=== PATIENT | male | born 1960 | race Caucasian/White ===

== ENCOUNTER 2017-04-13 15:00 | Outpatient (RCR) | payer MEDICARE, SELFPAY | END 2017-04-25 23:59 | LOC: NS 15:00 | PROVIDERS: Family Provider Family Medicine Geriatric Medicine; PCP Family Medicine Geriatric Medicine; Visit Provider Specialist | DX: E66.8 Other obesity (principal); Z71.3 Dietary counseling and surveillance | CPT/HCPCS: 97802; 97803 ==

== ENCOUNTER 2017-05-04 11:44 | Outpatient (RCR) | payer MEDICARE, SELFPAY | END 2017-05-23 23:59 | LOC: NS 11:44 | PROVIDERS: Family Provider Family Medicine Geriatric Medicine; PCP Family Medicine Geriatric Medicine; Visit Provider Specialist | DX: E66.8 Other obesity (principal); Z71.3 Dietary counseling and surveillance | CPT/HCPCS: 97803 ==

== ENCOUNTER → 2017-05-16 10:28 | Outpatient (CLI) | payer MEDICARE, SELFPAY ==
--- NOTE | 2017-05-16 10:32 | RAD_ITS ---
STUDY: X-RAY - LEFT SHOULDER REASON FOR EXAM: Male, 57 years old. Injury. Pain. TECHNIQUE: 5 view(s) of the shoulder. COMPARISON: None. FINDINGS: Normal glenohumeral articulation. 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 Normal acromion. Normal humeral head and visualized proximal humerus. The soft tissue structures are unremarkable. Normal visualized pulmonary apex. RAD/Shoulder min 2 Views IMPRESSION: Acromioclavicular joint arthrosis. No acute abnormality identified. Electronically Signed: Ritesh Rodriguez MD at 18:29 EST , Service support ,
--- NOTE | 2017-05-16 10:32 | RAD_ITS ---
STUDY: X-RAY - PELVIS AND RIGHT HIP REASON FOR EXAM: Male, 57 years old. Fall. Pain. TECHNIQUE: Radiological exam, hip, unilateral, with pelvis when performed; 1 view. The films are underpenetrated due to the patient's obesity. COMPARISON: None. FINDINGS: There is a non-specific bowel gas pattern. Normal visualized soft tissue structures. Normal bilateral iliac wings, sacroiliac joints and visualized sacrum. Normal bilateral superior and inferior pubic rami. Normal pubic symphysis. Normal bilateral ischial tuberosities. Normal visualized femoral head. Normal acetabulum. Normal hip joint. RAD/Hip 2-3 Views with Pelvis IMPRESSION: No significant abnormality identified. Electronically Signed: Ritesh Rodriguez MD at 18:29 EST , Service support ,
--- NOTE | 2017-05-16 10:38 | RAD_ITS ---
STUDY: X-RAY - LUMBAR SPINE REASON FOR EXAM: Male, 57 years old. Pain. TECHNIQUE: Only a single frontal view(s) of the lumbar spine were obtained due to the patient's pain. COMPARISON: None FINDINGS: This extremely limited study shows diffuse lumbar spondylosis. There is mild SI joint arthrosis. The visualized soft tissue structures are unremarkable. RAD/Lumbar Spine 2 or 3 Views IMPRESSION: Extremely limited lumbar spine study as described. Electronically Signed: Ritesh Rodriguez MD at 18:28 EST , Service support ,
== END ==
PROVIDERS: Family Provider Family Medicine Geriatric Medicine; PCP Family Medicine Geriatric Medicine; Visit Provider Family Medicine Geriatric Medicine
DX: R52 Pain, unspecified (principal)
CPT/HCPCS: 72100; 73030; 73502

== ENCOUNTER 2017-06-15 14:00 | Outpatient (RCR) | payer MEDICARE, SELFPAY | END 2017-06-23 23:59 | LOC: NS 14:00 | PROVIDERS: Family Provider Family Medicine Geriatric Medicine; PCP Family Medicine Geriatric Medicine; Visit Provider Specialist | DX: E66.8 Other obesity (principal); Z71.3 Dietary counseling and surveillance | CPT/HCPCS: 97803 ==

== ENCOUNTER → 2017-06-20 10:54 | Outpatient (CLI) | payer MEDICARE, SELFPAY ==
--- NOTE | 2017-06-20 10:57 | ECHOD_ITS ---
Reason For Study: SOB Procedure This was a 2D Doppler, Color Flow transthoracic echocardiogram. The study was technically difficult. The study was technically limited. The exam was of poor technical quality due to patient body habitus. Exam performed in department. Left Ventricle Normal LV size. The estimated ejection fraction is 30 %. Moderately severe global left ventricular systolic dysfunction. There is moderate to severe global hypokinesis of the left ventricle. Right Ventricle Normal RV size. ICD or pacer leads identified within the right ventricle. Mild global right ventricular systolic dysfunction. Atria Normal left atrium. Normal right atrium. Mitral Valve Normal mitral valve. Tricuspid Valve Normal tricuspid valve. Mild (1+) tricuspid valve insufficiency. Pulmonary artery systolic pressure is 33 mmHg. Aortic Valve The aortic valve is not well visualized. Great Vessels Mildly dilated aortic root. The pulmonary artery is normal size. Pericardium/Pleural No pericardial effusion. MMode/2D Measurements & Calculations LVIDd: 5.7 cm IVSd: 1.3 cm Ao root diam: 3.9 cm LVIDs: 4.6 cm LVPWd: 1.1 cm LA dimension: 5.9 cm RVDd: 5.8 cm FS: 19.2 % Doppler Measurements & Calculations MV E max christos: 128.1 cm/sec Ao V2 max: 108.2 cm/sec LV V1 max: 76.0 cm/sec Ao max P.7 mmHg LV V1 max P.3 mmHg Ao V2 mean: 80.0 cm/sec Ao mean P.7 mmHg Ao V2 VTI: 18.5 cm PA V2 max: 66.8 cm/sec TR max christos: 258.1 cm/sec TR max P.6 mmHg Interpretation Summary Normal LV size. The estimated ejection fraction is 30 %. Moderately severe global left ventricular systolic dysfunction. Mild (1+) tricuspid valve insufficiency. Pulmonary artery systolic pressure is 33 mmHg. Ordering Physician: Esteban Tim Chi Referring Physician: Esteban Tim Chi Performed By: Siobhan Avery, ESPERANZA, RVT
== END ==
PROVIDERS: Family Provider Family Medicine Geriatric Medicine; PCP Family Medicine Geriatric Medicine; Visit Provider Family Medicine Geriatric Medicine
DX: R06.02 Shortness of breath (principal)
CPT/HCPCS: 93306

== ENCOUNTER 2017-07-06 11:02 | Outpatient (RCR) | payer MEDICARE, SELFPAY | END 2017-07-23 23:59 | LOC: NS 11:02 | PROVIDERS: Family Provider Family Medicine Geriatric Medicine; PCP Family Medicine Geriatric Medicine; Visit Provider Specialist | DX: E66.8 Other obesity (principal); Z71.3 Dietary counseling and surveillance | CPT/HCPCS: 97803 ==

== ENCOUNTER → 2017-07-09 15:36 | Outpatient (CLI) | payer MEDICARE, SELFPAY ==
[2017-07-09 17:08] LABS: Anion Gap 6 (5-15); BUN 27 mg/dL (7-18); BUN/Creat Ratio 23.9 RATIO (10-20); Calcium,Total 8.7 mg/dL (8.5-10.1); Chloride 104 mmol/L (98-107); Creatinine, Serum 1.13 mg/dL (0.70-1.30); EST Glomerular Filtration Rate 71 mL/min (>60); Est Glom Filt Rate - Afr Amer 86 mL/min (>60); Glucose 105 mg/dL (74-106); Potassium 4.2 mmol/L (3.5-5.1); Sodium Level 139 mmol/L (136-145)
[2017-07-09 17:38] LABS: BNP,B-Type NATRIURETIC PEPTIDE 520.8 pg/mL (0-100)
[2017-07-09 20:48] LABS: Absolute Lymphocyte Count 1.02 X10^3/ul (0.83-4.51); Absolute Neutrophil Count 6.5 X10^3/uL (2.0-7.7); Basophil# 0.02 X10^3/uL; Basophil% 0.2 % (0-1); Eosinophil# 0.05 X10^3/uL; Eosinophils% 0.6 % (0-5); Hematocrit 44.1 % (40-54); Hemoglobin 14.2 g/dl (13.0-16.5); Lymphocyte # 1.02 X10^3/ul (4.0); Mean Corp Hgb Conc 32.2 g/gl (32-36); Mean Corpuscular Hgb 32.5 pg (27.0-32.0); Mean Corpuscular Volume 100.9 fL (80-94); Monocyte# 0.84 X10^3/uL; Monocyte% 9.9 % (0-10); Neutrophil # 6.52 X10^3/uL (2.7-7.7); Neutrophil % 77.1 % (47-70); Platelet Count 181 K/mm3 (150-450); RBC Distribution Width CV 19.5 % (11.6-14.6); RBC Distribution Width SD 71.1 fl (35.1-43.9); Red Blood Count 4.37 M/mm3 (4.6-6.2); White Blood Count 8.5 K/mm3 (4.4-11.0)
[2017-07-09 20:49] LABS: Differential Indicated SCAN CRITERIA MET; POSITIVE COUNT NO; POSITIVE DIFFERENTIAL NO; POSITIVE MORPHOLOGY YES
[2017-07-09 22:52] LABS: Anisocytosis 1+; Macrocytosis 1+; Polychromasia RARE
== END ==
PROVIDERS: Family Provider Family Medicine Geriatric Medicine; PCP Family Medicine Geriatric Medicine; Visit Provider Family Medicine Geriatric Medicine
DX: R06.02 Shortness of breath (principal)
CPT/HCPCS: 36415; 80048; 83880; 85025

== ENCOUNTER 2017-07-27 11:29 | Outpatient (RCR) | payer MEDICARE, SELFPAY | END 2017-08-23 23:59 | LOC: NS 11:29 | PROVIDERS: Family Provider Family Medicine Geriatric Medicine; PCP Family Medicine Geriatric Medicine; Visit Provider Specialist | DX: E66.8 Other obesity (principal); Z71.3 Dietary counseling and surveillance | CPT/HCPCS: 97803 ==

== ENCOUNTER 2017-08-24 10:48 | Outpatient (RCR) | payer MEDICARE, SELFPAY | END 2017-09-22 23:59 | LOC: NS 10:48 | PROVIDERS: Family Provider Family Medicine Geriatric Medicine; PCP Family Medicine Geriatric Medicine; Visit Provider Specialist | DX: E66.8 Other obesity (principal); Z71.3 Dietary counseling and surveillance | CPT/HCPCS: 97803 ==

== ENCOUNTER 2017-09-21 13:30 | Outpatient (RCR) | payer MEDICARE, SELFPAY ==
--- NOTE | 2017-08-10 13:54 | HP.PTEVAL_ITS ---
Patient's Visit Information ZAIN VILLARREAL is a 57 year old M referred to Physical Therapy by Ray Montgomery MD with a diagnosis of L shld strain/impingement syndrome/OA. Date of Evaluation: 08/10/17 Physical Therapist: Kimberly Valdez - Visit Plan Frequency: 2x /Week Duration: 4 Weeks Plan: +++Latex Allergy++++ please use latex free bands only. Pt wants the lump on the top of his shoulder addressed by the Dr. We can Start with stregthening of the RC, scapular and postural exercises with ice and heat PRN. We may start modalities once pt lump is addressed and cleared by MD to do so. - Subjective Subjective: Pt has CHF and walking back to the treatment rooms was a hike for the pt with some SOB. Pt took about 5 min to recover breathing. Pt did get a cortizone shot and did not help and it is now waking him up at night. When pt fell in Nov he flared it back up and the shots dont help anymore. Pt reports that his arms are getting numb now. Pt has increase shoulder pain above shouder level and sometimes it is even difficult to write. He does jewlry for a hobby and it is painful after awhile. He has shoulder pain but no neck pain. Pt had the shoulder pain once beofre and then he fell Feb 11 and his shoulder was the impact point and now it is killing him. July 1st injection of the shoulder and that it did nothing and they have not tried a second injection. He has had x-rays but not sure what they say. Pt started taking meloxicam 1X/ day and it seems to help a little bit. Pt sleeps on his L side and has tried to lay other positions and cant get comfortable. Pt reports that he has a mass on the top of his L shoulder that the Dr did not address - Pain L shoulder pain Pain Intensity (Out of 10): 5 Pain Intensity Range: 10 - Objective Gait: walks with a wide front wheeled walker with forearms on the walker. Pt is L handed: L shoulder AROM (sitting in a chair) :flexion 112 degrees and abduction 121 degrees. ER 59 degrees and IR to PSIS. R shoulder AROM (sitting in a chair): R [id number] degrees and R abd 165 degrees, and ER 59 degrees and IR to T12. L UE MMT: IR 4+/5, Er 3-/5, flex and abd 3-/5. R UE MMT: Ir 4+/5 , ER 3-/5 flex and abd 3-/5. Palpation: Top of L shoulder a palpable mass is felt on the L posterior medial to the AC joint. Tender under the L acrominon. + HK test on the L. + Empty can test for pain and weakness and audible popping - Goals Goal 1:: I HEP - Rehabilitation Potential Rehabilitation Potential: Good - Anticipated Interventions Patient/Client Instruction: Educate patient on: Condition, Plan of Care For the Purpose of:: To decrease pain, To increase ROM, To improve nutrient delivery to tissue, To improve muscle performance and motor function, To improve ability to perform ADL's, To improve performance and independence with ADL's Therapeutic Exercise to Include: Strength training, Postural training, Flexibilty training, Passive ROM, Active ROM, Scapular Strength/Stabilization For the Purpose of:: To decrease pain, To increase ROM, To improve nutrient delivery to tissue, To improve muscle performance and motor function, To improve ability to perform ADL's, To increase tolerance to activity/condition/ position, To improve performance and independence with ADL's, To improve ability of physical actions for home/community/work/leisure Cryotherapy (ice pack, ice massage): Yes Thermo therapy (hot pack): Yes For the Purpose of:: To decrease pain, To increase ROM, To improve nutrient delivery to tissue Thank you for the opportunity to evaluate your patient. For Medicare and Medicare HMO plans, please review the plan of care and approve it. It will need to be FAXED BACK to us at [phone] for Medicare purposes. Please let me know if there are questions or concerns regarding this plan of care. Physician Signature: Date:
--- NOTE | 2017-09-21 14:03 | HP.PTREVAL_ITS ---
Ray Montgomery MD, It has been my pleasure to treat ZAIN VILLARREAL over the last 10 visits for L shld strain/impingement syndrome/OA. Please see the progress note below for an update on the physical therapy plan of care! Subjective: Sunday the 6th injection of the shoulder and CAT SCAN of the L shoulder due to defilbulator. will see him when the CAT SCAN results are in. He takes a muscle relaxor at night and that is the only way he can sleep. He is on O2 and SOB today due to humidity Objective/Function: Pt SOB walking back to treatment rooms due to humidity. L [place] AROM: ER 45 degrees, flexion 100 degrees, abd 110 degrees, IR L4. L shoulder MMT: flexion 3-/5, abd 3-/5, ER 3-5, IR 4+/5, bicep 4/5. Palpation: tender to palpation along the bicep tendon. + empty can for crunching and pain and weakness. PROM of the L shoulder is greater than AROM of the L shoulder and pt had some increase pain when coming to neutral position from PROM elevation. Plan Plan: Hold chart until after Cat Scan. Pt will call in with results and further instruction from MD. Goals Goal 1:: I HEP Goal 2:: Decrease pain to 1/10 with ADL's Goal Progress: Not Progressing Goal 3:: Increase L shoulder AROM and be able to use the L UE better with ADL's Goal Progress: Not Progressing Anticipated Interventions Patient/Client Instruction: Educate patient on: Condition, Plan of Care For the Purpose of:: To decrease pain, To increase ROM, To improve nutrient delivery to tissue, To improve muscle performance and motor function, To improve ability to perform ADL's, To improve performance and independence with ADL's Therapeutic Exercise to Include: Strength training, Postural training, Flexibilty training, Passive ROM, Active ROM, Scapular Strength/Stabilization For the Purpose of:: To decrease pain, To increase ROM, To improve nutrient delivery to tissue, To improve muscle performance and motor function, To improve ability to perform ADL's, To increase tolerance to activity/condition/ position, To improve performance and independence with ADL's, To improve ability of physical actions for home/community/work/leisure Cryotherapy (ice pack, ice massage): Yes Thermo therapy (hot pack): Yes For the Purpose of:: To decrease pain, To increase ROM, To improve nutrient delivery to tissue Please do not hesitate to contact me at [phone] by phone or Fax: if you have questions or concerns regarding this new plan of care! Sincerely, Kimberly Valdez
--- NOTE | 2017-11-21 17:26 | HP.PTDCNRP_ITS ---
HP - Discharge Summary (1) - Patient Information ZAIN VILLARREAL was seen in my office for initial evaluation on 08/10/17. The following Plan of Care was established for this patient: Initial Frequency: 2x /Week Initial Duration: 4 Weeks - Anticipated Interventions Patient/Client Instruction: Educate patient on: Condition, Plan of Care For the Purpose of:: To decrease pain, To increase ROM, To improve nutrient delivery to tissue, To improve muscle performance and motor function, To improve ability to perform ADL's, To improve performance and independence with ADL's Therapeutic Exercise to Include: Strength training, Postural training, Flexibilty training, Passive ROM, Active ROM, Scapular Strength/Stabilization For the Purpose of:: To decrease pain, To increase ROM, To improve nutrient delivery to tissue, To improve muscle performance and motor function, To improve ability to perform ADL's, To increase tolerance to activity/condition/ position, To improve performance and independence with ADL's, To improve ability of physical actions for home/community/work/leisure Cryotherapy (ice pack, ice massage): Yes Thermo therapy (hot pack): Yes For the Purpose of:: To decrease pain, To increase ROM, To improve nutrient delivery to tissue This patient was last seen in our office 09/21/17. Pertinent comments regarding their Physical therapy will appear below: Pt was on hold until after CATSCAN but did not call in to reschedule. He will be discharged from our care at this time. At this point I will be discontinuing this patient from physical therapy. I would be happy to see this patient again in the future if found appropriate by the physician. Thank you! Kimberly Valdez
== END 2017-09-21 19:00 | disposition home or self-care (01) ==
LOC: PT 13:30
PROVIDERS: Family Provider Family Medicine Geriatric Medicine; PCP Family Medicine Geriatric Medicine; Visit Provider Specialist
DX: S43.012D Anterior subluxation of left humerus, subsequent encounter (principal)
CPT/HCPCS: 97110; 97140; 97162; 97530

== ENCOUNTER 2017-10-08 08:58 | Outpatient (RCR) | payer MEDICARE, SELFPAY | END 2017-10-23 23:59 | LOC: NS 08:58 | PROVIDERS: Family Provider Family Medicine Geriatric Medicine; PCP Family Medicine Geriatric Medicine; Visit Provider Specialist | DX: E66.8 Other obesity (principal); Z71.3 Dietary counseling and surveillance | CPT/HCPCS: 97803 ==

== ENCOUNTER 2017-11-09 08:27 | Outpatient (RCR) | payer MEDICARE, SELFPAY | END 2017-11-23 23:59 | LOC: NS 08:27 | PROVIDERS: Family Provider Family Medicine Geriatric Medicine; PCP Family Medicine Geriatric Medicine; Visit Provider Specialist | DX: E66.8 Other obesity (principal); Z71.3 Dietary counseling and surveillance | CPT/HCPCS: 97803 ==

== ENCOUNTER → 2017-11-19 12:04 | Outpatient (CLI) | payer MEDICARE, SELFPAY ==
[2017-11-19 13:33] LABS: Absolute Lymphocyte Count 0.84 X10^3/ul (0.83-4.51); Absolute Neutrophil Count 4.3 X10^3/uL (2.0-7.7); Basophil# 0.04 X10^3/uL; Basophil% 0.6 % (0-1); Eosinophil# 0.24 X10^3/uL; Eosinophils% 3.9 % (0-5); Hematocrit 41.9 % (40-54); Hemoglobin 14.2 g/dl (13.0-16.5); Lymphocyte # 0.84 X10^3/ul (4.0); Lymphocyte % 13.5 % (19-41); Mean Corp Hgb Conc 33.9 g/gl (32-36); Mean Corpuscular Hgb 36.6 pg (27.0-32.0); Mean Platelet Vol. 11.2 fl (6.2-12.0); Monocyte# 0.76 X10^3/uL; Monocyte% 12.2 % (0-10); Neutrophil # 4.32 X10^3/uL (2.7-7.7); Neutrophil % 69.6 % (47-70); Platelet Count 147 K/mm3 (150-450); RBC Distribution Width CV 14.9 % (11.6-14.6); RBC Distribution Width SD 59.4 fl (35.1-43.9); Red Blood Count 3.88 M/mm3 (4.6-6.2); White Blood Count 6.2 K/mm3 (4.4-11.0)
[2017-11-19 13:34] LABS: POSITIVE COUNT NO; POSITIVE DIFFERENTIAL NO; POSITIVE MORPHOLOGY NO
[2017-11-19 13:50] LABS: Prothrombin Time (Protime)PT. 13.5 SECONDS (11.7-14.9)
[2017-11-19 13:51] LABS: Partial Thromboplast Time 28.5 Seconds (24.1-36.2)
[2017-11-19 19:37] LABS: M R Staph aureus DNA By PCR Negative (Negative); Probe Check PASS; Specimen Processing Control PASS; Staph aureus DNA By PCR NEGATIVE (Negative)
== END ==
PROVIDERS: Family Provider Family Medicine Geriatric Medicine; PCP Family Medicine Geriatric Medicine; Visit Provider Family Medicine Geriatric Medicine
DX: D68.8 Other specified coagulation defects (principal); B95.62 Methicillin resistant Staphylococcus aureus infection as the cause of diseases classified elsewhere; L03.90 Cellulitis, unspecified
CPT/HCPCS: 36415; 85025; 85610; 85730; 87070; 87205; 87640

== ENCOUNTER 2017-12-21 08:19 | Outpatient (RCR) | payer MEDICARE, SELFPAY | END 2017-12-21 23:59 | LOC: NS 08:19 | PROVIDERS: Family Provider Family Medicine Geriatric Medicine; PCP Family Medicine Geriatric Medicine; Visit Provider Specialist | DX: E66.8 Other obesity (principal); Z71.3 Dietary counseling and surveillance | CPT/HCPCS: 97803 ==

== ENCOUNTER → 2018-02-21 15:07 | Outpatient (CLI) | payer MEDICARE, SELFPAY ==
[2018-02-21 17:41] LABS: Absolute Lymphocyte Count 0.54 X10^3/ul (0.83-4.51); Absolute Neutrophil Count 6.3 X10^3/uL (2.0-7.7); Basophil# 0.03 X10^3/uL; Basophil% 0.4 % (0-1); Eosinophil# 0.11 X10^3/uL; Eosinophils% 1.4 % (0-5); Hematocrit 42.3 % (40-54); Hemoglobin 13.2 g/dl (13.0-16.5); Lymphocyte # 0.54 X10^3/ul (4.0); Lymphocyte % 6.7 % (19-41); Mean Corp Hgb Conc 31.2 g/gl (32-36); Mean Corpuscular Volume 105.8 fL (80-94); Mean Platelet Vol. 10.6 fl (6.2-12.0); Monocyte# 1.04 X10^3/uL; Neutrophil % 78.4 % (47-70); Platelet Count 171 K/mm3 (150-450); RBC Distribution Width CV 15.9 % (11.6-14.6); RBC Distribution Width SD 61.7 fl (35.1-43.9)
[2018-02-21 17:44] LABS: Differential Indicated SCAN CRITERIA MET; POSITIVE COUNT NO; POSITIVE DIFFERENTIAL YES; POSITIVE MORPHOLOGY NO
[2018-02-21 18:03] LABS: ALB/GLOB Ratio 0.9 RATIO (0.9-2.4); AST(SGOT) 23 U/L (15-37); Alanine Aminotransfer ALT/SGPT 21 U/L (16-61); Albumin, Serum 3.5 g/dL (3.2-5.0); Alkaline Phosphatase 103 U/L (45-117); Anion Gap 8 (5-15); BUN 35 mg/dL (7-18); BUN/Creat Ratio 25.9 RATIO (10-20); Calcium,Total 8.7 mg/dL (8.5-10.1); Chloride 105 mmol/L (98-107); Creatinine, Serum 1.35 mg/dL (0.70-1.30); EST Glomerular Filtration Rate 58 mL/min (>60); Est Glom Filt Rate - Afr Amer 70 mL/min (>60); Globulin 3.8 g/dL (2.2-4.2); Glucose 98 mg/dL (74-106); Protein, Total 7.3 g/dL (6.4-8.2); Sodium Level 139 mmol/L (136-145)
[2018-02-21 18:18] LABS: Differential Comment SCANNED
--- OUTSIDE RECORDS SUMMARY | 2018-04-18 20:52 | XMS RPT_ITS ---
:1960 Author Organization OHIP Support Name Relationship Address Phone ARTURO VILLARREAL Unavailable [address] + [place] [address] D Unavailable Unavailable Unavailable PHIL, ARTURO Unavailable [address] + [place] [address] D Unavailable Unavailable Unavailable PHIL, ARTURO Unavailable [address] + [place] [address] D Unavailable Unavailable Unavailable PHIL, ARTURO Unavailable [address] + [place] [address] D Unavailable Unavailable Unavailable PHIL, ARTURO Unavailable [address] + [place] [address] D Unavailable Unavailable Unavailable PHIL, ARTURO Unavailable [address] + [place] [address] D Unavailable Unavailable Unavailable PHIL, ARTURO Unavailable [address] + [place] [address] D Unavailable Unavailable Unavailable PHIL, ARTURO Unavailable [address] + [place] [address] D Unavailable Unavailable Unavailable PHIL, ARTURO Unavailable [address] + [place] [address] D Unavailable Unavailable Unavailable PHIL, ARTURO Unavailable [address] + [place] [address] D Unavailable Unavailable Unavailable PHIL, ARTURO Unavailable [address] + [place] [address] D Unavailable Unavailable Unavailable PHIL, ARTURO Unavailable [address] + [place] [address] D Unavailable Unavailable Unavailable PHIL, ARTURO Unavailable [address] + [place] [address] D Unavailable Unavailable Unavailable PHIL, ARTURO Unavailable [address] + [place] [address] D Unavailable Unavailable Unavailable PHIL, ARTURO Unavailable [address] + [place] [address] D Unavailable Unavailable Unavailable PHIL, ARTURO Unavailable [address] + [place] [address] D Unavailable Unavailable Unavailable PHIL, ARTURO Unavailable [address] + [place] [address] D Unavailable Unavailable Unavailable PHIL, ARTURO Unavailable [address] + [place] [address] D Unavailable Unavailable Unavailable Care Team Providers Name Role Phone Eli, Dwaine Chi Attending Unavailable Eli, Dwaine Chi Primary Care Unavailable Ray Patten Attending Unavailable Valentina Ray Referring Unavailable Eli, Dwaine Chi Primary Care Unavailable Ray Patten Attending Unavailable Valentina, Ray Referring Unavailable Eli, Dwaine Chi Primary Care Unavailable Eli, Dwaine Chi Attending Unavailable Eli, Dwaine Chi Primary Care Unavailable Ray Patten Attending Unavailable Valentina, Ray Referring Unavailable Eli, Dwaine Chi Primary Care Unavailable Eli, Dwaine Chi Attending Unavailable Eli, Dwaine Chi Referring Unavailable Eli, Dwaine Chi Primary Care Unavailable Ray Patten Attending Unavailable Valentina Ray Referring Unavailable Eli, Dwaine Chi Primary Care Unavailable Eli, Dwaine Chi Attending Unavailable Eli, Dwaine Chi Primary Care Unavailable Zaid Steel Attending Unavailable Eli, Dwaine Chi Referring Unavailable Ray Patten Attending Unavailable Valentina, Ray Referring Unavailable Eli, Dwaine Chi Primary Care Unavailable Ray Patten Attending Unavailable Valentina, Ray Referring Unavailable Eli, Dwaine Chi Primary Care Unavailable Ray Patten Attending Unavailable Valentina, Ray Referring Unavailable Eli, Dwaine Chi Primary Care Unavailable Ray Patten Attending Unavailable Valentina, Ray Referring Unavailable Eli, Dwaine Chi Primary Care Unavailable Ray Patten Attending Unavailable Valentina, Ray Referring Unavailable Eli, Dwaine Chi Primary Care Unavailable Eli, Dwaine Chi Attending Unavailable Eli, Dwaine Chi Primary Care Unavailable Ray Patten Attending Unavailable Ray Patten Referring Unavailable Eli, Dwaine Chi Primary Care Unavailable Ray Patten Attending Unavailable Ray Patten Referring Unavailable Eli, Dwaine Chi Primary Care Unavailable Eli, Dwaine Chi Attending Unavailable Eli, Dwaine Chi Primary Care Unavailable APRIL ROMANO Referring Unavailable YANI LUNDY Referring Unavailable ANDRZEJ, DEEPA E Referring Unavailable ANDRZEJ, DEEPA E Attending Unavailable ANDRZEJ, DEEPA E Referring Unavailable ANDRZEJ, DEEPA E Referring Unavailable ANDRZEJ, DEEPA E Referring Unavailable ANDRZEJ, DEEPA E Referring Unavailable ELIA HENRY, (BRIM CUTTER) Attending Unavailable RAY PATTEN Referring Unavailable SCHWEIKERTJACKSON Referring Unavailable SCHWEIKERTJACKSON Referring Unavailable RAY PATTEN A Referring Unavailable ANDRZEJ, DEEPA E Attending Unavailable ELI, DWAINE CHI Referring Unavailable ANDRZEJ, DEEPA Attending Unavailable ELI, DWAINE-CHI Referring Unavailable ANDRZEJ, DEEPA Attending Unavailable ELI, DWAINE-CHI Referring Unavailable ELI, DWAINE-CHI Primary Care Unavailable ANDRZEJ, DEEPA Attending Unavailable ANDRZEJ, DEEPA Referring Unavailable ELI, DWAINE-CHI Primary Care Unavailable SCHWJACKSON GREENE A Referring Unavailable ELI, DWAINE-CHI Primary Care Unavailable SCHWJACKSON GREENE Referring Unavailable ELI, DWAINE-CHI Primary Care Unavailable SCHWEIKERT, JACKSON A Referring Unavailable ELI, DWAINE-CHI Primary Care Unavailable PROBLEMS PROBLEMS DATE TYPE CONDITION / CODE ATTENDING STATUS SOURCE 2018 Unknown E66.8 - Other obesity Ray Patten Active [facility] 11/23/2017 Active Essential (primary) NA Active [place] hypertension / Clinic Main I10(ICD-10) [place] Repository 11/19/2017 Unknown D68.8 - Other Eli, Dwaine Chi Active [place] specified coagulation Community defects / Hospital D68.8(ICD-10) Repository 08/15/2011 Active Other NA Active [facility] cardiomyopathies / Clinic Main I42.8(ICD-10) [place] Repository 11/16/2017 Active Chronic atrial NA Active [facility] fibrillation / Clinic Main I48.2(ICD-10) [place] Repository 08/15/2011 Admitting Unknown / NA Active [facility] UNK(Unknown) [facility] Repository 09/28/2017 Active Strain of muscle(s) EHREN, ELIA Active [facility] and tendon(s) of the C, (BRIM CUTTER) Clinic Other rotator cuff of left [place] shoulder, subsequent Repository encounter / S46.012D(ICD-10) 09/28/2017 Active Strain of muscle, EHREN, ELIA Active [facility] fascia and tendon of C, (BRIM CUTTER) Clinic Other long head of biceps, [place] left arm, subsequent Repository encounter / S46.112D(ICD-10) 09/28/2017 Active Primary EHREN, 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, left C, (BRIM CUTTER) Clinic Other shoulder / [place] M19.012(ICD-10) Repository 11/23/2017 Unknown S43.012D - Anterior ValentinaRay Active [place] subluxation of left Community humerus, subsequent Hospital encounter / Repository S43.012D(ICD-10) 07/11/2017 Unknown R06.02 - Shortness of [place], [place] Active [place] breath / Community R06.02(ICD-10) Hospital Repository 05/11/2017 Active Paroxysmal atrial NA Active [facility] fibrillation / Clinic Main I48.0(ICD-10) [place] Repository 05/11/2017 Active 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 / I50.42(ICD-10) 06/12/2016 Active Other symptoms and NA Active [facility] signs concerning food Clinic Main and fluid intake / [place] R63.8(ICD-10) Repository 08/15/2011 Active Acute combined NA Active [facility] systolic (congestive) Clinic Main and diastolic [place] (congestive) heart Repository failure / I50.41(ICD-10) 03/20/2017 Active Unknown / NA Active [facility] UNK(Unknown) Clinic Main [place] Repository 03/13/2017 Unknown R53.83 - Other Eli, Dwaine Chi Active [facility] fatigue / Community R53.83(ICD-10) Hospital Repository 03/13/2017 Unknown E83.49 - Other Eli, Dwaine Chi Active [place] disorders of Community magnesium metabolism [facility] / E83.49(ICD-10) Repository PROCEDURES PROCEDURES No Procedure Records FoundRESULTS RESULTS CBC W/DIFF, AUTOMATED Collected: 02/21/2018 Status: F Source: [place] [facility] TYPE CODE TESTS RESULT OUT OF RANGE REFERENCE UNITS LAB L100.1000 4.4-11.0 K/mm3 Normal WBC 8.0 LAB L100.1200 4.6-6.2 M/mm3 Low RBC 4.00 LAB L100.1300 13.0-16.5 g/dl Normal HGB 13.2 LAB L100.1400 40-54 % Normal HCT 42.3 LAB L100.1500 80-94 fL High MCV 105.8 LAB L100.1600 27.0-32.0 pg High MCH 33.0 LAB L100.1700 32-36 g/gl Low MCHC 31.2 LAB L100.1810 11.6-14.6 % High RDW CV 15.9 LAB L100.1820 35.1-43.9 fl High RDW SD 61.7 LAB L100.1900 150-450 K/mm3 Normal PLT 171 LAB L100.2000 6.2-12.0 fl Normal MPV 10.6 LAB L100.2100 47-70 % High NEUT% 78.4 LAB L100.2200 19-41 % Low LY% 6.7 LAB L100.2300 0-10 % High MONO% 13.0 LAB L100.2400 0-5 % Normal EO% 1.4 LAB L100.2500 0-1 % Normal BASO% 0.4 LAB L100.2550 0.0-0.9 % Normal IM GRAN % 0.100 Result Comment: IG% - Immature Granulocytes (promyelocytes, myelocytes and metamyelocytes) > 1% indicates that a LEFT SHIFT is Present. LAB L100.2620 2.0-7.7 X10 3/uL Normal Absolute Neut 6.3 LAB L100.2720 0.83-4.51 X10 3/ul Low Absolute Lymph 0.54 LAB L100.4500 Normal SMEAR COMMENT SCANNED Result Comment: LYMPHOPENIA NOTED Performed By: #### L100.0100 #### [facility] [address] [place], [place], [id number] COMPREHENSIVE METABOLIC Collected: 02/21/2018 Status: F [facility]10 PM [facility] REPOSITORY TYPE CODE TESTS RESULT OUT OF RANGE REFERENCE UNITS LAB L501.0100 74-106 mg/dL Normal GLU 98 Result Comment: Please note revised GLUCOSE reference range effective 2017. LAB L501.1000 7-18 mg/dL High BUN 35 LAB L501.1100 0.70-1.30 mg/dL High CREAT,SERUM 1.35 Result Comment: The validity of the calculated GFR AND GFRAA in patients over 70 years has not been determined. Clinical correlation is essential. LAB L501.1110 >60 mL/min Low EST GFR 58 Result Comment: Non- GFR Calc LAB L501.1115 >60 mL/min Normal EST GFR - AA 70 Result Comment: GFR Calc LAB L501.1300 10-20 RATIO High BUN/CRE 25.9 LAB L501.1500 6.4-8.2 g/dL T Normal PROT 7.3 LAB L501.1800 3.2-5.0 g/dL Normal ALB 3.5 LAB L501.1950 2.2-4.2 g/dL Normal GLOB 3.8 LAB L501.2000 0.9-2.4 RATIO Normal A/G 0.9 LAB L501.2200 8.5-10.1 mg/dL CA Normal 8.7 LAB L501.4100 15-37 U/L Normal AST 23 LAB L501.4305 45-117 U/L Normal ALK P 103 LAB L501.4405 16-61 U/L Normal ALT 21 LAB L501.4600 0.20-1.00 mg/dL T Normal BILI 0.90 LAB L501.5300 136-145 mmol/L NA Normal 139 LAB L501.5600 3.5-5.1 mmol/L K Normal 5.0 LAB L501.5900 98-107 mmol/L CL Normal 105 LAB L501.6100 21.0-32.0 mmol/L Normal CO2 26.0 LAB L501.6200 5-15 Normal GAP 8 Performed By: #### L500.4050, L501.9520 #### [facility] [address] [place], [place], [address] THYROID STIM HORMONE Collected: 02/21/2018 Status: F Source: [place] ([facility]) 3:10 PM [facility] REPOSITORY TYPE CODE TESTS RESULT OUT OF RANGE REFERENCE UNITS LAB L501.9520 0.358-3.74 uIU/mL Normal TSH 3.70 Performed By: #### L500.4050, L501.9520 #### [facility] [address] [place], [address] TESTOSTERONE, SERUM TOTAL Collected: 02/21/2018 Status: F Source: [place] 3:10 PM [facility] REPOSITORY TYPE CODE TESTS RESULT OUT OF REFERENCE UNITS RANGE LAB L509.3000 ng/dL Testosterone Normal 319.17 Result Comment: NORMAL REFERENCE RANGES MALE AGE <50 123.06 - 813.86 ng/dL MALE AGE >50 89.98 - 780.10 ng/dL FEMALE PREMENOPAUSE AGE 21 - 60 9.01 - 47.94 ng/dL FEMALE POSTMENOPAUSE AGE 45 - 89 <7.00 - 45.62 ng/dL REFERENCE RANGE AND METHODOLOGY CHANGED 03/14/2017 Performed By: #### L509.3000 #### [facility] [address] [place], [address] BASIC METABOLIC PANL Collected: 01/25/2018 Status: F Source: [place] 1:42 PM [facility] REPOSITORY TYPE CODE TESTS RESULT OUT OF REFERENCE UNITS RANGE LAB GLU 74-99 mg/dL Glucose 97 LAB BUN 7-21 mg/dL BUN High 34 LAB CRET 0.73-1.22 mg/dL Creatinine 1.16 LAB NA 136-144 mmol/L Sodium 141 LAB K 3.7-5.1 mmol/L Potassium 5.0 LAB CL 97-105 mmol/L Chloride High 106 LAB CO2 22-30 mmol/L CO2 28 LAB AGAP 9-18 mmol/L Low Anion Gap 7 LAB CA 8.5-10.2 mg/dL Calcium, Total 9.7 LAB GFRAA eGFR- >60 Amer. LAB GFRNAA . eGFR-All Other Races >60 Result Comment: eGFR (Estimated GFR) Units of measure: mL/min/1.73 meters squared eGFR is derived from the reexpressed MDRD Study equation using the following parameters: serum creatinine, age, gender and race. The creatinine assay has been calibrated to be traceable to IDAZ. An eGFR <60 mL/min/1.73m2 for >3 months is consistent with chronic kidney disease. Refer to KDOQI guidelines for clinical interpretation. In patients with unstable renal function, e.g. those with acute kidney injury, the eGFR may not accurately reflect actual GFR. OBSOLETE Observed: 01/18/2018 Status: COMPLETED Source: [facility] 8:00 AM CLINIC OTHER CAMPUS REPOSITORY Procedure (AKEPD) PHILLILIANA Herrera ([id number]) 1960 M Date Time Provider Department 01/18/18 8:00 AM REM DEVICE CK AKEPD During your visit today, we recorded the following information about you: Referring Provider: JACKSON FARLEY [[id number]] Allergies As of Date: 01/18/2018 Noted Allergy Reaction COUMADIN (WARFARIN SODIUM) 12/13/2011 14 - Other: See Comments Comments: oversensitive. GI Bleed LATEX 01/31/2005 14 - Other: See Comments Comments: skin breakdown- no resp difficulty Date Reviewed: 11/16/2017 Reviewed by: Mary Orantes - Fully Assessed Reason for Visit: Remote ICD Follow Up [1924] Visit Diagnosis:Cardiomyopathy, nonischemic (HCC) [I42.8] Prescriptions as of 01/18/2018 Sig: SPIRONOLACTONE 25 MG TABLET Take 1 tablet by mouth twice * MELOXICAM 15 MG TABLET Take 15 mg by mouth once xenia* LOSARTAN 50 MG TABLET Take 0.5 tablets by mouth onc* AMIODARONE 200 MG TABLET TAKE 2 TABLETS (400MG) BY CLAIRE* BUPROPION HCL 100 MG TABLET Take 100 mg by mouth once john* DOCUSATE SODIUM 100 MG TABLET Take by mouth. FLUTICASONE FUROATE 100 MCG/A* Inhale as instructed. FUROSEMIDE 40 MG TABLET Take 2 tablets by mouth twice* CICLOPIROX 8 % TOPICAL SOLUTI* Apply 1 application to affect* CYANOCOBALAMIN (VIT B-12) 1,0* Take 1 tablet by mouth once d* CARVEDILOL 12.5 MG TABLET Take 1.5 tablets by mouth twi* ACETAMINOPHEN 325 MG TABLET Take 1 tablet by mouth every * OXYCODONE 5 MG TABLET Take 1-2 tablets by mouth rolo* Patient taking differently: Take 10 mg by mouth every 4 h* ASPIRIN 81 MG TABLET,DELAYED * Take 81 mg by mouth once xenia* CICLOPIROX 8 % TOPICAL SOLUTI* Apply 1 application to affect* MULTI VITAMIN ORAL Take by mouth. PROAIR HFA INHALATION Inhale as instructed. SULFASALAZINE 500 MG TABLET Take 500 mg by mouth three ti* MAGNESIUM OXIDE 400 MG CAPSULE Take 1 capsule by mouth once * OMEPRAZOLE 20 MG CAPSULE,RAMY* Take 1 capsule by mouth once * SENNOSIDES 8.6 MG TABLET Take 1 tablet by mouth twice * SERTRALINE 100 MG TABLET Take 100 mg by mouth once john* * NITROQUICK 0.4 MG SUBLINGUAL * Take one tablet sublingually * * AMBIEN 10 MG TABLET Take one(1) tablet daily at b* * ATIVAN 0.5 MG TABLET Take one(1) tablet two(2) lisa* Problem List As Of Date 01/18/2018 Noted Resolved GYNECOMASTIA [N62] INVALID FOR* EDEMA [R60.9] INVALID FOR* Lymphedema [I89.0] Sleep apnea [G47.30] More... Cardiomyopathy, nonischemic [I42.8] INVALID FOR* Priority: E More... Impaired fasting glucose [R73.01] INVALID FOR* Obesity, morbid [E66.01] INVALID FOR* More... Protein C deficiency [D68.59] INVALID FOR* More... 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 Chronic pain [G89.29] INVALID FOR* More... Paroxysmal VT [I47.2] INVALID FOR* Priority: B More... Acute combined systolic and diastolic heart khari*INVALID FOR* Priority: C More... A-fib [I48.91] INVALID FOR* Priority: D More... Hyponatremia [E87.1] INVALID FOR* More... Dual implantable cardioverter-defibrillator in *INVALID FOR*08/20/2014 More... Physical deconditioning [R53.81] INVALID FOR* More... Panniculitis [M79.3] INVALID FOR* Umbilical hernia without mention of obstruction*INVALID FOR* S/P ICD (internal cardiac defibrillator) proced*INVALID FOR* SVT (supraventricular tachycardia) ([facility]) [I47.1]INVALID FOR* UTI (lower urinary tract infection) [N39.0] INVALID FOR* BPH (benign prostatic hyperplasia) [N40.0] INVALID FOR* Morbid obesity (HCC) [E66.01] INVALID FOR* Adult BMI >=70 kg/sq m (HCC) [Z68.45] INVALID FOR* Ventral hernia [K43.9] INVALID FOR* PVD (peripheral vascular disease) ([facility]) [I73.9] INVALID FOR* Weight disorder [R63.8] INVALID FOR* Encounter Status:Closed by ARIEL BRICE on 01/18/18 ALT Collected: 11/23/2017 Status: F Source: [place] 2:53 PM [facility] REPOSITORY TYPE CODE TESTS RESULT OUT OF RANGE REFERENCE UNITS LAB ALT 10-54 U/L ALT 16 Performed By: #### ALT, BMP #### [facility] [address] [address] BASIC METABOLIC PANL Collected: 11/23/2017 Status: F Source: [place] 2:53 PM [facility] REPOSITORY TYPE CODE TESTS RESULT OUT OF REFERENCE UNITS RANGE LAB GLU 74-99 mg/dL Glucose 91 Result Comment: The [place] Diabetes Association (ADA) provides guidance for cutoff values for fasting glucose and random glucose. The ADA defines fasting as no caloric intake for at least 8 hours. Fas ting plasma glucose results between 100 to 125 mg/dL indicate increased risk for diabetes (prediabetes). Fasting plasma glucose results greater than or equal to 126 mg/dL meet the criteria for diagnosis of diabetes. In the absence of unequivocal hyperglycemia, results should be confirmed by repeat testing. In a patient with classic symptoms of hyperglycemia or hyperglycemic crisis, random plasma glucose results greater than or equal to 200 mg/dL meet the criteria for diagnosis of diabetes. Reference: Standards of Medical Care in Diabetes 2016, [place] Diabetes Association. Diabetes Care. 2016.39(Suppl 1). LAB BUN 9-24 mg/dL BUN High 31 LAB CRET 0.73-1.22 mg/dL Creatinine 1.22 LAB NA 136-144 mmol/L Sodium 138 LAB K 3.7-5.1 mmol/L Potassium 4.9 LAB CL 97-105 mmol/L Chloride 99 LAB CO2 22-30 mmol/L CO2 24 LAB AGAP 9-18 mmol/L Anion Gap 15 LAB CA 8.5-10.2 mg/dL Calcium, Total 9.5 LAB GFRAA eGFR- Amer. >60 LAB GFRNAA . eGFR-All Other Races >60 Result Comment: eGFR (Estimated GFR) Units of measure: mL/min/1.73 meters squared eGFR is derived from the reexpressed MDRD Study equation using the following parameters: serum creatinine, age, gender and race. The creatinine assay has been calibrated to be traceable to IDMS. An eGFR <60 mL/min/1.73m2 for >3 months is consistent with chronic kidney disease. Refer to KDOQI guidelines for clinical interpretation. In patients with unstable renal function, e.g. those with acute kidney injury, the eGFR may not accurately reflect actual GFR. Performed By: #### ALT, BMP #### [facility] [address] [id number] MRSA WOUND DNA BY Collected: 11/19/2017 Status: F Source: [place] PCR 2:28 PM [facility] REPOSITORY Order Comment: Specimen Source? WOUND VAC TYPE CODE TESTS RESULT OUT OF RANGE REFERENCE UNITS LAB L8200.1100 Negative Normal MRSA Negative RESULT LAB L8200.1150 Negative Normal SA RESULT NEGATIVE Performed By: #### L8200.1075 #### [facility] [place], [address] Observed: 11/19/2017 Status: F Source: [place] CULTURE, WOUND 2:28 PM [facility] REPOSITORY Gram Stain Gram Stain 1+ Epithelial cells 1+ White Blood Cells No organisms seen Wound Culture Possible skin contamination, further Identification and sensitivity will be performed only by physician's request. ORGANISM 1: Bacillus sp., not anthracis Amount Growth Rare ORGANISM 2: Coag Negative Staph Amount Growth Rare Performed By: #### M100.1400 #### [facility] [address] [facility] [place], [place], [address] CBC W/DIFF, AUTOMATED Collected: 11/19/2017 Status: F Source: [place] 12:05 PM [facility] REPOSITORY TYPE CODE TESTS RESULT OUT OF RANGE REFERENCE UNITS LAB L100.1000 4.4-11.0 K/mm3 Normal WBC 6.2 LAB L100.1200 4.6-6.2 M/mm3 Low RBC 3.88 LAB L100.1300 13.0-16.5 g/dl Normal HGB 14.2 LAB L100.1400 40-54 % Normal HCT 41.9 LAB L100.1500 80-94 fL High MCV 108.0 LAB L100.1600 27.0-32.0 pg High MCH 36.6 LAB L100.1700 32-36 g/gl Normal MCHC 33.9 LAB L100.1810 11.6-14.6 % High RDW CV 14.9 LAB L100.1820 35.1-43.9 fl High RDW SD 59.4 LAB L100.1900 150-450 K/mm3 Low PLT 147 LAB L100.2000 6.2-12.0 fl Normal MPV 11.2 LAB L100.2100 47-70 % Normal NEUT% 69.6 LAB L100.2200 19-41 % Low LY% 13.5 LAB L100.2300 0-10 % High MONO% 12.2 LAB L100.2400 0-5 % Normal EO% 3.9 LAB L100.2500 0-1 % Normal BASO% 0.6 LAB L100.2550 0.0-0.9 % Normal IM GRAN % 0.200 Result Comment: IG% - Immature Granulocytes (promyelocytes, myelocytes and metamyelocytes) > 1% indicates that a LEFT SHIFT is Present. LAB L100.2620 2.0-7.7 X10 3/uL Normal Absolute Neut 4.3 LAB L100.2720 0.83-4.51 X10 3/ul Normal Absolute Lymph 0.84 Performed By: #### L100.0100 #### [facility] [address] [place], [place], [address] PROTHROMBIN TIME W/INR Collected: 11/19/2017 Status: F Source: [place] 12:05 PM [facility] REPOSITORY TYPE CODE TESTS RESULT OUT OF RANGE REFERENCE UNITS LAB L300.4150 11.7-14.9 SECONDS Normal PROTIME 13.5 LAB L300.4200 Normal INR 1.0 Performed By: #### L300.3900, L300.4310 #### [facility] [address] [place], [place], [address] PARTIAL THROMBOPLAST Collected: 11/19/2017 Status: F Source: [place] TIME 12:05 PM [facility] REPOSITORY TYPE CODE TESTS RESULT OUT OF RANGE REFERENCE UNITS LAB L300.4310 24.1-36.2 Seconds Normal PTT 28.5 Performed By: #### L300.3900, L300.4310 #### [facility] [address] [place], [address] BASIC METABOLIC PANL Collected: 11/16/2017 Status: F Source: [place] 3:32 PM [facility] REPOSITORY TYPE CODE TESTS RESULT OUT OF REFERENCE UNITS RANGE LAB GLU 74-99 mg/dL Glucose 92 Result Comment: The [place] Diabetes Association (ADA) provides guidance for cutoff values for fasting glucose and random glucose. The ADA defines fasting as no caloric intake for at least 8 hours. Fas ting plasma glucose results between 100 to 125 mg/dL indicate increased risk for diabetes (prediabetes). Fasting plasma glucose results greater than or equal to 126 mg/dL meet the criteria for diagnosis of diabetes. In the absence of unequivocal hyperglycemia, results should be confirmed by repeat testing. In a patient with classic symptoms of hyperglycemia or hyperglycemic crisis, random plasma glucose results greater than or equal to 200 mg/dL meet the criteria for diagnosis of diabetes. Reference: Standards of Medical Care in Diabetes 2016, [place] Diabetes Association. Diabetes Care. 2016.39(Suppl 1). LAB BUN 9-24 mg/dL BUN High 43 LAB CRET 0.73-1.22 mg/dL Creatinine High 1.59 LAB NA 136-144 mmol/L Sodium 141 LAB K 3.7-5.1 mmol/L Potassium 5.1 LAB CL 97-105 mmol/L Chloride 100 LAB CO2 22-30 mmol/L CO2 27 LAB AGAP 9-18 mmol/L Anion Gap 14 LAB CA 8.5-10.2 mg/dL Calcium, Total 9.5 LAB GFRAA eGFR- Amer. 55 LAB GFRNAA . eGFR-All Other Races 45 Result Comment: eGFR (Estimated GFR) Units of measure: mL/min/1.73 meters squared eGFR is derived from the reexpressed MDRD Study equation using the following parameters: serum creatinine, age, gender and race. The creatinine assay has been calibrated to be traceable to IDMS. An eGFR <60 mL/min/1.73m2 for >3 months is consistent with chronic kidney disease. Refer to KDOQI guidelines for clinical interpretation. In patients with unstable renal function, e.g. those with acute kidney injury, the eGFR may not accurately reflect actual GFR. Performed By: #### BMP #### [facility] [address] [address] ALT Collected: 11/16/2017 Status: F Source: [place] 3:32 PM [facility] REPOSITORY TYPE CODE TESTS RESULT OUT OF RANGE REFERENCE UNITS LAB ALT 10-54 U/L ALT 16 Performed By: #### ALT, TSH #### [facility] [address] [place] [address] TSH Collected: 11/16/2017 Status: F Source: [place] 3:32 PM [facility] REPOSITORY TYPE CODE TESTS RESULT OUT OF RANGE REFERENCE UNITS LAB TSH 0.400-5.500 uU/mL TSH 3.990 Performed By: #### ALT, TSH #### [place] [id number] PROGRESS Observed: 11/16/2017 Status: COMPLETED Source: [place] 3:15 PM [facility] REPOSITORY HNO ID: [id number] Author: Deepa Donnelly Service: (none) Author Type: Physician Type: Progress Notes Filed: 11/16/2017 5:14 PM Note Text: PERTINENT CARDIAC HISTORY CHF Atrial fib - no a/c due to recurrent bleeds SVT - ablation 2003 TEX - BiPAP HTN Recurrent bleeding on warfarin Multiple venous thrombosis - protein c deficiency Cardiomyopathy - nonischemic, EF 40% 2014 Sustained VT - ICD 2011 ADHERENCE TO GUIDELINES RHYS-I or ARB for HF with prior LVEF<40 (NQF 0081) - met ASA or Plavix for ASHD (NQF 0067) - met Beta mayelin for ASHD with prior AL or prior LVEF<40 (NQF 0070) - met Beta mayelin for HF with prior LVEF<40 (NQF 0083) - met RHYS-I or ARB for ASHD with DM or prior LVEF<40 (NQF 0066) - met Statin therapy for ASHD or FHL or DM - N/A BMI documented and plan if >25 (NQF 0421) - lifestyle recommendation form Tobacco use screening and referral (NQ 0028) - lifestyle recommendation form Recommendation for whole food, plant based diet - lifestyle recommendation form CLINICAL IMPRESSION/PLAN: Liliana Villarreal is doing well. His cardiac issues are stable. He's been advised to continue his current medication. He will have basic profile, TSH, ALT and magnesium level for follow-up of his drug therapy. He has had a follicular type rash over his upper body for the last few weeks. He will be seeing primary care in the next few days and has been advised to address this with Dr. Benitez. He reports that he does not have any pests in the house. I will see him in 6 months or as needed Written and verbal health teaching given to patient, patient verbalizes understanding and agrees with treatment plan. DIAGNOSIS FOR VISIT: CHF Atrial fibrillation HISTORY OF PRESENT ILLNESS Liliana Villarreal returns for follow-up of multiple cardiac issues, as noted above. He reports that his exercise tolerance has been limited, but stable. He is unaware of his heart rhythm. He's had no recent chest discomfort. His edema has been stable. He's had no TIAs, amaurosis. ALLERGIES: ALLERGIES Allergen Reactions - Coumadin [Warfarin * Other: See Comments oversensitive. GI Bleed - Latex Other: See Comments skin breakdown- no resp difficulty CURRENT OUTPATIENT MEDICATIONS: meloxicam (MOBIC) 15 mg tablet Take 15 mg by mouth once daily. amiodarone (PACERONE) 200 mg tablet TAKE 2 TABLETS (400MG) BY MOUTH EVERY MORNING spironolactone (ALDACTONE) 25 mg tablet Take 2 tablets by mouth twice daily. buPROPion (WELLBUTRIN) 100 mg tablet Take 100 mg by mouth once daily. Docusate Sodium 100 mg tab Take by mouth. losartan (COZAAR) 50 mg tablet Take 50 mg by mouth once daily. fluticasone furoate (ARNUITY ELLIPTA) 100 mcg/actuation dsdv Inhale as instructed. furosemide (LASIX) 40 mg tablet Take 2 tablets by mouth twice daily. 40 mg in the am and 40 mg in the pm Ciclopirox (PENLAC) 8 % solution Apply 1 application to affected area twice daily. TO AFFECTED AREA. cyanocobalamin (VITAMIN B-12) 1,000 mcg tab Take 1 tablet by mouth once daily. carvedilol (COREG) 12.5 mg tablet Take 1.5 tablets by mouth twice daily with meals. acetaminophen (TYLENOL) 325 mg tablet Take 1 tablet by mouth every 4 hours as needed. oxyCODONE immediate release (PERCOLONE) 5 mg immediate release tablet Take 1-2 tablets by mouth every 4 hours as needed. aspirin, enteric coated (ASPIRIN, ENTERIC COATED) 81 mg EC tablet Take 81 mg by mouth once daily. Ciclopirox (LOPROX) 8 % solution Apply 1 application to affected area daily at bedtime. MULTIVIT ANDMINERALS/FERROUS FUM (MULTI VITAMIN ORAL) Take by mouth. ALBUTEROL SULFATE (PROAIR HFA INHALATION) Inhale as instructed. sulfaSALAzine (SULFAZINE) 500 mg tablet Take 500 mg by mouth three times daily. magnesium oxide 400 mg cap Take 1 capsule by mouth once daily. omeprazole (PRILOSEC) 20 mg capsule Take 1 capsule by mouth once daily. senna (SENEXON) 8.6 mg Tab Take 1 tablet by mouth twice daily. sertraline (ZOLOFT) 100 mg tablet Take 100 mg by mouth once daily. 1 in the am and 1/2 in the pm nitroglycerin(NITROQUICK 0.4 MG SUBLINGUAL TAB) Take one tablet sublingually for chest pain. If no relief, call 911. zolpidem (AMBIEN) 10 mg ORAL Tab Take one(1) tablet daily at bedtime. lorazepam (ATIVAN) 0.5 mg ORAL Tab Take one(1) tablet two(2) times daily. prn PHYSICAL EXAMINATION: VITAL SIGNS: BP 98/66 Pulse 80 Wt 440 lb 6.4 oz (199.8kg) Chest: Clear to percussion and auscultation. Trachea is midline. Air entry is equal. Cardiac: Regular rhythm. S1 and S2 are normal. PMI is nondisplaced. There is a soft systolic ejection murmur. Carotids are brisk without bruits. JVP is less than 10 cm. Abdomen: Obesity and large pannus preclude examination. There are no pulsatile masses or bruits. No liver enlargement. Bowel sounds are active. Extremities: 1 plus edema. Pulses are intact and symmetrical. Recent labs were reviewed. Renal function is normal. TSH was normal. Electronically Signed: Deepa Donnelly MD November 16, 2017 3:15 PM CC: Dwaine Benitez MD CNOV Observed: 11/16/2017 Status: COMPLETED Source: [place] 3:00 PM [facility] REPOSITORY Office Visit (CAWSTR) LILIANA VILLARREAL ([id number]) 1960 M Date Time Provider Department 11/16/17 3:00 PM DEEPA DONNELLY CAWSTR During your visit today, we recorded the following information about you: Pulse Blood pressure Weight 80/minute 98/66 199.8 kg Deepa Donnelly MD 11/16/2017 5:14 PM Signed PERTINENT CARDIAC HISTORY CHF Atrial fib - no a/c due to recurrent bleeds SVT - ablation 2003 TEX - BiPAP HTN Recurrent bleeding on warfarin Multiple venous thrombosis - protein c deficiency Cardiomyopathy - nonischemic, EF 40% 2014 Sustained VT - ICD 2011 ADHERENCE TO GUIDELINES RHYS-I or ARB for HF with prior LVEF<40 (NQF 0081) - met ASA or Plavix for ASHD (NQF 0067) - met Beta mayelin for ASHD with prior AL or prior LVEF<40 (NQF 0070) - met Beta mayelin for HF with prior LVEF<40 (NQF 0083) - met RHYS-I or ARB for ASHD with DM or prior LVEF<40 (NQF 0066) - met Statin therapy for ASHD or FHL or DM - N/A BMI documented and plan if >25 (NQF 0421) - lifestyle recommendation form Tobacco use screening and referral (NQF 0028) - lifestyle recommendation form Recommendation for whole food, plant based diet - lifestyle recommendation form CLINICAL IMPRESSION/PLAN: Liliana Villarreal is doing well. His cardiac issues are stable. He's been advised to continue his current medication. He will have basic profile, TSH, ALT and magnesium level for follow-up of his drug therapy. He has had a follicular type rash over his upper body for the last few weeks. He will be seeing primary care in the next few days and has been advised to address this with Dr. Benitez. He reports that he does not have any pests in the house. I will see him in 6 months or as needed Written and verbal health teaching given to patient, patient verbalizes understanding and agrees with treatment plan. DIAGNOSIS FOR VISIT: CHF Atrial fibrillation HISTORY OF PRESENT ILLNESS Liliana Villarreal returns for follow-up of multiple cardiac issues, as noted above. He reports that his exercise tolerance has been limited, but stable. He is unaware of his heart rhythm. He's had no recent chest discomfort. His edema has been stable. He's had no TIAs, amaurosis. ALLERGIES: ALLERGIES Allergen Reactions - Coumadin [Warfarin * Other: See Comments oversensitive. GI Bleed - Latex Other: See Comments skin breakdown- no resp difficulty CURRENT OUTPATIENT MEDICATIONS: meloxicam (MOBIC) 15 mg tablet Take 15 mg by mouth once daily. amiodarone (PACERONE) 200 mg tablet TAKE 2 TABLETS (400MG) BY MOUTH EVERY MORNING spironolactone (ALDACTONE) 25 mg tablet Take 2 tablets by mouth twice daily. buPROPion (WELLBUTRIN) 100 mg tablet Take 100 mg by mouth once daily. Docusate Sodium 100 mg tab Take by mouth. losartan (COZAAR) 50 mg tablet Take 50 mg by mouth once daily. fluticasone furoate (ARNUITY ELLIPTA) 100 mcg/actuation dsdv Inhale as instructed. furosemide (LASIX) 40 mg tablet Take 2 tablets by mouth twice daily. 40 mg in the am and 40 mg in the pm Ciclopirox (PENLAC) 8 % solution Apply 1 application to affected area twice daily. TO AFFECTED AREA. cyanocobalamin (VITAMIN B-12) 1,000 mcg tab Take 1 tablet by mouth once daily. carvedilol (COREG) 12.5 mg tablet Take 1.5 tablets by mouth twice daily with meals. acetaminophen (TYLENOL) 325 mg tablet Take 1 tablet by mouth every 4 hours as needed. oxyCODONE immediate release (PERCOLONE) 5 mg immediate release tablet Take 1-2 tablets by mouth every 4 hours as needed. aspirin, enteric coated (ASPIRIN, ENTERIC COATED) 81 mg EC tablet Take 81 mg by mouth once daily. Ciclopirox (LOPROX) 8 % solution Apply 1 application to affected area daily at bedtime. MULTIVIT ANDMINERALS/FERROUS FUM (MULTI VITAMIN ORAL) Take by mouth. ALBUTEROL SULFATE (PROAIR HFA INHALATION) Inhale as instructed. sulfaSALAzine (SULFAZINE) 500 mg tablet Take 500 mg by mouth three times daily. magnesium oxide 400 mg cap Take 1 capsule by mouth once daily. omeprazole (PRILOSEC) 20 mg capsule Take 1 capsule by mouth once daily. senna (SENEXON) 8.6 mg Tab Take 1 tablet by mouth twice daily. sertraline (ZOLOFT) 100 mg tablet Take 100 mg by mouth once daily. 1 in the am and 1/2 in the pm nitroglycerin(NITROQUICK 0.4 MG SUBLINGUAL TAB) Take one tablet sublingually for chest pain. If no relief, call 911. zolpidem (AMBIEN) 10 mg ORAL Tab Take one(1) tablet daily at bedtime. lorazepam (ATIVAN) 0.5 mg ORAL Tab Take one(1) tablet two(2) times daily. prn PHYSICAL EXAMINATION: VITAL SIGNS: BP 98/66 Pulse 80 Wt 440 lb 6.4 oz (199.8kg) Chest: Clear to percussion and auscultation. Trachea is midline. Air entry is equal. Cardiac: Regular rhythm. S1 and S2 are normal. PMI is nondisplaced. There is a soft systolic ejection murmur. Carotids are brisk without bruits. JVP is less than 10 cm. Abdomen: Obesity and large pannus preclude examination. There are no pulsatile masses or bruits. No liver enlargement. Bowel sounds are active. Extremities: 1 plus edema. Pulses are intact and symmetrical. Recent labs were reviewed. Renal function is normal. TSH was normal. Electronically Signed: Deepa Donnelly MD November 16, 2017 3:15 PM CC: MD Deepa Colon Chi, MD 11/16/2017 3:15 PM Signed LIFESTYLE CHANGE A healthy lifestyle is the most important component of your overall treatment plan. Please give serious thought to the following areas and commit to making care home changes. EAT A WHOLE FOOD, PLANT BASED DIET The nutrition your body gets is more important than the medicine you take. What matters most is the overall way you eat. We encourage you to minimize the use of animal products (which include dairy and all meats except fatty fish) and use whole, unprocessed plant foods to provide your protein, vitamins and other nutrients. We have a lot of information to share with you on this topic. This is not a diet. It is a way of life that you will keep with you. EXERCISE REGULARLY It is not important to spend hours in the gym, lifting weights and perspiring heavily. A total of 2-3 hours per week of aerobic (causing you to be moderately short of breath) exercise is sufficient to improve your health. Talk to us before you begin a new exercise program, if you have heart disease or experience shortness of breath or chest pain. REDUCE STRESS Chronic emotional and physical stress leads to disease. Ways of reducing stress include meditation, visualization, prayer, yoga and other forms of relaxation therapy. Consistency is the levy. Find a technique that works for you and do it every day. CULTIVATE RELATIONSHIPS Loneliness and isolation have a major negative impact on health. Seek out others who can love, care for and nurture you. Avoid hurtful relationships. MAINTAIN IDEAL BODY WEIGHT The best way to do this is to do all the things above. Our bodies naturally find the right weight if we keep moving and feed ourselves the right food. If your BMI is greater than 25, we strongly recommend a referral to a weight management program. Please speak to us or your family physician about available programs. AVOID NICOTINE IN ALL FORMS This includes all tobacco products, whether chewed, smoked, vaped, or rubbed on the skin. Smoking cessation programs, which can make use of tobacco substitutes, medications to suppress cravings and behavior management, are available. Please contact your family physician about programs in your area. Referring Provider: DEEPA DONNELLY [[id number]] Allergies As of Date: 11/16/2017 Noted Allergy Reaction COUMADIN (WARFARIN SODIUM) 12/13/2011 14 - Other: See Comments Comments: oversensitive. GI Bleed LATEX 01/31/2005 14 - Other: See Comments Comments: skin breakdown- no resp difficulty Date Reviewed: 11/16/2017 Reviewed by: Mary (Carbider) Lamberto - Fully Assessed Reason for Visit: Recheck [92] Primary Visit Diagnosis:Cardiomyopathy, nonischemic (HCC) [I42.8] Other Visit Diagnosis:Atrial fibrillation, chronic (HCC) [I48.2] Order(s):losartan (COZAAR) 50 mg tabletTake 0.5 tablets by mouth once daily.Disp: Rfl: TSH B/O [[id number]] Order #: [id number] ALT/SGPT [SQALT] Order #: [id number] FUTURE Prescriptions as of 11/16/2017 Sig: MELOXICAM 15 MG TABLET Take 15 mg by mouth once xenia* LOSARTAN 50 MG TABLET Take 0.5 tablets by mouth onc* AMIODARONE 200 MG TABLET TAKE 2 TABLETS (400MG) BY CLAIRE* SPIRONOLACTONE 25 MG TABLET Take 2 tablets by mouth twice* BUPROPION HCL 100 MG TABLET Take 100 mg by mouth once john* DOCUSATE SODIUM 100 MG TABLET Take by mouth. FLUTICASONE FUROATE 100 MCG/A* Inhale as instructed. FUROSEMIDE 40 MG TABLET Take 2 tablets by mouth twice* CICLOPIROX 8 % TOPICAL SOLUTI* Apply 1 application to affect* CYANOCOBALAMIN (VIT B-12) 1,0* Take 1 tablet by mouth once d* CARVEDILOL 12.5 MG TABLET Take 1.5 tablets by mouth twi* ACETAMINOPHEN 325 MG TABLET Take 1 tablet by mouth every * OXYCODONE 5 MG TABLET Take 1-2 tablets by mouth rolo* Patient taking differently: Take 10 mg by mouth every 4 h* ASPIRIN 81 MG TABLET,DELAYED * Take 81 mg by mouth once xenia* CICLOPIROX 8 % TOPICAL SOLUTI* Apply 1 application to affect* MULTI VITAMIN ORAL Take by mouth. PROAIR HFA INHALATION Inhale as instructed. SULFASALAZINE 500 MG TABLET Take 500 mg by mouth three ti* MAGNESIUM OXIDE 400 MG CAPSULE Take 1 capsule by mouth once * OMEPRAZOLE 20 MG CAPSULE,RAMY* Take 1 capsule by mouth once * SENNOSIDES 8.6 MG TABLET Take 1 tablet by mouth twice * SERTRALINE 100 MG TABLET Take 100 mg by mouth once john* * NITROQUICK 0.4 MG SUBLINGUAL * Take one tablet sublingually * * AMBIEN 10 MG TABLET Take one(1) tablet daily at b* * ATIVAN 0.5 MG TABLET Take one(1) tablet two(2) lisa* Problem List As Of Date 11/16/2017 Noted Resolved GYNECOMASTIA [N62] INVALID FOR* EDEMA [R60.9] INVALID FOR* Lymphedema [I89.0] Sleep apnea [G47.30] More... Cardiomyopathy, nonischemic [I42.8] INVALID FOR* Priority: E More... Impaired fasting glucose [R73.01] INVALID FOR* Obesity, morbid [E66.01] INVALID FOR* More... Protein C deficiency [D68.59] INVALID FOR* More... 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 Chronic pain [G89.29] INVALID FOR* More... Paroxysmal VT [I47.2] INVALID FOR* Priority: B More... Acute combined systolic and diastolic heart khari*INVALID FOR* Priority: C More... A-fib [I48.91] INVALID FOR* Priority: D More... Hyponatremia [E87.1] INVALID FOR* More... Dual implantable cardioverter-defibrillator in *INVALID FOR*08/20/2014 More... Physical deconditioning [R53.81] INVALID FOR* More... Panniculitis [M79.3] INVALID FOR* Umbilical hernia without mention of obstruction*INVALID FOR* S/P ICD (internal cardiac defibrillator) proced*INVALID FOR* SVT (supraventricular tachycardia) (HCC) [I47.1]INVALID FOR* UTI (lower urinary tract infection) [N39.0] INVALID FOR* BPH (benign prostatic hyperplasia) [N40.0] INVALID FOR* Morbid obesity (HCC) [E66.01] INVALID FOR* Adult BMI >=70 kg/sq m (HCC) [Z68.45] INVALID FOR* Ventral hernia [K43.9] INVALID FOR* PVD (peripheral vascular disease) (HCC) [I73.9] INVALID FOR* Weight disorder [R63.8] INVALID FOR* Other instructions from your clinician: LIFESTYLE CHANGE A healthy lifestyle is the most important component of your overall treatment plan. Please give serious thought to the following areas and commit to making care home changes. EAT A WHOLE FOOD, PLANT BASED DIET The nutrition your body gets is more important than the medicine you take. What matters most is the overall way you eat. We encourage you to minimize the use of animal products (which include dairy and all meats except fatty fish) and use whole, unprocessed plant foods to provide your protein, vitamins and other nutrients. We have a lot of information to share with you on this topic. This is not a diet. It is a way of life that you will keep with you. EXERCISE REGULARLY It is not important to spend hours in the gym, lifting weights and perspiring heavily. A total of 2-3 hours per week of aerobic (causing you to be moderately short of breath) exercise is sufficient to improve your health. Talk to us before you begin a new exercise program, if you have heart disease or experience shortness of breath or chest pain. REDUCE STRESS Chronic emotional and physical stress leads to disease. Ways of reducing stress include meditation, visualization, prayer, yoga and other forms of relaxation therapy. Consistency is the levy. Find a technique that works for you and do it every day. CULTIVATE RELATIONSHIPS Loneliness and isolation have a major negative impact on health. Seek out others who can love, care for and nurture you. Avoid hurtful relationships. MAINTAIN IDEAL BODY WEIGHT The best way to do this is to do all the things above. Our bodies naturally find the right weight if we keep moving and feed ourselves the right food. If your BMI is greater than 25, we strongly recommend a referral to a weight management program. Please speak to us or your family physician about available programs. AVOID NICOTINE IN ALL FORMS This includes all tobacco products, whether chewed, smoked, vaped, or rubbed on the skin. Smoking cessation programs, which can make use of tobacco substitutes, medications to suppress cravings and behavior management, are available. Please contact your family physician about programs in your area. Prescriptions ordered this encounter Disp Refills Start End LOSARTAN 50 MG TABLET 11/16/2017 Class: Med Update Route: ORAL Sig: Take 0.5 tablets by mouth once daily. Medications Discontinued During This Encounter losartan (COZAAR) 50 mg tablet 11/16/2017 Class: Historical Med Route: ORAL Sig: Take 50 mg by mouth once daily. Disc: Reason for discontinue is not on file. Follow-up and Disposition History Recorded Encounter Status:Closed by DEEPA DONNELLY MD on 11/16/17 OBSOLETE Observed: 10/01/2017 Status: COMPLETED Source: [place] 2:00 PM CLINIC OTHER CAMPUS REPOSITORY Procedure (AKEPD) LILIANA VILLARREAL ([id number]) 1960 M Date Time Provider Department 10/01/17 2:00 PM [facility]KE[facility] During your visit today, we recorded the following information about you: Referring Provider: JACSKON FARLEY [[id number]] Allergies As of Date: 10/01/2017 Noted Allergy Reaction COUMADIN (WARFARIN SODIUM) 12/13/2011 14 - Other: See Comments Comments: oversensitive. GI Bleed LATEX 01/31/2005 14 - Other: See Comments Comments: skin breakdown- no resp difficulty Date Reviewed: 05/11/2017 Reviewed by: Edvin King - Fully Assessed Reason for Visit: ICD [3662] Visit Diagnosis:Cardiomyopathy, nonischemic (HCC) [I42.8] Prescriptions as of 10/01/2017 Sig: SPIRONOLACTONE 25 MG TABLET Take 2 tablets by mouth twice* BUPROPION HCL 100 MG TABLET Take 100 mg by mouth once john* DOCUSATE SODIUM 100 MG TABLET Take by mouth. LOSARTAN 50 MG TABLET Take 50 mg by mouth once xenia* FLUTICASONE FUROATE 100 MCG/A* Inhale as instructed. FUROSEMIDE 40 MG TABLET Take 2 tablets by mouth twice* AMIODARONE 200 MG TABLET TAKE 2 TABLETS (400MG) BY CLAIRE* CICLOPIROX 8 % TOPICAL SOLUTI* Apply 1 application to affect* CYANOCOBALAMIN (VIT B-12) 1,0* Take 1 tablet by mouth once d* CARVEDILOL 12.5 MG TABLET Take 1.5 tablets by mouth twi* ACETAMINOPHEN 325 MG TABLET Take 1 tablet by mouth every * OXYCODONE 5 MG TABLET Take 1-2 tablets by mouth rolo* Patient taking differently: Take 10 mg by mouth every 4 h* ASPIRIN 81 MG TABLET,DELAYED * Take 81 mg by mouth once xenia* CICLOPIROX 8 % TOPICAL SOLUTI* Apply 1 application to affect* MULTI VITAMIN ORAL Take by mouth. PROAIR HFA INHALATION Inhale as instructed. SULFASALAZINE 500 MG TABLET Take 500 mg by mouth three ti* MAGNESIUM OXIDE 400 MG CAPSULE Take 1 capsule by mouth once * OMEPRAZOLE 20 MG CAPSULE,RAMY* Take 1 capsule by mouth once * SENNOSIDES 8.6 MG TABLET Take 1 tablet by mouth twice * SERTRALINE 100 MG TABLET Take 100 mg by mouth once john* * NITROQUICK 0.4 MG SUBLINGUAL * Take one tablet sublingually * * AMBIEN 10 MG TABLET Take one(1) tablet daily at b* * ATIVAN 0.5 MG TABLET Take one(1) tablet two(2) lisa* Problem List As Of Date 10/01/2017 Noted Resolved GYNECOMASTIA [N62] INVALID FOR* EDEMA [R60.9] INVALID FOR* Lymphedema [I89.0] Sleep apnea [G47.30] More... Cardiomyopathy, nonischemic [I42.8] INVALID FOR* Priority: E More... Impaired fasting glucose [R73.01] INVALID FOR* Obesity, morbid [E66.01] INVALID FOR* More... Protein C deficiency [D68.59] INVALID FOR* More... 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 Chronic pain [G89.29] INVALID FOR* More... Paroxysmal VT [I47.2] INVALID FOR* Priority: B More... Acute combined systolic and diastolic heart khari*INVALID FOR* Priority: C More... A-fib [I48.91] INVALID FOR* Priority: D More... Hyponatremia [E87.1] INVALID FOR* More... Dual implantable cardioverter-defibrillator in *INVALID FOR*08/20/2014 More... Physical deconditioning [R53.81] INVALID FOR* More... Panniculitis [M79.3] INVALID FOR* Umbilical hernia without mention of obstruction*INVALID FOR* S/P ICD (internal cardiac defibrillator) proced*INVALID FOR* SVT (supraventricular tachycardia) ([facility]) [I47.1]INVALID FOR* UTI (lower urinary tract infection) [N39.0] INVALID FOR* BPH (benign prostatic hyperplasia) [N40.0] INVALID FOR* Morbid obesity ([facility]) [E66.01] INVALID FOR* Adult BMI >=70 kg/sq m ([facility]) [Z68.45] INVALID FOR* Ventral hernia [K43.9] INVALID FOR* PVD (peripheral vascular disease) ([facility]) [I73.9] INVALID FOR* Weight disorder [R63.8] INVALID FOR* Encounter Status:Closed by RAH SANTOYO on 10/01/17 CT SHOULDER W IVCON Observed: 09/28/2017 Status: F Source: [facility] 3:11 PM CLINIC OTHER CAMPUS REPOSITORY * * *Final Report* * * DATE OF EXAM: Sep 28 2017 3:11PM [facility] [place] 0028 - CT SHOULDER W IVCON LT / PROCEDURE REASON: strain, muscle tendon,, rotator cuff, head of biceop osteoarthritis * * * * Physician Interpretation * * * * CT ARTHROGRAM OF THE LEFT SHOULDER HISTORY: Strain, muscle tendon, rotator cuff pathology. COMPARISON: None TECHNIQUE: CT Radiation dose: Integrated Dose-length product (DLP) for this visit = 554 mGy*cm. CT Dose Reduction Employed: Automated exposure control (AEC) RESULT: Supraspinatus: Complete tear with retraction to the glenoid. Infraspinatus: Intact. Teres minor: Intact. Subscapularis: High-grade tear. Rotator cuff muscles: Marked atrophy of the supraspinatus muscle. Mild atrophy of the infraspinatus and subscapularis muscles. Biceps Tendon: The biceps tendon is not seen in the bicipital groove. The proximal extra-articular tendon is noted at the level of the proximal humerus. Articular cartilage of glenohumeral joint: High-grade cartilage defects in the humeral head with sclerosis. AC joint: Advanced degenerative changes. Bone: No fracture. IMPRESSION: COMPLETE TEAR OF THE SUPRASPINATUS TENDON WITH RETRACTION. HIGH-GRADE TEAR OF THE SUBSCAPULARIS TENDON. MARKED ATROPHY OF THE SUPRASPINATUS MUSCLE. LONG HEAD BICEPS TENDON TEAR WITH RETRACTION TO THE PROXIMAL HUMERUS. ADDITIONAL FINDINGS DETAILED IN THE REPORT. Director News: AJ Transcribe Date/Time: Oct 01 2017 8:27A Dictated by : NEGRITO PAULSON MD This examination was interpreted and the report reviewed and electronically signed by: NEGRITO PAULSON MD on Oct 01 2017 8:59AM EST [id number] XR INJ ARTHROGRAM Observed: 09/28/2017 Status: F Source: [facility] 3:02 PM CLINIC OTHER CAMPUS REPOSITORY * * *Final Report* * * DATE OF EXAM: Sep 28 2017 3:02PM MDX 0070 - XR INJ ARTHROGRAM SHOULDER LT / PROCEDURE REASON: strain, muscle tendon,, rotator cuff, head of biceop osteoarthritis * * * * Physician Interpretation * * * * HISTORY: Rotator cuff and tendinous abnormality of the left shoulder TECHNIQUE: Pre-procedure Sign-in: Safety Checklist Performed: Yes. The team confirmed the correct patient, correct site, site marking, correct procedure, and correct position. Timeout Time: 1400 Sign-out: Communication performed: Yes. 5 mL 1% lidocaine was injected for local anesthesia. Fluoroscopic Radiation Summary: Plane A, Air Kerma: 22.0 mGy Dose Area Product (DAP): 3795.0 mGy*cmS2 Fluoro time: 1:14 min:sec COMPARISON: None RESULT: 20-gauge spinal needle tip was placed into the synovial space of the left shoulder under guidance of fluoroscopy. Synovial needle tip position was verified by injection of a small amount of Omnipaque 240 contrast material. Further injection of a total of 10 mL of Omnipaque [address] arthrogram procedure was performed and recorded on permanent radiographs. IMPRESSION: Fluoroscopically guided left shoulder injection as detailed Director News: AJ Transcribe Date/Time: Sep 28 2017 3:41P Dictated by : MARTHA PIERRE MD This examination was interpreted and the report reviewed and electronically signed by: MARTHA PIERRE MD on Sep 28 2017 3:45PM EST [id number] RE-EVALUATION - PT (1) Observed: 09/21/2017 Status: F Source: [place] 2:18 PM [facility] REPOSITORY [facility] [address] [place] [address] Fax REEVALUATION / MEDICARE RECERTIFICATION PHYSICAL THERAPY MR#: [id number] Acct: [id number] Name: LILIANA VILLARREAL Rep #: [id number] : 1960 57 From: Kimberly Valdez MPT Referring Dr.: Ray Patten MD Status: REG RCR Insurance: [facility] [place] [facility] *IN NETWORK SELF PAY INSURANCE Ray Patten MD, It has been my pleasure to treat LILIANA VILLARREAL over the last 10 visits for L shld strain/impingement syndrome/OA. Please see the progress note below for an update on the physical therapy plan of care! Subjective: Sunday the 6th injection of the shoulder and CAT SCAN of the L shoulder due to defilbulator. Dr will see him when the CAT SCAN results are in. He takes a muscle relaxor at night and that is the only way he can sleep. He is on O2 and SOB today due to humidity Objective/Function: Pt SOB walking back to treatment rooms due to humidity. L [place] AROM: ER 45 degrees, flexion 100 degrees, abd 110 degrees, IR L4. L shoulder MMT: flexion 3-/5, abd 3-/5, ER 3-5, IR 4+/5, bicep 4/5. Palpation: tender to palpation along the bicep tendon. + empty can for crunching and pain and weakness. PROM of the L shoulder is greater than AROM of the L shoulder and pt had some increase pain when coming to neutral position from PROM elevation. Plan Plan: Hold chart until after Cat Scan. Pt will call in with results and further instruction from MD. Goals Goal 1:: I HEP Goal 2:: Decrease pain to 1/10 with ADL's Goal Progress: Not Progressing Goal 3:: Increase L shoulder AROM and be able to use the L UE better with ADL's Goal Progress: Not Progressing Anticipated Interventions Patient/Client Instruction: Educate patient on: Condition, Plan of Care For the Purpose of:: To decrease pain, To increase ROM, To improve nutrient delivery to tissue, To improve muscle performance and motor function, To improve ability to perform ADL's, To improve performance and independence with ADL's Therapeutic Exercise to Include: Strength training, Postural training, Flexibilty training, Passive ROM, Active ROM, Scapular Strength/Stabilization For the Purpose of:: To decrease pain, To increase ROM, To improve nutrient delivery to tissue, To improve muscle performance and motor function, To improve ability to perform ADL's, To increase tolerance to activity/condition/position, To improve performance and independence with ADL's, To improve ability of physical actions for home/community/work/leisure Cryotherapy (ice pack, ice massage): Yes Thermo therapy (hot pack): Yes For the Purpose of:: To decrease pain, To increase ROM, To improve nutrient delivery to tissue Please do not hesitate to contact me at [phone] by phone or if you have questions or concerns regarding this new plan of care! Sincerely, Kimberly Valdez <Electronically signed by Kimberly Valdez MPT> 09/21/17 2500 CC: Ray Patten MD; Dwaine Benitez MD Signed For Medicare only, by signing this I certify the plan of care. Physicians Signature Date INITAL EVALUATION (1) Observed: 08/15/2017 Status: F Source: [place] - PT 7:13 PM [facility] REPOSITORY [facility] Physical Therapy [address] [place] [address] Fax REHABILITATION SERVICES INITIAL EVALUATION MR#: [id number] Acct: [id number] Name: LILIANA VILLARREAL Rep #: [id number] : 1960 57 From: Kimberly WINSLOW Referring Dr.: Ray Patten MD Status: REG RCR Insurance: [facility] *IN NETWORK SELF PAY INSURANCE Patient's Visit Information LILIANA VILLARREAL is a 57 year old M referred to Physical Therapy by Ray Patten MD with a diagnosis of L shld strain/impingement syndrome/OA. Date of Evaluation: 08/10/17 Physical Therapist: Kimberly Valdez - Visit Plan Frequency: 2x /Week Duration: 4 Weeks Plan: +++Latex Allergy++++ please use latex free bands only. Pt wants the lump on the top of his shoulder addressed by the Dr. We can Start with stregthening of the RC, scapular and postural exercises with ice and heat PRN. We may start modalities once pt lump is addressed and cleared by MD to do so. - Subjective Subjective: Pt has CHF and walking back to the treatment rooms was a hike for the pt with some SOB. Pt took about 5 min to recover breathing. Pt did get a cortizone shot and did not help and it is now waking him up at night. When pt fell in Nov he flared it back up and the shots dont help anymore. Pt reports that his arms are getting numb now. Pt has increase shoulder pain above shouder level and sometimes it is even difficult to write. He does jewlry for a hobby and it is painful after awhile. He has shoulder pain but no neck pain. Pt had the shoulder pain once beofre and then he fell Feb 11 and his shoulder was the impact point and now it is killing him. July 1st injection of the shoulder and that it did nothing and they have not tried a second injection. He has had x-rays but not sure what they say. Pt started taking meloxicam 1X/ day and it seems to help a little bit. Pt sleeps on his L side and has tried to lay other positions and cant get comfortable. Pt reports that he has a mass on the top of his L shoulder that the Dr did not address - Pain L shoulder pain Pain Intensity (Out of 10): 5 Pain Intensity Range: 10 - Objective Gait: walks with a wide front wheeled walker with forearms on the walker. Pt is L handed: L shoulder AROM (sitting in a chair) :flexion 112 degrees and abduction 121 degrees. ER 59 degrees and IR to PSIS. R shoulder AROM (sitting in a chair): R [id number] degrees and R abd 165 degrees, and ER 59 degrees and IR to T12. L UE MMT: IR 4+/5, Er 3-/5, flex and abd 3-/5. R UE MMT: Ir 4+/5, ER 3-/5 flex and abd 3-/5. Palpation: Top of L shoulder a palpable mass is felt on the L posterior medial to the AC joint. Tender under the L acrominon. + HK test on the L. + Empty can test for pain and weakness and audible popping - Goals Goal 1:: I HEP - Rehabilitation Potential Rehabilitation Potential: Good - Anticipated Interventions Patient/Client Instruction: Educate patient on: Condition, Plan of Care For the Purpose of:: To decrease pain, To increase ROM, To improve nutrient delivery to tissue, To improve muscle performance and motor function, To improve ability to perform ADL's, To improve performance and independence with ADL's Therapeutic Exercise to Include: Strength training, Postural training, Flexibilty training, Passive ROM, Active ROM, Scapular Strength/Stabilization For the Purpose of:: To decrease pain, To increase ROM, To improve nutrient delivery to tissue, To improve muscle performance and motor function, To improve ability to perform ADL's, To increase tolerance to activity/condition/position, To improve performance and independence with ADL's, To improve ability of physical actions for home/community/work/leisure Cryotherapy (ice pack, ice massage): Yes Thermo therapy (hot pack): Yes For the Purpose of:: To decrease pain, To increase ROM, To improve nutrient delivery to tissue Thank you for the opportunity to evaluate your patient. For Medicare and Medicare HMO plans, please review the plan of care and approve it. It will need to be FAXED BACK to us at [phone] for Medicare purposes. Please let me know if there are questions or concerns regarding this plan of care. Physician Signature: Date: <Electronically signed by Kimberly Valdez MPT> 08/15/17 1913 CC: Ray Patten MD; Dwaine Benitez MD Signed For Medicare only, by signing this I certify the plan of care. Physicians Signature Date BASIC METABOLIC Collected: 07/09/2017 Status: F Source: [place] PROFILE (BMP) 3:38 PM [facility] REPOSITORY TYPE CODE TESTS RESULT OUT OF RANGE REFERENCE UNITS LAB L501.0100 74-106 mg/dL Normal GLU 105 Result Comment: Fasting Glucose result from 100 to 125 mg/dL suggests IMPAIRED HOMEOSTASIS per A.D.A. criteria. Please note revised GLUCOSE reference range effective 2017. LAB L501.1000 7-18 mg/dL High BUN 27 LAB L501.1100 0.70-1.30 mg/dL Normal CREAT,SERUM 1.13 Result Comment: The validity of the calculated GFR AND GFRAA in patients over 70 years has not been determined. Clinical correlation is essential. LAB L501.1110 >60 mL/min Normal EST GFR 71 Result Comment: Non- GFR Calc LAB L501.1115 >60 mL/min Normal EST GFR - AA 86 Result Comment: GFR Calc LAB L501.1300 10-20 RATIO High BUN/CRE 23.9 LAB L501.2200 8.5-10.1 mg/dL CA Normal 8.7 LAB L501.5300 136-145 mmol/L NA Normal 139 LAB L501.5600 3.5-5.1 mmol/L K Normal 4.2 Result Comment: Slight Hemolysis, Result may be falsely increased. LAB L501.5900 98-107 mmol/L Normal CL 104 LAB L501.6100 21.0-32.0 mmol/L Normal CO2 29.0 LAB L501.6200 5-15 Normal 6 GAP Performed By: #### L500.2500 #### [facility] [address] [place], [place], [address] BNP,B-TYPE NATRIURETIC Collected: 07/09/2017 Status: F Source: [place] 3:38 PM [facility] REPOSITORY TYPE CODE TESTS RESULT OUT OF RANGE REFERENCE UNITS LAB L503.6620 0-100 pg/mL High B-TYPE 520.8 KOFI PEP Performed By: #### L503.6620 #### [facility] [address] [place], [address] CBC W/DIFF, AUTOMATED Collected: 07/09/2017 Status: F Source: [place] 3:38 PM [facility] REPOSITORY TYPE CODE TESTS RESULT OUT OF RANGE REFERENCE UNITS LAB L100.1000 4.4-11.0 K/mm3 Normal WBC 8.5 LAB L100.1200 4.6-6.2 M/mm3 Low RBC 4.37 LAB L100.1300 13.0-16.5 g/dl Normal HGB 14.2 LAB L100.1400 40-54 % Normal HCT 44.1 LAB L100.1500 80-94 fL High MCV 100.9 LAB L100.1600 27.0-32.0 pg High MCH 32.5 LAB L100.1700 32-36 g/gl Normal MCHC 32.2 LAB L100.1810 11.6-14.6 % High RDW CV 19.5 LAB L100.1820 35.1-43.9 fl High RDW SD 71.1 LAB L100.1900 150-450 K/mm3 Normal PLT 181 LAB L100.2000 6.2-12.0 fl Normal MPV 11.0 LAB L100.2100 47-70 % High NEUT% 77.1 LAB L100.2200 19-41 % Low LY% 12.0 LAB L100.2300 0-10 % Normal MONO% 9.9 LAB L100.2400 0-5 % Normal EO% 0.6 LAB L100.2500 0-1 % Normal BASO% 0.2 LAB L100.2550 0.0-0.9 % Normal IM GRAN % 0.200 Result Comment: IG% - Immature Granulocytes (promyelocytes, myelocytes and metamyelocytes) > 1% indicates that a LEFT SHIFT is Present. LAB L100.2620 2.0-7.7 X10 3/uL Absolute Neut Normal 6.5 LAB L100.2720 0.83-4.51 X10 3/ul Absolute Lymph Normal 1.02 LAB L100.7300 ANISO Normal 1+ LAB L100.7500 POLYCHROMASIA Normal RARE LAB L100.7800 MACROCYTE Normal 1+ Performed By: #### L100.0100 #### [facility] [address] [place], [address] ECHOCARDIOGRAM COMPLETE Observed: 06/20/2017 Status: F Source: [place] 2:05 PM [facility] REPOSITORY [facility] Cardiovascular Services [address] [place] [address] Echo Complete 06/20/17 1100 MR#: [id number] Acct: [id number] Name: LILIANA VILLARREAL Rep #: [id number] : 1960 57 From: Zaid Steel MD Attending Dr: Eli KINNEY,Dwaine Mann Status: REG CLI Ordering Dr: Dwaine Benitez MD Date: 06/20/17 Location: [facility] Sex: M C Admitted: Reason For Study: SOB Procedure This was a 2D Doppler, Color Flow transthoracic echocardiogram. The study was technically difficult. The study was technically limited. The exam was of poor technical quality due to patient body habitus. Exam performed in department. Left Ventricle Normal LV size. The estimated ejection fraction is 30 %. Moderately severe global left ventricular systolic dysfunction. There is moderate to severe global hypokinesis of the left ventricle. Right Ventricle Normal RV size. ICD or pacer leads identified within the right ventricle. Mild global right ventricular systolic dysfunction. Atria Normal left atrium. Normal right atrium. Mitral Valve Normal mitral valve. Tricuspid Valve Normal tricuspid valve. Mild (1+) tricuspid valve insufficiency. Pulmonary artery systolic pressure is 33 mmHg. Aortic Valve The aortic valve is not well visualized. Great Vessels Mildly dilated aortic root. The pulmonary artery is normal size. Pericardium/Pleural No pericardial effusion. MMode/2D Measurements AND Calculations LVIDd: 5.7 cm IVSd: 1.3 cm Ao root diam: 3.9 cm LVIDs: 4.6 cm LVPWd: 1.1 cm LA dimension: 5.9 cm RVDd: 5.8 cm FS: 19.2 % Doppler Measurements AND Calculations MV E max christos: 128.1 cm/sec Ao V2 max: 108.2 cm/sec LV V1 max: 76.0 cm/sec Ao max P.7 mmHg LV V1 max P.3 mmHg Ao V2 mean: 80.0 cm/sec Ao mean P.7 mmHg Ao V2 VTI: 18.5 cm PA V2 max: 66.8 cm/sec TR max christos: 258.1 cm/sec TR max P.6 mmHg Interpretation Summary Normal LV size. The estimated ejection fraction is 30 %. Moderately severe global left ventricular systolic dysfunction. Mild (1+) tricuspid valve insufficiency. Pulmonary artery systolic pressure is 33 mmHg. Ordering Physician: Dwaine Benitez Chi Referring Physician: Dwaine Benitez Chi Performed By: Siobhan Avery, ESPERANZA, RVT 06/20/17 1405 Date Zaid Steel MD CC: Dwaine Benitez MD Date Dictated: 06/20/17 1100 Date Transcribed: 06/20/17 140 Director News: Signed LUMBAR SPINE 2 OR 3 Observed: 05/16/2017 Status: F Source: [place] VIEWS 10:32 AM [facility] REPOSITORY [facility] Imaging Services [address] [place] [address] Lumbar Spine 2 or 3 Views MR#: [id number] Acct: [id number] Name: LILIANA VILLARREAL Rep #: [id number] : 1960 M 57 From: Ritesh Rodriguez MD PCP: Dwaine Benitez MD, Chi Status: REG CLI Study: Lumbar Spine 2 or 3 Views Date of Exam: 05/16/17 Exam# [id number] Ordering Dr: Dwaine Benitez MD STUDY: X-RAY - LUMBAR SPINE REASON FOR EXAM: Male, 57 years old. Pain. TECHNIQUE: Only a single frontal view(s) of the lumbar spine were obtained due to the patient's pain. COMPARISON: None FINDINGS: This extremely limited study shows diffuse lumbar spondylosis. There is mild SI joint arthrosis. The visualized soft tissue structures are unremarkable. RAD/Lumbar Spine 2 or 3 Views IMPRESSION: Extremely limited lumbar spine study as described. Electronically Signed: Ritesh Rodriguez MD at 18:28 EST , Service support , CC: Dwaine Benitez MD Director News: Signed SHOULDER MIN 2 VIEWS Observed: 05/16/2017 Status: F Source: [place] 10:32 AM [facility] REPOSITORY [facility] Imaging Services [address] [place] [address] Shoulder min 2 Views MR#: [id number] Acct: [id number] Name: LILIANA VILLARREAL Rep #: [id number] : 1960 M 57 From: Ritesh Rodriguez MD PCP: Dwaine Benitez MD, Chi Status: REG CLI Study: Shoulder min 2 Views Date of Exam: 05/16/17 Exam# [id number] Ordering Dr: Dwiane Benitez MD STUDY: X-RAY - LEFT SHOULDER REASON FOR EXAM: Male, 57 years old. Injury. Pain. TECHNIQUE: 5 view(s) of the shoulder. COMPARISON: None. FINDINGS: Normal glenohumeral articulation. 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 Normal acromion. Normal humeral head and visualized proximal humerus. The soft tissue structures are unremarkable. Normal visualized pulmonary apex. RAD/Shoulder min 2 Views IMPRESSION: Acromioclavicular joint arthrosis. No acute abnormality identified. Electronically Signed: Ritesh Rodriguez MD at 18:29 EST , Service support , CC: Dwaine Benitez MD Director News: Signed HIP 2-3 VIEWS WITH Observed: 05/16/2017 Status: F Source: [place] PELVIS 10:32 AM [facility] REPOSITORY [facility] Imaging Services [facility] [place] [address] Hip 2-3 Views with Pelvis MR#: [id number] Acct: [id number] Name: LILIANA VILLARREAL Rep #: [id number] : 1960 M 57 From: Ritesh Rodriguez MD PCP: Dwaine Benitez MD, Chi Status: REG CLI Study: Hip 2-3 Views with Pelvis Date of Exam: 05/16/17 Exam# [id number] Ordering Dr: Dwaine Benitez MD STUDY: X-RAY - PELVIS AND RIGHT HIP REASON FOR EXAM: Male, 57 years old. Fall. Pain. TECHNIQUE: Radiological exam, hip, unilateral, with pelvis when performed; 1 view. The films are underpenetrated due to the patient's obesity. COMPARISON: None. FINDINGS: There is a non-specific bowel gas pattern. Normal visualized soft tissue structures. Normal bilateral iliac wings, sacroiliac joints and visualized sacrum. Normal bilateral superior and inferior pubic rami. Normal pubic symphysis. Normal bilateral ischial tuberosities. Normal visualized femoral head. Normal acetabulum. Normal hip joint. RAD/Hip 2-3 Views with Pelvis IMPRESSION: No significant abnormality identified. 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 Cardiomyopathy - nonischemic, EF 40% 2014 Sustained VT - ICD 2011 ADHERENCE TO GUIDELINES RHYS-I or ARB for HF with prior LVEF<40 (NQF 0081) - met ASA or Plavix for ASHD (NQF 0067) - met Beta mayelin for ASHD with prior AL or prior LVEF<40 (NQF 0070) - met Beta mayelin for HF with prior LVEF<40 (NQF 0083) - met RHYS-I or ARB for ASHD with DM or prior LVEF<40 (NQF 0066) - met Statin therapy for ASHD or FHL or DM - N/A BMI documented and plan if >25 (NQF 0421) - lifestyle recommendation form Tobacco use screening and referral (NQF 0028) - lifestyle recommendation form Recommendation for whole food, plant based diet - lifestyle recommendation form CLINICAL IMPRESSION/PLAN: Liliana Villarreal is clinically stable. He has had intermittent atrial arrhythmias in the past. We cannot determine frequency or duration as this is a single lead device. His heart failure is better compensated since his Aldactone was increased. Labs will be rechecked today. He will be referred to [facility] for device check and EP follow-up. He's been encouraged to continue his Lasix twice daily if possible. He will be seeing Dr. Benitez for further evaluation of his low back pain subsequent to the fall. His atrial fibrillation has been intermittent. As it is asymptomatic, it would be very difficult to control. We will continue rate control for now. He will remain on amiodarone. He cannot take warfarin due to life-threatening bleeds in the past. I will see him in 6 months or as needed. Written and verbal health teaching given to patient, patient verbalizes understanding and agrees with treatment plan. This note was generated using [employer]-X voice recognition system, and there may be some incorrect words, spellings, and punctuation that were not noted in checking the note before saving. DIAGNOSIS FOR VISIT: Atrial fibrillation CHF HISTORY OF PRESENT ILLNESS Liliana Villarreal returns for follow-up of multiple cardiac issues, as noted above. He has been doing well from the cardiac standpoint. He has been having low back pain subsequent to a fall. He has cut down somewhat on his Lasix as he cannot make it to the bathroom in time. He denies chest discomfort. He's had no orthopnea. His edema has been slightly worse. He's had no syncope, TIAs, amaurosis. He's had rare palpitations. He's had no therapies from his device. ALLERGIES: ALLERGIES Allergen Reactions - Coumadin [Warfarin * Other: See Comments oversensitive. GI Bleed - Latex Other: See Comments skin breakdown- no resp difficulty CURRENT OUTPATIENT MEDICATIONS: spironolactone (ALDACTONE) 25 mg tablet Take 2 tablets by mouth twice daily. buPROPion (WELLBUTRIN) 100 mg tablet Take 100 mg by mouth once daily. Docusate Sodium 100 mg tab Take by mouth. losartan (COZAAR) 50 mg tablet Take 50 mg by mouth once daily. fluticasone furoate (ARNUITY ELLIPTA) 100 mcg/actuation dsdv Inhale as instructed. furosemide (LASIX) 40 mg tablet Take 2 tablets by mouth twice daily. 40 mg in the am and 40 mg in the pm amiodarone (PACERONE) 200 mg tablet TAKE 2 TABLETS (400MG) BY MOUTH EVERY MORNING cyanocobalamin (VITAMIN B-12) 1,000 mcg tab Take 1 tablet by mouth once daily. carvedilol (COREG) 12.5 mg tablet Take 1.5 tablets by mouth twice daily with meals. acetaminophen (TYLENOL) 325 mg tablet Take 1 tablet by mouth every 4 hours as needed. oxyCODONE immediate release (PERCOLONE) 5 mg immediate release tablet Take 1-2 tablets by mouth every 4 hours as needed. aspirin, enteric coated (ASPIRIN, ENTERIC COATED) 81 mg EC tablet Take 81 mg by mouth once daily. MULTIVIT ANDMINERALS/FERROUS FUM (MULTI VITAMIN ORAL) Take by mouth. ALBUTEROL SULFATE (PROAIR HFA INHALATION) Inhale as instructed. sulfaSALAzine (SULFAZINE) 500 mg tablet Take 500 mg by mouth three times daily. omeprazole (PRILOSEC) 20 mg capsule Take 1 capsule by mouth once daily. senna (SENEXON) 8.6 mg Tab Take 1 tablet by mouth twice daily. sertraline (ZOLOFT) 100 mg tablet Take 100 mg by mouth once daily. 1 in the am and 1/2 in the pm nitroglycerin(NITROQUICK 0.4 MG SUBLINGUAL TAB) Take one tablet sublingually for chest pain. If no relief, call 911. zolpidem (AMBIEN) 10 mg ORAL Tab Take one(1) tablet daily at bedtime. lorazepam (ATIVAN) 0.5 mg ORAL Tab Take one(1) tablet two(2) times daily. prn Ciclopirox (PENLAC) 8 % solution Apply 1 application to affected area twice daily. TO AFFECTED AREA. Ciclopirox (LOPROX) 8 % solution Apply 1 application to affected area daily at bedtime. magnesium oxide 400 mg cap Take 1 capsule by mouth once daily. PHYSICAL EXAMINATION: VITAL SIGNS: BP 120/80 Pulse 72 Ht 5' 5.5 (1.66m) Wt 451 lb 4.8 oz (204.7kg) BMI 73.93 kg/(m2). Chest: Clear to percussion and auscultation. Trachea is midline. Air entry is equal. Cardiac: Regular rhythm. S1 and S2 are normal. PMI is nondisplaced. There is a soft systolic ejection murmur. Carotids are brisk without bruits. JVP cannot be detected Abdomen: Obesity and large panus precludes examination. Bowel sounds are active. Extremities: 1 plus edema. Pulses are difficult to feel. There is no weeping or breakdown. EKG demonstrates atrial flutter with controlled response. There is right bundle branch block. Since previous study, the atrial flutter is new. It has been intermittent in the past. Recent device check is no depletion. There are no high rate ventricular detections. This is a single lead device. Recent echocardiogram shows no significant change. Electronically Signed: Deepa Donnelly MD May 11, 2017 3:08 PM CC: Dwaine Benitez MD COMP METABOLIC PANEL Collected: 05/11/2017 Status: F Source: [place] 2:34 PM [facility] REPOSITORY TYPE CODE TESTS RESULT OUT OF REFERENCE UNITS RANGE LAB TP 6.3-8.0 g/dL Protein, Total 6.9 LAB ALB 3.9-4.9 g/dL Albumin 3.9 LAB CA 8.5-10.2 mg/dL Calcium, Total 9.2 LAB TBIL 0.2-1.3 mg/dL Bilirubin, Total 0.6 LAB ALKP 36-108 U/L Alkaline Phosphatase 83 LAB AST 14-40 U/L AST 25 LAB GLU 74-99 mg/dL Glucose High 105 Result Comment: The [place] Diabetes Association (ADA) provides guidance for cutoff values for fasting glucose and random glucose. The ADA defines fasting as no caloric intake for at least 8 hours. Fas ting plasma glucose results between 100 to 125 mg/dL indicate increased risk for diabetes (prediabetes). Fasting plasma glucose results greater than or equal to 126 mg/dL meet the criteria for diagnosis of diabetes. In the absence of unequivocal hyperglycemia, results should be confirmed by repeat testing. In a patient with classic symptoms of hyperglycemia or hyperglycemic crisis, random plasma glucose results greater than or equal to 200 mg/dL meet the criteria for diagnosis of diabetes. Reference: Standards of Medical Care in Diabetes 2016, [place] Diabetes Association. Diabetes Care. 2016.39(Suppl 1). LAB BUN 9-24 mg/dL BUN 19 LAB CRET 0.73-1.22 mg/dL Creatinine 1.03 LAB NA 136-144 mmol/L Sodium 140 LAB K 3.7-5.1 mmol/L Potassium 4.6 LAB CL 97-105 mmol/L Chloride 97 LAB CO2 22-30 mmol/L CO2 30 LAB AGAP 9-18 mmol/L Anion Gap 13 LAB ALT 10-54 U/L ALT 15 LAB GFRAA eGFR- Amer. >60 LAB GFRNAA . eGFR-All Other Races >60 Result Comment: eGFR (Estimated GFR) Units of measure: mL/min/1.73 meters squared eGFR is derived from the reexpressed MDRD Study equation using the following parameters: serum creatinine, age, gender and race. The creatinine assay has been calibrated to be traceable to IDMS. An eGFR <60 mL/min/1.73m2 for >3 months is consistent with chronic kidney disease. Refer to KDOQI guidelines for clinical interpretation. In patients with unstable renal function, e.g. those with acute kidney injury, the eGFR may not accurately reflect actual GFR. Performed By: #### CMP, URIC #### [facility] [address] [id number] URIC ACID Collected: 05/11/2017 Status: F Source: [place] 2:34 PM [facility] REPOSITORY TYPE CODE TESTS RESULT OUT OF RANGE REFERENCE UNITS LAB URIC 4.0-8.1 mg/dL Uric Acid 7.4 Performed By: #### CMP, URIC #### [facility] [address], [place] [address] TSH Collected: 05/11/2017 Status: F Source: [place] 2:34 PM [facility] REPOSITORY TYPE CODE TESTS RESULT OUT OF RANGE REFERENCE UNITS LAB TSH 0.400-5.500 uU/mL TSH 2.950 Performed By: #### TSH #### [facility] [address] [address] CNOV Observed: 05/11/2017 Status: COMPLETED Source: [place] 2:30 PM [facility] REPOSITORY Office Visit (AGCARDWST) LILIANA VILLARREAL ([id number]) 1960 M Date Time Provider Department 05/11/17 2:30 PM DEEPA DONNELLY AGCFERNANDO During your visit today, we recorded the following information about you: Pulse Blood pressure Weight Height 72/minute 120/80 204.7 kg 1.664 m Deepa Donnelly MD 05/11/2017 4:54 PM Signed PERTINENT CARDIAC HISTORY CHF Atrial fib - no a/c due to recurrent bleeds SVT - ablation 2003 TEX - BiPAP HTN Recurrent bleeding on warfarin Multiple venous thrombosis - protein c deficiency Cardiomyopathy - nonischemic, EF 40% 2014 Sustained VT - ICD 2011 ADHERENCE TO GUIDELINES RHYS-I or ARB for HF with prior LVEFANDlt;40 (NQF 0081) - met ASA or Plavix for ASHD (NQF 0067) - met Beta mayelin for ASHD with prior AL or prior LVEFANDlt;40 (NQF 0070) - met Beta mayelin for HF with prior LVEFANDlt;40 (NQF 0083) - met RHYS-I or ARB for ASHD with DM or prior LVEFANDlt;40 (NQF 0066) - met Statin therapy for ASHD or FHL or DM - N/A BMI documented and plan if ANDgt;25 (NQF 0421) - lifestyle recommendation form Tobacco use screening and referral (NQF 0028) - lifestyle recommendation form Recommendation for whole food, plant based diet - lifestyle recommendation form CLINICAL IMPRESSION/PLAN: Liliana Villarreal is clinically stable. He has had intermittent atrial arrhythmias in the past. We cannot determine frequency or duration as this is a single lead device. His heart failure is better compensated since his Aldactone was increased. Labs will be rechecked today. He will be referred to [facility] for device check and EP follow-up. He's been encouraged to continue his Lasix twice daily if possible. He will be seeing Dr. Benitez for further evaluation of his low back pain subsequent to the fall. His atrial fibrillation has been intermittent. As it is asymptomatic, it would be very difficult to control. We will continue rate control for now. He will remain on amiodarone. He cannot take warfarin due to life- threatening bleeds in the past. I will see him in 6 months or as needed. Written and verbal health teaching given to patient, patient verbalizes understanding and agrees with treatment plan. This note was generated using [employer] voice recognition system, and there may be some incorrect words, spellings, and punctuation that were not noted in checking the note before saving. DIAGNOSIS FOR VISIT: Atrial fibrillation CHF HISTORY OF PRESENT ILLNESS Liliana Villarreal returns for follow-up of multiple cardiac issues, as noted above. He has been doing well from the cardiac standpoint. He has been having low back pain subsequent to a fall. He has cut down somewhat on his Lasix as he cannot make it to the bathroom in time. He denies chest discomfort. He's had no orthopnea. His edema has been slightly worse. He's had no syncope, TIAs, amaurosis. He's had rare palpitations. He's had no therapies from his device. ALLERGIES: ALLERGIES Allergen Reactions - Coumadin [Warfarin * Other: See Comments oversensitive. GI Bleed - Latex Other: See Comments skin breakdown- no resp difficulty CURRENT OUTPATIENT MEDICATIONS: spironolactone (ALDACTONE) 25 mg tablet Take 2 tablets by mouth twice daily. buPROPion (WELLBUTRIN) 100 mg tablet Take 100 mg by mouth once daily. Docusate Sodium 100 mg tab Take by mouth. losartan (COZAAR) 50 mg tablet Take 50 mg by mouth once daily. fluticasone furoate (ARNUITY ELLIPTA) 100 mcg/actuation dsdv Inhale as instructed. furosemide (LASIX) 40 mg tablet Take 2 tablets by mouth twice daily. 40 mg in the am and 40 mg in the pm amiodarone (PACERONE) 200 mg tablet TAKE 2 TABLETS (400MG) BY MOUTH EVERY MORNING cyanocobalamin (VITAMIN B-12) 1,000 mcg tab Take 1 tablet by mouth once daily. carvedilol (COREG) 12.5 mg tablet Take 1.5 tablets by mouth twice daily with meals. acetaminophen (TYLENOL) 325 mg tablet Take 1 tablet by mouth every 4 hours as needed. oxyCODONE immediate release (PERCOLONE) 5 mg immediate release tablet Take 1-2 tablets by mouth every 4 hours as needed. aspirin, enteric coated (ASPIRIN, ENTERIC COATED) 81 mg EC tablet Take 81 mg by mouth once daily. MULTIVIT ANDamp;MINERALS/FERROUS FUM (MULTI VITAMIN ORAL) Take by mouth. ALBUTEROL SULFATE (PROAIR HFA INHALATION) Inhale as instructed. sulfaSALAzine (SULFAZINE) 500 mg tablet Take 500 mg by mouth three times daily. omeprazole (PRILOSEC) 20 mg capsule Take 1 capsule by mouth once daily. senna (SENEXON) 8.6 mg Tab Take 1 tablet by mouth twice daily. sertraline (ZOLOFT) 100 mg tablet Take 100 mg by mouth once daily. 1 in the am and 1/2 in the pm nitroglycerin(NITROQUICK 0.4 MG SUBLINGUAL TAB) Take one tablet sublingually for chest pain. If no relief, call 911. zolpidem (AMBIEN) 10 mg ORAL Tab Take one(1) tablet daily at bedtime. lorazepam (ATIVAN) 0.5 mg ORAL Tab Take one(1) tablet two(2) times daily. prn Ciclopirox (PENLAC) 8 % solution Apply 1 application to affected area twice daily. TO AFFECTED AREA. Ciclopirox (LOPROX) 8 % solution Apply 1 application to affected area daily at bedtime. magnesium oxide 400 mg cap Take 1 capsule by mouth once daily. PHYSICAL EXAMINATION: VITAL SIGNS: BP 120/80 Pulse 72 Ht 5' 5.5ANDquot; (1.66m) Wt 451 lb 4.8 oz (204.7kg) BMI 73.93 kg/(m2). Chest: Clear to percussion and auscultation. Trachea is midline. Air entry is equal. Cardiac: Regular rhythm. S1 and S2 are normal. PMI is nondisplaced. There is a soft systolic ejection murmur. Carotids are brisk without bruits. JVP cannot be detected Abdomen: Obesity and large panus precludes examination. Bowel sounds are active. Extremities: 1 plus edema. Pulses are difficult to feel. There is no weeping or breakdown. EKG demonstrates atrial flutter with controlled response. There is right bundle branch block. Since previous study, the atrial flutter is new. It has been intermittent in the past. Recent device check is no depletion. There are no high rate ventricular detections. This is a single lead device. Recent echocardiogram shows no significant change. Electronically Signed: Deepa Donnelly MD May 11, 2017 3:08 PM CC: MD Deepa Colon Chi, MD 05/11/2017 3:08 PM Signed LIFESTYLE CHANGE A healthy lifestyle is the most important component of your overall treatment plan. 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 EAT A WHOLE FOOD, PLANT BASED DIET The nutrition your body gets is more important than the medicine you take. What matters most is the overall way you eat. We encourage you to minimize the use of animal products (which include dairy and all meats except fatty fish) and use whole, unprocessed plant foods to provide your protein, vitamins and other nutrients. We have a lot of information to share with you on this topic. We also hold Shared Medical Appointments, where you can come visit with Dr. Donnelly in the company of other patients and spend over an hour talking about the challenges of changing the way you eat. This is not a ANDquot;dietANDquot;. It is a way of life that you will keep with you. EXERCISE REGULARLY It is not important to spend hours in the gym, lifting weights and perspiring heavily. A total of 2-3 hours per week of aerobic (causing you to be moderately short of breath) exercise is sufficient to improve your health. Talk to us before you begin a new exercise program, if you have heart disease or experience shortness of breath or chest pain. REDUCE STRESS Chronic emotional and physical stress leads to disease. Ways of reducing stress include meditation, visualization, prayer, yoga and other forms of relaxation therapy. Consistency is the levy. Find a technique that works for you and do it every day. CULTIVATE RELATIONSHIPS Loneliness and isolation have a major negative impact on health. Seek out others who can love, care for and nurture you. Avoid hurtful relationships. MAINTAIN IDEAL BODY WEIGHT The best way to do this is to do all the things above. Our bodies naturally find the right weight if we keep moving and feed ourselves the right food. If your BMI is greater than 25, we strongly recommend a referral to a weight management program. Please speak to us or your family physician about available programs. AVOID NICOTINE IN ALL FORMS This includes all tobacco products, whether chewed, smoked, vaped, or rubbed on the skin. Smoking cessation programs, which can make use of tobacco substitutes, medications to suppress cravings and behavior management, are available. Please contact your family physician about programs in your area. Referring Provider: DWAINE BENITEZ CHI [[id number]] Allergies As of Date: 05/11/2017 Noted Allergy Reaction COUMADIN (WARFARIN SODIUM) 12/13/2011 14 - Other: See Comments Comments: oversensitive. GI Bleed LATEX 01/31/2005 14 - Other: See Comments Comments: skin breakdown- no resp difficulty Date Reviewed: 05/11/2017 Reviewed by: Edvin King - Fully Assessed Reason for Visit: Follow Up [171] Primary Visit Diagnosis:PAF (paroxysmal atrial fibrillation) ([facility]) [I48.0] Other Visit Diagnosis:Chronic combined systolic and diastolic congestive heart failure (HCC) [I50.42] Order(s):ECG B/O W INTERP (MED OFFICE) [ECG06] Order #: [id number] TSH BLD [SQTSH] Order #: [id number] FUTURE CONSULT TO DEVICE CLINIC (AG) [5591092] Order #: [id number]: 1 CONSULT TO ELECTROPHYSIOLOGY [0654835] Order #: [id number]: 1 Prescriptions as of 05/11/2017 Sig: SPIRONOLACTONE 25 MG TABLET Take 2 tablets by mouth twice* BUPROPION HCL 100 MG TABLET Take 100 mg by mouth once john* DOCUSATE SODIUM 100 MG TABLET Take by mouth. LOSARTAN 50 MG TABLET Take 50 mg by mouth once xenia* FLUTICASONE FUROATE 100 MCG/A* Inhale as instructed. FUROSEMIDE 40 MG TABLET Take 2 tablets by mouth twice* AMIODARONE 200 MG TABLET TAKE 2 TABLETS (400MG) BY CLAIRE* CYANOCOBALAMIN (VIT B-12) 1,0* Take 1 tablet by mouth once d* CARVEDILOL 12.5 MG TABLET Take 1.5 tablets by mouth twi* ACETAMINOPHEN 325 MG TABLET Take 1 tablet by mouth every * OXYCODONE 5 MG TABLET Take 1-2 tablets by mouth rolo* Patient taking differently: Take 10 mg by mouth every 4 h* ASPIRIN 81 MG TABLET,DELAYED * Take 81 mg by mouth once xenia* MULTI VITAMIN ORAL Take by mouth. PROAIR HFA INHALATION Inhale as instructed. SULFASALAZINE 500 MG TABLET Take 500 mg by mouth three ti* OMEPRAZOLE 20 MG CAPSULE,RAMY* Take 1 capsule by mouth once * SENNOSIDES 8.6 MG TABLET Take 1 tablet by mouth twice * SERTRALINE 100 MG TABLET Take 100 mg by mouth once john* * NITROQUICK 0.4 MG SUBLINGUAL * Take one tablet sublingually * * AMBIEN 10 MG TABLET Take one(1) tablet daily at b* * ATIVAN 0.5 MG TABLET Take one(1) tablet two(2) lisa* CICLOPIROX 8 % TOPICAL SOLUTI* Apply 1 application to affect* CICLOPIROX 8 % TOPICAL SOLUTI* Apply 1 application to affect* MAGNESIUM OXIDE 400 MG CAPSULE Take 1 capsule by mouth once * Medication notes this encounter MAGNESIUM OXIDE 400 MG CAPSULE >> Edvin King MA 05/11/2017 2:49 PM >> EDVIN KING MA May 11, 2017 2:49 PM Not taking Problem List As Of Date 05/11/2017 Noted Resolved GYNECOMASTIA [N62] INVALID FOR* EDEMA [R60.9] INVALID FOR* Lymphedema [I89.0] Sleep apnea [G47.30] More... Cardiomyopathy, nonischemic [I42.8] INVALID FOR* Priority: E More... Impaired fasting glucose [R73.01] INVALID FOR* Obesity, morbid [E66.01] INVALID FOR* More... Protein C deficiency [D68.59] INVALID FOR* More... 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 Chronic pain [G89.29] INVALID FOR* More... Paroxysmal VT [I47.2] INVALID FOR* Priority: B More... Acute combined systolic and diastolic heart khari*INVALID FOR* Priority: C More... A-fib [I48.91] INVALID FOR* Priority: D More... Hyponatremia [E87.1] INVALID FOR* More... Dual implantable cardioverter-defibrillator in *INVALID FOR*08/20/2014 More... Physical deconditioning [R53.81] INVALID FOR* More... Panniculitis [M79.3] INVALID FOR* Umbilical hernia without mention of obstruction*INVALID FOR* S/P ICD (internal cardiac defibrillator) proced*INVALID FOR* SVT (supraventricular tachycardia) (HCC) [I47.1]INVALID FOR* UTI (lower urinary tract infection) [N39.0] INVALID FOR* BPH (benign prostatic hyperplasia) [N40.0] INVALID FOR* Morbid obesity (HCC) [E66.01] INVALID FOR* Adult BMI >=70 kg/sq m (HCC) [Z68.45] INVALID FOR* Ventral hernia [K43.9] INVALID FOR* PVD (peripheral vascular disease) (HCC) [I73.9] INVALID FOR* Weight disorder [R63.8] INVALID FOR* Other instructions from your clinician: LIFESTYLE CHANGE A healthy lifestyle is the most important component of your overall treatment plan. Please give serious thought to the following areas and commit to making care home changes. EAT A WHOLE FOOD, PLANT BASED DIET The nutrition your body gets is more important than the medicine you take. What matters most is the overall way you eat. We encourage you to minimize the use of animal products (which include dairy and all meats except fatty fish) and use whole, unprocessed plant foods to provide your protein, vitamins and other nutrients. We have a lot of information to share with you on this topic. We also hold Shared Medical Appointments, where you can come visit with Dr. Donnelly in the company of other patients and spend over an hour talking about the challenges of changing the way you eat. This is not a diet. It is a way of life that you will keep with you. EXERCISE REGULARLY It is not important to spend hours in the gym, lifting weights and perspiring heavily. A total of 2-3 hours per week of aerobic (causing you to be moderately short of breath) exercise is sufficient to improve your health. Talk to us before you begin a new exercise program, if you have heart disease or experience shortness of breath or chest pain. REDUCE STRESS Chronic emotional and physical stress leads to disease. Ways of reducing stress include meditation, visualization, prayer, yoga and other forms of relaxation therapy. Consistency is the levy. Find a technique that works for you and do it every day. CULTIVATE RELATIONSHIPS Loneliness and isolation have a major negative impact on health. Seek out others who can love, care for and nurture you. Avoid hurtful relationships. MAINTAIN IDEAL BODY WEIGHT The best way to do this is to do all the things above. Our bodies naturally find the right weight if we keep moving and feed ourselves the right food. If your BMI is greater than 25, we strongly recommend a referral to a weight management program. Please speak to us or your family physician about available programs. AVOID NICOTINE IN ALL FORMS This includes all tobacco products, whether chewed, smoked, vaped, or rubbed on the skin. Smoking cessation programs, which can make use of tobacco substitutes, medications to suppress cravings and behavior management, are available. Please contact your family physician about programs in your area. Encounter Status:Closed by DEEPA DONNELLY MD on 05/11/17 ELI Observed: 05/11/2017 Status: COMPLETED Source: [place] 12:00 AM CLINIC OTHER CAMPUS REPOSITORY Telephone (AGCARDWST) PHILLILIANA ([id number]) 1960 M Date Time Provider Department 05/11/17 DEEPA DONNELLY AGCARDWST During your visit today, we recorded the following information about you: Elisha Rivas PSR 05/11/2017 3:25 PM Signed Sent E-mail to Anay Rodriguez and Gavi Brooks asking for a consult to Electrophysiology and also a Device check to be done within the next couple of months per Dr. Andrzej Carroll, RN, RN 06/20/2017 2:06 PM Signed Patient states that he has never been contacted regarding an EP appt, can you f/u, thank you. Elisha Rivas PSR 06/21/2017 9:15 AM Signed Sent second E-Mail to Anay Rodriguez regarding this appointment being made. Elisha Rivas PSR 06/22/2017 4:35 PM Signed Appointment made Allergies As of Date: 05/11/2017 Noted Allergy Reaction COUMADIN (WARFARIN SODIUM) 12/13/2011 14 - Other: See Comments Comments: oversensitive. GI Bleed LATEX 01/31/2005 14 - Other: See Comments Comments: skin breakdown- no resp difficulty Date Reviewed: 05/11/2017 Reviewed by: Edvin King - Fully Assessed Reason for Visit: Appointment [186] Prescriptions as of 05/11/2017 Sig: SPIRONOLACTONE 25 MG TABLET Take 2 tablets by mouth twice* BUPROPION HCL 100 MG TABLET Take 100 mg by mouth once john* DOCUSATE SODIUM 100 MG TABLET Take by mouth. LOSARTAN 50 MG TABLET Take 50 mg by mouth once xenia* FLUTICASONE FUROATE 100 MCG/A* Inhale as instructed. FUROSEMIDE 40 MG TABLET Take 2 tablets by mouth twice* AMIODARONE 200 MG TABLET TAKE 2 TABLETS (400MG) BY CLAIRE* CICLOPIROX 8 % TOPICAL SOLUTI* Apply 1 application to affect* CYANOCOBALAMIN (VIT B-12) 1,0* Take 1 tablet by mouth once d* CARVEDILOL 12.5 MG TABLET Take 1.5 tablets by mouth twi* ACETAMINOPHEN 325 MG TABLET Take 1 tablet by mouth every * OXYCODONE 5 MG TABLET Take 1-2 tablets by mouth rolo* Patient taking differently: Take 10 mg by mouth every 4 h* ASPIRIN 81 MG TABLET,DELAYED * Take 81 mg by mouth once xenia* CICLOPIROX 8 % TOPICAL SOLUTI* Apply 1 application to affect* MULTI VITAMIN ORAL Take by mouth. PROAIR HFA INHALATION Inhale as instructed. SULFASALAZINE 500 MG TABLET Take 500 mg by mouth three ti* MAGNESIUM OXIDE 400 MG CAPSULE Take 1 capsule by mouth once * OMEPRAZOLE 20 MG CAPSULE,RAMY* Take 1 capsule by mouth once * SENNOSIDES 8.6 MG TABLET Take 1 tablet by mouth twice * SERTRALINE 100 MG TABLET Take 100 mg by mouth once john* * NITROQUICK 0.4 MG SUBLINGUAL * Take one tablet sublingually * * AMBIEN 10 MG TABLET Take one(1) tablet daily at b* * ATIVAN 0.5 MG TABLET Take one(1) tablet two(2) lisa* Problem List As Of Date 05/11/2017 Noted Resolved GYNECOMASTIA [N62] INVALID FOR* EDEMA [R60.9] INVALID FOR* Lymphedema [I89.0] Sleep apnea [G47.30] More... Cardiomyopathy, nonischemic [I42.8] INVALID FOR* Priority: E More... Impaired fasting glucose [R73.01] INVALID FOR* Obesity, morbid [E66.01] INVALID FOR* More... Protein C deficiency [D68.59] INVALID FOR* More... 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 Chronic pain [G89.29] INVALID FOR* More... Paroxysmal VT [I47.2] INVALID FOR* Priority: B More... Acute combined systolic and diastolic heart khari*INVALID FOR* Priority: C More... A-fib [I48.91] INVALID FOR* Priority: D More... Hyponatremia [E87.1] INVALID FOR* More... Dual implantable cardioverter-defibrillator in *INVALID FOR*08/20/2014 More... Physical deconditioning [R53.81] INVALID FOR* More... Panniculitis [M79.3] INVALID FOR* Umbilical hernia without mention of obstruction*INVALID FOR* S/P ICD (internal cardiac defibrillator) proced*INVALID FOR* SVT (supraventricular tachycardia) (HCC) [I47.1]INVALID FOR* UTI (lower urinary tract infection) [N39.0] INVALID FOR* BPH (benign prostatic hyperplasia) [N40.0] INVALID FOR* Morbid obesity (HCC) [E66.01] INVALID FOR* Adult BMI >=70 kg/sq m (HCC) [Z68.45] INVALID FOR* Ventral hernia [K43.9] INVALID FOR* PVD (peripheral vascular disease) (HCC) [I73.9] INVALID FOR* Weight disorder [R63.8] INVALID FOR* Encounter Status:Closed by ELISHA NEVILLE on 05/11/17 ABDOMEN SINGLE VIEW Observed: 03/13/2017 Status: F Source: [place] 4:29 PM [facility] REPOSITORY [facility] Imaging Services [address] [place] [id number] Abdomen Single View MR#: [id number] Acct: [id number] Name: LILIANA VILLARREAL Rep #: [id number] : 1960 M 57 From: [place] Shore MD PCP: Eli KINNEY,Dwaine Mann Status: REG CLI Study: Abdomen Single View Date of Exam: 03/13/17 Exam# [id number] Ordering Dr: Dwaine Benitez MD STUDY: X-RAY - ABDOMEN/PELVIS REASON FOR EXAM: Male, 57 years old. Abdominal pain TECHNIQUE: Single AP view of the abdomen / pelvis. COMPARISON: None. FINDINGS: Normal visualized lung bases. There is an unremarkable bowel gas pattern. There is no demonstrated free abdominal air. The visualized liver, spleen and kidneys are grossly normal in size and morphology. Normal soft tissue structures. There are diffuse degenerative changes of the visualized lumbar spine. RAD/Abdomen Single View IMPRESSION: No gross acute abnormality. Electronically Signed: Chino hSore MD at 17:05 EST , Service support , CC: Dwaine Benitez MD Director News: Signed CHEST PA AND LATERAL Observed: 03/13/2017 Status: F Source: [place] 4:29 PM [facility] REPOSITORY [facility] Imaging Services [address] [place] [address] Chest PA and Lateral MR#: [id number] Acct: [id number] Name: LILIANA VILLARREAL Rep #: [id number] : 1960 M 57 From: Chino Shore MD PCP: Dwaine Benitez MD, Chi Status: REG CLI Study: Chest PA and Lateral Date of Exam: 03/13/17 Exam# [id number] Ordering Dr: Dwaine Benitez MD STUDY: X-RAY CHEST REASON FOR EXAM: Male, 57 years old. Cough and shortness of breath. TECHNIQUE: Frontal and lateral views of the chest. COMPARISON: 01/12/2017. FINDINGS: Mild hyperexpansion of the lungs. Mild congestion and interstitial edema slightly better than previous exam. No infiltrates. No effusions. There is moderate cardiac enlargement. Pacer lead terminates in the right ventricle. Normal mediastinum and oumou. Normal visualized pulmonary arteries. Normal visualized aortic arch and descending thoracic aorta. Degenerative changes throughout the bones. There is no demonstrated abnormality of the visualized soft tissue structures of the upper abdomen. RAD/Chest PA and Lateral IMPRESSION: Mild congestion and pulmonary edema, improved since previous study. Electronically Signed: Chino Shore MD at 17:06 EST , Service support , CC: Dwaine Benitez MD Director News: Signed CBC W/DIFF, AUTOMATED Collected: 03/13/2017 Status: F Source: [place] 4:13 PM [facility] REPOSITORY TYPE CODE TESTS RESULT OUT OF RANGE REFERENCE UNITS LAB L100.1000 4.4-11.0 K/mm3 Normal WBC 7.7 LAB L100.1200 4.6-6.2 M/mm3 Low RBC 4.25 LAB L100.1300 13.0-16.5 g/dl Normal HGB 13.1 LAB L100.1400 40-54 % Normal HCT 42.2 LAB L100.1500 80-94 fL High MCV 99.3 LAB L100.1600 27.0-32.0 pg Normal MCH 30.8 LAB L100.1700 32-36 g/gl Low MCHC 31.0 LAB L100.1810 11.6-14.6 % High RDW CV 18.3 LAB L100.1820 35.1-43.9 fl High RDW SD 65.3 LAB L100.1900 150-450 K/mm3 Normal PLT 189 LAB L100.2000 6.2-12.0 fl Normal MPV 10.6 LAB L100.2100 47-70 % High NEUT% 73.4 LAB L100.2200 19-41 % Low LY% 10.2 LAB L100.2300 0-10 % High MONO% 14.3 LAB L100.2400 0-5 % Normal EO% 1.7 LAB L100.2500 0-1 % Normal BASO% 0.3 LAB L100.2550 0.0-0.9 % Normal IM GRAN % 0.100 Result Comment: IG% - Immature Granulocytes (promyelocytes, myelocytes and metamyelocytes) > 1% indicates that a LEFT SHIFT is Present. LAB L100.2620 2.0-7.7 X10 3/uL Normal Absolute Neut 5.6 LAB L100.2720 0.83-4.51 X10 3/ul Low Absolute Lymph 0.78 LAB L100.4500 SMEAR Normal COMMENT SEE COMMENT LAB L100.5500 ADEQ PLT Normal EST ADEQUATE LAB L100.7300 ANISO 1+ Normal LAB L100.7800 1+ Normal MACROCYTE Performed By: #### L100.0100 #### [facility] [place], [address] COMPREHENSIVE METABOLIC Collected: 03/13/2017 Status: F Source: [place] [facility] 4:13 PM [facility] REPOSITORY TYPE CODE TESTS RESULT OUT OF RANGE REFERENCE UNITS LAB L501.0100 70-110 mg/dL Normal GLU 93 LAB L501.1000 7-18 mg/dL High BUN 26 LAB L501.1100 0.70-1.30 mg/dL Normal 1.06 CREAT,SERUM Result Comment: The validity of the calculated GFR AND GFRAA in patients over 70 years has not been determined. Clinical correlation is essential. LAB L501.1110 >60 mL/min Normal EST GFR 77 Result Comment: Non- GFR Calc LAB L501.1115 >60 mL/min Normal EST GFR - AA 93 Result Comment: GFR Calc LAB L501.1300 10-20 RATIO High BUN/CRE 24.5 LAB L501.1500 6.4-8.2 g/dL T Normal PROT 7.6 LAB L501.1800 3.4-5.0 g/dL Normal ALB 3.7 Result Comment: Please note revised Albumin AND Globulin reference range effective 2017. LAB L501.1950 2.2-4.2 g/dL Normal GLOB 3.9 LAB L501.2000 0.9-2.4 RATIO Normal A/G 0.9 LAB L501.2200 8.5-10.1 mg/dL Normal CA 8.8 LAB L501.4100 15-37 U/L Normal AST 21 LAB L501.4305 45-117 U/L Normal ALK P 76 LAB L501.4405 12-78 U/L Normal ALT 23 LAB L501.4600 0.20-1.00 mg/dL Normal T BILI 0.50 LAB L501.5300 136-145 mmol/L Normal NA 137 LAB L501.5600 3.5-5.1 mmol/L Normal K 4.0 LAB L501.5900 98-107 mmol/L Normal CL 100 LAB L501.6100 21.0-32.0 mmol/L Normal CO2 32.0 LAB L501.6200 5-15 Normal GAP 5 Performed By: #### L500.4050, L501.5200, L501.9520 #### [facility] [address] [place], [address] MAGNESIUM Collected: 03/13/2017 Status: F Source: [place] 4:13 PM [facility] REPOSITORY TYPE CODE TESTS RESULT OUT OF RANGE REFERENCE UNITS LAB L501.5200 1.8-2.4 mg/dL Normal MG 2.0 Performed By: #### L500.4050, L501.5200, L501.9520 #### [facility] [address] [place], [address] THYROID STIM HORMONE Collected: 03/13/2017 Status: F Source: [place] (TSH) 4:13 PM [facility] REPOSITORY TYPE CODE TESTS RESULT OUT OF RANGE REFERENCE UNITS LAB L501.9520 0.358-3.74 uIU/mL Normal TSH 2.41 Performed By: #### L500.4050, L501.5200, L501.9520 #### [facility] [address] [place], [address] ALLERGIES ALLERGIES DATE TYPE / CODE NAME / CODE REACTION SEVERITY SOURCE 12/02/2014 Drug warfarin Other Unknown [facility] Allergy/416 sodium/[id number] Hospital 169004(SNOM 85(RXNORM) Repository ED CT) 12/02/2014 Drug latex/[id number] Rash Unknown [facility] Allergy/416 1(RXNORM) Hospital 689647(SNOM Repository ED CT) 12/13/2011 DRUG WARFARIN SODIUM OTHER: [facility] [place] [address] 165783(SNOM Repository ED CT) 01/31/2005 DRUG LATEX OTHER: [facility] [place] [address] 701609(SNOM Repository ED CT) NG/[id number] WARFARIN SODIUM [facility] 6([employer] CT) Repository NG/[id number] LATEX [facility] 6(SNFocus IP [place]) Repository ENCOUNTERS ENCOUNTERS ADMIT/DISCHARGE ACCOUNT NUMBER ADMITTING ENCOUNTER LOCATION SOURCE CLASS 02/21/2018 [id number] Ambulatory [facility] ding:POLAB3 Repository 01/25/2018/01/26/20 [id number] Ambulatory [address] Repository 01/18/2018/01/19/20 [id number] Ambulatory [address] Repository 01/18/2018/01/19/20 [id number] Ambulatory [address] MEDICAL Repository CENTERBuildi ng:AKEPD 01/03/2018 [id number] Ambulatory [facility] ding:NS Repository 01/02/2018 [id number] Ambulatory [facility] MEDICAL Repository CENTERBuildi ng:AKEPD 12/21/2017/12/22/19 [id number] Ambulatory [address] ding:NS Repository 11/23/2017/11/24/19 [id number] Ambulatory [address] Repository 11/19/2017 [id number] Ambulatory [facility] ding:POLAB3 Repository 11/16/2017/11/17/19 [id number] Ambulatory [address] Repository 11/16/2017/11/21/19 [id number] Ambulatory [address] Repository 11/16/2017 [id number] Ambulatory [facility] MEDICAL Repository CENTERBuildi ng:CAGWS 11/09/2017/11/24/19 [id number] Ambulatory [address] ding:NS Repository 10/08/2017/10/24/19 [id number] Ambulatory [address] ding:NS Repository 10/01/2017/10/02/19 [id number] Ambulatory [address] Repository 10/01/2017/10/02/19 [id number] Ambulatory [address] MEDICAL Repository CENTERBuildi ng:AKEPD 09/28/2017 [id number] Ambulatory [facility] Repository 09/28/2017 [id number] Ambulatory [facility] Repository 09/21/2017/09/22/19 [id number] Ambulatory [place] ding:PT Repository 08/24/2017/09/23/19 [id number] Ambulatory [place] ding:NS Repository 07/27/2017/08/24/19 [id number] [place]ulatory [place] ding:NS Repository 07/09/2017 [id number] [facility] Repository 07/06/2017/07/24/19 [id number] Ambulatory [place] ding:NS Repository 06/20/2017 [id number] [facility] Repository 06/20/2017 [id number] Ambulatory BMSBuilding: [facility] Repository 06/15/2017/06/24/19 [id number] [place] [address] [place] [address] ding:NS Repository 05/16/2017 [id number] [facility]RAD Repository 05/11/2017 [id number] Ambulatory [facility] [place] Repository 05/11/2017 [id number] Ambulatory [facility] Repository 05/11/2017/05/11/19 [id number] Ambulatory [address] Other [place] Repository 05/11/2017/05/11/19 [id number] Ambulatory [address] MEDICAL Repository CENTERBuildi ng:CAGWS 05/04/2017/05/23/19 [id number] Ambulatory [place] [address] [place] [address] ding:NS Repository 04/26/2017 [id number] Ambulatory [facility] MEDICAL Repository CENTERBuildi ng:CAGWS 04/13/2017/04/25/19 [id number] Ambulatory [place] ding:NS Repository 03/20/2017/03/20/20 [id number] Ambulatory [address] Main [place] Repository 03/13/2017 [id number] [facility] ding[facility]POLAB3 Repository PAYERS PAYERS ENCOUNTER GUARANTOR PAYER SUBSCRIBER SOURCE 02/21/2018 LILIANA Herrera Primary LILIANA Vazquezoster [id number] [place] Insurance:[facility] BAISDENDOB: [address] [facility] [id number] Hospital [address]Ojj: (330) Number: Repository [phone] () [id number] Date:1518-40-52[address] [address]TG: 02/21/2018 Secondary NOT GIVENUNK [place] Insurance:SELF PAY [facility] Number: Effective Repository Date:2018-02-21 01/18/2018 LILIANA Herrera Primary LILIANA Medeirosron General BAISDENDOB: Insurance:[facility] BAISDENDOB: Health System MEDICAREPolicy [id number] Repository [place] [address] Number: [id number] [place] [id number] [address]Ytf: (330) Date: [phone] () 01/18/2018 Secondary LILIANA Medeirosron General Insurance:[facility] BAISDENDOB: Health System MEDICAIDPolicy [id number] Repository Number: [id number] Date: 01/03/2018 LILIANA Herrera Primary LILIANA Vazquezoster [id number] [place] Insurance:[facility] BAISDENDOB: [address] [facility] [id number] Hospital [address]Gbp: (330) Number: Repository [phone] () [id number] Date:9617-33-85XI[address] [address]IH: 01/03/2018 Secondary NOT GIVENUNK [place] Insurance:SELF PAY [facility] Number: Effective Repository Date:2017-12-24 01/02/2018 LILIANA L Primary LILIANA L [facility] BAISDENDOB: Insurance:[facility] BAISDENDOB: Health System MEDICAREPolicy [id number] Repository [place] [address] Number: [id number] [id number] [address]Zrk: (330) Date: [phone] () 01/02/2018 Secondary LILIANA L [facility] MEDICAIDPolicy [id number] Repository Number: [id number] Date: 12/21/2017 LILIANA L Primary LILIANA Vazquezoster [id number] [place] Insurance:[facility] BAIIDENDOB: [address] [facility] [id number] Hospital [address]Upc: (330) Number: Repository [phone] () [id number] Date:0265-57-25YB[address] [address]XC: 12/21/2017 Secondary NOT GIVENUNK [place] Insurance:SELF PAY [facility] Number: Effective Repository Date:2017-11-24 11/19/2017 LILIANA L Primary LILIANA Vazquezoster [id number] [place] Insurance[facility] [address] [facility] [id number] Hospital 727[address]Klg: (330) Number: Repository [phone] () [id number] Date:1820-18-59ER[address] [address]EZ: 11/19/2017 Secondary NOT GIVENUNK [place] Insurance:SELF PAY [facility] Number: Effective Repository Date:2017-11-19 11/16/2017 LILIANA L Primary LILIANA L [facility] BAISDENDOB: Insurance:[facility] BAIIDENDOB: Health System [id number] MEDICAREPolicy [id number] Repository [place] [address] Number: [place], [place] [id number] [address]Qid: (330) Date: [phone] () 11/16/2017 Secondary LILIANA L [facility] Insurance:[facility] BAIIDENDOB: [facility] System MEDICAIDPolicy [id number] Repository Number: [id number] Date: 11/09/2017 LILIANA L Primary LILIANA L [place] [id number] [place] Insurance:[facility] BAISDENDOB: [address] [facility] [id number] Hospital 92[address]Lhd: (330) Number: Repository [phone] () [id number] Date:0902-04-01PN[address] [address]SF: 11/09/2017 Secondary NOT GIVENUNK [place] Insurance:SELF PAY [facility] Number: Effective Repository Date:2017-10-24 10/08/2017 LILIANA L Primary LILIANA L [place] [id number] [place] [facility] [address] [facility] [id number] Hospital [address]Rbh: (330) Number: Repository [phone] () [id number] Date:9755-17-28ZB[address] [address]WO: 10/08/2017 Secondary NOT GIVENUNK [place] Insurance:SELF PAY [facility] Number: Effective Repository Date:2017-09-23 10/01/2017 LILIANA L Primary LILIANA L [facility] BAISDENDOB: Insurance:[facility] BAISDENDOB: Health System [id number] MEDICAREPolicy [id number] Repository [place] [address] Number: [place], [place] [id number] [address]Spa: (330) Date: [phone] () 10/01/2017 Secondary LILIANA L [facility] Insurance:[facility] BAISDENDOB: Health System MEDICAIDPolicy [id number] Repository Number: [id number] Date: 09/21/2017 LILIANA L Primary LILIANA L [place] [id number] [place] Insurance:[facility] [address] [facility] [id number] Hospital [address]Ilc: (330) Number: Repository [phone] () [id number] Date:6666-01-43QV[address] [address]YW: 09/21/2017 Secondary NOT GIVENUNK [place] Insurance:SELF PAY [facility] Number: Effective Repository Date:2017-08-02 08/24/2017 LILIANA Herrera Primary LILIANA [id number] [address] Insurance:[facility] BAISDENDOB: [address] [facility] [id number] Hospital [address]Ecc: (330) Number: Repository [phone] () [id number] Date:4300-35-91YY [address] [place] [address]JU: 08/24/2017 Secondary NOT GIVENUNK [place] Insurance:SELF PAY [facility] Number: Effective Repository Date:2017-08-24 07/27/2017 LILIANA Herrera Primary Insurance:[facility] LILIANA Vazquezoster [id number] [place] [facility] Number: BAISDENDOB: [address] [id number] Hospital [address]Tct: (330) Date:1811-17-48JV BOX Repository [phone] () 050689[place] [address]PG: 07/27/2017 Secondary NOT GIVENUNK [place] Insurance:SELF PAY [facility] Number: Effective Repository Date:2017-07-24 07/09/2017 LILIANA Herrera Primary Insurance:[facility] LILIANA Vazquezoster [id number] [place] [facility] Number: BAISDENDOB: [address] [id number] Hospital [address]Zal: (330) Date:1888-65-98DH BOX Repository [phone] () [id number] [place] [address]FA: 07/09/2017 Secondary NOT GIVENUNK [place] Insurance:SELF PAY [facility] Number: Effective Repository Date:2017-07-09 07/06/2017 LILIANA Herrera Primary Insurance:[facility] LILIANA Herrera [place] [id number] [place] [facility] BAISDENDOB: [address] [id number] Hospital [address]Ybd: (330) Date:7145-56-81SL BOX Repository [phone] (HP) [id number] [place] [address]LQ: 07/06/2017 Secondary NOT GIVENUNK [place] Insurance:SELF PAY [facility] Number: Effective Repository Date:2017-06-24 06/20/2017 LILIANA L Primary Insurance:[facility] LILIANA VILLARREAL1782 JAVI [facility] Number: BAISDENDOB: [address] [place] [id number] [id number] Hospital [address]Xjz: (330) Date:8344-74-37LI BOX Repository [phone] () [place], [place] [address]KR: 06/20/2017 Secondary NOT GIVENUNK [place] Insurance:SELF PAY [facility] Number: Effective Repository Date:2017-06-01 06/20/2017 LILIANA L Primary Insurance:[facility] LILIANA MATHIS2 JAVI [facility] HMOPolicy Number: BAISDENDOB: [address] [id number] Hospital [address]Pmz: (330) Date:7779-85-50FS BOX Repository [phone] (HP) 670643[place], [place] [address]YO: 06/20/2017 Secondary NOT GIVENUNK [place] Insurance:SELF PAY [facility] Number: Effective Repository Date:2017-06-20 06/15/2017 LILIANA L Primary Insurance:[facility] LILIANA MATHIS2 JAVI [facility] HMOPolicy Number: BAISDENDOB: [address] [id number] Hospital 326[address]Jbr: (330) Date:1519-12-28MH BOX Repository [phone] (HP) 762183MCAPHOEN[place], [place] [address]SQ: 06/15/2017 Secondary NOT GIVENUNK [place] Insurance:SELF PAY [facility] Number: Effective Repository Date:2017-05-24 05/16/2017 Liliana L Primary Insurance:[facility] Liliana Clementesden1782 [facility]: BaisdenDOB: [address], [place] [id number] Hospital [address]Jdj: (330) Date:6891-62-78RV BOX Repository [phone] (HP) 845879UOT[place], [place] [address]QG: 05/16/2017 Secondary NOT GIVENUNK [place] Insurance:SELF PAY [facility] Number: Effective Repository Date:2017-05-16 05/11/2017 LILIANA L Primary LILIANA L [facility] BAISDENDOB: Insurance[facility] BAISDENDOB: Health System [id number] [facility] [id number] Repository [facility] STAP Number: [place] [id number] [address]Gqd: ([phone]) Date: [phone] () 05/11/2017 Secondary LILIANA L [facility] Insurance:[facility] BAIIDENDOB: Health System [facility] [id number] Repository Number: [id number] Date: 05/04/2017 Liliana L Primary Insurance:[facility] Liliana Vazquezoster [id number] [facility] Number: BaisdenDOB: [address], [place] [id number] [id number] Hospital 8101[address]Qcm: (330) Date:9096-15-59LR BOX Repository [phone] () 082317TKFPHOEN[place], [place] [address]PY: 05/04/2017 Secondary NOT GIVENUNK [place] Insurance:SELF PAY [facility] Number: Effective Repository Date:2017-04-26 04/26/2017 LILIANA L Primary LILIANA L [facility] BAISDENDOB: Insurance:[facility] BAISDENDOB: Health System [id number] [facility] [id number] Repository [place] [address] Number: [place], [place] [id number] [address]Ghc: (330) Date: [phone] (HP) 04/26/2017 Secondary LILIANA [facility] Insurance:[facility] BAISDENDOB: Health System [facility] [id number] Repository Number: [id number] Date: 04/13/2017 Liliana Herrera Primary Insurance:[facility] Liliana Herrera [place] [id number] [facility] HMOPolicy Number: BaisdenDOB: [address] [id number] Hospital [address]Win: (330) Date:4874-42-56TK BOX Repository [phone] () 052611AXYPHOEN[place], [place] [address]GG: 04/13/2017 Secondary NOT GIVENUNK [place] Insurance:SELF PAY [facility] Number: Effective Repository Date:2017-03-23 03/13/2017 Liliana Herrera Primary Insurance:[facility] Liliana Herrera Ch[place]ag [id number] [facility] HMOPolicy Number: BaisdenDOB: [facility] CtA [id number] Date:8422-80-14XC BOX Repository 14[address]Lni: [phone]) 296065EEMPH[place]EN[place], [place] [phone] () [address]OJ: 03/13/2017 Secondary NOT GIVENUNK [place] Insurance:SELF PAY [facility] Number: Effective Repository Date:2017-03-13
== END ==
PROVIDERS: Family Provider Family Medicine Geriatric Medicine; PCP Family Medicine Geriatric Medicine; Visit Provider Family Medicine Geriatric Medicine
DX: E23.6 Other disorders of pituitary gland (principal)
CPT/HCPCS: 36415; 80053; 84403; 84443; 85025

== ENCOUNTER → 2018-03-25 10:01 | Outpatient (CLI) | payer MEDICARE, SELFPAY ==
[2018-03-25 10:23] LABS: Absolute Lymphocyte Count 0.64 X10^3/ul (0.83-4.51); Absolute Neutrophil Count 3.8 X10^3/uL (2.0-7.7); Basophil# 0.02 X10^3/uL; Basophil% 0.4 % (0-1); Eosinophil# 0.13 X10^3/uL; Eosinophils% 2.4 % (0-5); Hematocrit 42.1 % (40-54); Hemoglobin 13.1 g/dl (13.0-16.5); Lymphocyte # 0.64 X10^3/ul (4.0); Mean Corp Hgb Conc 31.1 g/gl (32-36); Mean Corpuscular Hgb 32.8 pg (27.0-32.0); Mean Corpuscular Volume 105.5 fL (80-94); Mean Platelet Vol. 10.7 fl (6.2-12.0); Monocyte# 0.74 X10^3/uL; Monocyte% 13.8 % (0-10); Neutrophil # 3.82 X10^3/uL (2.7-7.7); Neutrophil % 71.4 % (47-70); Platelet Count 132 K/mm3 (150-450); RBC Distribution Width CV 16.9 % (11.6-14.6); RBC Distribution Width SD 64.4 fl (35.1-43.9); Red Blood Count 3.99 M/mm3 (4.6-6.2); White Blood Count 5.4 K/mm3 (4.4-11.0)
[2018-03-25 10:26] LABS: POSITIVE COUNT NO; POSITIVE DIFFERENTIAL NO; POSITIVE MORPHOLOGY NO
[2018-03-25 10:35] LABS: International Normalized Ratio 1.3
[2018-03-25 11:03] LABS: Anion Gap 10 (5-15); BUN 38 mg/dL (7-18); BUN/Creat Ratio 29.9 RATIO (10-20); Chloride 104 mmol/L (98-107); Creatinine, Serum 1.27 mg/dL (0.70-1.30); EST Glomerular Filtration Rate 62 mL/min (>60); Est Glom Filt Rate - Afr Amer 75 mL/min (>60); Glucose 90 mg/dL (74-106); Potassium 4.5 mmol/L (3.5-5.1); Sodium Level 141 mmol/L (136-145)
== END ==
PROVIDERS: Family Provider Family Medicine Geriatric Medicine; PCP Family Medicine Geriatric Medicine; Referring Provider Family Medicine Geriatric Medicine; Visit Provider Family Medicine Geriatric Medicine
DX: D68.8 Other specified coagulation defects (principal)
CPT/HCPCS: 36415; 80048; 85025; 85610

== ENCOUNTER 2018-05-13 09:30 | Day surgery (SDC) | payer MEDICARE, SELFPAY ==
[2018-05-13] VITALS (20 sets, daily range): BP systolic 59–136; BP diastolic 35–86; PULSE 45–62; RESP 16–18; TEMP 36.1–36.9; O2SAT 93–98; BMI 63.6
[2018-05-13] MEDS: Bupivacaine 0.25% 30 ML Vial (10:48)
[2018-05-13] MEDS: MethylPREDNISolone Acetate 80 MG/ML Vial (10:48)
--- NOTE | 2018-05-13 11:14 | EKG12_ITS ---
Test Reason : Blood Pressure : / mmHG Vent. Rate : 127 BPM Atrial Rate : 192 BPM P-R Int : 000 ms QRS Dur : 004 ms QT Int : 194 ms P-R-T Axes : 000 000 235 degrees QTc Int : 281 ms Atrial flutter with variable A-V block Low voltage QRS Right bundle branch block Confirmed by KATHERINE KINNEY, ABRIL ([id number]), mapping editor BRYAN POTTS ([id number]) on 05/15/2018 10:45:20 AM Referred By: Gabriel Olmedo Confirmed By:ABRIL MURPHY MD
--- NOTE | 2018-05-13 11:30 | RAD_ITS ---
STUDY: Pelvic intraoperative study. LEFT SHOULDER REASON FOR EXAM: Male, 58 years old. Injection shoulder TECHNIQUE: 2 fluoroscopic view(s) of the shoulder. COMPARISON: None. FINDINGS: 2 fluoroscopic images show a injection needle over the left shoulder. RAD/Shoulder One View IMPRESSION: Intraoperative imaging of the left shoulder during injection. Electronically Signed: Mckenzie King MD at 23:55 EST Tel , Service support ,
--- NOTE | 2018-05-13 12:11 | PCM.OPRPT ---
Problem List (1) Primary osteoarthritis of right shoulder Status: Chronic Report of Operation Date of Procedure: 05/13/18 Pre-Operative Diagnosis: Osteoarthritis of the right shoulder Post-Operative Diagnosis: Osteoarthritis of the right shoulder Surgery/Procedure Performed:: Right shoulder intra-articular steroid injection under fluoroscopic guidance Description of Surgical Findings:: PROCEDURE: Right shoulder intra-articular steroid injection under fluoroscopic guidance PREOPERATIVE DIAGNOSIS: Osteoarthritis of the right shoulder POSTOPERATIVE DIAGNOSIS: Osteoarthritis of the right shoulder ANESTHESIA: MAC COMPLICATIONS: None BLOOD LOSS: Minimal PROCEDURE IN DETAIL: History and physical today was reviewed. Risks and benefits of the procedure were explained. The patient understood, agreed to our procedure, and informed consent was obtained. IV inserted per routine protocol. The patient was taken to the operating room, placed in a supine position the right shoulder area was prepped and draped in a sterile fashion using iodine x3 and fluoroscopy guidance AP view of the right shoulder joint was visualized the skin and subcutaneous tissue and size approximately 3 cc of 1% lidocaine using a 25-gauge regular needle under direct visualization fluoroscopy on AP view using a 22-gauge 3-1/2 inch spinal needle the needle was advanced via the skin the tip of the needle's maneuver and directed towards the anterior articular joint on the right shoulder after negative aspiration for blood positive aspiration of synovial fluid a total of 3 cc of synovial fluid was then aspirated from the joint after repeated confirmation on AP as well as oblique view a total of 2 cc of contrast were injected to confirm correct placement of the needle as well as intra-articular spread of the contrast after repeated negative aspiration and confirmation a total of 4 cc of preservative-free 0.25% Marcaine with 40 mg of Depo-Medrol injected easily the needle was then removed intact patient experienced no signs or symptoms of intravascular injection patient experienced no paresthesia. The procedure was completed without any apparent difficult, any complication. The patient appeared to tolerate well. ASSESSMENT AND PLAN: This is a 58-year-old male with osteoarthritis of the right shoulder status post right shoulder intra-articular steroid injection under fluoroscopic guidance, the patient will continue his current medications. The patient will follow in approximately 2 weeks for reevaluation.
== END 2018-05-13 14:38 | disposition home or self-care (01) ==
LOC: SDC 09:30 → AC 10:02
PROVIDERS: Family Provider Family Medicine Geriatric Medicine; PCP Family Medicine Geriatric Medicine; Referring Provider Anesthesiology Pain Medicine; Visit Provider Anesthesiology Pain Medicine
PROC: 3E0U3GC Introduction of Other Therapeutic Substance into Joints, Percutaneous Approach (ICD-10-PCS; CPT 20610; principal; 2018-05-13 11:25)
DX: M19.011 Primary osteoarthritis, right shoulder (principal); K21.9 Gastro-esophageal reflux disease without esophagitis; I10 Essential (primary) hypertension; J44.9 Chronic obstructive pulmonary disease, unspecified; G47.30 Sleep apnea, unspecified; G47.33 Obstructive sleep apnea (adult) (pediatric); I50.9 Heart failure, unspecified; Z95.810 Presence of automatic (implantable) cardiac defibrillator
CPT/HCPCS: 20611; 73020; 76000; 93005; J7120

== ENCOUNTER 2018-06-24 07:40 | Day surgery (SDC) | payer MEDICARE, SELFPAY ==
[2018-05-13 10:20] VITALS: BMI 63.6
--- NOTE | 2018-06-20 08:55 | PCM.HP.STD ---
History of Present Illness The patient is a 58 year old M [] Past Medical History Past Medical History (Chronic Problems): Chronic Problems Primary osteoarthritis of right shoulder (Chronic) Anxiety and depression (Chronic) History of DVT (deep vein thrombosis) (Chronic) Diastolic heart failure (Chronic) TEX (obstructive sleep apnea) (Chronic) Hyperlipidemia (Chronic) Benign essential hypertension (Chronic) Rheumatoid arthritis (Chronic) dilated right ventricle (Chronic) Cardiomyopathy (Chronic) Super obesity (Chronic) WPW (Vdmqf-Unneoqulo-Mxrkq syndrome) (Chronic) Atrial fibrillation (Chronic) Allergies latex Allergy (Verified 05/08/18 10:58) Rash warfarin sodium [From Coumadin] Adverse Reaction (Verified 05/08/18 10:58) Other Home Medications: Ambulatory Orders Medication Instructions Recorded Aspirin [Aspirin, Baby] 81 mg PO DAILY@0800 05/02/14 Bupropion HCl 100 mg PO DAILY 05/02/14 Magnesium Oxide [Mag-Ox 400] 400 mg PO DAILY 05/02/14 Omeprazole [Prilosec] 20 mg PO DAILY 05/02/14 Oxycodone [Oxyir] 10 mg PO BID 05/02/14 Spironolactone [Aldactone] 25 mg PO BID 05/02/14 Sulfasalazine [Azulfidine] 500 mg PO TID 05/02/14 Zolpidem Tartrate [Ambien] 10 mg PO QHS 05/02/14 Albuterol IH (ProAir) [Proair Hfa] 2 puff INHALATION Q6H PRN PRN 07/17/14 Amiodarone HCl [Pacerone] 400 mg PO DAILY 07/17/14 Carvedilol [Coreg (Beta Maria Victoria)] 12.5 mg PO BID 07/17/14 Nitroglycerin [Nitrostat] 0.4 mg SUBLINGUAL Q5M PRN 07/17/14 Senna [Senokot] 1 tablet PO BID 07/17/14 Sertraline HCl [Zoloft] 150 mg PO DAILY 07/17/14 Cholecalciferol (Vitamin D3) 3,000 unit PO DAILY 05/08/18 [Vitamin D3] Cyanocobalamin (Vitamin B-12) 1,000 mcg PO DAILY 05/08/18 [Vitamin B-12] Fluticasone Furoate [Arnuity 1 puff IH DAILY 05/08/18 Ellipta] Furosemide [Lasix] 80 mg PO DAILY 05/08/18 Lorazepam [Ativan] 0.5 mg PO QHS 05/08/18 Lorazepam [Ativan] 1 mg PO DAILY 05/08/18 Multivitamin with Minerals 1 each PO DAILY 05/08/18 [Multiple Vitamin] Oxybutynin Chloride [Ditropan Xl] 10 mg PO DAILY 05/08/18 Sacubitril/Valsartan 97-103 mg 1 each PO DAILY 05/08/18 [Entresto 97 mg-103 mg Tablet] Tizanidine HCl [Zanaflex] 4 mg PO TID 05/08/18 Surgical History: - - Cardiac ablation x 2, Defib placement, Cholecystectomy, LLE surgery s/p trauma w/ hardware removal later. Psychiatric History: Anxiety, Depression Smoking Status: Never smoker - *Family History Maternal History Items: Heart Disease, Hypertension Paternal History Items: Heart Disease, Hypertension Subjective: NOTE (May 02:37 PM) Chief Complaint: follow up History of Present Illness: This is a 58 Y/O Male who was seen and evaluated at our office today as a follow up Pain: arm, back, shoulder, hip, and knee pain. Quality: constant but varies in intensity. Region: left shoulder, bilateral knees, low back Severity: burning Timin Aggravated by: anything Relieved by: nothing Pain score (out of 10): 8/10 Other info: Patient is here for a follow up for left shoulder pain that radiates into left arm, and his left arm will get tingly and feel like a tooth ache feels. Reports low middle back pain that goes into bilateral hips. States his last injection in left shoulder is wearing off. States he is seeing Dr Pizarro for his heart. Review of Systems: notes some cp. Patient denies any recent fever, chills, headache, change in weight without trying, vision or hearing problems. No sob, correa, pnd, orthopnea, or peripheral edema.They note no lumps or swollen glands, no new rashes, changing moles, or change in bowel or bladder function. No melena or BRBPR. Mood has been more down and he is frustrated and tired of pain. Past Medical History: h/o Arthritis h/o CHF h/o COPD h/o phlebitis h/o ulcers h/o Gout h/o obstructive sleep apnea h/o Parikh [address] h/o lt ankle fx 1975 s/p Cholecystectomy 1996 s/p Left ankle sx 1975 s/p Gastric sleeve/mesh placed s/p Defibrillator Family History: ======== Structured Family History ======== Grandparent: Stroke, Heart disease, Diabetes mellitus Grandparent: Stroke, Heart disease, Diabetes mellitus Social History: [Tobacco: Never smoker Pipe Smoker: No Cigar Smoker: No Chewing Tobacco User: No Electronic Cigarette User: No] Living situation: Occupation: Disability Tobacco: Denies EtOH: Denies Rec. drugs: Denies Allergies: Latex, Coumadin Medications: 1) Ambien 10 mg oral tablet, Take 1 tablet by mouth every evening prn 2) amiodarone 200 mg oral tablet, Take 1 tablet by mouth 2 times a Day 3) aspirin 81 mg oral delayed release tablet, Take 1 tablet by mouth once daily 4) atenolol 50 mg oral tablet, Take 1 tablet by mouth once daily 5) buPROPion 100 mg oral tablet, Take 1 tablet by mouth once daily 6) carvedilol 12.5 mg oral tablet, Take 1 tablet by mouth 2 times a Day 7) docusate sodium 100 mg oral capsule, Take 1 tablet by mouth 2 times a Day 8) doxycycline 100 mg tabs, Take 1 tablet by mouth 2 times a Day 9) Entresto 97 mg-103 mg oral tablet, Take 1 tablet by mouth 2 times a Day 10) Lasix 80 mg oral tablet, Take 1 tablet by mouth 2 times a Day 11) LORazepam 1.5mg 12) magnesium 400mg, Take 1 tablet by mouth once daily 13) nitroglycerin 0.4 mg sublingual tablet, prn 14) omeprazole 20 mg oral delayed release capsule, Take 1 tablet by mouth once daily 15) Oxycodone 10mg, Take 1 tablet by mouth 2 times a Day 16) sertraline 150mg, Take 1 tablet by mouth once daily 17) spironolactone 25 mg oral tablet, 1/2 tab po qday 18) sulfaSALAzine 500 mg oral tablet 19) tiZANidine 4 mg oral tablet, 1 TABLET TID NEEDED FOR SPASM 20) Vitamin B12 1000 mcg oral tablet, Take 1 tablet by mouth once daily 21) Vitamin D3 1000 intl units oral capsule 22) Voltaren 1% topical gel, Apply to affected area 3 times a day 23) zolpidem 10 mg oral tablet, Take 1 tablet by mouth once daily Physical Examination: Wt: 396 lb Ht/Ln: 66 in BMI: 63.9 BP: 94/54 Pulse: 58 RR: 18 Temp: 98.9F Pain: 7 Well nourished and well developed in no acute distress. Affect is normal and appropriate. Mucosa pink and moist. Chest is unlabored breathing, pt is alert and oriented to place, person and time. Neck is supple without significant lymphadenopathy or thyromegaly. Abdomen soft & non-tender. No HSM or masses appreciated. Extremities show no cyanosis, clubbing, 2+ pedal edema, morbidly obese. Gait is Antalgic with a walker. Pt has a round shoulder posture without neck stiffness, symmetrical alignment of the neck/ shoulder area, ROM of bilateral knees is limited due to pain worse on the right. Cervical paraspinal muscle tenderness. Lumbar paraspinal muscle tenderness. Lumbar ROM is limited due to pain. Bilateral lumbar facet loading is positive. ROM of the left shoulder is limited due to pain much improved Gait is Antalgic with a walker. Motor and sensory exam is unchanged. Goals: Health Concerns: Assessment & Plan: # Bilateral primary osteoarthritis of knee (M17.0): # Osteoarthritis of shoulder (M19.019): # Morbid obesity (E66.01): # Osteoarthritis (M19.90): # Taking multiple medications for chronic disease (Z79.899): # Lumbar pain (M54.5): Ordered a xray of the lumbar spine (M54.5) Continue with his current medications. OARRS was reviewed today. UDS was reviewed, pt appears compliant. SOAPP score is 12 Pt to see his PCP regarding his other health complaints. Weight loss was recommended today through diet and exercise Pt has had a gastric sleeve in the past, lost 50 lbs and then stopped. Life style modifications were also discussed today and the pt appears to understand. PEG was reviewed today. Reviewed with the pt today our opioid agreement and they appear to understand. All of avaliable images were reviewed with the pt today and they appear to understand. There are no signs of diversion or addiction with the pt, there is also no signs of abuse or misuse, continues to do well with their medications without any side effects, we will continue monitoring the pt closely. Risks and benefits of the above meds were discussed with the pt and they appear to understand. The common side effects of the medications were discussed and all of their questions and concerns were answered and they appear to understand Discussed natural and expected course of this diagnosis and need to alert me if symptoms do not follow expected course, or if any worse. Pt is to continue with his PT and HEP.understand and would like to proceed with the above plan. Pt has tried multiple modalities in the past with little or no success, will schedule the pt for a therapeutic/diagnostic caudal epidural steroid injection We have discussed the risks, benefits as well as alternatives of the procedure and the patient appears to understand and would like to proceed with the above plan. The above plan was discussed today with the pt in details and they appear to understand and agrees to continue with the plan. - Physical Exam Body Mass Index (BMI) 63.6 Assessment/Plan All Active Problems Low TSH level (Acute) Acute exacerbation of CHF (congestive heart failure) (Acute) Community acquired pneumonia (Acute) COPD with acute exacerbation (Acute)
[2018-06-24 08:34] VITALS: BP 118/86; PULSE 76; RESP 16; TEMP 36.4; O2SAT 97; BMI 62.9
--- NOTE | 2018-06-24 09:40 | RAD_ITS ---
PROCEDURE: Caudal block. DATE OF EXAMINATION: June 24, 2018. INDICATION: Male, 58 years old. Chronic low back pain. FLUOROSCOPY TIME (if supplied): (0:17) minutes/seconds. 2 coned-down views were obtained. Intraoperative imaging provided for caudal block. The spinal needle is seen overlying the midportion of the sacrum. RAD/Fluor Guidance for Spine Inj IMPRESSION: Intraoperative imaging for caudal block. Electronically Signed: Chino Crowder, at 8:50 EDT , Service support ,
[2018-06-24] MEDS: MethylPREDNISolone Acetate 80 MG/ML Vial (09:59)
[2018-06-24] MEDS: Bupivacaine 0.25% 30 ML Vial (10:00)
[2018-06-24 10:05] VITALS: BP 108/60; BP 118/86; PULSE 72; RESP 16; TEMP 36.6; O2SAT 97
[2018-06-24 10:10] VITALS: BP 113/63; BP 118/86; PULSE 77; RESP 16; O2SAT 97
[2018-06-24 10:20] VITALS: BP 107/58; BP 118/86; PULSE 68; RESP 16; O2SAT 97
--- NOTE | 2018-06-24 10:22 | OP.PCM_ITS ---
Problem List (1) DDD (degenerative disc disease), lumbosacral Status: Chronic (2) Radiculopathy of lumbosacral region Status: Chronic Report of Operation Date of Procedure: 06/24/18 Pre-Operative Diagnosis: Lumbosacral radiculopathy, lumbosacral degenerative disc disease, lumbosacral spinal stenosis Post-Operative Diagnosis: Lumbosacral radiculopathy, lumbosacral degenerative disc disease, lumbosacral spinal stenosis Surgery/Procedure Performed:: Diagnostic/therapeutic caudal epidural steroid injection Description of Surgical Findings:: PROCEDURE: Diagnostic/therapeutic caudal epidural steroid injection PREOPERATIVE DIAGNOSIS: Lumbosacral radiculopathy, lumbosacral degenerative disc disease, lumbosacral spinal stenosis POSTOPERATIVE DIAGNOSIS: Lumbosacral radiculopathy, lumbosacral degenerative disc disease, lumbosacral spinal stenosis ANESTHESIA: MAC COMPLICATIONS: None BLOOD LOSS: Minimal PROCEDURE IN DETAIL: History and physical today was reviewed. Risks and benefits of the procedure were explained. The patient understood, agreed to our procedure, and informed consent was obtained. IV inserted per routine protocol. The patient was taken to the operating room, placed in a prone position with a pillow positioned underneath the abdomen. The lower back area was prepped and draped in a sterile fashion using iodine x3 u nder fluoroscopy guidance on the lateral view the caudal space was identified the skin and subcutaneous tissue and size approximately 3 cc of 1% lidocaine using a 25-gauge regular needle under direct visualization fluoroscopy using a 22-gauge 3-1/2 inch spinal needle the needle was advanced via the skin through the sacral hiatus tip of the needle passed through the sacrococcygeal ligament advanced approximately S4 area after negative aspiration for blood or CSF a total of 3 cc of contrast were injected to confirm correct placement of the needle as well as cephalad spread the spread was followed to approximately L5 area after negative aspiration for blood or CSF and confirmation AP as well as lateral view a total of 15 cc of preservative-free 0.125% Marcaine with 80 mg of Depo-Medrol were injected easily. The needles were then removed intact. The patient experienced no signs or symptoms intrathecal, intravascular injection. The patient experienced no paraesthesia. The procedure was completed without any apparent difficult, any complication. The patient appeared to tolerate well. ASSESSMENT AND PLAN: This is a 58-year-old male with lumbosacral radiculopathy, lumbosacral degenerative disc disease, lumbosacral spinal stenosis status post diagnostic/therapeutic caudal epidural steroid injection. The patient will continue his current medications. The patient will follow in approximately 2 weeks for possible repeat of the procedure if indicated.
[2018-06-24 10:55] VITALS: BP 118/86
== END 2018-06-24 10:56 | disposition home or self-care (01) ==
LOC: SDC 07:41 → AC 07:42
PROVIDERS: Family Provider Family Medicine Geriatric Medicine; PCP Family Medicine Geriatric Medicine; Referring Provider Anesthesiology Pain Medicine; Visit Provider Anesthesiology Pain Medicine
PROC: 3E0S3BZ Introduction of Anesthetic Agent into Epidural Space, Percutaneous Approach (ICD-10-PCS; CPT 62282; principal; 2018-06-24 10:15)
DX: M51.17 Intervertebral disc disorders with radiculopathy, lumbosacral region (principal); M48.07 Spinal stenosis, lumbosacral region; M17.0 Bilateral primary osteoarthritis of knee; M19.019 Primary osteoarthritis, unspecified shoulder; E66.01 Morbid (severe) obesity due to excess calories; M19.90 Unspecified osteoarthritis, unspecified site; Z79.899 Other long term (current) drug therapy; Z68.44 Body mass index [BMI] 60.0-69.9, adult; G47.33 Obstructive sleep apnea (adult) (pediatric); J44.9 Chronic obstructive pulmonary disease, unspecified; I50.9 Heart failure, unspecified; I45.6 Pre-excitation syndrome
CPT/HCPCS: 64483; 77003; J7120; J3490

== ENCOUNTER 2018-08-12 08:07 | Day surgery (SDC) | payer MEDICARE, SELFPAY ==
[2018-08-12] VITALS (7 sets, daily range): BP systolic 104–129; BP diastolic 57–65; PULSE 59–116; RESP 16–20; TEMP 35.7–36.2; O2SAT 96–100; BMI 65.7
--- NOTE | 2018-08-12 10:10 | RAD_ITS ---
PROCEDURE: Bilateral L3 S1 facet joint block. DATE OF EXAMINATION: August 20, 2018. INDICATION: Male, 58 years old. Chronic low back pain. FLUOROSCOPY TIME (if supplied): (0:30) minutes/seconds. 8 coned-down views were obtained intraoperatively. Intraoperative imaging provided for bilateral L3 S1 facet joint block. RAD/L/S Spine Min 4 Views IMPRESSION: Intraoperative imaging provided for bilateral L3 S1 facet joint block. Electronically Signed: Chino Crowder, at 15:21 EDT , Service support ,
[2018-08-12] MEDS: MethylPREDNISolone Acetate 80 MG/ML Vial (10:38)
[2018-08-12] MEDS: Bupivacaine 0.25% 30 ML Vial (10:38)
--- NOTE | 2018-08-12 13:58 | OP.PCM_ITS ---
Problem List (1) Spondylosis of lumbosacral region without myelopathy or radiculopathy Status: Chronic (2) DDD (degenerative disc disease), lumbosacral Status: Chronic Report of Operation Date of Procedure: 08/12/18 Pre-Operative Diagnosis: Lumbosacral spondylosis, lumbosacral degenerative disc disease, lumbar facet arthropathy Post-Operative Diagnosis: Lumbosacral spondylosis, lumbosacral degenerative disc disease, lumbar facet arthropathy Surgery/Procedure Performed:: Bilateral lumbar facet steroid injection L3, L4, L5, S1 Description of Surgical Findings:: Bilateral-sided lumbar facet steroid injection L3, L4, L5, S1 PREOPERATIVE DIAGNOSIS: Lumbosacral spondylosis, lumbosacral degenerative disc disease, and lumbar facet arthropathy POSTOPERATIVE DIAGNOSIS: Lumbosacral spondylosis, lumbosacral degenerative disc disease, and lumbar facet arthropathy ANESTHESIA: MAC COMPLICATIONS: None BLOOD LOSS: Minimal PROCEDURE IN DETAIL: History and physical today was reviewed. Risks and benefits of the procedure were explained. The patient understood, agreed to our procedure, and informed consent was obtained. IV inserted per routine protocol. The patient was taken to the operating room, placed in a prone position with a pillow positioned underneath the abdomen. the lower back was prepped and draped in a sterile fashion using iodine x3. Under fluoroscopy guidance, on AP view, L3 through S1 vertebral bodies were visualized. Skin and subcutaneous tissues were anesthetized with approximately 8 mL of 1% lidocaine using a 25-gauge regular needle. Under direct visualization with fluoroscopy at approximately 25-degree angle, starting on the left L3, ending on the right L3, passing through the L4-L5 and S1 bilaterally using a 22-gauge 5 inch spinal needle, the needle was advanced via the skin. The tip of the needle was maneuvered and directed towards the superior and medial gutter of the transverse process at the vicinity of the medial branch. Once the tip of the needle was in contact with the bone, the needle pulled approximately 2 mm off the bone. After negative aspiration of blood with CSF and confirmation of AP as well as oblique view, a total of 16 mL of preservative-free 0.25% Marcaine with 80 mg of Depo- Medrol was injection in divided doses between those 8 levels. The needles were then removed intact. The patient experienced no signs or symptoms intrathecal, intravascular injection. The patient experienced no paraesthesia. The procedure was completed without any apparent difficult, any complication. The patient appeared to tolerate well. ASSESSMENT AND PLAN: This is a 58-year-old male with Lumbosacral spondylosis, lumbosacral degenerative disc disease, and lumbar facet arthropathy, status post bilateral lumbar facet steroid injection L3 through S1. The patient will continue his current medications. The patient will follow in approximately 2 weeks for reevaluation.
== END 2018-08-12 11:31 | disposition home or self-care (01) ==
LOC: SDC 08:09 → ACINP 09:13
PROVIDERS: Family Provider Family Medicine Geriatric Medicine; PCP Family Medicine Geriatric Medicine; Referring Provider Anesthesiology Pain Medicine; Visit Provider Anesthesiology Pain Medicine
PROC: 3E0T3BZ Introduction of Anesthetic Agent into Peripheral Nerves and Plexi, Percutaneous Approach (ICD-10-PCS; CPT 64493; principal; 2018-08-12 10:05)
DX: M47.817 Spondylosis without myelopathy or radiculopathy, lumbosacral region (principal); M51.37 Other intervertebral disc degeneration, lumbosacral region; M51.36 Other intervertebral disc degeneration, lumbar region; M46.96 Unspecified inflammatory spondylopathy, lumbar region; F32.9 Major depressive disorder, single episode, unspecified; I10 Essential (primary) hypertension; J44.9 Chronic obstructive pulmonary disease, unspecified
CPT/HCPCS: 01935; 64493; 64494; 64483; 72110; J7120

== ENCOUNTER → 2018-08-29 | Outpatient (CLI) | payer MEDICARE, SELFPAY ==
[2018-08-12 09:26] VITALS: BMI 65.7
[2018-08-29 15:30] LABS: Absolute Lymphocyte Count 1.03 X10^3/ul (0.83-4.51); Absolute Neutrophil Count 5.3 X10^3/uL (2.0-7.7); Basophil# 0.02 X10^3/uL; Basophil% 0.3 % (0-1); Eosinophil# 0.15 X10^3/uL; Hematocrit 43.2 % (40-54); Hemoglobin 14.3 g/dl (13.0-16.5); Lymphocyte # 1.03 X10^3/ul (4.0); Mean Corp Hgb Conc 33.1 g/gl (32-36); Mean Corpuscular Hgb 34.7 pg (27.0-32.0); Mean Corpuscular Volume 104.9 fL (80-94); Mean Platelet Vol. 10.9 fl (6.2-12.0); Monocyte# 0.81 X10^3/uL; Neutrophil # 5.34 X10^3/uL (2.7-7.7); Neutrophil % 72.6 % (47-70); Platelet Count 153 K/mm3 (150-450); RBC Distribution Width CV 14.8 % (11.6-14.6); RBC Distribution Width SD 56.4 fl (35.1-43.9); Red Blood Count 4.12 M/mm3 (4.6-6.2); White Blood Count 7.4 K/mm3 (4.4-11.0)
[2018-08-29 15:34] LABS: POSITIVE COUNT NO; POSITIVE DIFFERENTIAL NO; POSITIVE MORPHOLOGY NO
[2018-08-29 15:45] LABS: ALB/GLOB Ratio 0.9 RATIO (0.9-2.4); AST(SGOT) 23 U/L (15-37); Alanine Aminotransfer ALT/SGPT 29 U/L (16-61); Albumin, Serum 3.5 g/dL (3.2-5.0); Alkaline Phosphatase 97 U/L (45-117); Anion Gap 11 (5-15); BUN 28 mg/dL (7-18); BUN/Creat Ratio 28.8 RATIO (10-20); Calcium,Total 9.3 mg/dL (8.5-10.1); Chloride 107 mmol/L (98-107); Creatinine, Serum 0.97 mg/dL (0.70-1.30); EST Glomerular Filtration Rate 84 mL/min (>60); Est Glom Filt Rate - Afr Amer 102 mL/min (>60); Glucose 80 mg/dL (74-106); PSA,Total - Annual Screen 0.86 ng/mL (0.00-4.00); Potassium 4.6 mmol/L (3.5-5.1); Protein, Total 7.5 g/dL (6.4-8.2); Sodium Level 141 mmol/L (136-145); Thyroid Stim Hormone (TSH) 3.14 uIU/mL (0.358-3.74)
== END | disposition home or self-care (01) ==
LOC: POLAB3 14:33
PROVIDERS: Family Provider Family Medicine Geriatric Medicine; PCP Family Medicine Geriatric Medicine; Visit Provider Family Medicine Geriatric Medicine
DX: I10 Essential (primary) hypertension (principal); Z12.5 Encounter for screening for malignant neoplasm of prostate
CPT/HCPCS: 36415; 80053; 84153; 84443; 85025; G0103

== ENCOUNTER 2018-11-04 13:55 | Outpatient (RCR) | payer MEDICARE, SELFPAY ==
[2018-08-12 09:26] VITALS: BMI 65.7
--- NOTE | 2018-11-04 14:43 | HP.PTEVAL_ITS ---
Patient's Visit Information ZAIN VILLARREAL is a 58 year old M referred to Physical Therapy by Esteban Tim MD with a diagnosis of Chronc Systolic Heart Failure. Date of Evaluation: 11/04/18 Physical Therapist: Sally Nicole DPT - Visit Plan Plan: Evaluated for lift chair- will fax to appropriate green party. - Subjective Findings: Here for a lift chair evaluation. [facility] going [facility] construction sales representative named Camryn who reports it is required for MD and PT to fax an evaluation to her. He currently uses his FWW in his home and he has difficulty getting up from his current lounge chair. It's in bad shape and does not have a lift. He tries to go out 1x a week to the [facility] on Fridays- has a van service- uses his walker to get in/out. But feels he has gotten much slower and requires more work. His decreased mobility has been gradual over the last 3-4 years. Has been seeing Dr. Montgomery who reports his BMI is to high to perform bilateral total knee replacements. He is seeing Dr. Subramanian and PCP Dr. Tim- for everything including his knees. Most limiting factor to get out of his chair is obesity and bilateral knee pain. Has an aid that comes on Sunday, Sunday, Sun and sat AM for 3 hours each- bathing, dressing, cooking, cleaning and grocery shopping. Is very sedentary- is able to get up and go to the restroom but that is basically it. Has had 2 falls this week- had to have the squad come and pick him up- but did not have to take him to the hospital. The pain is the worst in the knees 9/10 at the worst and is aggravated by being up on them and getting up from sitting down- Eases by resting and sitting- Best pain level is a 4/10. Pain is constant and is located mostly in the knees. Does have N/T in the toes bilateral but that is not new. Lives alone single story apt- no stairs to enter. Does have family support as needed. Sleeps in a hospital bed with a trapez PMHx:OA, CHf, COPD, phlebitis, ulcers, gout, obstructive sleep apnea, jenkins parkinsons, ankle fx, gastric sleeve/mesh, debrillator. Meds: ambien, amiodarone, asprin, atenolol, buproplon, carveditol, docusate sodium doxycycline, entresto, laxix, lorazepam, magnesium, nitroglycerine, omeprazole, oxycodone, sertraline, sulfasalazine, tizanidine, voltaran, zolpidem. Height 5'6 Weight: 427 lbs.Fax eval to: [phone] Camryn Garcia - Objective Posture: FH, RS, increased kyphosis- pt is obese. Gait: antalgic- leans heavily on FWW with a step to gait pattern- crepetis with each step loud enough for PT to hear- slow almaz- 20 feet in 2 minutes. Sit to Stand: 2 reps in 1 min with significant difficulty. ROM and Strength: WFL as he is able to carry around his weight. Sensation: diminished in LE. Balance: sitting- fair standing: poor both static and dynamic. Does not stand without UE A from walker - Rehabilitation Potential Physical Therapy Diagnosis: Patient presents with hypomobility- he has decreased ability to perform ADL's. Rehabilitation Potential: Fair - Anticipated Interventions Thank you for the opportunity to evaluate your patient. For Medicare and Medicare HMO plans, please review the plan of care and approve it. It will need to be FAXED BACK to us at [phone] for Medicare purposes. For Medicare only, by signing this I certify the plan of care. Please let me know if there are questions or concerns regarding this plan of care. Physician Signature: Date:
--- NOTE | 2018-12-03 11:16 | HP.PTDCSUM ---
HP - PT D/C Summary It has been my pleasure to treat ZAIN VILLARREAL under orders from Esteban Tim MD, for the diagnosis of [facility] Systolic Heart Failure for a total of 1 visit(s). Discharge Date: 11/04/18 Please see the following information for a summary of their discharge status. - Plan Plan: Evaluated for lift chair- will fax to appropriate constitution party. - D/C Information Discharge Comments: Discharge- evaluation for lift chair If there are questions or concerns regarding this patient's physical therapy, please feel free to call me at [phone]. Thank you for the referral of this patient. Sincerely, SVITLANA OteroT
== END 2018-11-04 19:00 | disposition home or self-care (01) ==
LOC: PT 13:55
PROVIDERS: Family Provider Family Medicine Geriatric Medicine; PCP Family Medicine Geriatric Medicine; Referring Provider Family Medicine Geriatric Medicine; Visit Provider Family Medicine Geriatric Medicine
DX: I50.22 Chronic systolic (congestive) heart failure (principal); E66.01 Morbid (severe) obesity due to excess calories; M17.9 Osteoarthritis of knee, unspecified; R52 Pain, unspecified
CPT/HCPCS: 97162

== ENCOUNTER 2018-11-05 13:54 | Inpatient (IN) | payer MEDICARE, SELFPAY ==
[2018-08-12 09:26] VITALS: BMI 65.7
[2018-11-05] VITALS (10 sets, daily range): BP systolic 90–108; BP diastolic 48–70; PULSE 54–72; RESP 12–26; TEMP 36.4–36.7; O2SAT 96–99; BMI 79.5; BMI 77.0
--- NOTE | 2018-11-05 14:41 | RAD_ITS ---
STUDY: X-RAY CHEST REASON FOR EXAM: Male, 58 years old. Shortness of breath/dyspnea. TECHNIQUE: Single AP portable view of the chest. COMPARISON: Comparison is made with prior study dated March 13, 2017. FINDINGS: Basilar congestion and a mild degree of CHF. There is no demonstrated pleural abnormality. There is severe cardiac enlargement. A left-sided unipolar pacemaker is seen. Normal mediastinum and oumou. Normal visualized pulmonary arteries. Normal visualized aortic arch and descending thoracic aorta. There are diffuse degenerative changes of the visualized thoracic spine. Normal visualized ribs, clavicles, and shoulders. There is no demonstrated abnormality of the visualized soft tissue structures of the upper abdomen. RAD/Chest 1 View (Portable) IMPRESSION: Cardiomegaly and CHF. Electronically Signed: Chino Crowder, at 15:09 EDT , Service support ,
--- NOTE | 2018-11-05 14:42 | ED.DCSUM_ITS ---
- ER Visit Summary Date of Service: 11/05/18 Chief Complaint: Weakness History of Present Illness: The patient is a 58 M presenting with generalized weakness and frequent falls. Patient states he fell on Sunday and Sunday. He states he did not hit his head or lose consciousness. He is not on anticoagul ants. He has chronic pain secondary to rheumatoid arthritis. He is morbidly obese. He was evaluated by physical therapy yesterday for a home lift chair. He is on oxygen as needed at home. He has home health that comes Sunday and Sunday. He states that he may benefit from home health daily. Denies fever, chest pain, shortness of breath, abdominal pain. He denies other complaints. Physical Examination: Vitals are stable. Patient is afebrile. Alert no acute distress. HEENT exam is unremarkable. Neck is supple. Lungs are clear and equal bilaterally. No distress Heart is regular rate and rhythm. Abdomen is soft nontender obese Extremities symmetric edema, normal distal pulses Skin is warm and dry. No focal neurologic deficit. Remainder of exam is unremarkable. Emergency Department Course and Treatment: Chest x-ray shows cardiomegaly, CHF. CBC shows platelet 147. Chemistries show potassium 5.6, BUN 42, creatinine 1.39. Urinalysis shows 0-5 white blood cells. BNP 983.8, troponin is negative. Patient was given Lasix IV. Discussed with the hospitalist for admission. Disposition: Admission Impression: CHF, failure to thrive This note was generated with [employer] dictation software. It may contain incorrect words, spelling, and punctuation that were not noted in review of the chart prior to signing ED Disposition - Plan for ED Patient: Referrals: Esteban Tim Chi, MD [Primary Care Provider] -
[2018-11-05 15:07] LABS: Absolute Lymphocyte Count 0.63 X10^3/uL (0.83-4.51); Absolute Neutrophil Count 4.7 X10^3/uL (2.0-7.7); Basophil# 0.04 X10^3/uL; Basophil% 0.6 % (0-1); Eosinophil# 0.27 X10^3/uL; Eosinophils% 4.2 % (0-5); Hematocrit 43.1 % (40-54); Lymphocyte # 0.63 X10^3/ul (4.0); Lymphocyte % 9.7 % (19-41); Mean Corp Hgb Conc 32.5 g/dL (32-36); Mean Corpuscular Hgb 35.2 pg (27.0-32.0); Mean Corpuscular Volume 108.3 fL (80-94); Mean Platelet Vol. 10.5 fl (6.2-12.0); Monocyte# 0.83 X10^3/uL; Monocyte% 12.8 % (0-10); NRBC Flagged by Analyzer 0 % (0-5); Neutrophil % 72.2 % (47-70); Platelet Count 147 K/mm3 (150-450); RBC Distribution Width CV 15.7 % (11.6-14.6); RBC Distribution Width SD 61.5 fl (35.1-43.9); Red Blood Count 3.98 M/mm3 (4.6-6.2); White Blood Count 6.5 K/mm3 (4.4-11.0)
[2018-11-05 15:17] LABS: Anion Gap 3 (5-15); BUN 42 mg/dL (7-18); BUN/Creat Ratio 30.2 RATIO (10-20); Chloride 107 mmol/L (98-107); Creatinine, Serum 1.39 mg/dL (0.70-1.30); EST Glomerular Filtration Rate 56 mL/min (>60); Est Glom Filt Rate - Afr Amer 67 mL/min (>60); Estimated Creatinine Clearance 52.27 ml/min; Glucose 88 mg/dL (74-106); Potassium 5.6 mmol/L (3.5-5.1); Sodium Level 136 mmol/L (136-145)
[2018-11-05 15:45] LABS: Bacteria 0 SEEN /hpf (None Seen); Red Blood Cells-Urine 0 SEEN /hpf (0-5)
[2018-11-05 15:46] LABS: Color, Urine Yellow (Yellow); Glucose, Dipstick Normal (Normal); Ketone-Dipstick Negative (Negative); Leukocyte Esterase-Dipstick 25 /ul (Negative); Nitrite-Dipstick Negative (Negative); Occult Blood-Urine Negative /ul (Negative); Protein-Dipstick 100 mg/dl (Negative); Urine Clarity Clear (Clear); Urine Urobilinogen 1 mg/dl (Normal)
[2018-11-05 15:49] LABS: Urine Bilirubin Dipstick 1 mg/dL (Negative)
[2018-11-05 15:53] LABS: Mucous, Urine 1+ /hpf (<or=2+); Squamous Epithelial Cells - UA 0-5 SEEN /hpf (0-5); White Blood Cells 0-5 SEEN /hpf (0-5)
[2018-11-05 15:54] LABS: Hyaline Cast 10-25 SEEN /lpf (0-5)
--- NOTE | 2018-11-05 15:57 | EKG12_ITS ---
Test Reason : DIZZINESS Blood Pressure : / mmHG Vent. Rate : 058 BPM Atrial Rate : 063 BPM P-R Int : 000 ms QRS Dur : 004 ms QT Int : 496 ms P-R-T Axes : 000 000 -03 degrees QTc Int : 486 ms Atrial Flutter Indeterminate axis Pulmonary disease pattern ST & T wave abnormality, consider anterolateral ischemia Abnormal ECG Confirmed by RONNA BROOKS ([id number]), story editor EDVIN VAN ([id number]) on 11/07/2018 2:30:39 PM Referred By: Joanna Monk Confirmed By:RONNA BROOKS
[2018-11-05 16:09] LABS: BNP,B-Type NATRIURETIC PEPTIDE 983.8 pg/mL (0-100)
--- NOTE | 2018-11-05 16:10 | CM.ED ---
Social Work Consult: Placement Informant: Dr. Sidhu Met with patient in room. Patient stating to live alone in a 1-story apartment. Patient ambulates with the aide of a walker. Patient receives aides through [place] [employer] program every Mon/Tues/Sat for 3 hours. Aides assist patient with all housekeeping and shower needs. Patient can manage own meals. Patient had a prior 2 year stay at [facility]. Patient has been out of [facility] for the past 5-6 years. Patient stating to fall some at home. EMS stating to make several calls to patient home to assist with getting up after a fall. Patient reporting to be diagnosed with depression and anxiety. Patient denies any current counseling services or inpatient hospitalization. Patient denies any suicidal thoughts or history of. Patient stating to hope to get admitted to hospital to get this water off. At first patient is reluctant to discuss fdc placement. Patient later stating to be interested in the [facility]. This director of social services collaborating further with Dr. Sidhu, patient to be admitted to acute hospital setting due to water retention. This director of social services giving hand off to acute director of social services staff. Abiola NAIK, KAREEM
--- NOTE | 2018-11-05 16:59 | NURSING ---
PCU CHF, FAILURE TO THRIVE WHITE
[2018-11-05] MEDS: Furosemide 40 MG/4 ML Vial IV (17:21)
--- NOTE | 2018-11-05 17:33 | PCM.HP.STD ---
Problem List (1) Acute exacerbation of CHF (congestive heart failure) Status: Acute (2) Rotator cuff tear Status: Chronic (3) DDD (degenerative disc disease), lumbosacral Status: Chronic (4) Anxiety and depression Status: Chronic (5) History of DVT (deep vein thrombosis) Status: Chronic (6) TEX (obstructive sleep apnea) Status: Chronic (7) Hyperlipidemia Status: Chronic (8) Benign essential hypertension Status: Chronic (9) Cardiomyopathy Status: Chronic (10) Super obesity Status: Chronic (11) WPW (Staak-Yofkvtews-Mzaai syndrome) Status: Chronic (12) Atrial fibrillation Status: Chronic (13) COPD (chronic obstructive pulmonary disease) Status: Chronic History of Present Illness Date of Admission: 11/05/18 Chief Complaint: weakness The patient is a 58 year old M with pmhx of systolic CHF with cardiomyopathy, defibrillator in place, TEX, super morbid obesity, COPD, paroxysmal atrial fibrillation, hx Parikh parkinson white syndrome s/p ablation, hx DVT, CKDIII, HTN, HLD, who presented to the ER with c/o increased weakness and falls. He has been falling many times recently and has little ability to walk now. He also has had 50 lb weight gain in the last two weeks. He stopped taking lasix two days ago because it is difficulty for him to live a life and having frequent urination and incontinence. He has no increased SOB. He is not hypoxic in the ER. He appears to have acute on chronic CHF with CXR demonstrating CHF, increased weight gain, and increased LE edema. He has no CP, tightness, pressure, dizziness, LH. He otherwise denies illness, no cough, abdominal pain, fevers/chills, N/V/D. His EKG shows SR with PVCs, AV dissociation, junctional rhythm. He does not take blood thinners as he had bleeding in his lungs and stomach on warfarin in the past. [] Past Medical History Past Medical History (Chronic Problems): Chronic Problems Primary osteoarthritis of right shoulder (Chronic) DDD (degenerative disc disease), lumbosacral (Chronic) Radiculopathy of lumbosacral region (Chronic) Spondylosis of lumbosacral region without myelopathy or radiculopathy (Chronic) Rotator cuff tear (Chronic) COPD (chronic obstructive pulmonary disease) (Chronic) Anxiety and depression (Chronic) History of DVT (deep vein thrombosis) (Chronic) Diastolic heart failure (Chronic) TEX (obstructive sleep apnea) (Chronic) Hyperlipidemia (Chronic) Benign essential hypertension (Chronic) Rheumatoid arthritis (Chronic) dilated right ventricle (Chronic) Cardiomyopathy (Chronic) Super obesity (Chronic) WPW (Rzicl-Bgaoahcpd-Egorb syndrome) (Chronic) Atrial fibrillation (Chronic) Allergies latex Allergy (Verified 11/05/18 13:58) Rash warfarin sodium [From Coumadin] Adverse Reaction (Verified 11/05/18 13:58) Other Home Medications: Ambulatory Orders Medication Instructions Recorded Aspirin [Aspirin, Baby] 81 mg PO DAILY@0800 05/02/14 Bupropion HCl 100 mg PO DAILY 05/02/14 Magnesium Oxide [Mag-Ox 400] 400 mg PO DAILY 05/02/14 Sulfasalazine [Azulfidine] 500 mg PO TID 05/02/14 Nitroglycerin (INPATIENT USE) 0.4 mg SUBLINGUAL Q5M PRN 07/17/14 [Nitrostat] Senna [Senokot] 1 tablet PO BID 07/17/14 Cholecalciferol (Vitamin D3) 3,000 unit PO DAILY 05/08/18 [Vitamin D3] Cyanocobalamin (Vitamin B-12) 1,000 mcg PO DAILY 05/08/18 [Vitamin B-12] Fluticasone Furoate [Arnuity 1 puff IH DAILY@1200 05/08/18 Ellipta] Furosemide [Lasix] 40 mg PO DAILY 05/08/18 Lorazepam [Ativan] 0.5 mg PO QHS 05/08/18 Lorazepam [Ativan] 1 mg PO DAILY 05/08/18 Multivitamin with Minerals 1 each PO DAILY 05/08/18 [Multiple Vitamin] Oxybutynin Chloride [Ditropan Xl] 10 mg PO DAILY 05/08/18 Sacubitril/Valsartan 97-103 mg 1 tab PO BID 05/08/18 [Entresto 97 mg-103 mg Tablet] Amiodarone HCl 400 mg PO DAILY 11/05/18 Carvedilol 12.5 mg PO BID 11/05/18 Oxycodone HCl 10 mg PO BID 11/05/18 Sertraline HCl [Zoloft] 50 mg PO DAILY 11/05/18 Sertraline HCl [Zoloft] 100 mg PO DAILY 11/05/18 Zolpidem Tartrate 10 mg PO QHS 11/05/18 Surgical History: cholecystectomy, herniorrhaphy, - - Cardiac ablation x 2, Defib placement, Cholecystectomy, LLE surgery s/p trauma w/ hardware removal later, gastric sleeve surgery Psychiatric History: Anxiety, Depression Lives: Roommate Smoking Status: Never smoker Tobacco Use: Non-smoker Alcohol: None Drugs: None - *Family History Maternal History Items: Heart Disease, Hypertension Paternal History Items: Heart Disease, Hypertension Review of Systems Constitutional: Reports: Weakness, Fatigue. Denies: Chills, Fever, Weight Change HEENT: Denies: Head Aches, Sinus Congestion, Sinus Drainage Cardiovascular: Reports: Edema. Denies: Chest Pain, Chest Tightness, Heaviness, Light Headedness, Palpitations, Syncope Respiratory: Denies: Cough, Shortness of Breath, Shortness of breath at rest, Sputum production, Wheezing Gastrointestinal: Denies: Abdominal Pain, Diarrhea, Nausea, Vomiting Genitourinary: Denies: Dysuria Musculoskeletal: Denies: Joint Pain, Joint Tenderness Skin: Denies: Rash, Wounds Neurological: Denies: Numbness, Tingling, Focal weakness Psychiatric: Denies: Anxiety, Depression, Homicidal Ideations, Suicidal Ideations Hematologic/ Lymphatic: Denies: Easy Bruising, Easy Bleeding VTE Information - Inpt Only VTE Present on Admission: No VTE Mechan Device Prophylaxis: None VTE Pharm Prophylaxis ordered?: Yes - Physical Exam General: Alert, Oriented x3, Cooperative HEENT: Atraumatic, PERRLA, EOMI, Normocephalic Neck: Supple, No JVD, Negative Carotid Bruits Lungs: Diminished Cardiovascular: Regular rate, No murmurs Abdomen: Bowel Sounds Present, Soft, Non Tender, Obese Extremities: Capillary Refill Less than 3 Seconds, Edema Skin: No rashes, No breakdown Musculoskeletal: No Tenderness to Palpation of Joints or Extremities Neurological: Cranial nerves II-XII grossly intact Psych/Mental Status: Normal Affect, Appropriate, Alert and oriented to time, place, person, mood and affect Vital Signs Temp Pulse Resp BP Pulse Ox 98.0 F 54 L 26 H 96/70 99 11/05/18 13:55 11/05/18 17:02 11/05/18 17:02 11/05/18 17:02 11/05/18 17:02 Oxygen Flow Rate (L/min) 4 Oxygen Delivery Method Nasal Cannula Weight: 492 lb 11.73 oz Body Mass Index (BMI) 79.5 Laboratory Tests Past 24 Hrs 11/05/18 11/05/18 11/05/18 14:59 14:59 14:59 WBC 6.5 RBC 3.98 L Hgb 14.0 Hct 43.1 MCV 108.3 H MCH 35.2 H MCHC 32.5 RDW Std Deviation 61.5 H RDW Coeff of Florina 15.7 H Plt Count 147 L MPV 10.5 Immature Gran % (Auto) 0.500 Neut % (Auto) 72.2 H Lymph % (Auto) 9.7 L [place] % (Auto) 12.8 H Eos % (Auto) 4.2 Baso % (Auto) 0.6 Absolute Neuts (auto) 4.7 Absolute Lymphs (auto) 0.63 L Nucleated RBC % 0 Sodium 136 Potassium 5.6 H Chloride 107 Carbon Dioxide 26.0 Anion Gap 3 L BUN 42 H Creatinine 1.39 H Estim Creat Clear Calc 52.27 Est GFR (MDRD) Af Amer 67 Est GFR (MDRD) Non-Af 56 L BUN/Creatinine Ratio 30.2 H Glucose 88 Calcium 9.0 Troponin I < 0.015 B-Natriuretic Peptide Urine Color Urine Clarity Urine pH Ur Specific [place] Urine Protein Urine Glucose (UA) Urine Ketones Urine Occult Blood Urine Nitrite Urine Bilirubin Urine Urobilinogen Ur Leukocyte Esterase Urine RBC Urine WBC Ur Squamous Epith Cells Urine Bacteria Hyaline Casts Urine Mucus 11/05/18 11/05/18 14:59 15:40 WBC RBC Hgb Hct MCV MCH MCHC RDW Std Deviation RDW Coeff of Florina Plt Count MPV Immature Gran % (Auto) Neut % (Auto) Lymph % (Auto) [place] % (Auto) Eos % (Auto) Baso % (Auto) Absolute Neuts (auto) Absolute Lymphs (auto) Nucleated RBC % Sodium Potassium Chloride Carbon Dioxide Anion Gap BUN Creatinine Estim Creat Clear Calc Est GFR (MDRD) Af Amer Est GFR (MDRD) Non-Af BUN/Creatinine Ratio Glucose Calcium Troponin I B-Natriuretic Peptide 983.8 H Urine Color Yellow Urine Clarity Clear Urine pH 5.0 Ur Specific [place] 1.020 Urine Protein 100 H Urine Glucose (UA) Normal Urine Ketones Negative Urine Occult Blood Negative Urine Nitrite Negative Urine Bilirubin 1 H Urine Urobilinogen 1 H Ur Leukocyte Esterase 25 H Urine RBC 0 SEEN Urine WBC 0-5 SEEN Ur Squamous Epith Cells 0-5 SEEN Urine Bacteria 0 SEEN Hyaline Casts 10-25 SEEN Urine Mucus 1+ Assessment/Plan All Active Problems Low TSH level (Acute) Acute exacerbation of CHF (congestive heart failure) (Acute) Community acquired pneumonia (Acute) COPD with acute exacerbation (Acute) 1. Acute systolic CHF exacerbation, ischemic cardiomyopathy - last echo EF 30% - repeat. Start IV lasix. Not taking home lasix last two days. Measure I/O, fluid restrict, sodium restrice, RHYS wrap. Monitor Renal function. Potassium mildly elevated should decrease with IV lasix. Hold valsartan. Check mag/tsh Cardiology C/s. Former pt of Dr. Pizarro, plans to follow with Dr. Sal in [place]. Defibrillator in place. -BNP elevated, CXR with CHF, BL LE edema, 50 lb weight gain over two weeks. 2. Paroxysmal Afib - EKG with AV dissociation, junctional rhythm, PVCs, some bradycardia in the ER. C/s cardiology. Hx WPW syndrome with prior ablations. Not on OAC as he had bleeding in his lungs and stomach while on coumadin. -Pt on coreg and amiodarone. hold parameters in place with bradycardia. 3. Hx DVT - again not on OAC due to reasons above 4. TEX - Bipap qhs - 06/12 with 2lpm bleed in. 5. hx COPD - no exacerbation - prn duonebs 6. Depression/Anxiety - ativan, buproion, ambien, zoloft - ambien/ativan with caution given his CHF and Renal disease 7. CKDIII - trend 8. Debility / Falls - PTOT. 9. Morbid obesity - dietary consult. Prior gastric sleeve surgery. 10. BL knee osteoarthritis - contributing to #8, has been told he cannot have surgery 2/2 #9. DVT ppx: Heparin DC Planning: Many falls recently, may need placement. This patient was seen by Barry Farias PA-C under the supervision of Doctor Aleshia.
[2018-11-05 18:27] LABS: Magnesium 2.2 mg/dL (1.6-2.6); Thyroid Stim Hormone (TSH) 4.74 uIU/mL (0.358-3.74)
[2018-11-05] MEDS: Budesonide Respules 0.5 MG/2 ML AMPUL.NEB. INHALATION (19:11)
[2018-11-05] MEDS: Carvedilol 12.5 MG Tablet PO (22:00)
[2018-11-05] MEDS: Enoxaparin 40 MG/0.4 ML Syringe SC (22:00)
[2018-11-05] MEDS: Nystatin Powder 15gm Bottle 1 APPLIC TOPICAL (22:00)
[2018-11-05] MEDS: Senna Tablet 1 TABLET PO (22:01)
[2018-11-06] VITALS (17 sets, daily range): BP systolic 98–136; BP diastolic 43–89; PULSE 39–73; RESP 14–20; TEMP 36.6–37.1; O2SAT 92–100
--- NOTE | 2018-11-06 05:55 | EKG12_ITS ---
Test Reason : AM Blood Pressure : / mmHG Vent. Rate : 083 BPM Atrial Rate : 214 BPM P-R Int : 000 ms QRS Dur : 006 ms QT Int : 218 ms P-R-T Axes : 000 000 240 degrees QTc Int : 256 ms Atrial Flutter with a competing junctional pacemaker Indeterminate axis Right bundle branch block Pulmonary disease pattern , low voltage Nonspecific ST and T wave abnormality Abnormal ECG When compared with ECG of 05-NOV-2018 16:08, MANUAL COMPARISON REQUIRED, DATA IS UNCONFIRMED Confirmed by RONNA BROOKS ([id number]), editorial specialist EDVIN VAN ([id number]) on 11/07/2018 2:56:47 PM Referred By: Joanna Monk Confirmed By:RONNA BROOKS
--- NOTE | 2018-11-06 05:55 | ECHOCS_ITS ---
Reason For Study: CHF Procedure This was a 2D Doppler, Color Flow transthoracic echocardiogram. The study was technically difficult. Patient had to be scanned in his chair. Exam performed portable in patient room. Left Ventricle Severely dilated left ventricle. The estimated ejection fraction is 35 %. There is moderate to severe global hypokinesis of the left ventricle. Right Ventricle Normal size and thickness. ICD or pacer leads identified within the right ventricle. Normal systolic function. Mitral Valve The mitral valve is structurally normal. No prolapse or stenosis seen. Tricuspid Valve Normal tricuspid valve. Mild (1+) tricuspid valve insufficiency. Right ventricular systolic pressure estimated to be 33 mmHg. Aortic Valve Trisinus/trileaflet aortic valve. Pulmonic Valve The pulmonic valve is not well visualized. Great Vessels Normal aortic root. Normal arch. The inferior vena cava is dilated. No collapse of the inferior vena cava. Pericardium/Pleural No pericardial effusion. Medication Diluted definity 3ml given slow IV push to enhance endocardial definition. MMode/2D Measurements & Calculations LVIDd: 5.8 cm IVSd: 1.1 cm Ao root diam: 4.3 cm LVIDs: 4.8 cm LVPWd: 1.4 cm FS: 17.6 % LA dimension(2D): 6.1 cm Doppler Measurements & Calculations MV E max christos: 142.9 cm/sec Ao V2 max: 149.1 cm/sec LV V1 max: 117.9 cm/sec Ao max P.0 mmHg LV V1 max P.7 mmHg PA V2 max: 97.2 cm/sec TR max christos: 211.7 cm/sec TR max P.9 mmHg Interpretation Summary Severely dilated left ventricle. The estimated ejection fraction is 35 %. There is moderate to severe global hypokinesis of the left ventricle. Mild (1+) tricuspid valve insufficiency. Right ventricular systolic pressure estimated to be 33 mmHg, but may be underestimated. Pt appears to be in atrial flutter. Compared to echo report dated 06/20/2017, no appreciable changes noted. Ordering Physician: Joanna Monk Referring Physician: Joanna Monk Performed By: Radha Emery RDCS
[2018-11-06 05:59] LABS: Absolute Lymphocyte Count 0.66 X10^3/uL (0.83-4.51); Absolute Neutrophil Count 3.2 X10^3/uL (2.0-7.7); Basophil# 0.03 X10^3/uL; Basophil% 0.6 % (0-1); Eosinophil# 0.24 X10^3/uL; Hematocrit 38.1 % (40-54); Hemoglobin 12.7 g/dL (13.0-16.5); Lymphocyte # 0.66 X10^3/ul (4.0); Lymphocyte % 13.8 % (19-41); Mean Corp Hgb Conc 33.3 g/dL (32-36); Mean Corpuscular Hgb 35.1 pg (27.0-32.0); Mean Corpuscular Volume 105.2 fL (80-94); Mean Platelet Vol. 10.6 fl (6.2-12.0); Monocyte# 0.66 X10^3/uL; Monocyte% 13.8 % (0-10); NRBC Flagged by Analyzer 0 % (0-5); Neutrophil # 3.19 X10^3/uL (2.7-7.7); Neutrophil % 66.6 % (47-70); Platelet Count 110 K/mm3 (150-450); RBC Distribution Width CV 15.5 % (11.6-14.6); Red Blood Count 3.62 M/mm3 (4.6-6.2); White Blood Count 4.8 K/mm3 (4.4-11.0)
[2018-11-06] MEDS: Nystatin Powder 15gm Bottle 1 APPLIC TOPICAL ×3 (06:04→22:17)
[2018-11-06 06:18] LABS: Anion Gap 10 (5-15); BUN 36 mg/dL (7-18); BUN/Creat Ratio 29.8 RATIO (10-20); Calcium,Total 8.6 mg/dL (8.5-10.1); Chloride 111 mmol/L (98-107); Cholesterol 90 mg/dL (200); Creatinine, Serum 1.21 mg/dL (0.70-1.30); EST Glomerular Filtration Rate 65 mL/min (>60); Est Glom Filt Rate - Afr Amer 79 mL/min (>60); Estimated Creatinine Clearance 60.05 ml/min; Glucose 76 mg/dL (74-106); High Density Lipoprotein 34 mg/dL; Sodium Level 141 mmol/L (136-145); Triglycerides 69 mg/dL; Very Low Density Lipoprotein 14 mg/dL (5-40)
[2018-11-06] MEDS: Budesonide Respules 0.5 MG/2 ML AMPUL.NEB. INHALATION ×2 (06:59→18:54)
[2018-11-06] MEDS: LORazepam 1 MG Tablet PO (08:19)
[2018-11-06] MEDS: Sertraline 50 MG Tablet PO (08:19)
[2018-11-06] MEDS: sulfaSALAzine 500 MG Tablet PO ×3 (08:19→16:34)
[2018-11-06] MEDS: buPROPion 100 MG Tablet PO (08:19)
[2018-11-06] MEDS: Amiodarone 200 MG Tablet PO (08:19)
[2018-11-06] MEDS: Sertraline 100 MG Tablet PO (08:19)
[2018-11-06] MEDS: Magnesium Oxide 400 MG Tablet PO (08:20)
[2018-11-06] MEDS: Aspirin 81 MG TAB.CHEW PO (08:20)
[2018-11-06] MEDS: Senna Tablet 1 TABLET PO ×2 (08:20→22:17)
[2018-11-06] MEDS: Tolterodine Tartrate 2 MG CAP.SA PO (08:20)
[2018-11-06] MEDS: Enoxaparin 40 MG/0.4 ML Syringe SC ×2 (08:20→22:16)
--- NOTE | 2018-11-06 09:22 | CON.PCM_ITS ---
Problem List (1) Hyperlipidemia Status: Chronic (2) Benign essential hypertension Status: Chronic (3) Cardiomyopathy Status: Chronic (4) Super obesity Status: Chronic (5) Acute exacerbation of CHF (congestive heart failure) Status: Acute (6) WPW (Kyhcl-Eyoxlzare-Iuzvb syndrome) Status: Chronic (7) Atrial fibrillation Status: Chronic Reason for Consult Date of Consultation: 11/06/18 Reason for Consultation: Acute on Chronic CHF, PAF, WPW, Cardiomyopathy, HTN, and HLD History of Present Illness: The patient is a 58 year old M who has a previous cardiac history of cardiomyo miller status post ICD placement, paroxysmal atrial fibrillation, Xwbua-Vlqpuvtkt-Bvcfi status post 2 ablation procedures, hypertension, hyperlipidemia. He also has a history of morbid obesity, COPD, obstructive sleep apnea, GI bleed, and pulmonary hemorrhage. Patient states for the last 2 weeks has had new onset of generalized weakness. Prior to presenting to Emergency Department he had 2 falls. He denies any known syncope. He states his first fall was getting out of the bed. His second fall was when going from such position to standing. EMS was called to help. He is brought to the Emergency Departmentt. Upon evaluation the Emergency Department his chest x-ray showed pulmonary congestion and his BNP was elevated at 983.8. His troponin was negative. His EKG showed underlying atrial flutter at a slow rate. He was admitted for further evaluation and diuresis. Cardiology was consulted for further recommendation. Past Medical History Allergies/Adverse Reactions: Allergies latex Allergy (Verified 11/05/18 18:06) Rash warfarin sodium [From Coumadin] Adverse Reaction (Verified 11/05/18 18:06) Other Home Medications: Ambulatory Orders Medication Instructions Recorded Aspirin [Aspirin, Baby] 81 mg PO DAILY@0800 05/02/14 Bupropion HCl 100 mg PO DAILY 05/02/14 Magnesium Oxide [Mag-Ox 400] 400 mg PO DAILY 05/02/14 Sulfasalazine [Azulfidine] 500 mg PO TID 05/02/14 Nitroglycerin (INPATIENT USE) 0.4 mg SUBLINGUAL Q5M PRN 07/17/14 [Nitrostat] Senna [Senokot] 1 tablet PO BID 07/17/14 Cholecalciferol (Vitamin D3) 3,000 unit PO DAILY 05/08/18 [Vitamin D3] Cyanocobalamin (Vitamin B-12) 1,000 mcg PO DAILY 05/08/18 [Vitamin B-12] Fluticasone Furoate [Arnuity 1 puff IH DAILY@1200 05/08/18 Ellipta] Furosemide [Lasix] 40 mg PO DAILY 05/08/18 Lorazepam [Ativan] 0.5 mg PO QHS 05/08/18 Lorazepam [Ativan] 1 mg PO DAILY 05/08/18 Multivitamin with Minerals 1 each PO DAILY 05/08/18 [Multiple Vitamin] Oxybutynin Chloride [Ditropan Xl] 10 mg PO DAILY 05/08/18 Sacubitril/Valsartan 97-103 mg 1 tab PO BID 05/08/18 [Entresto 97 mg-103 mg Tablet] Amiodarone HCl 400 mg PO DAILY 11/05/18 Carvedilol 12.5 mg PO BID 11/05/18 Oxycodone HCl 10 mg PO BID 11/05/18 Sertraline HCl [Zoloft] 50 mg PO DAILY 11/05/18 Sertraline HCl [Zoloft] 100 mg PO DAILY 11/05/18 Zolpidem Tartrate 10 mg PO QHS 11/05/18 Past Medical History (Chronic Problems): Chronic Problems Primary osteoarthritis of right shoulder (Chronic) DDD (degenerative disc disease), lumbosacral (Chronic) Radiculopathy of lumbosacral region (Chronic) Spondylosis of lumbosacral region without myelopathy or radiculopathy (Chronic) Rotator cuff tear (Chronic) COPD (chronic obstructive pulmonary disease) (Chronic) Anxiety and depression (Chronic) History of DVT (deep vein thrombosis) (Chronic) Diastolic heart failure (Chronic) TEX (obstructive sleep apnea) (Chronic) Hyperlipidemia (Chronic) Benign essential hypertension (Chronic) Rheumatoid arthritis (Chronic) dilated right ventricle (Chronic) Cardiomyopathy (Chronic) Super obesity (Chronic) WPW (Kaluf-Eypmilmae-Twakj syndrome) (Chronic) Atrial fibrillation (Chronic) Surgical History: cholecystectomy, herniorrhaphy, - - Cardiac ablation x 2, Defib placement, Cholecystectomy, LLE surgery s/p trauma w/ hardware removal later, gastric sleeve surgery Psychiatric History: Anxiety, Depression - *Family History Maternal History Items: Heart Disease, Hypertension Paternal History Items: Heart Disease, Hypertension Lives: Roommate Smoking Status: Never smoker Tobacco Use: Non-smoker Alcohol: None Drugs: None Review of Systems - Review of Systems General: Reports: Fatigue. Denies: Fever Cardiovascular: Reports: Chest Discomfort at Rest - intermittent, Shortness of Breath with Exertion - intermittent, Peripheral Edema. Denies: Chest Discomfort, Chest Discomfort with Exertion, Chest Pressure, Chest Tightness, Chest Heaviness, Shortness of Breath, Shortness of Breath at Rest, PND, Palpitations, Lightheadedness, Dizziness, Near Syncope, Syncope Neurological: Reports: Falls, Weakness. Denies: Dizziness Subjectve: Patient seen and evaluated. He currently denies any chest pain or shortness of breath. Objective: Vital Signs Temp Pulse Resp BP Pulse Ox 97.8 F 68 16 102/43 L 96 11/06/18 08:12 11/06/18 08:12 11/06/18 08:12 11/06/18 08:12 11/06/18 08:12 Oxygen Flow Rate (L/min) 2 Oxygen Delivery Method Room Air Weight: 475 lb 1.538 oz Body Mass Index (BMI) 77.0 Intake and Output for Last 24 Hours 11/04/18 11/05/18 11/06/18 23:59 23:59 23:59 Intake Total 240 / 240 240 / 240 Output Total 1600 / 1600 75 / 75 Balance -1360 / -1360 165 / 165 General: Healthy Appearing, Awake, Alert, Oriented x 3, Cooperative, No Acute Distress, Obese HEENT: Atraumatic Oral: Moist Mucosa Neck: No JVD Lungs: Diminished Phuc Bases Cardiovascular: Irregular Rhythm, Normal S1, Normal S2, No Murmurs, No Rubs, No Gallops Vascular: No Carotid Bruits, Normal Radial Pulses, Normal Dorsalis Pedal Pulse Abdomen: Bowel Sounds Present, Soft Extremities: No Cyanosis, No Clubbing, Normal Capillary Refill, Bilateral Edema +1 Skin: No Rashes, No Breakdown Neurological: No Focal Motor or Sensory Deficit Psych/Mental Status: Appropriate, Normal Affect 11/05/18 14:59: WBC 6.5, RBC 3.98 L, Hgb 14.0, Hct 43.1, MCV 108.3 H, MCH 35.2 H , MCHC 32.5, Plt Count 147 L, MPV 10.5, Immature Gran % (Auto) 0.500, Neut % (Auto) 72.2 H, Lymph % (Auto) 9.7 L, [place] % (Auto) 12.8 H, Eos % (Auto) 4.2, Baso % (Auto) 0.6, Absolute Neuts (auto) 4.7, Nucleated RBC % 0 11/05/18 14:59: Sodium 136, Potassium 5.6 H, Chloride 107, Carbon Dioxide 26.0, Anion Gap 3 L, BUN 42 H, Creatinine 1.39 H, Est GFR (MDRD) Af Amer 67, Est GFR (MDRD) Non-Af 56 L, BUN/Creatinine Ratio 30.2 H, Glucose 88, Calcium 9.0 11/05/18 14:59: Troponin I < 0.015 11/05/18 14:59: B-Natriuretic Peptide 983.8 H 11/05/18 14:59: Magnesium 2.2 11/05/18 15:40: Urine Color Yellow, Urine Clarity Clear, Urine pH 5.0, Ur Specific [place] 1.020, Urine Protein 100 H, Urine Glucose (UA) Normal, Urine K etones Negative, Urine Occult Blood Negative, Urine Nitrite Negative, Urine Bilirubin 1 H, Urine Urobilinogen 1 H, Ur Leukocyte Esterase 25 H, Urine RBC 0 SEEN, Urine WBC 0-5 SEEN 11/05/18 18:24: Troponin I < 0.015 11/05/18 21:28: Troponin I < 0.015 11/06/18 05:45: WBC 4.8, RBC 3.62 L, Hgb 12.7 L, Hct 38.1 L, MCV 105.2 H, MCH 35.1 H, MCHC 33.3, Plt Count 110 L, MPV 10.6, Immature Gran % (Auto) 0.200, Neut % (Auto) 66.6, Lymph % (Auto) 13.8 L, [place] % (Auto) 13.8 H, Eos % (Auto) 5.0, Baso % (Auto) 0.6, Absolute Neuts (auto) 3.2, Nucleated RBC % 0 11/06/18 05:45: Sodium 141, Potassium 5.0, Chloride 111 H, Carbon Dioxide 20.0 L , Anion Gap 10, BUN 36 H, Creatinine 1.21, Est GFR (MDRD) Af Amer 79, Est GFR (MDRD) Non-Af 65, BUN/Creatinine Ratio 29.8 H, Glucose 76, Calcium 8.6, Triglycerides 69, Cholesterol 90, LDL Cholesterol 42, VLDL Cholesterol 14, HDL Cholesterol 34 L Rhythm: EKG: ECHO: 06/20/2017 Interpretation Summary Normal LV size. The estimated ejection fraction is 30 %. Moderately severe global left ventricular systolic dysfunction. Mild (1+) tricuspid valve insufficiency. Pulmonary artery systolic pressure is 33 mmHg. Stress Test: Cardiac Cath: PCI: CT Surgery: Holter monitor: EPS: PPM: CXR: Chest CT Scan: Assessment/Plan 1. Acute on chronic congestive heart failure Patient does acknowledge intermittent episodes of shortness of breath on exertion. Both his chest x-ray and laboratory evaluation are consistent with congestive heart failure. He will continue with IV Lasix and fluid restriction. He will undergo a repeat echocardiogram to evaluate ejection fraction, valvular status, and wall motion. His previous echocardiogram in May 2017 showed ejection fraction of 30%. His troponin has been negative x3. His outside records from [facility] will be requested to review if he has ever had any heart catheterization in the past to further assess if this is ischemic versus nonischemic cardiomyopathy. If he has not, he may require heart catheterization for further assessment regarding coronary artery disease as precipitating factor for acute on chronic congestive heart failure. He does acknowledge over the last several weeks, he has taken his Lasix sparingly due to having to use the restroom often. This may be the source of his underlying fluid volume overload. His Entresto is currently on hold due to increased kidney function and potassium level. Depending on his overall progress this may be reinitiated at maximum therapy or we may consider lower therapy of 49-51 mg. 2. Paroxysmal atrial fibrillation Patient's EKG shows underlying atrial flutter at a slow rate. This may also be contributing to his acute on chronic congestive heart failure. The loss of his atrial kick and low heart rate may be resulting in a generally lower cardiac output. His amiodarone will be decreased to 200 mg p.o. daily as his home dosage was noted to be 400 mg p.o. daily. His Coreg will also be decreased to 6.25 mg p.o. twice daily. Hopefully the increase in heart rate will help his generalized weakness and falls. Hopefully this also improves maintaining euvolemic state. He is not on oral anticoagulation given history of pulmonary hemorrhage and significant GI bleed. At this time, we will continue to hold anticoagulation. 3. Ufvyt-Lxtlqdenh-Yhmuf Patient states he underwent 2 ablation procedures for this. This appears stable based on most recent ECGs. He does acknowledge intermittent episodes of palpitations but this unclear if this is related to rhythm. His outside records including his ICD reports will be requested. He does acknowledge having a [employer] device. 4. Hypertension Patient's blood pressure is well-controlled. We will continue to monitor. We will not make any medication regimen changes. He will continue current home medication regimen outside of [facility]. 5. Hyperlipidemia His lipid panel this morning showed cholesterol: 90, HDL: 34, LDL: 42, and triglycerides: 69. He is not on any statin medication or other cholesterol- lowering medication. At this time, we will continue to monitor. Depending on his overall course and CAD evaluation, he may require statin medication. 6. Obstructive sleep apnea He will continue with CPAP/BiPAP therapy. Thank you for allowing us to participate in the patients plan of care, if you have any questions please do not hesitate to call. This note was generated using a voice recognition system and there may be incorrect words, spelling or punctuation that were not noted when reviewing the office note prior to saving.
[2018-11-06] MEDS: oxyCODONE 5 MG Tablet 10 MG PO ×2 (11:56→22:17)
--- NOTE | 2018-11-06 12:20 | PCM.PROGNOTE ---
<Barry Farias - Last Filed: 11/06/18 12:20> Patient Problems: Active and Suspected Problems Acute exacerbation of CHF (congestive heart failure) (Acute) Subjective: No SOB, no CP, no palp, no LH/dizziness. Cath in place. Resting comfortably in chair at bedside NAD. Ongoing weakness. Knee pain is worse today patient feels due to the bed. - Physical Exam General: Alert, Oriented x3, Cooperative HEENT: Atraumatic, PERRLA, EOMI, Normocephalic Neck: Supple, No JVD, Negative Carotid Bruits Lungs: Diminished Cardiovascular: No murmurs, Irregular Rate Abdomen: Bowel Sounds Present, Soft, Non Tender, Obese Extremities: No edema, Capillary Refill Less than 3 Seconds Skin: No rashes, No breakdown Musculoskeletal: No Tenderness to Palpation of Joints or Extremities Neurological: Cranial nerves II-XII grossly intact Psych/Mental Status: Normal Affect, Appropriate, Alert and oriented to time, place, person, mood and affect Vital Signs Temp Pulse Resp BP Pulse Ox 97.8 F 62 16 136/89 H 96 11/06/18 08:12 11/06/18 10:53 11/06/18 08:12 11/06/18 11:59 11/06/18 08:12 Oxygen Flow Rate (L/min) 2 Oxygen Delivery Method Room Air Weight: 475 lb 1.538 oz Body Mass Index (BMI) 77.0 Intake and Output for Last 24 Hours 11/04/18 11/05/18 11/06/18 23:59 23:59 23:59 Intake Total 240 / 240 600 / 600 Output Total 1600 / 1600 425 / 425 Balance -1360 / -1360 175 / 175 Laboratory Tests Past 24 Hrs 11/05/18 11/05/18 11/05/18 14:59 14:59 14:59 WBC 6.5 RBC 3.98 L Hgb 14.0 Hct 43.1 MCV 108.3 H MCH 35.2 H MCHC 32.5 RDW Std Deviation 61.5 H RDW Coeff of Florina 15.7 H Plt Count 147 L MPV 10.5 Immature Gran % (Auto) 0.500 Neut % (Auto) 72.2 H Lymph % (Auto) 9.7 L [place] % (Auto) 12.8 H Eos % (Auto) 4.2 Baso % (Auto) 0.6 Absolute Neuts (auto) 4.7 Absolute Lymphs (auto) 0.63 L Nucleated RBC % 0 Sodium 136 Potassium 5.6 H Chloride 107 Carbon Dioxide 26.0 Anion Gap 3 L BUN 42 H Creatinine 1.39 H Estim Creat Clear Calc 52.27 Est GFR (MDRD) Af Amer 67 Est GFR (MDRD) Non-Af 56 L BUN/Creatinine Ratio 30.2 H Glucose 88 Calcium 9.0 Magnesium Troponin I < 0.015 B-Natriuretic Peptide Triglycerides Cholesterol LDL Cholesterol VLDL Cholesterol HDL Cholesterol TSH Urine Color Urine Clarity Urine pH Ur Specific [place] Urine Protein Urine Glucose (UA) Urine Ketones Urine Occult Blood Urine Nitrite Urine Bilirubin Urine Urobilinogen Ur Leukocyte Esterase Urine RBC Urine WBC Ur Squamous Epith Cells Urine Bacteria Hyaline Casts Urine Mucus 11/05/18 11/05/18 11/05/18 14:59 14:59 15:40 WBC RBC Hgb Hct MCV MCH MCHC RDW Std Deviation RDW Coeff of Florina Plt Count MPV Immature Gran % (Auto) Neut % (Auto) Lymph % (Auto) [place] % (Auto) Eos % (Auto) Baso % (Auto) Absolute Neuts (auto) Absolute Lymphs (auto) Nucleated RBC % Sodium Potassium Chloride Carbon Dioxide Anion Gap BUN Creatinine Estim Creat Clear Calc Est GFR (MDRD) Af Amer Est GFR (MDRD) Non-Af BUN/Creatinine Ratio Glucose Calcium Magnesium 2.2 Troponin I B-Natriuretic Peptide 983.8 H Triglycerides Cholesterol LDL Cholesterol VLDL Cholesterol HDL Cholesterol TSH 4.74 H Urine Color Yellow Urine Clarity Clear Urine pH 5.0 Ur Specific [place] 1.020 Urine Protein 100 H Urine Glucose (UA) Normal Urine Ketones Negative Urine Occult Blood Negative Urine Nitrite Negative Urine Bilirubin 1 H Urine Urobilinogen 1 H Ur Leukocyte Esterase 25 H Urine RBC 0 SEEN Urine WBC 0-5 SEEN Ur Squamous Epith Cells 0-5 SEEN Urine Bacteria 0 SEEN Hyaline Casts 10-25 SEEN Urine Mucus 1+ 11/05/18 11/05/18 11/06/18 18:24 21:28 05:45 WBC 4.8 RBC 3.62 L Hgb 12.7 L Hct 38.1 L MCV 105.2 H MCH 35.1 H MCHC 33.3 RDW Std Deviation 60.0 H RDW Coeff of Florina 15.5 H Plt Count 110 L MPV 10.6 Immature Gran % (Auto) 0.200 Neut % (Auto) 66.6 Lymph % (Auto) 13.8 L [place] % (Auto) 13.8 H Eos % (Auto) 5.0 Baso % (Auto) 0.6 Absolute Neuts (auto) 3.2 Absolute Lymphs (auto) 0.66 L Nucleated RBC % 0 Sodium Potassium Chloride Carbon Dioxide Anion Gap BUN Creatinine Estim Creat Clear Calc Est GFR (MDRD) Af Amer Est GFR (MDRD) Non-Af BUN/Creatinine Ratio Glucose Calcium Magnesium Troponin I < 0.015 < 0.015 B-Natriuretic Peptide Triglycerides Cholesterol LDL Cholesterol VLDL Cholesterol HDL Cholesterol TSH Urine Color Urine Clarity Urine pH Ur Specific [place] Urine Protein Urine Glucose (UA) Urine Ketones Urine Occult Blood Urine Nitrite Urine Bilirubin Urine Urobilinogen Ur Leukocyte Esterase Urine RBC Urine WBC Ur Squamous Epith Cells Urine Bacteria Hyaline Casts Urine Mucus 11/06/18 05:45 WBC RBC Hgb Hct MCV MCH MCHC RDW Std Deviation RDW Coeff of Florina Plt Count MPV Immature Gran % (Auto) Neut % (Auto) Lymph % (Auto) [place] % (Auto) Eos % (Auto) Baso % (Auto) Absolute Neuts (auto) Absolute Lymphs (auto) Nucleated RBC % Sodium 141 Potassium 5.0 Chloride 111 H Carbon Dioxide 20.0 L Anion Gap 10 BUN 36 H Creatinine 1.21 Estim Creat Clear Calc 60.05 Est GFR (MDRD) Af Amer 79 Est GFR (MDRD) Non-Af 65 BUN/Creatinine Ratio 29.8 H Glucose 76 Calcium 8.6 Magnesium Troponin I B-Natriuretic Peptide Triglycerides 69 Cholesterol 90 LDL Cholesterol 42 VLDL Cholesterol 14 HDL Cholesterol 34 L TSH Urine Color Urine Clarity Urine pH Ur Specific [place] Urine Protein Urine Glucose (UA) Urine Ketones Urine Occult Blood Urine Nitrite Urine Bilirubin Urine Urobilinogen Ur Leukocyte Esterase Urine RBC Urine WBC Ur Squamous Epith Cells Urine Bacteria Hyaline Casts Urine Mucus Medical Necessity - Tobacco Use Smoking Status: Never smoker Tobacco Use: Non-smoker Assessment/Plan All Active Problems Acute exacerbation of CHF (congestive heart failure) (Acute) 1. Acute systolic CHF exacerbation, ischemic cardiomyopathy - last echo EF 30% - repeat. Continue IV lasix. Cardiology following. Obtain Echo. Monitor I/O, fluids and sodium restrict. 2. Paroxysmal Afib - EKG with AV dissociation, junctional rhythm, PVCs, some bradycardia in the ER. Hx WPW syndrome with prior ablations. Not on OAC as he had bleeding in his lungs and stomach while on coumadin. -Cardiology adjusted amio and coreg. 3. Hx DVT - again not on OAC due to reasons above 4. TEX - Bipap qhs - 06/12 with 2lpm bleed in. 5. hx COPD - no exacerbation - prn duonebs 6. Depression/Anxiety - ativan, buproion, ambien, zoloft - ambien/ativan with caution given his CHF and Renal disease 7. CKDIII - trend 8. Debility / Falls - PTOT. 9. Morbid obesity - dietary consult. Prior gastric sleeve surgery. 10. BL knee osteoarthritis - contributing to #8, has been told he cannot have surgery 2/ #9. DVT ppx: Heparin DC Planning: Many falls recently, may need placement. This patient was seen by Barry Farias PA-C under the supervision of Doctor Dariusz <Cabrera Arzola - Last Filed: 11/06/18 12:54> Subjective: Breathing well. States that he stopped taking his Lasix due to incontinence and not be able to make it to the bathroom in time. - Physical Exam General: Alert, Cooperative, - - No respiratory distress. No conversational dyspnea. On room air. HEENT: Atraumatic, Normocephalic Neck: No Nodes, Thyroid Normal Size and Texture Lungs: Clear to auscultation, Normal air movement, No rhonchi, No wheeze Cardiovascular: Regular rate, Regular Rhythm, Normal S1, Normal S2 Abdomen: Bowel Sounds Present, Soft, Non Tender, Non-Distended Extremities: No edema, No Calf Tenderness Skin: No rashes, No breakdown Musculoskeletal: No Tenderness to Palpation of Joints or Extremities, No Muscle Wasting Psych/Mental Status: Normal Affect, Appropriate Vital Signs Temp Pulse Resp BP Pulse Ox 36.6 C 62 16 136/89 H 96 11/06/18 08:12 11/06/18 10:53 11/06/18 08:12 11/06/18 11:59 11/06/18 08:12 Oxygen Flow Rate (L/min) 2 Oxygen Delivery Method Room Air Weight: 215.5 kg Body Mass Index (BMI) 77.0 Intake and Output for Last 24 Hours 11/04/18 11/05/18 11/06/18 23:59 23:59 23:59 Intake Total 240 / 240 600 / 600 Output Total 1600 / 1600 425 / 425 Balance -1360 / -1360 175 / 175 Laboratory Tests Past 24 Hrs 11/05/18 11/05/18 11/05/18 14:59 14:59 14:59 WBC 6.5 RBC 3.98 L Hgb 14.0 Hct 43.1 MCV 108.3 H MCH 35.2 H MCHC 32.5 RDW Std Deviation 61.5 H RDW Coeff of Florina 15.7 H Plt Count 147 L MPV 10.5 Immature Gran % (Auto) 0.500 Neut % (Auto) 72.2 H Lymph % (Auto) 9.7 L [place] % (Auto) 12.8 H Eos % (Auto) 4.2 Baso % (Auto) 0.6 Absolute Neuts (auto) 4.7 Absolute Lymphs (auto) 0.63 L Nucleated RBC % 0 Sodium 136 Potassium 5.6 H Chloride 107 Carbon Dioxide 26.0 Anion Gap 3 L BUN 42 H Creatinine 1.39 H Estim Creat Clear Calc 52.27 Est GFR (MDRD) Af Amer 67 Est GFR (MDRD) Non-Af 56 L BUN/Creatinine Ratio 30.2 H Glucose 88 Calcium 9.0 Magnesium Troponin I < 0.015 B-Natriuretic Peptide Triglycerides Cholesterol LDL Cholesterol VLDL Cholesterol HDL Cholesterol TSH Urine Color Urine Clarity Urine pH Ur Specific [place] Urine Protein Urine Glucose (UA) Urine Ketones Urine Occult Blood Urine Nitrite Urine Bilirubin Urine Urobilinogen Ur Leukocyte Esterase Urine RBC Urine WBC Ur Squamous Epith Cells Urine Bacteria Hyaline Casts Urine Mucus 11/05/18 11/05/18 11/05/18 14:59 14:59 15:40 WBC RBC Hgb Hct MCV MCH MCHC RDW Std Deviation RDW Coeff of Florina Plt Count MPV Immature Gran % (Auto) Neut % (Auto) Lymph % (Auto) [place] % (Auto) Eos % (Auto) Baso % (Auto) Absolute Neuts (auto) Absolute Lymphs (auto) Nucleated RBC % Sodium Potassium Chloride Carbon Dioxide Anion Gap BUN Creatinine Estim Creat Clear Calc Est GFR (MDRD) Af Amer Est GFR (MDRD) Non-Af BUN/Creatinine Ratio Glucose Calcium Magnesium 2.2 Troponin I B-Natriuretic Peptide 983.8 H Triglycerides Cholesterol LDL Cholesterol VLDL Cholesterol HDL Cholesterol TSH 4.74 H Urine Color Yellow Urine Clarity Clear Urine pH 5.0 Ur Specific [place] 1.020 Urine Protein 100 H Urine Glucose (UA) Normal Urine Ketones Negative Urine Occult Blood Negative Urine Nitrite Negative Urine Bilirubin 1 H Urine Urobilinogen 1 H Ur Leukocyte Esterase 25 H Urine RBC 0 SEEN Urine WBC 0-5 SEEN Ur Squamous Epith Cells 0-5 SEEN Urine Bacteria 0 SEEN Hyaline Casts 10-25 SEEN Urine Mucus 1+ 11/05/18 11/05/18 11/06/18 18:24 21:28 05:45 WBC 4.8 RBC 3.62 L Hgb 12.7 L Hct 38.1 L MCV 105.2 H MCH 35.1 H MCHC 33.3 RDW Std Deviation 60.0 H RDW Coeff of Florina 15.5 H Plt Count 110 L MPV 10.6 Immature Gran % (Auto) 0.200 Neut % (Auto) 66.6 Lymph % (Auto) 13.8 L [place] % (Auto) 13.8 H Eos % (Auto) 5.0 Baso % (Auto) 0.6 Absolute Neuts (auto) 3.2 Absolute Lymphs (auto) 0.66 L Nucleated RBC % 0 Sodium Potassium Chloride Carbon Dioxide Anion Gap BUN Creatinine Estim Creat Clear Calc Est GFR (MDRD) Af Amer Est GFR (MDRD) Non-Af BUN/Creatinine Ratio Glucose Calcium Magnesium Troponin I < 0.015 < 0.015 B-Natriuretic Peptide Triglycerides Cholesterol LDL Cholesterol VLDL Cholesterol HDL Cholesterol TSH Urine Color Urine Clarity Urine pH Ur Specific [place] Urine Protein Urine Glucose (UA) Urine Ketones Urine Occult Blood Urine Nitrite Urine Bilirubin Urine Urobilinogen Ur Leukocyte Esterase Urine RBC Urine WBC Ur Squamous Epith Cells Urine Bacteria Hyaline Casts Urine Mucus 11/06/18 05:45 WBC RBC Hgb Hct MCV MCH MCHC RDW Std Deviation RDW Coeff of Florina Plt Count MPV Immature Gran % (Auto) Neut % (Auto) Lymph % (Auto) [place] % (Auto) Eos % (Auto) Baso % (Auto) Absolute Neuts (auto) Absolute Lymphs (auto) Nucleated RBC % Sodium 141 Potassium 5.0 Chloride 111 H Carbon Dioxide 20.0 L Anion Gap 10 BUN 36 H Creatinine 1.21 Estim Creat Clear Calc 60.05 Est GFR (MDRD) Af Amer 79 Est GFR (MDRD) Non-Af 65 BUN/Creatinine Ratio 29.8 H Glucose 76 Calcium 8.6 Magnesium Troponin I B-Natriuretic Peptide Triglycerides 69 Cholesterol 90 LDL Cholesterol 42 VLDL Cholesterol 14 HDL Cholesterol 34 L TSH Urine Color Urine Clarity Urine pH Ur Specific [place] Urine Protein Urine Glucose (UA) Urine Ketones Urine Occult Blood Urine Nitrite Urine Bilirubin Urine Urobilinogen Ur Leukocyte Esterase Urine RBC Urine WBC Ur Squamous Epith Cells Urine Bacteria Hyaline Casts Urine Mucus Assessment/Plan 1. acute HFrEF EF previously 30% weight now 215kg, dry weight probably around 185 (back in July) on IV lasix Entresto has been held due to increased creatinine from baseline. pt aware that he need to be complaint with his medications 2. pAfib: not on OAC given h/o bleeding. amio decreased to 200 3. Debility: PT OT. HHC v SNF upon discharge. Code Visit Inpatient E&M: 60234 Subs Hosp L2
[2018-11-06] MEDS: Furosemide 40 MG/4 ML Vial IV ×2 (13:13→22:16)
[2018-11-06] MEDS: 0.9% NaCl Peripheral Flush Adult/Peds IV (13:13)
--- NOTE | 2018-11-06 13:33 | CASEMGMT ---
Social Work Pt confirming he has both a living will and a health care POA which names his ex Brittni. Pt made aware that documents are not in medical record and request that documents be brought to [facility] when possible. Pt understanding. GIFTY Jaime
--- NOTE | 2018-11-06 13:35 | CASEMGMT ---
Addendum entered by Ramonita Christopher 11/06/18 13:41: SW did call Waiver CM Camryn and left VM that pt is currently in [facility]. GIFTY Jaime Original Note: Social Work SW met with pt in room and introduced role of SW. Pt lives alone in 1 story apartment with no steps to enter. Pt has all needed DME and has [employer] Waiver program and CM is Camryn Garcia ([phone]). Pt receives home health aid M,W,TH,S 3 hours and goes to [facility] on Fridays. Pt has two falls at home on Sunday which required pt to call squad to help get up. Discussed pt case with physician and PT/OT as well with pt. Pt hesitant for SNF placement and would prefer to return home and is open to home health therapy. Pt stating if he does need SNF he would go. Written list of in network home health agencies and in network SNFs provided to pt. Will reevaluate pt tomorrow to determine discharge plan. Plan: Home with home health care PT/OT vs. SNF GIFTY Jaime
--- NOTE | 2018-11-06 20:12 | CPS ---
Hospital BiPAP unit removed from room. Pts' home unit setup at bedside. 2L Bled into machine per patient's home setup. No water added to water chamber per pt. request.
[2018-11-06] MEDS: LORazepam 0.5 MG Tablet PO (22:16)
[2018-11-06] MEDS: Zolpidem Tartrate 5 MG Tablet PO (22:16)
[2018-11-07] VITALS (14 sets, daily range): BP systolic 83–110; BP diastolic 45–59; PULSE 38–72; RESP 15–20; TEMP 36.4–37; O2SAT 92–96
[2018-11-07 05:37] LABS: Absolute Lymphocyte Count 0.91 X10^3/uL (0.83-4.51); Absolute Neutrophil Count 3.4 X10^3/uL (2.0-7.7); Basophil# 0.03 X10^3/uL; Basophil% 0.6 % (0-1); Eosinophil# 0.25 X10^3/uL; Eosinophils% 4.7 % (0-5); Hematocrit 39.1 % (40-54); Hemoglobin 12.9 g/dL (13.0-16.5); Lymphocyte # 0.91 X10^3/ul (4.0); Lymphocyte % 17.2 % (19-41); Mean Corpuscular Hgb 34.7 pg (27.0-32.0); Mean Corpuscular Volume 105.1 fL (80-94); Mean Platelet Vol. 10.3 fl (6.2-12.0); Monocyte# 0.72 X10^3/uL; Monocyte% 13.6 % (0-10); NRBC Flagged by Analyzer 0 % (0-5); Neutrophil # 3.38 X10^3/uL (2.7-7.7); Neutrophil % 63.7 % (47-70); Platelet Count 127 K/mm3 (150-450); RBC Distribution Width CV 15.6 % (11.6-14.6); RBC Distribution Width SD 59.7 fl (35.1-43.9); Red Blood Count 3.72 M/mm3 (4.6-6.2); White Blood Count 5.3 K/mm3 (4.4-11.0)
[2018-11-07 05:50] LABS: Anion Gap 7 (5-15); BUN 31 mg/dL (7-18); BUN/Creat Ratio 26.1 RATIO (10-20); Calcium,Total 8.7 mg/dL (8.5-10.1); Chloride 109 mmol/L (98-107); Creatinine, Serum 1.19 mg/dL (0.70-1.30); EST Glomerular Filtration Rate 67 mL/min (>60); Est Glom Filt Rate - Afr Amer 81 mL/min (>60); Estimated Creatinine Clearance 61.06 ml/min; Glucose 79 mg/dL (74-106); Potassium 4.6 mmol/L (3.5-5.1); Sodium Level 140 mmol/L (136-145)
[2018-11-07] MEDS: Nystatin Powder 15gm Bottle 1 APPLIC TOPICAL ×3 (06:17→23:37)
[2018-11-07] MEDS: 0.9% NaCl Peripheral Flush Adult/Peds IV (06:17)
[2018-11-07] MEDS: Furosemide 40 MG/4 ML Vial IV (06:17)
[2018-11-07] MEDS: Budesonide Respules 0.5 MG/2 ML AMPUL.NEB. INHALATION ×2 (06:47→21:37)
--- NOTE | 2018-11-07 06:48 | PN_ITS ---
Progress Note Outside records were re-viewed. Office visit from Dr. Pizarro, aircraft pneudraulic systems mechanic on 2015 showed pertinent information such as previous cardiac history of CHF, atrial fibrillation with no anticoagulations due to recurrent bleeds, SVT with ablation 2003 and 2011, obstructive sleep apnea with BiPAP therapy, hypertension, multiple venous thrombosis due to protein C deficiency, nonischemic cardiomyopathy, and sustained VT with ICD placement 2011. There is mention that his atrial fibrillation has been intermittent and difficult to control and that he cannot tolerate warfarin due to life-threatening bleeds in the past. It is also mentioned that he is on amiodarone for recurrent sustained ventricular tachycardia not atrial arrhythmias. He had a nuclear stress test on 11/18/2013 that showed; Conclusions: 1. Perfusion study: No evidence of ischemia or infarction. 2. Functional capacity and/a (pharmacological inferences. 3. Left ventricle is mildly dilated. The left ventricle systolic function is low normal. 4. Right ventricle is normal in size. 5. The stress LVEF is 51%. 6. This is a low risk scan. 7. Very poor quality due to obesity. His most recent ablation procedure occurred on 08/14/[address] Barajas of [facility]. Dr. Romero's office note from 06/26/2018 showed pertinent information such as noting a long history of arrhythmia from a very young age at about the age of 12. He underwent EP study and unsuccessful ablation at [facility] in late 2002. He has a single-chamber [employer] medical ICD. There is a mention of a cardiac cath in June 2008 that showed no significant coronary artery disease with an LVEF of 45%. This report is not available for review. EP notes that his rhythm is atrial fibrillation or atrial flutter and no attempt to maintain sinus rhythm was made due to asymptomatic nature.
[2018-11-07] MEDS: buPROPion 100 MG Tablet PO (09:31)
[2018-11-07] MEDS: Enoxaparin 40 MG/0.4 ML Syringe SC ×2 (09:31→23:37)
[2018-11-07] MEDS: Aspirin 81 MG TAB.CHEW PO (09:32)
[2018-11-07] MEDS: Magnesium Oxide 400 MG Tablet PO (09:32)
[2018-11-07] MEDS: sulfaSALAzine 500 MG Tablet PO ×3 (09:32→18:02)
[2018-11-07] MEDS: Amiodarone 200 MG Tablet 400 MG PO (09:33)
[2018-11-07] MEDS: Tolterodine Tartrate 2 MG CAP.SA PO (09:33)
[2018-11-07] MEDS: Sertraline 50 MG Tablet PO (09:33)
[2018-11-07] MEDS: Senna Tablet 1 TABLET PO ×2 (09:34→23:42)
[2018-11-07] MEDS: Sertraline 100 MG Tablet PO (09:34)
[2018-11-07] MEDS: oxyCODONE 5 MG Tablet 10 MG PO (09:36)
[2018-11-07] MEDS: LORazepam 1 MG Tablet PO (09:36)
[2018-11-07] MEDS: Furosemide 40 MG Tablet PO ×2 (09:36→18:02)
--- NOTE | 2018-11-07 10:12 | CASEMGMT ---
SW called [facility], they cannot take pt due to not being able to accommodate a bariatric pt. SW spoke w/pt in room in regard to discharge plan. Pt would like to go home if possible. SW suggested that perhaps we should speak again once pt has had PT/OT today, to make sure going home is realistic. SW explained that if pt is not able to return home, pt should review list of SNF's given yesterday that take his insurance. SW explained that [facility] is not able to accommodate him. Pt states understanding. SW will follow up later today after therapy. DARION Garrett
--- NOTE | 2018-11-07 10:16 | CASEMGMT ---
According to the [facility] MyCare website, the following are in-network tertiary facilities: [facility], [place], [facility], [facility], [facility], and . Belia KERN CM
--- NOTE | 2018-11-07 10:48 | PN_ITS ---
Patient Problems: Active and Suspected Problems Acute exacerbation of CHF (congestive heart failure) (Acute) Subjective: breathing well. anxious to get home. Vitals/I&O's: Vital Signs Temp Pulse Resp BP Pulse Ox 36.6 C 70 16 90/47 L 92 11/07/18 09:23 11/07/18 09:23 11/07/18 09:23 11/07/18 09:23 11/07/18 09:23 Oxygen Flow Rate (L/min) 2 Oxygen Delivery Method Room Air Weight: 210.5 kg Body Mass Index (BMI) 77.0 Intake and Output for Last 24 Hours 11/05/18 11/06/18 11/07/18 23:59 23:59 23:59 Intake Total 240 / 240 1230 / 1230 Output Total 1600 / 1600 3750 / 3750 1800 / 1800 Balance -1360 / -1360 -2520 / -2520 -1800 / -1800 General: Alert, No apparent distress HEENT: Atraumatic, Normocephalic Oral: Moist Mucosa, No Gingival or Mucosal Lesions/ Ulcerations Neck: No Nodes, Thyroid Normal Size and Texture Lungs: Clear to auscultation, Normal air movement, No rhonchi, No wheeze Cardiovascular: Regular rate, Regular Rhythm, Normal S1, Normal S2 Abdomen: Bowel Sounds Present, Soft, Non Tender, Non-Distended, Obese Extremities: No edema, No Calf Tenderness Skin: No rashes, No breakdown Musculoskeletal: No Tenderness to Palpation of Joints or Extremities, No Muscle Wasting Psych/Mental Status: Normal Affect, Appropriate Laboratory Results 11/07/18 05:15: WBC 5.3, RBC 3.72 L, Hgb 12.9 L, Hct 39.1 L, MCV 105.1 H, MCH 34.7 H, MCHC 33.0, RDW Std Deviation 59.7 H, RDW Coeff of Florina 15.6 H, Plt Count 127 L, MPV 10.3, Immature Gran % (Auto) 0.200, Neut % (Auto) 63.7, Lymph % (Auto) 17.2 L, [place] % (Auto) 13.6 H, Eos % (Auto) 4.7, Baso % (Auto) 0.6, Absolute Neuts (auto) 3.4, Absolute Lymphs (auto) 0.91, Nucleated RBC % 0 11/07/18 05:15: Sodium 140, Potassium 4.6, Chloride 109 H, Carbon Dioxide 24.0, Anion Gap 7, BUN 31 H, Creatinine 1.19, Estim Creat Clear Calc 61.06, Est GFR (MDRD) Af Amer 81, Est GFR (MDRD) Non-Af 67, BUN/Creatinine Ratio 26.1 H, Glucose 79, Calcium 8.7 Current Medications Acetaminophen (Tylenol) 650 mg PO Q6H PRN PRN PRN Reason: Non-cardiac pain (mod-severe) Al Hydroxide/Mg Hydroxide (Mylanta Ii) 15 - 30 ml PO Q4H PRN PRN PRN Reason: INDIGESTION Albuterol Sulfate (Ventolin Aerosols) 2.5 mg INHALATION Q2H PRN PRN PRN Reason: dyspnea, wheezing Amiodarone HCl (Cordarone) 400 mg PO DAILY [facility] Last Admin: 11/07/18 09:33 Dose: 400 mg Documented by: Aspirin (Aspirin, Baby) 81 mg PO DAILY@0800 [facility] Last Admin: 11/07/18 09:32 Dose: 81 mg Documented by: Budesonide (Pulmicort Aerosol) 0.5 mg INHALATION BID.RT [facility] Last Admin: 11/07/18 06:47 Dose: 0.5 mg Documented by: Bupropion HCl (Wellbutrin Tablets) 100 mg PO DAILY [facility] Last Admin: 11/07/18 09:31 Dose: 100 mg Documented by: Carvedilol (Coreg) 6.25 mg PO BID [facility] Dextrose (D50w Syringe) 0 gm IV X1 PRN; Protocol PRN Reason: Hypoglycemia Enoxaparin Sodium (Lovenox) 40 mg SC BID [facility] Last Admin: 11/07/18 09:31 Dose: 40 mg Documented by: Furosemide (Lasix) 40 mg PO BID@1000,1800 [facility] Last Admin: 11/07/18 09:36 Dose: 40 mg Documented by: Glucagon () 1 mg IM .X1 PRN PRN Reason: Hypoglycemia Hydralazine HCl (Apresoline Iv) 10 mg IV Q4H PRN PRN PRN Reason: SBP > 160 Sodium Chloride () 250 mls @ 15 mls/hr IV .[id number] PRN PRN Reason: SALINE FLUSH Sodium Chloride () 1,000 mls @ 15 mls/hr IV .Q48H MATHEUS Lorazepam (Ativan) 0.5 mg PO QHS [facility] Last Admin: 11/06/18 22:16 Dose: 0.5 mg Documented by: Lorazepam (Ativan) 1 mg PO DAILY [facility] Last Admin: 11/07/18 09:36 Dose: 1 mg Documented by: Magnesium Hydroxide (Milk Of Magnesia) 30 ml PO DAILY PRN PRN Reason: Constipation Magn[facility] ([facility]Ox 400) [facility] Last Admin: 11/07/18 09:32 Dose: 400 mg Documented by: Morphine Sulfate () 1 - 2 mg IV Q4H PRN PRN PRN Reason: PAIN Nitroglycerin (Nitrostat) 0.4 mg SUBLINGUAL Q5M PRN PRN Reason: Chest Pain Nystatin (Mycostatin Powder) 1 applic TOPICAL TID [facility]; Protocol Last Admin: 11/07/18 06:17 Dose: 1 applicatio Documented by: Ondansetron HCl (Zofran) 4 mg IV Q8H PRN PRN PRN Reason: NAUSEA/VOMITING Oxycodone HCl (Oxyir) 10 mg PO BID [facility] Last Admin: 11/07/18 09:36 Dose: 10 mg Documented by: Senna (Senokot) 1 tablet PO BID [facility] Last Admin: 11/07/18 09:34 Dose: 1 tablet Documented by: Sertraline HCl (Zoloft) 100 mg PO DAILY [facility] Last Admin: 11/07/18 09:34 Dose: 100 mg Documented by: Sertraline HCl (Zoloft) 50 mg PO DAILY [facility] Last Admin: 11/07/18 09:33 Dose: 50 mg Documented by: Sodium Chloride () 10 - 40 ml IV UD PRN PRN Reason: SALINE FLUSH Last Admin: 11/07/18 06:17 Dose: 10 ml Documented by: Sulfasalazine (Azulfidine) 500 mg PO TIDCM [facility] Last Admin: 11/07/18 09:32 Dose: 500 mg Documented by: Tolterodine Tartrate (Detrol La) 2 mg PO DAILY [facility] Last Admin: 11/07/18 09:33 Dose: 2 mg Documented by: Zolpidem Tartrate (Ambien (Generic)) 5 mg PO QHS [facility] Last Admin: 11/06/18 22:16 Dose: 5 mg Documented by: Medical Necessity - Tobacco Use Smoking Status: Never smoker Tobacco Use: Non-smoker Assessment/Plan All Active Problems Acute exacerbation of CHF (congestive heart failure) (Acute) 1. acute HFrEF * EF previously 30% * weight now 210kg, dry weight probably around 185 (back in July) * switched back to oral furosemide * Entresto resumed * pt aware that he need to be complaint with his medications * plan for [facility] on 11/08 2. pAfib: * not on OAC given h/o bleeding. * amio decreased to 200, now back up to 400 * on carvedilol * follow up with Dr. Rosenberg (EP) as outpt. 3. Debility: HHC upon discharge. 4. VTE prophylaxis: moderate risk. LMWH. Code Visit Inpatient E&M: 04737 Subs Hosp L2
[2018-11-07] MEDS: SACUBITRIL/VALSARTAN 97-103 MG TABLET 1 EACH PO ×2 (11:02→23:37)
[2018-11-07] MEDS: Carvedilol 6.25 MG Tablet PO (11:02)
--- NOTE | 2018-11-07 13:33 | CASEMGMT ---
Pt participated in therapy today, SW met w/pt after therapy. Pt feels he can manage at home, he is agreeable to home health. He would like [facility] for PT/OT/nursing if possible. SW explained will call and let them know. Also, pt explained that [facility] provides transportation for pt, he is going to call to arrange transport home for tomorrow afternoon. Pt also asked about increasing aide services. SW will call pt's shoe caser. SW called [facility], they were aware pt was here in the hospital. [facility] is to call SW back tomorrow and let SW know if they can take pt for PT/OT/fdc. SW called pt's shoe caser, Camryn Morales([phone]), message left letting her know pt is here and would like an increase in aide services at home. DARION Garrett
[2018-11-07] MEDS: Zolpidem Tartrate 5 MG Tablet PO (23:37)
[2018-11-08] VITALS (17 sets, daily range): BP systolic 93–144; BP diastolic 50–85; PULSE 26–69; RESP 16–18; TEMP 36.4–36.7; O2SAT 93–98
[2018-11-08] MEDS: Acetaminophen 325 MG Tablet 650 MG PO (01:26)
[2018-11-08] MEDS: Mag Hydrox/Al Hydrox/Simeth 30 ML UDC PO ×2 (01:26→12:19)
[2018-11-08 05:53] LABS: Anion Gap 4 (5-15); BUN 28 mg/dL (7-18); BUN/Creat Ratio 24.1 RATIO (10-20); Calcium,Total 8.6 mg/dL (8.5-10.1); Chloride 108 mmol/L (98-107); Creatinine, Serum 1.16 mg/dL (0.70-1.30); EST Glomerular Filtration Rate 69 mL/min (>60); Est Glom Filt Rate - Afr Amer 83 mL/min (>60); Estimated Creatinine Clearance 62.64 ml/min; Glucose 84 mg/dL (74-106); Potassium 4.3 mmol/L (3.5-5.1); Sodium Level 141 mmol/L (136-145)
--- NOTE | 2018-11-08 05:55 | EKG12_ITS ---
Test Reason : AM EKG Blood Pressure : / mmHG Vent. Rate : 142 BPM Atrial Rate : 202 BPM P-R Int : 000 ms QRS Dur : 016 ms QT Int : 198 ms P-R-T Axes : 000 000 238 degrees QTc Int : 304 ms Atrial fibrillation Indeterminate axis Pulmonary disease pattern Nonspecific ST and T wave abnormality Abnormal ECG When compared with ECG of 06-NOV-2018 05:15, Previous ECG has undetermined rhythm, needs review Confirmed by JAMAL KINNEY, SHIELA ([id number]), newspaper or periodical editor EDVIN VAN ([id number]) on 11/12/2018 1:51:33 PM Referred By: Joanna Monk Confirmed By:LB BERRY MD
[2018-11-08] MEDS: Budesonide Respules 0.5 MG/2 ML AMPUL.NEB. INHALATION (06:30)
[2018-11-08] MEDS: Aspirin 81 MG TAB.CHEW PO (07:35)
[2018-11-08] MEDS: Amiodarone 200 MG Tablet 400 MG PO (07:53)
[2018-11-08] MEDS: 0.9% Normal Saline 1,000 ML 15 ML IV (07:54)
[2018-11-08] MEDS: DiphenhydrAMINE 25 MG Capsule 50 MG PO (08:38)
--- NOTE | 2018-11-08 10:05 | CL.D_ITS ---
Patient Name: ZAIN VILLARREAL Study Date: 11/08/2018 Performing: Hank Fisher MD Ht: 66.14 inches 168 cm : 1960 Wt: 451.95 lbs 205 kg Age: 58 Gender: male BSA: 2.83 PROCEDURE(S) PERFORMED [id number] CLINICAL PROFILE AND INDICATIONS Heart Failure: NYHA Class: 3, Newly Diagnosed: No, Heart Failure Type: Systolic Stress/Imaging Stress/Image Study Performed: No CAD Presentations: Unstable angina. Comorbidities/Risk Factors: Hypertension Prior CHF CONCLUSIONS Normal coronary arteries Global LV systolic dysfunction- Severe LVEF: by LV gram 15 % Elevated Left Ventricular End Diastolic Pressure RECOMMENDATIONS Management as per referring Insurance Biller Manual sheath removal DESCRIPTION OF PROCEDURE The patient arrived to the procedure lab. The risks and benefits of the procedure as well as a full d escription of our services here and current unavailability of surgical backup were fully explained to the patient and/or their significant other prior to the catheterization. The Timeout was completed, verifying the correct patient and procedure. The patient's procedural site was prepped and draped in the usual fashion. Local anesthetic was given subcutaneously to right groin region with Lidocaine 2%. Using a modified Seldinger technique, arterial access was obtained via the right femoral artery, a 4 Fr 45cm sheath was inserted Left Coronary Artery selective angiography was performed in multiple vie ws using a 4 Fr. JL5 catheter. Left Coronary Artery selective angiography was performed in multiple v iews using a 4 Fr. JL6 catheter. Right Coronary Artery selective angiography was then performed in mu ltiple views using a 4 Fr. 3DRC catheter. Left Ventriculography was performed in YOUNGER projection using a 4 Fr. Pigtail catheter. LV to AO pullback pressures were then recorded.The arteria l sheath was pulled and manual compression applied until hemostasis is achieved. CORONARY ANGIOGRAPHY DOMINANCE: Right Dominant LEFT HEART ASSESSMENT Left Ventricular Ejection Fraction: by LV Gram 15 % Global Hypokinesis - Severe Depressed Left Ventricular systolic function LVEDP: 17 mmHg LEFT MAIN: Angiographically normal LEFT ANTERIOR DESCENDING ARTERY: Angiographically normal CIRCUMFLEX ARTERY: Angiographically normal RIGHT CORONARY ARTERY: Angiographically normal COMPLICATIONS No Complications PROCEDURE MEDICATIONS Oxygen: 2 L/min via nasal cannula SUMMARY OF HEMODYNAMIC DATA Time AIR REST ECG 09:07:31 AO 102/57 (81) SA 09:44:16 LV 114/0, 16 09:55:04 LV 116/6, 17 09:55:10 LVp 123/3, 16 09:55:15 AOp 106/60 (79) 09:55:20 Signed By Hank Fisher MD On 11/08/2018 10:04:38 Hank Fisher MD
[2018-11-08] MEDS: sulfaSALAzine 500 MG Tablet PO (11:29)
[2018-11-08] MEDS: Sertraline 100 MG Tablet PO (11:29)
[2018-11-08] MEDS: SACUBITRIL/VALSARTAN 97-103 MG TABLET 1 EACH PO (11:29)
[2018-11-08] MEDS: Senna Tablet 1 TABLET PO (11:30)
[2018-11-08] MEDS: Magnesium Oxide 400 MG Tablet PO (11:30)
[2018-11-08] MEDS: Furosemide 40 MG Tablet PO (11:30)
[2018-11-08] MEDS: buPROPion 100 MG Tablet PO (11:31)
[2018-11-08] MEDS: Tolterodine Tartrate 2 MG CAP.SA PO (11:31)
[2018-11-08] MEDS: Sertraline 50 MG Tablet PO (11:31)
[2018-11-08] MEDS: LORazepam 1 MG Tablet PO (11:35)
[2018-11-08] MEDS: oxyCODONE 5 MG Tablet 10 MG PO (11:35)
--- NOTE | 2018-11-08 12:19 | CASEMGMT ---
Social Work SW met with pt and he continues to state he can return home at d/c. Phone call to [facility] and they are able to accept pt and will start on Sunday. Order and H&P faxed. Phone call to Lauren Cowan CM and chio BRANHAM requesting aid service be increased from 4 to 5 days a week. Camryn out of office until Sunday. Pt made aware of above and is agreeable. Pt stating he will call his sister for transport home and feels he will have no trouble getting in and out of sisters care. Plan: Home with [facility] PT/OT/SN and home health aids GIFTY Jaime
--- NOTE | 2018-11-08 12:50 | CASEMGMT ---
SW received call back from Camryn Garcia CM from [facility],inquiring about pt's request for additional aide services. She inquired if pt no longer wants to go to [facility], since he is requesting another day of aide services. SW is not certain, explained will ask pt and encouraged her to follow up w/pt on Sunday as he will likely be going home today or tomorrow. SW spoke w/pt in room. He explained has aide services Sunday, Sunday, Sunday and Sunday, goes to [facility] on Sunday. He was hoping to have an aide on , does still want to go to [facility] Sunday. SW explained will leave Camryn a message explaining this and to follow up w/pt on Sunday. Pt states understanding. BEATRICE did call Camryn back one more time from [facility], message let explaining pt would like an aide on , and still would like to go to [facility] on Fridays. DARION Garrett
--- NOTE | 2018-11-08 14:22 | PCM.PN.HOSP ---
Patient Problems: Active and Suspected Problems Acute exacerbation of CHF (congestive heart failure) (Acute) Subjective: Feels good. LHC showed normal coronaries. Vitals/I&O's: Vital Signs Temp Pulse Resp BP Pulse Ox 36.6 C 62 17 97/54 L 93 11/08/18 13:15 11/08/18 13:15 11/08/18 13:15 11/08/18 13:15 11/08/18 13:15 Oxygen Flow Rate (L/min) 2 Oxygen Delivery Method Room Air Weight: 204.8 kg Body Mass Index (BMI) 77.0 Intake and Output for Last 24 Hours 11/06/18 11/07/18 11/08/18 23:59 23:59 23:59 Intake Total 1230 / 1230 1060 / 1060 120 / 120 Output Total 3750 / 3750 7400 / 7400 875 / 875 Balance -2520 / -2520 -6340 / -6340 -755 / -755 General: Alert, Cooperative, No apparent distress HEENT: Atraumatic, Normocephalic Oral: Moist Mucosa, No Gingival or Mucosal Lesions/ Ulcerations Neck: No Nodes, Thyroid Normal Size and Texture Lungs: Clear to auscultation, Normal air movement, No rhonchi, No wheeze, No rales Cardiovascular: Regular rate, Regular Rhythm, Normal S1, Normal S2 Abdomen: Bowel Sounds Present, Soft, Non Tender, Non-Distended Extremities: Edema Psych/Mental Status: Normal Affect, Appropriate Laboratory Results 11/08/18 05:25: Sodium 141, Potassium 4.3, Chloride 108 H, Carbon Dioxide 29.0, Anion Gap 4 L, BUN 28 H, Creatinine 1.16, Estim Creat Clear Calc 62.64, Est GFR (MDRD) Af Amer 83, Est GFR (MDRD) Non-Af 69, BUN/Creatinine Ratio 24.1 H, Glucose 84, Calcium 8.6 Current Medications Acetaminophen (Tylenol) 650 mg PO Q6H PRN PRN PRN Reason: Non-cardiac pain (mod-severe) Last Admin: 11/08/18 01:26 Dose: 650 mg Documented by: Al Hydroxide/Mg Hydroxide (Mylanta Ii) 15 - 30 ml PO Q4H PRN PRN PRN Reason: INDIGESTION Last Admin: 11/08/18 12:19 Dose: 30 ml Documented by: Albuterol Sulfate (Ventolin Aerosols) 2.5 mg INHALATION Q2H PRN PRN PRN Reason: dyspnea, wheezing Amiodarone HCl (Cordarone) 400 mg PO DAILY [facility] Last Admin: 11/08/18 07:53 Dose: 400 mg Documented by: Aspirin (Aspirin, Baby) 81 mg PO DAILY@0800 [facility] Last Admin: 11/08/18 07:35 Dose: 81 mg Documented by: Budesonide (Pulmicort Aerosol) 0.5 mg INHALATION BID.RT [facility] Last Admin: 11/08/18 06:30 Dose: 0.5 mg Documented by: Bupropion HCl (Wellbutrin Tablets) 100 mg PO DAILY [facility] Last Admin: 11/08/18 11:31 Dose: 100 mg Documented by: Carvedilol (Coreg) 6.25 mg PO BID [facility] Last Admin: 11/08/18 11:31 Dose: Not Given Documented by: Dextrose (D50w Syringe) 0 gm IV X1 PRN; Protocol PRN Reason: Hypoglycemia Enoxaparin Sodium (Lovenox) 40 mg SC BID [facility] Last Admin: 11/08/18 11:31 Dose: Not Given Documented by: Furosemide (Lasix) 40 mg PO BID@1000,1800 [facility] Last Admin: 11/08/18 11:30 Dose: 40 mg Documented by: Glucagon () 1 mg IM .X1 PRN PRN Reason: Hypoglycemia Heparin Sodium (Beef Lung) (Heparin 500 Unit/5 Ml (100/Ml)) 500 unit IV UD PRN PRN Reason: HEPARIN FLUSH Hydralazine HCl (Apresoline Iv) 10 mg IV Q4H PRN PRN PRN Reason: SBP > 160 Sodium Chloride () 250 mls @ 15 mls/hr IV .[id number] PRN PRN Reason: SALINE FLUSH Sodium Chloride () 1,000 mls @ 15 mls/hr IV .Q48H [facility] Last Admin: 11/08/18 07:54 Dose: 15 mls/hr Documented by: Labetalol HCl (Trandate) 5 mg IV X1 PRN PRN Reason: SBP > 160 PRIOR TO SHEATH PULL Lorazepam (Ativan) 0.5 mg PO QHS [facility] Last Admin: 11/07/18 23:34 Dose: Not Given Documented by: Lorazepam (Ativan) 1 mg PO DAILY [facility] Last Admin: 11/08/18 11:35 Dose: 1 mg Documented by: Magnesium Hydroxide (Milk Of Magnesia) 30 ml PO DAILY PRN PRN Reason: Constipation Magnesium Oxide (Mag-Ox 400) 400 mg PO DAILYCM [facility] Last Admin: 11/08/18 11:30 Dose: 400 mg Documented by: Morphine Sulfate () 1 - 2 mg IV Q4H PRN PRN PRN Reason: PAIN Nitroglycerin (Nitrostat) 0.4 mg SUBLINGUAL Q5M PRN PRN Reason: Chest Pain Nystatin (Mycostatin Powder) 1 applic TOPICAL TID [facility]; Protocol Last Admin: 11/08/18 07:28 Dose: Not Given Documented by: Ondansetron HCl (Zofran) 4 mg IV Q8H PRN PRN PRN Reason: NAUSEA/VOMITING Oxycodone HCl (Oxyir) 10 mg PO BID [facility] Last Admin: 11/08/18 11:35 Dose: 10 mg Documented by: Senna (Senokot) 1 tablet PO BID [facility] Last Admin: 11/08/18 11:30 Dose: 1 tablet Documented by: Sertraline HCl (Zoloft) 100 mg PO DAILY [facility] Last Admin: 11/08/18 11:29 Dose: 100 mg Documented by: Sertraline HCl (Zoloft) 50 mg PO DAILY [facility] Last Admin: 11/08/18 11:31 Dose: 50 mg Documented by: Sodium Chloride () 10 - 40 ml IV UD PRN PRN Reason: SALINE FLUSH Last Admin: 11/07/18 06:17 Dose: 10 ml Documented by: Sulfasalazine (Azulfidine) 500 mg PO TIDCM [facility] Last Admin: 11/08/18 11:36 Dose: Not Given Documented by: Tolterodine Tartrate (Detrol La) 2 mg PO DAILY [facility] Last Admin: 11/08/18 11:31 Dose: 2 mg Documented by: Zolpidem Tartrate (Ambien (Generic)) 5 mg PO QHS [facility] Last Admin: 11/07/18 23:37 Dose: 5 mg Documented by: Medical Necessity - Tobacco Use Smoking Status: Never smoker Tobacco Use: Non-smoker Assessment/Plan All Active Problems Acute exacerbation of CHF (congestive heart failure) (Acute) 1. acute HFrEF EF 35% weight now 204kg, dry weight probably around 185 (back in July) switched back to oral furosemide (40 BID) Entresto resumed pt aware that he need to be complaint with his medications [facility] 11/08 showed normal coronaries 2. pAfib: not on OAC given h/o bleeding. amio decreased to 200, now back up to 400 on carvedilol 6.25 BID follow up with Dr. Rosenberg (EP) as outpt. 3. Debility: C upon discharge. 4. VTE prophylaxis: moderate risk. LMWH. Code Visit Inpatient E&M: 79685 Subs Hosp L2
--- NOTE | 2018-11-08 14:25 | DCINST_ITS ---
- Discharge Diagnoses Current Active Problems: Current Active and Chronic Problems Rotator cuff tear (Chronic) COPD (chronic obstructive pulmonary disease) (Chronic) Acute exacerbation of CHF (congestive heart failure) (Acute) You will use the following diet at home:: Cardiac, Fluid restricted (specify 2000 mls, 1500 mls) - 1500 cc/day Your food should be the consistency of: Regular Your liquids should be the consistency of: Regular/Thin Discharge Activity: Return to Normal Activity Call your doctor if you observe: Fever of 101 or Higher, Shortness of breath, Swelling in the ankles - increased, Increased palpitations (irregular heartbeat) Instructions: What Is Heart Failure?, Heart Failure: Tracking Your Weight, Heart Failure: Making Changes to Your Diet, Heart Failure: Evaluating Your Heart Allergies/Adverse Reactions: Allergies latex Allergy (Verified 11/05/18 18:06) Rash warfarin sodium [From Coumadin] Adverse Reaction (Verified 11/05/18 18:06) Other Medications to take at Discharge Aspirin [Aspirin, Baby] 81 mg PO DAILY@0800 05/02/14 Bupropion HCl 100 mg PO DAILY 05/02/14 Magnesium Oxide [Mag-Ox 400] 400 mg PO DAILY 05/02/14 Sulfasalazine [Azulfidine] 500 mg PO TID 05/02/14 Nitroglycerin (INPATIENT USE) [Nitrostat] 0.4 mg SUBLINGUAL Q5M PRN 07/17/14 Senna [Senokot] 1 tablet PO BID 07/17/14 Cholecalciferol (Vitamin D3) [Vitamin D3] 3,000 unit PO DAILY 05/08/18 Cyanocobalamin (Vitamin B-12) [Vitamin B-12] 1,000 mcg PO DAILY 05/08/18 Fluticasone Furoate [Arnuity Ellipta] 1 puff IH DAILY@1200 05/08/18 Lorazepam [Ativan] 0.5 mg PO QHS 05/08/18 Lorazepam [Ativan] 1 mg PO DAILY 05/08/18 Multivitamin with Minerals [Multiple Vitamin] 1 each PO DAILY 05/08/18 Oxybutynin Chloride [Ditropan Xl] 10 mg PO DAILY 05/08/18 Sacubitril/Valsartan 97-103 mg [Entresto 97 mg-103 mg Tablet] 1 tab PO BID 05/08/18 Amiodarone HCl 400 mg PO DAILY 11/05/18 Oxycodone HCl 10 mg PO BID 11/05/18 Sertraline HCl [Zoloft] 50 mg PO DAILY 11/05/18 Sertraline HCl [Zoloft] 100 mg PO DAILY 11/05/18 Zolpidem Tartrate 10 mg PO QHS 11/05/18 Carvedilol [Coreg (Beta Maria Victoria)] 6.25 mg PO BID #60 tab 11/08/18 Furosemide [Lasix] 40 mg PO BID@1000,1800 #60 tab 11/08/18 Potassium Chloride [K-Dur] 10 meq PO DAILY #30 tab 11/08/18 The following prescriptions were given: Carvedilol [Coreg (Beta Maria Victoria)] 6.25 mg PO BID #60 tab Transmission Status: Pending to [facility] Potassium Chloride [K-Dur] 10 meq PO DAILY #30 tab Transmission Status: Received by [facility] Furosemide [Lasix] 40 mg PO BID@1000,1800 #60 tab Transmission Status: Pending to [facility] Primary Care Physician: Esteban Tim Chi, MD [Primary Care Provider] - Within 1 Week Test Results: Test results from this visit will be discussed in further detail at your follow- up appointment, if applicable. Please Follow Up With: Pepe Romero MD When: 2-4 weeks Please Follow Up With: Casualty Claims Supervisor When: 2-4 weeks Proposed Discharge Date: 11/08/18
--- NOTE | 2018-11-08 14:28 | DS.PCM_ITS ---
Discharge Date and Diagnosis - Problem List Patient Problems: Active and Suspected Problems Acute exacerbation of CHF (congestive heart failure) (Acute) Date of Admission: 11/05/18 Date of Discharge: 11/08/18 - Primary Discharge Diagnosis Active and Suspected Problems Acute exacerbation of CHF (congestive heart failure) (Acute) 1. acute HFrEF * EF 35% * weight now 204kg, dry weight probably around 185 (back in July) * switched back to oral furosemide (40 BID) * Entresto resumed * pt aware that he need to be complaint with his medications * LHC 11/08 showed normal coronaries 2. pAfib: * not on OAC given h/o bleeding. * amio decreased to 200, now back up to 400 * on carvedilol 6.25 BID * follow up with Dr. Rosenberg () as outpt. 3. Debility: * chronic * [facility] upon discharge. 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) Rotator cuff tear (Chronic) COPD (chronic obstructive pulmonary disease) (Chronic) Anxiety and depression (Chronic) History of DVT (deep vein thrombosis) (Chronic) Diastolic heart failure (Chronic) TEX (obstructive sleep apnea) (Chronic) Hyperlipidemia (Chronic) Benign essential hypertension (Chronic) Rheumatoid arthritis (Chronic) dilated right ventricle (Chronic) Cardiomyopathy (Chronic) 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 Electronically Signed: Chino Crowder, at 15:09 EDT , Service support , Christopher Fisher MD: cardiology Operations: None Procedures: 2-D Echocardiogram, Cardiac catheterization Summary of Care Provided: The patient is a 58 year old M resents with a 30 kg weight gain since July. Patient is morbidly obese plus has degenerative joint disease and it is difficult for him to go the bathroom and when he notes that he has to go to the bathroom is unable to make it due to his size as well as his bad knees. The patient has intentionally stopped were significantly cut back on his furosemide. Presents with acute heart failure with weight gain of 30 kg since July. Patient was resumed on IV Lasix and has been diuresing well. Transitioned over to oral Lasix on the and has still continue to lose weight. Initial weights, he presented to, was 216 kg, now down to 204 kg. Dry weight back in July was 185 kg. Patient is not requiring any oxygen. Patient did undergo a left heart catheterization that showed normal coronaries. Echocardiogram showed ejection fraction of 35%. Patient was maintained on his chronic dose of amiodarone 400 mg but his carvedilol was decreased from 12.5 to 6.25 mg twice daily. Since patient will be on 40 mg of Lasix twice daily, he will have potassium replacement prescribed as well. Patient is to follow-up with his letter physiology physician, Dr. Romero, and patient has new fertilizing machine operator up in [facility] to whom he will follow-up with his well. Patient to maintain a fluid restricted diet and for daily weights. Patient will be discharged after he is completed his bedrest in stable condition. [] Patient Problems: Active and Suspected Problems Acute exacerbation of CHF (congestive heart failure) (Acute) - Physical Exam Vital Signs Temp Pulse Resp BP Pulse Ox 36.6 C 62 17 97/54 L 93 11/08/18 13:15 11/08/18 13:15 11/08/18 13:15 11/08/18 13:15 11/08/18 13:15 Oxygen Flow Rate (L/min) 2 Oxygen Delivery Method Room Air Weight: 204.8 kg Body Mass Index (BMI) 77.0 Intake and Output for Last 24 Hours 11/06/18 11/07/18 11/08/18 23:59 23:59 23:59 Intake Total 1230 / 1230 1060 / 1060 120 / 120 Output Total 3750 / 3750 7400 / 7400 875 / 875 Balance -2520 / -2520 -6340 / -6340 -755 / -755 Laboratory Tests Past 24 Hrs 11/08/18 05:25 Sodium 141 Potassium 4.3 Chloride 108 H Carbon Dioxide 29.0 Anion Gap 4 L BUN 28 H Creatinine 1.16 Estim Creat Clear Calc 62.64 Est GFR (MDRD) Af Amer 83 Est GFR (MDRD) Non-Af 69 BUN/Creatinine Ratio 24.1 H Glucose 84 Calcium 8.6 Discharge Diet: 6 Cup Fluid Restriction, 2000 mg Sodium Diet Discharge Activity: Return to Normal Activity Call your doctor if you observe: Fever of 101 or Higher, Shortness of breath, Swelling in the ankles - increased, Increased palpitations (irregular heartbeat) Home Medications: Medications to take at Discharge Aspirin [Aspirin, Baby] 81 mg PO DAILY@0800 05/02/14 Bupropion HCl 100 mg PO DAILY 05/02/14 Magnesium Oxide [Mag-Ox 400] 400 mg PO DAILY 05/02/14 Sulfasalazine [Azulfidine] 500 mg PO TID 05/02/14 Nitroglycerin (INPATIENT USE) [Nitrostat] 0.4 mg SUBLINGUAL Q5M PRN 07/17/14 Senna [Senokot] 1 tablet PO BID 07/17/14 Cholecalciferol (Vitamin D3) [Vitamin D3] 3,000 unit PO DAILY 05/08/18 Cyanocobalamin (Vitamin B-12) [Vitamin B-12] 1,000 mcg PO DAILY 05/08/18 Fluticasone Furoate [Arnuity Ellipta] 1 puff IH DAILY@1200 05/08/18 Lorazepam [Ativan] 0.5 mg PO QHS 05/08/18 Lorazepam [Ativan] 1 mg PO DAILY 05/08/18 Multivitamin with Minerals [Multiple Vitamin] 1 each PO DAILY 05/08/18 Oxybutynin Chloride [Ditropan Xl] 10 mg PO DAILY 05/08/18 Sacubitril/Valsartan 97-103 mg [Entresto 97 mg-103 mg Tablet] 1 tab PO BID 05/08/18 Amiodarone HCl 400 mg PO DAILY 11/05/18 Oxycodone HCl 10 mg PO BID 11/05/18 Sertraline HCl [Zoloft] 50 mg PO DAILY 11/05/18 Sertraline HCl [Zoloft] 100 mg PO DAILY 11/05/18 Zolpidem Tartrate 10 mg PO QHS 11/05/18 Carvedilol [Coreg (Beta Maria Victoria)] 6.25 mg PO BID #60 tab 11/08/18 Furosemide [Lasix] 40 mg PO BID@1000,1800 #60 tab 11/08/18 Potassium Chloride [K-Dur] 10 meq PO DAILY #30 tab 11/08/18 Following Prescrptions Were Given to Patient: Carvedilol [Coreg (Beta Maria Victoria)] 6.25 mg PO BID #60 tab Transmission Status: Pending to [facility] Potassium Chloride [K-Dur] 10 meq PO DAILY #30 tab Transmission Status: Received by [facility] Furosemide [Lasix] 40 mg PO BID@1000,1800 #60 tab Transmission Status: Pending to [facility] Primary Care Physician: Esteban Tim Chi, MD [Primary Care Provider] - Within 1 Week Please Follow Up With: Pepe Romero MD When: 2-4 weeks Please Follow Up With: Cylinder Sander Operator When: 2-4 weeks Patient Instructions: What Is Heart Failure?, Heart Failure: Tracking Your Weight, Heart Failure: Making Changes to Your Diet, Heart Failure: Evaluating Your Heart Disposition: Home with Home Health Minutes spent on discharge:: 32 Patient Condition:: Fair Medical Necessity - Tobacco Use Smoking Status: Never smoker Tobacco Use: Non-smoker Meaningful Use Info Meaningful Use Diagnoses (Choose all that apply): CHF - CHF RHYS/ARB ordered at discharge?: No Reason RHYS/ARB not ordered?: Hypotension Documented LVEF (%): 35 Code Visit Inpatient E&M: [id number] Disch Hosp
--- NOTE | 2018-11-08 14:46 | CASEMGMT ---
Per Dr. Arzola, pt needs sent home with a bariatric bedside commode. Pt states that his cpap is set up through [facility] and would like to use them at this time. Call to Claudia at [facility] and they do have a bariatric BSC available at this time. Order obtained and faxed with facesheet and copies of insurance cards to [facility] at this time. Pt updated on all and voices understanding. Pt voices no further questions/concerns/needs at this time. SStxu RN CM
--- NOTE | 2018-11-08 16:45 | NURSING ---
PT BEDREST COMPLETE. AMBULATED PT, TOLERATED WELL. VSS. SITE C/D/I. OKAY TO D/C.
--- NOTE | 2018-11-11 14:48 | CASEMGMT ---
CONCHA REARDON DC PHONE CALL DC DATE: 11/08/18 DC Disposition: Home Diagnosis on Discharge: Exacerbation of CHF LACE/STRATA: 01/26 Intro role of CM to patient via phone. Reviewed medications, instructions. Pt does not have questions. States he has made appointments for f/u with his PCP and cardiology. No care improvement suggestions given. Pt states his care was very good and the nurses and EMAIL MARKETING INTERN's were excellent. Villa CALDWELLN RN ACM
== END 2018-11-08 16:57 | disposition home or self-care (01) | DRG 287 ==
LOC: ED 14:48 → PCU 18:54
PROVIDERS: Physician Assistant; Admitting Provider Family Medicine; Emergency Provider Emergency Medicine; Family Provider Family Medicine Geriatric Medicine; PCP Family Medicine Geriatric Medicine; Referring Provider Family Medicine
DX: I11.0 Hypertensive heart disease with heart failure (principal); Z68.45 Body mass index [BMI] 70 or greater, adult; R53.81 Other malaise; I50.43 Acute on chronic combined systolic (congestive) and diastolic (congestive) heart failure; I48.0 Paroxysmal atrial fibrillation; G47.33 Obstructive sleep apnea (adult) (pediatric); M06.9 Rheumatoid arthritis, unspecified; F41.9 Anxiety disorder, unspecified; F32.9 Major depressive disorder, single episode, unspecified; E78.5 Hyperlipidemia, unspecified; Z86.718 Personal history of other venous thrombosis and embolism; Z95.810 Presence of automatic (implantable) cardiac defibrillator; I45.6 Pre-excitation syndrome; E66.01 Morbid (severe) obesity due to excess calories; M17.0 Bilateral primary osteoarthritis of knee
CPT/HCPCS: 36415; 71045; 80048; 80061; 81001; 83735; 83880; 84443; 84484; 85025; 93005; 93306; 93458; 94002; 94640; 97162; 97166; 97530; 97802; 99285; J7030; Q9957; Q9967; A4216; C1769; C1894; C8929; J1940

== ENCOUNTER → 2018-11-18 15:21 | Outpatient (CLI) | payer MEDICARE, SELFPAY ==
[2018-11-18 13:07] VITALS: BMI 71.1
[2018-11-18 16:28] LABS: Anion Gap 7 (5-15); BUN 24 mg/dL (7-18); BUN/Creat Ratio 21.8 RATIO (10-20); Calcium,Total 9.1 mg/dL (8.5-10.1); Chloride 105 mmol/L (98-107); EST Glomerular Filtration Rate 73 mL/min (>60); Est Glom Filt Rate - Afr Amer 88 mL/min (>60); Glucose 87 mg/dL (74-106); Potassium 4.7 mmol/L (3.5-5.1); Sodium Level 140 mmol/L (136-145)
== END ==
PROVIDERS: Family Provider Family Medicine Geriatric Medicine; PCP Family Medicine Geriatric Medicine; Visit Provider Family Medicine Geriatric Medicine
DX: E87.6 Hypokalemia (principal)
CPT/HCPCS: 36415; 80048

== ENCOUNTER → 2018-12-02 16:10 | Outpatient (CLI) | payer MEDICARE, SELFPAY ==
[2018-11-18 13:07] VITALS: BMI 71.1
[2018-12-02 17:36] LABS: Anion Gap 8 (5-15); BUN 33 mg/dL (7-18); BUN/Creat Ratio 27.7 RATIO (10-20); Calcium,Total 9.2 mg/dL (8.5-10.1); Chloride 105 mmol/L (98-107); Creatinine, Serum 1.19 mg/dL (0.70-1.30); EST Glomerular Filtration Rate 67 mL/min (>60); Est Glom Filt Rate - Afr Amer 81 mL/min (>60); Glucose 85 mg/dL (74-106); Potassium 4.4 mmol/L (3.5-5.1); Sodium Level 140 mmol/L (136-145)
== END ==
PROVIDERS: Family Provider Family Medicine Geriatric Medicine; PCP Family Medicine Geriatric Medicine; Visit Provider Family Medicine Geriatric Medicine
DX: E87.6 Hypokalemia (principal)
CPT/HCPCS: 36415; 80048

== ENCOUNTER → 2018-12-19 16:31 | Outpatient (CLI) | payer MEDICARE, SELFPAY ==
[2018-11-18 13:07] VITALS: BMI 71.1
[2018-12-19 17:49] LABS: Anion Gap 6 (5-15); BUN 43 mg/dL (7-18); BUN/Creat Ratio 32.3 RATIO (10-20); Calcium,Total 9.1 mg/dL (8.5-10.1); Chloride 104 mmol/L (98-107); Creatinine, Serum 1.33 mg/dL (0.70-1.30); EST Glomerular Filtration Rate 59 mL/min (>60); Est Glom Filt Rate - Afr Amer 71 mL/min (>60); Glucose 102 mg/dL (74-106); Potassium 4.5 mmol/L (3.5-5.1); Sodium Level 138 mmol/L (136-145)
== END ==
PROVIDERS: Family Provider Family Medicine Geriatric Medicine; PCP Family Medicine Geriatric Medicine; Visit Provider Family Medicine Geriatric Medicine
DX: I10 Essential (primary) hypertension (principal)
CPT/HCPCS: 36415; 80048

== ENCOUNTER 2019-01-27 06:26 | Day surgery (SDC) | payer MEDICARE, SELFPAY ==
[2018-11-18 13:07] VITALS: BMI 71.1
[2019-01-27 07:02] VITALS: BP 90/61; RESP 18; TEMP 36.3; O2SAT 95; BMI 64.3
--- NOTE | 2019-01-27 08:10 | RAD_ITS ---
STUDY: RIGHT L3-S1 BILATERAL FACET JOINT INJECTION. REASON FOR EXAM: Male, 59 years old. Chronic back pain. FLUOROSCOPY TIME (if supplied): ( 44.1 seconds ) minutes/seconds TECHNIQUE: Intraoperative fluoroscopic imaging provided for bilateral L3-S1 facet joint injection. COMPARISON: None. FINDINGS: Fluoroscopic services provided for lateral L3-S1 facet joint injections. RAD/L/S Spine w Bend Min 6 Vw IMPRESSION: Intraoperative fluoroscopic assistance was provided. Electronically Signed: Chino Crowder, at 14:11 EST , Service support ,
[2019-01-27] MEDS: MethylPREDNISolone Acetate 80 MG/ML Vial (08:15)
[2019-01-27] MEDS: Bupivacaine 0.25% 30 ML Vial (08:15)
[2019-01-27 08:32] VITALS: BP 90/55; BP 90/61; PULSE 55; RESP 18; TEMP 36.3; O2SAT 92
[2019-01-27 08:35] VITALS: BP 86/56; BP 90/61; PULSE 60; RESP 18; O2SAT 92
[2019-01-27 08:40] VITALS: BP 90/61; BP 91/55; PULSE 57; RESP 18; O2SAT 94
[2019-01-27 08:45] VITALS: BP 90/61; BP 99/49; PULSE 54; RESP 18; O2SAT 94
[2019-01-27 09:10] VITALS: BP 90/61
--- NOTE | 2019-01-27 10:01 | OP.PCM_ITS ---
Report of Operation Date of Procedure: 01/27/19 Description of Surgical Findings:: PREOPERATIVE DIAGNOSIS: Lumbosacral spondylosis, lumbosacral degenerative disc disease, and lumbar facet arthropathy POSTOPERATIVE DIAGNOSIS: Lumbosacral spondylosis, lumbosacral degenerative disc disease, and lumbar facet arthropathy PROCEDURE PERFORMED: Bilateral lumbar facet steroid injection, L3,L4, L5, and S1. ANESTHESIA: MAC. BLOOD LOSS: Minimal. COMPLICATIONS: None. DESCRIPTION OF PROCEDURE: History and physical of today was reviewed. Risks and benefits of the procedure were explained. The patient understood and agreed to proceed. Informed consent was obtained. IV inserted per routine protocol. The patient was taken to the operating room and placed in the prone position with a pillow positioned underneath the abdomen. The lower back area was prepped and draped in a sterile fashion using iodine x3. Under fluoroscopy guidance on AP view, the L4 through S1 vertebral bodies were visualized. The skin and subcutaneous tissue was anesthetized with approximately 5 mL of 1% lidocaine using a 25-gauge regular needle. Under direct visualization with fluoroscopy, at approximately 25-degree angle, starting on the left L3, ending on the right L3, passing through the L4, L5 and S1 bilaterally, using a 22-gauge 5 inch spinal needle, the needle was advanced via the skin. The tip of the needle was maneuvered and directed towards the superior medial gutter of the transverse process at the vicinity of the medial branch. Once tip of the needle was in contact with the bone, the needle was pulled approximately 2 mm off the bone. After negative aspiration for blood or CSF and confirmation on AP, obl ique as well as lateral view, a total of 16 mL of preservative-free 0.25% Marcaine with 80 mg of Depo-Medrol was injected in divided doses between those six levels. The needles were then removed intact. The patient experienced no sign or symptoms of intrathecal or intravascular injection. The patient experienced no paresthesia. The procedure was completed without any apparent difficulty or any complications. The patient appeared to tolerate it well. ASSESSMENT AND PLAN: This is a 59-year-old male with lumbosacral spondylosis, lumbosacral degenerative disc disease, and lumbar facet arthropathy, status post bilateral lumbar facet steroid injection L3 through S1. The patient will continue his current medications. The patient will follow in approximately 2 weeks for evaluation.
== END 2019-01-27 09:11 | disposition home or self-care (01) ==
LOC: SDC 06:26 → AC 06:28
PROVIDERS: Family Provider Family Medicine Geriatric Medicine; PCP Family Medicine Geriatric Medicine; Referring Provider Anesthesiology Pain Medicine; Visit Provider Anesthesiology Pain Medicine
PROC: 3E0T3BZ Introduction of Anesthetic Agent into Peripheral Nerves and Plexi, Percutaneous Approach (ICD-10-PCS; CPT 64493; principal; 2019-01-27 08:05)
DX: M51.37 Other intervertebral disc degeneration, lumbosacral region (principal); M47.817 Spondylosis without myelopathy or radiculopathy, lumbosacral region; M51.36 Other intervertebral disc degeneration, lumbar region; M46.96 Unspecified inflammatory spondylopathy, lumbar region; J44.9 Chronic obstructive pulmonary disease, unspecified; G47.33 Obstructive sleep apnea (adult) (pediatric); M48.10 Ankylosing hyperostosis [Forestier], site unspecified; M17.0 Bilateral primary osteoarthritis of knee; M19.019 Primary osteoarthritis, unspecified shoulder; E66.01 Morbid (severe) obesity due to excess calories; Z79.899 Other long term (current) drug therapy; M19.012 Primary osteoarthritis, left shoulder; M41.9 Scoliosis, unspecified
CPT/HCPCS: 01922; 64493; 64494; 64495; 64483; 72114; J7120

== ENCOUNTER → 2019-02-27 14:10 | Outpatient (CLI) | payer MEDICARE, SELFPAY ==
[2019-02-27 16:50] LABS: Basophil# 0.05 X10^3/uL; Basophil% 0.7 % (0-1); Eosinophil# 0.27 X10^3/uL; Eosinophils% 3.8 % (0-5); Hematocrit 41.2 % (40-54); Hemoglobin 13.7 g/dL (13.0-16.5); Lymphocyte % 12.7 % (19-41); Mean Corp Hgb Conc 33.3 g/dL (32-36); Mean Corpuscular Hgb 34.8 pg (27.0-32.0); Mean Corpuscular Volume 104.6 fL (80-94); Mean Platelet Vol. 11.2 fl (6.2-12.0); Monocyte# 0.84 X10^3/uL; Monocyte% 11.8 % (0-10); NRBC Flagged by Analyzer 0 % (0-5); Neutrophil # 5.03 X10^3/uL (2.7-7.7); Neutrophil % 70.9 % (47-70); Platelet Count 151 K/mm3 (150-450); RBC Distribution Width CV 15.3 % (11.6-14.6); RBC Distribution Width SD 58.7 fl (35.1-43.9); Red Blood Count 3.94 M/mm3 (4.6-6.2); White Blood Count 7.1 K/mm3 (4.4-11.0)
[2019-02-27 17:41] LABS: ALB/GLOB Ratio 1.1 RATIO (0.9-2.4); AST(SGOT) 20 U/L (15-37); Alanine Aminotransfer ALT/SGPT 25 U/L (16-61); Alkaline Phosphatase 98 U/L (45-117); Anion Gap 6 (5-15); BUN 51 mg/dL (7-18); BUN/Creat Ratio 37.2 RATIO (10-20); Calcium,Total 8.9 mg/dL (8.5-10.1); Chloride 105 mmol/L (98-107); Creatinine, Serum 1.37 mg/dL (0.70-1.30); EST Glomerular Filtration Rate 57 mL/min (>60); Est Glom Filt Rate - Afr Amer 68 mL/min (>60); Globulin 3.7 g/dL (2.2-4.2); Glucose 92 mg/dL (74-106); Potassium 5.2 mmol/L (3.5-5.1); Protein, Total 7.7 g/dL (6.4-8.2); Sodium Level 136 mmol/L (136-145); Thyroid Stim Hormone (TSH) 3.91 uIU/mL (0.358-3.74)
[2019-02-27 18:27] LABS: Vitamin D,25 Hydroxy 46.8 ng/mL (29.95-100.01)
== END ==
PROVIDERS: Family Provider Family Medicine Geriatric Medicine; PCP Family Medicine Geriatric Medicine; Visit Provider Family Medicine Geriatric Medicine
DX: E55.9 Vitamin D deficiency, unspecified (principal); I10 Essential (primary) hypertension; E23.6 Other disorders of pituitary gland
CPT/HCPCS: 36415; 80053; 82306; 84403; 84443; 85025

== ENCOUNTER → 2019-03-20 09:03 | Outpatient (CLI) | payer MEDICARE, SELFPAY ==
[2019-03-20 10:16] LABS: Anion Gap 6 (5-15); BUN 44 mg/dL (7-18); BUN/Creat Ratio 29.7 RATIO (10-20); Calcium,Total 9.1 mg/dL (8.5-10.1); Chloride 106 mmol/L (98-107); Creatinine, Serum 1.48 mg/dL (0.70-1.30); EST Glomerular Filtration Rate 52 mL/min (>60); Est Glom Filt Rate - Afr Amer 63 mL/min (>60); Glucose 91 mg/dL (74-106); Potassium 4.8 mmol/L (3.5-5.1); Sodium Level 141 mmol/L (136-145); Thyroid Stim Hormone (TSH) 3.47 uIU/mL (0.358-3.74)
== END ==
LOC: LAB.FUTURE 09:07 → LAB 09:09
PROVIDERS: Family Provider Family Medicine Geriatric Medicine; PCP Family Medicine Geriatric Medicine; Referring Provider Family Medicine Geriatric Medicine; Visit Provider Family Medicine Geriatric Medicine
DX: E03.9 Hypothyroidism, unspecified (principal); E87.5 Hyperkalemia
CPT/HCPCS: 36415; 80048; 84443

== ENCOUNTER → 2019-04-24 09:07 | Outpatient (CLI) | payer MEDICARE, MEDICAID, SELFPAY ==
[2019-04-24 10:49] LABS: Anion Gap 7 (5-15); Chloride 107 mmol/L (98-107); Potassium 4.7 mmol/L (3.5-5.1); Sodium Level 139 mmol/L (136-145); Thyroid Stim Hormone (TSH) 4.02 uIU/mL (0.358-3.74)
== END ==
PROVIDERS: PCP Family Medicine Geriatric Medicine; Referring Provider Internal Medicine Pulmonary Disease; Visit Provider Internal Medicine Pulmonary Disease
DX: E03.9 Hypothyroidism, unspecified (principal); G47.33 Obstructive sleep apnea (adult) (pediatric); J45.909 Unspecified asthma, uncomplicated
CPT/HCPCS: 36415; 80051; 84443

== ENCOUNTER → 2019-06-09 08:29 | Outpatient (CLI) | payer MEDICARE, MEDICAID, SELFPAY ==
[2019-05-22 14:04] VITALS: BMI 67.6
[2019-06-09 09:58] LABS: AST(SGOT) 21 U/L (15-37); Alanine Aminotransfer ALT/SGPT 21 U/L (16-61); Albumin, Serum 4.1 g/dL (3.2-5.0); Alkaline Phosphatase 122 U/L (45-117); Cholesterol 128 mg/dL (200); Globulin 4.3 g/dL (2.2-4.2); High Density Lipoprotein 44 mg/dL; Protein, Total 8.4 g/dL (6.4-8.2); Triglycerides 74 mg/dL; Very Low Density Lipoprotein 15 mg/dL (5-40)
== END ==
PROVIDERS: PCP Family Medicine Geriatric Medicine; Referring Provider Internal Medicine Cardiovascular Disease; Visit Provider Internal Medicine Cardiovascular Disease
DX: E78.5 Hyperlipidemia, unspecified (principal)
CPT/HCPCS: 36415; 80061; 80076

== ENCOUNTER → 2019-07-30 14:32 | Outpatient (CLI) | payer MEDICARE, MEDICAID, SELFPAY ==
[2019-07-17 15:14] VITALS: BMI 67.6
--- NOTE | 2019-07-30 14:33 | CT_ITS ---
STUDY: CT ABDOMEN AND PELVIS WITHOUT CONTRAST REASON FOR EXAM: Male, 59 years old. Ventral hernia with pain, eval for possible surgery. Prior bariatric surgery. RADIATION DOSAGE (If Supplied By Facility): CTDIvol = ( 24.17 ) mGy, DLP = ( 3899.25 ) mGycm TECHNIQUE: Transaxial images were obtained from the dome of the diaphragm to the symphysis pubis without oral contrast, and without intravenous contrast. Sagittal and coronal images were reconstructed. Individualized dose optimization techniques were used for this CT. COMPARISON: Comparison is made with prior examination dated June 03, 2015. FINDINGS: Mild increased markings at the left lung base suggestive of scarring. Cardiomegaly. There is decreased attenuation of the liver consistent with steatosis. There are surgical clips in the gallbladder fossa consistent with a prior cholecystectomy. Normal spleen. Normal pancreas. Normal bilateral adrenal glands. Normal right kidney. Normal left kidney. The seventh of prior bariatric surgery with a subtotal resection of the stomach. Normal small intestine. Normal colon. The appendix is visualized and appears normal. Normal abdominal aorta. Normal inferior vena cava. Normal retroperitoneum. Normal urinary bladder. There is evidence of diffuse thickening of the skin with increased markings in the subcutaneous fat of the panniculus of the lower abdomen. Left-sided ventral hernia. No small bowel loops are seen at this time with her. There are diffuse degenerative changes of the visualized lumbar spine. CT/Abdomen/Pelvis without Cont IMPRESSION: Diffuse thickening of the skin of the panniculus of the lower abdomen and pelvis with diffuse increased markings in the subcutaneous fat suggestive of a possible cellulitis. Electronically Signed: Chino Crowder, at 15:43 EDT , Service support ,
== END ==
PROVIDERS: PCP Family Medicine Geriatric Medicine; Referring Provider Surgery; Visit Provider Surgery
DX: K43.9 Ventral hernia without obstruction or gangrene (principal); E65 Localized adiposity; M79.3 Panniculitis, unspecified; I89.0 Lymphedema, not elsewhere classified; M54.5 Low back pain
CPT/HCPCS: 74176

== ENCOUNTER 2019-08-25 06:44 | Day surgery (SDC) | payer MEDICARE, MEDICAID, SELFPAY ==
[2019-07-17 15:14] VITALS: BMI 67.6
[2019-08-25 07:11] VITALS: BP 121/63; PULSE 61; RESP 16; TEMP 36.3; O2SAT 99; BMI 64.0
[2019-08-25] MEDS: Lactated Ringers 1,000 ML 100 ML IV (07:23)
[2019-08-25] MEDS: MethylPREDNISolone Acetate 80 MG/ML Vial (08:51)
[2019-08-25] MEDS: Bupivacaine 0.25% 30 ML Vial (08:51)
--- NOTE | 2019-08-25 14:20 | OP.PCM_ITS ---
Report of Operation Date of Procedure: 08/25/19 Description of Surgical Findings:: PREOPERATIVE DIAGNOSIS: Osteoarthritis of the left shoulder POSTOPERATIVE DIAGNOSIS: Osteoarthritis of the left shoulder PROCEDURE PERFORMED: Left suprascapular nerve steroid injection under ultrasound guidance. ANESTHESIA: Local. BLOOD LOSS: Minimal. COMPLICATIONS: None. DESCRIPTION OF PROCEDURE: History and physical of today was reviewed. Risks and benefits of the procedure were explained. The patient understood and agreed to proceed. Informed consent was obtained. IV inserted per routine protocol. The patient was taken to the operating room and placed in the sitting position. The left shoulder and scapular area was prepped and draped in a sterile fashion using iodine x3. Under direct visualization with ultrasound guidance, the left suprascapular nerve was visualized under ultrasound guidance the skin and subcutaneous tissue was anesthetized with approximately 3 mL of 1% lidocaine usi ng a 25-gauge regular needle on an in-plane technique. Under direct visualization with ultrasound guidance, using a 22-gauge 2-inch nerve block needle, the needle was passed through the skin. The tip of the needle was maneuvered and directed towards the left suprascapular nerve under direct visualization with ultrasound. Once the tip of the needle was at the vicinity of the nerve, after negative aspiration for blood and confirmation with ultrasound, a total of 10 mL of preservative-free 0.25% Marcaine with 40 mg of Depo-Medrol was injected in and around the suprascapular nerve, the needle was then removed intact. The patient experienced no sign or symptoms of intravascular injection. The patient experienced no paresthesia. The procedure was completed without any apparent difficulty or any complications. The patient appeared to tolerate it well. Assessment and plan: This is a 59-year-old male with osteoarthritis of the left shoulder nonoperative left shoulder pain status post left suprascapular nerve steroid injection under ultrasound guidance, patient will continue his current medications, patient will follow approximately 2 weeks for reevaluation.
== END 2019-08-25 09:46 | disposition home or self-care (01) ==
LOC: SDC 06:45 → AC 06:46
PROVIDERS: PCP Family Medicine Geriatric Medicine; Referring Provider Anesthesiology Pain Medicine; Visit Provider Anesthesiology Pain Medicine
PROC: 3E0U3GC Introduction of Other Therapeutic Substance into Joints, Percutaneous Approach (ICD-10-PCS; CPT 20610; principal; 2019-08-25 08:55)
DX: M19.012 Primary osteoarthritis, left shoulder (principal); J44.9 Chronic obstructive pulmonary disease, unspecified; G47.33 Obstructive sleep apnea (adult) (pediatric); M10.9 Gout, unspecified; I50.9 Heart failure, unspecified; M48.10 Ankylosing hyperostosis [Forestier], site unspecified; M47.817 Spondylosis without myelopathy or radiculopathy, lumbosacral region; M41.9 Scoliosis, unspecified; M51.37 Other intervertebral disc degeneration, lumbosacral region; M17.0 Bilateral primary osteoarthritis of knee; M19.019 Primary osteoarthritis, unspecified shoulder; E66.01 Morbid (severe) obesity due to excess calories
CPT/HCPCS: 64418; J7120

== ENCOUNTER → 2019-09-01 15:01 | Outpatient (CLI) | payer MEDICARE, MEDICAID, SELFPAY ==
[2019-08-25 07:11] VITALS: BMI 64.0
[2019-09-01 17:10] LABS: Absolute Lymphocyte Count 0.77 X10^3/uL (0.83-4.51); Absolute Neutrophil Count 5.7 X10^3/uL (2.0-7.7); Basophil# 0.04 X10^3/uL; Basophil% 0.5 % (0-1); Eosinophil# 0.22 X10^3/uL; Eosinophils% 2.9 % (0-5); Hematocrit 40.5 % (40-54); Hemoglobin 13.3 g/dL (13.0-16.5); Lymphocyte # 0.77 X10^3/ul (4.0); Lymphocyte % 10.3 % (19-41); Mean Corp Hgb Conc 32.8 g/dL (32-36); Mean Corpuscular Hgb 34.3 pg (27.0-32.0); Mean Corpuscular Volume 104.4 fL (80-94); Mean Platelet Vol. 11.1 fl (6.2-12.0); Monocyte# 0.75 X10^3/uL; Monocyte% 10.1 % (0-10); NRBC Flagged by Analyzer 0 % (0-5); Neutrophil # 5.66 X10^3/uL (2.7-7.7); Neutrophil % 75.9 % (47-70); Platelet Count 147 K/mm3 (150-450); RBC Distribution Width CV 14.5 % (11.6-14.6); RBC Distribution Width SD 55.3 fl (35.1-43.9); Red Blood Count 3.88 M/mm3 (4.6-6.2); White Blood Count 7.5 K/mm3 (4.4-11.0)
[2019-09-01 17:41] LABS: AST(SGOT) 15 U/L (15-37); Alanine Aminotransfer ALT/SGPT 26 U/L (16-61); Albumin, Serum 3.8 g/dL (3.2-5.0); Alkaline Phosphatase 86 U/L (45-117); Anion Gap 9 (5-15); BUN 51 mg/dL (7-18); Calcium,Total 8.9 mg/dL (8.5-10.1); Chloride 106 mmol/L (98-107); EST Glomerular Filtration Rate 51 mL/min (>60); Est Glom Filt Rate - Afr Amer 62 mL/min (>60); Globulin 3.8 g/dL (2.2-4.2); Glucose 93 mg/dL (74-106); PSA,Total - Annual Screen 0.69 ng/mL (0.00-4.00); Potassium 5.1 mmol/L (3.5-5.1); Protein, Total 7.6 g/dL (6.4-8.2); Sodium Level 139 mmol/L (136-145); Thyroid Stim Hormone (TSH) 2.58 uIU/mL (0.358-3.74)
== END ==
PROVIDERS: PCP Family Medicine Geriatric Medicine; Visit Provider Family Medicine Geriatric Medicine
DX: E23.6 Other disorders of pituitary gland (principal); I10 Essential (primary) hypertension; Z12.5 Encounter for screening for malignant neoplasm of prostate
CPT/HCPCS: 36415; 80053; 84153; 84403; 84443; 85025; G0103

== ENCOUNTER 2019-09-29 05:32 | Day surgery (SDC) | payer MEDICARE, MEDICAID, SELFPAY ==
[2019-09-29] VITALS (13 sets, daily range): BP systolic 77–126; BP diastolic 45–92; PULSE 43–60; RESP 16; TEMP 36.1–36.5; O2SAT 94–98; BMI 64.0
[2019-09-29] MEDS: Lactated Ringers 1,000 ML 100 ML IV (06:50)
--- NOTE | 2019-09-29 07:39 | SUR.PREOP ---
vs after 500cc bolus, anesthesia ok to go to OR per Dr Watts
[2019-09-29] MEDS: MethylPREDNISolone Acetate 80 MG/ML Vial (07:50)
[2019-09-29] MEDS: Bupivacaine 0.25% 30 ML Vial (07:50)
--- NOTE | 2019-09-29 08:53 | PCM.OPRPT ---
Report of Operation Date of Procedure: 09/29/19 Description of Surgical Findings:: PREOPERATIVE DIAGNOSIS: Osteoarthritis of the left shoulder, nonoperative shoulder pain POSTOPERATIVE DIAGNOSIS: Osteoarthritis of the left shoulder, nonoperative shoulder pain PROCEDURE PERFORMED: Radiofrequency ablation of left suprascapular nerve under ultrasound guidance. ANESTHESIA: MAC BLOOD LOSS: Minimal. COMPLICATIONS: None. DESCRIPTION OF PROCEDURE: History and physical of today was reviewed. Risks and benefits of the procedure were explained. The patient understood and agreed to proceed. Informed consent was obtained. IV inserted per routine protocol. The patient was taken to the operating room and placed in the sitting position. The left shoulder and scapular area was prepped and draped in a sterile fashion using iodine x3. Under direct visualization with ultrasound guidance, the left suprascapular nerve was visualized under ultrasound guidance the skin and subcutaneous tissue was anesthetized with approximately 5 mL of 1% lidocaine using a 25-gauge regular needle on an in-plane technique. Under direct visualization with ultrasound guidance, using a 22-gauge 2 1/2-inch nerve curved active tip radiofrequency ablation needle, the needle was passed through the skin. The tip of the needle was maneuvered and directed towards the left suprascapular nerve under direct visualization with ultrasound, impedance was recorded to be 249 ohm, motor evoked potential was then initiated to 1.5 V without any apparent motor response up at the shoulder area or down the left arm once the tip of the needle was at the vicinity of the nerve, after negative aspiration for blood and confirmation with ultrasound, a total of 2 mL of preservative-free, lidocaine was injected at the site and then radiofrequency ablation probe was then reinserted at the needle under repeated ultrasound confirmation radiofrequency ablation took place to approximately 80 ?C for 90 seconds at that level the needle was then removed intact then a total of 3 cc of 0.25% Marcaine with 40 mg of Depo-Medrol was injected in and around the suprascapular nerve, the needle was then removed intact. The patient experienced no sign or symptoms of intravascular injection. The patient experienced no paresthesia. The procedure was completed without any apparent difficulty or any complications. The patient appeared to tolerate it well, motor and sensory was preserved without any changes prior to the procedure. Assessment and plan: This is a 59-year-old male with osteoarthritis of the left shoulder, nonoperative left shoulder pain status post frequency ablation of left suprascapular nerve under ultrasound guidance, patient will continue his current medications, patient will follow approximately 2 weeks for reevaluation.
== END 2019-09-29 10:21 | disposition home or self-care (01) ==
LOC: SDC 05:36 → ACINP 05:51 → AC 06:45
PROVIDERS: PCP Family Medicine Geriatric Medicine; Referring Provider Anesthesiology Pain Medicine; Visit Provider Anesthesiology Pain Medicine
PROC: (CPT 64640; principal; 2019-09-29 07:15)
DX: M19.012 Primary osteoarthritis, left shoulder (principal); M25.512 Pain in left shoulder; I10 Essential (primary) hypertension; I45.6 Pre-excitation syndrome; J44.9 Chronic obstructive pulmonary disease, unspecified; M10.9 Gout, unspecified; G47.33 Obstructive sleep apnea (adult) (pediatric); M48.10 Ankylosing hyperostosis [Forestier], site unspecified; M47.817 Spondylosis without myelopathy or radiculopathy, lumbosacral region; M51.37 Other intervertebral disc degeneration, lumbosacral region; M17.0 Bilateral primary osteoarthritis of knee; M19.019 Primary osteoarthritis, unspecified shoulder; E66.01 Morbid (severe) obesity due to excess calories; Z79.899 Other long term (current) drug therapy
CPT/HCPCS: 01991; 64640; J7120

== ENCOUNTER 2019-10-20 11:39 | Inpatient (IN) | payer MEDICARE, MEDICAID, SELFPAY ==
[2019-09-29 06:36] VITALS: BMI 64.0
[2019-10-20 11:00] VITALS: BP 124/99; PULSE 64; RESP 18; TEMP 36.9; O2SAT 98
[2019-10-20 12:04] VITALS: BMI 64.0; BMI 64.1
--- NOTE | 2019-10-20 14:26 | EKGRS_ITS ---
Test Reason : PRE-OP Blood Pressure : / mmHG Vent. Rate : 117 BPM Atrial Rate : 117 BPM P-R Int : 000 ms QRS Dur : 004 ms QT Int : 286 ms P-R-T Axes : 000 000 182 degrees QTc Int : 398 ms Sinus Rhythm with 1st degree AV Block Indeterminate axis Nonspecific ST and T wave abnormality Abnormal ECG When compared with ECG of 08-NOV-2018 06:10, Junctional rhythm has replaced Atrial fibrillation Confirmed by JAMAL KINNEY, SHIELA ([id number]), editorial clerk ABHIJIT CARROLL ([id number]) on 10/27/2019 2:08:05 PM Referred By: Anthony Pisano Confirmed By:LB BERRY MD
--- NOTE | 2019-10-20 14:38 | PCM.HP.BLA ---
History and Physical Date of Admission: 10/20/19 HISTORY OF PRESENT ILLNESS 59 year old male presents for evaluation for an abdominal panniculectomy. He had ventral hernia repair at the [facility] 2 years ago in preparation for a gastric bypass procedure to help him lose weight, (gastric sleeve). He states that he went from 500 lbs down to 406 lbs. He was told to get down to 350 lbs before they would consider the gastric bypass procedure. He has difficulty walking due to the size of his pannus and he has severe back pain. He walks with a walker which is difficult because of a rotator cuff problem in his shoulders. He denies fever. He denies bloating. He denies nausea and vomiting. He goes to Pain Management for his lumbar back pain. PAST MEDICAL HISTORY CHF Arthritis Atrial fibrillation Hypertension Cardiomyopathy COPD Hyperlipidemia Lumbar back pain Lymphedema TEX Pancreatitis Ventral hernia WFW syndrome DVT Ulcer PAST SURGICAL HISTORY Cardiac ablation Cholecystectomy Gastric surgery Left heart catheterization Ventral hernia repair with mesh ICD (Implantable cardioverter-defibrillator) ALLERGIES latex warfarin sodium [From Coumadin] MEDICATIONS Aspirin [Aspirin, Baby] Bupropion HCl Magnesium Oxide [Mag-Ox 400] Nitroglycerin [Nitrostat] Cholecalciferol (Vitamin D3) [Vitamin D3] Cyanocobalamin (Vitamin B-12) [Vitamin B-12] Fluticasone Furoate [Arnuity Ellipta] Lorazepam [Ativan] Multivitamin with Minerals [Multiple Vitamin] Sacubitril/Valsartan [Entresto Tablet] Amiodarone HCl Oxycodone HCl Sertraline HCl [Zoloft] Zolpidem Tartrate Furosemide [Lasix] carvedilol docusate sodium levothyroxine omeprazole oxybutynin chloride primidone spironolactone tizanidine FAMILY HISTORY Sister - Arthritis Brother - Psychiatric care SOCIAL HISTORY Smoking Status: Never smoker REVIEW OF SYSTEMS General - Denies fever. He has fatigue and recent weight loss of 100 lbs. He is morbidly obese. Eyes - Denies cataracts and glaucoma. ENT - Denies nasal congestion and sore throat. Endocrine - Has excessive thirst and urination. Hypothyroidism. atSkin - Denies suspicious lesions and skin cancer. Lymphedema of his pannus. Has abdominal wall skin crease intertrigo. Musculoskeletal - Has joint pain, joint stiffness, weakness of muscles and joints, back pain, and arthritis. He was told he needs knee replacements and rotator cuff surgery after he loses more weight. Neuro - Denies headaches. Cardiovascular - Heart ablations in 1998 and 2000 for WPW and history of Afib. Has chest pain. Has fatigue. Psych - Denies anxiety. Has depression. Respiratory - Denies chronic cough. Has shortness of breath. Has sleep apnea, uses Bipap. Gastrointestinal - Denies nausea, vomiting, diarrhea. Has constipation. Has a history of gallstones and had Cholecystectomy 1989. Hematological - He had a history of easy bruising in the past with blood clots but the Coumadin caused GI bleeding. Genitourinary - History of urinary incontinence/dribbling and frequency. Denies hematuria. PHYSICAL EXAMINATION General - Alert and Oriented. HEENT - PERRL. EOMI. Throat is clear. Neck - Supple and nontender. No cervical adenopathy. Lungs - Clear to auscultation. Heart - Regular rate and rhythm. Abdomen - Soft and nondistended. Morbidly obese with massive panniculus that extends to his knees. There is associated panniculitis. It is very heavy. He has dependent lymphedema. No ulcerations. The dependent portion is tender to palpation. No evidence of redness or fluctuance. Has abdominal wall skin crease intertrigo. Could not discern if there are any additional hernias secondary to the large size of the panniculus. No abdominal wall scarring. Has had laparoscopic incisions. Extremities - FROM. No axillary adenopathy. Radial pulses are palpable. Neuro - CN II-XII grossly intact. Psych - Normal mood and affect. ASSESSMENT 1. Massive abdominal panniculus with panniculitis. 2. Recent weight loss. 3. Abdominal wall skin crease intertrigo. 4. Painful lymphedema lower abdominal wall. 5. Lumbar back pain. 6. History of laparoscopic ventral hernia repair with mesh. 7. History of DVT. PLAN Patient has a massive abdominal panniculus with panniculitis. He has associated cardiac issues and has an implanted defibrillator. He is being managed by Dr. Fisher. Patient would benefit from an abdominal panniculectomy. This should help with his painful symptomatology. He had a CT Abdomen/Pelvis on 07/30/19. It showed mild increased markings at the left lung base suggestive of scarring. Cardiomegaly. There is decreased attenuation of the liver consistent with steatosis. There are surgical clips in the gallbladder fossa consistent with a prior cholecystectomy. Normal spleen. Normal pancreas. Normal bilateral adrenal glands. Normal right kidney. Normal left kidney. The seventh of prior bariatric surgery with a subtotal resection of the stomach. Normal small intestine. Normal colon. The appendix is visualized and appears normal. Normal abdominal aorta. Normal inferior vena cava. Normal retroperitoneum. Normal urinary bladder. There is evidence of diffuse thickening of the skin with increased markings in the subcutaneous fat of the panniculus of the lower abdomen. Left-sided ventral hernia. No small bowel loops are seen at this time with her. There are diffuse degenerative changes of the visualized lumbar spine. May have to admit him the day before surgery for IV antibiotics and to hydrate him prior to surgery. Also would obtain a Hospitalist Consult to determine if additional studies are necessary prior to surgery. His [facility] is Dr. Fisher. Told him we cannot remove the whole abdominal panniculus at one time because of the risk of bleeding and other issues secondary to changes in fluid shifts since there is heavy dependent lymphedema present. Realistically will do the surgery in stages. Will excise as much of the abdominal panniculus as we can until a certain blood loss is obtained, usually between 450-500 ml. We would then stop and pack the wound and begin the VAC the following day. Post discharge, will [facility]. I anticipate every 3-6 months, would proceed with additional surgery. Depending on how he responds at the time of surgery, the number of procedures may range between 6-10 procedures. He voices understanding. Will obtain previous records from the [facility] regarding the previous ventral hernia repair with mesh. Depending on how well the wound can be managed at home after surgery would determine if the patient needs to go to an ECF after surgery. He also has thyroid disease and will need a preop TSH level drawn and it needs to be less than 10 in order to proceed with elective surgery. Patient was informed of the risks and complications of the procedure including alternatives to surgery. These were discussed with the patient personally. Patient voices understanding and wishes to proceed. Some of the risks and complications were included in a form from the [employer]. We discussed the current risks associated with COVID-19. While it is understood that there is a community spread of COVID-19, the risk of clarence COVID-19 while at [facility] ([facility]) is very low; however, the risk cannot be completely mitigated because of the community spread of the disease. We discussed in detail the risk of exposure to and/or potential harm posed by the COVID-19 virus with having a surgery/procedure at this time versus the risk of delaying the surgery/procedure. It is not possible to know either the risk of delaying the surgery or procedure or chance of getting an infection with perfect accuracy, but a joint decision was made to proceed at this time with the scheduled surgery/procedure as indicated on the consent form. Patient was notified that we will need to comply with any screening or testing [facility] wishes to perform or that surgery may be delayed for any positive results. Discussed with the patient that I was tested for COVID-19 on 09/25/19. My test was negative. My testing regimen at this time is to be COVID-19 tested every 2 weeks or so. I was recently tested on 10/09/19, and that test was negative. Procedure Criteria Procedure Type: Elective COVID Risk Discussion: The surgeon/proceduralist and patient have discussed in detail the risk of exposure to and/or potential harm posed by the COVID-19 virus with having a surgery/procedure at this time versus the risk of delaying the surgery/procedure. It is not possible to know either the risk of delaying the surgery or procedure or chance of getting an infection with perfect accuracy, but a joint decision was made between the patient and the surgeon/proceduralist to proceed at this time with the scheduled surgery/procedure as indicated on the consent form.
--- NOTE | 2019-10-20 14:57 | PN_ITS ---
Reason for Visit: Medical management Subjective: This is a 59 yo male with pmhx of morbid obesity who plans to undergo a partial panniculectomy tomorrow with Dr. Pisano. The patient has had 2 prior gastric surgeries including gastric stapling and hernia repair with mesh placement. He has a medical hx with multiple issues including cardiomyopathy, AICD in place, pAfib, Parikh Parkinson White syndrome, 2 prior ablations, HTN, HLD, COPD, pulmonary hemorrhage, GI bleed, and TEX. The patient is currently resting comfortably in bed in [facility]. He denies cough, sob, chest pain, fevers, chills, recent illness, no new LE edema. Of most concern at this timeis that the patient has chronic left shoulder pain and underwent an radiofrequency ablation with Dr. Subramanian about 2-3 weeks ago. During this he had a firing of his AICD. He was seen in April by cardiology. At that time he was felt to be low risk for general surgery per dr. Fisher noting that fluid and arrhythmia management would be the biggest issues. He has not been seen by cardiology since. Vitals/I&O's: Vital Signs Temp Pulse Resp BP Pulse Ox 98.5 F 64 18 124/99 H 98 10/19/19 11:00 10/19/19 11:00 10/19/19 11:00 10/19/19 11:00 10/19/19 11:00 Oxygen Delivery Method Room Air Weight: 398 lb 13.059 oz Body Mass Index (BMI) 64.0 General: Alert, Oriented x3, Cooperative HEENT: Atraumatic, PERRLA, EOMI, Normocephalic Neck: Supple, No JVD, Negative Carotid Bruits Lungs: Clear to auscultation, Normal air movement Cardiovascular: Regular rate, No murmurs Abdomen: Bowel Sounds Present, Soft, Non Tender, Obese, - - large pannus Extremities: Capillary Refill Less than 3 Seconds, Edema - trace to 1+ BL pitting Skin: No rashes, No breakdown Musculoskeletal: No Tenderness to Palpation of Joints or Extremities Neurological: Cranial nerves II-XII grossly intact Psych/Mental Status: Normal Affect, Appropriate, Alert and oriented to time, place, person, mood and affect Medical Necessity - Tobacco Use Smoking Status: Never smoker Assessment/Plan All Active Problems (Last Reviewed 07/19/19 @ 22:[address] Anthony Pisano MD) Acute exacerbation of CHF (congestive heart failure) (Acute) 1. Morbid obesity - preoperatively obtain EKG, CXR, pacer check. Pt to undergo partial panniculectomy with Dr. Pisano tomorrow. covid 19 test pending, however no recent infectious symptoms. Low risk for general surgery per cardiology Apr 2019 with arrhythmia and fluid management as the biggest concerns. 2. Hx cardiomyopathy, systolic CHF, AICD - AICD discharged 2-3 weeks ago when he had an RFA for left shoulder pain. Pacer check pending. Check Mag. Avoid excessive IV fluids. He had a heart catheterization in October of 2017 which showed normal coronary arteries, but LVEF of 15%. He does not appear volume overloaded at this time. -Continue entresto, coreg, asprin, lasix, aldactone. Can hold diuretics morning of surgery. 3. pAfib with WPW - prior ablations. Obtain EKG. Continue Amiodarone, coreg. Not anticoagulated due to #9. 4. Hx GI bleed and pulmonary hemorrhage. Check CBC. 5. COPD - no exacerbation - avoid excessive albuterol with hx Afib. Continue IH steroids daily, give duonebs if SOB. 6. Chronic pain due to shoulder and knee pain, Rheumatoid arthritis - follows pain management Dr. Subramanian. 7. TEX - pt has his Bipap machine here and will utilize it qhs. complicated by concomittant use of sedating medications including ambien, ativan, tizanidine, oxycodone 8. Hx DVT He is not anticoagulated due to #9 9. Hx Pulmonary hemorrhage and GI bleed 10. Hypothyroidism - synthroid. TSH 09/01/19 normal. 11. Anx/Dep - zoloft, ambien, bupropion, zolpidem 12. Hx hernia with mesh - per Dr. Pisano, this surgery will not approach his mesh. Thank you for the opportunity to participate in the care of this patient. This patient was seen by Barry Farias PA-C under the supervision of Doctor Monk.
--- NOTE | 2019-10-20 15:04 | RAD_ITS ---
STUDY: X-RAY CHEST REASON FOR EXAM: Male, 59 years old. PATIENT IS SCHEDULED FOR A ABDOMINAL PANICULECTOMY TOMORROW. TECHNIQUE: Single AP portable view of the chest. COMPARISON: Comparison is made with prior study 11-05-18. FINDINGS: Pleural parenchymal changes at the left lung base. The right lung is clear. There is moderate cardiac enlargement. A left-sided unipolar pacemaker is seen. Normal mediastinum and oumou. Normal visualized pulmonary arteries. Normal visualized aortic arch and descending thoracic aorta. Normal visualized thoracic spine. Normal visualized ribs, clavicles, and shoulders. There is no demonstrated abnormality of the visualized soft tissue structures of the upper abdomen. RAD/Chest 1 View (Portable) IMPRESSION: Pleural parenchymal changes at the left lung base. Cardiomegaly. Electronically Signed: Chino Crowder, at 15:33 EDT , Service support ,
[2019-10-20 16:10] LABS: Hematocrit 38.5 % (40-54); Hemoglobin 12.7 g/dL (13.0-16.5); Mean Corpuscular Hgb 34.4 pg (27.0-32.0); Mean Corpuscular Volume 104.3 fL (80-94); Mean Platelet Vol. 10.7 fl (6.2-12.0); Platelet Count 152 K/mm3 (150-450); RBC Distribution Width CV 14.2 % (11.6-14.6); RBC Distribution Width SD 54.3 fl (35.1-43.9); Red Blood Count 3.69 M/mm3 (4.6-6.2); White Blood Count 7.4 K/mm3 (4.4-11.0)
[2019-10-20 16:38] LABS: ALB/GLOB Ratio 0.9 RATIO (0.9-2.4); AST(SGOT) 19 U/L (15-37); Alanine Aminotransfer ALT/SGPT 25 U/L (16-61); Albumin, Serum 3.3 g/dL (3.2-5.0); Alkaline Phosphatase 110 U/L (45-117); Anion Gap 3 (5-15); BUN 47 mg/dL (7-18); BUN/Creat Ratio 34.1 RATIO (10-20); Calcium,Total 8.7 mg/dL (8.5-10.1); Chloride 106 mmol/L (98-107); Creatinine, Serum 1.38 mg/dL (0.70-1.30); EST Glomerular Filtration Rate 56 mL/min (>60); Est Glom Filt Rate - Afr Amer 68 mL/min (>60); Estimated Creatinine Clearance 52.01 ml/min; Globulin 3.8 g/dL (2.2-4.2); Glucose 91 mg/dL (74-106); Magnesium 2.2 mg/dL (1.6-2.6); Potassium 4.9 mmol/L (3.5-5.1); Prealbumin 24.6 mg/dL (20.0-40.0); Protein, Total 7.1 g/dL (6.4-8.2); Sodium Level 135 mmol/L (136-145); Thyroid Stim Hormone (TSH) 1.69 uIU/mL (0.358-3.74)
[2019-10-20 16:42] LABS: Erythrocyte Sedimentation Rate 32 mm/hr (0-20)
[2019-10-20 17:17] VITALS: BP 96/53; PULSE 61; RESP 18; TEMP 36.8; O2SAT 98
[2019-10-20 17:26] LABS: Probe Check PASS; Specimen Processing Control PASS
[2019-10-20] MEDS: Lactated Ringers 1,000 ML 30 ML IV (17:29)
[2019-10-20 20:26] VITALS: BP 131/68; PULSE 55; RESP 18; TEMP 36.4; O2SAT 99
[2019-10-20] MEDS: Docusate Sodium 100 MG Capsule PO (22:02)
[2019-10-21] VITALS (13 sets, daily range): BP systolic 105–140; BP diastolic 50–80; PULSE 50–70; RESP 16–20; TEMP 36.2–37; O2SAT 93–99; BMI 64.0
--- NOTE | 2019-10-21 | DEB_PTH ---
PATIENT: ZAIN VILLARREAL LOC: [facility] U#:[id number] AGE/SX: 59/M ROOM: MS308 RE10/20/[address]: Dr. Elieser Correa MD : 1960 BED: 1 DIS: 10/23/2019 SPEC #: [id number] RECD: 10/21/19 11:18 STATUS: SUSANA REQ #: [id number] DONTAE: 10/21/19 00:[address]: Anthony Pisano DEPT: SURGICAL PATHOLOGY RECD BY: Nelson Hines ENTERED: 10/21/19 13:58 SP TYPE: DONNA TISS OTHR DR: MD Dr. Anthony Bentley MD Dr. Prakash Chand, MD Dr. Tai Chi Kwok, MD Tissues: Soft tissues, NOS Procedures: Surgery Specimen Level III Comments: @ Ordering doctor for SUIII edited from to @ by RGOOD at 10/21/19 1544 @ Submitting doctor edited from to @ by RGOOD at 10/21/19 1544 HEADER OPERATION: Abdominal panniculectomy, excisional debridement skin PRE-OP DIAGNOSIS: Massive abdominal panniculus with panniculitis; recent weight loss; abdominal wall skin cease intertrigo; painful lymphedema lower abdominal wall TISSUE SUBMITTED: Debrided abdominal pannus MICROSCOPIC DIAGNOSIS Debrided abdominal pannus: Pieces of adipose tissue with extensive fat necrosis, dystrophic calcification and mild chronic inflammation. USHA:nathan 10/23/19 MICROSCOPIC DESCRIPTION Slides are reviewed. GROSS DESCRIPTION Received in fixative is one container labeled with the patient's name and designated debrided abdominal pannus. The specimen consists of multiple irregular fragments of skin with attached hatfield-yellow fibrofatty tissue ranging in size from 2 to 30 cm and in aggregate weighing 3898 gm. Serial sections reveal multiple areas of chalky, yellow discoloration with associated cysts that cut with a gritty sensation. No cutaneous lesions are identified. Senior Clinical Data Coordinator sections are submitted in four cassettes. / AM:nathan 10/22/19 TC:5 CPT: 76236
[2019-10-21 05:38] LABS: Absolute Lymphocyte Count 0.94 X10^3/uL (0.83-4.51); Absolute Neutrophil Count 4.5 X10^3/uL (2.0-7.7); Basophil# 0.03 X10^3/uL; Basophil% 0.5 % (0-1); Eosinophils% 4.7 % (0-5); Hematocrit 36.6 % (40-54); Hemoglobin 12.2 g/dL (13.0-16.5); Lymphocyte # 0.94 X10^3/ul (4.0); Lymphocyte % 14.6 % (19-41); Mean Corp Hgb Conc 33.3 g/dL (32-36); Mean Corpuscular Hgb 34.8 pg (27.0-32.0); Mean Corpuscular Volume 104.3 fL (80-94); Mean Platelet Vol. 10.3 fl (6.2-12.0); Monocyte# 0.63 X10^3/uL; Monocyte% 9.8 % (0-10); NRBC Flagged by Analyzer 0 % (0-5); Neutrophil # 4.51 X10^3/uL (2.7-7.7); Neutrophil % 70.1 % (47-70); Platelet Count 143 K/mm3 (150-450); RBC Distribution Width CV 14.3 % (11.6-14.6); RBC Distribution Width SD 54.6 fl (35.1-43.9); Red Blood Count 3.51 M/mm3 (4.6-6.2); White Blood Count 6.4 K/mm3 (4.4-11.0)
[2019-10-21 05:52] LABS: Anion Gap 2 (5-15); BUN 41 mg/dL (7-18); Chloride 106 mmol/L (98-107); Creatinine, Serum 1.17 mg/dL (0.70-1.30); EST Glomerular Filtration Rate 68 mL/min (>60); Est Glom Filt Rate - Afr Amer 82 mL/min (>60); Estimated Creatinine Clearance 61.35 ml/min; Glucose 86 mg/dL (74-106); Potassium 4.6 mmol/L (3.5-5.1); Sodium Level 136 mmol/L (136-145)
--- NOTE | 2019-10-21 10:15 | CASEMGMT ---
RN CM attempted to complete CM assessment at this time. Patient is out of room and currently in surgery. CM will attempt to complete assessment at later time.
--- NOTE | 2019-10-21 10:59 | PCM.OPRPT ---
Report of Operation Date of Procedure: 10/21/19 Pre-Operative Diagnosis: 1. Massive abdominal panniculus with panniculitis. 2. Recent weight loss. 3. Abdominal wall skin crease intertrigo. 4. Painful lymphedema lower abdominal wall. 5. Lumbar back pain. 6. History of laparoscopic ventral hernia repair with mesh. 7. History of DVT. Post-Operative Diagnosis: 1. Massive abdominal panniculus with panniculitis. 2. Necrotizing soft tissue infection. 3. Recent weight loss. 4. Abdominal wall skin crease intertrigo. 5. Painful lymphedema lower abdominal wall. 6. Lumbar back pain. 7. History of laparoscopic ventral hernia repair with mesh. 8. History of DVT. Surgery/Procedure Performed:: 1. Surgical preparation right abdominal wall with excisional debridement skin, subcutaneous tissue, and fascia necrotizing soft tissue infection (731 cm2). 2. Abdominal panniculectomy. Description of Surgical Findings:: 59 year old male presents for evaluation for an abdominal panniculectomy. He had ventral hernia repair at the [facility] 2 years ago in preparation for a gastric bypass procedure to help him lose weight, (gastric sleeve). He states that he went from 500 lbs down to 406 lbs. He was told to get down to 350 lbs before they would consider the gastric bypass procedure. He has difficulty walking due to the size of his pannus and he has severe back pain. He walks with a walker which is difficult because of a rotator cuff problem in his shoulders. He denies fever. He denies bloating. He denies nausea and vomiting. He goes to Pain Management for his lumbar back pain. Patient was informed of the risks and complications of the procedure including alternatives to surgery. These were discussed with the patient personally. Patient voices understanding and wishes to proceed. Some of the risks and complications were included in a form from the [employer]. IV Fluids - 750 ml. Urine Output - 150 ml. Size of defect right lateral abdominal wall - 43 x 17 x 6 cm. nylon winder: Christopher Patton. Type of Anesthesia:: General Specimen's removed: Abdominal wall soft tissue to Pathology and Microbiology. Drains: None. Estimated Blood Loss (mL): 450 ml. Fluids Replaced: 900 ml (IV Fluids 750 ml, and Urine Output 150 ml). Description of Procedure: Patient was taken to OR in supine position and was placed under general anesthesia. The abdominal wall was prepped and draped in the usual fashion. SCD's were placed for DVT prophylaxis. A jordan catheter was placed. For the procedure, I wore an N95 mask and wore proper eyewear protection. I proceeded with excisional debridement of the extensive panniculitis on the right abdominal wall in the areas of palpable firmness and redness and tenderness. I excised down into the subcutaneous tissue. A lot of extensive fat necrosis was present. No pus was seen. The fat necrosis extended past Mk's fascia down to the abdominal wall fascia. This extensive firm fat necrosis was excised and debrided. He also has extensive abdominal wall skin crease intertrigo, and his large abdominal panniculus is at risk for further worsening infection. Therefore an abdominal panniculectomy was also performed on the right side from the pubic area superiorly to the umbilicus. I had discussed with the patient preoperatively that I will excise what I can safely as long as there are no cardiorespiratory issues during surgery and the intra-operative blood loss is less than 500 ml. I anticipate I will be stopping after excising the right side. If so, then I would do the left side at some point in the future. Tissue excised was sent to Pathology for analysis to rule out carcinoma. Tissue was also sent to Microbiology for culture. A positive culture will necessitate antibiotic therapy. The wound was irrigated with saline. Hemostasis was obtained with electrocautery. Dimensions of the abdominal wall wound after surgical preparation abdominal wall with excisional debridement skin and subcutaneous tissue and fascia necrotizing soft tissue infection and abdominal panniculectomy were 43 x 17 x 6 cm or 731 cm2. The wound was then dressed with Mepitel nonadherent dressing followed by Kerlix gauze and Betadine followed by dry Kerlix gauze and ABD compression dressing. Patient tolerated the procedure well and was sent to PACU in satisfactory condition. Patient will be sent upstairs for continued postop care. He will continue IV antibiotics. The VAC will be placed tomorrow. Will also check a Prealbumin and encourage nutritional supplementation with protein to help the healing process. After discharge he [facility]. If there is a plateau in the healing process, can proceed in a delayed fashion further operative debridement and skin grafting. Grafts/Implants Used: None. - Complications None. - Admit VTE Documentation VTE Present on Admission: No VTE Mechan Device Prophylaxis: SCD's VTE Pharm Prophylaxis ordered?: No Surgery Charges CPT - 82768 ICD-10 - M79.89, E65, M79.3, R63.4, L30.4, I89.0, M54.5, Z98.890, Z86.718 50520 E65, M79.3, M79.89, R63.4, L30.4, I89.0, M54.5, Z98.890, Z86.718
[2019-10-21] MEDS: oxyCODONE 5 MG Tablet 10 MG PO ×2 (14:40→21:21)
--- NOTE | 2019-10-21 14:51 | PN_ITS ---
<Barry Farias - Last Filed: 10/21/19 14:51> Reason for Visit: post op, partial panniculectomy Subjective: Pt alert and oriented, resting comfortably on bipap. Some pain but pain regimen is effectively controlling it. Some nausea no vomiting. No fever/chills. No SOB. Vitals/I&O's: Vital Signs Temp Pulse Resp BP Pulse Ox 98.6 F 55 L 18 105/57 L 98 10/21/19 14:21 10/21/19 14:21 10/21/19 14:21 10/21/19 14:21 10/21/19 14:21 Oxygen Flow Rate (L/min) 2 Oxygen Delivery Method CPAP Weight: 398 lb 13.059 oz Body Mass Index (BMI) 64.0 Intake and Output for Last 24 Hours 10/19/19 10/20/19 10/21/19 23:59 23:59 23:59 Intake Total 806 / 806 1100 / 1100 Output Total 500 / 500 1240 / 1240 Balance 306 / 306 -140 / -140 General: Alert, Oriented x3, Cooperative HEENT: Atraumatic, PERRLA, EOMI, Normocephalic Neck: Supple, No JVD, Negative Carotid Bruits Lungs: Clear to auscultation, Normal air movement Cardiovascular: Regular rate, No murmurs Abdomen: Bowel Sounds Present, Soft, Non Tender, Obese Extremities: No edema, Capillary Refill Less than 3 Seconds Skin: No rashes, No breakdown Musculoskeletal: No Tenderness to Palpation of Joints or Extremities Neurological: Cranial nerves II-XII grossly intact Psych/Mental Status: Normal Affect, Appropriate, Alert and oriented to time, place, person, mood and affect Laboratory Results 10/20/19 15:15: COVID-19 ([facility]) Negative 10/20/19 16:02: Sodium 135 L, Potassium 4.9, Chloride 106, Carbon Dioxide 26.0, Anion Gap 3 L, BUN 47 H, Creatinine 1.38 H, Estim Creat Clear Calc 52.01, Est GFR (MDRD) Af Amer 68, Est GFR (MDRD) Non-Af 56 L, BUN/Creatinine Ratio 34.1 H, Glucose 91, Calcium 8.7, Magnesium 2.2, Total Bilirubin 0.50, AST 19, ALT 25, Alkaline Phosphatase 110, C-React Prot Ext Range 15.20 H, Total Protein 7.1, Albumin 3.3, Globulin 3.8, Albumin/Globulin Ratio 0.9, Prealbumin 24.6, TSH 1.69 10/20/19 16:02: WBC 7.4, RBC 3.69 L, Hgb 12.7 L, Hct 38.5 L, MCV 104.3 H, MCH 34.4 H, MCHC 33.0, RDW Std Deviation 54.3 H, RDW Coeff of Florina 14.2, Plt Count 152, MPV 10.7, ESR 32 H 10/21/19 05:27: WBC 6.4, RBC 3.51 L, Hgb 12.2 L, Hct 36.6 L, MCV 104.3 H, MCH 34.8 H, MCHC 33.3, RDW Std Deviation 54.6 H, RDW Coeff of Florina 14.3, Plt Count 143 L, MPV 10.3, Immature Gran % (Auto) 0.300, Neut % (Auto) 70.1 H, Lymph % (Auto) 14.6 L, Fergus % (Auto) 9.8, Eos % (Auto) 4.7, Baso % (Auto) 0.5, Absolute Neuts (auto) 4.5, Absolute Lymphs (auto) 0.94, Nucleated RBC % 0 10/21/19 05:27: Sodium 136, Potassium 4.6, Chloride 106, Carbon Dioxide 28.0, Anion Gap 2 L, BUN 41 H, Creatinine 1.17, Estim Creat Clear Calc 61.35, Est GFR (MDRD) Af Amer 82, Est GFR (MDRD) Non-Af 68, BUN/Creatinine Ratio 35.0 H, Glucose 86, Calcium 9.0 10/21/19 05:27: Blood Type A POSITIVE, Antibody Screen NEGATIVE Current Medications Albuterol/Ipratropium (Duoneb) 3 ml INHALATION Q6HWA.RT [facility] Last Admin: 10/21/19 13:34 Dose: Not Given Documented by: Amiodarone HCl (Cordarone) 400 mg PO DAILY [facility] Last Admin: 10/21/19 12:49 Dose: Not Given Documented by: Bupropion HCl (Wellbutrin Tablets) 100 mg PO DAILY [facility] Last Admin: 10/21/19 12:50 Dose: Not Given Documented by: Carvedilol (Coreg) 6.25 mg PO BIDCM [facility] Last Admin: 10/21/19 12:49 Dose: Not Given Documented by: Docusate Sodium (Colace) 100 mg PO BID [facility] Last Admin: 10/21/19 08:09 Dose: Not Given Documented by: Ceftriaxone Sodium 2 gm/ (Sodium Chloride) 50 mls @ 100 mls/hr IV Q12 [facility] Last Infusion: 10/21/19 10:39 Dose: Infused Documented by: Sodium Chloride () 250 mls @ 15 mls/hr IV .[id number] [facility] Lactated Ringer's () 1,000 mls @ 60 mls/hr IV .[id number] [facility] Levothyroxine Sodium (Synthroid) 25 mcg PO DAILY@0600 [facility] Last Admin: 10/21/19 12:50 Dose: Not Given Documented by: Lorazepam (Ativan) 0.5 mg PO BID PRN PRN PRN Reason: ANXIETY Magnesium Oxide (Mag-Ox 400) 400 mg PO DAILY [facility] Last Admin: 10/21/19 12:49 Dose: Not Given Documented by: Nutritional Formula (Danish - [place] Flavor) [facility] Last Admin: 10/21/19 08:10 Dose: Not Given Documented by: Ondansetron HCl (Zofran) 4 mg IV Q6H PRN PRN PRN Reason: NAUSEA Oxycodone HCl (Oxyir) 10 mg PO Q4H PRN PRN PRN Reason: Pain Score 6-10/10 Last Admin: 10/21/19 14:40 Dose: 10 mg Documented by: Pantoprazole Sodium (Protonix) 20 mg PO DAILY [facility] Last Admin: 10/21/19 12:50 Dose: Not Given Documented by: Primidone (Mysoline) 50 mg PO QHS [facility] Promethazine HCl (Phenergan Tablet) 25 mg PO Q4H PRN PRN PRN Reason: NAUSEA/VOMITING Sacubitril/Valsartan (Entresto 97 Mg-103 Mg Tablet) 1 each PO BID [facility] Last Admin: 10/21/19 12:49 Dose: Not Given Documented by: Senna (Senokot) 1 tablet PO BID [facility] Last Admin: 10/21/19 12:50 Dose: Not Given Documented by: Sertraline HCl (Zoloft) 50 mg PO QHS [facility] Sertraline HCl (Zoloft) 100 mg PO QHS [facility] Sodium Chloride () 10 - 40 ml IV UD PRN PRN Reason: SALINE FLUSH STROKE Vital Signs/Narrative: Vital Signs Temp Pulse Resp BP Pulse Ox 10/21/19 14:21 98.6 F 55 L 18 105/57 L 98 10/21/19 12:21 98.4 F 60 18 108/62 98 10/21/19 12:00 97.2 F L 60 16 115/64 97 10/21/19 11:45 52 L 16 115/63 96 10/21/19 11:30 50 L 16 118/59 L 96 10/21/19 11:15 97.4 F L 53 L 16 114/70 97 Medical Necessity - Tobacco Use Smoking Status: Never smoker Assessment/Plan All Active Problems (Last Reviewed 07/19/19 @ 22:[address] Anthony Pisano MD) Acute exacerbation of CHF (congestive heart failure) (Acute) 1. Morbid obesity s/p partial panniculectomy, debridement per Dr. Pisano POD#0 - Doing well no acute issues. Check CBC/BMP in AM. DC fluids as soon as tolerating clears. Some nausea at the moment. 2. Hx cardiomyopathy, systolic CHF, AICD - Avoid excessive IV fluids. He had a heart catheterization in October of 2017 which showed normal coronary arteries, but LVEF of 15%. He does not appear volume overloaded at this time. -Continue entresto, coreg, asprin, lasix, aldactone. Resume diuretics tomorrow. 3. pAfib with WPW - prior ablations. Obtain EKG. Continue Amiodarone, coreg. Not anticoagulated due to #9. 4. Hx GI bleed and pulmonary hemorrhage. 5. COPD - no exacerbation - avoid excessive albuterol with hx Afib. Continue IH steroids daily, give duonebs if SOB. 6. Chronic pain due to shoulder and knee pain, Rheumatoid arthritis - follows pain management Dr. Subramanian. 7. TEX - pt has his Bipap machine here and will utilize it qhs. complicated by concomittant use of sedating medications including ambien, ativan, tizanidine, oxycodone 8. Hx DVT He is not anticoagulated due to #9 9. Hx Pulmonary hemorrhage and GI bleed 10. Hypothyroidism - synthroid. TSH 09/01/19 normal. 11. Anx/Dep - zoloft, ambien, bupropion, zolpidem 12. Hx hernia with mesh - done at the medical center Thank you for the opportunity to participate in the care of this patient. This patient was seen by Barry Farias PA-C under the supervision of Doctor Sunny <Elieser Correa - Last Filed: 10/21/19 16:16> Reason for Visit: Follow-up panniculectomy Objective: Patient was seen and examined in recovery room after surgery. Patient had excisional debridement of skin, subcutaneous tissue and fascia on right lateral abdominal wall for necrotizing soft tissue infection with abdominal panniculectomy General: Alert, Oriented x3, Cooperative, morbid obese. BMI 64.1 kg/m? HEENT: Atraumatic, PERRLA, EOMI, Normocephalic Oral: No Gingival or Mucosal Lesions/ Ulcerations Neck: Supple, No JVD, Negative Carotid Bruits Lungs: Air entry diminished in bilateral lung bases. No crepitation/rhonchi Cardiovascular: Regular rate, Regular Rhythm, Normal S1, Normal S2, No murmurs Abdomen: Bowel Sounds Present, Soft, Non Tender, Non-Distended : No renal angle tenderness. No suprapubic tenderness. Extremities: No edema, Capillary Refill Less than 3 Seconds Skin: No rashes, No breakdown Musculoskeletal: No Tenderness to Palpation of Joints or Extremities Neurological: Cranial nerves II-XII grossly intact, Deep Tendon Reflexes 2+/4 and Symmetrical, Neuro grossly intact Psych/Mental Status: Normal Affect, Appropriate. Vitals/I&O's: Vital Signs Temp Pulse Resp BP Pulse Ox 98.6 F 55 L 18 105/57 L 98 10/21/19 14:21 10/21/19 14:21 10/21/19 14:21 10/21/19 14:21 10/21/19 14:21 Oxygen Flow Rate (L/min) 2 Oxygen Delivery Method CPAP Weight: 398 lb 13.059 oz Body Mass Index (BMI) 64.0 Intake and Output for Last 24 Hours 10/19/19 10/20/19 10/21/19 23:59 23:59 23:59 Intake Total 806 / 806 1100 / 1100 Output Total 500 / 500 1240 / 1240 Balance 306 / 306 -140 / -140 Laboratory Results 10/20/19 15:15: COVID-19 ([facility]) Negative 10/20/19 16:02: Sodium 135 L, Potassium 4.9, Chloride 106, Carbon Dioxide 26.0, Anion Gap 3 L, BUN 47 H, Creatinine 1.38 H, Estim Creat Clear Calc 52.01, Est GFR (MDRD) Af Amer 68, Est GFR (MDRD) Non-Af 56 L, BUN/Creatinine Ratio 34.1 H, Glucose 91, Calcium 8.7, Magnesium 2.2, Total Bilirubin 0.50, AST 19, ALT 25, Alkaline Phosphatase 110, C-React Prot Ext Range 15.20 H, Total Protein 7.1, Albumin 3.3, Globulin 3.8, Albumin/Globulin Ratio 0.9, Prealbumin 24.6, TSH 1.69 10/20/19 16:02: ESR 32 H 10/21/19 05:27: WBC 6.4, RBC 3.51 L, Hgb 12.2 L, Hct 36.6 L, MCV 104.3 H, MCH 34.8 H, MCHC 33.3, RDW Std Deviation 54.6 H, RDW Coeff of Florina 14.3, Plt Count 143 L, MPV 10.3, Immature Gran % (Auto) 0.300, Neut % (Auto) 70.1 H, Lymph % (Auto) 14.6 L, Fergus % (Auto) 9.8, Eos % (Auto) 4.7, Baso % (Auto) 0.5, Absolute Neuts (auto) 4.5, Absolute Lymphs (auto) 0.94, Nucleated RBC % 0 10/21/19 05:27: Sodium 136, Potassium 4.6, Chloride 106, Carbon Dioxide 28.0, Anion Gap 2 L, BUN 41 H, Creatinine 1.17, Estim Creat Clear Calc 61.35, Est GFR (MDRD) Af Amer 82, Est GFR (MDRD) Non-Af 68, BUN/Creatinine Ratio 35.0 H, Glucose 86, Calcium 9.0 10/21/19 05:27: Blood Type A POSITIVE, Antibody Screen NEGATIVE Current Medications Albuterol/Ipratropium (Duoneb) 3 ml INHALATION Q6HWA.RT [facility] Last Admin: 10/21/19 13:34 Dose: Not Given Documented by: Amiodarone HCl (Cordarone) 400 mg PO DAILY [facility] Last Admin: 10/21/19 12:49 Dose: Not Given Documented by: Bupropion HCl (Wellbutrin Tablets) 100 mg PO DAILY [facility] Last Admin: 10/21/19 12:50 Dose: Not Given Documented by: Carvedilol (Coreg) 6.25 mg PO BIDCM [facility] Last Admin: 10/21/19 12:49 Dose: Not Given Documented by: Docusate Sodium (Colace) 100 mg PO BID [facility] Last Admin: 10/21/19 08:09 Dose: Not Given Documented by: Ceftriaxone Sodium 2 gm/ (Sodium Chloride) 50 mls @ 100 mls/hr IV Q12 [facility] Last Infusion: 10/21/19 10:39 Dose: Infused Documented by: Sodium Chloride () 250 mls @ 15 mls/hr IV .[id number] [facility] Lactated Ringer's () 1,000 mls @ 60 mls/hr IV .[id number] [facility] Levothyroxine Sodium (Synthroid) 25 mcg PO DAILY@0600 [facility] Last Admin: 10/21/19 12:50 Dose: Not Given Documented by: Lorazepam (Ativan) 0.5 mg PO BID PRN PRN PRN Reason: ANXIETY Magnesium Oxide (Mag-Ox 400) 400 mg PO DAILY [facility] Last Admin: 10/21/19 12:49 Dose: Not Given Documented by: Nutritional Formula (Danish - [place] Flavor) [facility] Last Admin: 10/21/19 08:10 Dose: Not Given Documented by: Ondansetron HCl (Zofran) 4 mg IV Q6H PRN PRN PRN Reason: NAUSEA Oxycodone HCl (Oxyir) 10 mg PO Q4H PRN PRN PRN Reason: Pain Score 6-10/10 Last Admin: 10/21/19 14:40 Dose: 10 mg Documented by: Pantoprazole Sodium (Protonix) 20 mg PO DAILY [facility] Last Admin: 10/21/19 12:50 Dose: Not Given Documented by: Primidone (Mysoline) 50 mg PO QHS [facility] Promethazine HCl (Phenergan Tablet) 25 mg PO Q4H PRN PRN PRN Reason: NAUSEA/VOMITING Sacubitril/Valsartan (Entresto 97 Mg-103 Mg Tablet) 1 each PO BID [facility] Last Admin: 10/21/19 12:49 Dose: Not Given Documented by: Senna (Senokot) 1 tablet PO BID [facility] Last Admin: 10/21/19 12:50 Dose: Not Given Documented by: Sertraline HCl (Zoloft) 50 mg PO QHS [facility] Sertraline HCl (Zoloft) 100 mg PO QHS [facility] Sodium Chloride () 10 - 40 ml IV UD PRN PRN Reason: SALINE FLUSH STROKE Vital Signs/Narrative: Vital Signs Temp Pulse Resp BP Pulse Ox 10/21/19 14:21 98.6 F 55 L 18 105/57 L 98 10/21/19 12:21 98.4 F 60 18 108/62 98 Assessment/Plan This patient was seen in conjunction with Barry BA. I have independently interviewed and examined the patient and reviewed pertinent history, examination findings, laboratory and plan of management. I have reviewed the note and agree with the documented findings with the few additional points. In brief, patient is admitted to [facility] for abdominal panniculectomy. He had ventral hernia repair in [facility] 2 years and then gastric sleeve procedure. His weight decreased from 500-406 pounds. Patient had excisional debridement of skin, subcutaneous tissue and fascia on right lateral abdominal wall for necrotizing soft tissue infection with abdominal panniculectomy. Patient has multiple comorbidities including chronic systolic heart failure status post AICD, nonischemic cardiomyopathy with last heart cath October 2017 showed normal coronary arteries with EF 15%. Proximal A. fib with WPW syndrome. COPD, history of GI bleed and pulmonary hemorrhage, chronic pain from degenerative joint disease, obstructive sleep apnea, history of DVT, hypothyroidism and anxiety and depression. I have discussed my assessment with Barry BA and orders have been reviewed. Inpatient E&M: 80159 Subs Hosp L2
[2019-10-21] MEDS: Carvedilol 6.25 MG Tablet PO (17:11)
[2019-10-21] MEDS: Sertraline 50 MG Tablet PO (21:22)
[2019-10-21] MEDS: SACUBITRIL/VALSARTAN 97-103 MG TABLET 1 EACH PO (21:22)
[2019-10-21] MEDS: Sertraline 100 MG Tablet PO (21:22)
[2019-10-21] MEDS: Primidone 50 MG Tablet PO (21:22)
[2019-10-21] MEDS: Senna Tablet 1 TABLET PO (21:23)
[2019-10-21] MEDS: Docusate Sodium 100 MG Capsule PO (21:23)
[2019-10-21] MEDS: 0.9% Saline Lock 10 ML Syringe IV (21:41)
[2019-10-22] VITALS (7 sets, daily range): BP systolic 87–122; BP diastolic 41–66; PULSE 61–82; RESP 16–20; TEMP 36.7–36.9; O2SAT 92–100
[2019-10-22] MEDS: 0.9% Saline Lock 10 ML Syringe IV ×2 (00:58→09:30)
[2019-10-22] MEDS: Zolpidem Tartrate 5 MG Tablet PO ×2 (00:58→22:44)
[2019-10-22 06:15] LABS: Absolute Lymphocyte Count 0.58 X10^3/uL (0.83-4.51); Absolute Neutrophil Count 8.6 X10^3/uL (2.0-7.7); Basophil# 0.03 X10^3/uL; Basophil% 0.3 % (0-1); Eosinophil# 0.25 X10^3/uL; Eosinophils% 2.3 % (0-5); Hematocrit 36.9 % (40-54); Hemoglobin 12.3 g/dL (13.0-16.5); Lymphocyte # 0.58 X10^3/ul (4.0); Lymphocyte % 5.4 % (19-41); Mean Corp Hgb Conc 33.3 g/dL (32-36); Mean Corpuscular Hgb 34.7 pg (27.0-32.0); Mean Corpuscular Volume 104.2 fL (80-94); Mean Platelet Vol. 10.4 fl (6.2-12.0); Monocyte# 1.17 X10^3/uL; NRBC Flagged by Analyzer 0 % (0-5); Neutrophil # 8.61 X10^3/uL (2.7-7.7); Neutrophil % 80.7 % (47-70); POSITIVE DIFFERENTIAL YES; Platelet Count 138 K/mm3 (150-450); RBC Distribution Width SD 54.1 fl (35.1-43.9); Red Blood Count 3.54 M/mm3 (4.6-6.2); White Blood Count 10.7 K/mm3 (4.4-11.0)
[2019-10-22 06:22] LABS: Differential Indicated SCAN CRITERIA MET
[2019-10-22] MEDS: oxyCODONE 5 MG Tablet 10 MG PO ×2 (06:35→22:54)
[2019-10-22] MEDS: Levothyroxine 25 MCG TABLET PO (06:35)
[2019-10-22 06:36] LABS: Anion Gap 2 (5-15); BUN 34 mg/dL (7-18); Calcium,Total 9.1 mg/dL (8.5-10.1); Chloride 103 mmol/L (98-107); Creatinine, Serum 1.26 mg/dL (0.70-1.30); EST Glomerular Filtration Rate 62 mL/min (>60); Est Glom Filt Rate - Afr Amer 75 mL/min (>60); Estimated Creatinine Clearance 56.96 ml/min; Glucose 107 mg/dL (74-106); Sodium Level 133 mmol/L (136-145)
[2019-10-22 06:37] LABS: Differential Comment SCANNED
--- NOTE | 2019-10-22 09:28 | NURSING ---
wound photo: right lower abdomen
[2019-10-22] MEDS: Magnesium Oxide 400 MG Tablet PO (09:30)
[2019-10-22] MEDS: buPROPion 100 MG Tablet PO (09:30)
[2019-10-22] MEDS: Pantoprazole Sodium 20 MG Tablet PO (09:30)
[2019-10-22] MEDS: Docusate Sodium 100 MG Capsule PO ×2 (09:30→22:44)
[2019-10-22] MEDS: Senna Tablet 1 TABLET PO ×2 (09:31→22:46)
--- NOTE | 2019-10-22 10:30 | CASEMGMT ---
CONCHA REARDON Face to Face with patient for initial transition planning/care coordination assessment. CONCHA REARDON introduced self and role at [facility]. Patient lying in bed, alert and oriented. Patient willing to participate in assessment and is able to answer all questions appropriately. Care providers, pharmacy, and demographics verified. Patient wishes to discharge home, and would like [facility]. CONCHA REARDON provided list to patient of in-network C agencies. Patient states he has no further needs or concerns at this time. CM to follow for discharge planning needs that may arise. PCP: [place] Specialists: Norris, plastic; Moris, pain; Narinder, battery wrecker operator Preferred Pharmacy: [facility] Prescription Benefit: yes Living Will/HPOA: yes, ex Brittni Gold LNOK: ex Living Arrangements: Patient lives alone in an apartment on ground floor with no steps to enter the home. Patient states he is independent for toileting and dressing. Patient has aides through [employer] 5 days per week for 3hrs/day. Transportation: [facility]/HHC: Patient states he has shower chair, raised toilet seat, hospital bed, grab bars, walker, oxygen at 3 lpm at HS was through [facility], [facility] Patient has previously been to [facility]. Disposition Plan: Patient to discharge home with HHC, aide services, and follow-up plans in place. Mary GILMORE, RN, CM
[2019-10-22] MEDS: Lactated Ringers 500 ML IV.SOLN. IV (10:55)
--- NOTE | 2019-10-22 10:58 | PN_ITS ---
<Barry Farias - Last Filed: 10/22/19 10:58> Reason for Visit: panniculectomy Subjective: Mild abd pain. Wound vac placed today. No fever/chills. No cough/SOB. No LE edema. Pt concerned about constipation and requested laxatives - added. Vitals/I&O's: Vital Signs Temp Pulse Resp BP Pulse Ox 98.5 F 61 16 88/51 L 92 10/22/19 10:48 10/22/19 10:48 10/22/19 10:48 10/22/19 10:48 10/22/19 10:48 Oxygen Flow Rate (L/min) 2 Oxygen Delivery Method Room Air Weight: 398 lb 13.059 oz Body Mass Index (BMI) 64.0 Intake and Output for Last 24 Hours 10/20/19 10/21/19 10/22/19 23:59 23:59 23:59 Intake Total 806 / 806 2890 / 3590 764.50 / 764.50 Output Total 500 / 500 2140 / 2590 675 / 675 Balance 306 / 306 750 / 1000 89.50 / 89.50 General: Alert, Oriented x3, Cooperative HEENT: Atraumatic, PERRLA, EOMI, Normocephalic Neck: Supple, No JVD, Negative Carotid Bruits Lungs: Clear to auscultation, Normal air movement Cardiovascular: Regular rate, No murmurs Abdomen: Bowel Sounds Present, Soft, Non Tender, Obese Extremities: No edema, Capillary Refill Less than 3 Seconds Skin: No rashes, No breakdown Musculoskeletal: No Tenderness to Palpation of Joints or Extremities Neurological: Cranial nerves II-XII grossly intact Psych/Mental Status: Normal Affect, Appropriate, Alert and oriented to time, place, person, mood and affect Microbiology Past 72 Hours 10/21/19 11:00 Tissue - Abdominal Gram Stain - Final 10/21/19 11:00 Tissue - Abdominal Wound Culture - Preliminary No growth-Final to follow Laboratory Results 10/22/19 06:05: WBC 10.7, RBC 3.54 L, Hgb 12.3 L, Hct 36.9 L, MCV 104.2 H, MCH 34.7 H, MCHC 33.3, RDW Std Deviation 54.1 H, RDW Coeff of Florina 14.0, Plt Count 138 L, MPV 10.4, Immature Gran % (Auto) 0.300, Neut % (Auto) 80.7 H, Lymph % (Auto) 5.4 L, [place] % (Auto) 11.0 H, Eos % (Auto) 2.3, Baso % (Auto) 0.3, Absolute Neuts (auto) 8.6 H, Absolute Lymphs (auto) 0.58 L, Nucleated RBC % 0, Differential Comment SCANNED 10/22/19 06:05: Sodium 133 L, Potassium 5.0, Chloride 103, Carbon Dioxide 28.0, Anion Gap 2 L, BUN 34 H, Creatinine 1.26, Estim Creat Clear Calc 56.96, Est GFR (MDRD) Af Amer 75, Est GFR (MDRD) Non-Af 62, BUN/Creatinine Ratio 27.0 H, Glucose 107 H, Calcium 9.1 Current Medications Albuterol/Ipratropium (Duoneb) 3 ml INHALATION Q6HWA.RT [facility] Last Admin: 10/21/19 19:45 Dose: Not Given Documented by: Amiodarone HCl (Cordarone) 400 mg PO DAILY [facility] Last Admin: 10/22/19 09:31 Dose: Not Given Documented by: Bupropion HCl (Wellbutrin Tablets) 100 mg PO DAILY [facility] Last Admin: 10/22/19 09:30 Dose: 100 mg Documented by: [facility] ([facility]) [facility] Last Admin: 10/22/19 09:31 Dose: Not Given Documented by: Docusate Sodium (Colace) 100 mg PO BID [facility] Last Admin: 10/22/19 09:30 Dose: 100 mg Documented by: Furosemide (Lasix) 40 mg PO DAILY [facility] Last Admin: 10/22/19 10:02 Dose: Not Given Documented by: Ceftriaxone Sodium 2 gm/ (Sodium Chloride) 50 mls @ 100 mls/hr IV Q12 [facility] Last Infusion: 10/22/19 09:59 Dose: Infused Documented by: Sodium Chloride () 250 mls @ 15 mls/hr IV .[id number] [facility] Last Infusion: 10/22/19 10:56 Dose: 0 mls/hr Documented by: Sodium Chloride () 1,000 mls @ 100 mls/hr IV .Q10H [facility] Lactated Ringer's () 500 ml IV X1 ONE Stop: 10/22/19 10:52 Levothyroxine Sodium (Synthroid) 25 mcg PO DAILY@0600 [facility] Last Admin: 10/22/19 06:35 Dose: 25 mcg Documented by: Lorazepam (Ativan) 0.5 mg PO BID PRN PRN PRN Reason: ANXIETY Magnesium Hydroxide (Milk Of Magnesia) 30 ml PO DAILY [facility] Magnesium Oxide (Mag-Ox 400) 400 mg PO DAILY [facility] Last Admin: 10/22/19 09:30 Dose: 400 mg Documented by: Nutritional Formula (Danish - [place] Flavor) [facility] Last Admin: 10/22/19 09:30 Dose: 1 packet Documented by: Ondansetron HCl (Zofran) 4 mg IV Q6H PRN PRN PRN Reason: NAUSEA Oxycodone HCl (Oxyir) 10 mg PO Q4H PRN PRN PRN Reason: Pain Score 6-10/10 Last Admin: 10/22/19 06:35 Dose: 10 mg Documented by: Pantoprazole Sodium (Protonix) 20 mg PO DAILY [facility] Last Admin: 10/22/19 09:30 Dose: 20 mg Documented by: Polyethylene Glycol (Miralax) 17 gm PO DAILY [facility] Primidone (Mysoline) 50 mg PO QHS [facility] Last Admin: 10/21/19 21:22 Dose: 50 mg Documented by: Promethazine HCl (Phenergan Tablet) 25 mg PO Q4H PRN PRN PRN Reason: NAUSEA/VOMITING Sacubitril/Valsartan (Entresto 97 Mg-103 Mg Tablet) 1 each PO BID [facility] Last Admin: 10/22/19 09:31 Dose: Not Given Documented by: Senna (Senokot) 1 tablet PO BID [facility] Last Admin: 10/22/19 09:31 Dose: 1 tablet Documented by: Sertraline HCl (Zoloft) 50 mg PO QHS [facility] Last Admin: 10/21/19 21:22 Dose: 50 mg Documented by: Sertraline HCl (Zoloft) 100 mg PO QHS [facility] Last Admin: 10/21/19 21:22 Dose: 100 mg Documented by: Sodium Chloride () 10 - 40 ml IV UD PRN PRN Reason: SALINE FLUSH Last Admin: 10/22/19 09:30 Dose: 10 ml Documented by: Spironolactone (Aldactone) 25 mg PO BID [facility] Last Admin: 10/22/19 10:02 Dose: Not Given Documented by: Zolpidem Tartrate (Ambien (Generic)) 5 mg PO QHS [facility] Last Admin: 10/22/19 00:58 Dose: 5 mg Documented by: STROKE Vital Signs/Narrative: Vital Signs Temp Pulse Resp BP Pulse Ox 10/22/19 10:48 98.5 F 61 16 88/51 L 92 10/22/19 09:20 98.0 F 64 18 87/41 L 95 Medical Necessity - Tobacco Use Smoking Status: Never smoker Assessment/Plan All Active Problems (Last Reviewed 07/19/19 @ 22:[address] Anthony Pisano MD) Acute exacerbation of CHF (congestive heart failure) (Acute) 1. Morbid obesity s/p partial panniculectomy, debridement per Dr. Pisano POD#1 - Doing well no acute issues. Wound vac placed per wound RN. 2. Hx cardiomyopathy, systolic CHF, AICD - Avoid excessive IV fluids. He had a heart catheterization in October of 2017 which showed normal coronary arteries, but LVEF of 15%. He does not appear volume overloaded at this time. -Continue entresto, coreg, asprin, lasix, aldactone. Resumed diuretics today. 3. pAfib with WPW - prior ablations. Obtain EKG. Continue Amiodarone, coreg. Not anticoagulated due to #9. 4. Hx GI bleed and pulmonary hemorrhage. 5. COPD - no exacerbation - avoid excessive albuterol with hx Afib. Continue IH steroids daily, give duonebs if SOB. 6. Chronic pain due to shoulder and knee pain, Rheumatoid arthritis - follows pain management Dr. Subramanian. 7. TEX - pt has his Bipap machine here and will utilize it qhs. complicated by concomittant use of sedating medications including ambien, ativan, tizanidine, oxycodone 8. Hx DVT He is not anticoagulated due to #9 9. Hx Pulmonary hemorrhage and GI bleed 10. Hypothyroidism - synthroid. TSH 09/01/19 normal. 11. Anx/Dep - zoloft, ambien, bupropion, zolpidem 12. Hx hernia with mesh - done at [facility] Thank you for the opportunity to participate in the care of this patient. This patient was seen by Barry Farias PA-C under the supervision of Doctor Sunny <Elieser Correa - Last Filed: 10/22/19 14:54> Reason for Visit: Patient blood pressure was low in the morning 87/41, 88/51. Antihypertensive and cardiac medications were held. Patient might be hypovolemic on account of surgery. Ringer lactate 500 mL bolus and then 100 mils per hour for 1 L ordered. In afternoon, blood pressure is improved 113/53. Physical exam General: Alert, Oriented x3, Cooperative, morbid obese. BMI 64.1 kg/m? HEENT: Atraumatic, PERRLA, EOMI, Normocephalic Oral: No Gingival or Mucosal Lesions/ Ulcerations Neck: Supple, No JVD, Negative Carotid Bruits Lungs: Air entry diminished in bilateral lung bases. No crepitation/rhonchi Cardiovascular: Regular rate, Regular Rhythm, Normal S1, Normal S2, No murmurs Abdomen: Bowel Sounds Present, Soft, Non Tender, Non-Distended : No renal angle tenderness. No suprapubic tenderness. Extremities: No edema, Capillary Refill Less than 3 Seconds Skin: Surgical wound in abdomen. Dressing intact. Patient had excision of skin, subcutaneous fat tissue and fascia with abdominal panniculectomy Musculoskeletal: No Tenderness to Palpation of Joints or Extremities Neurological: Cranial nerves II-XII grossly intact, Deep Tendon Reflexes 2+/4 and Symmetrical, Neuro grossly intact Psych/Mental Status: Normal Affect, Appropriate. Vitals/I&O's: Vital Signs Temp Pulse Resp BP Pulse Ox 98.3 F 70 18 113/53 L 92 10/22/19 12:30 10/22/19 12:30 10/22/19 12:30 10/22/19 12:30 10/22/19 12:30 Oxygen Flow Rate (L/min) 2 Oxygen Delivery Method Room Air Weight: 398 lb 13.059 oz Body Mass Index (BMI) 64.0 Intake and Output for Last 24 Hours 10/20/19 10/21/19 10/22/19 23:59 23:59 23:59 Intake Total 806 / 806 2890 / 3590 1364.50 / 1364.50 Output Total 500 / 500 2140 / 2590 1475 / 1475 Balance 306 / 306 750 / 1000 -110.50 / -110.50 Microbiology Past 72 Hours 10/21/19 11:00 Tissue - Abdominal Gram Stain - Final 10/21/19 11:00 Tissue - Abdominal Wound Culture - Preliminary No growth-Final to follow Laboratory Results 10/22/19 06:05: WBC 10.7, RBC 3.54 L, Hgb 12.3 L, Hct 36.9 L, MCV 104.2 H, MCH 34.7 H, MCHC 33.3, RDW Std Deviation 54.1 H, RDW Coeff of Florina 14.0, Plt Count 138 L, MPV 10.4, Immature Gran % (Auto) 0.300, Neut % (Auto) 80.7 H, Lymph % (Auto) 5.4 L, [place] % (Auto) 11.0 H, Eos % (Auto) 2.3, Baso % (Auto) 0.3, Absolute Neuts (auto) 8.6 H, Absolute Lymphs (auto) 0.58 L, Nucleated RBC % 0, Differential Comment SCANNED 10/22/19 06:05: Sodium 133 L, Potassium 5.0, Chloride 103, Carbon Dioxide 28.0, Anion Gap 2 L, BUN 34 H, Creatinine 1.26, Estim Creat Clear Calc 56.96, Est GFR (MDRD) Af Amer 75, Est GFR (MDRD) Non-Af 62, BUN/Creatinine Ratio 27.0 H, Glucose 107 H, Calcium 9.1 Current Medications Acetaminophen (Tylenol) 650 mg PO Q6H PRN PRN PRN Reason: Pain or Fever Last Admin: 10/22/19 11:51 Dose: 650 mg Documented by: Albuterol/Ipratropium (Duoneb) 3 ml INHALATION Q6HWA.RT [facility] Last Admin: 10/22/19 13:00 Dose: Not Given Documented by: Amiodarone HCl (Cordarone) 400 mg PO DAILY [facility] Last Admin: 10/22/19 09:31 Dose: Not Given Documented by: Bupropion HCl (Wellbutrin Tablets) 100 mg PO DAILY [facility] Last Admin: 10/22/19 09:30 Dose: 100 mg Documented by: Carvedil[facility] ([facility]g) [facility] Last Admin: 10/22/19 09:31 Dose: Not Given Documented by: Docusate Sodium (Colace) 100 mg PO BID [facility] Last Admin: 10/22/19 09:30 Dose: 100 mg Documented by: Furosemide (Lasix) 40 mg PO DAILY [facility] Last Admin: 10/22/19 10:02 Dose: Not Given Documented by: Ceftriaxone Sodium 2 gm/ (Sodium Chloride) 50 mls @ 100 mls/hr IV Q12 [facility] Last Infusion: 10/22/19 09:59 Dose: Infused Documented by: Sodium Chloride () 250 mls @ 15 mls/hr IV .[id number] [facility] Last Infusion: 10/22/19 10:56 Dose: 0 mls/hr Documented by: Sodium Chloride () 1,000 mls @ 100 mls/hr IV .Q10H [facility] Last Infusion: 10/22/19 13:15 Dose: 100 mls/hr Documented by: Levothyroxine Sodium (Synthroid) 25 mcg PO DAILY@0600 [facility] Last Admin: 10/22/19 06:35 Dose: 25 mcg Documented by: Lorazepam (Ativan) 0.5 mg PO BID PRN PRN PRN Reason: ANXIETY Magnesium Hydroxide (Milk Of Magnesia) 30 ml PO DAILY [facility] Magnesium Oxide (Mag-Ox 400) 400 mg PO DAILY [facility] Last Admin: 10/22/19 09:30 Dose: 400 mg Documented by: Nutritional Formula (Danish - [place] Flavor) [facility] Last Admin: 10/22/19 09:30 Dose: 1 packet Documented by: Ondansetron HCl (Zofran) 4 mg IV Q6H PRN PRN PRN Reason: NAUSEA Oxycodone HCl (Oxyir) 10 mg PO Q4H PRN PRN PRN Reason: Pain Score 6-10/10 Last Admin: 10/22/19 06:35 Dose: 10 mg Documented by: Pantoprazole Sodium (Protonix) 20 mg PO DAILY [facility] Last Admin: 10/22/19 09:30 Dose: 20 mg Documented by: Polyethylene Glycol (Miralax) 17 gm PO DAILY [facility] Primidone (Mysoline) 50 mg PO QHS [facility] Last Admin: 10/21/19 21:22 Dose: 50 mg Documented by: Promethazine HCl (Phenergan Tablet) 25 mg PO Q4H PRN PRN PRN Reason: NAUSEA/VOMITING Sacubitril/Valsartan (Entresto 97 Mg-103 Mg Tablet) 1 each PO BID [facility] Last Admin: 10/22/19 09:31 Dose: Not Given Documented by: Senna (Senokot) 1 tablet PO BID [facility] Last Admin: 10/22/19 09:31 Dose: 1 tablet Documented by: Sertraline HCl (Zoloft) 50 mg PO QHS [facility] Last Admin: 10/21/19 21:22 Dose: 50 mg Documented by: Sertraline HCl (Zoloft) 100 mg PO QHS [facility] Last Admin: 10/21/19 21:22 Dose: 100 mg Documented by: Sodium Chloride () 10 - 40 ml IV UD PRN PRN Reason: SALINE FLUSH Last Admin: 10/22/19 09:30 Dose: 10 ml Documented by: Spironolactone (Aldactone) 25 mg PO BID [facility] Last Admin: 10/22/19 10:02 Dose: Not Given Documented by: Zolpidem Tartrate (Ambien (Generic)) 5 mg PO QHS [facility] Last Admin: 10/22/19 00:58 Dose: 5 mg Documented by: STROKE Vital Signs/Narrative: Vital Signs Temp Pulse Resp BP Pulse Ox 10/22/19 12:30 98.3 F 70 18 113/53 L 92 Assessment/Plan This patient was seen in conjunction with Barry BA. I have independently interviewed and examined the patient and reviewed pertinent history, examination findings, laboratory and plan of management. I have reviewed the note and agree with the documented findings with the few additional points. In brief, patient is admitted to [facility] for abdominal panniculectomy. He had ventral hernia repair in [facility] 2 years and then gastric sleeve procedure. His weight decreased from 500-406 pounds. Patient had excisional debridement of skin, subcutaneous tissue and fascia on right lateral abdominal wall for necrotizing soft tissue infection with abdominal panniculectomy. 10/21: Patient blood pressure was low secondary to hypovolemia. It recovered with IV fluid bolus. Antihypertensive and cardiac medications were held for hypotension. Patient has multiple comorbidities including chronic systolic heart failure status post AICD, nonischemic cardiomyopathy with last heart cath October 2017 showed normal coronary arteries with EF 15%. Proximal A. fib with WPW syndrome. COPD, history of GI bleed and pulmonary hemorrhage, chronic pain from degenerative joint disease, obstructive sleep apnea, history of DVT, hypothyroidism and anxiety and depression. I have discussed my assessment with Barry BA and orders have been reviewed. Inpatient E&M: 57635 Subs Hosp L2
--- NOTE | 2019-10-22 11:45 | CASEMGMT ---
Addendum entered by Mary Mckeon 10/22/19 13:47: CONCHA REARDON called [facility] and they do not have staffing for Sunday to accept the patient. RN CARON sent referral to [facility] and they also do not have staffing. Referral sent to [facility] and awaiting call back. Referral was also sent to [facility] and they are not able to accept at this time either. CM will continue to follow this patient and plan for a safe discharge. Original Note: CONCHA REARDON in to discuss HHC choices with patient. Patient would like [facility]. CONCHA REARDON sent referral to [facility] and awaiting call back.
[2019-10-22] MEDS: Acetaminophen 325 MG Tablet 650 MG PO (11:51)
[2019-10-22] MEDS: 0.9% Normal Saline 1,000 ML 100 ML IV (11:57)
[2019-10-22] MEDS: Acetaminophen 500 MG Tablet 1000 MG PO ×2 (17:11→22:46)
--- NOTE | 2019-10-22 20:46 | PN.SURG_ITS ---
Subjective: Postop #1 Patient is resting comfortably. VAC applied today. - Physical Exam Vitals/I&O's: Vital Signs Temp Pulse Resp BP Pulse Ox 98.2 F 66 18 94/44 L 100 10/22/19 15:58 10/22/19 15:58 10/22/19 15:58 10/22/19 15:58 10/22/19 15:58 Oxygen Flow Rate (L/min) 2 Oxygen Delivery Method Room Air Weight: 398 lb 13.059 oz Body Mass Index (BMI) 64.0 Intake and Output for Last 24 Hours 10/20/19 10/21/19 10/22/19 23:59 23:59 23:59 Intake Total 806 / 806 2890 / 3590 1964.50 / 1964.50 Output Total 500 / 500 2140 / 2590 1875 / 1875 Balance 306 / 306 750 / 1000 89.50 / 89.50 General: Alert, Oriented x3 HEENT: PERRLA, EOMI Oral: Moist Mucosa Neck: Supple Abdomen: Soft, Non-Distended Skin: Ulcer/ Wound - right abdominal wall wound is stable. No active bleeding seen. VAC applied today. Neurological: Cranial nerves II-XII grossly intact Psych/Mental Status: Normal Affect, Appropriate Microbiology Past 72 Hours 10/21/19 11:00 Tissue - Abdominal Gram Stain - Final 10/21/19 11:00 Tissue - Abdominal Wound Culture - Preliminary No growth-Final to follow Laboratory Results 10/22/19 06:05: WBC 10.7, RBC 3.54 L, Hgb 12.3 L, Hct 36.9 L, MCV 104.2 H, MCH 34.7 H, MCHC 33.3, RDW Std Deviation 54.1 H, RDW Coeff of Florina 14.0, Plt Count 138 L, MPV 10.4, Immature Gran % (Auto) 0.300, Neut % (Auto) 80.7 H, Lymph % (Auto) 5.4 L, [place] % (Auto) 11.0 H, Eos % (Auto) 2.3, Baso % (Auto) 0.3, Absolute Neuts (auto) 8.6 H, Absolute Lymphs (auto) 0.58 L, Nucleated RBC % 0, Differential Comment SCANNED 10/22/19 06:05: Sodium 133 L, Potassium 5.0, Chloride 103, Carbon Dioxide 28.0, Anion Gap 2 L, BUN 34 H, Creatinine 1.26, Estim Creat Clear Calc 56.96, Est GFR (MDRD) Af Amer 75, Est GFR (MDRD) Non-Af 62, BUN/Creatinine Ratio 27.0 H, Glucose 107 H, Calcium 9.1 Current Medications Acetaminophen (Tylenol) 1,000 mg PO Q8 [facility] Last Admin: 10/22/19 17:11 Dose: 1,000 mg Documented by: Albuterol/Ipratropium (Duoneb) 3 ml INHALATION Q6HWA.RT [facility] Last Admin: 10/22/19 13:00 Dose: Not Given Documented by: Amiodarone HCl (Cordarone) 400 mg PO DAILY [facility] Last Admin: 10/22/19 09:31 Dose: Not Given Documented by: Bupropion HCl (Wellbutrin Tablets) 100 mg PO DAILY [facility] Last Admin: 10/22/19 09:30 Dose: 100 mg Documented by: Carvedilol (Coreg) 6.25 mg PO BIDCM [facility] Last Admin: 10/22/19 17:11 Dose: Not Given Documented by: Docusate Sodium (Colace) 100 mg PO BID [facility] Last Admin: 10/22/19 09:30 Dose: 100 mg Documented by: Furosemide (Lasix) 40 mg PO DAILY [facility] Last Admin: 10/22/19 10:02 Dose: Not Given Documented by: Ceftriaxone Sodium 2 gm/ (Sodium Chloride) 50 mls @ 100 mls/hr IV Q12 [facility] Last Infusion: 10/22/19 09:59 Dose: Infused Documented by: Sodium Chloride () 250 mls @ 15 mls/hr IV .[id number] [facility] Last Infusion: 10/22/19 10:56 Dose: 0 mls/hr Documented by: Sodium Chloride () 1,000 mls @ 100 mls/hr IV .Q10H [facility] Last Infusion: 10/22/19 13:15 Dose: 100 mls/hr Documented by: Levothyroxine Sodium (Synthroid) 25 mcg PO DAILY@0600 [facility] Last Admin: 10/22/19 06:35 Dose: 25 mcg Documented by: Lorazepam (Ativan) 0.5 mg PO BID PRN PRN PRN Reason: ANXIETY Magnesium Hydroxide (Milk Of Magnesia) 30 ml PO DAILY [facility] Magnesium Oxide (Mag-Ox 400) 400 mg PO DAILY [facility] Last Admin: 10/22/19 09:30 Dose: 400 mg Documented by: Nutritional Formula (Danish - [place] Flavor) [facility] Last Admin: 10/22/19 17:12 Dose: 1 packet Documented by: Ondansetron HCl (Zofran) 4 mg IV Q6H PRN PRN PRN Reason: NAUSEA Oxycodone HCl (Oxyir) 10 mg PO Q4H PRN PRN PRN Reason: Pain Score 6-10/10 Last Admin: 10/22/19 06:35 Dose: 10 mg Documented by: Pantoprazole Sodium (Protonix) 20 mg PO DAILY [facility] Last Admin: 10/22/19 09:30 Dose: 20 mg Documented by: Polyethylene Glycol (Miralax) 17 gm PO DAILY [facility]ys[facility]) [facility] Last Admin: 10/21/19 21:22 Dose: 50 mg Documented by: Promethazine HCl (Phenergan Tablet) 25 mg PO Q4H PRN PRN PRN Reason: NAUSEA/VOMITING Sacubitril/Valsartan (Entresto 97 Mg-103 Mg Tablet) 1 each PO BID [facility] Last Admin: 10/22/19 09:31 Dose: Not Given Documented by: Senna (Senokot) 1 tablet PO BID [facility] Last Admin: 10/22/19 09:31 Dose: 1 tablet Documented by: Sertraline HCl (Zoloft) 50 mg PO QHS [facility] Last Admin: 10/21/19 21:22 Dose: 50 mg Documented by: Sert[facility] ([facility]ft) [facility] Last Admin: 10/21/19 21:22 Dose: 100 mg Documented by: Sodium Chloride () 10 - 40 ml IV UD PRN PRN Reason: SALINE FLUSH Last Admin: 10/22/19 09:30 Dose: 10 ml Documented by: Spironolactone (Aldactone) 25 mg PO BID [facility] Last Admin: 10/22/19 10:02 Dose: Not Given Documented by: Zolpidem Tartrate (Ambien (Generic)) [facility] Last Admin: 10/22/19 00:58 Dose: 5 mg Documented by: Medical Necessity - Tobacco Use Smoking Status: Never smoker Assessment/Plan All Active Problems (Last Reviewed 07/19/19 @ 22:[address] Anthony Pisano MD) Acute exacerbation of CHF (congestive heart failure) (Acute) 1. Massive abdominal panniculus with panniculitis. 2. Necrotizing soft tissue infection. 3. Recent weight loss. 4. Abdominal wall skin crease intertrigo. 5. Painful lymphedema lower abdominal wall. 6. Lumbar back pain. 7. History of laparoscopic ventral hernia repair with mesh. 8. History of DVT. 9. s/p surgical preparation right abdominal wall with excisional debridement skin, subcutaneous tissue, and fascia necrotizing soft tissue infection (731 cm2) and abdominal panniculectomy. Patient is resting comfortably. Wound is stable. No active bleeding seen. VAC applied today. Awaiting VAC approval. Awaiting Home Health assistance for discharge. Operative cultures are negative thus far. Continue Ceftriaxone. Can change to po antibiotics at discharge. Prealbumin was 24.6. Encourage nutritional supplementation with protein to help the healing process. After discharge, [facility]up [facility].
[2019-10-22] MEDS: SACUBITRIL/VALSARTAN 97-103 MG TABLET 1 EACH PO (22:46)
[2019-10-22] MEDS: Primidone 50 MG Tablet PO (22:46)
[2019-10-22] MEDS: Sertraline 100 MG Tablet PO (22:47)
[2019-10-22] MEDS: Sertraline 50 MG Tablet PO (22:47)
[2019-10-22] MEDS: Spironolactone 25 MG Tablet PO (23:05)
[2019-10-23 05:28] VITALS: BP 110/55; PULSE 61; RESP 18; TEMP 36.4; O2SAT 100
[2019-10-23] MEDS: Acetaminophen 500 MG Tablet 1000 MG PO ×2 (05:32→13:13)
[2019-10-23] MEDS: Levothyroxine 25 MCG TABLET PO (05:33)
[2019-10-23] MEDS: 0.9% Saline Lock 10 ML Syringe IV ×3 (05:36→13:12)
[2019-10-23 06:04] LABS: Absolute Lymphocyte Count 0.83 X10^3/uL (0.83-4.51); Absolute Neutrophil Count 6.5 X10^3/uL (2.0-7.7); Basophil# 0.02 X10^3/uL; Basophil% 0.2 % (0-1); Eosinophil# 0.25 X10^3/uL; Eosinophils% 2.9 % (0-5); Hematocrit 34.3 % (40-54); Hemoglobin 11.2 g/dL (13.0-16.5); Lymphocyte # 0.83 X10^3/ul (4.0); Lymphocyte % 9.7 % (19-41); Mean Corp Hgb Conc 32.7 g/dL (32-36); Mean Corpuscular Hgb 34.5 pg (27.0-32.0); Mean Corpuscular Volume 105.5 fL (80-94); Mean Platelet Vol. 10.7 fl (6.2-12.0); Monocyte% 11.6 % (0-10); NRBC Flagged by Analyzer 0 % (0-5); Neutrophil # 6.47 X10^3/uL (2.7-7.7); Neutrophil % 75.3 % (47-70); Platelet Count 108 K/mm3 (150-450); RBC Distribution Width CV 14.2 % (11.6-14.6); RBC Distribution Width SD 54.4 fl (35.1-43.9); Red Blood Count 3.25 M/mm3 (4.6-6.2); White Blood Count 8.6 K/mm3 (4.4-11.0)
[2019-10-23 06:19] LABS: Anion Gap 2 (5-15); BUN 33 mg/dL (7-18); Calcium,Total 8.8 mg/dL (8.5-10.1); Chloride 105 mmol/L (98-107); Creatinine, Serum 1.03 mg/dL (0.70-1.30); EST Glomerular Filtration Rate 78 mL/min (>60); Est Glom Filt Rate - Afr Amer 95 mL/min (>60); Estimated Creatinine Clearance 69.68 ml/min; Glucose 90 mg/dL (74-106); Potassium 4.3 mmol/L (3.5-5.1); Sodium Level 135 mmol/L (136-145)
--- NOTE | 2019-10-23 08:22 | NURSING ---
Pt states that pain was well controlled last evening. wound VAC dressing intact with good seal noted at 150mmHg low continuous suction. pt states he plans to go home today if home health can be arranged for wound VAC changes. home VAC approved.
[2019-10-23 09:09] VITALS: BP 106/61; PULSE 66; RESP 18; TEMP 36.6; O2SAT 98
[2019-10-23] MEDS: Carvedilol 6.25 MG Tablet PO (09:12)
[2019-10-23] MEDS: oxyCODONE 5 MG Tablet 10 MG PO (09:18)
--- NOTE | 2019-10-23 09:20 | PN_ITS ---
Objective: Patient blood pressure is in systolic 100. No dizziness or headache. Pain is controlled. On physical exam General: Alert, Oriented x3, Cooperative, morbid obesity, BMI 64.1 HEENT: Atraumatic, PERRLA, EOMI, Normocephalic Oral: No Gingival or Mucosal Lesions/ Ulcerations Neck: Supple, No JVD, Negative Carotid Bruits Lungs: Air entry diminished in bilateral lung bases. No crepitation/rhonchi Cardiovascular: Regular rate, Regular Rhythm, Normal S1, Normal S2, No murmurs Abdomen: Bowel Sounds Present, Soft, Non Tender, Non-Distended : No renal angle tenderness. No suprapubic tenderness. Extremities: Mild pedal edema, Capillary Refill Less than 3 Seconds Skin: Surgical wound after excision of skin, subcutaneous tissue and superficial fascia with abdominal panniculectomy. No rashes, No breakdown Musculoskeletal: No Tenderness to Palpation of Joints or Extremities Neurological: Cranial nerves II-XII grossly intact, Deep Tendon Reflexes 2+/4 and Symmetrical, Neuro grossly intact Psych/Mental Status: Normal Affect, Appropriate. Vitals/I&O's: Vital Signs Temp Pulse Resp BP Pulse Ox 97.8 F 66 18 106/61 98 10/23/19 09:09 10/23/19 09:09 10/23/19 09:09 10/23/19 09:09 10/23/19 09:09 Oxygen Flow Rate (L/min) 2.5 Oxygen Delivery Method Room Air Weight: 398 lb 13.059 oz Body Mass Index (BMI) 64.0 Intake and Output for Last 24 Hours 10/21/19 10/22/19 10/23/19 23:59 23:59 23:59 Intake Total 2890 / 3590 2314.50 / 2314.50 1200 / 1200 Output Total 2140 / 2590 2575 / 2575 425 / 425 Balance 750 / 1000 -260.50 / -260.50 775 / 775 Microbiology Past 72 Hours 10/21/19 11:00 Tissue - Abdominal Gram Stain - Final 10/21/19 11:00 Tissue - Abdominal Wound Culture - Preliminary No growth-Final to follow Laboratory Results 10/23/19 05:48: WBC 8.6, RBC 3.25 L, Hgb 11.2 L, Hct 34.3 L, MCV 105.5 H, MCH 34.5 H, MCHC 32.7, RDW Std Deviation 54.4 H, RDW Coeff of Florina 14.2, Plt Count 108 L, MPV 10.7, Immature Gran % (Auto) 0.300, Neut % (Auto) 75.3 H, Lymph % (Auto) 9.7 L, [place] % (Auto) 11.6 H, Eos % (Auto) 2.9, Baso % (Auto) 0.2, Absolute Neuts (auto) 6.5, Absolute Lymphs (auto) 0.83, Nucleated RBC % 0 10/23/19 05:48: Sodium 135 L, Potassium 4.3, Chloride 105, Carbon Dioxide 28.0, Anion Gap 2 L, BUN 33 H, Creatinine 1.03, Estim Creat Clear Calc 69.68, Est GFR (MDRD) Af Amer 95, Est GFR (MDRD) Non-Af 78, BUN/Creatinine Ratio 32.0 H, Glucose 90, Calcium 8.8 Current Medications Acetaminophen (Tylenol) 1,000 mg PO Q8 [facility] Last Admin: 10/23/19 05:32 Dose: 1,000 mg Documented by: Albuterol/Ipratropium (Duoneb) 3 ml INHALATION Q6HWA.RT [facility] Last Admin: 10/23/19 06:43 Dose: Not Given Documented by: Amiodarone HCl (Cordarone) 400 mg PO DAILY [facility] Last Admin: 10/22/19 09:31 Dose: Not Given Documented by: Bupropion HCl (Wellbutrin Tablets) 100 mg PO DAILY [facility] Last Admin: 10/22/19 09:30 Dose: 100 mg Documented by: [facility] Admin: 10/23/19 09:12 Dose: 6.25 mg Documented by: Docusate Sodium (Colace) 100 mg PO BID [facility] Last Admin: 10/22/19 22:44 Dose: 100 mg Documented by: Furosemide (Lasix) 40 mg PO DAILY [facility] Last Admin: 10/22/19 10:02 Dose: Not Given Documented by: Ceftriaxone Sodium 2 gm/ (Sodium Chloride) 50 mls @ 100 mls/hr IV Q12 [facility] Last Infusion: 10/22/19 23:58 Dose: Infused Documented by: Sodium Chloride () 250 mls @ 15 mls/hr IV .[id number] [facility] Last Admin: 10/23/19 02:15 Dose: Not Given Documented by: Levothyroxine Sodium (Synthroid) 25 mcg PO DAILY@0600 [facility] Last Admin: 10/23/19 05:33 Dose: 25 mcg Documented by: Lorazepam (Ativan) 0.5 mg PO BID PRN PRN PRN Reason: ANXIETY Magnesium Hydroxide (Milk Of Magnesia) 30 ml PO DAILY [facility] Magnesium Oxide (Mag-Ox 400) 400 mg PO DAILY [facility] Last Admin: 10/22/19 09:30 Dose: 400 mg Documented by: Nutritional Formula (Danish - [place] Flavor) [facility] Last Admin: 10/23/19 09:12 Dose: 1 packet Documented by: Ondansetron HCl (Zofran) 4 mg IV Q6H PRN PRN PRN Reason: NAUSEA Oxycodone HCl (Oxyir) 10 mg PO Q4H PRN PRN PRN Reason: Pain Score 6-10/10 Last Admin: 10/23/19 09:18 Dose: 10 mg Documented by: Pantoprazole Sodium (Protonix) 20 mg PO DAILY [facility] Last Admin: 10/22/19 09:30 Dose: 20 mg Documented by: Polyethylene Glycol (Miralax) 17 gm PO DAILY [facility] Primidone (Mysoline) 50 mg PO QHS [facility] Last Admin: 10/22/19 22:46 Dose: 50 mg Documented by: Promethazine HCl (Phenergan Tablet) 25 mg PO Q4H PRN PRN PRN Reason: NAUSEA/VOMITING Sacubitril/Valsartan (Entresto 97 Mg-103 Mg Tablet) 1 each PO BID [facility] Last Admin: 10/22/19 22:46 Dose: 1 each Documented by: Francy (Senokot) 1 tablet PO BID [facility] Last Admin: 10/22/19 22:46 Dose: 1 tablet Documented by: Sertraline HCl (Zoloft) 50 mg PO QHS [facility] Last Admin: 10/22/19 22:47 Dose: 50 mg Documented by: Sertraline HCl (Zoloft) 100 mg PO QHS [facility] Last Admin: 10/22/19 22:47 Dose: 100 mg Documented by: Sodium Chloride () 10 - 40 ml IV UD PRN PRN Reason: SALINE FLUSH Last Admin: 10/23/19 05:36 Dose: 10 ml Documented by: Spironolactone (Aldactone) 25 mg PO BID [facility] Last Admin: 10/22/19 23:05 Dose: 25 mg Documented by: Zolpidem Tartrate (Ambien (Generic)) 5 mg PO QHS [facility] Last Admin: 10/22/19 22:44 Dose: 5 mg Documented by: STROKE Vital Signs/Narrative: Vital Signs Temp Pulse Resp BP Pulse Ox 10/23/19 09:09 97.8 F 66 18 106/61 98 10/23/19 05:28 97.5 F L 61 18 110/55 L 100 Medical Necessity - Tobacco Use Smoking Status: Never smoker Assessment/Plan All Active Problems (Last Reviewed 07/19/19 @ 22:[address] Anthony Pisano MD) Acute exacerbation of CHF (congestive heart failure) (Acute) patient is 59-year gentleman with history of morbid obesity is admitted to [facility] for abdominal panniculectomy. He had ventral hernia repair in [facility] 2 years and then gastric sleeve procedure. His weight decreased from 500-406 pounds. Patient had excisional debridement of skin, subcutaneous tissue and fascia on right lateral abdominal wall for necrotizing soft tissue infection with abdominal panniculectomy. Blood pressure was low mostly secondary to hypovolemia and antihypertensive medications were held. Patient was resuscitated with IV fluid. Today patient does not have symptoms of dizziness. Blood pressure is low normal range, expected of EF 15%. Patient has chronic systolic heart failure status post AICD, nonischemic cardiomyopathy with last heart cath October 2017 showed normal coronary arteries with EF 15%. Proximal A. fib with WPW syndrome. Chronic comorbidities COPD, history of GI bleed and pulmonary hemorrhage, chronic pain from degenerative joint disease, obstructive sleep apnea, history of DVT, hypothyroidism and anxiety and depression. Stable. Patient is being discharged today. Follow-up with PCP and Dr. Pisano Inpatient E&M: 75257 Subs Hosp L2
--- NOTE | 2019-10-23 10:11 | CASEMGMT ---
RN CARON received update from [facility] that they are able to accept the patient for a Sunday start of care. RN CARON updated the patient regarding acceptance. CONCHA REARDON updated wound nurse as well. CM to fax discharge information when available.
[2019-10-23] MEDS: Pantoprazole Sodium 20 MG Tablet PO (10:34)
[2019-10-23] MEDS: Docusate Sodium 100 MG Capsule PO (10:35)
[2019-10-23] MEDS: buPROPion 100 MG Tablet PO (10:35)
[2019-10-23] MEDS: Amiodarone 200 MG Tablet 400 MG PO (10:35)
[2019-10-23] MEDS: Furosemide 40 MG Tablet PO (10:36)
[2019-10-23] MEDS: Spironolactone 25 MG Tablet PO (10:36)
[2019-10-23] MEDS: SACUBITRIL/VALSARTAN 97-103 MG TABLET 1 EACH PO (10:36)
[2019-10-23] MEDS: Magnesium Oxide 400 MG Tablet PO (10:36)
[2019-10-23] MEDS: Magnesium Hydroxide 30 ML UDC PO (10:37)
[2019-10-23] MEDS: Polyethylene Glycol 3350 17 GM PACKET PO (10:37)
[2019-10-23] MEDS: Senna Tablet 1 TABLET PO (10:37)
--- NOTE | 2019-10-23 12:11 | NURSING ---
Pt switched over to home VAC. reviewed alarms, etc. with patient. all questions answered. proof of delivery signed and faxed to [facility]. pt denies further needs at this time.
--- NOTE | 2019-10-23 12:44 | PCM.DC ---
You will use the following diet at home:: No restrictions, Other - encourage nutritional supplementation with protein to help the healing process. Discharge Activity: May not drive while taking narcotic pain medications., May Shower - on the days the vac is changed., Use Walker May shower in (days): 2 - on the days the vac is changed. May resume sexual activity in: No Restrictions Weight Bearing Status: Weight bearing as tolerated Call your doctor if your incision/area has: Continuous Slow Oozing, Sudden Increased Bleeding, Increased Pain/ Swelling, Increased Redness, Foul Smelling Discharge, Swelling at the incision site Call your doctor if you observe: Fever of 101 or Higher, Coldness, Increased Pain, Shortness of breath, Chest pain, Calf discomfort, Uncontrolled pain Suture Line Care: - - vac changes three times per week at 150 mmHg continuous suction. Change Dressing in (Days):: 2 - vac changes three times per week. Cleanse incision/area with: Soap & Water - may cleanse the wound with soap and water at the time of the vac change., - - patient may shower on the days the vac is changed. Allergies/Adverse Reactions: Allergies latex Allergy (Verified 08/25/19 06:54) Rash warfarin sodium [From Coumadin] Adverse Reaction (Verified 09/29/19 06:35) Other caused 2 holes in lungs and chest, advised to never take again Medications to take at Discharge Bupropion HCl 100 mg PO DAILY 05/02/14 Magnesium Oxide [Mag-Ox 400] 400 mg PO DAILY 05/02/14 Nitroglycerin (INPATIENT USE) [Nitrostat] 0.4 mg SUBLINGUAL Q5M PRN 07/17/14 Cholecalciferol (Vitamin D3) [Vitamin D3] 3,000 unit PO DAILY 05/08/18 Cyanocobalamin (Vitamin B-12) [Vitamin B-12] 1,000 mcg PO DAILY 05/08/18 Fluticasone Furoate [Arnuity Ellipta] 1 puff IH DAILY@1200 05/08/18 Lorazepam [Ativan] 0.5 mg PO BID 05/08/18 Lorazepam [Ativan] 1 mg PO DAILY 05/08/18 Multivitamin with Minerals [Multiple Vitamin] 2 ea PO DAILY 05/08/18 Sacubitril/Valsartan 97-103 mg [Entresto 97 mg-103 mg Tablet] 1 tab PO BID 05/08/18 Amiodarone HCl 400 mg PO DAILY 11/05/18 Sertraline HCl [Zoloft] 50 mg PO QHS 11/05/18 Sertraline HCl [Zoloft] 150 mg PO DAILY 11/05/18 Zolpidem Tartrate 10 mg PO QHS 11/05/18 Furosemide [Lasix] 40 mg PO DAILY 01/27/19 carvedilol 12.5 mg tablet 6.25 mg PO BID tab 05/22/19 levothyroxine 25 mcg tablet 25 mcg PO DAILY 05/22/19 omeprazole 20 mg capsule,delayed release 20 mg PO DAILY 05/22/19 oxybutynin chloride 15 mg tablet,extended release 24 hr 15 mg PO DAILY 05/22/19 primidone 50 mg tablet 50 mg PO QHS 05/22/19 spironolactone 25 mg tablet 25 mg PO BID tab 05/22/19 tizanidine 4 mg tablet 4 mg PO BID 05/22/19 Senna Plus Tablet 8.6 mg PO BID 10/20/19 Cefadroxil [Duricef] 500 mg PO BID #14 cap 10/23/19 Diazepam [Valium] 5 mg PO 4X/DAY PRN PRN #30 tablet 10/23/19 Docusate Sodium 100 mg PO BID #60 cap 10/23/19 Docusate Sodium [Colace] 100 mg PO BID #0 capsule 10/23/19 Ipratropium/Albuterol Sulfate [Duoneb] 3 ml INHALATION Q6HWA.RT ampul.neb 10/23/19 Oxycodone HCl/Acetaminophen [Percocet 5/325] 1 tablet PO Q4H PRN PRN 7 Days #40 tablet 10/23/19 Polyethylene Glycol 3350 [Miralax] 17 gm PO DAILY packet 10/23/19 Zolpidem Tartrate [Ambien] 5 mg PO QHS tablet 10/23/19 The following prescriptions were given: Docusate Sodium 100 mg PO BID #60 cap Transmission Status: Pending to [address] Cefadroxil [Duricef] 500 mg PO BID #14 cap Transmission Status: Pending to [address] Oxycodone HCl/Acetaminophen [Percocet 5/325] 1 tablet PO Q4H PRN PRN 7 Days #40 tablet PRN Reason: Pain Score 4-5/10 Transmission Status: Received by LIANA HINTON1954 EFREN ALBRIGHT Diazepam [Valium] 5 mg PO 4X/DAY PRN PRN #30 tablet PRN Reason: Spasms Transmission Status: Received by LIANA HINTON1954 EFREN ALBRIGHT Primary Care Physician: Esteban Tim Chi, MD [Primary Care Provider] - Test Results: Test results from this visit will be discussed in further detail at your follow-up appointment, if applicable. Please Follow Up With: Anthony Pisano MD - call [phone] if any questions. When: sunday11/03/19 at [facility] at 800am. Proposed Discharge Date: 10/23/19
--- NOTE | 2019-10-23 13:05 | PCM.DC.SUM ---
Discharge Date and Diagnosis Date of Admission: 10/20/19 Date of Discharge: 10/23/19 - Primary Discharge Diagnosis Acute Problems: Massive abdominal panniculus with panniculitis. Necrotizing soft tissue infection. - Secondary Discharge Diagnosis Chronic Problems: Recent weight loss. Abdominal wall skin crease intertrigo. Painful lymphedema lower abdominal wall. Lumbar back pain. History of laparoscopic ventral hernia repair with mesh. History of DVT. Presence of implantable cardioverter-defibrillator (ICD) History of radiofrequency ablation (RFA) History of left heart catheterization Primary osteoarthritis of right shoulder Rotator cuff disorder COPD (chronic obstructive pulmonary disease) Anxiety and depression Diastolic heart failure TEX (obstructive sleep apnea) Hyperlipidemia Benign essential hypertension Rheumatoid arthritis dilated right ventricle Cardiomyopathy Super obesity WPW (Htwxs-Viquqnqae-Yrteh syndrome) Atrial fibrillation Hospital Course and Treatment Imaging Results: Diagnostic Data Chest X-Ray 10/20/19 15:04 IMPRESSION: Pleural parenchymal changes at the left lung base. Cardiomegaly. Electronically Signed: Chino Crowder, at 15:33 EDT , Service support , Consultations 10/21/19 15:43 Consult: Onc/Wound/truss puller helper Routine Comment: Reason for Consult:: wound VAC right lower abd Hospitalist Group - Dr. Monk and Dr. Correa Operations: - - 10/21/19 - 1. Surgical preparation right abdominal wall with excisional debridement skin, subcutaneous tissue, and fascia necrotizing soft tissue infection (731 cm2). 2. Abdominal panniculectomy. Procedures: Wound vac placement Summary of Care Provided: 59 year old male presents for evaluation for an abdominal panniculectomy. He had ventral hernia repair at the [facility] 2 years ago in preparation for a gastric bypass procedure to help him lose weight, (gastric sleeve). He states that he went from 500 lbs down to 406 lbs. He was told to get down to 350 lbs before they would consider the gastric bypass procedure. He has difficulty walking due to the size of his pannus and he has severe back pain. He walks with a walker which is difficult because of a rotator cuff problem in his shoulders. He denies fever. He denies bloating. He denies nausea and vomiting. He goes to Pain Management for his lumbar back pain. Because of his worsening panniculitis, he was admitted the day before surgery on 10/20/19 for IV antibiotic therapy and to hydrate him prior to surgery. Also would obtain a Hospitalist Consult for medical management to determine if additional studies are necessary prior to surgery. He has cardiac issues and has an implanted defibrillator. He was started on Ceftriaxone. He was taken to surgery on 10/21/19 where he underwent surgical preparation right abdominal wall with excisional debridement skin, subcutaneous tissue, and fascia necrotizing soft tissue infection (731 cm2) and abdominal panniculectomy. He tolerated the procedure well. He was afebrile during his hospital stay. He was hemodynamically stable. The VAC was placed the next day without difficulty. His Prealbumin from 10/20/19 was 24.6. Encourage nutritional supplementation with protein to help the healing process. On the second postop day, he was tolerating po analgesia and a Home Health agency was arranged. His operative cultures were negative at the time of discharge. Will discharge him on po Cefadroxil. When the culture is finalized, antibiotic modification may be necessary. On the second postop day he was discharged home in satisfactory condition. Wrote script for Cefadroxil for a week until the operative cultures have been finalized. Wrote scripts for Percocet for pain (40 tabs) and for Valium for spasm (30 tabs). Wrote script for Colace for constipation (60 tabs). Home Health will assist with the VAC changes three times per week at 150 mmHg continuous suction. After discharge, he will followup [facility] on 11/03/19 at 800am. If there is a plateau in the healing process, can proceed with delayed closure with skin grafting. In approximately 3-6 months depending on the healing process, additional surgery may be necessary. I'm waiting on records from [facility] regarding the laparoscopic ventral hernia repair 2 years ago. Subjective: Postop #2 Patient is resting comfortably. - Physical Exam Vitals/I&O's: Vital Signs Temp Pulse Resp BP Pulse Ox 97.8 F 66 18 106/61 98 10/23/19 09:09 10/23/19 09:09 10/23/19 09:09 10/23/19 09:09 10/23/19 09:09 Oxygen Flow Rate (L/min) 2.5 Oxygen Delivery Method Room Air Weight: 398 lb 13.059 oz Body Mass Index (BMI) 64.0 Intake and Output for Last 24 Hours 10/21/19 10/22/19 10/23/19 23:59 23:59 23:59 Intake Total 2890 / 3590 2314.50 / 2314.50 1200 / 1200 Output Total 2140 / 2590 2575 / 2575 425 / 425 Balance 750 / 1000 -260.50 / -260.50 775 / 775 General: Alert, Oriented x3 HEENT: PERRLA, EOMI Oral: Moist Mucosa Neck: Supple Abdomen: Soft, Non-Distended Skin: Ulcer/ Wound - right abdominal wall wound is stable. VAC in place. Minimal drainage in the canister. Neurological: Cranial nerves II-XII grossly intact Psych/Mental Status: Normal Affect, Appropriate Microbiology Past 72 Hours 10/21/19 11:00 Tissue - Abdominal Gram Stain - Final 10/21/19 11:00 Tissue - Abdominal Wound Culture - Preliminary No growth-Final to follow 10/21/19 11:00 Tissue - Abdominal Anaerobic Culture - Preliminary No growth in 48 hours. Laboratory Results 10/23/19 05:48: WBC 8.6, RBC 3.25 L, Hgb 11.2 L, Hct 34.3 L, MCV 105.5 H, MCH 34.5 H, MCHC 32.7, RDW Std Deviation 54.4 H, RDW Coeff of Florina 14.2, Plt Count 108 L, MPV 10.7, Immature Gran % (Auto) 0.300, Neut % (Auto) 75.3 H, Lymph % (Auto) 9.7 L, Dorado % (Auto) 11.6 H, Eos % (Auto) 2.9, Baso % (Auto) 0.2, Absolute Neuts (auto) 6.5, Absolute Lymphs (auto) 0.83, Nucleated RBC % 0 10/23/19 05:48: Sodium 135 L, Potassium 4.3, Chloride 105, Carbon Dioxide 28.0, Anion Gap 2 L, BUN 33 H, Creatinine 1.03, Estim Creat Clear Calc 69.68, Est GFR (MDRD) Af Amer 95, Est GFR (MDRD) Non-Af 78, BUN/Creatinine Ratio 32.0 H, Glucose 90, Calcium 8.8 Current Medications Acetaminophen (Tylenol) 1,000 mg PO Q8 MATHEUS Last Admin: 10/23/19 05:32 Dose: 1,000 mg Documented by: Albuterol/Ipratropium (Duoneb) 3 ml INHALATION Q6HWA.RT [facility] Last Admin: 10/23/19 06:43 Dose: Not Given Documented by: Amiodarone HCl (Cordarone) 400 mg PO DAILY [facility] Last Admin: 10/23/19 10:35 Dose: 400 mg Documented by: Bupropion HCl (Wellbutrin Tablets) 100 mg PO DAILY [facility] Last Admin: 10/23/19 10:35 Dose: 100 mg Documented by: [facility] Admin: 10/23/19 09:12 Dose: 6.25 mg Documented by: Docusate Sodium (Colace) 100 mg PO BID [facility] Last Admin: 10/23/19 10:35 Dose: 100 mg Documented by: Furosemide (Lasix) 40 mg PO DAILY [facility] Last Admin: 10/23/19 10:36 Dose: 40 mg Documented by: Ceftriaxone Sodium 2 gm/ (Sodium Chloride) 50 mls @ 100 mls/hr IV Q12 [facility] Last Admin: 10/23/19 10:31 Dose: 100 mls/hr Documented by: Sodium Chloride () 250 mls @ 15 mls/hr IV .[id number] [facility] Last Admin: 10/23/19 02:15 Dose: Not Given Documented by: Levothyroxine Sodium (Synthroid) 25 mcg PO DAILY@0600 [facility] Last Admin: 10/23/19 05:33 Dose: 25 mcg Documented by: Lorazepam (Ativan) 0.5 mg PO BID PRN PRN PRN Reason: ANXIETY Magnesium Hydroxide (Milk Of Magnesia) 30 ml PO DAILY [facility] Last Admin: 10/23/19 10:37 Dose: 30 ml Documented by: Magnesium Oxide (Mag-Ox 400) 400 mg PO DAILY [facility] Last Admin: 10/23/19 10:36 Dose: 400 mg Documented by: Nutritional Formula (Danish - [place] Flavor) [facility] Last Admin: 10/23/19 09:12 Dose: 1 packet Documented by: Ondansetron HCl (Zofran) 4 mg IV Q6H PRN PRN PRN Reason: NAUSEA Oxycodone HCl (Oxyir) 10 mg PO Q4H PRN PRN PRN Reason: Pain Score 6-10/10 Last Admin: 10/23/19 09:18 Dose: 10 mg Documented by: Pantoprazole Sodium (Protonix) 20 mg PO DAILY [facility] Last Admin: 10/23/19 10:34 Dose: 20 mg Documented by: Polyethylene Glycol (Miralax) 17 gm PO DAILY [facility] Last Admin: 10/23/19 10:37 Dose: 17 gm Documented by: Primidone (Mysoline) 50 mg PO QHS [facility] Last Admin: 10/22/19 22:46 Dose: 50 mg Documented by: Promethazine HCl (Phenergan Tablet) 25 mg PO Q4H PRN PRN PRN Reason: NAUSEA/VOMITING Sacubitril/Valsartan (Entresto 97 Mg-103 Mg Tablet) 1 each PO BID [facility] Last Admin: 10/23/19 10:36 Dose: 1 each Documented by: Francy (Senokot) 1 tablet PO BID [facility] Last Admin: 10/23/19 10:37 Dose: 1 tablet Documented by: Sertraline HCl (Zoloft) 50 mg PO QHS [facility] Last Admin: 10/22/19 22:47 Dose: 50 mg Documented by: Sertraline HCl (Zoloft) 100 mg PO QHS [facility] Last Admin: 10/22/19 22:47 Dose: 100 mg Documented by: Sodium Chloride () 10 - 40 ml IV UD PRN PRN Reason: SALINE FLUSH Last Admin: 10/23/19 10:30 Dose: 10 ml Documented by: Spironolactone (Aldactone) 25 mg PO BID [facility] Last Admin: 10/23/19 10:36 Dose: 25 mg Documented by: Zolpidem Tartrate (Ambien (Generic)) 5 mg PO QHS [facility] Last Admin: 10/22/19 22:44 Dose: 5 mg Documented by: Discharge Diet: No Restrictions, - - encourage nutritional supplementation with protein to help the healing process. Discharge Activity: May not drive while taking narcotic pain medications., May Shower - on the days the vac is changed., Use Walker May shower in (days): 2 - on the days the vac is changed. May resume sexual activity in: No Restrictions Weight Bearing Status: Weight bearing as tolerated Call your doctor if your incision/area has: Continuous Slow Oozing, Sudden Increased Bleeding, Increased Pain/ Swelling, Increased Redness, Foul Smelling Discharge, Swelling at the incision site Call your doctor if you observe: Fever of 101 or Higher, Coldness, Increased Pain, Shortness of breath, Chest pain, Calf discomfort, Uncontrolled pain Suture Line Care: - - vac changes three times per week at 150 mmHg continuous suction. Change Dressing in (Days):: 2 - vac changes three times per week. Cleanse incision/area with: Soap & Water - may cleanse the wound with soap and water at the time of the vac change., - - patient may shower on the days the vac is changed. Home Medications: Medications to take at Discharge Bupropion HCl 100 mg PO DAILY 05/02/14 Magnesium Oxide [Mag-Ox 400] 400 mg PO DAILY 05/02/14 Nitroglycerin (INPATIENT USE) [Nitrostat] 0.4 mg SUBLINGUAL Q5M PRN 07/17/14 Cholecalciferol (Vitamin D3) [Vitamin D3] 3,000 unit PO DAILY 05/08/18 Cyanocobalamin (Vitamin B-12) [Vitamin B-12] 1,000 mcg PO DAILY 05/08/18 Fluticasone Furoate [Arnuity Ellipta] 1 puff IH DAILY@1200 05/08/18 Lorazepam [Ativan] 0.5 mg PO BID 05/08/18 Lorazepam [Ativan] 1 mg PO DAILY 05/08/18 Multivitamin with Minerals [Multiple Vitamin] 2 ea PO DAILY 05/08/18 Sacubitril/Valsartan 97-103 mg [Entresto 97 mg-103 mg Tablet] 1 tab PO BID 05/08/18 Amiodarone HCl 400 mg PO DAILY 11/05/18 Sertraline HCl [Zoloft] 50 mg PO QHS 11/05/18 Sertraline HCl [Zoloft] 150 mg PO DAILY 11/05/18 Zolpidem Tartrate 10 mg PO QHS 11/05/18 Furosemide [Lasix] 40 mg PO DAILY 01/27/19 carvedilol 12.5 mg tablet 6.25 mg PO BID tab 05/22/19 levothyroxine 25 mcg tablet 25 mcg PO DAILY 05/22/19 omeprazole 20 mg capsule,delayed release 20 mg PO DAILY 05/22/19 oxybutynin chloride 15 mg tablet,extended release 24 hr 15 mg PO DAILY 05/22/19 primidone 50 mg tablet 50 mg PO QHS 05/22/19 spironolactone 25 mg tablet 25 mg PO BID tab 05/22/19 tizanidine 4 mg tablet 4 mg PO BID 05/22/19 Senna Plus Tablet 8.6 mg PO BID 10/20/19 Cefadroxil [Duricef] 500 mg PO BID #14 cap 10/23/19 Diazepam [Valium] 5 mg PO 4X/DAY PRN PRN #30 tab 10/23/19 Docusate Sodium 100 mg PO BID #60 cap 10/23/19 Docusate Sodium [Colace] 100 mg PO BID #0 cap 10/23/19 Ipratropium/Albuterol Sulfate [Duoneb] 3 ml INHALATION Q6HWA.RT ampul.neb 10/23/19 Oxycodone HCl/Acetaminophen [Percocet 5/325] 1 tab PO Q4H PRN PRN 7 Days #40 tab 10/23/19 Polyethylene Glycol 3350 [Miralax] 17 gm PO DAILY packet 10/23/19 Zolpidem Tartrate [Ambien] 5 mg PO QHS tab 10/23/19 Following Prescriptions Were Given to Patient: Docusate Sodium 100 mg PO BID #60 cap Transmission Status: Received by LIANA RUANO [facility] Cefadroxil [Duricef] 500 mg PO BID #14 cap Transmission Status: [facility] [place] [address] Oxycodone HCl/Acetaminophen [Percocet 5/325] 1 tab PO Q4H PRN PRN 7 Days #40 tab PRN Reason: Pain Score 4-5/10 Transmission Status: Received by LIANA JOHNSON[address] [place] [address] Diazepam [Valium] 5 mg PO 4X/DAY PRN PRN #30 tab PRN Reason: Spasms Transmission Status: [facility] [place] [address] Primary Care Physician: Esteban Tim Chi, MD [Primary Care Provider] - Please Follow Up With: Anthony Pisano MD - call [phone] if any questions. When: sunday11/03/19 at [facility] at 800am. Disposition: Home with Home Health Minutes spent on discharge:: 35 Patient Condition:: Stable Medical Necessity - Tobacco Use Smoking Status: Never smoker Meaningful Use Info Meaningful Use Diagnoses (Choose all that apply): None applicable
[2019-10-23 13:18] VITALS: BP 96/48; PULSE 65; RESP 18; TEMP 36.5; O2SAT 95
--- NOTE | 2019-10-23 14:53 | CASEMGMT ---
Care Coordination: CONCHA Ford CM with [facility] updated on pt's discharge status, wound vac, and home health set-up with [facility] for fpc services. Per Liliana, she will ensure pt's aide services are resumed through [place] and will call pt this evening in follow-up. Alessandra Garrido RN CM
== END 2019-10-23 13:50 | disposition home health service (06) | DRG 571 ==
PROVIDERS: Anesthesiology; Physician Assistant; Admitting Provider Surgery; PCP Family Medicine Geriatric Medicine; Referring Provider Surgery; Visit Provider Internal Medicine
PROC: 0JB80ZZ Excision of Abdomen Subcutaneous Tissue and Fascia, Open Approach (ICD-10-PCS; CPT 15830; principal; 2019-10-21 09:15)
DX: M79.3 Panniculitis, unspecified (principal); I96 Gangrene, not elsewhere classified; Z68.44 Body mass index [BMI] 60.0-69.9, adult; I42.8 Other cardiomyopathies; I50.42 Chronic combined systolic (congestive) and diastolic (congestive) heart failure; E78.5 Hyperlipidemia, unspecified; M54.5 Low back pain; G47.33 Obstructive sleep apnea (adult) (pediatric); L30.4 Erythema intertrigo; I89.0 Lymphedema, not elsewhere classified; Z86.718 Personal history of other venous thrombosis and embolism; E66.01 Morbid (severe) obesity due to excess calories; I48.0 Paroxysmal atrial fibrillation; J44.9 Chronic obstructive pulmonary disease, unspecified; I11.0 Hypertensive heart disease with heart failure; E03.9 Hypothyroidism, unspecified; M06.9 Rheumatoid arthritis, unspecified; G89.29 Other chronic pain; F41.9 Anxiety disorder, unspecified; F32.9 Major depressive disorder, single episode, unspecified; M19.011 Primary osteoarthritis, right shoulder; I45.6 Pre-excitation syndrome; K59.00 Constipation, unspecified; Z95.810 Presence of automatic (implantable) cardiac defibrillator; Z98.84 Bariatric surgery status
CPT/HCPCS: 36415; 71045; 80048; 80053; 83735; 84134; 84443; 85025; 85027; 85652; 86140; 86850; 86900; 86901; 87070; 87075; 87102; 87205; 87206; 87635; 88304; 93005; 94799; 97802; 99251; J7030; J7120; A4216; G0463; J0696; J2405; U0003

== ENCOUNTER 2019-11-03 15:05 | Inpatient (IN) | payer MEDICARE, MEDICAID, SELFPAY ==
[2019-11-03] VITALS (7 sets, daily range): BP systolic 81–101; BP diastolic 39–56; PULSE 59–70; RESP 16–18; TEMP 36.5–37.4; O2SAT 94–96; BMI 64.2; BMI 62.3
--- NOTE | 2019-11-03 15:15 | PCM.HP.BLA ---
History and Physical Date of Admission: 11/03/19 History and Physical Date of Admission: 10/20/19 HISTORY OF PRESENT ILLNESS 59 year old male presents for evaluation for an abdominal panniculectomy. He had ventral hernia repair at the [facility] 2 years ago in preparation for a gastric bypass procedure to help him lose weight, (gastric sleeve). He states that he went from 500 lbs down to 406 lbs. He was told to get down to 350 lbs before they would consider the gastric bypass procedure. He has difficulty walking due to the size of his pannus and he has severe back pain. He walks with a walker which is difficult because of a rotator cuff problem in his shoulders. He denies fever. He denies bloating. He denies nausea and vomiting. He goes to Pain Management for his lumbar back pain. PAST MEDICAL HISTORY CHF Arthritis Atrial fibrillation Hypertension Cardiomyopathy COPD Hyperlipidemia Lumbar back pain Lymphedema TEX Pancreatitis Ventral hernia WFW syndrome DVT Ulcer PAST SURGICAL HISTORY Cardiac ablation Cholecystectomy Gastric surgery Left heart catheterization Ventral hernia repair with mesh ICD (Implantable cardioverter-defibrillator) ALLERGIES latex warfarin sodium [From Coumadin] MEDICATIONS Aspirin [Aspirin, Baby] Bupropion HCl Magnesium Oxide [Mag-Ox 400] Nitroglycerin [Nitrostat] Cholecalciferol (Vitamin D3) [Vitamin D3] Cyanocobalamin (Vitamin B-12) [Vitamin B-12] Fluticasone Furoate [Arnuity Ellipta] Lorazepam [Ativan] Multivitamin with Minerals [Multiple Vitamin] Sacubitril/Valsartan [Entresto Tablet] Amiodarone HCl Oxycodone HCl Sertraline HCl [Zoloft] Zolpidem Tartrate Furosemide [Lasix] carvedilol docusate sodium levothyroxine omeprazole oxybutynin chloride primidone spironolactone tizanidine FAMILY HISTORY Sister - Arthritis Brother - Psychiatric care SOCIAL HISTORY Smoking Status: Never smoker REVIEW OF SYSTEMS General - Denies fever. He has fatigue and recent weight loss of 100 lbs. He is morbidly obese. Eyes - Denies cataracts and glaucoma. ENT - Denies nasal congestion and sore throat. Endocrine - Has excessive thirst and urination. Hypothyroidism. atSkin - Denies suspicious lesions and skin cancer. Lymphedema of his pannus. Has abdominal wall skin crease intertrigo. Musculoskeletal - Has joint pain, joint stiffness, weakness of muscles and joints, back pain, and arthritis. He was told he needs knee replacements and rotator cuff surgery after he loses more weight. Neuro - Denies headaches. Cardiovascular - Heart ablations in 1998 and 2000 for WPW and history of Afib. Has chest pain. Has fatigue. Psych - Denies anxiety. Has depression. Respiratory - Denies chronic cough. Has shortness of breath. Has sleep apnea, uses Bipap. Gastrointestinal - Denies nausea, vomiting, diarrhea. Has constipation. Has a history of gallstones and had Cholecystectomy 1989. Hematological - He had a history of easy bruising in the past with blood clots but the Coumadin caused GI bleeding. Genitourinary - History of urinary incontinence/dribbling and frequency. Denies hematuria. PHYSICAL EXAMINATION General - Alert and Oriented. HEENT - PERRL. EOMI. Throat is clear. Neck - Supple and nontender. No cervical adenopathy. Lungs - Clear to auscultation. Heart - Regular rate and rhythm. Abdomen - Soft and nondistended. Morbidly obese with massive panniculus that extends to his knees. There is associated panniculitis. It is very heavy. He has dependent lymphedema. No ulcerations. The dependent portion is tender to palpation. No evidence of redness or fluctuance. Has abdominal wall skin crease intertrigo. Could not discern if there are any additional hernias secondary to the large size of the panniculus. No abdominal wall scarring. Has had laparoscopic incisions. Extremities - FROM. No axillary adenopathy. Radial pulses are palpable. Neuro - CN II-XII grossly intact. Psych - Normal mood and affect. ASSESSMENT 1. Massive abdominal panniculus with panniculitis. 2. Recent weight loss. 3. Abdominal wall skin crease intertrigo. 4. Painful lymphedema lower abdominal wall. 5. Lumbar back pain. 6. History of laparoscopic ventral hernia repair with mesh. 7. History of DVT. PLAN Patient has a massive abdominal panniculus with panniculitis. He has associated cardiac issues and has an implanted defibrillator. He is being managed by Dr. Fisher. Patient would benefit from an abdominal panniculectomy. This should help with his painful symptomatology. He had a CT Abdomen/Pelvis on 07/30/19. It showed mild increased markings at the left lung base suggestive of scarring. Cardiomegaly. There is decreased attenuation of the liver consistent with steatosis. There are surgical clips in the gallbladder fossa consistent with a prior cholecystectomy. Normal spleen. Normal pancreas. Normal bilateral adrenal glands. Normal right kidney. Normal left kidney. The seventh of prior bariatric surgery with a subtotal resection of the stomach. Normal small intestine. Normal colon. The appendix is visualized and appears normal. Normal abdominal aorta. Normal inferior vena cava. Normal retroperitoneum. Normal urinary bladder. There is evidence of diffuse thickening of the skin with increased markings in the subcutaneous fat of the panniculus of the lower abdomen. Left-sided ventral hernia. No small bowel loops are seen at this time with her. There are diffuse degenerative changes of the visualized lumbar spine. May have to admit him the day before surgery for IV antibiotics and to hydrate him prior to surgery. Also would obtain a Hospitalist Consult to determine if additional studies are necessary prior to surgery. His Operations Manager Assistant is Dr. Fisher. Told him we cannot remove the whole abdominal panniculus at one time because of the risk of bleeding and other issues secondary to changes in fluid shifts since there is heavy dependent lymphedema present. Realistically will do the surgery in stages. Will excise as much of the abdominal panniculus as we can until a certain blood loss is obtained, usually between 450-500 ml. We would then stop and pack the wound and begin the VAC the following day. Post discharge, will followup with [facility] at the [facility]. I anticipate every 3-6 months, would proceed with additional surgery. Depending on how he responds at the time of surgery, the number of procedures may range between 6-10 procedures. He voices understanding. Will obtain previous records from the [facility] regarding the previous ventral hernia repair with mesh. Depending on how well the wound can be managed at home after surgery would determine if the patient needs to go to an ECF after surgery. He also has thyroid disease and will need a preop TSH level drawn and it needs to be less than 10 in order to proceed with elective surgery. Patient was informed of the risks and complications of the procedure including alternatives to surgery. These were discussed with the patient personally. Patient voices understanding and wishes to proceed. Some of the risks and complications were included in a form from the [employer]. We discussed the current risks associated with COVID-19. While it is understood that there is a community spread of COVID-19, the risk of clarence COVID-19 while at [facility] ([facility]) is very low; however, the risk cannot be completely mitigated because of the community spread of the disease. We discussed in detail the risk of exposure to and/or potential harm posed by the COVID-19 virus with having a surgery/procedure at this time versus the risk of delaying the surgery/procedure. It is not possible to know either the risk of delaying the surgery or procedure or chance of getting an infection with perfect accuracy, but a joint decision was made to proceed at this time with the scheduled surgery/procedure as indicated on the consent form. Patient was notified that we will need to comply with any screening or testing [facility] wishes to perform or that surgery may be delayed for any positive results. Discussed with the patient that I was tested for COVID-19 on 09/25/19. My test was negative. My testing regimen at this time is to be COVID-19 tested every 2 weeks or so. I was recently tested on 10/09/19, and that test was negative. Procedure Criteria Procedure Type: Elective COVID Risk Discussion: The surgeon/proceduralist and patient have discussed in detail the risk of exposure to and/or potential harm posed by the COVID-19 virus with having a surgery/procedure at this time versus the risk of delaying the surgery/procedure. It is not possible to know either the risk of delaying the surgery or procedure or chance of getting an infection with perfect accuracy, but a joint decision was made between the patient and the surgeon/proceduralist to proceed at this time with the scheduled surgery/procedure as indicated on the consent form.
--- NOTE | 2019-11-03 15:32 | NURSING ---
wound photo: right lower abdomen
[2019-11-03 15:48] LABS: Hemoglobin 10.5 g/dL (13.0-16.5); Mean Corp Hgb Conc 32.8 g/dL (32-36); Mean Corpuscular Volume 106.7 fL (80-94); Mean Platelet Vol. 9.5 fl (6.2-12.0); Platelet Count 216 K/mm3 (150-450); RBC Distribution Width CV 14.3 % (11.6-14.6); RBC Distribution Width SD 55.5 fl (35.1-43.9); White Blood Count 11.4 K/mm3 (4.4-11.0)
[2019-11-03 16:11] LABS: Erythrocyte Sedimentation Rate 81 mm/hr (0-20)
[2019-11-03 16:18] LABS: ALB/GLOB Ratio 0.6 RATIO (0.9-2.4); AST(SGOT) 11 U/L (15-37); Alanine Aminotransfer ALT/SGPT 15 U/L (16-61); Albumin, Serum 2.8 g/dL (3.2-5.0); Alkaline Phosphatase 136 U/L (45-117); Anion Gap 7 (5-15); BUN 60 mg/dL (7-18); BUN/Creat Ratio 23.7 RATIO (10-20); Calcium,Total 8.9 mg/dL (8.5-10.1); Chloride 105 mmol/L (98-107); Creatinine, Serum 2.53 mg/dL (0.70-1.30); EST Glomerular Filtration Rate 28 mL/min (>60); Est Glom Filt Rate - Afr Amer 34 mL/min (>60); Estimated Creatinine Clearance 28.37 ml/min; Globulin 4.4 g/dL (2.2-4.2); Glucose 104 mg/dL (74-106); Potassium 5.6 mmol/L (3.5-5.1); Prealbumin 14.9 mg/dL (20.0-40.0); Protein, Total 7.2 g/dL (6.4-8.2); Sodium Level 136 mmol/L (136-145)
[2019-11-03] MEDS: Juven (unflavored) Packet 1 PACKET PO (16:53)
[2019-11-03] MEDS: oxyCODONE 5 MG Tablet 10 MG PO (16:59)
[2019-11-03 17:05] LABS: International Normalized Ratio 1.1; Prothrombin Time (Protime)PT. 13.7 SECONDS (11.7-14.9)
--- NOTE | 2019-11-03 18:40 | RAD_ITS ---
STUDY: X-RAY CHEST REASON FOR EXAM: Male, 59 years old. PICC line placement TECHNIQUE: 2 AP portable view of the chest. COMPARISON: October 20 2019 FINDINGS: New right-sided PICC line with the tip in the mid SVC. Stable left chest cardiac device and leads. There is no demonstrated pleural abnormality. Chronic pulmonary vascular congestion and mild edema. The heart is moderately enlarged. No visualized focal consolidation. Stable remaining visualized structures. RAD/CXR for Line Placement IMPRESSION: Chronic CHF Electronically Signed: Giuseppe Hernandez MD at 19:07 EDT , Service support ,
[2019-11-03] MEDS: 0.9% Normal Saline 1,000 ML 60 ML IV (19:35)
[2019-11-03] MEDS: 0.9% Saline Lock 10 ML Syringe IV (19:40)
--- NOTE | 2019-11-03 19:58 | PCM.RX.CS ---
Consult Pharmacy has been consulted to manage selected antiobiotic: Vancomycin Type of Consult: New start Suspected Infection: Skin/Soft tissue Labs: Sodium 136 mmol/L (136-145) 11/03/19 15:40 Potassium 5.6 mmol/L (3.5-5.1) H 11/03/19 15:40 Chloride 105 mmol/L (98-107) 11/03/19 15:40 Carbon Dioxide 24.0 mmol/L (21.0-32.0) 11/03/19 15:40 Anion Gap 7 (5-15) 11/03/19 15:40 BUN 60 mg/dL (7-18) H 11/03/19 15:40 Creatinine 2.53 mg/dL (0.70-1.30) H 11/03/19 15:40 Est GFR (MDRD) Af Amer 34 mL/min (>60) L 11/03/19 15:40 Est GFR (MDRD) Non-Af 28 mL/min (>60) L 11/03/19 15:40 BUN/Creatinine Ratio 23.7 RATIO (10-20) H 11/03/19 15:40 Glucose 104 mg/dL (74-106) 11/03/19 15:40 Goal Trough: 10-15 mcg/mL Pharmacy Plan for Drug Dosing: NEW START IV VANCOMYCIN Consulting Physician: MERE Indication: CELLULITIS Goal Trough: 10-15 MG/DL SrCr: 2.53 CrCl: 48.2 ML/MIN USING ADJUSTED BODY WEIGHT Comments: INITIAL 15MG/KG DOSE GIVEN 11/02 @ 1935. PICC INSERTED TODAY. Vancomycin Dose: 1500MG Q24H STARTING 11/03 @ 1930. WILL ORDER TROUGH PRIOR TO THE 3RD DOSE. Pharmacy Service will continue to monitor and adjust dosing as required. Labs to be done on [date and time ordered]: 11/05/19 @ 1900
--- NOTE | 2019-11-03 21:55 | SLEEP ---
Set up pt's home BiPAP unit with 3 lpm O2 bleed in.
[2019-11-03] MEDS: tiZANidine HCl 2 MG Tablet 4 MG PO (21:57)
[2019-11-03] MEDS: LORazepam 0.5 MG Tablet PO (21:57)
[2019-11-03] MEDS: Docusate Sodium 100 MG Capsule PO (21:58)
[2019-11-03] MEDS: Spironolactone 25 MG Tablet PO (21:58)
[2019-11-03] MEDS: Senna Tablet 1 TABLET PO (21:58)
[2019-11-03] MEDS: Zolpidem Tartrate 5 MG Tablet PO (21:58)
[2019-11-03] MEDS: SACUBITRIL/VALSARTAN 97-103 MG TABLET 1 EACH PO (21:58)
[2019-11-03] MEDS: Sertraline 50 MG Tablet PO (21:58)
[2019-11-03] MEDS: Carvedilol 6.25 MG Tablet PO (21:58)
[2019-11-04] VITALS (9 sets, daily range): BP systolic 72–119; BP diastolic 32–72; PULSE 51–57; RESP 16–18; TEMP 36.6–37.3; O2SAT 93–100
[2019-11-04 00:10] LABS: M R Staph aureus DNA By PCR Negative (Negative); Probe Check PASS; Specimen Processing Control PASS; Staph aureus DNA By PCR NEGATIVE (Negative)
[2019-11-04] MEDS: oxyCODONE 5 MG Tablet 10 MG PO ×2 (00:30→08:32)
[2019-11-04] MEDS: Levothyroxine 25 MCG TABLET PO (05:36)
[2019-11-04 06:13] LABS: Hematocrit 31.5 % (40-54); Hemoglobin 10.1 g/dL (13.0-16.5); Mean Corp Hgb Conc 32.1 g/dL (32-36); Mean Corpuscular Hgb 34.4 pg (27.0-32.0); Mean Corpuscular Volume 107.1 fL (80-94); Mean Platelet Vol. 9.9 fl (6.2-12.0); Platelet Count 214 K/mm3 (150-450); RBC Distribution Width CV 14.4 % (11.6-14.6); RBC Distribution Width SD 56.8 fl (35.1-43.9); Red Blood Count 2.94 M/mm3 (4.6-6.2); White Blood Count 9.4 K/mm3 (4.4-11.0)
[2019-11-04 07:42] LABS: Anion Gap 5 (5-15); BUN 62 mg/dL (7-18); BUN/Creat Ratio 22.5 RATIO (10-20); Calcium,Total 8.5 mg/dL (8.5-10.1); Chloride 111 mmol/L (98-107); Creatinine, Serum 2.75 mg/dL (0.70-1.30); EST Glomerular Filtration Rate 25 mL/min (>60); Est Glom Filt Rate - Afr Amer 31 mL/min (>60); Glucose 90 mg/dL (74-106); Potassium 5.6 mmol/L (3.5-5.1); Sodium Level 137 mmol/L (136-145)
[2019-11-04] MEDS: Juven (unflavored) Packet 1 PACKET PO ×2 (07:55→16:49)
[2019-11-04] MEDS: Multivitamins,Ther W-Minerals Tablet 2 TABLET PO (07:55)
[2019-11-04] MEDS: Senna Tablet 1 TABLET PO ×2 (07:57→22:10)
[2019-11-04] MEDS: Tolterodine Tartrate 4 MG CAP.SA PO (07:57)
[2019-11-04] MEDS: Cyanocobalamin 500 MCG Tablet 1000 MCG PO (07:57)
[2019-11-04] MEDS: Furosemide 40 MG Tablet PO (07:57)
--- NOTE | 2019-11-04 08:36 | NURSING ---
Wound VAC dressing intact with good seal noted at 150mmHg low continuous suction. Did place an extra piece of drape to the right lateral wound edges since the drape was pulling up from the skin slightly. pt medicated with OxyIr per request. denies further needs at this time.
--- NOTE | 2019-11-04 11:40 | PN.SURG_ITS ---
Patient Problems: Active and Suspected Problems (Last Reviewed 07/19/19 @ 22:[address] Anthony Pisano MD) Open wound, abdominal wall, lateral (Acute) Wound infection after surgery (Acute) Subjective: Patient is not feeling well. He states he is having pain. Objective: Getting back into bed with assistance form OT. - Physical Exam Vitals/I&O's: Vital Signs Temp Pulse Resp BP Pulse Ox 98.0 F 51 L 18 72/53 L 94 11/04/19 10:56 11/04/19 10:56 11/04/19 10:56 11/04/19 10:56 11/04/19 10:56 Oxygen Flow Rate (L/min) 2 Oxygen Delivery Method Room Air Weight: 386 lb 3.998 oz Body Mass Index (BMI) 62.3 Intake and Output for Last 24 Hours 11/02/19 11/03/19 11/04/19 23:59 23:59 23:59 Intake Total 1070.00 / 1670.00 950 / 950 Output Total 300 / 650 350 / 350 Balance 770.00 / 1020.00 600 / 600 General: Alert, Oriented x3, Cooperative Oral: Moist Mucosa Lungs: Normal air movement Cardiovascular: Regular rate Abdomen: Obese Extremities: Capillary Refill Less than 3 Seconds Skin: Ulcer/ Wound - Right abdomen ulcer Musculoskeletal: Tenderness Neurological: Cranial nerves II-XII grossly intact Psych/Mental Status: Normal Affect Microbiology Past 72 Hours 11/03/19 14:40 Wound - Abdominal Gram Stain - Final 11/03/19 14:40 Wound - Abdominal Wound Culture - Preliminary Gram negative yasmeen Laboratory Results 11/03/19 14:40: S.aureus Protein A PCR NEGATIVE, MRSA (PCR) Negative 11/03/19 15:40: WBC 11.4 H, RBC 3.00 L, Hgb 10.5 L, Hct 32.0 L, MCV 106.7 H, MCH 35.0 H, MCHC 32.8, RDW Std Deviation 55.5 H, RDW Coeff of Florina 14.3, Plt Count 216, MPV 9.5, ESR 81 H 11/03/19 15:40: Sodium 136, Potassium 5.6 H, Chloride 105, Carbon Dioxide 24.0, Anion Gap 7, BUN 60 H, Creatinine 2.53 H, Estim Creat Clear Calc 28.37, Est GFR (MDRD) Af Amer 34 L, Est GFR (MDRD) Non-Af 28 L, BUN/Creatinine Ratio 23.7 H, Glucose 104, Calcium 8.9, Total Bilirubin 0.80, AST 11 L, ALT 15 L, Alkaline Phosphatase 136 H, C-React Prot Ext Range 137.00 H, Total Protein 7.2, Albumin 2.8 L, Globulin 4.4 H, Albumin/Globulin Ratio 0.6 L, Prealbumin 14.9 L 11/03/19 16:45: PT 13.7, INR 1.1 11/04/19 05:46: WBC 9.4, RBC 2.94 L, Hgb 10.1 L, Hct 31.5 L, MCV 107.1 H, MCH 34.4 H, MCHC 32.1, RDW Std Deviation 56.8 H, RDW Coeff of Florina 14.4, Plt Count 214, MPV 9.9 11/04/19 05:46: Sodium Cancelled, Potassium Cancelled, Chloride Cancelled, Carbon Dioxide Cancelled, Anion Gap Cancelled, BUN Cancelled, Creatinine Cancelled, Estim Creat Clear Calc Cancelled, Est GFR (MDRD) Af Amer Cancelled, Est GFR (MDRD) Non-Af Cancelled, BUN/Creatinine Ratio Cancelled, Glucose Cancelled, Calcium Cancelled 11/04/19 07:05: Sodium 137, Potassium 5.6 H, Chloride 111 H, Carbon Dioxide 21.0, Anion Gap 5, BUN 62 H, Creatinine 2.75 H, Estim Creat Clear Calc 26.10, Est GFR (MDRD) Af Amer 31 L, Est GFR (MDRD) Non-Af 25 L, BUN/Creatinine Ratio 22.5 H, Glucose 90, Calcium 8.5 Current Medications Amiodarone HCl (Cordarone) 400 mg PO DAILY COUNTS INCLUDE 234 BEDS AT THE [facility] Bupropion HCl (Wellbutrin Tablets) 100 mg PO DAILY COUNTS INCLUDE 234 BEDS AT THE [facility] Carvedilol (Coreg) 6.25 mg PO BID COUNTS INCLUDE 234 BEDS AT THE [facility] Last Admin: 11/03/19 21:58 Dose: 6.25 mg Documented by: Cholecalciferol (Vitamin D (25mcg)) 3,000 unit PO DAILY COUNTS INCLUDE 234 BEDS AT THE [facility] Last Admin: 11/04/19 07:58 Dose: 3,000 unit Documented by: Cyanocobalamin (Vitamin B12) 1,000 mcg PO DAILY COUNTS INCLUDE 234 BEDS AT THE [facility] Last Admin: 11/04/19 07:57 Dose: 1,000 mcg Documented by: Diazepam (Valium) 5 mg PO 4X/DAY PRN PRN PRN Reason: SPASMS Docusate Sodium (Colace) 100 mg PO BID COUNTS INCLUDE 234 BEDS AT THE [facility] Last Admin: 11/04/19 07:57 Dose: Not Given Documented by: Furosemide (Lasix) 40 mg PO DAILY COUNTS INCLUDE 234 BEDS AT THE [facility] Last Admin: 11/04/19 07:57 Dose: 40 mg Documented by: Sodium Chloride () 1,000 mls @ 100 mls/hr IV .Q10H COUNTS INCLUDE 234 BEDS AT THE [facility] Last Infusion: 11/03/19 21:45 Dose: 60 mls/hr Documented by: Piperacillin Sod/Tazobactam (Sod 3.375 gm/ Sodium Chloride) 50 mls @ 12.5 mls/hr IV Q8 COUNTS INCLUDE 234 BEDS AT THE [facility] Last Infusion: 11/04/19 09:34 Dose: Infused Documented by: Sodium Chloride () 500 mls @ 999 mls/hr IV .Q31M ONE Stop: 11/04/19 11:55 Levothyroxine Sodium (Synthroid) 25 mcg PO DAILY@0600 COUNTS INCLUDE 234 BEDS AT THE [facility] Last Admin: 11/04/19 05:36 Dose: 25 mcg Documented by: Lorazepam (Ativan) 0.5 mg PO BID COUNTS INCLUDE 234 BEDS AT THE [facility] Last Admin: 11/03/19 21:57 Dose: 0.5 mg Documented by: Multivitamins/Minerals (Multivitamin With Minerals (Bkc)) 2 tablet PO DAILY@0800 COUNTS INCLUDE 234 BEDS AT THE [facility] Last Admin: 11/04/19 07:55 Dose: 2 tablet Documented by: Nitroglycerin (Nitrostat) 0.4 mg SUBLINGUAL Q5M PRN PRN Reason: CARDIAC/CHEST PAIN Nutritional Formula (Danish - Sophia Flavor) [facility] Ondansetron HCl (Zofran) 4 mg IV Q6H PRN PRN PRN Reason: NAUSEA Oxycodone HCl (Oxyir) 10 mg PO Q4H PRN PRN PRN Reason: Pain Score 6-10/10 Last Admin: 11/04/19 08:32 Dose: 10 mg Documented by: Promethazine HCl (Phenergan Tablet) 25 mg PO Q4H PRN PRN PRN Reason: NAUSEA/VOMITING Sacubitril/Valsartan (Entresto 97 Mg-103 Mg Tablet) 1 each PO BID COUNTS INCLUDE 234 BEDS AT THE [facility] Last Admin: 11/03/19 21:58 Dose: 1 each Documented by: Senna (Senokot) 1 tablet PO BID COUNTS INCLUDE 234 BEDS AT THE [facility] Last Admin: 11/04/19 07:57 Dose: 1 tablet Documented by: Sertraline HCl (Zoloft) 50 mg PO BID COUNTS INCLUDE 234 BEDS AT THE [facility] Last Admin: 11/03/19 21:58 Dose: 50 mg Documented by: Sodium Chloride () 10 - 40 ml IV UD PRN PRN Reason: SALINE FLUSH Last Admin: 11/03/19 19:40 Dose: 20 ml Documented by: Spironolactone (Aldactone) 25 mg PO BID COUNTS INCLUDE 234 BEDS AT THE [facility] Last Admin: 11/03/19 21:58 Dose: 25 mg Documented by: Tizanidine HCl (Zanaflex) 4 mg PO BID COUNTS INCLUDE 234 BEDS AT THE [facility] Last Admin: 11/03/19 21:57 Dose: 4 mg Documented by: Tolterodine Tartrate (Detrol La) 4 mg PO DAILY COUNTS INCLUDE 234 BEDS AT THE [facility] Last Admin: 11/04/19 07:57 Dose: 4 mg Documented by: Zolpidem Tartrate (Ambien (Generic)) 5 mg PO QHS COUNTS INCLUDE 234 BEDS AT THE [facility] Last Admin: 11/03/19 21:58 Dose: 5 mg Documented by: Medical Necessity - Tobacco Use Smoking Status: Never smoker Assessment/Plan All Active Problems (Last Reviewed 07/19/19 @ 22:[address] Anthony Pisano MD) Open wound, abdominal wall, lateral (Acute) Wound infection after surgery (Acute) Acute exacerbation of CHF (congestive heart failure) (Acute) 1. Massive abdominal panniculus with panniculitis. 2. Necrotizing soft tissue infection. 3. Recent weight loss. 4. Abdominal wall skin crease intertrigo. 5. Painful lymphedema lower abdominal wall. 6. Lumbar back pain. 7. History of laparoscopic ventral hernia repair with mesh. 8. History of DVT. 9. s/p surgical preparation right abdominal wall with excisional debridement skin, subcutaneous tissue, and fascia necrotizing soft tissue infection (731 cm2) and abdominal panniculectomy on 10/21/2019. Patient just got back in bed due to blood pressure dropping while up in chair. He is complaining of incisional discomfort. VAC in place. Erythema surrounding the wound. Cultures are gram negative rods. Continue Zosyn. Vancomycin stopped. ID consulted. Prealbumin 14.9. Encourage supplemental nutrition and increase protein intake. Patient is having difficulty taking care of himself at home. ECF evaluation in progress.
--- NOTE | 2019-11-04 11:43 | CON.PCM_ITS ---
Problem List (1) Wound infection after surgery Status: Acute (2) Open wound, abdominal wall, lateral Status: Acute (3) History of ventral hernia repair Status: Chronic Comment: with mesh in last 2 years at [facility] (4) Lumbar back pain Status: Chronic Comment: from weight of massive abdominal panniculus (5) Ventral hernia Status: Chronic Comment: laparoscopic repair 2 years ago with mesh (6) Lymphedema Status: Chronic Comment: painful lymphedema lower abdominal wall (7) Intertrigo Status: Chronic Comment: abdominal wall skin crease intertrigo (8) Recent weight loss Status: Chronic Comment: about 100 lbs (9) Panniculitis Status: Chronic (10) Abdominal panniculus, symptomatic Status: Chronic (11) Presence of implantable cardioverter-defibrillator (ICD) Status: Chronic (12) History of radiofrequency ablation (RFA) procedure for cardiac arrhythmia Status: Chronic Comment: 2007 @ [facility] per Dr. Lange, 2008 @ [facility] for WPW with success. 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 Status: Chronic (18) Rotator cuff tear Status: Chronic (19) COPD (chronic obstructive pulmonary disease) Status: Chronic (20) Anxiety and depression Status: Chronic (21) History of DVT (deep vein thrombosis) Status: Chronic (22) Diastolic heart failure Status: Chronic (23) TEX (obstructive sleep apnea) Status: Chronic (24) Hyperlipidemia Status: Chronic (25) Benign essential hypertension Status: Chronic (26) Rheumatoid arthritis Status: Chronic (27) dilated right ventricle Status: Chronic (28) Cardiomyopathy Status: Chronic (29) Super obesity Status: Chronic (30) Acute exacerbation of CHF (congestive heart failure) Status: Acute (31) WPW (Mpfwu-Zjigfbhnw-Wknsx syndrome) Status: Chronic (32) Atrial fibrillation Status: Chronic Reason for Consult Date of Consultation: 11/04/19 Reason for Consultation: Wound infection and hypotension History of Present Illness: The patient is a 59 year old M with multiple comorbidities including nonischemic cardiomyopathy EF 35% on last echo December 2018 was admitted from wound center for wound infection. Patient had excisional department of the skin, subcutaneous tissue and fascia necrotizing soft tissue infection and panniculectomy on 10/21/2019. After that patient had wound VAC and was sent home on cefadroxil. Patient complain of chills for few days. Because of morbid obesity body habitus, patient not able to take care of wound VAC and change of dressing. He said once while walking, he is wound dressing fell off. Complaining of pain around the wound area. There is also redness around the margin of the wound. In the morning today, his blood pressure dropped to 72/53, although patient does not feel dizzy, lightheaded, hypoxia. Patient also had instances of postoperative hypotension during previous admission. 500 mL normal saline IV bolus ordered. Patient is on IV vancomycin and Zosyn. Past Medical History Past Medical History (Chronic Problems): Chronic Problems (Last Reviewed 07/19/19 @ 22:[address] Anthony Pisano MD) History of ventral hernia repair (Chronic) with mesh in last 2 years at [facility] Lumbar back pain (Chronic) from weight of massive abdominal panniculus Ventral hernia (Chronic) laparoscopic repair 2 years ago with mesh Lymphedema (Chronic) painful lymphedema lower abdominal wall Intertrigo (Chronic) abdominal wall skin crease intertrigo Recent weight loss (Chronic) about 100 lbs Panniculitis (Chronic) Abdominal panniculus, symptomatic (Chronic) Presence of implantable cardioverter-defibrillator (ICD) (Chronic) History of radiofrequency ablation (RFA) procedure for cardiac arrhythmia (Chronic) 2007 @ [facility] per Dr. Lange, 2008 @ [facility] for WPW with success. 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) Rotator cuff tear (Chronic) COPD (chronic obstructive pulmonary disease) (Chronic) Anxiety and depression (Chronic) History of DVT (deep vein thrombosis) (Chronic) Diastolic heart failure (Chronic) TEX (obstructive sleep apnea) (Chronic) Hyperlipidemia (Chronic) Benign essential hypertension (Chronic) Rheumatoid arthritis (Chronic) dilated right ventricle (Chronic) Cardiomyopathy (Chronic) Super obesity (Chronic) WPW (Qcbhp-Sitayinfy-Jwoda syndrome) (Chronic) Atrial fibrillation (Chronic) Medical History: Medical History (Last Reviewed 07/19/19 @ 22:[address] Anthony Pisano MD) Lumbar back pain (Chronic) M54.5 from weight of massive abdominal panniculus Ventral hernia (Chronic) K43.9 laparoscopic repair 2 years ago with mesh Lymphedema (Chronic) I89.0 painful lymphedema lower abdominal wall Intertrigo (Chronic) L30.4 abdominal wall skin crease intertrigo Recent weight loss (Chronic) R63.4 about 100 lbs Abdominal panniculus, symptomatic (Chronic) E65 COPD (chronic obstructive pulmonary disease) (Chronic) J44.9 History of DVT (deep vein thrombosis) (Chronic) Z86.718 Diastolic heart failure (Chronic) I50.30 TEX (obstructive sleep apnea) (Chronic) G47.33 Hyperlipidemia (Chronic) E78.5 Benign essential hypertension (Chronic) I10 Rheumatoid arthritis (Chronic) M06.9 Cardiomyopathy (Chronic) I42.9 Super obesity (Chronic) E66.9 Acute exacerbation of CHF (congestive heart failure) (Acute) I50.9 WPW (Osrss-Wfilghzvw-Okoxg syndrome) (Chronic) I45.6 Atrial fibrillation (Chronic) I48.91 Arthritis M19.90 Cyst of breast N60.09 History of ulceration Z87.898 Osteoarthritis M19.90 Pancreatitis K85.90 Jkchg-Gzukahrya-Wcmfu (WPW) syndrome I45.6 Allergies latex Allergy (Verified 08/25/19 06:54) Rash warfarin sodium [From Coumadin] Adverse Reaction (Verified 09/29/19 06:35) Other caused 2 holes in lungs and chest, advised to never take again Home Medications: Ambulatory Orders Medication Instructions Recorded Bupropion HCl 100 mg PO DAILY 05/02/14 Nitroglycerin (INPATIENT USE) 0.4 mg SUBLINGUAL Q5M PRN 07/17/14 [Nitrostat] Cholecalciferol (Vitamin D3) 3,000 unit PO DAILY 05/08/18 [Vitamin D3] Cyanocobalamin (Vitamin B-12) 1,000 mcg PO DAILY 05/08/18 [Vitamin B-12] Lorazepam [Ativan] 0.5 mg PO BID 05/08/18 Multivitamin with Minerals 2 ea PO DAILY 05/08/18 [Multiple Vitamin] Sacubitril/Valsartan 97-103 mg 1 tab PO BID 05/08/18 [Entresto 97 mg-103 mg Tablet] Amiodarone HCl 400 mg PO DAILY 11/05/18 Sertraline HCl [Zoloft] 50 mg PO BID 11/05/18 Furosemide [Lasix] 40 mg PO DAILY 01/27/19 carvedilol 12.5 mg tablet 6.25 mg PO BID tab 05/22/19 levothyroxine 25 mcg tablet 25 mcg PO DAILY 05/22/19 oxybutynin chloride 15 mg 15 mg PO DAILY 05/22/19 tablet,extended release 24 hr spironolactone 25 mg tablet 25 mg PO BID tab 05/22/19 tizanidine 4 mg tablet 4 mg PO BID 05/22/19 Senna Plus Tablet 8.6 mg PO BID 10/20/19 Diazepam [Valium] 5 mg PO 4X/DAY PRN PRN #30 tab 10/23/19 Docusate Sodium [Colace] 100 mg PO BID #0 cap 10/23/19 Zolpidem Tartrate [Ambien] 5 mg PO QHS tab 10/23/19 Surgical History: Surgical History (Last Reviewed 07/19/19 @ 22:[address] Anthony Pisano MD) History of ventral hernia repair (Chronic) Z98.890, Z87.19 with mesh in last 2 years at [facility] Presence of implantable cardioverter-defibrillator (ICD) (Chronic) Z95.810 History of radiofrequency ablation (RFA) procedure for cardiac arrhythmia (Chronic) Z98.890 2007 @ [facility] per Dr. Lange, 2009 @ [facility] for WPW with success. History of left heart catheterization (Chronic) Onset Date: 11/08/18 Z98.890 History of cardiac radiofrequency ablation Z98.890 [id number] History of cholecystectomy Z90.49 History of gastric surgery Z98.890 Surgical History: cholecystectomy, herniorrhaphy, - - Cardiac ablation x 2, Defib placement, Cholecystectomy, LLE surgery s/p trauma w/ hardware removal later, gastric sleeve surgery Psychiatric History: Anxiety, Depression Smoking Status: Never smoker - *Family History Maternal Family History: Family History (Last Reviewed 07/19/19 @ 22:[address] Anthony Pisano MD) Sister Arthritis Brother Psychiatric care History Items: Heart Disease, Hypertension Paternal Family History: Family History (Last Reviewed 07/19/19 @ 22:[address] Anthony Pisano MD) Sister Arthritis Brother Psychiatric care History Items: Heart Disease, Hypertension Review of Systems Constitutional: Reports: Chills, Fever, Malaise, Weakness HEENT: Denies: Head Aches, Sinus Congestion, Sinus Drainage Cardiovascular: Denies: Chest Pain, Palpitations Respiratory: Denies: Cough, Shortness of breath at rest, Sputum production Gastrointestinal: Reports: Abdominal Pain, Nausea, -. Denies: Vomiting Genitourinary: Denies: Dysuria, Frequency Musculoskeletal: Denies: Joint Pain, Joint Tenderness Skin: Reports: Rash - Redness and swelling around the wound margin., Wounds, - Neurological: Denies: Numbness, Tingling, Focal weakness Psychiatric: Denies: Anxiety, Depression, Homicidal Ideations, Suicidal Ideations Hematologic/ Lymphatic: Denies: Easy Bruising, Easy Bleeding Patient Problems: Active and Suspected Problems (Last Reviewed 07/19/19 @ 22:[address] Anthony Pisano MD) Open wound, abdominal wall, lateral (Acute) Wound infection after surgery (Acute) Objective: Physical exam General: Alert, Oriented x3, Cooperative HEENT: Atraumatic, PERRLA, EOMI, Normocephalic Oral: No Gingival or Mucosal Lesions/ Ulcerations Neck: Supple, No JVD, Negative Carotid Bruits Lungs: Air entry diminished in bilateral lung bases. No crepitation/rhonchi Cardiovascular: Regular rate, Regular Rhythm, Normal S1, Normal S2, pansystolic murmur over left lower sternal border Abdomen: Tenderness around the lower abdominal wall around the wound. Bowel Sounds Present, Soft, large panniculus of fat around pelvic area. : No renal angle tenderness. No suprapubic tenderness. Extremities: Mild bilateral lower leg edema, Capillary Refill Less than 3 Seconds Skin: BIG area in the lower abdominal wall from left to right with wound VAC. There is tenderness, redness along the wound margin. Musculoskeletal: No Tenderness to Palpation of Joints or Extremities. Neurological: Cranial nerves II-XII grossly intact, Deep Tendon Reflexes 2+/4 and Symmetrical, Neuro grossly intact Psych/Mental Status: Normal Affect, Appropriate. - Physical Exam Vitals/I&O's: Vital Signs Temp Pulse Resp BP Pulse Ox 98.0 F 51 L 18 72/53 L 94 11/04/19 10:56 11/04/19 10:56 11/04/19 10:56 11/04/19 10:56 11/04/19 10:56 Oxygen Flow Rate (L/min) 2 Oxygen Delivery Method Room Air Weight: 386 lb 3.998 oz Body Mass Index (BMI) 62.3 Intake and Output for Last 24 Hours 11/02/19 11/03/19 11/04/19 23:59 23:59 23:59 Intake Total 1070.00 / 1670.00 950 / 950 Output Total 300 / 650 350 / 350 Balance 770.00 / 1020.00 600 / 600 Microbiology Past 72 Hours 11/03/19 14:40 Wound - Abdominal Gram Stain - Final 11/03/19 14:40 Wound - Abdominal Wound Culture - Preliminary Gram negative yasmeen Laboratory Results 11/03/19 14:40: S.aureus Protein A PCR NEGATIVE, MRSA (PCR) Negative 11/03/19 15:40: WBC 11.4 H, RBC 3.00 L, Hgb 10.5 L, Hct 32.0 L, MCV 106.7 H, MCH 35.0 H, MCHC 32.8, RDW Std Deviation 55.5 H, RDW Coeff of Florina 14.3, Plt Count 216, MPV 9.5, ESR 81 H 11/03/19 15:40: Sodium 136, Potassium 5.6 H, Chloride 105, Carbon Dioxide 24.0, Anion Gap 7, BUN 60 H, Creatinine 2.53 H, Estim Creat Clear Calc 28.37, Est GFR (MDRD) Af Amer 34 L, Est GFR (MDRD) Non-Af 28 L, BUN/Creatinine Ratio 23.7 H, Glucose 104, Calcium 8.9, Total Bilirubin 0.80, AST 11 L, ALT 15 L, Alkaline Phosphatase 136 H, C-React Prot Ext Range 137.00 H, Total Protein 7.2, Albumin 2.8 L, Globulin 4.4 H, Albumin/Globulin Ratio 0.6 L, Prealbumin 14.9 L 11/03/19 16:45: PT 13.7, INR 1.1 11/04/19 05:46: WBC 9.4, RBC 2.94 L, Hgb 10.1 L, Hct 31.5 L, MCV 107.1 H, MCH 34.4 H, MCHC 32.1, RDW Std Deviation 56.8 H, RDW Coeff of Florina 14.4, Plt Count 214, MPV 9.9 11/04/19 05:46: Sodium Cancelled, Potassium Cancelled, Chloride Cancelled, Carbon Dioxide Cancelled, Anion Gap Cancelled, BUN Cancelled, Creatinine Cancelled, Estim Creat Clear Calc Cancelled, Est GFR (MDRD) Af Amer Cancelled, Est GFR (MDRD) Non-Af Cancelled, BUN/Creatinine Ratio Cancelled, Glucose Cancelled, Calcium Cancelled 11/04/19 07:05: Sodium 137, Potassium 5.6 H, Chloride 111 H, Carbon Dioxide 21.0, Anion Gap 5, BUN 62 H, Creatinine 2.75 H, Estim Creat Clear Calc 26.10, Est GFR (MDRD) Af Amer 31 L, Est GFR (MDRD) Non-Af 25 L, BUN/Creatinine Ratio 22.5 H, Glucose 90, Calcium 8.5 Current Medications Amiodarone HCl (Cordarone) 400 mg PO DAILY [facility] Last Admin: 11/04/19 11:39 Dose: Not Given Documented by: Bupropion HCl (Wellbutrin Tablets) 100 mg PO DAILY [facility] Last Admin: 11/04/19 11:40 Dose: Not Given Documented by: Carvedilol (Coreg) 6.25 mg PO BID [facility] Last Admin: 11/04/19 11:40 Dose: Not Given Documented by: Cholecalciferol (Vitamin D (25mcg)) 3,000 unit PO DAILY [facility] Last Admin: 11/04/19 07:58 Dose: 3,000 unit Documented by: Cyanocobalamin (Vitamin B12) 1,000 mcg PO DAILY [facility] Last Admin: 11/04/19 07:57 Dose: 1,000 mcg Documented by: Diazepam (Valium) 5 mg PO 4X/DAY PRN PRN PRN Reason: SPASMS Docusate Sodium (Colace) 100 mg PO BID [facility] Last Admin: 11/04/19 07:57 Dose: Not Given Documented by: Furosemide (Lasix) 40 mg PO DAILY [facility] Last Admin: 11/04/19 07:57 Dose: 40 mg Documented by: Sodium Chloride () 1,000 mls @ 100 mls/hr IV .Q10H [facility] Last Infusion: 11/03/19 21:45 Dose: 60 mls/hr Documented by: Piperacillin Sod/Tazobactam (Sod 3.375 gm/ Sodium Chloride) 50 mls @ 12.5 mls/hr IV Q8 [facility] Last Infusion: 11/04/19 09:34 Dose: Infused Documented by: Sodium Chloride () 500 mls @ 999 mls/hr IV .Q31M ONE Stop: 11/04/19 11:55 Levothyroxine Sodium (Synthroid) 25 mcg PO DAILY@0600 [facility] Last Admin: 11/04/19 05:36 Dose: 25 mcg Documented by: Lorazepam (Ativan) 0.5 mg PO BID [facility] Last Admin: 11/04/19 11:39 Dose: Not Given Documented by: Multivitamins/Minerals (Multivitamin With Minerals (Bkc)) 2 tablet PO DAILY@0800 [facility] Last Admin: 11/04/19 07:55 Dose: 2 tablet Documented by: Nitroglycerin (Nitrostat) 0.4 mg SUBLINGUAL Q5M PRN PRN Reason: CARDIAC/CHEST PAIN Nutritional Formula (Danish - Shiloh Flavor) [facility] Ondansetron HCl (Zofran) 4 mg IV Q6H PRN PRN PRN Reason: NAUSEA Oxycodone HCl (Oxyir) 10 mg PO Q4H PRN PRN PRN Reason: Pain Score 6-10/10 Last Admin: 11/04/19 08:32 Dose: 10 mg Documented by: Promethazine HCl (Phenergan Tablet) 25 mg PO Q4H PRN PRN PRN Reason: NAUSEA/VOMITING Sacubitril/Valsartan (Entresto 97 Mg-103 Mg Tablet) 1 each PO BID [facility] Last Admin: 11/04/19 11:40 Dose: Not Given Documented by: Senna (Senokot) 1 tablet PO BID [facility] Last Admin: 11/04/19 07:57 Dose: 1 tablet Documented by: Sertraline HCl (Zoloft) 50 mg PO BID [facility] Last Admin: 11/04/19 11:40 Dose: Not Given Documented by: Sodium Chloride () 10 - 40 ml IV UD PRN PRN Reason: SALINE FLUSH Last Admin: 11/03/19 19:40 Dose: 20 ml Documented by: Spironolactone (Aldactone) 25 mg PO BID [facility] Last Admin: 11/04/19 11:39 Dose: Not Given Documented by: Tizanidine HCl (Zanaflex) 4 mg PO BID [facility] Last Admin: 11/04/19 11:40 Dose: Not Given Documented by: Tolterodine Tartrate (Detrol La) 4 mg PO DAILY [facility] Last Admin: 11/04/19 07:57 Dose: 4 mg Documented by: Zolpidem Tartrate (Ambien (Generic)) 5 mg PO QHS [facility] Last Admin: 11/03/19 21:58 Dose: 5 mg Documented by: Assessment/Plan All Active Problems (Last Reviewed 07/19/19 @ 22:[address] Anthony Pisano MD) Open wound, abdominal wall, lateral (Acute) Wound infection after surgery (Acute) Acute exacerbation of CHF (congestive heart failure) (Acute) 59-year-old question gentleman with multiple comorbidities admitted with wound infection with redness, pain and tenderness. 1. Lower abdominal wall wound infection after recent debridement of skin, subcutaneous tissue and fascia necrotizing tissue and panniculectomy on 10/21/2019. Initial Gram stain from wound culture showing gram-negative yasmeen. Currently patient is on IV vancomycin and Zosyn. Patient has right arm PICC line, probably will need prolonged antibiotic. Will request ID consult. 2. Hypotension with history of nonischemic cardiomyopathy, chronic systolic heart failure with EF 35% status post AICD: 2D echo 11/06/2018 reported severely dilated LV, EF 35%, moderate to severe global hypokinesis LV, mild TBI, RVSP 33 mmHg. 500 mL normal saline bolus and 900 mils per hour. Hold Entresto, Coreg, aspirin, Lasix, Aldactone as patient is having hypotension. Holding parameters for medications instructed. Patient did not had a recent AICD firing. Last heart cath, [facility] on 10/2018 reported EF 15% but normal coronaries. 3. 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 Patient not on anticoagulation secondary to history of pulmonary hemorrhage and GI bleed. 4. COPD: Continue DuoNeb as needed for shortness of breath or wheezing as significant arrhythmia history therefore avoid excessive aerosols. 5. Hypothyroidism: Continue home synthroid regimen. 6. Anxiety and depression: Patient's home medication Zoloft, bupropion but currently on hold for hypotension. 7. History of DVT: No longer anticoagulated secondary to history of pulmonary hemorrhage and GI bleed. 8. TEX: BiPAP nightly. 9. Ventral hernia history status post with repair 10 DVT prophylaxis: As per admitting team. recommed low dose lovenox 30 mg sq daily as per creatinine clearance and also history of GI bleed Inpatient E&M: [id number] Init Hosp L3
[2019-11-04] MEDS: 0.9% Normal Saline 1,000 ML 60 ML IV ×2 (12:36→23:06)
[2019-11-04] MEDS: Enoxaparin 30 MG/0.3 ML Syringe SC (12:47)
--- NOTE | 2019-11-04 12:57 | CASEMGMT ---
Addendum entered by Mary Murillo 11/04/19 14:15: SW received call from CONCHA Aguilar CM through [facility] Camryn requesting call back ([phone]). SW placed call to Camryn and updated her on pt's admission and plan for SNF at discharge. Original Note: Social Work Note SW received update that pt is agreeable to SNF. SW in to speak with pt. SW introduced self and role at [facility]. Pt is alert and orientated x3. Pt confirms that he would like to go to SNF. SW educated pt on SNF that accept pt's insurance. Pt agreeable to referral being sent to [facility]. SW placed a call to [facility] and provided referral to Anette in admissions. SW faxed referral. Charge Nurse updated that pt will need COVID test. Plan: [facility] pending acceptance and pre-cert Mary Murillo ASSISTANT AUTO CENTER MANAGER, DESIGN SPECIALIST
--- NOTE | 2019-11-04 13:21 | CHAPLAIN ---
Type of Pastoral Visit _x__ Initial Visit ___ Follow-up Visit ___ On-call Visit ___ General Patient Visit ___ Spiritual Assessment ___ Family Conference ___ Bereavement ___ Rapid Response ___ Code Blue ___ Other (describe below) Pastoral Care Referral From _x__ Patient ___ Family ___ Nurse ___ Physician ___ Order Manager ___ Academic Affairs Coordinator ___ Other (describe below) Sacrament/Intervention _x__ Active listening ___ Anointing ___ Mandaen ___ Bereavement ___ Communion _x__ Shahida exploration ___ _x__ Life review _x__ Prayer ___ Reconciliation ___ Sacrament of Sick _x__ Supportive presence ___ Wedding ___ Other (describe below) Pastoral Comments
[2019-11-04 13:30] LABS: Lactic Acid 0.9 mmol/L (0.4-1.9)
--- NOTE | 2019-11-04 15:32 | CASEMGMT ---
Social Work Note SW received message from Anette at [facility] stating they are able to accept pt and have received pre-cert. BEATRICE spoke with wound nurse, SNF will need to order new wound vac for pt. BEATRICE reviewed notes, it appears ID has been consulted so SW will need to confirm antibiotics for pt before pt is able to discharge to SNF. BEATRICE updated pt on acceptance to [facility]. BEATRICE placed a call to Anette at [facility] and left message that [facility] will need to order wound vac and also updated Anette that this worker is waiting for confirmation on antibiotics for pt, so discharge will likely be tomorrow. Plan: [facility], likely tomorrow Mary Murillo CASH TELLER, NEWSROOM INTERN
[2019-11-04] MEDS: Acetaminophen 325 MG Tablet 650 MG PO (20:39)
[2019-11-04] MEDS: tiZANidine HCl 2 MG Tablet 4 MG PO (22:11)
[2019-11-04] MEDS: Sertraline 50 MG Tablet PO (22:11)
[2019-11-04] MEDS: Zolpidem Tartrate 5 MG Tablet PO (22:15)
[2019-11-05] MEDS: Nystatin Powder 15gm Bottle 1 APPLIC TOPICAL ×3 (02:25→12:59)
[2019-11-05 04:36] VITALS: BP 94/42; PULSE 59; RESP 18; TEMP 36.5; O2SAT 96
[2019-11-05] MEDS: Acetaminophen 325 MG Tablet 650 MG PO ×3 (04:46→17:35)
[2019-11-05] MEDS: Levothyroxine 25 MCG TABLET PO (04:47)
[2019-11-05] MEDS: Juven (unflavored) Packet 1 PACKET PO ×2 (08:59→17:34)
[2019-11-05] MEDS: Multivitamins,Ther W-Minerals Tablet 2 TABLET PO (08:59)
[2019-11-05 09:04] LABS: Absolute Lymphocyte Count 0.79 X10^3/uL (0.83-4.51); Absolute Neutrophil Count 5.7 X10^3/uL (2.0-7.7); Basophil# 0.02 X10^3/uL; Basophil% 0.3 % (0-1); Eosinophil# 0.33 X10^3/uL; Eosinophils% 4.2 % (0-5); Hematocrit 28.9 % (40-54); Hemoglobin 9.3 g/dL (13.0-16.5); Lymphocyte # 0.79 X10^3/ul (4.0); Lymphocyte % 10.1 % (19-41); Mean Corp Hgb Conc 32.2 g/dL (32-36); Mean Corpuscular Hgb 34.8 pg (27.0-32.0); Mean Corpuscular Volume 108.2 fL (80-94); Mean Platelet Vol. 9.5 fl (6.2-12.0); Monocyte# 0.96 X10^3/uL; Monocyte% 12.2 % (0-10); NRBC Flagged by Analyzer 0 % (0-5); Neutrophil # 5.71 X10^3/uL (2.7-7.7); Neutrophil % 72.8 % (47-70); Platelet Count 191 K/mm3 (150-450); RBC Distribution Width CV 14.3 % (11.6-14.6); RBC Distribution Width SD 55.8 fl (35.1-43.9); Red Blood Count 2.67 M/mm3 (4.6-6.2); White Blood Count 7.8 K/mm3 (4.4-11.0)
[2019-11-05 09:11] VITALS: BP 82/65; PULSE 52; RESP 18; TEMP 36.5; O2SAT 100
[2019-11-05 09:18] LABS: Anion Gap 6 (5-15); BUN 61 mg/dL (7-18); BUN/Creat Ratio 23.3 RATIO (10-20); Calcium,Total 8.6 mg/dL (8.5-10.1); Chloride 110 mmol/L (98-107); Creatinine, Serum 2.62 mg/dL (0.70-1.30); EST Glomerular Filtration Rate 27 mL/min (>60); Est Glom Filt Rate - Afr Amer 32 mL/min (>60); Glucose 88 mg/dL (74-106); Potassium 5.5 mmol/L (3.5-5.1); Sodium Level 140 mmol/L (136-145)
[2019-11-05] MEDS: Enoxaparin 30 MG/0.3 ML Syringe SC (09:24)
[2019-11-05] MEDS: Docusate Sodium 100 MG Capsule PO (09:24)
[2019-11-05] MEDS: Tolterodine Tartrate 4 MG CAP.SA PO (09:25)
[2019-11-05] MEDS: Senna Tablet 1 TABLET PO (09:26)
[2019-11-05] MEDS: Cyanocobalamin 500 MCG Tablet 1000 MCG PO (09:26)
[2019-11-05] MEDS: tiZANidine HCl 2 MG Tablet 4 MG PO (09:27)
[2019-11-05] MEDS: Sertraline 50 MG Tablet PO (09:27)
[2019-11-05] MEDS: buPROPion 100 MG Tablet PO (09:27)
[2019-11-05] MEDS: 0.9% Normal Saline 1,000 ML 100 ML IV (09:39)
--- NOTE | 2019-11-05 10:57 | CASEMGMT ---
Social Work Note SW updated that once ID see's pt and confirms antibiotics, pt can discharge to [facility]. BEATRICE placed a call to [facility] and updated Anette that pt will likely discharge later today. Anette states understanding, states [facility] is ready for pt whenever. Plan: [facility] skilled, likely discharge today Mary Murillo PHYSICIAN RECRUITER, PAINTER AND PAPERHANGER APPRENTICE
--- NOTE | 2019-11-05 11:37 | PCM.PN.HOSP ---
Patient Problems: Active and Suspected Problems (Last Reviewed 07/19/19 @ 22:[address] Anthony Pisano MD) Open wound, abdominal wall, lateral (Acute) Wound infection after surgery (Acute) Reason for Visit: Right abdominal wall wound infection. Subjective: Abdominal pain, abdominal wall edema has improved. No fever. Blood pressure is on the lower range at patient's baseline blood pressure is about 100 systolic. No objective signs of hypotension including dizziness, lightheadedness, headache or shortness of breath Physical exam General: Alert, Oriented x3, Cooperative HEENT: Atraumatic, PERRLA, EOMI, Normocephalic Oral: No Gingival or Mucosal Lesions/ Ulcerations Neck: Supple, No JVD, Negative Carotid Bruits Lungs: Air entry diminished in bilateral lung bases. No crepitation/rhonchi Cardiovascular: Regular rate, Regular Rhythm, Normal S1, Normal S2, pansystolic murmur over left lower sternal border Abdomen: Mild tenderness around the lower abdominal wall around the wound. Bowel Sounds Present, Soft, large panniculus of fat around pelvic area. : No renal angle tenderness. No suprapubic tenderness. Bilateral intertriginous yeast infection. Extremities: Mild bilateral lower leg edema, Capillary Refill Less than 3 Seconds Skin: BIG area in the lower abdominal wall from left to right with wound VAC. There is tenderness, redness along the wound margin. Musculoskeletal: No Tenderness to Palpation of Joints or Extremities. Neurological: Cranial nerves II-XII grossly intact, Deep Tendon Reflexes 2+/4 and Symmetrical, Neuro grossly intact Psych/Mental Status: Normal Affect, Appropriate. Objective: No pain and abdominal wall swelling is much improved. No fever Vitals/I&O's: Vital Signs Temp Pulse Resp BP Pulse Ox 97.7 F L 52 L 18 82/65 L 100 11/05/19 09:11 11/05/19 09:11 11/05/19 09:11 11/05/19 09:11 11/05/19 09:11 Oxygen Flow Rate (L/min) 2 Oxygen Delivery Method Room Air Weight: 386 lb 3.998 oz Body Mass Index (BMI) 62.3 Intake and Output for Last 24 Hours 11/03/19 11/04/19 11/05/19 23:59 23:59 23:59 Intake Total 1070.00 / 1670.00 4400 / 4850 2100 / 2100 Output Total 300 / 650 1050 / 1650 850 / 850 Balance 770.00 / 1020.00 3350 / 3200 1250 / 1250 Microbiology Past 72 Hours 11/03/19 14:40 Wound - Abdominal Gram Stain - Final 11/03/19 14:40 Wound - Abdominal Wound Culture - Preliminary Gram negative yasmeen GPC Poss Enterococcus sp Gram negative yasmeen#2 Laboratory Results 11/04/19 12:40: Lactic Acid 0.9 11/05/19 08:51: Sodium 140, Potassium 5.5 H, Chloride 110 H, Carbon Dioxide 24.0, Anion Gap 6, BUN 61 H, Creatinine 2.62 H, Estim Creat Clear Calc 27.40, Est GFR (MDRD) Af Amer 32 L, Est GFR (MDRD) Non-Af 27 L, BUN/Creatinine Ratio 23.3 H, Glucose 88, Calcium 8.6, Magnesium 2.0 11/05/19 08:51: WBC 7.8, RBC 2.67 L, Hgb 9.3 L, Hct 28.9 L, MCV 108.2 H, MCH 34.8 H, MCHC 32.2, RDW Std Deviation 55.8 H, RDW Coeff of Florina 14.3, Plt Count 191, MPV 9.5, Immature Gran % (Auto) 0.400, Neut % (Auto) 72.8 H, Lymph % (Auto) 10.1 L, [place] % (Auto) 12.2 H, Eos % (Auto) 4.2, Baso % (Auto) 0.3, Absolute Neuts (auto) 5.7, Absolute Lymphs (auto) 0.79 L, Nucleated RBC % 0 11/05/19 11:00: COVID-19 ([facility]) Pending Current Medications Acetaminophen (Tylenol) 650 mg PO Q4H PRN PRN PRN Reason: fever, pain -01/02 Last Admin: 11/05/19 09:34 Dose: 650 mg Documented by: Albuterol/Ipratropium (Duoneb) 3 ml INHALATION Q4H PRN PRN Reason: sob Amiodarone HCl (Cordarone) 400 mg PO DAILY [facility] Last Admin: 11/05/19 09:24 Dose: Not Given Documented by: Bupropion HCl (Wellbutrin Tablets) 100 mg PO DAILY [facility] Last Admin: 11/05/19 09:27 Dose: 100 mg Documented by: Carvedilol (Coreg) 6.25 mg PO BID [facility] Last Admin: 11/05/19 09:24 Dose: Not Given Documented by: Cholecalciferol (Vitamin D (25mcg)) 3,000 unit PO DAILY [facility] Last Admin: 11/05/19 09:26 Dose: 3,000 unit Documented by: Cyanocobalamin (Vitamin B12) 1,000 mcg PO DAILY [facility] Last Admin: 11/05/19 09:26 Dose: 1,000 mcg Documented by: Diazepam (Valium) 5 mg PO 4X/DAY PRN PRN PRN Reason: SPASMS Docusate Sodium (Colace) 100 mg PO BID [facility] Last Admin: 11/05/19 09:24 Dose: 100 mg Documented by: Enoxaparin Sodium (Lovenox) 40 mg SC DAILY [facility] Furosemide (Lasix) 40 mg PO DAILY [facility] Last Admin: 11/05/19 09:25 Dose: Not Given Documented by: Sodium Chloride () 1,000 mls @ 100 mls/hr IV .Q10H [facility] Last Admin: 11/05/19 09:39 Dose: 100 mls/hr Documented by: Piperacillin Sod/Tazobactam (Sod 3.375 gm/ Sodium Chloride) 50 mls @ 12.5 mls/hr IV Q8 [facility] Last Infusion: 11/05/19 09:20 Dose: Infused Documented by: Levothyroxine Sodium (Synthroid) 25 mcg PO DAILY@0600 [facility] Last Admin: 11/05/19 04:47 Dose: 25 mcg Documented by: Lorazepam (Ativan) 0.5 mg PO BID [facility] Last Admin: 11/05/19 09:23 Dose: Not Given Documented by: Multivitamins/Minerals (Multivitamin With Minerals (Bkc)) 2 tablet PO DAILY@0800 [facility] Last Admin: 11/05/19 08:59 Dose: 2 tablet Documented by: Nitroglycerin (Nitrostat) 0.4 mg SUBLINGUAL Q5M PRN PRN Reason: CARDIAC/CHEST PAIN Nystatin (Mycostatin Powder) 1 applic TOPICAL TID [facility]; Protocol Last Admin: 11/05/19 05:13 Dose: 1 applic Documented by: Ondansetron HCl (Zofran) 4 mg IV Q6H PRN PRN PRN Reason: NAUSEA Oxycodone HCl (Oxyir) 10 mg PO Q4H PRN PRN PRN Reason: Pain Score 6-10/10 Last Admin: 11/04/19 08:32 Dose: 10 mg Documented by: Promethazine HCl (Phenergan Tablet) 25 mg PO Q4H PRN PRN PRN Reason: NAUSEA/VOMITING Sacubitril/Valsartan (Entresto 97 Mg-103 Mg Tablet) 1 each PO BID [facility] Last Admin: 11/05/19 09:25 Dose: Not Given Documented by: Senna (Senokot) 1 tablet PO BID [facility] Last Admin: 11/05/19 09:26 Dose: 1 tablet Documented by: Sertraline HCl (Zoloft) 50 mg PO BID [facility] Last Admin: 11/05/19 09:27 Dose: 50 mg Documented by: Sodium Chloride () 10 - 40 ml IV UD PRN PRN Reason: SALINE FLUSH Last Admin: 11/03/19 19:40 Dose: 20 ml Documented by: Spironolactone (Aldactone) 25 mg PO BID [facility] Last Admin: 11/05/19 09:23 Dose: Not Given Documented by: Tizanidine HCl (Zanaflex) 4 mg PO BID [facility] Last Admin: 11/05/19 09:27 Dose: 4 mg Documented by: Tolterodine Tartrate (Detrol La) 4 mg PO DAILY [facility] Last Admin: 11/05/19 09:25 Dose: 4 mg Documented by: Zolpidem Tartrate (Ambien (Generic)) 5 mg PO QHS [facility] Last Admin: 11/04/19 22:15 Dose: 5 mg Documented by: STROKE Vital Signs/Narrative: Vital Signs Temp Pulse Resp BP Pulse Ox 11/05/19 09:11 97.7 F L 52 L 18 82/65 L 100 Medical Necessity - Tobacco Use Smoking Status: Never smoker Assessment/Plan All Active Problems (Last Reviewed 07/19/19 @ 22:[address] Anthony Pisano MD) Open wound, abdominal wall, lateral (Acute) Wound infection after surgery (Acute) Acute exacerbation of CHF (congestive heart failure) (Acute) 59-year-old question gentleman with multiple comorbidities admitted with wound infection with redness, pain and tenderness. 1. Lower abdominal wall wound infection after recent debridement of skin, subcutaneous tissue and fascia necrotizing tissue and panniculectomy on 10/21/2019. Initial Gram stain from wound culture showing gram-negative yasmeen. Currently patient is on IV vancomycin and Zosyn. Patient has right arm PICC line, probably will need prolonged antibiotic. 11/04: Preliminary Gram stain of wound culture shows gram-negative yasmeen, GPC possible enterococcus and gram-negative yasmeen #2. Full culture pending. Discussed with ID. 2. Hypotension with history of nonischemic cardiomyopathy, chronic systolic heart failure with EF 35% status post AICD: 2D echo 11/06/2018 reported severely dilated LV, EF 35%, moderate to severe global hypokinesis LV, mild TBI, RVSP 33 mmHg. 500 mL normal saline bolus and 100 mils per hour. Hold Entresto, Coreg, aspirin, Lasix, Aldactone as patient is having hypotension. Holding parameters for medications instructed. Patient did not had a recent AICD firing. Last heart cath, [facility] on 10/2018 reported EF 15% but normal coronaries. 11/04: Patient was given IV fluid with bolus yesterday but blood pressure still low. No objective signs of hypotension. Patient had hypotension during previous admission recently. 3. 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 Patient not on anticoagulation secondary to history of pulmonary hemorrhage and GI bleed. 4. COPD: Continue DuoNeb as needed for shortness of breath or wheezing as significant arrhythmia history therefore avoid excessive aerosols. 5. Hypothyroidism: Continue home synthroid regimen. 6. Anxiety and depression: Patient's home medication Zoloft, bupropion but currently on hold for hypotension. 7. History of DVT: No longer anticoagulated secondary to history of pulmonary hemorrhage and GI bleed. 8. TEX: BiPAP nightly. 9. Ventral hernia history status post with repair 10 DVT prophylaxis: As per admitting team. recommed low dose lovenox 30 mg sq daily as per creatinine clearance and also history of GI bleed Inpatient E&M: [id number] [facility] Hosp L2
--- NOTE | 2019-11-05 12:45 | PCM.PN.SRG ---
Patient Problems: Active and Suspected Problems (Last Reviewed 07/19/19 @ 22:[address] Anthony Pisano MD) Open wound, abdominal wall, lateral (Acute) Subjective: Patient complaining of being tired. Patient resting in bed. - Physical Exam Vitals/I&O's: Vital Signs Temp Pulse Resp BP Pulse Ox 98.0 F 65 18 95/70 99 11/05/19 18:26 11/05/19 18:26 11/05/19 18:26 11/05/19 18:26 11/05/19 18:26 Oxygen Flow Rate (L/min) 2 Oxygen Delivery Method Room Air Weight: 386 lb 3.998 oz Body Mass Index (BMI) 62.3 Intake and Output for Last 24 Hours 11/03/19 11/04/19 11/05/19 23:59 23:59 23:59 Intake Total 1070.00 / 1670.00 4400 / 4850 4010 / 4010 Output Total 300 / 650 1050 / 1650 1250 / 1250 Balance 770.00 / 1020.00 3350 / 3200 2760 / 2760 General: Alert, Oriented x3, Cooperative HEENT: Atraumatic Oral: Moist Mucosa Lungs: Normal air movement Cardiovascular: Regular rate Abdomen: Obese Extremities: Capillary Refill Less than 3 Seconds, Edema Skin: Ulcer/ Wound - Right lower abdomen with wound VAC in place. Surroundine erythema improved today. There is moisture in the pannus skin fold. Powder and pillow case placed in skin folds to help with the moisture. Musculoskeletal: No Tenderness to Palpation of Joints or Extremities Neurological: Cranial nerves II-XII grossly intact Psych/Mental Status: Normal Affect, Appropriate Microbiology Past 72 Hours 11/03/19 14:40 Wound - Abdominal Gram Stain - Final 11/03/19 14:40 Wound - Abdominal Wound Culture - Preliminary Gram negative yasmeen GPC Poss Enterococcus sp Gram negative yasmeen#2 Laboratory Results 11/05/19 08:51: Sodium 140, Potassium 5.5 H, Chloride 110 H, Carbon Dioxide 24.0, Anion Gap 6, BUN 61 H, Creatinine 2.62 H, Estim Creat Clear Calc 27.40, Est GFR (MDRD) Af Amer 32 L, Est GFR (MDRD) Non-Af 27 L, BUN/Creatinine Ratio 23.3 H, Glucose 88, Calcium 8.6, Magnesium 2.0 11/05/19 08:51: WBC 7.8, RBC 2.67 L, Hgb 9.3 L, Hct 28.9 L, MCV 108.2 H, MCH 34.8 H, MCHC 32.2, RDW Std Deviation 55.8 H, RDW Coeff of Florina 14.3, Plt Count 191, MPV 9.5, Immature Gran % (Auto) 0.400, Neut % (Auto) 72.8 H, Lymph % (Auto) 10.1 L, [place] % (Auto) 12.2 H, Eos % (Auto) 4.2, Baso % (Auto) 0.3, Absolute Neuts (auto) 5.7, Absolute Lymphs (auto) 0.79 L, Nucleated RBC % 0 11/05/19 11:00: COVID-19 ([facility]) Negative Medical Necessity - Tobacco Use Smoking Status: Never smoker Assessment/Plan All Active Problems (Last Reviewed 07/19/19 @ 22:[address] Anthony Pisano MD) Open wound, abdominal wall, lateral (Acute) Wound infection after surgery (Acute) Acute exacerbation of CHF (congestive heart failure) (Acute) 1. Wound infection. 2. Massive abdominal panniculus with panniculitis. 3. Necrotizing soft tissue infection. 4. Recent weight loss. 5. Abdominal wall skin crease intertrigo. 6. Painful lymphedema lower abdominal wall. 7. Lumbar back pain. 8. History of laparoscopic ventral hernia repair with mesh. 9. History of DVT. 10. s/p surgical preparation right abdominal wall with excisional debridement skin, subcutaneous tissue, and fascia necrotizing soft tissue infection (731 cm2) and abdominal panniculectomy on 10/21/2019. Patient resting in bed. He states that he continues to have issues with his blood pressure being low on and off. He is complaining of fatigue. VAC in place. Erythema surrounding the wound is improving. Will continue VAC upon transfer to [facility]. Preliminary cultures are gram negative yasmeen, Possible Enterococcus and Gram neg yasmeen #2. Continue Zosyn. ID consulted. Prealbumin 14.9. Encourage supplemental nutrition and increase protein intake. Discussed how to increase protein intake including supplements like Danish. Approval for ECF to [facility]. He should be transferred there today. Awaiting for ID to see patient for evaluation of antibiotic management after transfer.
[2019-11-05 13:12] VITALS: BP 82/45; PULSE 53; RESP 18; TEMP 36.6; O2SAT 98
--- NOTE | 2019-11-05 16:10 | CON.PCM_ITS ---
Problem List (1) Wound infection after surgery Status: Acute Reason for Consult: wound infection Consulted by: Dr. Pisano History of Present Illness: The patient is a 59 year old M with panniculectomy 10/21/[address] Pisano, had wound vac in place, ongoing drainage, seen in wound center, sent to ED due to heavy drainage and mild redness around the wound. Admitted on zosyn, cxs taken. Denies fever, pain controlled, no n/v/d. Picc in place. Feeling better. Full ROS performed and neg except as noted above. - Medical History Past Medical History (Chronic Problems): Chronic Problems (Last Reviewed 07/19/19 @ 22:[address] Anthony Pisano MD) History of ventral hernia repair (Chronic) with mesh in last 2 years at [facility] Lumbar back pain (Chronic) from weight of massive abdominal panniculus Ventral hernia (Chronic) laparoscopic repair 2 years ago with mesh Lymphedema (Chronic) painful lymphedema lower abdominal wall Intertrigo (Chronic) abdominal wall skin crease intertrigo Recent weight loss (Chronic) about 100 lbs Panniculitis (Chronic) Abdominal panniculus, symptomatic (Chronic) Presence of implantable cardioverter-defibrillator (ICD) (Chronic) History of radiofrequency ablation (RFA) procedure for cardiac arrhythmia (Chronic) 2007 @ [facility] per Dr. Lange, 2009 @ [facility] for WPW with success. 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) Rotator cuff tear (Chronic) COPD (chronic obstructive pulmonary disease) (Chronic) Anxiety and depression (Chronic) History of DVT (deep vein thrombosis) (Chronic) Diastolic heart failure (Chronic) TEX (obstructive sleep apnea) (Chronic) Hyperlipidemia (Chronic) Benign essential hypertension (Chronic) Rheumatoid arthritis (Chronic) dilated right ventricle (Chronic) Cardiomyopathy (Chronic) Super obesity (Chronic) WPW (Dwmvn-Lzbxrsszz-Ctber syndrome) (Chronic) Atrial fibrillation (Chronic) Allergies/Adverse Reactions: Allergies latex Allergy (Verified 08/25/19 06:54) Rash warfarin sodium [From Coumadin] Adverse Reaction (Verified 09/29/19 06:35) Other caused 2 holes in lungs and chest, advised to never take again Home Medications: Ambulatory Orders Medication Instructions Recorded Bupropion HCl 100 mg PO DAILY 05/02/14 Nitroglycerin (INPATIENT USE) 0.4 mg SUBLINGUAL Q5M PRN 07/17/14 [Nitrostat] Cholecalciferol (Vitamin D3) 3,000 unit PO DAILY 05/08/18 [Vitamin D3] Cyanocobalamin (Vitamin B-12) 1,000 mcg PO DAILY 05/08/18 [Vitamin B-12] Lorazepam [Ativan] 0.5 mg PO BID 05/08/18 Multivitamin with Minerals 2 ea PO DAILY 05/08/18 [Multiple Vitamin] Sacubitril/Valsartan 97-103 mg 1 tab PO BID 05/08/18 [Entresto 97 mg-103 mg Tablet] Amiodarone HCl 400 mg PO DAILY 11/05/18 Sertraline HCl [Zoloft] 50 mg PO BID 11/05/18 Furosemide [Lasix] 40 mg PO DAILY 01/27/19 carvedilol 12.5 mg tablet 6.25 mg PO BID tab 05/22/19 levothyroxine 25 mcg tablet 25 mcg PO DAILY 05/22/19 oxybutynin chloride 15 mg 15 mg PO DAILY 05/22/19 tablet,extended release 24 hr spironolactone 25 mg tablet 25 mg PO BID tab 05/22/19 tizanidine 4 mg tablet 4 mg PO BID 05/22/19 Senna Plus Tablet 8.6 mg PO BID 10/20/19 Diazepam [Valium] 5 mg PO 4X/DAY PRN PRN #30 tab 10/23/19 Docusate Sodium [Colace] 100 mg PO BID #0 cap 10/23/19 Zolpidem Tartrate [Ambien] 5 mg PO QHS tab 10/23/19 Piperacil/Tazobactam [Zosyn] 3.375 gm IV Q12H 14 Days #28 vial 11/05/19 - Social History Tobacco Use: non-smoker Vital Signs Temp Pulse Resp BP Pulse Ox 97.9 F 53 L 18 82/45 L 98 11/05/19 13:12 11/05/19 13:12 11/05/19 13:12 11/05/19 13:12 11/05/19 13:12 Oxygen Flow Rate (L/min) 2 Oxygen Delivery Method Room Air Weight: 175.2 kg Body Mass Index (BMI) 62.3 Microbiology Past 72 Hours 11/03/19 14:40 Gram Stain - Final Wound - Abdominal Wound Culture - Preliminary Gram negative yasmeen GPC Poss Enterococcus sp Gram negative yasmeen#2 Laboratory Tests Past 24 Hrs 11/05/19 11/05/19 11/05/19 08:51 08:51 11:00 WBC 7.8 RBC 2.67 L Hgb 9.3 L Hct 28.9 L MCV 108.2 H MCH 34.8 H MCHC 32.2 RDW Std Deviation 55.8 H RDW Coeff of Florina 14.3 Plt Count 191 MPV 9.5 Immature Gran % (Auto) 0.400 Neut % (Auto) 72.8 H Lymph % (Auto) 10.[address] [place] % (Auto) 12.2 H Eos % (Auto) 4.2 Baso % (Auto) 0.3 Absolute Neuts (auto) 5.7 Absolute Lymphs (auto) 0.79 L Nucleated RBC % 0 Sodium 140 Potassium 5.5 H Chloride 110 H Carbon Dioxide 24.0 Anion Gap 6 BUN 61 H Creatinine 2.62 H Estim Creat Clear Calc 27.40 Est GFR (MDRD) Af Amer 32 L Est GFR (MDRD) Non-Af 27 L BUN/Creatinine Ratio 23.3 H Glucose 88 Calcium 8.6 Magnesium 2.0 COVID-19 ([facility]) Negative - Other Studies Radiology: [] reviewed Other Studies: [] Route of nutrition/ use of supplements: [] Nutritional Intake: [] IV Site: [] Simon Catheter: [] - Physical Exam General: Alert, Oriented x3, Cooperative, No apparent distress HEENT: Atraumatic, PERRLA, EOMI Neck: Supple, No Nodes Lungs: Clear to auscultation, Normal air movement Cardiovascular: Regular rate, Regular Rhythm Abdomen: Soft, Obese Extremities: No edema Skin: Incision - reviewed photos IV Site: PICC, without redness Musculoskeletal: No Tenderness to Palpation of Joints or Extremities Neurological: Cranial nerves II-XII grossly intact - Assessment/Plan Antibiotics: [] Assessment/Plan: [] Active and Suspected Problems (Last Reviewed 07/19/19 @ 22:[address] Anthony Pisano MD) Open wound, abdominal wall, lateral (Acute) Wound infection after surgery (Acute) Cont zosyn, picc in place. Wound cx with GNR x2 and possible enterococcus. No fever, normal wbc. Will write for 2 weeks of zosyn and follow cx data. ID followup in 1 week at wound center, will follow. Josep cyanide case hardener.
--- NOTE | 2019-11-05 16:29 | CASEMGMT ---
Social Work Note SW received IV antibiotic script and faxed to [facility]. COVID test is also available and BEATRICE faxed results to [facility]. BEATRICE placed a call to Anette at [facility]. Anette states that pre-cert is only good for today and if pt doesn't discharge today then pre-cert will need to be resubmitted tomorrow. BEATRICE updated that per physician, pt is able to discharge to [facility] today and will be in to complete discharge paperwork. SW in to update pt on approval and discharge to [facility] today. Pt states understanding. [facility], BEATRICE placed a call to [facility] and spoke with Segundo to schedule transport via cot. BEATRICE requested transport to be 6:00pm or later as physician still needs to complete paperwork. BEATRICE made sure to inform Segundo that pt is bariatric at 386 pounds and requested physician's ambulance for transport. Segundo states he has submitted the request and will call with transport company and orange picking supervisor time. BEATRICE placed a call to Anette in admissions and updated her that pt will be discharged today and this worker is working on arranging transportation. Anette states she is leaving at 4:30pm and to fax discharge paperwork to [phone]. Anette states to just call [facility] main number when transportation time has been arranged and let staff know discharge time. BEATRICE completed [facility] in [place]. Original in SNF folder and copy on pt's chart. BEATRICE also completed COVID screening tool and placed original in SNF folder and copy on pt's chart. BEATRICE placed a call to [facility] and asked Tejas with [facility] to call [facility] main number when transport has been arranged as this worker is leaving for the day. BEATRICE updated [place] and RN. Plan: Discharge to [facility] today. [facility] to call [facility] number when transportation has been arranged. Mary Murillo ENTERPRISE DATA ARCHITECT, MAGNETIC LOCATER
--- NOTE | 2019-11-05 16:49 | PCM.TXEXTCAR ---
- Diet 11/04/19 11:11 Diet: Cardiac/Low Cholesterol Food consistency:: Regular Liquid Consistency:: Regular/Thin Is pt able to select menu?: Yes Diet Comments: low sodium - Routine Orders/Code Status Routine Lab Work: CBC - qMonday. Fax results to [phone] and [phone]., - - CMP, ESR, CRP qMonday. Fax results to [phone] and [phone]. Code Status: Full Code - Wound(s) abdominal Wound Type: Surgical Incision right lower abdomen Wound Type: Open Surgical Wound Dressing Change: applied KCI wound VAC - Suggestions for Active Care Change Position every (hours): 2 Hours to sit in a chair: 4 - while sitting, do pressure releases q10 minutes for 10 seconds. Times a day to sit in chair: 3 - Therapies Weight Bearing: Weight bearing as tolerated Extremity Affected:: Bilateral Lower Physical Therapy: Eval and Treat Occupational Therapy: Eval and Treat - Allergies/Procedures Done in Hospital Allergies/Adverse Reactions: Allergies latex Allergy (Verified 08/25/19 06:54) Rash warfarin sodium [From Coumadin] Adverse Reaction (Verified 09/29/19 06:35) Other caused 2 holes in lungs and chest, advised to never take again Procedures: PICC line placement, Wound Vac placement - Type of Care/Length of Stay Estimated LOS: More Than 30 Days Type of Care Needed: Skilled Rehab Potential: Fair Prognosis: Fair - Additional Orders/Day of Discharge Additional Orders: Zosyn 3.375 gms IV q8 hours through the PICC ilne for 2 weeks. Will reassess at the Wound Center. H&P will serve as current which was dated: 11/03/19 Day of Discharge: 11/05/19 - Dietary and Speech Recommendations Dietitian Recommendations/Changes: Will change diet to Cardiac low sodium d/t pmhx and edema. Will order Danish bid to help w/ wound healing - Follow Up Care Primary Care Physician: Esteban Tim Chi, MD [Primary Care Provider] - Please Follow Up With: Anthony Pisano MD - call [phone] for appt time When: wound center on 11/10/19 Please Follow Up With: Pepe Dillard MD When: wound center in 1-2 weeks. call [phone] for appt time.
[2019-11-05 18:26] VITALS: BP 95/70; PULSE 65; RESP 18; TEMP 36.7; O2SAT 99
[2019-11-05] MEDS: 0.9% Saline Lock 10 ML Syringe IV (18:30)
--- NOTE | 2019-11-05 19:43 | NURSING ---
PT D/C TO [facility] AND REPORT CALLED - PT'S WOUND VAC REMOVED AND CLEANED AND IN BLUE BAG IN SOILED UTILITY ROOM- [place] - WASTE COLLECTOR CALLED [facility]- TRANSPOT CAME A GOT PT AND HIS BELONGINGS IN [place] BUT WERE UNABLE TO TAKE PT'S WALKER- TOLD [facility] THAT TRANSPORT WERE UNABLE TO GET PT'S WALKER- OLIVIA RIVAS RN WILL TAKE IT TO THE CARE HOME ON HER WAY HOME-
--- NOTE | 2019-11-05 22:25 | PCM.DC.SUM ---
Discharge Date and Diagnosis Date of Admission: 11/03/19 Date of Discharge: 11/05/19 - Primary Discharge Diagnosis Acute Problems: Right lateral abdominal wall wound infection Open surgical wound right lateral abdominal wall - Secondary Discharge Diagnosis Chronic Problems: Massive abdominal panniculus with panniculitis. Recent weight loss. Abdominal wall skin crease intertrigo. Painful lymphedema lower abdominal wall. Lumbar back pain. History of laparoscopic ventral hernia repair with mesh. History of DVT. Presence of implantable cardioverter-defibrillator (ICD) History of radiofrequency ablation (RFA) procedure for cardiac arrhythmia History of left heart catheterization Primary osteoarthritis of right shoulder DDD (degenerative disc disease), lumbosacral Radiculopathy of lumbosacral region Spondylosis of lumbosacral region without myelopathy or radiculopathy Rotator cuff tear COPD (chronic obstructive pulmonary disease) Anxiety and depression Diastolic heart failure TEX (obstructive sleep apnea) Hyperlipidemia Benign essential hypertension Rheumatoid arthritis dilated right ventricle Cardiomyopathy Super obesity WPW (Lhlrn-Tikaiwbys-Xpxqx syndrome) Atrial fibrillation Hospital Course and Treatment Imaging Results: Diagnostic Data Chest X-Ray 11/03/19 18:40 IMPRESSION: Chronic CHF Electronically Signed: Giuseppe Hernandez MD at 19:07 EDT , Service support , Consultations 11/04/19 06:44 Consult: Onc/Wound/document manager Routine Comment: Reason for Consult:: vac abdomen Hospitalist Group - Dr. Correa. Infectious Diseases - Dr. Dillard. Operations: None Procedures: PICC line placement, Wound vac placement Summary of Care Provided: Patient had surgery 10/21/19 where he underwent surgical preparation right abdominal wall with excisional debridement skin, subcutaneous tissue, and fascia necrotizing soft tissue infection (731 cm2) and abdominal panniculectomy. Postoperatively wound care was started with the VAC. His operative culture was negative. He was discharged home on 10/23/19 on Cefadroxil for 7 days. Today he was seen at the Wound Center with increasing drainage from the wound and some periwound redness. His clothes were soaked from the drainage. He denies fever. Patient stated that the VAC sponge was in the wound without proper suction since last night. This increases the risk of wound infection. Patient was admitted to the hospital on 11/03/19 for IV antibiotics (Vancomycin and Zosyn) for the wound infection secondary to VAC malfunction. A Will have the patient evaluated for placement at an ECF as the patient was having difficulty managing this large abdominal wall wound at home at this time. Patient voices understanding. Hospitalist Group was consulted for medical management during his hospital stay. He was afebrile throughout his hospital stay. The VAC was reapplied. A wound culture was obtained. At the time of discharge the wound culture was positive for Gram negative rods and possible Enterococcus. Infectious Diseases was consulted and the Vancomycin was stopped. He was continued on Zosyn at discharge for at least 2 weeks. Prealbumin was 14.9. Encouraged nutritional supplementation with protein to help the healing process. On the second hospital day he was approved to go to an ECF ([facility]). He was discharged in satisfactory condition. He will continue Valium for spasm while the VAC is in place. The VAC will be changed three times per week at 150 mmHg continuous suction. He will followup at the Wound Center on Sunday11/10/19. Dr. Dillard will also see him at the Wound Center in 1-2 weeks. - Physical Exam Vitals/I&O's: Vital Signs Temp Pulse Resp BP Pulse Ox 98.0 F 65 18 95/70 99 11/05/19 18:26 11/05/19 18:26 11/05/19 18:26 11/05/19 18:26 11/05/19 18:26 Oxygen Flow Rate (L/min) 2 Oxygen Delivery Method Room Air Weight: 386 lb 3.998 oz Body Mass Index (BMI) 62.3 Intake and Output for Last 24 Hours 11/03/19 11/04/19 11/05/19 23:59 23:59 23:59 Intake Total 1070.00 / 1670.00 4400 / 4850 4010 / 4010 Output Total 300 / 650 1050 / 1650 1250 / 1250 Balance 770.00 / 1020.00 3350 / 3200 2760 / 2760 Microbiology Past 72 Hours 11/03/19 14:40 Wound - Abdominal Gram Stain - Final 11/03/19 14:40 Wound - Abdominal Wound Culture - Preliminary Gram negative yasmeen GPC Poss Enterococcus sp Gram negative yasmeen#2 Laboratory Results 11/05/19 08:51: Sodium 140, Potassium 5.5 H, Chloride 110 H, Carbon Dioxide 24.0, Anion Gap 6, BUN 61 H, Creatinine 2.62 H, Estim Creat Clear Calc 27.40, Est GFR (MDRD) Af Amer 32 L, Est GFR (MDRD) Non-Af 27 L, BUN/Creatinine Ratio 23.3 H, Glucose 88, Calcium 8.6, Magnesium 2.0 11/05/19 08:51: WBC 7.8, RBC 2.67 L, Hgb 9.3 L, Hct 28.9 L, MCV 108.2 H, MCH 34.8 H, MCHC 32.2, RDW Std Deviation 55.8 H, RDW Coeff of Florina 14.3, Plt Count 191, MPV 9.5, Immature Gran % (Auto) 0.400, Neut % (Auto) 72.8 H, Lymph % (Auto) 10.1 L, [place] % (Auto) 12.2 H, Eos % (Auto) 4.2, Baso % (Auto) 0.3, Absolute Neuts (auto) 5.7, Absolute Lymphs (auto) 0.79 L, Nucleated RBC % 0 11/05/19 11:00: COVID-19 ([facility]) Negative Discharge Diet: - - Cardiac/Low Cholesterol Discharge Activity: May Not Drive, May Shower - the days the VAC is changed. Weight Bearing Status: Weight bearing as tolerated Keep extremity elevated above heart level: - - elevate legs when sitting. Call your doctor if your incision/area has: Continuous Slow Oozing, Sudden Increased Bleeding, Increased Pain/ Swelling, Increased Redness, Foul Smelling Discharge, Swelling at the incision site Call your doctor if you observe: Fever of 101 or Higher, Coldness, Increased Pain, Shortness of breath, Chest pain, Calf discomfort, Uncontrolled pain Suture Line Care: - - vac changes three times per week at 150 mmHg continuous suction. Change Dressing in (Days):: 2 - vac changes three times per week. Cleanse incision/area with: Soap & Water - may cleanse the wound with soap and water at the time of the vac change., - - may shower on the days the vac is changed. Home Medications: Medications to take at Discharge Bupropion HCl 100 mg PO DAILY 05/02/14 Nitroglycerin (INPATIENT USE) [Nitrostat] 0.4 mg SUBLINGUAL Q5M PRN 07/17/14 Cholecalciferol (Vitamin D3) [Vitamin D3] 3,000 unit PO DAILY 05/08/18 Cyanocobalamin (Vitamin B-12) [Vitamin B-12] 1,000 mcg PO DAILY 05/08/18 Multivitamin with Minerals [Multiple Vitamin] 2 ea PO DAILY 05/08/18 Sacubitril/Valsartan 97-103 mg [Entresto 97 mg-103 mg Tablet] 1 tab PO BID 05/08/18 Amiodarone HCl 400 mg PO DAILY 11/05/18 Sertraline HCl [Zoloft] 50 mg PO BID 11/05/18 Furosemide [Lasix] 40 mg PO DAILY 01/27/19 carvedilol 12.5 mg tablet 6.25 mg PO BID tab 05/22/19 levothyroxine 25 mcg tablet 25 mcg PO DAILY 05/22/19 oxybutynin chloride 15 mg tablet,extended release 24 hr 15 mg PO DAILY 05/22/19 spironolactone 25 mg tablet 25 mg PO BID tab 05/22/19 tizanidine 4 mg tablet 4 mg PO BID 05/22/19 Senna Plus Tablet 8.6 mg PO BID 10/20/19 Docusate Sodium [Colace] 100 mg PO BID #0 cap 10/23/19 Zolpidem Tartrate [Ambien] 5 mg PO QHS tab 10/23/19 Acetaminophen [Tylenol Tablet] 650 mg PO Q4H PRN PRN tab 11/05/19 Diazepam [Valium] 5 mg PO 4X/DAY PRN PRN #30 tab 11/05/19 Enoxaparin [Lovenox] 40 mg SUBCUT DAILY syringe 11/05/19 Ipratropium/Albuterol Sulfate [Duoneb] 3 ml INHALATION Q4H PRN ampul.neb 11/05/19 Danish (unflavored) [Danish Packet] 1 packet PO BIDCM packet 11/05/19 Lorazepam [Ativan] 0.5 mg PO BID #30 tab 11/05/19 Nystatin Powder [Mycostatin Powder] 1 applic TOPICAL TID bottle 11/05/19 Oxycodone [Oxyir] 10 mg PO Q4H PRN PRN 7 Days #40 tab 11/05/19 Piperacil/Tazobactam [Zosyn] 3.375 gm IV Q12H 14 Days #28 vial 11/05/19 proMETHazine tablet [Phenergan tablet] 25 mg PO Q4H PRN PRN tab 11/05/19 Following Prescriptions Were Given to Patient: Lorazepam [Ativan] 0.5 mg PO BID #30 tab Prescription Printed Oxycodone [Oxyir] 10 mg PO Q4H PRN PRN 7 Days #40 tab PRN Reason: Pain Score 4-5/10 Prescription Printed Diazepam [Valium] 5 mg PO 4X/DAY PRN PRN #30 tab PRN Reason: Spasms Prescription Printed Piperacil/Tazobactam [Zosyn] 3.375 gm IV Q12H 14 Days #28 vial Prescription Printed Primary Care Physician: Esteban Tim Chi, MD [Primary Care Provider] - Please Follow Up With: Anthony Pisano MD - call [phone] for appt time When: wound center on 11/10/19 Please Follow Up With: Pepe Dillard MD When: wound center in 1-2 weeks. call [phone] for appt time. Disposition: Senior Living facility Minutes spent on discharge:: 35 Patient Condition:: Fair Medical Necessity - Tobacco Use Smoking Status: Never smoker Meaningful Use Info Meaningful Use Diagnoses (Choose all that apply): None applicable
--- NOTE | 2019-11-06 14:33 | CASEMGMT ---
Social Work Note SW placed a call to pt's CARON Cowan at [facility] and left message that pt was discharged to [facility] yesterday. Mary Murillo HORTICULTURAL FARM MANAGER, GUILLOTINE OPERATOR
== END 2019-11-05 18:47 | disposition skilled nursing facility (03) | DRG 607 ==
PROVIDERS: Internal Medicine; Admitting Provider Surgery; PCP Family Medicine Geriatric Medicine; Referring Provider Surgery; Visit Provider Surgery
DX: M79.3 Panniculitis, unspecified (principal); T81.41XA Infection following a procedure, superficial incisional surgical site, initial encounter; I42.8 Other cardiomyopathies; I48.20 Chronic atrial fibrillation, unspecified; Z68.44 Body mass index [BMI] 60.0-69.9, adult; I50.22 Chronic systolic (congestive) heart failure; I96 Gangrene, not elsewhere classified; E78.5 Hyperlipidemia, unspecified; T88.8XXA Other specified complications of surgical and medical care, not elsewhere classified, initial encounter; Y65.8 Other specified misadventures during surgical and medical care; Y82.8 Other medical devices associated with adverse incidents; I89.0 Lymphedema, not elsewhere classified; J44.9 Chronic obstructive pulmonary disease, unspecified; G47.33 Obstructive sleep apnea (adult) (pediatric); M54.5 Low back pain; E66.01 Morbid (severe) obesity due to excess calories; L30.4 Erythema intertrigo; I11.0 Hypertensive heart disease with heart failure; S31.109A Unspecified open wound of abdominal wall, unspecified quadrant without penetration into peritoneal cavity, initial encounter; T78.8XXA Other adverse effects, not elsewhere classified, initial encounter; E03.9 Hypothyroidism, unspecified; F32.9 Major depressive disorder, single episode, unspecified; F41.9 Anxiety disorder, unspecified; I45.6 Pre-excitation syndrome; K43.9 Ventral hernia without obstruction or gangrene; I48.0 Paroxysmal atrial fibrillation; Z90.49 Acquired absence of other specified parts of digestive tract; Z79.890 Hormone replacement therapy; Z95.810 Presence of automatic (implantable) cardiac defibrillator; Z86.718 Personal history of other venous thrombosis and embolism; Z71.3 Dietary counseling and surveillance
CPT/HCPCS: 36415; 36569; 71045; 80048; 80053; 83605; 83735; 84134; 85025; 85027; 85610; 85652; 86140; 87070; 87077; 87186; 87205; 87635; 87640; 94799; 97110; 97116; 97162; 97166; 97530; 99214; J7030; J7040; A4216; G0463; U0003

== ENCOUNTER 2019-11-17 08:30 | Outpatient (RCR) | payer MEDICARE, SELFPAY ==
[2019-10-21 07:57] VITALS: BMI 64.0
[2019-11-03 08:53] VITALS: BP 91/33; PULSE 56; RESP 18; TEMP 36.4; BMI 64.2
--- NOTE | 2019-11-03 15:50 | HP.PCM_ITS ---
(1) Open wound, abdominal wall, lateral Status: Acute Current Visit: Yes Code(s): S31.109A - Unspecified open wound of abdominal wall, unspecified quadrant without penetration into peritoneal cavity, initial encounter (2) Lymphedema Status: Chronic Current Visit: Yes Code(s): I89.0 - Lymphedema, not elsewhere classified Comment: painful lymphedema lower abdominal wall (3) Intertrigo Status: Chronic Current Visit: Yes Code(s): L30.4 - Erythema intertrigo Comment: abdominal wall skin crease intertrigo (4) Panniculitis Status: Chronic Current Visit: Yes Code(s): M79.3 - Panniculitis, unspecified (5) Recent weight loss Status: Chronic Current Visit: No Code(s): R63.4 - Abnormal weight loss Comment: about 100 lbs (6) Abdominal panniculus, symptomatic Status: Chronic Current Visit: Yes Code(s): E65 - Localized adiposity (7) Diastolic heart failure Status: Chronic Current Visit: Yes Code(s): I50.30 - Unspecified diastolic (congestive) heart failure History of Present Illness Date of Service: 11/03/19 Chief Complaint: Right lower and mid abdominal surgical wound. History of Wound: On 10/21/19 patient had surgery for 1. Surgical preparation right abdominal wall with excisional debridement skin, subcutaneous tissue, and fascia necrotizing soft tissue infection (731 cm2). 2. Abdominal panniculectomy. He was discharged home on 10/23/19 with a wound VAC. Prealbumin 24.6 from 10/20/19. Patient comes in today with issues with the wound VAC canister needing replaced 2 times per day. He is having difficulty at home dealing with his wound. He has home health 3 times per week. He is cold and not feeling well. He denies fever but states he is not able to get warm. After speaking with Dr. Pisano, it was decided to admit him to the hospital for further observation. Past Medical History Past Medical History: Chronic Problems (Last Reviewed 07/19/19 @ 22:[address] Anthony Pisano MD) History of ventral hernia repair (Chronic) with mesh in last 2 years at [facility] Lumbar back pain (Chronic) from weight of massive abdominal panniculus Ventral hernia (Chronic) laparoscopic repair 2 years ago with mesh Lymphedema (Chronic) painful lymphedema lower abdominal wall Intertrigo (Chronic) abdominal wall skin crease intertrigo Recent weight loss (Chronic) about 100 lbs Panniculitis (Chronic) Abdominal panniculus, symptomatic (Chronic) Presence of implantable cardioverter-defibrillator (ICD) (Chronic) History of radiofrequency ablation (RFA) procedure for cardiac arrhythmia (C hronic) 2007 @ [facility] per Dr. Lange, 2009 @ [facility] for WPW with success. 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) Rotator cuff tear (Chronic) COPD (chronic obstructive pulmonary disease) (Chronic) Anxiety and depression (Chronic) History of DVT (deep vein thrombosis) (Chronic) Diastolic heart failure (Chronic) TXE (obstructive sleep apnea) (Chronic) Hyperlipidemia (Chronic) Benign essential hypertension (Chronic) Rheumatoid arthritis (Chronic) dilated right ventricle (Chronic) Cardiomyopathy (Chronic) Super obesity (Chronic) WPW (Edazx-Epplkpegr-Gdtwv syndrome) (Chronic) Atrial fibrillation (Chronic) Surgical History: cholecystectomy, herniorrhaphy, - - Cardiac ablation x 2, Defib placement, Cholecystectomy, LLE surgery s/p trauma w/ hardware removal later, gastric sleeve surgery Allergies/Adverse Reactions: Allergies latex Allergy (Verified 08/25/19 06:54) Rash warfarin sodium [From Coumadin] Adverse Reaction (Verified 09/29/19 06:35) Other caused 2 holes in lungs and chest, advised to never take again Home Medications: Ambulatory Orders Medication Instructions Recorded Bupropion HCl 100 mg PO DAILY 05/02/14 Nitroglycerin (INPATIENT USE) 0.4 mg SUBLINGUAL Q5M PRN 07/17/14 [Nitrostat] Cholecalciferol (Vitamin D3) 3,000 unit PO DAILY 05/08/18 [Vitamin D3] Cyanocobalamin (Vitamin B-12) 1,000 mcg PO DAILY 05/08/18 [Vitamin B-12] Lorazepam [Ativan] 0.5 mg PO BID 05/08/18 Multivitamin with Minerals 2 ea PO DAILY 05/08/18 [Multiple Vitamin] Sacubitril/Valsartan 97-103 mg 1 tab PO BID 05/08/18 [Entresto 97 mg-103 mg Tablet] Amiodarone HCl 400 mg PO DAILY 11/05/18 Sertraline HCl [Zoloft] 50 mg PO BID 11/05/18 Furosemide [Lasix] 40 mg PO DAILY 01/27/19 carvedilol 12.5 mg tablet 6.25 mg PO BID tab 05/22/19 levothyroxine 25 mcg tablet 25 mcg PO DAILY 05/22/19 oxybutynin chloride 15 mg 15 mg PO DAILY 05/22/19 tablet,extended release 24 hr spironolactone 25 mg tablet 25 mg PO BID tab 05/22/19 tizanidine 4 mg tablet 4 mg PO BID 05/22/19 Senna Plus Tablet 8.6 mg PO BID 10/20/19 Diazepam [Valium] 5 mg PO 4X/DAY PRN PRN #30 tab 10/23/19 Docusate Sodium [Colace] 100 mg PO BID #0 cap 10/23/19 Zolpidem Tartrate [Ambien] 5 mg PO QHS tab 10/23/19 - Family History Maternal Family History: Family History (Last Reviewed 07/19/19 @ 22:[address] Anthony Pisano MD) Sister Arthritis Brother Psychiatric care Heart Disease, Hypertension Paternal Family History: Family History (Last Reviewed 07/19/19 @ 22:[address] Anthony Pisano MD) Sister Arthritis Brother Psychiatric care Heart Disease, Hypertension Smoking Status: Never smoker Review of Systems Constitutional: Reports: Chills, Weakness. Denies: Fever Eyes: Denies: Pain, Vision Change HEENT: Denies: Difficulty Hearing, Difficulty Swallowing, Sinus Congestion Cardiovascular: Denies: Chest Pain, Palpitations Respiratory: Denies: Cough, Shortness of Breath Gastrointestinal: Denies: Diarrhea, Nausea, Vomiting Skin: Reports: Wounds - Right lower to mid abdomen surgical wound. Neurological: Reports: Balance problems - Walks with a walker. Denies: Change in Speech, Confusion Psychiatric: Reports: Anxiety Endocrine: Reports: Heat/ Cold Intolerance - Cold intolerance. Denies: Polydipsia, Polyuria - Physical Exam Vital Signs Temp Pulse Resp BP 97.6 F L 56 L 18 91/33 L 11/03/19 08:53 11/03/19 08:53 11/03/19 08:53 11/03/19 08:53 General: Alert, Oriented x3, Cooperative HEENT: Atraumatic Oral: Moist Mucosa Lungs: Normal air movement Cardiovascular: Regular rate Abdomen: Soft, Obese, Tender Extremities: Capillary Refill Less than 3 Seconds Skin: Ulcer/ Wound - Right lower to mid abdomen surgical wound with increased biofilm and slough. Draining copious amounts of drainage. Errythema surrounding the opened area. Wound Measurements and Assessment WC - Nurse 1 - General Ulcer Measurement Start: 11/03/19 08:53 Freq: Status: Active Protocol: Activity Type Activity Date Activity User E-Sign Co-Sign Detail Recorded Client Recorded Date Recorded By Document 11/03/19 08:53 MW [id number] 11/03/19 09:30 MW 11/03/19 08:53 Wound Center Nurse 1 [Ulcer Assessment] #1 lower abd post op -Combined with other wound No -Current Size (cm) - Length 4.5 -Current Size (cm) - Width 46.0 -Current Size (cm) - Depth 12.0 -Total Square Cm 207.00 -Date of Last Picture (Recall this 11/03/19 field) -Photo Taken Yes -Epithelialization None Present -Tunneling No -Undermining/Tunneling No -Circular Undermining No -Exudate Amt Large -Exudate Type Serosanguineous -Wound Margin Distinct, Outline Attached -Granulation Amt Large (67-100%) -Granulation Quality Red -Slough/Fibrin Yes -Necrosis Amt Small (1-33%) -Necrotic Tissue Type Adherent Slough -Structure Exposed N/A -Texture (Aravind-wound Skin Appearance) Assessed, Excoriation -Moisture (Aravind-wound Skin Appearance No Abnormality, ) Assessed -Color (Aravind-wound Skin Appearance) No Abnormality -Temperature (Aravind-wound Skin No Abnormality Appearance) (Pt Warm) -Tenderness on Palpation (Aravind-wound Yes Skin Appearance) -Ulcer Cleansing soap and water -Foul Odor after Cleansing No -Anesthetic Used 4% Lidocaine Solution [Edema Assessment] -Lower Limb Edema Present No WC - Nurse 2 - General Ulcer CM Notes Start: 11/03/19 08:53 Freq: Status: Active Protocol: Activity Type Activity Date Activity User E-Sign Co-Sign Detail Recorded Client Recorded Date Recorded By Document 11/03/19 10:28 [id number] 11/03/19 10:29 11/03/19 10:28 Wound Center Nurse 2 [Procedure/Treatment] #1 lower abd post op -Correct Patient No -Correct Side, Site, Position No -Correct Procedure No -Procedure Performed No -Wound/Ulcer Outcome Not Healed [See Physician Procedure note for Specifics] Pain Scale: 0-10 Numeric [Pain] -Is Patient Pain Free? Yes Musculoskeletal: Tenderness Neurological: Cranial nerves II-XII grossly intact, Neuro grossly intact Psych/Mental Status: Appropriate, Anxious Debridement Note Post-Debridement Measurements/Treatment WC - Nurse 2 - General Ulcer CM Notes Start: 11/03/19 08:53 Freq: Status: Active Protocol: Activity Type Activity Date Activity User E-Sign Co-Sign Detail Recorded Client Recorded Date Recorded By Document 11/03/19 10:28 [id number] 11/03/19 10:29 11/03/19 10:28 Wound Center Nurse 2 #1 lower abd post op -Correct Patient No -Correct Side, Site, Position No -Correct Procedure No -Procedure Performed No -Wound/Ulcer Outcome Not Healed Pain Scale: 0-10 Numeric Is Patient Pain Free? Yes No debridement was completed today Assessment/Plan Active Problems (Last Reviewed 07/19/19 @ 22:[address] Anthony Pisano MD) Open wound, abdominal wall, lateral (Acute) Wound infection after surgery (Acute) Lymphedema (Chronic) painful lymphedema lower abdominal wall Intertrigo (Chronic) abdominal wall skin crease intertrigo Panniculitis (Chronic) Abdominal panniculus, symptomatic (Chronic) Diastolic heart failure (Chronic) Assessment: 1. Massive abdominal panniculus with panniculitis. 2. Necrotizing soft tissue infection. 3. Recent weight loss. 4. Abdominal wall skin crease intertrigo. 5. Painful lymphedema lower abdominal wall. 6. Lumbar back pain. 7. History of laparoscopic ventral hernia repair with mesh. 8. History of DVT. 9. s/p surgical preparation right abdominal wall with excisional debridement skin, subcutaneous tissue, and fascia necrotizing soft tissue infection (731 cm2) and abdominal panniculectomy. Plan: On 10/21/19 patient had surgery for 1. Surgical preparation right abdominal wall with excisional debridement skin, subcutaneous tissue, and fascia necrotizing soft tissue infection (731 cm2). 2. Abdominal panniculectomy. He was discharged home on 10/23/19 with a wound VAC. Prealbumin 24.6 from 10/20/19. Patient comes in today with issues with the wound VAC canister needing replaced 2 times per day. He has run out of canisters at home. He is having difficulty at home dealing with his wound. He has home health 3 times per week. He is cold and not feeling well. He states he is feeling weak. His wound has increased biofilm and slough. He left the wound VAC on all night with a full canister (because he didn't have another canister to replace it.) His aravind wound is red and excoriated. He is draining copious amounts of serosanguineous drainage. He denies fever but states he is not able to get warm. After speaking with Dr. Pisano, it was decided to admit him to the hospital for further observation. [id number]: [id number] Global Visit
[2019-11-17 09:16] VITALS: BP 93/62; PULSE 110; RESP 20; TEMP 36.9; BMI 64.2
--- NOTE | 2019-11-17 11:11 | PCM.WC.PN ---
(1) Open wound, abdominal wall, lateral Status: Chronic Current Visit: Yes Code(s): S31.109A - Unspecified open wound of abdominal wall, unspecified quadrant without penetration into peritoneal cavity, initial encounter (2) Lymphedema Status: Chronic Current Visit: Yes Code(s): I89.0 - Lymphedema, not elsewhere classified Comment: painful lymphedema lower abdominal wall (3) Intertrigo Status: Chronic Current Visit: Yes Code(s): L30.4 - Erythema intertrigo Comment: abdominal wall skin crease intertrigo (4) Panniculitis Status: Chronic Current Visit: Yes Code(s): M79.3 - Panniculitis, unspecified (5) Recent weight loss Status: Chronic Current Visit: No Code(s): R63.4 - Abnormal weight loss Comment: about 100 lbs (6) Abdominal panniculus, symptomatic Status: Chronic Current Visit: Yes Code(s): E65 - Localized adiposity (7) Diastolic heart failure Status: Chronic Current Visit: Yes Code(s): I50.30 - Unspecified diastolic (congestive) heart failure Type of Wound Date of Service: 11/17/19 Chief Complaint: Right lower and mid abdominal surgical wound. History of Wound: On 10/21/19 patient had surgery for 1. Surgical preparation right abdominal wall with excisional debridement skin, subcutaneous tissue, and fascia necrotizing soft tissue infection (731 cm2). 2. Abdominal panniculectomy. He was discharged home on 10/23/19 with a wound VAC. Prealbumin 24.6 from 10/20/19. Patient was having with issues with copious amounts of drainage and difficulty dealing with the wound at home. He was admitted on 11/03/19. Wound cultures from 11/03/19 were positive for Enterobacter cloacae, Enterococcus falcalis and Proteus mirabilis. He was placed on IV Zosyn and Vancomycin. He was discharged on 11/05/19 to [facility] with a PICC line and Zosyn and a wound VAC management. Today he denies fevers and states his appetite is ok. Progress of Wound: Increased biofilm. It does not appear that the foam from the wound vac is getting placed into the base of his ulcer well. - Physical Exam Vital Signs Temp Pulse Resp BP 98.5 F 110 H 20 H 93/62 11/17/19 09:16 11/17/19 09:16 11/17/19 09:16 11/17/19 09:16 General: Alert, Oriented x3, Cooperative HEENT: Atraumatic Oral: Moist Mucosa Lungs: Normal air movement Cardiovascular: Regular rate Abdomen: Obese Extremities: Capillary Refill Less than 3 Seconds, Edema Skin: Ulcer/ Wound - Right lower abdomen to mid abdominal ulcer with increase biofilm and fat necrosis. Wound Measurements and Assessment WC - Nurse 1 - General Ulcer Measurement Start: 11/03/19 08:53 Freq: Status: Active Protocol: Activity Type Activity Date Activity User E-Sign Co-Sign Detail Recorded Client Recorded Date Recorded By Document 11/17/19 09:16 DL [id number] 11/17/19 09:27 DL 11/17/19 09:16 Wound Center Nurse 1 [Ulcer Assessment] #1 lower abd post op -Current Size (cm) - Length 4 -Current Size (cm) - Width 47.5 -Current Size (cm) - Depth 10 -Total Square Cm 190.0 -Photo Taken No -Exudate Amt Medium -Exudate Type Serosanguineous -Wound Margin Distinct, Outline Attached -Granulation Amt Medium (34-66%) -Necrosis Amt Medium (34-66%) -Necrotic Tissue Type Adherent Slough -Structure Exposed N/A -Texture (Julia-wound Skin Appearance) Scarring -Moisture (Julia-wound Skin Appearance Assessed ) -Color (Julia-wound Skin Appearance) No Abnormality -Temperature (Julia-wound Skin No Abnormality Appearance) (Pt Warm) -Tenderness on Palpation (Julia-wound Yes Skin Appearance) -Ulcer Cleansing Wound Cleanser -Foul Odor after Cleansing No -Anesthetic Used 4% Lidocaine Solution WC - Nurse 2 - General Ulcer CM Notes Start: 11/13/19 13:32 Freq: Status: Active Protocol: Activity Type Activity Date Activity User E-Sign Co-Sign Detail Recorded Client Recorded Date Recorded By Document 11/17/19 09:39 NED [id number] 11/17/19 09:46 NED 11/17/19 09:39 Wound Center Nurse 2 [Procedure/Treatment] -Time 09:40 -Correct Patient Yes -Correct Side, Site, Position Yes -Correct Procedure Yes -Procedure Performed Yes -Type of Procedure Debridement -Clinical Debridement Subcutaneous -Tissue Removed Subcutaneous -Post Debridement (cm) - Length 9.5 -Post Debridement (cm) - Width 47.0 -Post Debridement (cm) - Depth 8.0 -Total Square (Post) (cm) 446.50 -Area of Debridement (cm) - Length 9.5 -Area of Debridement (cm) - Width 47.0 -Total Square (Area) (cm) 446.50 -Tunneling No -Undermining/Tunneling No -Circular Undermining No -Wound/Ulcer Outcome Not Healed -Ulcer Cleansing Rinsed/ Irrigated with Saline -Foul Odor after Cleansing No -Bioengineered Tissue No -Bleeding Controlled with Pressure -Offloading No -Treatment Response Procedure Tolerated Well -Debridement - Subq, 1st 20sq cm Yes -Debridement, SubQ, ea addt'l 20sq cm 22 or part thereof [See Physician Procedure note for Specifics] Pain Scale: 0-10 Numeric [Pain] -Is Patient Pain Free? Yes Musculoskeletal: Tenderness Neurological: Cranial nerves II-XII grossly intact Psych/Mental Status: Normal Affect Debridement Note Post-Debridement Measurements/Treatment WC - Nurse 2 - General Ulcer CM Notes Start: 11/13/19 13:32 Freq: Status: Active Protocol: Activity Type Activity Date Activity User E-Sign Co-Sign Detail Recorded Client Recorded Date Recorded By Document 11/17/19 09:39 NED [id number] 11/17/19 09:46 NED 11/17/19 09:39 Wound Center Nurse 2 #1 lower abd post op -Time 09:40 -Correct Patient Yes -Correct Side, Site, Position Yes -Correct Procedure Yes -Procedure Performed Yes -Type of Procedure Debridement -Clinical Debridement Subcutaneous -Tissue Removed Subcutaneous -Post Debridement (cm) - Length 9.5 -Post Debridement (cm) - Width 47.0 -Post Debridement (cm) - Depth 8.0 -Total Square (Post) (cm) 446.50 -Area of Debridement (cm) - Length 9.5 -Area of Debridement (cm) - Width 47.0 -Total Square (Area) (cm) 446.50 -Tunneling No -Undermining/Tunneling No -Circular Undermining No -Wound/Ulcer Outcome Not Healed -Ulcer Cleansing Rinsed/ Irrigated with Saline -Foul Odor after Cleansing No -Bioengineered Tissue No -Bleeding Controlled with Pressure -Offloading No -Treatment Response Procedure Tolerated Well -Debridement - Subq, 1st 20sq cm Yes -Debridement, SubQ, ea addt'l 20sq cm 22 or part thereof Pain Scale: 0-10 Numeric Is Patient Pain Free? Yes Wound debrided: right to mid lower abdominal wound Laterality: Right Type of Debridement: Excisional debridement Anesthesia Used: 5% Lidocaine Gel Depth: Down to and including healthy tissue, in the subcutaneous layer Percentage of wound debrided: 100 Instrument Used: 7mm curette Tissue Removed: Subcutaneous tissue, slough and fat necrosis Severity: Fat Layer Exposed Amount of bleeding with debridement: Moderate Bleeding Controlled with: Pressure, Compression and gauze, Silver Nitrate - Patient was waiting for his ride when the nurse stated that he bled through his dressing. He had two areas that were bleeding that required silver nitrate. Once the bleeding was stopped, new gauze was packed into the wound. Patient tolerated procedure well Assessment/Plan Active Problems (Last Reviewed 07/19/19 @ 22:[address] Anthony Pisano MD) Open wound, abdominal wall, lateral (Chronic) Acute renal failure (Acute) Hyperkalemia (Acute) Lymphedema (Chronic) painful lymphedema lower abdominal wall Intertrigo (Chronic) abdominal wall skin crease intertrigo Panniculitis (Chronic) Abdominal panniculus, symptomatic (Chronic) Diastolic heart failure (Chronic) Assessment: 1. Massive abdominal panniculus with panniculitis. 2. Necrotizing soft tissue infection. 3. Recent weight loss. 4. Abdominal wall skin crease intertrigo. 5. Painful lymphedema lower abdominal wall. 6. Lumbar back pain. 7. History of laparoscopic ventral hernia repair with mesh. 8. History of DVT. 9. s/p surgical preparation right abdominal wall with excisional debridement skin, subcutaneous tissue, and fascia necrotizing soft tissue infection (731 cm2) and abdominal panniculectomy. Plan: On 10/21/19 patient had surgery for 1. Surgical preparation right abdominal wall with excisional debridement skin, subcutaneous tissue, and fascia necrotizing soft tissue infection (731 cm2). 2. Abdominal panniculectomy. He was discharged home on 10/23/19 with a wound VAC. Prealbumin 24.6 from 10/20/19. Patient was having with issues with copious amounts of drainage and difficulty dealing with the wound at home. He was admitted on 11/03/19. Wound cultures from 11/03/19 were positive for Enterobacter cloacae, Enterococcus falcalis and Proteus mirabilis. He was placed on IV Zosyn and Vancomycin. He was discharged on 11/05/19 to [facility] with a PICC line and Zosyn and a wound VAC management. Wound Care: Wound VAC. Follow up 3 weeks. [id number]: [id number] Global Visit
== END 2019-11-24 23:59 ==
LOC: WC 08:30
PROVIDERS: PCP Family Medicine Geriatric Medicine; Visit Provider Surgery
DX: M79.3 Panniculitis, unspecified (principal); S31.109A Unspecified open wound of abdominal wall, unspecified quadrant without penetration into peritoneal cavity, initial encounter; T81.41XA Infection following a procedure, superficial incisional surgical site, initial encounter; I96 Gangrene, not elsewhere classified; E65 Localized adiposity; R63.4 Abnormal weight loss; L30.4 Erythema intertrigo; M54.5 Low back pain; I89.0 Lymphedema, not elsewhere classified; Z82.49 Family history of ischemic heart disease and other diseases of the circulatory system; Z86.718 Personal history of other venous thrombosis and embolism; Z90.49 Acquired absence of other specified parts of digestive tract; Z91.040 Latex allergy status; I50.32 Chronic diastolic (congestive) heart failure; J44.9 Chronic obstructive pulmonary disease, unspecified; F32.9 Major depressive disorder, single episode, unspecified; F41.9 Anxiety disorder, unspecified; E78.5 Hyperlipidemia, unspecified; I11.0 Hypertensive heart disease with heart failure; G47.33 Obstructive sleep apnea (adult) (pediatric); M06.9 Rheumatoid arthritis, unspecified; I42.9 Cardiomyopathy, unspecified; I45.6 Pre-excitation syndrome; I48.91 Unspecified atrial fibrillation
CPT/HCPCS: 11042; 11045; 99214; G0463

== ENCOUNTER 2019-11-17 19:24 | Inpatient (IN) | payer MEDICARE, MEDICAID, SELFPAY ==
[2019-11-17] VITALS (8 sets, daily range): BP systolic 70–160; BP diastolic 56–148; PULSE 45–86; RESP 17–20; TEMP 35.8–36.8; O2SAT 93–100; BMI 62.3; BMI 63.4; BMI 63.1; BMI 63.2
--- NOTE | 2019-11-17 20:04 | EKG12_ITS ---
Test Reason : CHEST PAIN Blood Pressure : / mmHG Vent. Rate : 093 BPM Atrial Rate : 093 BPM P-R Int : 080 ms QRS Dur : 116 ms QT Int : 468 ms P-R-T Axes : -17 181 082 degrees QTc Int : 581 ms Atrial fibrillation with short DC with Fusion complexes Lateral infarct , age undetermined Inferior-posterior infarct , age undetermined Prolonged QT Abnormal ECG When compared with ECG of 17-NOV-2019 20:52, MANUAL COMPARISON REQUIRED, DATA IS UNCONFIRMED Confirmed by JAMAL KINNEY, SHIELA ([id number]), dictionary editor EDVIN VAN ([id number]) on 11/24/2019 1:44:06 PM Referred By: THUAN Confirmed By:LB BERRY MD
--- NOTE | 2019-11-17 20:04 | CT_ITS ---
STUDY: CT BRAIN WITHOUT CONTRAST REASON FOR EXAM: Male, 59 years old. CONFUSION,AMS. Hx of COPD, afib, HTN, HLD and rheumatoid arthritis RADIATION DOSAGE (If Supplied By Facility): CTDIvol = ( 44.99 ) mGy, DLP = ( 931.09 ) mGycm TECHNIQUE: Transaxial CT imaging of the brain was performed without administration of intravenous contrast material. Individualized dose optimization techniques were used for this CT. Being hardening artifact seen in the posterior fossa limiting evaluation. COMPARISON: Head CT dated JULY 12, 2011 FINDINGS: Normal soft tissue structures. There is hyperostosis frontalis internus. There is mild cerebral atrophy with widening of the extra-axial spaces and ventricular dilatation. Normal white matter tracts of the cerebral hemispheres. Normal basal ganglia and thalami. No gross abnormality seen in the posterior fossa. There is no intracranial hemorrhage. There are no findings of an acute ischemic infarction. Normal visualized paranasal sinuses. CT/Brain/Head without Contrast IMPRESSION: Chronic involutional changes of the brain. Electronically Signed: Giuseppe Hernandez MD at 21:27 EDT , Service support ,
[2019-11-17] MEDS: 0.9% Normal Saline 1,000 ML 999 ML IV ×2 (20:30→23:06)
--- NOTE | 2019-11-17 20:52 | EKG12_ITS ---
Test Reason : BRADYCARDIA Blood Pressure : / mmHG Vent. Rate : 076 BPM Atrial Rate : 258 BPM P-R Int : 000 ms QRS Dur : 004 ms QT Int : 186 ms P-R-T Axes : 000 000 148 degrees QTc Int : 209 ms Atrial fibrillation Indeterminate axis Pulmonary disease pattern Nonspecific ST and T wave abnormality Abnormal ECG When compared with ECG of 20-OCT-2019 15:35, Current undetermined rhythm precludes rhythm comparison, needs review Nonspecific T wave abnormality has replaced inverted T waves in Anterior leads Confirmed by JAMAL KINNEY, SHIELA ([id number]), photography editor BRYAN POTTS ([id number]) on 12/08/2019 2:32:36 PM Referred By: DR ORTIZ Confirmed By:LB BERRY MD
[2019-11-17 21:02] LABS: Absolute Lymphocyte Count 0.43 X10^3/uL (0.83-4.51); Absolute Neutrophil Count 9.2 X10^3/uL (2.0-7.7); Basophil# 0.03 X10^3/uL; Basophil% 0.3 % (0-1); Eosinophil# 0.25 X10^3/uL; Eosinophils% 2.3 % (0-5); Hematocrit 25.4 % (40-54); Hemoglobin 8.1 g/dL (13.0-16.5); Lymphocyte # 0.43 X10^3/ul (4.0); Lymphocyte % 3.9 % (19-41); Mean Corp Hgb Conc 31.9 g/dL (32-36); Mean Corpuscular Volume 106.7 fL (80-94); Mean Platelet Vol. 9.8 fl (6.2-12.0); Monocyte# 0.99 X10^3/uL; Monocyte% 9.1 % (0-10); NRBC Flagged by Analyzer 0 % (0-5); Neutrophil # 9.15 X10^3/uL (2.7-7.7); Neutrophil % 83.9 % (47-70); POSITIVE DIFFERENTIAL YES; Platelet Count 258 K/mm3 (150-450); RBC Distribution Width CV 14.8 % (11.6-14.6); RBC Distribution Width SD 55.9 fl (35.1-43.9); Red Blood Count 2.38 M/mm3 (4.6-6.2); White Blood Count 10.9 K/mm3 (4.4-11.0)
[2019-11-17 21:09] LABS: Differential Indicated SCAN CRITERIA MET
--- NOTE | 2019-11-17 21:10 | RAD_ITS ---
STUDY: X-RAY CHEST REASON FOR EXAM: Male, 59 years old. HX OF HTN, COPD, CHF, PACEMAKER. TECHNIQUE: Single AP portable view of the chest. COMPARISON: November 03 2019 FINDINGS: Moderate cardiomegaly is unchanged from the prior study. Left chest cardiac device and lead are both stable. Chronic pulmonary vascular congestion and mild edema reidentified. No visualized consolidation. Stable osseous structures. Right-sided PICC line is stable. RAD/Chest 1 View (Portable) IMPRESSION: Chronic CHF Electronically Signed: Giuseppe Hernandez MD at 21:47 EDT , Service support ,
[2019-11-17 21:14] LABS: International Normalized Ratio 1.3; Prothrombin Time (Protime)PT. 15.7 SECONDS (11.7-14.9)
[2019-11-17 21:15] LABS: Partial Thromboplast Time 32.8 Seconds (24.1-36.2)
[2019-11-17 21:20] LABS: Lactic Acid 0.8 mmol/L (0.4-1.9)
[2019-11-17 21:25] LABS: Bacteria 0 SEEN /hpf (None Seen); Mucous, Urine 0 SEEN /hpf (<or=2+); Red Blood Cells-Urine 0 SEEN /hpf (0-5); Squamous Epithelial Cells - UA 0 SEEN /hpf (0-5)
[2019-11-17 21:43] LABS: Color, Urine Yellow (Yellow); Glucose, Dipstick Normal (Normal); Ketone-Dipstick 5 mg/dl (Negative); Leukocyte Esterase-Dipstick 25 /ul (Negative); Nitrite-Dipstick Negative (Negative); Occult Blood-Urine Negative /ul (Negative); Protein-Dipstick 30 mg/dl (Negative); Specific Gravity, Urine 1.015 (1.002-1.030); Urine Bilirubin Dipstick Negative (Negative); Urine Clarity Sl. Cloudy (Clear); Urine Urobilinogen Normal (Normal)
[2019-11-17 21:44] LABS: Anisocytosis 1+; Platelet Estimate ADEQUATE (ADEQ); Red Cell Morphology N CHROM NORMAL (NORM C&C)
[2019-11-17 21:59] LABS: Amorphous Sediment 1+; White Blood Cells 0-5 SEEN /hpf (0-5)
[2019-11-17 22:14] LABS: ALB/GLOB Ratio 0.6 RATIO (0.9-2.4); AST(SGOT) 20 U/L (15-37); Alanine Aminotransfer ALT/SGPT 18 U/L (16-61); Albumin, Serum 2.5 g/dL (3.2-5.0); Alkaline Phosphatase 107 U/L (45-117); Anion Gap 12 (5-15); BUN 146 mg/dL (7-18); BUN/Creat Ratio 11.8 RATIO (10-20); Chloride 104 mmol/L (98-107); EST Glomerular Filtration Rate 4 mL/min (>60); Est Glom Filt Rate - Afr Amer 5 mL/min (>60); Estimated Creatinine Clearance 5.79 ml/min; Globulin 4.4 g/dL (2.2-4.2); Glucose 104 mg/dL (74-106); Potassium 6.4 mmol/L (3.5-5.1); Protein, Total 6.9 g/dL (6.4-8.2); Sodium Level 132 mmol/L (136-145)
--- NOTE | 2019-11-17 22:39 | HP.PCM_ITS ---
Problem List (1) Acute renal failure Status: Acute (2) Hyperkalemia Status: Acute (3) Open wound, abdominal wall, lateral Status: Chronic (4) History of ventral hernia repair Status: Chronic Comment: with mesh in last [address] [facility] (5) Lymphedema Status: Chronic Comment: painful lymphedema lower abdominal wall (6) Presence of implantable cardioverter-defibrillator (ICD) Status: Chronic (7) History of radiofrequency ablation (RFA) procedure for cardiac arrhythmia Status: Chronic Comment: 2007 @ [facility] per Dr. Lange, 2009 @ [facility] for WPW with success. (8) DDD (degenerative disc disease), lumbosacral Status: Chronic (9) COPD (chronic obstructive pulmonary disease) Status: Chronic (10) Anxiety and depression Status: Chronic (11) History of DVT (deep vein thrombosis) Status: Chronic (12) Diastolic heart failure Status: Chronic (13) TEX (obstructive sleep apnea) Status: Chronic (14) Hyperlipidemia Status: Chronic (15) Benign essential hypertension Status: Chronic (16) Rheumatoid arthritis Status: Chronic (17) Cardiomyopathy Status: Chronic (18) Super obesity Status: Chronic History of Present Illness Date of Admission: 11/17/19 Chief Complaint: [facility] at jail The patient is a 59 year old patient who resides in a long-term care facility with ongoing care for abdominal wound that has a wound VAC attached to it with IV antibiotics ongoing as therapy, history of COPD, atrial fibrillation, hypertension, hyperlipidemia, rheumatoid arthritis who presents to the ER from the long-term care facility due to confused state. The patient is a questionable historian due to his ability to become confused however during my evaluation he was coherent and denied any chest pain shortness of breath, nausea vomiting or diarrhea at present time. Laboratory studies reveal a white blood cell count of 10.9, hemoglobin 8.1, hematocrit 25.4, platelets 258, sodium 132, potassium markedly elevated 6.4, chloride 104, bicarb 16, BUN 146, creatinine 12.4, blood sugar 104, troponin negative, UA within normal limits, CT head negative for hemorrhage or acute finding and chest x-ray was within normal limits. The patient has no previous history of hyperkalemia or renal failure and will be admitted to the ICU as a result. He was receiving treatment for his hyperkalemia including insulin, dextrose and calcium in the emergency room and will need nephrology consult in the morning. Past Medical History Past Medical History (Chronic Problems): Chronic Problems (Last Reviewed 07/19/19 @ 22:[address] Anthony Pisano MD) Open wound, abdominal wall, lateral (Chronic) History of ventral hernia repair (Chronic) with mesh in last [address] [facility] Lumbar back pain (Chronic) from weight of massive abdominal panniculus Ventral hernia (Chronic) laparoscopic repair 2 years ago with mesh Lymphedema (Chronic) painful lymphedema lower abdominal wall Intertrigo (Chronic) abdominal wall skin crease intertrigo Recent weight loss (Chronic) about 100 lbs Panniculitis (Chronic) Abdominal panniculus, symptomatic (Chronic) Presence of implantable cardioverter-defibrillator (ICD) (Chronic) History of radiofrequency ablation (RFA) procedure for cardiac arrhythmia (Chronic) 2007 @ [facility] per Dr. Lange, 2009 @ [facility] for WPW with success. 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) Rotator cuff tear (Chronic) COPD (chronic obstructive pulmonary disease) (Chronic) Anxiety and depression (Chronic) History of DVT (deep vein thrombosis) (Chronic) Diastolic heart failure (Chronic) TEX (obstructive sleep apnea) (Chronic) Hyperlipidemia (Chronic) Benign essential hypertension (Chronic) Rheumatoid arthritis (Chronic) dilated right ventricle (Chronic) Cardiomyopathy (Chronic) Super obesity (Chronic) WPW (Fcuni-Obrdbknqh-Tcpjx syndrome) (Chronic) Atrial fibrillation (Chronic) Medical History: Medical History (Last Reviewed 07/19/19 @ 22:[address] Anthony Pisano MD) Lumbar back pain (Chronic) M54.5 from weight of massive abdominal panniculus Ventral hernia (Chronic) K43.9 laparoscopic repair 2 years ago with mesh Lymphedema (Chronic) I89.0 painful lymphedema lower abdominal wall Intertrigo (Chronic) L30.4 abdominal wall skin crease intertrigo Recent weight loss (Chronic) R63.4 about 100 lbs Abdominal panniculus, symptomatic (Chronic) E65 COPD (chronic obstructive pulmonary disease) (Chronic) J44.9 History of DVT (deep vein thrombosis) (Chronic) Z86.718 Diastolic heart failure (Chronic) I50.30 TEX (obstructive sleep apnea) (Chronic) G47.33 Hyperlipidemia (Chronic) E78.5 Benign essential hypertension (Chronic) I10 Rheumatoid arthritis (Chronic) M06.9 Cardiomyopathy (Chronic) I42.9 Super obesity (Chronic) E66.9 Acute exacerbation of CHF (congestive heart failure) (Acute) I50.9 WPW (Jyjrw-Knojhwicy-Pbnqw syndrome) (Chronic) I45.6 Atrial fibrillation (Chronic) I48.91 Arthritis M19.90 Cyst of breast N60.09 History of ulceration Z87.898 Osteoarthritis M19.90 Pancreatitis K85.90 Mfvkm-Xbqyzgbvw-Yrgbk (WPW) syndrome I45.6 Allergies latex Allergy (Verified 11/17/19 19:31) Rash warfarin sodium [From Coumadin] Adverse Reaction (Verified 11/17/19 19:31) Other caused 2 holes in lungs and chest, advised to never take again Home Medications: Ambulatory Orders Medication Instructions Recorded Bupropion HCl 100 mg PO DAILY 05/02/14 Nitroglycerin (INPATIENT USE) 0.4 mg SUBLINGUAL Q5M PRN 07/17/14 [Nitrostat] Cholecalciferol (Vitamin D3) 3,000 unit PO DAILY 05/08/18 [Vitamin D3] Cyanocobalamin (Vitamin B-12) 1,000 mcg PO DAILY 05/08/18 [Vitamin B-12] Multivitamin with Minerals 2 ea PO DAILY 05/08/18 [Multiple Vitamin] Sacubitril/Valsartan 97-103 mg 1 tab PO BID 05/08/18 [Entresto 97 mg-103 mg Tablet] Amiodarone HCl 400 mg PO DAILY 11/05/18 Sertraline HCl [Zoloft] 50 mg PO BID 11/05/18 Furosemide [Lasix] 40 mg PO DAILY 01/27/19 carvedilol 12.5 mg tablet 6.25 mg PO BID tab 05/22/19 levothyroxine 25 mcg tablet 25 mcg PO DAILY 05/22/19 oxybutynin chloride 15 mg 15 mg PO DAILY 05/22/19 tablet,extended release 24 hr spironolactone 25 mg tablet 25 mg PO BID tab 05/22/19 tizanidine 4 mg tablet 4 mg PO BID 05/22/19 Senna Plus Tablet 8.6 mg PO BID 10/20/19 Docusate Sodium [Colace] 100 mg PO BID #0 cap 10/23/19 Zolpidem Tartrate [Ambien] 5 mg PO QHS tab 10/23/19 Acetaminophen [Tylenol Tablet] 650 mg PO Q4H PRN PRN tab 11/05/19 Diazepam [Valium] 5 mg PO 4X/DAY PRN PRN #30 tab 11/05/19 Enoxaparin [Lovenox] 40 mg SUBCUT DAILY syringe 11/05/19 Ipratropium/Albuterol Sulfate 3 ml INHALATION Q4H PRN ampul.neb 11/05/19 [Duoneb] Danish (unflavored) [Danish Packet] 1 packet PO BIDCM packet 11/05/19 Lorazepam [Ativan] 0.5 mg PO BID #30 tab 11/05/19 Nystatin Powder [Mycostatin Powder] 1 applic TOPICAL TID bottle 11/05/19 Piperacil/Tazobactam [Zosyn] 3.375 gm IV Q12H 14 Days #28 vial 11/05/19 proMETHazine tablet [Phenergan 25 mg PO Q4H PRN PRN tab 11/05/19 tablet] Surgical History: Surgical History (Last Reviewed 07/19/19 @ 22:[address] Anthony Pisano MD) History of ventral hernia repair (Chronic) Z98.890, Z87.19 with mesh in last [address] [facility] Presence of implantable cardioverter-defibrillator (ICD) (Chronic) Z95.810 History of radiofrequency ablation (RFA) procedure for cardiac arrhythmia (Chronic) Z98.890 2007 @ [facility] per Dr. Lange, 2009 @ [facility] for WPW with success. History of left heart catheterization (Chronic) Onset Date: 11/08/18 Z98.890 History of cardiac radiofrequency ablation Z98.890 [id number] History of cholecystectomy Z90.49 History of gastric surgery Z98.890 Surgical History: cholecystectomy, herniorrhaphy, - - Cardiac ablation x 2, Defib placement, Cholecystectomy, LLE surgery s/p trauma w/ hardware removal later, gastric sleeve surgery Psychiatric History: Anxiety, Depression Smoking Status: Never smoker - *Family History Maternal Family History: Family History (Last Reviewed 07/19/19 @ 22:[address] Anthony Pisano MD) Sister Arthritis Brother Psychiatric care History Items: Heart Disease, Hypertension Paternal Family History: Family History (Last Reviewed 07/19/19 @ 22:[address] Anthony Pisano MD) Sister Arthritis Brother Psychiatric care History Items: Heart Disease, Hypertension Review of Systems Constitutional: Denies: Chills, Fever, Weight Change HEENT: Denies: Head Aches, Sinus Congestion, Sinus Drainage Cardiovascular: Denies: Chest Pain, Palpitations Respiratory: Denies: Cough, Shortness of breath at rest, Sputum production Gastrointestinal: Denies: Abdominal Pain, Nausea, Vomiting Genitourinary: Denies: Dysuria Musculoskeletal: Denies: Joint Pain, Joint Tenderness Skin: Reports: Wounds. Denies: Rash Neurological: Reports: Confusion. Denies: Focal weakness, Numbness, Tingling Psychiatric: Denies: Anxiety, Depression, Homicidal Ideations, Suicidal Ideations Hematologic/ Lymphatic: Denies: Easy Bruising, Easy Bleeding VTE Information - Inpt Only VTE Present on Admission: No VTE Mechan Device Prophylaxis: SCD's VTE Pharm Prophylaxis ordered?: No Patient Problems: Active and Suspected Problems (Last Reviewed 07/19/19 @ 22:[address] Anthony Pisano MD) Acute renal failure (Acute) Hyperkalemia (Acute) - Physical Exam Vitals/I&O's: Vital Signs Temp Pulse Resp BP Pulse Ox 97.8 F 47 L 20 H 83/66 L 94 11/17/19 22:08 11/17/19 22:08 11/17/19 22:08 11/17/19 22:08 11/17/19 22:08 Oxygen Flow Rate (L/min) 3 Oxygen Delivery Method Nasal Cannula Weight: 393 lb 4.874 oz Body Mass Index (BMI) 63.4 Intake and Output for Last 24 Hours 11/15/19 11/16/19 11/17/19 23:59 23:59 23:59 Intake Total 1000 / 1000 Balance 1000 / 1000 General: Alert, Cooperative, Confused HEENT: Atraumatic, PERRLA, EOMI, Normocephalic Neck: Supple Lungs: Clear to auscultation, Normal air movement, No rhonchi, No wheeze, No rales Cardiovascular: Regular rate, Normal S1, Normal S2, No murmurs Abdomen: Bowel Sounds Present, Soft, Non Tender, Obese, - - wound vac applied to lower paniculectomy site Extremities: No edema, Capillary Refill Less than 3 Seconds Skin: No rashes, Ulcer/ Wound - abdominal wound Neurological: Neuro grossly intact Psych/Mental Status: Normal Affect, Appropriate Laboratory Results 11/17/19 20:28: Urine Color Yellow, Urine Clarity Sl. Cloudy, Urine pH 5.0, Ur Specific Gonzales 1.015, Urine Protein 30 H, Urine Glucose (UA) Normal, Urine Ketones 5 H, Urine Occult Blood Negative, Urine Nitrite Negative, Urine Bilirubin Negative, Urine Urobilinogen Normal, Ur Leukocyte Esterase 25 H, Urine RBC 0 SEEN, Urine WBC 0-5 SEEN, Ur Squamous Epith Cells 0 SEEN, Amorphous Sediment 1+, Urine Bacteria 0 SEEN, Urine Mucus 0 SEEN 11/17/19 20:32: WBC 10.9, RBC 2.38 L, Hgb 8.1 L, Hct 25.4 L, MCV 106.7 H, MCH 34.0 H, MCHC 31.9 L, RDW Std Deviation 55.9 H, RDW Coeff of Florina 14.8 H, Plt Count 258, MPV 9.8, Immature Gran % (Auto) 0.500, Neut % (Auto) 83.9 H, Lymph % (Auto) 3.9 L, Saunders % (Auto) 9.1, Eos % (Auto) 2.3, Baso % (Auto) 0.3, Absolute Neuts (auto) 9.2 H, Absolute Lymphs (auto) 0.43 L, Nucleated RBC % 0, Differential Comment , Platelet Estimate ADEQUATE, RBC Morphology N CHROM, Anisocytosis 1+ 11/17/19 20:32: PT 15.7 H, INR 1.3, APTT 32.8 11/17/19 20:32: Sodium 132 L, Potassium 6.4 H*, Chloride 104, Carbon Dioxide 16.0 L, Anion Gap 12, BUN 146 H*, Creatinine 12.40 H*, Estim Creat Clear Calc 5.79, Est GFR (MDRD) Af Amer 5 L, Est GFR (MDRD) Non-Af 4 L, BUN/Creatinine Ratio 11.8, Glucose 104, Calcium 9.0, Total Bilirubin 0.50, AST 20, ALT 18, Alkaline Phosphatase 107, Troponin I < 0.015, Total Protein 6.9, Albumin 2.5 L, Globulin 4.4 H, Albumin/Globulin Ratio 0.6 L 11/17/19 20:32: Lactic Acid 0.8 Current Medications Sodium Chloride () 1,000 mls @ 999 mls/hr IV .Q1H1M ONE Stop: 11/17/19 23:18 Assessment/Plan All Active Problems (Last Reviewed 07/19/19 @ 22:[address] Anthony Pisano MD) Wound infection after surgery (Acute) Acute renal failure (Acute) Hyperkalemia (Acute) Acute exacerbation of CHF (congestive heart failure) (Acute) Chronic Problems (Last Reviewed 07/19/19 @ 22:[address] Anthony Pisano MD) Open wound, abdominal wall, lateral (Chronic) History of ventral hernia repair (Chronic) with mesh in last [address] [facility] Lumbar back pain (Chronic) from weight of massive abdominal panniculus Ventral hernia (Chronic) laparoscopic repair 2 years ago with mesh Lymphedema (Chronic) painful lymphedema lower abdominal wall Intertrigo (Chronic) abdominal wall skin crease intertrigo Recent weight loss (Chronic) about 100 lbs Panniculitis (Chronic) Abdominal panniculus, symptomatic (Chronic) Presence of implantable cardioverter-defibrillator (ICD) (Chronic) History of radiofrequency ablation (RFA) procedure for cardiac arrhythmia (Chronic) 2007 @ [facility] per Dr. Lange, 2009 @ [facility] for WPW with success. 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) Rotator cuff tear (Chronic) COPD (chronic obstructive pulmonary disease) (Chronic) Anxiety and depression (Chronic) History of DVT (deep vein thrombosis) (Chronic) Diastolic heart failure (Chronic) TEX (obstructive sleep apnea) (Chronic) Hyperlipidemia (Chronic) Benign essential hypertension (Chronic) Rheumatoid arthritis (Chronic) dilated right ventricle (Chronic) Cardiomyopathy (Chronic) Super obesity (Chronic) WPW (Zmpmt-Dbcbnpitl-Wqgvh syndrome) (Chronic) Atrial fibrillation (Chronic) Plan 1. Acute renal failure?admit patient to ICU, consult nephrology Dr. Collado in the a.m. repeat BMP in the morning, will need close supervision the ICU due to confused state patient continues to remove his clothing but then is followed by lucid moments worries amenable to being talked to and conversant. 2. Hyperkalemia?patient treated with insulin and dextrose along with calcium in the emergency room will reevaluate potassium with a BMP in the morning 3. Chronic wound and panniculitis?obtain records [facility], continue wound VAC to suction 4. Lipidemia?continue statin 5. anxiety depression?continue routine medication 6. Hypertension?currently hypotensive continue holding medication for now. 7. DVT prophylaxis?SCDs Inpatient E&M: [id number] Init Hosp L3
--- NOTE | 2019-11-17 22:56 | ED.VISSUMM ---
- ER Visit Summary Date of Service: 11/17/19 Chief Complaint: Confused History of Present Illness: The patient is a 59 M who presents from [facility]. Patient is confused and has abnormal labs. He has no specific complaints. Physical Examination: Afebrile. Patient has some blood pressures in the 80s and 90s systolic. Heart rate in the 50s and 60s. Otherwise vitals unremarkable. Alert, cooperative. Skin is pale. Heart bradycardic but regular. Lungs are diminished. He has a right lateral abdominal wound VAC. Test Results: EKG shows low voltage. I suspect this is atrial fibrillation at a rate of 60. Difficult to interpret. Chest x-ray shows CHF. CT brain shows chronic changes. Hemoglobin is trending down to 8.1 today. Potassium 6.4. BUN 146, creatinine 12.4 which are acutely abnormal from baseline. Coags unremarkable. Urinalysis unremarkable. Troponin normal. Lactate normal. Cultures pending. Emergency Department Course and Treatment: Patient was placed on a monitor. Blood pressures in the 80s. I reviewed his vitals from the his multiple visits over the past month. This is stable. His heart rate is in the 40s, 50s, and 60s, also stable. He seems to be mentating appropriately and has palpable pulses. He was treated with fluid hydration. Labs show worsening anemia, new hyperkalemia and worsening kidney function. Patient received additional fluids. He was treated with calcium, dextrose, and insulin. Remainder of his work-up was noncontributory. Hospitalist was contacted and will admit for further care. Treatment Plan: As above Disposition: ICU Impression: Encephalopathy, anemia, hyperkalemia, acute kidney injury This note was generated with [employer] dictation software. It may contain incorrect words, spelling, and punctuation that were not noted in review of the chart prior to signing ED Disposition - Plan for ED Patient: Referrals: Mk Chicas MD [Primary Care Provider] -
[2019-11-17] MEDS: Dextrose 50%-Water 25 GM/50 ML DISP.SYRIN IV (23:06)
[2019-11-17] MEDS: Insulin Lispro 5 UNIT in Syringe 0 ML 3 UNIT IV (23:10)
[2019-11-17] MEDS: Calcium Gluconate 1 GM/10 ML Vial IV (23:10)
[2019-11-18] VITALS (56 sets, daily range): BP systolic 48–116; BP diastolic 18–70; PULSE 30–96; RESP 16–24; TEMP 35.6–37.6; O2SAT 93–100
[2019-11-18] MEDS: 0.9% Normal Saline 1,000 ML 125 ML IV (00:15)
[2019-11-18] MEDS: Sodium Bicarbonate 8.4% 50 ML Syringe 50 MEQ IV ×2 (00:57)
[2019-11-18] MEDS: Sodium Polystyrene Sulfonate 15 GM/60 ML UDC 45 GM PO (00:58)
[2019-11-18] MEDS: 0.9% Normal Saline 1,000 ML 500 ML IV (02:18)
--- NOTE | 2019-11-18 02:24 | NURSING ---
When pt. arrived to ICU, unable to get an accurate BP on pt. Tried repositioning BP cuff several times.
[2019-11-18] MEDS: 0.9% Saline Lock 10 ML Syringe IV ×3 (02:57→08:03)
[2019-11-18 04:02] LABS: Anion Gap 15 (5-15); BUN 139 mg/dL (7-18); BUN/Creat Ratio 11.5 RATIO (10-20); Calcium,Total 8.7 mg/dL (8.5-10.1); Chloride 106 mmol/L (98-107); EST Glomerular Filtration Rate 5 mL/min (>60); Est Glom Filt Rate - Afr Amer 6 mL/min (>60); Estimated Creatinine Clearance 5.93 ml/min; Glucose 89 mg/dL (74-106); Potassium 5.5 mmol/L (3.5-5.1); Sodium Level 139 mmol/L (136-145)
[2019-11-18] MEDS: Levothyroxine 25 MCG TABLET PO (05:24)
--- NOTE | 2019-11-18 06:00 | PCM.CON.CC ---
Reason for Consult Date of Consultation: 11/18/19 Reason for Consultation: Metabolic encephalopathy/acute kidney injury History of Present Illness: The patient is a 59-year-old male, with a history as outlined below, who presented to the emergency department on November 16 from [facility] with altered mentation and acute kidney injury. The patient was recently discharged from the hospital after spending several days admitted in mid October with an open abdominal wound which required IV antimicrobials. The patient has a medical history significant for cardiomyopathy status post ICD placement, paroxysmal atrial fibrillation, Tzjqx-Mjlgoldbb-Lspqx status post 2 ablation procedures, questionable TEX and COPD. Surface echocardiogram from October 2018 revealed moderate to severe global hypokinesis of the LV with an ejection fraction of 35%. On presentation to the emergency department, the patient was noted to be afebrile and hemodynamically stable. He was noted to be bradycardic with a heart rate in the 40s. Laboratory evaluation revealed a hemoglobin of 8.1, which is down several grams from September and October 2019. Chemistry profile was notable for a sodium of 132, potassium of 6.4, bicarbonate of 16, BUN of 146 and creatinine of 12.4. At the beginning of October, the patient had a creatinine noted to be around 2.5. Troponin was negative. Lactate was within normal limits. Head CT revealed chronic involutional changes of the brain. Chest x-ray revealed cardiomegaly and scant pulmonary vascular congestion. The patient's hyperkalemia was medically managed. He was admitted to the medical intensive care unit for further management. The patient received a total of 3 L of supplemental IV fluids and was subsequently placed on vasopressor therapy due to hemodynamic instability. Over the course of the night, the patient required an escalation in vasopressor support and is now receiving both Levophed and vasopressin. Stress dose steroids were initiated early this morning. Orders for antibiotics were also placed early this morning. ABG obtained this morning revealed a pH of 7.23 with a corresponding PCO2 of 35 and PO2 of 80. Bicarbonate was noted to be 14.8. When I spoke to the patient at the bedside this morning, he did report the presence of a nonproductive cough along with some mild abdominal discomfort, which has been chronic. Nevertheless, he did report the presence of anosmia and ageusia. Past Medical History Past Medical History (Chronic Problems): Chronic Problems (Last Reviewed 07/19/19 @ 22:[address] Anthony Pisano MD) Open wound, abdominal wall, lateral (Chronic) History of ventral hernia repair (Chronic) with mesh in last 2 years at [facility] Lumbar back pain (Chronic) from weight of massive abdominal panniculus Ventral hernia (Chronic) laparoscopic repair 2 years ago with mesh Lymphedema (Chronic) painful lymphedema lower abdominal wall Intertrigo (Chronic) abdominal wall skin crease intertrigo Recent weight loss (Chronic) about 100 lbs Panniculitis (Chronic) Abdominal panniculus, symptomatic (Chronic) Presence of implantable cardioverter-defibrillator (ICD) (Chronic) History of radiofrequency ablation (RFA) procedure for cardiac arrhythmia (Chronic) 2007 @ [facility] per Dr. Lange, 2009 @ [facility] for WPW with success. 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) Rotator cuff tear (Chronic) COPD (chronic obstructive pulmonary disease) (Chronic) Anxiety and depression (Chronic) History of DVT (deep vein thrombosis) (Chronic) Diastolic heart failure (Chronic) TEX (obstructive sleep apnea) (Chronic) Hyperlipidemia (Chronic) Benign essential hypertension (Chronic) Rheumatoid arthritis (Chronic) dilated right ventricle (Chronic) Cardiomyopathy (Chronic) Super obesity (Chronic) WPW (Ybuvw-Zztpqfnid-Fitqa syndrome) (Chronic) Atrial fibrillation (Chronic) Medical History: Medical History (Last Reviewed 07/19/19 @ 22:[address] Anthony Pisano MD) Lumbar back pain (Chronic) M54.5 from weight of massive abdominal panniculus Ventral hernia (Chronic) K43.9 laparoscopic repair 2 years ago with mesh Lymphedema (Chronic) I89.0 painful lymphedema lower abdominal wall Intertrigo (Chronic) L30.4 abdominal wall skin crease intertrigo Recent weight loss (Chronic) R63.4 about 100 lbs Abdominal panniculus, symptomatic (Chronic) E65 COPD (chronic obstructive pulmonary disease) (Chronic) J44.9 History of DVT (deep vein thrombosis) (Chronic) Z86.718 Diastolic heart failure (Chronic) I50.30 TEX (obstructive sleep apnea) (Chronic) G47.33 Hyperlipidemia (Chronic) E78.5 Benign essential hypertension (Chronic) I10 Rheumatoid arthritis (Chronic) M06.9 Cardiomyopathy (Chronic) I42.9 Super obesity (Chronic) E66.9 Acute exacerbation of CHF (congestive heart failure) (Acute) I50.9 WPW (Loebt-Eufqwtled-Lvomf syndrome) (Chronic) I45.6 Atrial fibrillation (Chronic) I48.91 Arthritis M19.90 Cyst of breast N60.09 History of ulceration Z87.898 Osteoarthritis M19.90 Pancreatitis K85.90 Jfynd-Ofxrabklf-Hlmai (WPW) syndrome I45.6 Allergies latex Allergy (Verified 11/17/19 19:31) Rash warfarin sodium [From Coumadin] Adverse Reaction (Verified 11/17/19 19:31) Other caused 2 holes in lungs and chest, advised to never take again Home Medications: Ambulatory Orders Medication Instructions Recorded Bupropion HCl 100 mg PO DAILY 05/02/14 Nitroglycerin (INPATIENT USE) 0.4 mg SUBLINGUAL Q5M PRN 07/17/14 [Nitrostat] Cholecalciferol (Vitamin D3) 3,000 unit PO DAILY 05/08/18 [Vitamin D3] Cyanocobalamin (Vitamin B-12) 1,000 mcg PO DAILY 05/08/18 [Vitamin B-12] Multivitamin with Minerals 2 ea PO DAILY 05/08/18 [Multiple Vitamin] Sacubitril/Valsartan 97-103 mg 1 tab PO BID 05/08/18 [Entresto 97 mg-103 mg Tablet] Amiodarone HCl 400 mg PO DAILY 11/05/18 Sertraline HCl [Zoloft] 50 mg PO BID 11/05/18 Furosemide [Lasix] 40 mg PO DAILY 01/27/19 carvedilol 12.5 mg tablet 6.25 mg PO BID tab 05/22/19 levothyroxine 25 mcg tablet 25 mcg PO DAILY 05/22/19 oxybutynin chloride 15 mg 15 mg PO DAILY 05/22/19 tablet,extended release 24 hr spironolactone 25 mg tablet 25 mg PO BID tab 05/22/19 tizanidine 4 mg tablet 4 mg PO BID 05/22/19 Senna Plus Tablet 8.6 mg PO BID 10/20/19 Docusate Sodium [Colace] 100 mg PO BID #0 cap 10/23/19 Zolpidem Tartrate [Ambien] 5 mg PO QHS tab 10/23/19 Acetaminophen [Tylenol Tablet] 650 mg PO Q4H PRN PRN tab 11/05/19 Diazepam [Valium] 5 mg PO 4X/DAY PRN PRN #30 tab 11/05/19 Enoxaparin [Lovenox] 40 mg SUBCUT DAILY syringe 11/05/19 Ipratropium/Albuterol Sulfate 3 ml INHALATION Q4H PRN ampul.neb 11/05/19 [Duoneb] Lorazepam [Ativan] 0.5 mg PO BID #30 tab 11/05/19 Nystatin Powder [Mycostatin Powder] 1 applic TOPICAL TID bottle 11/05/19 Piperacil/Tazobactam [Zosyn] 3.375 gm IV Q12H 14 Days #28 vial 11/05/19 proMETHazine tablet [Phenergan 25 mg PO Q4H PRN PRN tab 11/05/19 tablet] Ciprofloxacin [Cipro] 250 mg PO BID 11/18/19 Multivit,Stress Formula/Zinc 1 ea PO DAILY 11/18/19 [Stress Formula with Zinc Tab] Ondansetron HCl [Zofran] 4 mg PO Q6H PRN 11/18/19 Oxycodone [Oxyir] 5 - 10 mg PO Q4H PRN PRN 11/18/19 Surgical History: Surgical History (Last Reviewed 07/19/19 @ 22:[address] Anthony Pisano MD) History of ventral hernia repair (Chronic) Z98.890, Z87.19 with mesh in last 2 years at [facility] Presence of implantable cardioverter-defibrillator (ICD) (Chronic) Z95.810 History of radiofrequency ablation (RFA) procedure for cardiac arrhythmia (Chronic) Z98.890 2007 @ [facility] per Dr. Lange, 2009 @ [facility] for WPW with success. History of left heart catheterization (Chronic) Onset Date: 11/08/18 Z98.890 History of cardiac radiofrequency ablation Z98.890 [id number] History of cholecystectomy Z90.49 History of gastric surgery Z98.890 Surgical History: cholecystectomy, herniorrhaphy, - - Cardiac ablation x 2, Defib placement, Cholecystectomy, LLE surgery s/p trauma w/ hardware removal later, gastric sleeve surgery Psychiatric History: Anxiety, Depression Smoking Status: Never smoker - *Family History Maternal Family History: Family History (Last Reviewed 07/19/19 @ 22:[address] Anthony Pisano MD) Sister Arthritis Brother Psychiatric care History Items: Heart Disease, Hypertension Paternal Family History: Family History (Last Reviewed 07/19/19 @ 22:[address] Anthony Pisano MD) Sister Arthritis Brother Psychiatric care History Items: Heart Disease, Hypertension Review of Systems Constitutional: Reports: Malaise, Fatigue Eyes: Denies: Blurred vision, Double vision HEENT: Denies: Head Aches, Sinus Congestion, Sinus Drainage Cardiovascular: Denies: Chest Pain, Palpitations Respiratory: Reports: Shortness of Breath Gastrointestinal: Reports: Abdominal Pain Genitourinary: Denies: Dysuria Musculoskeletal: Denies: Joint Pain, Joint Tenderness Skin: Reports: Wounds Neurological: Denies: Numbness, Tingling, Focal weakness Psychiatric: Denies: Anxiety, Depression, Homicidal Ideations, Suicidal Ideations Hematologic/ Lymphatic: Reports: Anemia, Hx of blood clot Patient Problems: Active and Suspected Problems (Last Reviewed 07/19/19 @ 22:[address] Anthony Pisano MD) Acute renal failure (Acute) Hyperkalemia (Acute) Objective: The patient's most recent lab work, culture data and imaging studies have all been personally reviewed. - Physical Exam Vitals/I&O's: Vital Signs Temp Pulse Resp BP Pulse Ox 97.2 F L 75 16 75/32 L 99 11/18/19 03:00 11/18/19 04:00 11/18/19 03:00 11/18/19 05:30 11/18/19 03:00 Oxygen Flow Rate (L/min) 2 Oxygen Delivery Method Nasal Cannula Weight: 391 lb 5.128 oz Body Mass Index (BMI) 63.1 Intake and Output for Last 24 Hours 11/16/19 11/17/19 11/18/19 23:59 23:59 23:59 Intake Total 1000.05 / 1000.05 2450.85 / 2450.85 Balance 1000.05 / 1000.05 2450.85 / 2450.85 General: Alert, Cooperative, No apparent distress, - - Super morbidly obese HEENT: Atraumatic, Normocephalic Oral: No Gingival or Mucosal Lesions/ Ulcerations Neck: Supple, No Nodes, Trachea Midline Lungs: Diminished Cardiovascular: Regular rate, Regular Rhythm Abdomen: Bowel Sounds Present, Soft, Obese, - - Large pannus wound noted. No purulent drainage. Extremities: No clubbing, No cyanosis, Edema Skin: Ulcer/ Wound - Present on admission Musculoskeletal: No Muscle Wasting Lymphatic: No Cervical, Supraclavicular, or Inguinal Adenopathy Neurological: Cranial nerves II-XII grossly intact, Neuro grossly intact Psych/Mental Status: Normal Affect, Appropriate Labs (Last 48 Hours) 11/17/19 11/17/19 11/17/19 20:28 20:32 20:32 WBC 10.9 RBC 2.38 L Hgb 8.1 L Hct 25.4 L MCV 106.7 H MCH 34.0 H MCHC 31.9 L RDW Std Deviation 55.9 H RDW Coeff of Florina 14.8 H Plt Count 258 MPV 9.8 Immature Gran % (Auto) 0.500 Neut % (Auto) 83.9 H Lymph % (Auto) 3.9 L [place] % (Auto) 9.1 Eos % (Auto) 2.3 Baso % (Auto) 0.3 Absolute Neuts (auto) 9.2 H Absolute Lymphs (auto) 0.43 L Nucleated RBC % 0 Differential Comment Platelet Estimate ADEQUATE RBC Morphology N CHROM Anisocytosis 1+ PT 15.7 H INR 1.3 APTT 32.8 Sodium Potassium Chloride Carbon Dioxide Anion Gap BUN Creatinine Estim Creat Clear Calc Est GFR (MDRD) Af Amer Est GFR (MDRD) Non-Af BUN/Creatinine Ratio Glucose Lactic Acid Calcium Total Bilirubin AST ALT Alkaline Phosphatase Troponin I Total Protein Albumin Globulin Albumin/Globulin Ratio Urine Color Yellow Urine Clarity Sl. Cloudy Urine pH 5.0 Ur Specific [place] 1.015 Urine Protein 30 H Urine Glucose (UA) Normal Urine Ketones 5 H Urine Occult Blood Negative Urine Nitrite Negative Urine Bilirubin Negative Urine Urobilinogen Normal Ur Leukocyte Esterase 25 H Urine RBC 0 SEEN Urine WBC 0-5 SEEN Ur Squamous Epith Cells 0 SEEN Amorphous Sediment 1+ Urine Bacteria 0 SEEN Urine Mucus 0 SEEN 11/17/19 11/17/19 11/18/19 20:32 20:32 02:54 WBC RBC Hgb Hct MCV MCH MCHC RDW Std Deviation RDW Coeff of Florina Plt Count MPV Immature Gran % (Auto) Neut % (Auto) Lymph % (Auto) [place] % (Auto) Eos % (Auto) Baso % (Auto) Absolute Neuts (auto) Absolute Lymphs (auto) Nucleated RBC % Differential Comment Platelet Estimate RBC Morphology Anisocytosis PT INR APTT Sodium 132 L 139 Potassium 6.4 H* 5.5 H Chloride 104 106 Carbon Dioxide 16.0 L 18.0 L Anion Gap 12 15 BUN 146 H* 139 H* Creatinine 12.40 H* 12.10 H* Estim Creat Clear Calc 5.79 5.93 Est GFR (MDRD) Af Amer 5 L 6 L Est GFR (MDRD) Non-Af 4 L 5 L BUN/Creatinine Ratio 11.8 11.5 Glucose 104 89 Lactic Acid 0.8 Calcium 9.0 8.7 Total Bilirubin 0.50 AST 20 ALT 18 Alkaline Phosphatase 107 Troponin I < 0.015 Total Protein 6.9 Albumin 2.5 L Globulin 4.4 H Albumin/Globulin Ratio 0.6 L Urine Color Urine Clarity Urine pH Ur Specific [place] Urine Protein Urine Glucose (UA) Urine Ketones Urine Occult Blood Urine Nitrite Urine Bilirubin Urine Urobilinogen Ur Leukocyte Esterase Urine RBC Urine WBC Ur Squamous Epith Cells Amorphous Sediment Urine Bacteria Urine Mucus 11/18/19 05:30 WBC Pending RBC Pending Hgb Pending Hct Pending MCV Pending MCH Pending MCHC Pending RDW Std Deviation Pending RDW Coeff of Florina Pending Plt Count Pending MPV Immature Gran % (Auto) Neut % (Auto) Pending Lymph % (Auto) [place] % (Auto) Eos % (Auto) Baso % (Auto) Absolute Neuts (auto) Pending Absolute Lymphs (auto) Nucleated RBC % Differential Comment Platelet Estimate RBC Morphology Anisocytosis PT INR APTT Sodium Potassium Chloride Carbon Dioxide Anion Gap BUN Creatinine Estim Creat Clear Calc Est GFR (MDRD) Af Amer Est GFR (MDRD) Non-Af BUN/Creatinine Ratio Glucose Lactic Acid Calcium Total Bilirubin AST ALT Alkaline Phosphatase Troponin I Total Protein Albumin Globulin Albumin/Globulin Ratio Urine Color Urine Clarity Urine pH Ur Specific [place] Urine Protein Urine Glucose (UA) Urine Ketones Urine Occult Blood Urine Nitrite Urine Bilirubin Urine Urobilinogen Ur Leukocyte Esterase Urine RBC Urine WBC Ur Squamous Epith Cells Amorphous Sediment Urine Bacteria Urine Mucus Clinical Impression(s) from Imaging Studies Brain CT 11/17/19 20:04 IMPRESSION: Chronic involutional changes of the brain. Electronically Signed: Giuseppe Hernandez MD at 21:27 EDT , Service support , Chest X-Ray 11/17/19 21:10 IMPRESSION: Chronic CHF Electronically Signed: Giuseppe Hernandez MD at 21:47 EDT , Service support , Current Medications Acetaminophen (Tylenol) 650 mg PO Q4H PRN PRN PRN Reason: fever, pain 1-01/02 Amiodarone HCl (Cordarone) 400 [facility] Bupropion HCl (Wellbutrin Tablets) 100 mg PO DAILY [facility] Cholecalciferol (Vitamin D (25mcg)) 3,000 unit PO DAILY [facility] Cyanocobalamin (Vitamin B12) 1,000 mcg PO DAILY [facility] Diazepam (Valium) 5 mg PO 4X/DAY PRN PRN PRN Reason: SPASMS Docusate Sodium (Colace) 100 mg PO BID [facility] Heparin Sodium (Beef Lung) () 50 units IV UD PRN PRN Reason: PICC Line Heparin Flush Sodium Chloride () 1,000 mls @ 125 mls/hr IV .Q8H [facility] Last Infusion: 11/18/19 04:15 Dose: 125 mls/hr Documented by: Norepinephrine Bitartrate 8 mg (/ Sodium Chloride) 250 mls @ 9.375 mls/hr CONT INF .[id number] [facility]; Protocol Last Titration: 11/18/19 05:30 Dose: 30 mcg/min, 56.3 mls/hr Documented by: Vasopressin 20 units/ Sodium (Chloride) 25 mls @ 3 mls/hr IV .Q8H20M [facility] Last Admin: 11/18/19 05:53 Dose: 0.04 units/min, 3 mls/hr Documented by: Levothyroxine Sodium (Synthroid) 25 mcg PO DAILY@0600 [facility] Last Admin: 11/18/19 05:24 Dose: 25 mcg Documented by: Multivitamins/Minerals (Multivitamin With Minerals (Bkc)) 2 tablet [facility] Sacubitril/Valsartan (Entresto 97 Mg-103 Mg Tablet) 1 each PO BID [facility] Sertraline HCl (Zoloft) 50 mg PO BID [facility] Sodium Chloride () 10 - 40 ml IV UD PRN PRN Reason: Open End PICC Flush Last Admin: 11/18/19 05:33 Dose: 20 ml Documented by: Sodium Chloride (0.9% Nacl (Sterile) Posiflush) 10 - 40 ml IV UD PRN PRN Reason: Port access or dressing change Tolterodine Tartrate (Detrol La) 4 mg PO DAILY [facility] Assessment/Plan Active and Suspected Problems (Last Reviewed 07/19/19 @ 22:[address] Anthony Pisano MD) Acute renal failure (Acute) Hyperkalemia (Acute) RECOMMENDATIONS: 1. Continue empiric antimicrobials, pending infectious work-up. 2. Await coronavirus PCR results. If negative, okay to discontinue precautions. 3. Place temporary hemodialysis catheter. 4. Continue Levophed and vasopressin as ordered. Start Alejandro-Synephrine as well, given ongoing hemodynamic instability. 5. Start stress dose steroids hydrocortisone 50 mg every 6 hours. 6. Send type and screen, given anemia. 7. Await nephrology recommendations regarding need for hemodialysis. 8. Obtain renal ultrasound. 9. Start appropriate ICU prophylaxis. IMPRESSIONS: 1. Undifferentiated shock Although the exact etiology for the patient's hypotension is unclear, the patient did meet 2 sirs criteria overnight with a respiratory rate greater than 20 and a temperature less than 96.8 ?F. In addition, he has evidence of end-organ dysfunction and significant hemodynamic instability requiring vasopressor support. Nevertheless, the patient's hemodynamic instability may also come as a consequence of intravascular volume depletion coupled with acute kidney injury and concurrent use of multiple antihypertensives and outpatient diuretics. Accordingly, all antihypertensives and diuretics have been placed on hold. The patient has been adequately volume resuscitated at this time. Recommend continuing Levophed and vasopressin. We will plan to add Alejandro-Synephrine as well, given ongoing hemodynamic instability. Stress dose steroids will also be started. The patient will remain on empiric antimicrobials for at least the next 48 hours, while completing infectious work-up. 2. Acute on chronic kidney disease/hyperkalemia Likely prerenal in etiology with a component of ischemic ATN in the setting of #1. Nephrology is currently following. The patient has been adequately volume resuscitated. We will continue current supportive measures while awaiting decision regarding need for hemodialysis. Continue medical management of hyperkalemia. 3. Metabolic encephalopathy Likely related to metabolic derangements in the setting of numbers 1 and 2. Anticipate improvement in mentation with stabilization of hemodynamics. Avoid sedating medications. 4. Anemia The patient has had a slow downward decline in hemoglobin, without any overt signs of blood loss. Type and screen has been sent. We will continue to monitor H&H daily. Plan to transfuse if hemoglobin drops below 7 g/dL. Continue PPI therapy. 5. Stable abdominal wound/super morbid obesity/cardiomyopathy status post ICD/paroxysmal atrial fibrillation/questionable TEX and COPD Complicates care, management, recovery and prognosis. Continue to hold antihypertensives and baseline diuretics. Wound care consultation is pending. TIME: 55 minutes of critical care time, independent of procedures, was spent addressing the patient's undifferentiated shock, acute on chronic kidney disease, hyperkalemia, metabolic encephalopathy, anemia, review of all data and collaboration with the care team. ([id number]) [id number]: [id number] Critical care first hour
[2019-11-18 06:10] LABS: Differential Comment MANUAL DIFF; Lymphocyte 10 % (19-41); Monocyte 7 % (0-10); Neutrophil-Segmented 83 % (47-70); Platelet Estimate ADEQUATE (ADEQ)
[2019-11-18 06:11] LABS: Red Cell Morphology NORM C+C NORMAL (NORM C&C)
--- NOTE | 2019-11-18 06:41 | US_ITS ---
STUDY: RENAL ULTRASOUND - COMPLETE REASON FOR EXAM: Male, 59 years old. LARRY -- HX OF SEPSIS -- BEING TESTED FOR COVID TECHNIQUE: Ultrasound evaluation of the kidneys was performed with real-time and static marte-scale imaging. COMPARISON: None. FINDINGS: RIGHT KIDNEY: Normal location of the right kidney, which is normal in size. The right kidney measures 11.1 cm x 6 cm x 6.2 cm. There is a normal cortex of the right kidney. The renal cortex measures 1.8 cm. There is no right renal mass or cyst. There are no right renal calculi. There is no right hydronephrosis. DISTAL RIGHT URETER: There is non-visualization of the distal right ureter. There is no demonstrated right ureterovesical junction calculus. There is no demonstrated right ureteral jet. LEFT KIDNEY: Normal location of the left kidney, which is normal in size. The left kidney measures 12 cm x 5.4 cm x 6.7 cm. There is a normal cortex of the left kidney. The renal cortex measures 2.0 cm. There is no left renal mass or cyst. There are no left renal calculi. There is no left hydronephrosis. DISTAL LEFT URETER: There is non-visualization of the distal left ureter. There is no demonstrated left ureterovesical junction calculus. There is no demonstrated left ureteral jet. BLADDER: The bladder was not evaluated. A FRITZ catheter was in the bladder. US/Kidney and Bladder IMPRESSION: Normal ultrasound of the kidneys . Electronically Signed: Chino Crowder, at 10:30 EDT , Service support ,
[2019-11-18 06:56] LABS: Anion Gap 14 (5-15); BUN 132 mg/dL (7-18); BUN/Creat Ratio 11.5 RATIO (10-20); Calcium,Total 8.5 mg/dL (8.5-10.1); Chloride 108 mmol/L (98-107); EST Glomerular Filtration Rate 5 mL/min (>60); Est Glom Filt Rate - Afr Amer 6 mL/min (>60); Estimated Creatinine Clearance 6.24 ml/min; Glucose 92 mg/dL (74-106); Sodium Level 138 mmol/L (136-145)
--- NOTE | 2019-11-18 07:17 | RAD_ITS ---
STUDY: X-RAY CHEST REASON FOR EXAM: Male, 59 years old. ? SEPTIC SHOCK TECHNIQUE: Single AP portable view of the chest. COMPARISON: Comparison is made with prior study dated 11/17/2019. FINDINGS: EKG electrodes are seen. Stable appearance of the right PICC line catheter. There is evidence of vascular congestion. Persistent mild increased markings at the lung bases. There is no demonstrated pleural abnormality. There is moderate cardiac enlargement. Normal mediastinum and oumou. Normal visualized pulmonary arteries. Normal visualized aortic arch and descending thoracic aorta. There are diffuse degenerative changes of the visualized thoracic spine. Normal visualized ribs, clavicles, and shoulders. There is no demonstrated abnormality of the visualized soft tissue structures of the upper abdomen. RAD/Chest 1 View (Portable) IMPRESSION: Cardiomegaly. Mild vascular congestion. Stable examination Electronically Signed: Chino Crowder, at 12:28 EDT , Service support ,
[2019-11-18 07:24] LABS: Lactic Acid 0.7 mmol/L (0.4-1.9)
--- NOTE | 2019-11-18 07:39 | PCM.RX.CS ---
Consult Type of Consult: New start Suspected Infection: Sepsis Labs: Sodium 138 mmol/L (136-145) 11/18/19 05:30 Potassium 5.0 mmol/L (3.5-5.1) 11/18/19 05:30 Chloride 108 mmol/L (98-107) H 11/18/19 05:30 Carbon Dioxide 16.0 mmol/L (21.0-32.0) L 11/18/19 05:30 Anion Gap 14 (5-15) 11/18/19 05:30 BUN 132 mg/dL (7-18) H* 11/18/19 05:30 Creatinine 11.50 mg/dL (0.70-1.30) H* 11/18/19 05:30 Est GFR (MDRD) Af Amer 6 mL/min (>60) L 11/18/19 05:30 Est GFR (MDRD) Non-Af 5 mL/min (>60) L 11/18/19 05:30 BUN/Creatinine Ratio 11.5 RATIO (10-20) 11/18/19 05:30 Glucose 92 mg/dL (74-106) 11/18/19 05:30 Goal Trough: 15-20 mcg/mL Pharmacy Plan for Drug Dosing: NEW START IV VANCOMYCIN Consulting Physician: Dr. Mcclelland Indication: Sepsis/ Adb wall infection Goal Trough: 15-20 SrCr: 11.5 (was ~2.5 11/03/2019) CrCl:11 mL/min (uSING AdjBW = 109kg) Comments: Will give initial loading dose of 2g x1. The patient has severe LARRY, as his SCr was ~2.5 at the beginning of this month. Will give the one-time dose and order a random trough with AM labs in ~48hr. Vancomcyin Dose: 2000mg IV x 1 Pending Level: RANDOM level 11/20/19 with AM labs Pharmacy Service will continue to monitor and adjust dosing as required.
--- NOTE | 2019-11-18 07:55 | NURSING ---
wound photo: right lower abdomen
[2019-11-18] MEDS: Hydrocortisone Sod Succinate 100 MG/2 ML Vial 50 MG IV ×4 (08:02→23:40)
[2019-11-18] MEDS: Lactated Ringers 1,000 ML 999 ML IV (08:02)
[2019-11-18] MEDS: Juven (unflavored) Packet 1 PACKET PO ×2 (08:04→17:02)
[2019-11-18] MEDS: Cyanocobalamin 500 MCG Tablet 1000 MCG PO (08:04)
[2019-11-18] MEDS: Tolterodine Tartrate 4 MG CAP.SA PO (08:04)
[2019-11-18] MEDS: Multivitamins,Ther W-Minerals Tablet 2 TABLET PO (08:04)
[2019-11-18] MEDS: Docusate Sodium 100 MG Capsule PO ×2 (08:05→21:22)
[2019-11-18] MEDS: Sertraline 50 MG Tablet PO ×2 (08:05→21:22)
[2019-11-18] MEDS: buPROPion 100 MG Tablet PO (08:05)
[2019-11-18 08:25] LABS: Absolute Neutrophil Count 9.6 X10^3/uL (2.0-7.7); Basophil# 0.03 X10^3/uL; Basophil% 0.3 % (0-1); Eosinophil# 0.32 X10^3/uL; Eosinophils% 2.7 % (0-5); Hematocrit 26.1 % (40-54); Hemoglobin 8.3 g/dL (13.0-16.5); Lymphocyte % 5.1 % (19-41); Mean Corp Hgb Conc 31.8 g/dL (32-36); Mean Corpuscular Hgb 34.2 pg (27.0-32.0); Mean Corpuscular Volume 107.4 fL (80-94); Mean Platelet Vol. 10.2 fl (6.2-12.0); Monocyte# 1.19 X10^3/uL; NRBC Flagged by Analyzer 0 % (0-5); Neutrophil # 9.62 X10^3/uL (2.7-7.7); Neutrophil % 81.1 % (47-70); POSITIVE DIFFERENTIAL YES; Platelet Count 328 K/mm3 (150-450); RBC Distribution Width CV 14.6 % (11.6-14.6); RBC Distribution Width SD 56.7 fl (35.1-43.9); Red Blood Count 2.43 M/mm3 (4.6-6.2); White Blood Count 11.9 K/mm3 (4.4-11.0)
[2019-11-18 08:27] LABS: Differential Indicated SCAN CRITERIA MET
--- NOTE | 2019-11-18 08:30 | CON.PCM_ITS ---
Consultation - Renal 11/18/19 PCP/ Referring MD: Requesting physician: [] Primary care physician: Dr. Mk Chicas MD Reason for Consultation:: LARRY hyperkalemia - History of Present Illness History of Present Illness: The patient is a 59 year old morbidly obese M admitted to ICU for shock, bradycardia, LARRY, hyperkalemia. Creatinine 12 with potassium 6.4 down to 5.0 treated medically. Remains anuric. Pt at [facility] for wound care, hx panniculectomy with iv antibx. He is essentially bedridden due to debilitation. He has RA, cardiomyopathy with EF 35% in 2019 s/p ICD placement, CHF on lasix, spironolactone and Entresto. Requiring pressors for BP support. He presented to [place] [facility] from [facility] with altered mentation and acute kidney injury. Recently discharged from the hospital in mid October. Poor historian. Chart reviewed. Currently denies nausea, vomiting, chest pain, SOB. Appetite has been poor of late. Continues to have open abdominal wound that has been packed. Denies fever, chills, abdominal pain. Minimal drainage from wound. Diarrhea from kayexalate given last night for hyperkalemia. Currently pending COVID status. Baseline creatinine around 2.5 in October. Troponin was negative. Lactate was within normal limits. Head CT revealed chronic involutional changes of the brain. Chest x-ray revealed cardiomegaly and scant pulmonary vascular congestion. - Allergies Allergies: Allergies latex Allergy (Verified 11/17/19 19:31) Rash warfarin sodium [From Coumadin] Adverse Reaction (Verified 11/17/19 19:31) Other caused 2 holes in lungs and chest, advised to never take again - Current Medications Current Medications: Current Medications Acetaminophen (Tylenol) 650 mg PO Q4H PRN PRN PRN Reason: fever, pain 1-01/02 [facility] Last Admin: 11/18/19 06:59 Dose: Not Given Documented by: Bupropion HCl (Wellbutrin Tablets) 100 mg PO DAILY [facility] Last Admin: 11/18/19 08:05 Dose: 100 mg Documented by: Cholecalciferol (Vitamin D (25mcg)) 3,000 unit PO DAILY [facility] Last Admin: 11/18/19 08:05 Dose: 3,000 unit Documented by: Cyanocobalamin (Vitamin B12) 1,000 mcg PO DAILY [facility] Last Admin: 11/18/19 08:04 Dose: 1,000 mcg Documented by: Diazepam (Valium) 5 mg PO 4X/DAY PRN PRN PRN Reason: SPASMS Docusate Sodium (Colace) 100 mg PO BID [facility] Last Admin: 11/18/19 08:05 Dose: 100 mg Documented by: Heparin Sodium (Beef Lung) () 50 units IV UD PRN PRN Reason: PICC Line Heparin Flush Heparin Sodium (Porcine) (Heparin Na) 5,000 unit SC Q8 [facility] Hydrocortisone Sodium Succinate (Solu-Cortef) 50 mg IV Q6 [facility] Last Admin: 11/18/19 08:02 Dose: 50 mg Documented by: Norepinephrine Bitartrate 8 mg (/ Sodium Chloride) 250 mls @ 9.375 mls/hr CONT INF .[id number] [facility]; Protocol Last Admin: 11/18/19 07:21 Dose: 30 mcg/min, 56.3 mls/hr Documented by: Vasopressin 20 units/ Sodium (Chloride) 25 mls @ 3 mls/hr IV .Q8H20M [facility] Last Infusion: 11/18/19 07:00 Dose: 0.04 units/min, 3 mls/hr Documented by: Pantoprazole Sodium 40 mg/ (Sodium Chloride) 110 mls @ 330 mls/hr IV Q12 [facility] Piperacillin Sod/Tazobactam (Sod 3.375 gm/ Sodium Chloride) 50 mls @ 12.5 mls/hr IV Q12 [facility] Vancomycin IV Pharmacy to Dose (1 ea/ Sodium Chloride) 500 mls @ 250 mls/hr IV PRN PRN; Protocol PRN Reason: Rx to Dose Vancomycin HCl 2,000 mg/ (Sodium Chloride) 540 mls @ 250 mls/hr IV X1 ONE Stop: 11/18/19 10:09 Last Admin: 11/18/19 08:06 Dose: 250 mls/hr Documented by: Lactated Ringer's () 1,000 mls @ 999 mls/hr IV .Q1H1M [facility] Stop: 11/18/19 08:55 Last Admin: 11/18/19 08:02 Dose: 999 mls/hr Documented by: Levothyroxine Sodium (Synthroid) 25 mcg PO DAILY@0600 [facility] Last Admin: 08/25/20 05:24 Dose: 25 mcg Documented by: Multivitamins/Minerals (Multivitamin With Minerals (Bkc)) 2 tablet PO DAILYCM [facility] Last Admin: 11/18/19 08:04 Dose: 2 tablet Documented by: Sertraline HCl (Zoloft) 50 mg PO BID [facility] Last Admin: 11/18/19 08:05 Dose: 50 mg Documented by: Sodium Chloride () 10 - 40 ml IV UD PRN PRN Reason: Open End PICC Flush Last Admin: 11/18/19 08:03 Dose: 20 ml Documented by: Sodium Chloride (0.9% Nacl (Sterile) Posiflush) 10 - 40 ml IV UD PRN PRN Reason: Port access or dressing change Tolterodine Tartrate (Detrol La) 4 mg PO DAILY [facility] Last Admin: 11/18/19 08:04 Dose: 4 mg Documented by: - Past Medical History Past Medical History (Chronic Problems): Chronic Problems (Last Reviewed 07/19/19 @ 22:[address] Anthony Pisano MD) Open wound, abdominal wall, lateral (Chronic) History of ventral hernia repair (Chronic) with mesh in last 2 years at [facility] Lumbar back pain (Chronic) from weight of massive abdominal panniculus Ventral hernia (Chronic) laparoscopic repair 2 years ago with mesh Lymphedema (Chronic) painful lymphedema lower abdominal wall Intertrigo (Chronic) abdominal wall skin crease intertrigo Recent weight loss (Chronic) about 100 lbs Panniculitis (Chronic) Abdominal panniculus, symptomatic (Chronic) Presence of implantable cardioverter-defibrillator (ICD) (Chronic) History of radiofrequency ablation (RFA) procedure for cardiac arrhythmia (Chronic) 2007 @ [facility] per Dr. Lange, 2009 @ [facility] for WPW with success. 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) Rotator cuff tear (Chronic) COPD (chronic obstructive pulmonary disease) (Chronic) Anxiety and depression (Chronic) History of DVT (deep vein thrombosis) (Chronic) Diastolic heart failure (Chronic) TEX (obstructive sleep apnea) (Chronic) Hyperlipidemia (Chronic) Benign essential hypertension (Chronic) Rheumatoid arthritis (Chronic) dilated right ventricle (Chronic) Cardiomyopathy (Chronic) Super obesity (Chronic) WPW (Axojt-Fpfwajpzw-Suatc syndrome) (Chronic) Atrial fibrillation (Chronic) - Past Surgical History Surgical History: cholecystectomy, herniorrhaphy, - - Cardiac ablation x 2, Defib placement, Cholecystectomy, LLE surgery s/p trauma w/ hardware removal later, gastric sleeve surgery - Social History Smoking Status: Never smoker - Family History Maternal Family History: Family History (Last Reviewed 07/19/19 @ 22:[address] Anthony Pisano MD) Sister Arthritis Brother Psychiatric care History Items: Heart Disease, Hypertension Paternal Family History: Family History (Last Reviewed 07/19/19 @ 22:[address] Anthony Pisano MD) Sister Arthritis Brother Psychiatric care History Items: Heart Disease, Hypertension Review of Systems Constitutional: Reports: Anorexia, Weakness - chronic. Denies: Chills, Fever Eyes: Denies: Vision Change HEENT: Denies: Difficulty Hearing Cardiovascular: Reports: - - WPW, CMP, AICD. Denies: Chest Pain, Edema, Syncope Respiratory: Denies: Cough, Shortness of Breath Gastrointestinal: Reports: - - anorexia. Denies: Abdominal Pain, Nausea, Vomiting Genitourinary: Reports: - - anuric Skin: Denies: Rash Neurological: Reports: Tremor, - - weakness. Denies: Seizures Endocrine: Reports: - - hypothyroid Hematologic/ Lymphatic: Reports: Hx of blood clot Patient Problems: Active and Suspected Problems (Last Reviewed 07/19/19 @ 22:[address] Anthony Pisano MD) Morbid obesity (Acute) Metabolic acidosis (Acute) Shock (Acute) Acute renal failure (Acute) Hyperkalemia (Acute) - Physical Exam Vitals/I&O's: Vital Signs Temp Pulse Resp BP Pulse Ox 98.4 F 74 18 87/44 L 96 11/18/19 07:00 11/18/19 07:00 11/18/19 07:00 11/18/19 07:21 11/18/19 07:02 Oxygen Flow Rate (L/min) 2 Oxygen Delivery Method Nasal Cannula Weight: 177.5 kg Body Mass Index (BMI) 63.1 Intake and Output for Last 24 Hours 08/11/17/19 11/18/19 23:59 23:59 23:59 Intake Total 999. 2983.16 / 2983.16 Balance 298.16 / 2983.16 General: Alert, Oriented x3, Cooperative, No apparent distress HEENT: PERRLA, EOMI Oral: Dry Mucosa Neck: Supple, No JVD Lungs: Clear to auscultation, Diminished Cardiovascular: Regular rate, No rub noted Abdomen: Bowel Sounds Present, Soft, Non Tender, Non-Distended, Obese Extremities: No edema, Diminished Peripheral Pulses Musculoskeletal: Muscle Wasting Neurological: - - slight tremor, gen weakness Psych/Mental Status: Normal Affect, Appropriate, Alert and oriented to time, place, person, mood and affect Laboratory Results 11/17/19 20:28: Urine Color Yellow, Urine Clarity Sl. Cloudy, Urine pH 5.0, Ur Specific [place] 1.015, Urine Protein 30 H, Urine Glucose (UA) Normal, Urine Ketones 5 H, Urine Occult Blood Negative, Urine Nitrite Negative, Urine Bilirubin Negative, Urine Urobilinogen Normal, Ur Leukocyte Esterase 25 H, Urine RBC 0 SEEN, Urine WBC 0-5 SEEN, Ur Squamous Epith Cells 0 SEEN, Amorphous Sediment 1+, Urine Bacteria 0 SEEN, Urine Mucus 0 SEEN 11/17/19 20:32: WBC 10.9, RBC 2.38 L, Hgb 8.1 L, Hct 25.4 L, MCV 106.7 H, MCH 34.0 H, MCHC 31.9 L, RDW Std Deviation 55.9 H, RDW Coeff of Florina 14.8 H, Plt Count 258, MPV 9.8, Immature Gran % (Auto) 0.500, Neut % (Auto) 83.9 H, Lymph % (Auto) 3.9 L, [place] % (Auto) 9.1, Eos % (Auto) 2.3, Baso % (Auto) 0.3, Absolute Neuts (auto) 9.2 H, Absolute Lymphs (auto) 0.43 L, Nucleated RBC % 0, Differential Comment , Platelet Estimate ADEQUATE, RBC Morphology N CHROM, Anisocytosis 1+ 11/17/19 20:32: PT 15.7 H, INR 1.3, APTT 32.8 11/17/19 20:32: Sodium 132 L, Potassium 6.4 H*, Chloride 104, Carbon Dioxide 16.0 L, Anion Gap 12, BUN 146 H*, Creatinine 12.40 H*, Estim Creat Clear Calc 5.79, Est GFR (MDRD) Af Amer 5 L, Est GFR (MDRD) Non-Af 4 L, BUN/Creatinine Ratio 11.8, Glucose 104, Calcium 9.0, Total Bilirubin 0.50, AST 20, ALT 18, Alkaline Phosphatase 107, Troponin I < 0.015, Total Protein 6.9, Albumin 2.5 L, Globulin 4.4 H, Albumin/Globulin Ratio 0.6 L 11/17/19 20:32: Lactic Acid 0.8 11/18/19 02:54: Sodium 139, Potassium 5.5 H, Chloride 106, Carbon Dioxide 18.0 L , Anion Gap 15, BUN 139 H*, Creatinine 12.10 H*, Estim Creat Clear Calc 5.93, Est GFR (MDRD) Af Amer 6 L, Est GFR (MDRD) Non-Af 5 L, BUN/Creatinine Ratio 11.5, Glucose 89, Calcium 8.7 11/18/19 05:30: WBC 11.9 H, RBC 2.43 L, Hgb 8.3 L, Hct 26.1 L, MCV 107.4 H, MCH 34.2 H, MCHC 31.8 L, RDW Std Deviation 56.7 H, RDW Coeff of Florina 14.6, Plt Count 328, MPV 10.2, Immature Gran % (Auto) 0.800, Neut % (Auto) 81.1 H, Lymph % (Auto) 5.1 L, [place] % (Auto) 10.0, Eos % (Auto) 2.7, Baso % (Auto) 0.3, Absolute Neuts (auto) 9.6 H, Absolute Lymphs (auto) 0.60 L, Total Counted BUSINESS REPORTER, Neutrophils % (Manual) 83 H, Lymphocytes % (Manual) 10 L, Monocytes % (Manual) 7, Nucleated RBC % 0, Differential Comment MANUAL DIFF, Platelet Estimate ADEQUATE, RBC Morphology NORM C+C 11/18/19 05:30: Sodium 138, Potassium 5.0, Chloride 108 H, Carbon Dioxide 16.0 L , Anion Gap 14, BUN 132 H*, Creatinine 11.50 H*, Estim Creat Clear Calc 6.24, Est GFR (MDRD) Af Amer 6 L, Est GFR (MDRD) Non-Af 5 L, BUN/Creatinine Ratio 11.5, Glucose 92, Calcium 8.5 11/18/19 05:30: Troponin I < 0.015, TSH 1.90 11/18/19 05:30: B-Natriuretic Peptide Pending 11/18/19 06:45: Blood Type A POSITIVE, Antibody Screen NEGATIVE 11/18/19 06:45: Lactic Acid 0.7 Clinical Impression(s) from Imaging Studies Brain CT 11/17/19 20:04 IMPRESSION: Chronic involutional changes of the brain. Electronically Signed: Giuseppe Hernandez MD at 21:27 EDT , Service support , Chest X-Ray 11/17/19 21:10 IMPRESSION: Chronic CHF Electronically Signed: Giuseppe Hernandez MD at 21:47 EDT , Service support , Current Medications Acetaminophen (Tylenol) 650 mg PO Q4H PRN PRN PRN Reason: fever, pain 1-01/02 Amiodarone HCl (Cordarone) 400 mg PO DAILYCM [facility] Last Admin: 11/18/19 06:59 Dose: Not Given Documented by: Bupropion HCl (Wellbutrin Tablets) 100 mg PO DAILY [facility] Last Admin: 11/18/19 08:05 Dose: 100 mg Documented by: Cholecalciferol (Vitamin D (25mcg)) 3,000 unit PO DAILY [facility] Last Admin: 11/18/19 08:05 Dose: 3,000 unit Documented by: Cyanocobalamin (Vitamin B12) 1,000 mcg PO DAILY [facility] Last Admin: 11/18/19 08:04 Dose: 1,000 mcg Documented by: Diazepam (Valium) 5 mg PO 4X/DAY PRN PRN PRN Reason: SPASMS Docusate Sodium (Colace) 100 mg PO BID [facility] Last Admin: 11/18/19 08:05 Dose: 100 mg Documented by: Heparin Sodium (Beef Lung) () 50 units IV UD PRN PRN Reason: PICC Line Heparin Flush Heparin Sodium (Porcine) (Heparin Na) 5,000 unit SC Q8 [facility] Hydrocortisone Sodium Succinate (Solu-Cortef) 50 mg IV Q6 [facility] Last Admin: 11/18/19 08:02 Dose: 50 mg Documented by: Norepinephrine Bitartrate 8 mg (/ Sodium Chloride) 250 mls @ 9.375 mls/hr CONT INF .[id number] [facility]; Protocol Last Admin: 11/18/19 07:21 Dose: 30 mcg/min, 56.3 mls/hr Documented by: Vasopressin 20 units/ Sodium (Chloride) 25 mls @ 3 mls/hr IV .Q8H20M [facility] Last Infusion: 11/18/19 07:00 Dose: 0.04 units/min, 3 mls/hr Documented by: Pantoprazole Sodium 40 mg/ (Sodium Chloride) 110 mls @ 330 mls/hr IV Q12 [facility] Piperacillin Sod/Tazobactam (Sod 3.375 gm/ Sodium Chloride) 50 mls @ 12.5 mls/hr IV Q12 [facility] Vancomycin IV Pharmacy to Dose (1 ea/ Sodium Chloride) 500 mls @ 250 mls/hr IV PRN PRN; Protocol PRN Reason: Rx to Dose Vancomycin HCl 2,000 mg/ (Sodium Chloride) 540 mls @ 250 mls/hr IV X1 ONE Stop: 11/18/19 10:09 Last Admin: 11/18/19 08:06 Dose: 250 mls/hr Documented by: Lactated Ringer's () 1,000 mls @ 999 mls/hr IV .Q1H1M [facility] Stop: 11/18/19 08:55 Last Admin: 11/18/19 08:02 Dose: 999 mls/hr Documented by: Levothyroxine Sodium (Synthroid) 25 mcg PO DAILY@0600 [facility] Last Admin: 11/18/19 05:24 Dose: 25 mcg Documented by: Multivitamins/Minerals (Multivitamin With Minerals (Bkc)) 2 tablet PO DAILYCM [facility] Last Admin: 11/18/19 08:04 Dose: 2 tablet Documented by: Sertraline HCl (Zoloft) 50 mg PO BID [facility] Last Admin: 11/18/19 08:05 Dose: 50 mg Documented by: Sodium Chloride () 10 - 40 ml IV UD PRN PRN Reason: Open End PICC Flush Last Admin: 08/25/20 08:03 Dose: 20 ml Documented by: Sodium Chloride (0.9% Nacl (Sterile) Posiflush) 10 - 40 ml IV UD PRN PRN Reason: Port access or dressing change Tolterodine Tartrate (Detrol La) 4 mg PO DAILY [facility] Last Admin: 11/18/19 08:04 Dose: 4 mg Documented by: Assessment/Plan All Active Problems (Last Reviewed 07/19/19 @ 22:[address] Anthony Pisano MD) Morbid obesity (Acute) Metabolic acidosis (Acute) Shock (Acute) Acute renal failure (Acute) Hyperkalemia (Acute) Acute exacerbation of CHF (congestive heart failure) (Acute) 1. Anuric Acute renal failure likely due to ischemic ATN, hypotension. Check FENA, jordan to CD to monitor urine output, r/o obstructive uropathy. Pt had been on diuretics, spironolactone, Entresto at [facility] with poor intake-all discontinued. Discussed with pt need for hemodialysis due to renal failure, potential risks involved with access placement, dialysis itself. Pt agreed to proceed. 2. Acute hyperkalemia K 5.0 today medically managed. likely from LARRY, spironolactone, Entresto 3. Chronic abdominal wound on iv antibx at [facility] with PICC line. WBC 11.9K today. renal dose iv antibx 4. Septic shock, hypotension on pressors. Await bld cx 5. Morbid obesity 6. TEX on BIPAP 7. Hx DVT on anticoagulation. RONNY HUNTER, hospitalist
[2019-11-18 08:45] LABS: Urine Sodium 55 mmol/L (Not Establ.)
[2019-11-18] MEDS: Acetaminophen 325 MG Tablet 650 MG PO ×2 (08:53→20:23)
[2019-11-18 09:10] LABS: Base Excess -13 mmol/L (-2 to +2); Bicarbonate 14.8 mmol/L (22-26); Blood Gas Specimen Type ART; FI02 2; O2 Delivery Device Cannula; PO2 80 mmHG (75-100); SITE Art Line; SO2 93 % (95-99); Total Carbon Dioxide 16 mmol/L; pCO2 35.3 mmHg (35-45); pH 7.23 (7.35-7.45)
--- NOTE | 2019-11-18 10:01 | CASEMGMT ---
Addendum entered by Selin Stover 11/18/19 10:21: SW faxed updates to [facility], will continue to follow. DARION Garrett Original Note: Pt is here from [facility], went there from here on 11/05/19. SW will speak w/pt when appropriate, to confirm the plan will be for pt to return there. Pt is starting dialysis today, if dialysis needed at discharge this could impact the discharge plan. SW called [facility], message left in admissions, and updates will be faxed. Covid is pending. Pt will need a new precert to return. SW will continue to follow. DARION Garrett
[2019-11-18 10:08] LABS: M R Staph aureus DNA By PCR Negative (Negative); Probe Check PASS; Specimen Processing Control PASS
[2019-11-18] MEDS: Phenylephrine 40 mg/250 mL 0.9% NS 41.3 MG CONT INF ×2 (13:22→19:58)
--- NOTE | 2019-11-18 15:09 | CASEMGMT ---
[facility] CM Readmission Note Previous Admission: 11/02--02/2020 Diagnosis: abd wound infection DC Disposition: SNF Current Admission Presentation: ARF, BUN/Creat 146/12.4 Patient presents from SNF with altered mental status and renal failure. 3l IVF given, hypotensive and started on pressors. Per renal consult, pt is anuric and renal failure likely due to ischemic ATN. Plan will be for hemodialysis. Chronic abdominal wound, on IV Vancomycin, wound vac. Currently on 2L NC. SW consult for return to SNF on discharge. Villa CALDWELLN RN ACM
--- NOTE | 2019-11-18 15:13 | RAD_ITS ---
STUDY: X-RAY CHEST REASON FOR EXAM: Male, 59 years old. LEFT IJ DIALYSIS CATH PLACEMENT TECHNIQUE: Single AP portable view of the chest. COMPARISON: Comparison is made with prior study done earlier in the day. FINDINGS: A left-sided internal jugular venous catheter has been placed. The tip is at the junction of the superior vena cava and brachiocephalic vein. The remainder of the examination is unchanged. RAD/CXR for Line Placement IMPRESSION: The tip of the left internal jugular venous catheter is at the junction of the superior vena cava and left brachiocephalic vein. The remainder of the examination is unchanged. Electronically Signed: Chino Crowder, at 15:52 EDT , Service support ,
[2019-11-18] MEDS: Heparin 10,000 UNITS/10 ML Vial 1000 UNITS IV (15:22)
[2019-11-18] MEDS: Heparin Injection (Vial) 5,000 UNIT/ML VIAL 5000 UNIT SC ×2 (15:22→21:25)
--- NOTE | 2019-11-18 15:22 | PCM.OPRPT ---
Report of Operation Date of Procedure: 11/18/19 Surgery/Procedure Performed:: Temporary hemodialysis catheter insertion Description of Surgical Findings:: Very hemodialysis catheter placement procedure note Indication: Hemo-dialysis Procedure: A time-out was completed to verify correct patient, indication, medication allergies, procedure, coagulation studies, informed consent signed, and equipment needed. The patient was placed in the supine position for a central line placement to the rt IJ r vein. The patients rt neck was prepped using chlorhexidine and a full body sterile drape was applied. 1% lidocaine was used to anesthetize the surrounding skin. 2 unsuccessful attempts at venous access to the right IJ, site was aborted. Pressure maintained to site until hemostasis. Then prepared the patient for a central line placement to the left IJ vein. The patients left neck was prepped using chlorhexidine and a full body sterile drape was applied. 1% lidocaine was used to anesthetize the surrounding skin. A 12fr 16 cm temporary hemodialysis catheter introduced into the internal jugular vein using the modified Seldinger technique with the assistance of ultrasound. The catheter was threaded smoothly over the guidewire, the site was dilated up twice in a stepwise fashion, the guidewire was removed easily, nonpulsatile blood returned. All ports were aspirated of air and flushed with sterile saline, then locked with U 1000 heparin 1.3 cc to each port. The catheter was sutured in place and covered with an occlusive dressing impregnated with chlorhexidine. Post-procedure: The patient tolerated the procedure well. Vital signs remained stable. EBL 5cc. No complications. Chest X Ray ordered to confirm tip placement and the absence of pneumothorax. Procedures: [id number] Insert Non-tunnel CV Cath
--- NOTE | 2019-11-18 15:50 | NURSING ---
1500 Mireya BHATT at bedside to place HD cath in [facility] 2%lidocaine used for procedure SC given by Mireya BHATT
--- NOTE | 2019-11-18 16:08 | CASEMGMT ---
Healthcare POA scanned into summary tab, living will provision initialed within the POA document. DARION Garrett
--- NOTE | 2019-11-18 17:04 | PN_ITS ---
Patient Problems: Active and Suspected Problems (Last Reviewed 07/19/19 @ 22:[address] Anthony Pisano MD) Acute renal failure (Acute) Hyperkalemia (Acute) Subjective: Patient was seen and examined today, I discussed his care with critical care today. Critical care ordered antibiotics for the patient today for treatment of possible septic shock. Wound care nurse removed the wound VAC packing there is no purulent discharge noted from the wound along the edge of the wound is somewhat necrotic looking however in one area. - Physical Exam Vitals/I&O's: Vital Signs Temp Pulse Resp BP Pulse Ox 99 F 83 23 H 100/49 L 96 11/18/19 16:00 11/18/19 16:00 11/18/19 16:00 11/18/19 16:00 11/18/19 16:00 Oxygen Flow Rate (L/min) 2 Oxygen Delivery Method Nasal Cannula Weight: 177.5 kg Body Mass Index (BMI) 63.1 Intake and Output for Last 24 Hours 11/16/19 11/17/19 11/18/19 23:59 23:59 23:59 Intake Total 1000.05 / 1000.05 5956.63 / 5956.63 Output Total 230 / 230 Balance 1000.05 / 1000.05 5726.63 / 5726.63 General: Alert, Oriented x3, Cooperative, No apparent distress, Well developed, Well nourished HEENT: Atraumatic, PERRLA, EOMI, Normocephalic Oral: Moist Mucosa Neck: Supple, No JVD, Trachea Midline, Thyroid Normal Size and Texture Lungs: Clear to auscultation, Normal air movement, No rhonchi, No wheeze Cardiovascular: Regular rate, Regular Rhythm, Normal S1, Normal S2, No murmurs, No Ectopic Activity, PMI Normal, No rub noted, No Gallop Abdomen: Bowel Sounds Present, Soft, Obese, - - A large wound is noted over the patient's lower panniculus area, the wound is clean and dry at this time and there is no purulent drainage noted. Extremities: No clubbing, No cyanosis, Capillary Refill Less than 3 Seconds Skin: No rashes, Ulcer/ Wound - Large wound is noted from one side of the lower abdominal area to the other from recent panniculectomy Musculoskeletal: No Tenderness to Palpation of Joints or Extremities Neurological: Cranial nerves II-XII grossly intact, Neuro grossly intact, Sensory exam intact to light touch and pain, Coordination normal Psych/Mental Status: Normal Affect, Appropriate, Alert and oriented to time, place, person, mood and affect Microbiology Past 72 Hours 11/18/19 10:30 Stool Stool Occult Blood (SASHA) - Final Laboratory Results 11/17/19 20:28: Urine Color Yellow, Urine Clarity Sl. Cloudy, Urine pH 5.0, Ur Specific [place] 1.015, Urine Protein 30 H, Urine Glucose (UA) Normal, Urine Ketones 5 H, Urine Occult Blood Negative, Urine Nitrite Negative, Urine Bilirubin Negative, Urine Urobilinogen Normal, Ur Leukocyte Esterase 25 H, Urine RBC 0 SEEN, Urine WBC 0-5 SEEN, Ur Squamous Epith Cells 0 SEEN, Amorphous Sediment 1+, Urine Bacteria 0 SEEN, Urine Mucus 0 SEEN 11/17/19 20:32: WBC 10.9, RBC 2.38 L, Hgb 8.1 L, Hct 25.4 L, MCV 106.7 H, MCH 34.0 H, MCHC 31.9 L, RDW Std Deviation 55.9 H, RDW Coeff of Florina 14.8 H, Plt Count 258, MPV 9.8, Immature Gran % (Auto) 0.500, Neut % (Auto) 83.9 H, Lymph % (Auto) 3.9 L, Kings % (Auto) 9.1, Eos % (Auto) 2.3, Baso % (Auto) 0.3, Absolute Neuts (auto) 9.2 H, Absolute Lymphs (auto) 0.43 L, Nucleated RBC % 0, Differential Comment , Platelet Estimate ADEQUATE, RBC Morphology N CHROM, Anisocytosis 1+ 11/17/19 20:32: PT 15.7 H, INR 1.3, APTT 32.8 11/17/19 20:32: Sodium 132 L, Potassium 6.4 H*, Chloride 104, Carbon Dioxide 16.0 L, Anion Gap 12, BUN 146 H*, Creatinine 12.40 H*, Estim Creat Clear Calc 5.79, Est GFR (MDRD) Af Amer 5 L, Est GFR (MDRD) Non-Af 4 L, BUN/Creatinine Ratio 11.8, Glucose 104, Calcium 9.0, Total Bilirubin 0.50, AST 20, ALT 18, Alkaline Phosphatase 107, Troponin I < 0.015, Total Protein 6.9, Albumin 2.5 L, Globulin 4.4 H, Albumin/Globulin Ratio 0.6 L 11/17/19 20:32: Lactic Acid 0.8 11/18/19 02:54: Sodium 139, Potassium 5.5 H, Chloride 106, Carbon Dioxide 18.0 L , Anion Gap 15, BUN 139 H*, Creatinine 12.10 H*, Estim Creat Clear Calc 5.93, Est GFR (MDRD) Af Amer 6 L, Est GFR (MDRD) Non-Af 5 L, BUN/Creatinine Ratio 11.5, Glucose 89, Calcium 8.7 11/18/19 05:30: WBC 11.9 H, RBC 2.43 L, Hgb 8.3 L, Hct 26.1 L, MCV 107.4 H, MCH 34.2 H, MCHC 31.8 L, RDW Std Deviation 56.7 H, RDW Coeff of Florina 14.6, Plt Count 328, MPV 10.2, Immature Gran % (Auto) 0.800, Neut % (Auto) 81.1 H, Lymph % (Auto) 5.1 L, Kings % (Auto) 10.0, Eos % (Auto) 2.7, Baso % (Auto) 0.3, Absolute Neuts (auto) 9.6 H, Absolute Lymphs (auto) 0.60 L, Total Counted [employer], Neutrophils % (Manual) 83 H, Lymphocytes % (Manual) 10 L, Monocytes % (Manual) 7, Nucleated RBC % 0, Differential Comment MANUAL DIFF, Platelet Estimate ADEQUATE, RBC Morphology NORM C+C 11/18/19 05:30: Sodium 138, Potassium 5.0, Chloride 108 H, Carbon Dioxide 16.0 L , Anion Gap 14, BUN 132 H*, Creatinine 11.50 H*, Estim Creat Clear Calc 6.24, Est GFR (MDRD) Af Amer 6 L, Est GFR (MDRD) Non-Af 5 L, BUN/Creatinine Ratio 11.5, Glucose 92, Calcium 8.5 11/18/19 05:30: Troponin I < 0.015, TSH 1.90 11/18/19 05:30: B-Natriuretic Peptide 1653.0 H 11/18/19 06:45: Blood Type A POSITIVE, Antibody Screen NEGATIVE 11/18/19 06:45: Lactic Acid 0.7 11/18/19 07:01: Specimen Type ART, Sample Site Art Line, pH 7.23 L, Bicarbonate Actual 14.8 L, Total CO2 16, Base Excess -13 L, O2 Saturation 93 L, O2 % 2, ABG pCO2 35.3, ABG pO2 80, O2 Delivery Device Cannula 11/18/19 08:15: Urine Creatinine 159.00 11/18/19 08:15: Ur Random Sodium 55 11/18/19 08:15: MRSA (PCR) Negative 11/18/19 09:15: COVID-19 ([facility]) Not Detected Current Medications Acetaminophen (Tylenol) 650 mg PO Q4H PRN PRN PRN Reason: fever, pain -01/02 Last Admin: 11/18/19 08:53 Dose: 650 mg Documented by: Amiodarone HCl (Cordarone) 400 mg PO DAILYCM [facility] Last Admin: 11/18/19 06:59 Dose: Not Given Documented by: Bupropion HCl (Wellbutrin Tablets) 100 mg PO DAILY [facility] Last Admin: 11/18/19 08:05 Dose: 100 mg Documented by: Cholecalciferol (Vitamin D (25mcg)) 3,000 unit PO DAILY [facility] Last Admin: 11/18/19 08:05 Dose: 3,000 unit Documented by: Cyanocobalamin (Vitamin B12) 1,000 mcg PO DAILY [facility] Last Admin: 11/18/19 08:04 Dose: 1,000 mcg Documented by: Diazepam (Valium) 5 mg PO 4X/DAY PRN PRN PRN Reason: SPASMS Docusate Sodium (Colace) 100 mg PO BID [facility] Last Admin: 11/18/19 08:05 Dose: 100 mg Documented by: Heparin Sodium (Beef Lung) () 50 units IV UD PRN PRN Reason: PICC Line Heparin Flush Heparin Sodium (Porcine) (Heparin Na) 5,000 unit SC Q8 [facility] Last Admin: 11/18/19 15:22 Dose: 5,000 unit Documented by: Hydrocortisone Sodium Succinate (Solu-Cortef) 50 mg IV Q6 [facility] Last Admin: 11/18/19 17:02 Dose: 50 mg Documented by: Norepinephrine Bitartrate 8 mg (/ Sodium Chloride) 250 mls @ 9.375 mls/hr CONT INF .[id number] [facility]; Protocol Last Admin: 11/18/19 16:07 Dose: 30 mcg/min, 56.3 mls/hr Documented by: Vasopressin 20 units/ Sodium (Chloride) 25 mls @ 3 mls/hr IV .[id number] [facility] Last Admin: 11/18/19 17:02 Dose: 0.04 units/min, 3 mls/hr Documented by: Pantoprazole Sodium 40 mg/ (Sodium Chloride) 110 mls @ 330 mls/hr IV Q12 [facility] Last Infusion: 11/18/19 09:24 Dose: Infused Documented by: Piperacillin Sod/Tazobactam (Sod 3.375 gm/ Sodium Chloride) 50 mls @ 12.5 mls/hr IV Q12 [facility] Last Infusion: 11/18/19 14:25 Dose: Infused Documented by: Vancomycin IV Pharmacy to Dose (1 ea/ Sodium Chloride) 500 mls @ 250 mls/hr IV PRN PRN; Protocol PRN Reason: Rx to Dose Phenylephrine HCl 40 mg/ (Sodium Chloride) 250 mls @ 41.25 mls/hr CONT INF .Q6H4M [facility]; Protocol Last Titration: 11/18/19 16:00 Dose: 110 mcg/min, 41.3 mls/hr Documented by: Levothyroxine Sodium (Synthroid) 25 mcg PO DAILY@0600 [facility] Last Admin: 11/18/19 05:24 Dose: 25 mcg Documented by: Multivitamins/Minerals (Multivitamin With Minerals (Bkc)) 2 tablet PO DAILYCM [facility] Last Admin: 11/18/19 08:04 Dose: 2 tablet Documented by: Sertraline HCl (Zoloft) 50 mg PO BID [facility] Last Admin: 11/18/19 08:05 Dose: 50 mg Documented by: Sodium Chloride () 10 - 40 ml IV UD PRN PRN Reason: Open End PICC Flush Last Admin: 11/18/19 08:03 Dose: 20 ml Documented by: Sodium Chloride (0.9% Nacl (Sterile) Posiflush) 10 - 40 ml IV UD PRN PRN Reason: Port access or dressing change Sodium Hypochlorite (Dakins Solution 0.25% (1/2 Strength)) 1 applic TOPICAL BID [facility]; Protocol Tolterodine Tartrate (Detrol La) 4 mg PO DAILY [facility] Last Admin: 11/18/19 08:04 Dose: 4 mg Documented by: Medical Necessity - Tobacco Use Smoking Status: Never smoker Assessment/Plan All Active Problems (Last Reviewed 07/19/19 @ 22:[address] Anthony Pisano MD) Acute renal failure (Acute) Hyperkalemia (Acute) Acute exacerbation of CHF (congestive heart failure) (Acute) #1 acute shock-etiology unclear at this point, it may be due to septic shock or secondary to hypovolemia-for now, patient will be placed on IV antibiotics and monitored in the ICU, vasopressors will be used if necessary to elevate blood pressure #2 acute renal failure-etiology unclear, possibly ATN from hypotension, patient will undergo dialysis today, nephrology is participating in his care #3 metabolic encephalopathy #4 morbid obesity #5 anemia-etiology unclear at this point, labs will be monitored #6 large abdominal wound status post panniculectomy-wound care will participate in the patient's care #7 hyperkalemia-this will be monitored, patient will have dialysis today Inpatient E&M: [id number] Subs Hosp L2
[2019-11-18] MEDS: diazePAM 5 MG Tablet PO (20:23)
--- NOTE | 2019-11-18 20:29 | DIALYSIS ---
HD x3 hours completed at 2029 on a 2K bath, tolerated well, on pressors, UF 0mL, maintained profile A, accessed via new left neck temporary dialysis catheter, worked well, next tx planned for tomorrow
[2019-11-18] MEDS: DAKIN'S SOL HALF STRENGTH (=0.25%) 1 APPLIC TOPICAL (23:45)
[2019-11-19] VITALS (56 sets, daily range): BP systolic 88–143; BP diastolic 40–65; PULSE 78–101; RESP 10–27; TEMP 37.1–37.6; O2SAT 2–98
[2019-11-19] MEDS: Acetaminophen 325 MG Tablet 650 MG PO ×3 (00:55→21:13)
[2019-11-19] MEDS: Phenylephrine 40 mg/250 mL 0.9% NS 11.3 MG CONT INF (02:26)
[2019-11-19] MEDS: Levothyroxine 25 MCG TABLET PO (05:26)
[2019-11-19] MEDS: Heparin Injection (Vial) 5,000 UNIT/ML VIAL 5000 UNIT SC ×3 (05:26→21:12)
[2019-11-19] MEDS: diazePAM 5 MG Tablet PO (05:26)
[2019-11-19] MEDS: Hydrocortisone Sod Succinate 100 MG/2 ML Vial 50 MG IV ×3 (05:27→18:02)
--- NOTE | 2019-11-19 06:06 | PCM.PN.INT ---
Subjective: The patient was seen and examined at the bedside this morning. Events from the last 24 hours have been reviewed. At one point yesterday, the patient required 3 vasopressors to maintain hemodynamic stability. Since that time, the patient has had a temporary left hemodialysis catheter placed. He underwent dialysis last evening, which he tolerated without issue. The patient was run net even. Overnight, the patient's Alejandro-Synephrine was able to be weaned off. However, he remains on high-dose Levophed and vasopressin. Objective: The patient's most recent lab work, culture data and imaging studies have all been personally reviewed. Renal ultrasound was unremarkable. Coronavirus PCR was negative. MRSA screen was negative. Blood and urine cultures are pending. General: Alert, Cooperative, No apparent distress HEENT: Atraumatic, PERRLA, Normocephalic Oral: No Gingival or Mucosal Lesions/ Ulcerations Neck: Supple, No Nodes, Trachea Midline, - - Left IJ temporary hemodialysis catheter in place Lungs: Diminished Cardiovascular: Regular rate, Regular Rhythm Abdomen: Bowel Sounds Present, Soft, Non Tender, Obese Extremities: No clubbing, No cyanosis, Edema Skin: Ulcer/ Wound - Pannus, unchanged from previous. Musculoskeletal: No Muscle Wasting Lymphatic: No Cervical, Supraclavicular, or Inguinal Adenopathy Neurological: Cranial nerves II-XII grossly intact, Neuro grossly intact Psych/Mental Status: Normal Affect, Appropriate Vital Signs Temp Pulse Resp BP Pulse Ox 99.2 F H 89 20 H 99/55 L 94 11/19/19 05:45 11/19/19 05:45 11/19/19 05:45 11/19/19 05:45 11/19/19 05:45 Oxygen Flow Rate (L/min) 3 Oxygen Delivery Method Nasal Cannula Weight: 393 lb 4.874 oz Body Mass Index (BMI) 63.1 Intake and Output for Last 24 Hours 11/17/19 11/18/19 11/19/19 23:59 23:59 23:59 Intake Total 1000.05 / 1000.05 6776.47 / 6997.07 669.67 / 669.67 Output Total 575 / 775 725 / 725 Balance 1000.05 / 1000.05 6201.47 / 6222.07 -55.33 / -55.33 Labs (Last 48 Hours) 08/11/17/19 11/17/19 20:28 20:32 20:32 WBC 10.9 RBC 2.38 L Hgb 8.1 L Hct 25.4 L MCV 106.7 H MCH 34.0 H MCHC 31.9 L RDW Std Deviation 55.9 H RDW Coeff of Florina 14.8 H Plt Count 258 MPV 9.8 Immature Gran % (Auto) 0.500 Neut % (Auto) 83.9 H Lymph % (Auto) 3.9 L [place] % (Auto) 9.1 Eos % (Auto) 2.3 Baso % (Auto) 0.3 Absolute Neuts (auto) 9.2 H Absolute Lymphs (auto) 0.43 L Total Counted Neutrophils % (Manual) Lymphocytes % (Manual) Monocytes % (Manual) Nucleated RBC % 0 Differential Comment Platelet Estimate ADEQUATE RBC Morphology N CHROM Anisocytosis 1+ PT 15.7 H INR 1.3 APTT 32.8 Specimen Type Sample Site pH Bicarbonate Actual Total CO2 Base Excess O2 Saturation O2 % ABG pCO2 ABG pO2 O2 Delivery Device Sodium Potassium Chloride Carbon Dioxide Anion Gap BUN Creatinine Estim Creat Clear Calc Est GFR (MDRD) Af Amer Est GFR (MDRD) Non-Af BUN/Creatinine Ratio Glucose Lactic Acid Calcium Total Bilirubin AST ALT Alkaline Phosphatase Troponin I B-Natriuretic Peptide Total Protein Albumin Globulin Albumin/Globulin Ratio TSH Urine Color Yellow Urine Clarity Sl. Cloudy Urine pH 5.0 Ur Specific [place] 1.015 Urine Protein 30 H Urine Glucose (UA) Normal Urine Ketones 5 H Urine Occult Blood Negative Urine Nitrite Negative Urine Bilirubin Negative Urine Urobilinogen Normal Ur Leukocyte Esterase 25 H Urine RBC 0 SEEN Urine WBC 0-5 SEEN Ur Squamous Epith Cells 0 SEEN Amorphous Sediment 1+ Urine Bacteria 0 SEEN Urine Mucus 0 SEEN Ur Random Sodium Urine Creatinine COVID-19 ([facility]ENRY) Hep Bs Antigen Hep Bs Antibody Hep B Core Total Ab MRSA (PCR) Blood Type Antibody Screen 11/17/19 11/17/19 11/18/19 20:32 20:32 02:54 WBC RBC Hgb Hct MCV MCH MCHC RDW Std Deviation RDW Coeff of Florina Plt Count MPV Immature Gran % (Auto) Neut % (Auto) Lymph % (Auto) [place] % (Auto) Eos % (Auto) Baso % (Auto) Absolute Neuts (auto) Absolute Lymphs (auto) Total Counted Neutrophils % (Manual) Lymphocytes % (Manual) Monocytes % (Manual) Nucleated RBC % Differential Comment Platelet Estimate RBC Morphology Anisocytosis PT INR APTT Specimen Type Sample Site pH Bicarbonate Actual Total CO2 Base Excess O2 Saturation O2 % ABG pCO2 ABG pO2 O2 Delivery Device Sodium 132 L 139 Potassium 6.4 H* 5.5 H Chloride 104 106 Carbon Dioxide 16.0 L 18.0 L Anion Gap 12 15 BUN 146 H* 139 H* Creatinine 12.40 H* 12.10 H* Estim Creat Clear Calc 5.79 5.93 Est GFR (MDRD) Af Amer 5 L 6 L Est GFR (MDRD) Non-Af 4 L 5 L BUN/Creatinine Ratio 11.8 11.5 Glucose 104 89 Lactic Acid 0.8 Calcium 9.0 8.7 Total Bilirubin 0.50 AST 20 ALT 18 Alkaline Phosphatase 107 Troponin I < 0.015 B-Natriuretic Peptide Total Protein 6.9 Albumin 2.5 L Globulin 4.4 H Albumin/Globulin Ratio 0.6 L TSH Urine Color Urine Clarity Urine pH Ur Specific [place] Urine Protein Urine Glucose (UA) Urine Ketones Urine Occult Blood Urine Nitrite Urine Bilirubin Urine Urobilinogen Ur Leukocyte Esterase Urine RBC Urine WBC Ur Squamous Epith Cells Amorphous Sediment Urine Bacteria Urine Mucus Ur Random Sodium Urine Creatinine COVID-19 ([facility]ENRY) Hep Bs Antigen Hep Bs Antibody Hep B Core Total Ab MRSA (PCR) Blood Type Antibody Screen 11/18/19 11/18/19 11/18/19 05:30 05:30 05:30 WBC 11.9 H RBC 2.43 L Hgb 8.3 L Hct 26.1 L MCV 107.4 H MCH 34.2 H MCHC 31.8 L RDW Std Deviation 56.7 H RDW Coeff of Florina 14.6 Plt Count 328 MPV 10.2 Immature Gran % (Auto) 0.800 Neut % (Auto) 81.1 H Lymph % (Auto) 5.1 L [place] % (Auto) 10.0 Eos % (Auto) 2.7 Baso % (Auto) 0.3 Absolute Neuts (auto) 9.6 H Absolute Lymphs (auto) 0.60 L Total Counted [employer]ESSING [employer]ERK Neutrophils % (Manual) 83 H Lymphocytes % (Manual) 10 L Monocytes % (Manual) 7 Nucleated RBC % 0 Differential Comment MANUAL DIFF Platelet Estimate ADEQUATE RBC Morphology NORM C+C Anisocytosis PT INR APTT Specimen Type Sample Site pH Bicarbonate Actual Total CO2 Base Excess O2 Saturation O2 % ABG pCO2 ABG pO2 O2 Delivery Device Sodium 138 Potassium 5.0 Chloride 108 H Carbon Dioxide 16.0 L Anion Gap 14 BUN 132 H* Creatinine 11.50 H* Estim Creat Clear Calc 6.24 Est GFR (MDRD) Af Amer 6 L Est GFR (MDRD) Non-Af 5 L BUN/Creatinine Ratio 11.5 Glucose 92 Lactic Acid Calcium 8.5 Total Bilirubin AST ALT Alkaline Phosphatase Troponin I < 0.015 B-Natriuretic Peptide Total Protein Albumin Globulin Albumin/Globulin Ratio TSH 1.90 Urine Color Urine Clarity Urine pH Ur Specific [place] Urine Protein Urine Glucose (UA) Urine Ketones Urine Occult Blood Urine Nitrite Urine Bilirubin Urine Urobilinogen Ur Leukocyte Esterase Urine RBC Urine WBC Ur Squamous Epith Cells Amorphous Sediment Urine Bacteria Urine Mucus Ur Random Sodium Urine Creatinine COVID-19 ([facility]) Hep Bs Antigen Hep Bs Antibody Hep B Core Total Ab MRSA (PCR) Blood Type Antibody Screen 11/18/19 11/18/19 11/18/19 05:30 06:45 06:45 WBC RBC Hgb Hct MCV MCH MCHC RDW Std Deviation RDW Coeff of Florina Plt Count MPV Immature Gran % (Auto) Neut % (Auto) Lymph % (Auto) [place] % (Auto) Eos % (Auto) Baso % (Auto) Absolute Neuts (auto) Absolute Lymphs (auto) Total Counted Neutrophils % (Manual) Lymphocytes % (Manual) Monocytes % (Manual) Nucleated RBC % Differential Comment Platelet Estimate RBC Morphology Anisocytosis PT INR APTT Specimen Type Sample Site pH Bicarbonate Actual Total CO2 Base Excess O2 Saturation O2 % ABG pCO2 ABG pO2 O2 Delivery Device Sodium Potassium Chloride Carbon Dioxide Anion Gap BUN Creatinine Estim Creat Clear Calc Est GFR (MDRD) Af Amer Est GFR (MDRD) Non-Af BUN/Creatinine Ratio Glucose Lactic Acid 0.7 Calcium Total Bilirubin AST ALT Alkaline Phosphatase Troponin I B-Natriuretic Peptide 1653.0 H Total Protein Albumin Globulin Albumin/Globulin Ratio TSH Urine Color Urine Clarity Urine pH Ur Specific [place] Urine Protein Urine Glucose (UA) Urine Ketones Urine Occult Blood Urine Nitrite Urine Bilirubin Urine Urobilinogen Ur Leukocyte Esterase Urine RBC Urine WBC Ur Squamous Epith Cells Amorphous Sediment Urine Bacteria Urine Mucus Ur Random Sodium Urine Creatinine COVID-19 ([facility]) Hep Bs Antigen Hep Bs Antibody Hep B Core Total Ab MRSA (PCR) Blood Type A POSITIVE Antibody Screen NEGATIVE 11/18/19 11/18/19 11/18/19 07:01 08:15 08:15 WBC RBC Hgb Hct MCV MCH MCHC RDW Std Deviation RDW Coeff of Florina Plt Count MPV Immature Gran % (Auto) Neut % (Auto) Lymph % (Auto) [place] % (Auto) Eos % (Auto) Baso % (Auto) Absolute Neuts (auto) Absolute Lymphs (auto) Total Counted Neutrophils % (Manual) Lymphocytes % (Manual) Monocytes % (Manual) Nucleated RBC % Differential Comment Platelet Estimate RBC Morphology Anisocytosis PT INR APTT Specimen Type ART Sample Site Art Line pH 7.23 L Bicarbonate Actual 14.8 L Total CO2 16 Base Excess -13 L O2 Saturation 93 L O2 % 2 ABG pCO2 35.3 ABG pO2 80 O2 Delivery Device Cannula Sodium Potassium Chloride Carbon Dioxide Anion Gap BUN Creatinine Estim Creat Clear Calc Est GFR (MDRD) Af Amer Est GFR (MDRD) Non-Af BUN/Creatinine Ratio Glucose Lactic Acid Calcium Total Bilirubin AST ALT Alkaline Phosphatase Troponin I B-Natriuretic Peptide Total Protein Albumin Globulin Albumin/Globulin Ratio TSH Urine Color Urine Clarity Urine pH Ur Specific [place] Urine Protein Urine Glucose (UA) Urine Ketones Urine Occult Blood Urine Nitrite Urine Bilirubin Urine Urobilinogen Ur Leukocyte Esterase Urine RBC Urine WBC Ur Squamous Epith Cells Amorphous Sediment Urine Bacteria Urine Mucus Ur Random Sodium 55 Urine Creatinine 159.00 COVID-19 ([facility]) Hep Bs Antigen Hep Bs Antibody Hep B Core Total Ab MRSA (PCR) Blood Type Antibody Screen 11/18/19 11/18/19 11/18/19 08:15 09:15 17:40 WBC RBC Hgb Hct MCV MCH MCHC RDW Std Deviation RDW Coeff of Florina Plt Count MPV Immature Gran % (Auto) Neut % (Auto) Lymph % (Auto) [place] % (Auto) Eos % (Auto) Baso % (Auto) Absolute Neuts (auto) Absolute Lymphs (auto) Total Counted Neutrophils % (Manual) Lymphocytes % (Manual) Monocytes % (Manual) Nucleated RBC % Differential Comment Platelet Estimate RBC Morphology Anisocytosis PT INR APTT Specimen Type Sample Site pH Bicarbonate Actual Total CO2 Base Excess O2 Saturation O2 % ABG pCO2 ABG pO2 O2 Delivery Device Sodium Potassium Chloride Carbon Dioxide Anion Gap BUN Creatinine Estim Creat Clear Calc Est GFR (MDRD) Af Amer Est GFR (MDRD) Non-Af BUN/Creatinine Ratio Glucose Lactic Acid Calcium Total Bilirubin AST ALT Alkaline Phosphatase Troponin I B-Natriuretic Peptide Total Protein Albumin Globulin Albumin/Globulin Ratio TSH Urine Color Urine Clarity Urine pH Ur Specific [place] Urine Protein Urine Glucose (UA) Urine Ketones Urine Occult Blood Urine Nitrite Urine Bilirubin Urine Urobilinogen Ur Leukocyte Esterase Urine RBC Urine WBC Ur Squamous Epith Cells Amorphous Sediment Urine Bacteria Urine Mucus Ur Random Sodium Urine Creatinine COVID-19 ([facility]RY) Not Detected Hep Bs Antigen Hep Bs Antibody Hep B Core Total Ab Pending MRSA (PCR) Negative Blood Type Antibody Screen 11/18/19 17:40 WBC RBC Hgb Hct MCV MCH MCHC RDW Std Deviation RDW Coeff of Florina Plt Count MPV Immature Gran % (Auto) Neut % (Auto) Lymph % (Auto) [place] % (Auto) Eos % (Auto) Baso % (Auto) Absolute Neuts (auto) Absolute Lymphs (auto) Total Counted Neutrophils % (Manual) Lymphocytes % (Manual) Monocytes % (Manual) Nucleated RBC % Differential Comment Platelet Estimate RBC Morphology Anisocytosis PT INR APTT Specimen Type Sample Site pH Bicarbonate Actual Total CO2 Base Excess O2 Saturation O2 % ABG pCO2 ABG pO2 O2 Delivery Device Sodium Potassium Chloride Carbon Dioxide Anion Gap BUN Creatinine Estim Creat Clear Calc Est GFR (MDRD) Af Amer Est GFR (MDRD) Non-Af BUN/Creatinine Ratio Glucose Lactic Acid Calcium Total Bilirubin AST ALT Alkaline Phosphatase Troponin I B-Natriuretic Peptide Total Protein Albumin Globulin Albumin/Globulin Ratio TSH Urine Color Urine Clarity Urine pH Ur Specific [place] Urine Protein Urine Glucose (UA) Urine Ketones Urine Occult Blood Urine Nitrite Urine Bilirubin Urine Urobilinogen Ur Leukocyte Esterase Urine RBC Urine WBC Ur Squamous Epith Cells Amorphous Sediment Urine Bacteria Urine Mucus Ur Random Sodium Urine Creatinine COVID-19 ([facility]) Hep Bs Antigen Pending Hep Bs Antibody Pending Hep B Core Total Ab MRSA (PCR) Blood Type Antibody Screen Microbiology 11/18/19 10:30 Stool Stool Occult Blood (SASHA) - Final Clinical Impression(s) from Imaging Studies Brain CT 11/17/19 20:04 IMPRESSION: Chronic involutional changes of the brain. Electronically Signed: Giuseppe Hernandez MD at 21:27 EDT , Service support , Chest X-Ray 11/17/19 21:10 IMPRESSION: Chronic CHF Electronically Signed: Giuseppe Hernandez MD at 21:47 EDT , Service support , Renal Ultrasound 11/18/19 06:41 IMPRESSION: Normal ultrasound of the kidneys . Electronically Signed: Chino Crowder, at 10:30 EDT , Service support , Chest X-Ray 11/18/19 07:17 IMPRESSION: Cardiomegaly. Mild vascular congestion. Stable examination Electronically Signed: Chino Samsonmaryjanechao, at 12:28 EDT , Service support , Chest X-Ray 11/18/19 15:13 IMPRESSION: The tip of the left internal jugular venous catheter is at the junction of the superior vena cava and left brachiocephalic vein. The remainder of the examination is unchanged. Electronically Signed: Chino Crowder, at 15:52 EDT , Service support , Medical Necessity - Tobacco Use Smoking Status: Never smoker Assessment/Plan All Active Problems (Last Reviewed 07/19/19 @ 22:[address] Anthony Pisano MD) Morbid obesity (Acute) Metabolic acidosis (Acute) Shock (Acute) Acute renal failure (Acute) Hyperkalemia (Acute) Acute exacerbation of CHF (congestive heart failure) (Acute) RECOMMENDATIONS: 1. Continue empiric antimicrobials. Vancomycin can be discontinued from my perspective. 2. Continue Levophed and vasopressin. Wean as tolerated to maintain a systolic blood pressure of at least 90 mmHg. 3. Continue stress dose steroids hydrocortisone 50 mg every 6 hours. 4. Continue hemodialysis per nephrology recommendations. 5. Continue appropriate ICU prophylaxis. IMPRESSIONS: 1. Undifferentiated shock Although the exact etiology for the patient's hypotension is unclear, the patient did meet 2 sirs criteria on admission with a respiratory rate greater than 20 and a temperature less than 96.8 ?F. In addition, he has evidence of end-organ dysfunction and significant hemodynamic instability requiring vasopressor support. Nevertheless, the patient's hemodynamic instability may also come as a consequence of intravascular volume depletion coupled with acute kidney injury and concurrent use of multiple antihypertensives and outpatient diuretics. Accordingly, all antihypertensives and diuretics have been placed on hold. The patient has been adequately volume resuscitated at this time. Recommend continuing Levophed and vasopressin. Continue stress dose steroids until vasopressor requirement improves. Continue empiric antimicrobials for now. I do not see an indication for any additional imaging studies, given the patient's slow clinical improvement. 2. Acute on chronic kidney disease/hyperkalemia Improving. Likely prerenal in etiology with a component of ischemic ATN in the setting of #1. Nephrology is currently following. The patient has been adequately volume resuscitated. We will continue current supportive measures with plans for ongoing hemodialysis support per nephrology recommendations. 3. Metabolic encephalopathy Resolved. Likely related to metabolic derangements in the setting of numbers 1 and 2. Avoid sedating medications. 4. Anemia The patient has had a slow downward decline in hemoglobin, without any overt signs of blood loss. We will continue to monitor H&H daily. Plan to transfuse if hemoglobin drops below 7 g/dL. Continue PPI therapy. 5. Stable abdominal wound/super morbid obesity/cardiomyopathy status post ICD/paroxysmal atrial fibrillation/questionable TEX and COPD Complicates care, management, recovery and prognosis. Continue to hold antihypertensives and baseline diuretics. Physical therapy to work with the patient. TIME: 42 minutes of critical care time, independent of procedures, was spent addressing the patient's undifferentiated shock, acute on chronic kidney disease, metabolic encephalopathy, anemia, review of all data and collaboration with the care team. [id number]) [id number] Critical care first hour
[2019-11-19 06:26] LABS: Absolute Lymphocyte Count 0.36 X10^3/uL (0.83-4.51); Absolute Neutrophil Count 11.7 X10^3/uL (2.0-7.7); Basophil# 0.03 X10^3/uL; Basophil% 0.2 % (0-1); Hematocrit 24.2 % (40-54); Lymphocyte # 0.36 X10^3/ul (4.0); Lymphocyte % 2.8 % (19-41); Mean Corp Hgb Conc 33.1 g/dL (32-36); Mean Corpuscular Hgb 34.8 pg (27.0-32.0); Mean Corpuscular Volume 105.2 fL (80-94); Mean Platelet Vol. 9.7 fl (6.2-12.0); Monocyte# 0.73 X10^3/uL; Monocyte% 5.7 % (0-10); NRBC Flagged by Analyzer 0.2 % (0-5); Neutrophil # 11.69 X10^3/uL (2.7-7.7); Neutrophil % 90.5 % (47-70); POSITIVE DIFFERENTIAL YES; Platelet Count 281 K/mm3 (150-450); RBC Distribution Width CV 15.1 % (11.6-14.6); RBC Distribution Width SD 54.9 fl (35.1-43.9); White Blood Count 12.9 K/mm3 (4.4-11.0)
[2019-11-19 06:39] LABS: Anion Gap 17 (5-15); BUN 82 mg/dL (7-18); BUN/Creat Ratio 11.8 RATIO (10-20); Calcium,Total 8.2 mg/dL (8.5-10.1); Chloride 103 mmol/L (98-107); Creatinine, Serum 6.92 mg/dL (0.70-1.30); EST Glomerular Filtration Rate 9 mL/min (>60); Est Glom Filt Rate - Afr Amer 11 mL/min (>60); Estimated Creatinine Clearance 10.37 ml/min; Glucose 101 mg/dL (74-106); Potassium 4.1 mmol/L (3.5-5.1); Sodium Level 137 mmol/L (136-145)
[2019-11-19 06:42] LABS: Differential Indicated SCAN CRITERIA MET
[2019-11-19 06:49] LABS: Differential Comment SCANNED
--- NOTE | 2019-11-19 08:47 | PCM.PROGNOTE ---
Patient Problems: Active and Suspected Problems (Last Reviewed 07/19/19 @ 22:[address] Anthony Pisano MD) Acute renal failure (Acute) Hyperkalemia (Acute) Subjective: Patient was seen and examined he still remains on vasopressor treatment, 1 of the vasopressors were discontinued from yesterday however. Patient is appropriate, he voices no complaints to this examiner, he will have dialysis again today, I talked briefly with critical care about his medical plan. We do not have definite proof that he has a septic shock picture from infection at this time, critical care did not feel that a CT of the abdominal wall was necessary at this time. - Physical Exam Vitals/I&O's: Vital Signs Temp Pulse Resp BP Pulse Ox 99.0 F 78 19 H 116/52 L 95 11/19/19 08:00 11/19/19 08:00 11/19/19 08:00 11/19/19 08:40 11/19/19 08:00 Oxygen Flow Rate (L/min) 3 Oxygen Delivery Method Nasal Cannula Weight: 178.4 kg Body Mass Index (BMI) 63.1 Intake and Output for Last 24 Hours 11/17/19 11/18/19 11/19/19 23:59 23:59 23:59 Intake Total 1000.05 / 1000.05 6776.47 / 6997.07 804.96 / 804.96 Output Total 575 / 775 900 / 900 Balance 1000.05 / 1000.05 6201.47 / 6222.07 -95.04 / -95.04 General: Alert, Oriented x3, Cooperative, No apparent distress, Well developed, Well nourished HEENT: Atraumatic, PERRLA, EOMI, Normocephalic Oral: Moist Mucosa Neck: Supple, Trachea Midline, Thyroid Normal Size and Texture Lungs: Clear to auscultation, Normal air movement, No rhonchi, No wheeze, No rales Cardiovascular: Regular rate, Regular Rhythm, Normal S1, Normal S2, No murmurs, PMI Normal, No rub noted, No Gallop Abdomen: Bowel Sounds Present, Soft, Non-Distended, Obese, - - Bandage is noted over the lower abdomen Extremities: No clubbing, No cyanosis, No edema, Capillary Refill Less than 3 Seconds Skin: No rashes, No breakdown Musculoskeletal: No Tenderness to Palpation of Joints or Extremities Neurological: Cranial nerves II-XII grossly intact, Sensory exam intact to light touch and pain, Coordination normal Psych/Mental Status: Normal Affect, Appropriate Microbiology Past 72 Hours 11/18/19 10:30 Stool Stool Occult Blood (SASHA) - Final Laboratory Results 11/18/19 05:30: B-Natriuretic Peptide 1653.0 H 11/18/19 07:01: Specimen Type ART, Sample Site Art Line, pH 7.23 L, Bicarbonate Actual 14.8 L, Total CO2 16, Base Excess -13 L, O2 Saturation 93 L, O2 % 2, ABG pCO2 35.3, ABG pO2 80, O2 Delivery Device Cannula 11/18/19 08:15: Urine Creatinine 159.00 11/18/19 08:15: MRSA (PCR) Negative 11/18/19 09:15: COVID-19 ([facility]) Not Detected 11/18/19 17:40: Hep B Core Total Ab Pending 11/18/19 17:40: Hep Bs Antigen Pending, Hep Bs Antibody Pending 11/19/19 05:20: WBC 12.9 H, RBC 2.30 L, Hgb 8.0 L, Hct 24.2 L, MCV 105.2 H, MCH 34.8 H, MCHC 33.1, RDW Std Deviation 54.9 H, RDW Coeff of Florina 15.1 H, Plt Count 281, MPV 9.7, Immature Gran % (Auto) 0.800, Neut % (Auto) 90.5 H, Lymph % (Auto) 2.8 L, [place] % (Auto) 5.7, Eos % (Auto) 0.0, Baso % (Auto) 0.2, Absolute Neuts (auto) 11.7 H, Absolute Lymphs (auto) 0.36 L, Nucleated RBC % 0.2, Differential Comment SCANNED 11/19/19 05:20: Sodium 137, Potassium 4.1, Chloride 103, Carbon Dioxide 17.0 L, Anion Gap 17 H, BUN 82 H, Creatinine 6.92 H, Estim Creat Clear Calc 10.37, Est GFR (MDRD) Af Amer 11 L, Est GFR (MDRD) Non-Af 9 L, BUN/Creatinine Ratio 11.8, Glucose 101, Calcium 8.2 L Current Medications Acetaminophen (Tylenol) 650 mg PO Q4H PRN PRN PRN Reason: fever, pain 1-01/02 Last Admin: 11/19/19 05:26 Dose: 650 mg Documented by: Amiodarone HCl (Cordarone) 400 mg PO DAILYCM [facility] Last Admin: 11/18/19 06:59 Dose: Not Given Documented by: Bupropion HCl (Wellbutrin Tablets) 100 mg PO DAILY [facility] Last Admin: 11/18/19 08:05 Dose: 100 mg Documented by: Cholecalciferol (Vitamin D (25mcg)) 3,000 unit PO DAILY [facility] Last Admin: 11/18/19 08:05 Dose: 3,000 unit Documented by: Cyanocobalamin (Vitamin B12) 1,000 mcg PO DAILY [facility] Last Admin: 11/18/19 08:04 Dose: 1,000 mcg Documented by: Diazepam (Valium) 5 mg PO 4X/DAY PRN PRN PRN Reason: SPASMS Last Admin: 11/19/19 05:26 Dose: 5 mg Documented by: Docusate Sodium (Colace) 100 mg PO BID [facility] Last Admin: 11/18/19 21:22 Dose: 100 mg Documented by: Heparin Sodium (Beef Lung) () 50 units IV UD PRN PRN Reason: PICC Line Heparin Flush Heparin Sodium (Porcine) (Heparin Na) 5,000 unit SC Q8 [facility] Last Admin: 11/19/19 05:26 Dose: 5,000 unit Documented by: Hydrocortisone Sodium Succinate (Solu-Cortef) 50 mg IV Q6 [facility] Last Admin: 11/19/19 05:27 Dose: 50 mg Documented by: Norepinephrine Bitartrate 8 mg (/ Sodium Chloride) 250 mls @ 9.375 mls/hr CONT INF .[id number] [facility]; Protocol Last Titration: 11/19/19 08:40 Dose: 20 mcg/min, 37.5 mls/hr Documented by: Vasopressin 20 units/ Sodium (Chloride) 25 mls @ 3 mls/hr IV .Q8H20M [facility] Last Admin: 11/19/19 08:41 Dose: 0.04 units/min, 3 mls/hr Documented by: Pantoprazole Sodium 40 mg/ (Sodium Chloride) 110 mls @ 330 mls/hr IV Q12 [facility] Last Infusion: 11/18/19 21:42 Dose: Infused Documented by: Piperacillin Sod/Tazobactam (Sod 3.375 gm/ Sodium Chloride) 50 mls @ 12.5 mls/hr IV Q12 [facility] Last Infusion: 11/19/19 02:12 Dose: Infused Documented by: Phenylephrine HCl 40 mg/ (Sodium Chloride) 250 mls @ 41.25 mls/hr CONT INF .Q6H4M [facility]; Protocol Last Admin: 11/19/19 07:10 Dose: Not Given Documented by: Levothyroxine Sodium (Synthroid) 25 mcg PO DAILY@0600 [facility] Last Admin: 11/19/19 05:26 Dose: 25 mcg Documented by: Multivitamins/Minerals (Multivitamin With Minerals (Bkc)) 2 tablet PO DAILYCM [facility] Last Admin: 11/18/19 08:04 Dose: 2 tablet Documented by: Sertraline HCl (Zoloft) 50 mg PO BID [facility] Last Admin: 11/18/19 21:22 Dose: 50 mg Documented by: Sodium Chloride () 10 - 40 ml IV UD PRN PRN Reason: Open End PICC Flush Last Admin: 11/18/19 08:03 Dose: 20 ml Documented by: Sodium Chloride (0.9% Nacl (Sterile) Posiflush) 10 - 40 ml IV UD PRN PRN Reason: Port access or dressing change Sodium Hypochlorite (Dakins Solution 0.25% (1/2 Strength)) 1 applic TOPICAL BID [facility]; Protocol Last Admin: 11/19/19 08:15 Dose: Not Given Documented by: Tolterodine Tartrate (Detrol La) 4 mg PO DAILY [facility] Last Admin: 11/18/19 08:04 Dose: 4 mg Documented by: Medical Necessity - Tobacco Use Smoking Status: Never smoker Assessment/Plan All Active Problems (Last Reviewed 07/19/19 @ 22:[address] Anthony Pisano MD) Acute renal failure (Acute) Hyperkalemia (Acute) Acute exacerbation of CHF (congestive heart failure) (Acute) #1 acute shock-etiology unclear at this point, it may be due to septic shock or secondary to hypovolemia-for now, patient remains on IV antibiotics, cultures are pending at this time #2 acute renal failure-etiology unclear, possibly ATN from hypotension, patient will undergo dialysis today, nephrology is participating in his care #3 metabolic encephalopathy-improved #4 morbid obesity #5 anemia-etiology unclear at this point, labs will be monitored, hemoglobin today was 8-essentially unchanged from yesterday #6 large abdominal wound status post panniculectomy-wound care is participating in his care #7 hyperkalemia-resolved
--- NOTE | 2019-11-19 09:01 | PCM.PN.REN ---
Patient Problems: Active and Suspected Problems (Last Reviewed 07/19/19 @ 22:[address] Anthony Pisano MD) Morbid obesity (Acute) Metabolic acidosis (Acute) Shock (Acute) Acute renal failure (Acute) Hyperkalemia (Acute) Subjective: received hemodialysis last night without fluid removal due to hypotension. Tolerated well. Remains on pressors this morning. Urine output improved to 175cc/q2hrs, 1300cc overnight. Denies CP, SOB. Still with anorexia with metallic taste. COVID negative. Plan for dialysis #2 today run even. Seen at start of hemodialysis. Discussed dialysis orders with nursing staff. - Physical Exam Vitals/I&O's: Vital Signs Temp Pulse Resp BP Pulse Ox 99.0 F 78 19 H 116/52 L 95 11/19/19 08:00 11/19/19 08:00 11/19/19 08:00 11/19/19 08:40 11/19/19 08:00 Oxygen Flow Rate (L/min) 3 Oxygen Delivery Method Nasal Cannula Weight: 178.4 kg Body Mass Index (BMI) 63.1 Intake and Output for Last 24 Hours 11/17/19 11/18/19 11/19/19 23:59 23:59 23:59 Intake Total 1000.05 / 1000.05 6776.47 / 6997.07 804.96 / 804.96 Output Total 575 / 775 900 / 900 Balance 1000.05 / 1000.05 6201.47 / 6222.07 -95.04 / -95.04 General: Alert, Oriented x3, Cooperative, No apparent distress, - - lying flat in bed Oral: Dry Mucosa Neck: Supple Lungs: Clear to auscultation Cardiovascular: Regular rate, No rub noted Abdomen: Bowel Sounds Present, Soft, Non Tender, Non-Distended, Obese Extremities: No edema Skin: Ulcer/ Wound - packed, dressing applied lower abdomen Musculoskeletal: - - gen weakness Neurological: Cranial nerves II-XII grossly intact, - - no tremor Psych/Mental Status: Normal Affect, Appropriate, Alert and oriented to time, place, person, mood and affect Microbiology Past 72 Hours 11/18/19 10:30 Stool Stool Occult Blood (SASHA) - Final Laboratory Results 11/18/19 07:01: Specimen Type ART, Sample Site Art Line, pH 7.23 L, Bicarbonate Actual 14.8 L, Total CO2 16, Base Excess -13 L, O2 Saturation 93 L, O2 % 2, ABG pCO2 35.3, ABG pO2 80, O2 Delivery Device Cannula 11/18/19 08:15: MRSA (PCR) Negative 11/18/19 09:15: COVID-19 ([facility]RY) Not Detected 11/18/19 17:40: Hep B Core Total Ab Pending 11/18/19 17:40: Hep Bs Antigen Pending, Hep Bs Antibody Pending 11/19/19 05:20: WBC 12.9 H, RBC 2.30 L, Hgb 8.0 L, Hct 24.2 L, MCV 105.2 H, MCH 34.8 H, MCHC 33.1, RDW Std Deviation 54.9 H, RDW Coeff of Florina 15.1 H, Plt Count 281, MPV 9.7, Immature Gran % (Auto) 0.800, Neut % (Auto) 90.5 H, Lymph % (Auto) 2.8 L, [place] % (Auto) 5.7, Eos % (Auto) 0.0, Baso % (Auto) 0.2, Absolute Neuts (auto) 11.7 H, Absolute Lymphs (auto) 0.36 L, Nucleated RBC % 0.2, Differential Comment SCANNED 11/19/19 05:20: Sodium 137, Potassium 4.1, Chloride 103, Carbon Dioxide 17.0 L, Anion Gap 17 H, BUN 82 H, Creatinine 6.92 H, Estim Creat Clear Calc 10.37, Est GFR (MDRD) Af Amer 11 L, Est GFR (MDRD) Non-Af 9 L, BUN/Creatinine Ratio 11.8, Glucose 101, Calcium 8.2 L Current Medications Acetaminophen (Tylenol) 650 mg PO Q4H PRN PRN PRN Reason: fever, pain -01/02 Last Admin: 11/19/19 05:26 Dose: 650 mg Documented by: [facility]) [facility] Last Admin: 11/18/19 06:59 Dose: Not Given Documented by: Bupropion HCl (Wellbutrin Tablets) 100 mg PO DAILY [facility] Last Admin: 11/18/19 08:05 Dose: 100 mg Documented by: Cholecalciferol (Vitamin D (25mcg)) 3,000 unit PO DAILY [facility] Last Admin: 11/18/19 08:05 Dose: 3,000 unit Documented by: Cyanocobalamin (Vitamin B12) 1,000 mcg PO DAILY [facility] Last Admin: 11/18/19 08:04 Dose: 1,000 mcg Documented by: Diazepam (Valium) 5 mg PO 4X/DAY PRN PRN PRN Reason: SPASMS Last Admin: 11/19/19 05:26 Dose: 5 mg Documented by: Docusate Sodium (Colace) 100 mg PO BID [facility] Last Admin: 11/18/19 21:22 Dose: 100 mg Documented by: Heparin Sodium (Beef Lung) () 50 units IV UD PRN PRN Reason: PICC Line Heparin Flush Heparin Sodium (Porcine) (Heparin Na) 5,000 unit SC Q8 [facility] Last Admin: 11/19/19 05:26 Dose: 5,000 unit Documented by: Hydrocortisone Sodium Succinate (Solu-Cortef) 50 mg IV Q6 [facility] Last Admin: 11/19/19 05:27 Dose: 50 mg Documented by: Norepinephrine Bitartrate 8 mg (/ Sodium Chloride) 250 mls @ 9.375 mls/hr CONT INF .A46L02M [facility]; Protocol Last Titration: 11/19/19 08:40 Dose: 20 mcg/min, 37.5 mls/hr Documented by: Vasopressin 20 units/ Sodium (Chloride) 25 mls @ 3 mls/hr IV .Q8H20M [facility] Last Admin: 11/19/19 08:41 Dose: 0.04 units/min, 3 mls/hr Documented by: Pantoprazole Sodium 40 mg/ (Sodium Chloride) 110 mls @ 330 mls/hr IV Q12 [facility] Last Infusion: 11/18/19 21:42 Dose: Infused Documented by: Piperacillin Sod/Tazobactam (Sod 3.375 gm/ Sodium Chloride) 50 mls @ 12.5 mls/hr IV Q12 [facility] Last Infusion: 11/19/19 02:12 Dose: Infused Documented by: Phenylephrine HCl 40 mg/ (Sodium Chloride) 250 mls @ 41.25 mls/hr CONT INF .Q6H4M [facility]; Protocol Last Admin: 11/19/19 07:10 Dose: Not Given Documented by: Levothyroxine Sodium (Synthroid) 25 mcg PO DAILY@0600 [facility] Last Admin: 11/19/19 05:26 Dose: 25 mcg Documented by: Multivitamins/Minerals (Multivitamin With Minerals (Bkc)) 2 tablet PO DAILYCM [facility] Last Admin: 11/18/19 08:04 Dose: 2 tablet Documented by: Sertraline HCl (Zoloft) 50 mg PO BID [facility] Last Admin: 11/18/19 21:22 Dose: 50 mg Documented by: Sodium Chloride () 10 - 40 ml IV UD PRN PRN Reason: Open End PICC Flush Last Admin: 11/18/19 08:03 Dose: 20 ml Documented by: Sodium Chloride (0.9% Nacl (Sterile) Posiflush) 10 - 40 ml IV UD PRN PRN Reason: Port access or dressing change Sodium Hypochlorite (Dakins Solution 0.25% (1/2 Strength)) 1 applic TOPICAL BID [facility]; Protocol Last Admin: 11/19/19 08:15 Dose: Not Given Documented by: Tolterodine Tartrate (Detrol La) 4 mg PO DAILY [facility] Last Admin: 11/18/19 08:04 Dose: 4 mg Documented by: Medical Necessity - Tobacco Use Smoking Status: Never smoker Assessment/Plan All Active Problems (Last Reviewed 07/19/19 @ 22:[address] Anthony Pisano MD) Morbid obesity (Acute) Metabolic acidosis (Acute) Shock (Acute) Acute renal failure (Acute) Hyperkalemia (Acute) Acute exacerbation of CHF (congestive heart failure) (Acute) 1. Anuric Acute renal failure with increased urine output overnight. Hemodialysis with temp dialysis catheter last night without incident. HD #2 today. Run even. Still with mild uremic symptoms, metabolic acidosis. May be recovering renal fxn. Hold dialysis tomorrow. 2. Acute hyperkalemia resolved. 3. Chronic abdominal wound on iv antibx at F with PICC line. WBC 12.9K today. renal dose iv antibx. Bld cx pending 4. Septic shock, hypotension on pressors. Await bld cx 5. Morbid obesity 6. TEX on BIPAP 7. Hx DVT on anticoagulation.
--- NOTE | 2019-11-19 09:54 | CASEMGMT ---
BEATRICE met with patient, introduced self and role at [facility]. BEATRICE asked patient if his plan is to return to [facility] at d/c. He said he would prefer to go home. BEATRICE told him we will have to see how he does with therapy, but if he cannot return home is his plan to return to [facility]. He said he guesses that would be the plan. He asked what other facilities there were that he could go to. BEATRICE asked if he did not like [facility]. He said it was kind of dreary from what he remembers. BEATRICE told him we will continue to follow. Lesly SERNA MSW
[2019-11-19 10:03] LABS: Hepatitis B Surface Antibody Non-Reactive; Hepatitis B Surface Antigen Non-Reactive (Nonreactive)
--- NOTE | 2019-11-19 10:27 | CASEMGMT ---
BEATRICE received a message that Camryn Garcia from [facility] called regarding d/c plans for patient. BEATRICE called Camryn back and left her a voice mail letting her know the plan is to return to [facility] when ready. Lesly SERNA MSW
--- NOTE | 2019-11-19 11:20 | PN_ITS ---
Progress Note I was called for dialysis access. The intensive care team was able to get a temporary line in the left IJ. We will continue to follow in case tunneling is necessary in the future. Nilson Blunt MD Pager: [facility] [address] [place] [address], [address] [place] [address] Office: [facility] Vital Signs/Narrative: Vital Signs Temp Pulse Resp BP BP Pulse Ox 11/19/19 11:00 84 24 H 111/51 L 3 11/19/19 10:45 93 25 H 101/62 3 11/19/19 10:30 94 23 H 88/45 L 3 11/19/19 10:15 89 21 H 93/55 L 3 11/19/19 10:00 99.0 F 84 25 H 98/65 93/45 L 3 11/19/19 09:45 89 104/56 L 11/19/19 09:35 79 94/47 L 11/19/19 09:15 82 99/48 L 11/19/19 09:00 99.0 F 78 23 H 108/55 L 95 11/19/19 08:40 116/52 L 11/19/19 08:00 99.0 F 78 19 H 105/50 L 95 11/19/19 07:54 80 95/45 L 11/19/19 07:30 99.1 F 80 26 H 97/48 L 93
[2019-11-19] MEDS: Cyanocobalamin 500 MCG Tablet 1000 MCG PO (13:19)
[2019-11-19] MEDS: Tolterodine Tartrate 4 MG CAP.SA PO (13:19)
[2019-11-19] MEDS: Amiodarone 200 MG Tablet 400 MG PO (13:19)
[2019-11-19] MEDS: Multivitamins,Ther W-Minerals Tablet 2 TABLET PO (13:19)
[2019-11-19] MEDS: Juven (unflavored) Packet 1 PACKET PO ×2 (13:19→18:02)
[2019-11-19] MEDS: Docusate Sodium 100 MG Capsule PO ×2 (13:19→21:12)
[2019-11-19] MEDS: Sertraline 50 MG Tablet PO ×2 (13:20→21:12)
[2019-11-19] MEDS: buPROPion 100 MG Tablet PO (13:20)
--- NOTE | 2019-11-19 15:01 | DIALYSIS ---
HD x3 hours completed at 1150 on a 3K bath, 2nd tx, tolerated well, on pressors, UF 0mL, accessed via left neck temporary dialysis catheter, worked well, no dialysis scheduled for
--- NOTE | 2019-11-19 22:42 | PN.SURG_ITS ---
Patient Problems: Active and Suspected Problems (Last Reviewed 07/19/19 @ 22:[address] Anthony Pisano MD) Acute renal failure (Acute) Hyperkalemia (Acute) Subjective: Patient is known to me and was seen at the wound center on 11/17/2019, he denied any complaints at that time. He was discharged back to the care home for wound care of his abdominal wound and wound VAC management. The surgical wound is a result from his surgery on 10/21/19. Wound cultures from 11/03/19 were positive for Enterobacter cloacae, Enterococcus faecalis, and Proteus mirabilis. He had a PICC line placed and Zosyn was started to treat the bacteria. He has been at [facility] to help manage his wound VAC. Today patient resting comfortably in bed. He complains of feeling confused and foggy. Denies any complaints of pain at this time from abdominal surgical wound. - Physical Exam Vitals/I&O's: Vital Signs Temp Pulse Resp BP Pulse Ox 99.2 F H 91 23 H 120/50 L 2 11/19/19 12:00 11/19/19 19:31 11/19/19 17:00 11/19/19 17:00 11/19/19 17:00 Oxygen Flow Rate (L/min) 93 Oxygen Delivery Method Nasal Cannula Weight: 393 lb 4.874 oz Body Mass Index (BMI) 63.1 Intake and Output for Last 24 Hours 11/17/19 11/18/19 11/19/19 23:59 23:59 23:59 Intake Total 1000.05 / 1000.05 6776.47 / 6997.07 1596.70 / 1596.70 Output Total 575 / 775 1780 / 1780 Balance 1000.05 / 1000.05 6201.47 / 6222.07 -183.30 / -183.30 General: Alert, Cooperative, No apparent distress HEENT: Atraumatic Oral: Moist Mucosa Lungs: Normal air movement Cardiovascular: Regular rate Abdomen: Obese Extremities: Capillary Refill Less than 3 Seconds Skin: Ulcer/ Wound - Right lower abdominal wound with wound VAC in place. Julia wound looks stable. Intertrigo in pannus creases. Neurological: Cranial nerves II-XII grossly intact Psych/Mental Status: Normal Affect Microbiology Past 72 Hours 11/17/19 20:28 Urine Catheter - Catheter Urine Culture - Preliminary Culture exhibits no growth. 11/18/19 10:30 Stool Stool Occult Blood (SASHA) - Final Laboratory Results 11/18/19 17:40: Hep Bs Antigen Non-Reactive, Hep Bs Antibody Non-Reactive 11/19/19 05:20: WBC 12.9 H, RBC 2.30 L, Hgb 8.0 L, Hct 24.2 L, MCV 105.2 H, MCH 34.8 H, MCHC 33.1, RDW Std Deviation 54.9 H, RDW Coeff of Florina 15.1 H, Plt Count 281, MPV 9.7, Immature Gran % (Auto) 0.800, Neut % (Auto) 90.5 H, Lymph % (Auto) 2.8 L, [place] % (Auto) 5.7, Eos % (Auto) 0.0, Baso % (Auto) 0.2, Absolute Neuts (auto) 11.7 H, Absolute Lymphs (auto) 0.36 L, Nucleated RBC % 0.2, Differential Comment SCANNED 11/19/19 05:20: Sodium 137, Potassium 4.1, Chloride 103, Carbon Dioxide 17.0 L, Anion Gap 17 H, BUN 82 H, Creatinine 6.92 H, Estim Creat Clear Calc 10.37, Est GFR (MDRD) Af Amer 11 L, Est GFR (MDRD) Non-Af 9 L, BUN/Creatinine Ratio 11.8, Glucose 101, Calcium 8.2 L 11/19/19 22:05: Troponin I Pending Current Medications Acetaminophen (Tylenol) 650 mg PO Q4H PRN PRN PRN Reason: fever, pain -01/02 Last Admin: 11/19/19 21:13 Dose: 650 mg Documented by: [facility]) [facility] Last Admin: 11/19/19 13:19 Dose: 400 mg Documented by: Bupropion HCl (Wellbutrin Tablets) 100 mg PO DAILY [facility] Last Admin: 11/19/19 13:20 Dose: 100 mg Documented by: Cholecalciferol (Vitamin D (25mcg)) 3,000 unit PO DAILY [facility] Last Admin: 11/19/19 13:18 Dose: 3,000 unit Documented by: Cyanocobalamin (Vitamin B12) 1,000 mcg PO DAILY [facility] Last Admin: 11/19/19 13:19 Dose: 1,000 mcg Documented by: Diazepam (Valium) 5 mg PO 4X/DAY PRN PRN PRN Reason: SPASMS Last Admin: 11/19/19 05:26 Dose: 5 mg Documented by: Docusate Sodium (Colace) 100 mg PO BID [facility] Last Admin: 11/19/19 21:12 Dose: 100 mg Documented by: Heparin Sodium (Beef Lung) () 50 units IV UD PRN PRN Reason: PICC Line Heparin Flush Heparin Sodium (Porcine) (Heparin Na) 5,000 unit SC Q8 [facility] Last Admin: 11/19/19 21:12 Dose: 5,000 unit Documented by: Hydrocortisone Sodium Succinate (Solu-Cortef) 50 mg IV Q6 [facility] Last Admin: 11/19/19 18:02 Dose: 50 mg Documented by: Norepinephrine Bitartrate 8 mg (/ Sodium Chloride) 250 mls @ 9.375 mls/hr CONT INF .[id number] [facility]; Protocol Last Titration: 11/19/19 17:00 Dose: 10 mcg/min, 18.8 mls/hr Documented by: Vasopressin 20 units/ Sodium (Chloride) 25 mls @ 3 mls/hr IV .Q8H20M [facility] Last Admin: 11/19/19 21:19 Dose: Not Given Documented by: Pantoprazole Sodium 40 mg/ (Sodium Chloride) 110 mls @ 330 mls/hr IV Q12 [facility] Last Infusion: 11/19/19 21:35 Dose: Infused Documented by: Piperacillin Sod/Tazobactam (Sod 3.375 gm/ Sodium Chloride) 50 mls @ 12.5 mls/hr IV Q12 [facility] Last Admin: 11/19/19 21:29 Dose: 12.5 mls/hr Documented by: Levothyroxine Sodium (Synthroid) 25 mcg PO DAILY@0600 [facility] Last Admin: 11/19/19 05:26 Dose: 25 mcg Documented by: Multivitamins/Minerals (Multivitamin With Minerals (Bkc)) 2 tablet PO DAILYCM [facility] Last Admin: 11/19/19 13:19 Dose: 2 tablet Documented by: Sertraline HCl (Zoloft) 50 mg PO BID [facility] Last Admin: 11/19/19 21:12 Dose: 50 mg Documented by: Sodium Chloride () 10 - 40 ml IV UD PRN PRN Reason: Open End PICC Flush Last Admin: 11/18/19 08:03 Dose: 20 ml Documented by: Sodium Chloride (0.9% Nacl (Sterile) Posiflush) 10 - 40 ml IV UD PRN PRN Reason: Port access or dressing change Tolterodine Tartrate (Detrol La) 4 mg PO DAILY [facility] Last Admin: 11/19/19 13:19 Dose: 4 mg Documented by: Medical Necessity - Tobacco Use Smoking Status: Never smoker Assessment/Plan All Active Problems (Last Reviewed 07/19/19 @ 22:[address] Anthony Pisano MD) Morbid obesity (Acute) Metabolic acidosis (Acute) Shock (Acute) Acute renal failure (Acute) Hyperkalemia (Acute) Acute exacerbation of CHF (congestive heart failure) (Acute) 1. Morbid obesity 2. Metabolic Acidosis 3. Shock 4. Acute exacerbation of CHF Medicine managing 5. Acute renal failure 6. Hyperkalemia Nephrology managing 7. Opened wound right lower abdomen 8. Wound infection after surgery 9. Intertrigo Continue wound VAC at 150 mmHg. Continue Zosyn antibiotics for wound infection Follow up at wound center as previously scheduled for wound management.
[2019-11-20] VITALS (36 sets, daily range): BP systolic 92–128; BP diastolic 42–81; PULSE 73–115; RESP 14–32; TEMP 36.8–37.3; O2SAT 90–100
[2019-11-20] MEDS: Hydrocortisone Sod Succinate 100 MG/2 ML Vial 50 MG IV ×4 (00:04→21:38)
[2019-11-20] MEDS: 0.9% Saline Lock 10 ML Syringe IV ×4 (01:29→21:49)
[2019-11-20] MEDS: Heparin Injection (Vial) 5,000 UNIT/ML VIAL 5000 UNIT SC ×3 (04:57→21:37)
[2019-11-20] MEDS: Levothyroxine 25 MCG TABLET PO (04:58)
[2019-11-20 05:01] LABS: Absolute Lymphocyte Count 0.24 X10^3/uL (0.83-4.51); Absolute Neutrophil Count 6.6 X10^3/uL (2.0-7.7); Basophil# 0.02 X10^3/uL; Basophil% 0.3 % (0-1); Eosinophil# 0.01 X10^3/uL; Eosinophils% 0.1 % (0-5); Hematocrit 22.1 % (40-54); Hemoglobin 7.1 g/dL (13.0-16.5); Lymphocyte # 0.24 X10^3/ul (4.0); Lymphocyte % 3.2 % (19-41); Mean Corp Hgb Conc 32.1 g/dL (32-36); Mean Corpuscular Volume 108.9 fL (80-94); Mean Platelet Vol. 9.2 fl (6.2-12.0); Monocyte# 0.56 X10^3/uL; Monocyte% 7.5 % (0-10); NRBC Flagged by Analyzer 0 % (0-5); Neutrophil % 88.1 % (47-70); POSITIVE DIFFERENTIAL YES; Platelet Count 184 K/mm3 (150-450); RBC Distribution Width CV 15.5 % (11.6-14.6); RBC Distribution Width SD 58.9 fl (35.1-43.9); Red Blood Count 2.03 M/mm3 (4.6-6.2); White Blood Count 7.5 K/mm3 (4.4-11.0)
[2019-11-20 05:03] LABS: Differential Indicated SCAN CRITERIA MET
[2019-11-20 05:25] LABS: Vancomycin, Random Level 8.5 ug/mL (0.0-15.0)
[2019-11-20 05:26] LABS: Anion Gap 9 (5-15); BUN 51 mg/dL (7-18); BUN/Creat Ratio 12.6 RATIO (10-20); Calcium,Total 8.3 mg/dL (8.5-10.1); Chloride 104 mmol/L (98-107); Creatinine, Serum 4.05 mg/dL (0.70-1.30); EST Glomerular Filtration Rate 16 mL/min (>60); Est Glom Filt Rate - Afr Amer 20 mL/min (>60); Estimated Creatinine Clearance 17.72 ml/min; Glucose 99 mg/dL (74-106); Potassium 3.6 mmol/L (3.5-5.1); Sodium Level 141 mmol/L (136-145)
--- NOTE | 2019-11-20 06:07 | PCM.PN.INT ---
Subjective: The patient was seen and examined at the bedside this morning. Events from the last 24 hours have been reviewed. The patient is currently afebrile, hemodynamically stable and maintaining appropriate oxygen saturations on room air. Overnight, the patient was able to be weaned completely off of all forms of vasopressor support. Per nursing report, the patient did complain of chest pain overnight. Cardiac enzymes were cycled but not found to be significantly elevated. Creatinine has improved to 4.05. Hemoglobin is down to 7.1 g/dL. The patient did tolerate hemodialysis yesterday without any fluid removal. The patient is currently documented to be overall net +6.8 L for the hospital admission. Objective: The patient's most recent lab work, culture data and imaging studies have all been personally reviewed. Renal ultrasound was unremarkable. Coronavirus PCR was negative. MRSA screen was negative. Blood and urine cultures have shown no growth to date. General: Alert, Cooperative, No apparent distress, - - Morbidly Obese HEENT: Atraumatic, Normocephalic Oral: No Gingival or Mucosal Lesions/ Ulcerations Neck: Supple, No Nodes, Trachea Midline, - - Stable left-sided temporary hemodialysis line Lungs: No rhonchi, No wheeze, No rales, Diminished Cardiovascular: Regular rate, Regular Rhythm Abdomen: Bowel Sounds Present, Soft, Non Tender, Obese Extremities: No clubbing, No cyanosis Skin: - - No significant change from previous Musculoskeletal: No Muscle Wasting Lymphatic: No Cervical, Supraclavicular, or Inguinal Adenopathy Neurological: Cranial nerves II-XII grossly intact, Neuro grossly intact Psych/Mental Status: Normal Affect, Appropriate Vital Signs Temp Pulse Resp BP Pulse Ox 98.3 F 87 20 H 94/53 L 90 11/20/19 06:00 11/20/19 06:00 11/20/19 06:00 11/20/19 06:00 11/20/19 06:00 Oxygen Flow Rate (L/min) 2 Oxygen Delivery Method Room Air Weight: 393 lb 4.874 oz Body Mass Index (BMI) 63.1 Intake and Output for Last 24 Hours 11/18/19 11/19/19 11/20/19 23:59 23:59 23:59 Intake Total 6776.47 / 6997.07 1697.75 / 1707.15 61.75 / 61.75 Output Total 575 / 775 1780 / 1830 300 / 300 Balance 6201.47 / 6222.07 -82.25 / -122.85 -238.25 / -238.25 Labs (Last 48 Hours) 11/18/19 11/18/19 11/18/19 05:30 05:30 05:30 WBC 11.9 H RBC 2.43 L Hgb 8.3 L Hct 26.1 L MCV 107.4 H MCH 34.2 H MCHC 31.8 L RDW Std Deviation 56.7 H RDW Coeff of Florina 14.6 Plt Count 328 MPV 10.2 Immature Gran % (Auto) 0.800 Neut % (Auto) 81.1 H Lymph % (Auto) 5.1 L [place] % (Auto) 10.0 Eos % (Auto) 2.7 Baso % (Auto) 0.3 Absolute Neuts (auto) 9.6 H Absolute Lymphs (auto) 0.60 L Total Counted [employer] Neutrophils % (Manual) 83 H Lymphocytes % (Manual) 10 L Monocytes % (Manual) 7 Nucleated RBC % 0 Differential Comment MANUAL DIFF Platelet Estimate ADEQUATE RBC Morphology NORM C+C Specimen Type Sample Site pH Bicarbonate Actual Total CO2 Base Excess O2 Saturation O2 % ABG pCO2 ABG pO2 O2 Delivery Device Sodium 138 Potassium 5.0 Chloride 108 H Carbon Dioxide 16.0 L Anion Gap 14 BUN 132 H* Creatinine 11.50 H* Estim Creat Clear Calc 6.24 Est GFR (MDRD) Af Amer 6 L Est GFR (MDRD) Non-Af 5 L BUN/Creatinine Ratio 11.5 Glucose 92 Lactic Acid Calcium 8.5 Troponin I < 0.015 B-Natriuretic Peptide TSH 1.90 Ur Random Sodium Urine Creatinine Random Vancomycin COVID-19 ([facility]) Hep Bs Antigen Hep Bs Antibody Hep B Core Total Ab MRSA (PCR) Blood Type Antibody Screen 11/18/19 11/18/19 11/18/19 05:30 06:45 06:45 WBC RBC Hgb Hct MCV MCH MCHC RDW Std Deviation RDW Coeff of Florina Plt Count MPV Immature Gran % (Auto) Neut % (Auto) Lymph % (Auto) [place] % (Auto) Eos % (Auto) Baso % (Auto) Absolute Neuts (auto) Absolute Lymphs (auto) Total Counted Neutrophils % (Manual) Lymphocytes % (Manual) Monocytes % (Manual) Nucleated RBC % Differential Comment Platelet Estimate RBC Morphology Specimen Type Sample Site pH Bicarbonate Actual Total CO2 Base Excess O2 Saturation O2 % ABG pCO2 ABG pO2 O2 Delivery Device Sodium Potassium Chloride Carbon Dioxide Anion Gap BUN Creatinine Estim Creat Clear Calc Est GFR (MDRD) Af Amer Est GFR (MDRD) Non-Af BUN/Creatinine Ratio Glucose Lactic Acid 0.7 Calcium Troponin I B-Natriuretic Peptide 1653.0 H TSH Ur Random Sodium Urine Creatinine Random Vancomycin COVID-19 ([facility]) Hep Bs Antigen Hep Bs Antibody Hep B Core Total Ab MRSA (PCR) Blood Type A POSITIVE Antibody Screen NEGATIVE 11/18/19 11/18/19 11/18/19 07:01 08:15 08:15 WBC RBC Hgb Hct MCV MCH MCHC RDW Std Deviation RDW Coeff of Lforina Plt Count MPV Immature Gran % (Auto) Neut % (Auto) Lymph % (Auto) [place] % (Auto) Eos % (Auto) Baso % (Auto) Absolute Neuts (auto) Absolute Lymphs (auto) Total Counted Neutrophils % (Manual) Lymphocytes % (Manual) Monocytes % (Manual) Nucleated RBC % Differential Comment Platelet Estimate RBC Morphology Specimen Type ART Sample Site Art Line pH 7.23 L Bicarbonate Actual 14.8 L Total CO2 16 Base Excess -13 L O2 Saturation 93 L O2 % 2 ABG pCO2 35.3 ABG pO2 80 O2 Delivery Device Cannula Sodium Potassium Chloride Carbon Dioxide Anion Gap BUN Creatinine Estim Creat Clear Calc Est GFR (MDRD) Af Amer Est GFR (MDRD) Non-Af BUN/Creatinine Ratio Glucose Lactic Acid Calcium Troponin I B-Natriuretic Peptide TSH Ur Random Sodium 55 Urine Creatinine 159.00 Random Vancomycin COVID-19 ([facility]) Hep Bs Antigen Hep Bs Antibody Hep B Core Total Ab MRSA (PCR) Blood Type Antibody Screen 11/18/19 11/18/19 11/18/19 08:15 09:15 17:40 WBC RBC Hgb Hct MCV MCH MCHC RDW Std Deviation RDW Coeff of Florina Plt Count MPV Immature Gran % (Auto) Neut % (Auto) Lymph % (Auto) [place] % (Auto) Eos % (Auto) Baso % (Auto) Absolute Neuts (auto) Absolute Lymphs (auto) Total Counted Neutrophils % (Manual) Lymphocytes % (Manual) Monocytes % (Manual) Nucleated RBC % Differential Comment Platelet Estimate RBC Morphology Specimen Type Sample Site pH Bicarbonate Actual Total CO2 Base Excess O2 Saturation O2 % ABG pCO2 ABG pO2 O2 Delivery Device Sodium Potassium Chloride Carbon Dioxide Anion Gap BUN Creatinine Estim Creat Clear Calc Est GFR (MDRD) Af Amer Est GFR (MDRD) Non-Af BUN/Creatinine Ratio Glucose Lactic Acid Calcium Troponin I B-Natriuretic Peptide TSH Ur Random Sodium Urine Creatinine Random Vancomycin COVID-19 ([facility]) Not Detected Hep Bs Antigen Hep Bs Antibody Hep B Core Total Ab Pending MRSA (PCR) Negative Blood Type Antibody Screen 11/18/19 11/19/19 11/19/19 17:40 05:20 05:20 WBC 12.9 H RBC 2.30 L Hgb 8.0 L Hct 24.2 L MCV 105.2 H MCH 34.8 H MCHC 33.1 RDW Std Deviation 54.9 H RDW Coeff of Florina 15.1 H Plt Count 281 MPV 9.7 Immature Gran % (Auto) 0.800 Neut % (Auto) 90.5 H Lymph % (Auto) 2.8 L [place] % (Auto) 5.7 Eos % (Auto) 0.0 Baso % (Auto) 0.2 Absolute Neuts (auto) 11.7 H Absolute Lymphs (auto) 0.36 L Total Counted Neutrophils % (Manual) Lymphocytes % (Manual) Monocytes % (Manual) Nucleated RBC % 0.2 Differential Comment SCANNED Platelet Estimate RBC Morphology Specimen Type Sample Site pH Bicarbonate Actual Total CO2 Base Excess O2 Saturation O2 % ABG pCO2 ABG pO2 O2 Delivery Device Sodium 137 Potassium 4.1 Chloride 103 Carbon Dioxide 17.0 L Anion Gap 17 H BUN 82 H Creatinine 6.92 H Estim Creat Clear Calc 10.37 Est GFR (MDRD) Af Amer 11 L Est GFR (MDRD) Non-Af 9 L BUN/Creatinine Ratio 11.8 Glucose 101 Lactic Acid Calcium 8.2 L Troponin I B-Natriuretic Peptide TSH Ur Random Sodium Urine Creatinine Random Vancomycin COVID-19 ([facility]) Hep Bs Antigen Non-Reactive Hep Bs Antibody Non-Reactive Hep B Core Total Ab MRSA (PCR) Blood Type Antibody Screen 11/19/19 11/20/19 11/20/19 22:05 01:30 04:30 WBC RBC Hgb Hct MCV MCH MCHC RDW Std Deviation RDW Coeff of Florina Plt Count MPV Immature Gran % (Auto) Neut % (Auto) Lymph % (Auto) [place] % (Auto) Eos % (Auto) Baso % (Auto) Absolute Neuts (auto) Absolute Lymphs (auto) Total Counted Neutrophils % (Manual) Lymphocytes % (Manual) Monocytes % (Manual) Nucleated RBC % Differential Comment Platelet Estimate RBC Morphology Specimen Type Sample Site pH Bicarbonate Actual Total CO2 Base Excess O2 Saturation O2 % ABG pCO2 ABG pO2 O2 Delivery Device Sodium Potassium Chloride Carbon Dioxide Anion Gap BUN Creatinine Estim Creat Clear Calc Est GFR (MDRD) Af Amer Est GFR (MDRD) Non-Af BUN/Creatinine Ratio Glucose Lactic Acid Calcium Troponin I 0.094 H 0.082 H B-Natriuretic Peptide TSH Ur Random Sodium Urine Creatinine Random Vancomycin 8.5 COVID-19 ([facility]) Hep Bs Antigen Hep Bs Antibody Hep B Core Total Ab MRSA (PCR) Blood Type Antibody Screen 11/20/19 11/20/19 11/20/19 04:30 04:30 04:30 WBC 7.5 RBC 2.03 L Hgb 7.1 L Hct 22.1 L MCV 108.9 H MCH 35.0 H MCHC 32.1 RDW Std Deviation 58.9 H RDW Coeff of Florina 15.5 H Plt Count 184 MPV 9.2 Immature Gran % (Auto) 0.800 Neut % (Auto) 88.1 H Lymph % (Auto) 3.2 L [place] % (Auto) 7.5 Eos % (Auto) 0.1 Baso % (Auto) 0.3 Absolute Neuts (auto) 6.6 Absolute Lymphs (auto) 0.24 L Total Counted Neutrophils % (Manual) Lymphocytes % (Manual) Monocytes % (Manual) Nucleated RBC % 0 Differential Comment Platelet Estimate RBC Morphology Specimen Type Sample Site pH Bicarbonate Actual Total CO2 Base Excess O2 Saturation O2 % ABG pCO2 ABG pO2 O2 Delivery Device Sodium 141 Potassium 3.6 Chloride 104 Carbon Dioxide 28.0 Anion Gap 9 BUN 51 H Creatinine 4.05 H Estim Creat Clear Calc 17.72 Est GFR (MDRD) Af Amer 20 L Est GFR (MDRD) Non-Af 16 L BUN/Creatinine Ratio 12.6 Glucose 99 Lactic Acid Calcium 8.3 L Troponin I Cancelled 0.056 H B-Natriuretic Peptide TSH Ur Random Sodium Urine Creatinine Random Vancomycin COVID-19 ([facility]) Hep Bs Antigen Hep Bs Antibody Hep B Core Total Ab MRSA (PCR) Blood Type Antibody Screen Microbiology 11/17/19 20:28 Urine Catheter - Catheter Urine Culture - Preliminary Culture exhibits no growth. 11/18/19 10:30 Stool Stool Occult Blood ([facility]) - Final Clinical Impression(s) from Imaging Studies Brain CT 11/17/19 20:04 IMPRESSION: Chronic involutional changes of the brain. Electronically Signed: Giuseppe Hernandez MD at 21:27 EDT , Service support , Chest X-Ray 11/17/19 21:10 IMPRESSION: Chronic CHF Electronically Signed: Giuseppe Hernandez MD at 21:47 EDT , Service support , Renal Ultrasound 11/18/19 06:41 IMPRESSION: Normal ultrasound of the kidneys . Electronically Signed: Chino Crowder, at 10:30 EDT , Service support , Chest X-Ray 11/18/19 07:17 IMPRESSION: Cardiomegaly. Mild vascular congestion. Stable examination Electronically Signed: Chino Crowder, at 12:28 EDT , Service support , Chest X-Ray 11/18/19 15:13 IMPRESSION: The tip of the left internal jugular venous catheter is at the junction of the superior vena cava and left brachiocephalic vein. The remainder of the examination is unchanged. Electronically Signed: Chino Crowder, at 15:52 EDT , Service support , Medical Necessity - Tobacco Use Smoking Status: Never smoker Assessment/Plan All Active Problems (Last Reviewed 07/19/19 @ 22:[address] Anthony Pisano MD) Morbid obesity (Acute) Metabolic acidosis (Acute) Shock (Acute) Acute renal failure (Acute) Hyperkalemia (Acute) Acute exacerbation of CHF (congestive heart failure) (Acute) RECOMMENDATIONS: 1. Continue antibiotics today. If cultures remain negative tomorrow, will discontinue completely. 2. Continue stress dose steroids. Will begin to wean tomorrow if the patient remains hemodynamically stable. 3. Wean supplemental oxygen to maintain saturations at or above 90%. 4. Encourage incentive spirometer use and mobilize patient as tolerated. 5. Transfuse 1 unit of packed red blood cells today. 6. Continue PPI therapy. 7. Additional hemodialysis support per nephrology recommendations. IMPRESSIONS: 1. Undifferentiated shock Although the exact etiology for the patient's hypotension is unclear, the patient did meet 2 sirs criteria on admission with a respiratory rate greater than 20 and a temperature less than 96.8 ?F. In addition, he has evidence of end-organ dysfunction and significant hemodynamic instability requiring vasopressor support. Nevertheless, the patient's hemodynamic instability may also come as a consequence of intravascular volume depletion coupled with acute kidney injury and concurrent use of multiple antihypertensives and outpatient diuretics. Accordingly, all antihypertensives and diuretics have been placed on hold. The patient was appropriately volume resuscitated and has been weaned from vasopressor support at this time. If cultures remain negative tomorrow, will discontinue antimicrobials. Stress dose steroids will be weaned beginning tomorrow if the patient remains hemodynamically stable. 2. Acute on chronic kidney disease/hyperkalemia Improving. Likely prerenal in etiology with a component of ischemic ATN in the setting of #1. Nephrology is currently following. The patient has been adequately volume resuscitated. We will continue current supportive measures with plans for ongoing hemodialysis support per nephrology recommendations. 3. Metabolic encephalopathy Resolved. Likely related to metabolic derangements in the setting of numbers 1 and 2. Avoid sedating medications. 4. Anemia The patient has had a slow downward decline in hemoglobin, without any overt signs of blood loss. We will continue to monitor H&H daily. Plan to transfuse if hemoglobin drops below 7 g/dL. Continue PPI therapy. 5. Stable abdominal wound/super morbid obesity/cardiomyopathy status post ICD/paroxysmal atrial fibrillation/questionable TEX and COPD Complicates care, management, recovery and prognosis. Continue to hold antihypertensives and baseline diuretics. Physical therapy to work with the patient. This note was generated with [employer] Index[employer] software. It may contain incorrect words, spelling, and punctuation that were not noted in checking the note before signing. Inpatient E&M: [id number] [facility] Hosp L3
[2019-11-20 06:49] LABS: Differential Comment SCANNED; Hypochromasia 1+
--- NOTE | 2019-11-20 08:00 | NURSING ---
Pt resting in bed awake. more alert today and not as confused. pt states he is feeling much better. pt waiting for breakfast. denies further needs at this time. next wound VAC change is tomorrow.
[2019-11-20] MEDS: Juven (unflavored) Packet 1 PACKET PO (08:48)
[2019-11-20] MEDS: Multivitamins,Ther W-Minerals Tablet 2 TABLET PO (08:49)
[2019-11-20] MEDS: Tolterodine Tartrate 4 MG CAP.SA PO (08:49)
[2019-11-20] MEDS: Amiodarone 200 MG Tablet 400 MG PO (08:49)
[2019-11-20] MEDS: Cyanocobalamin 500 MCG Tablet 1000 MCG PO (08:50)
[2019-11-20] MEDS: buPROPion 100 MG Tablet PO (08:50)
[2019-11-20] MEDS: Docusate Sodium 100 MG Capsule PO ×2 (08:50→21:37)
[2019-11-20] MEDS: Sertraline 50 MG Tablet PO ×2 (08:50→21:37)
--- NOTE | 2019-11-20 10:13 | PN.RENAL_ITS ---
Patient Problems: Active and Suspected Problems (Last Reviewed 07/19/19 @ 22:[address] Anthony Pisano MD) Morbid obesity (Acute) Metabolic acidosis (Acute) Shock (Acute) Acute renal failure (Acute) Hyperkalemia (Acute) Subjective: denies SOB, nausea, vomiting. Metallic taste resolved. Tolerated HD yesterday. Remains nonoliguric. Hold dialysis today. Watch for renal recovery. - Physical Exam Vitals/I&O's: Vital Signs Temp Pulse Resp BP Pulse Ox 98.6 F 87 18 112/52 L 95 11/20/19 09:47 11/20/19 09:47 11/20/19 09:47 11/20/19 09:47 11/20/19 09:47 Oxygen Flow Rate (L/min) 2 Oxygen Delivery Method Nasal Cannula Weight: 180.1 kg Body Mass Index (BMI) 63.1 Intake and Output for Last 24 Hours 11/18/19 11/19/19 11/20/19 23:59 23:59 23:59 Intake Total 6776.47 / 6997.07 1697.75 / 1707.15 521.75 / 521.75 Output Total 575 / 775 1780 / 1830 800 / 800 Balance 6201.47 / 6222.07 -82.25 / -122.85 -278.25 / -278.25 General: Alert, Oriented x3, Cooperative, No apparent distress Oral: Moist Mucosa Neck: Supple Lungs: Diminished Cardiovascular: Regular rate Abdomen: Bowel Sounds Present, Soft, Non Tender, Non-Distended, Obese Skin: Ulcer/ Wound Musculoskeletal: - - gen weakness Neurological: - - no tremor Psych/Mental Status: Normal Affect, Appropriate, Alert and oriented to time, place, person, mood and affect Microbiology Past 72 Hours 11/17/19 20:28 Urine Catheter - Catheter Urine Culture - Preliminary Staphylococcus species 11/18/19 10:30 Stool Stool Occult Blood (SASHA) - Final Laboratory Results 11/18/19 06:45: Crossmatch See Detail 11/19/19 22:05: Troponin I 0.094 H 11/20/19 01:30: Troponin I 0.082 H 11/20/19 04:30: Random Vancomycin 8.5 11/20/19 04:30: Troponin I Cancelled 11/20/19 04:30: WBC 7.5, RBC 2.03 L, Hgb 7.1 L, Hct 22.1 L, MCV 108.9 H, MCH 35.0 H, MCHC 32.1, RDW Std Deviation 58.9 H, RDW Coeff of Florina 15.5 H, Plt Count 184, MPV 9.2, Immature Gran % (Auto) 0.800, Neut % (Auto) 88.1 H, Lymph % (Auto) 3.2 L, Door % (Auto) 7.5, Eos % (Auto) 0.1, Baso % (Auto) 0.3, Absolute Neuts (auto) 6.6, Absolute Lymphs (auto) 0.24 L, Nucleated RBC % 0, Differential Comment SCANNED, Hypochromasia 1+ 11/20/19 04:30: Sodium 141, Potassium 3.6, Chloride 104, Carbon Dioxide 28.0, Anion Gap 9, BUN 51 H, Creatinine 4.05 H, Estim Creat Clear Calc 17.72, Est GFR (MDRD) Af Amer 20 L, Est GFR (MDRD) Non-Af 16 L, BUN/Creatinine Ratio 12.6, Glucose 99, Calcium 8.3 L, Troponin I 0.056 H Current Medications Acetaminophen (Tylenol) 650 mg PO Q4H PRN PRN PRN Reason: fever, pain -01/02 Last Admin: 11/19/19 21:13 Dose: 650 mg Documented by: [facility]arone [facility] (Cord[facility]) [facility] Last Admin: 11/20/19 08:49 Dose: 400 mg Documented by: Bupropion HCl (Wellbutrin Tablets) 100 mg PO DAILY [facility] Last Admin: 11/20/19 08:50 Dose: 100 mg Documented by: Cholecalciferol (Vitamin D (25mcg)) 3,000 unit PO DAILY [facility] Last Admin: 11/20/19 08:50 Dose: 3,000 unit Documented by: Cyanocobalamin (Vitamin B12) 1,000 mcg PO DAILY [facility] Last Admin: 11/20/19 08:50 Dose: 1,000 mcg Documented by: Diazepam (Valium) 5 mg PO 4X/DAY PRN PRN PRN Reason: SPASMS Last Admin: 11/19/19 05:26 Dose: 5 mg Documented by: Docusate Sodium (Colace) 100 mg PO BID [facility] Last Admin: 11/20/19 08:50 Dose: 100 mg Documented by: Heparin Sodium (Beef Lung) () 50 units IV UD PRN PRN Reason: PICC Line Heparin Flush Heparin Sodium (Porcine) (Heparin Na) 5,000 unit SC Q8 [facility] Last Admin: 11/20/19 04:57 Dose: 5,000 unit Documented by: Hydrocortisone Sodium Succinate (Solu-Cortef) 50 mg IV Q6 [facility] Last Admin: 11/20/19 04:58 Dose: 50 mg Documented by: Norepinephrine Bitartrate 8 mg (/ Sodium Chloride) 250 mls @ 9.375 mls/hr CONT INF .[id number] [facility]; Protocol Last Titration: 11/20/19 06:00 Dose: 0 mcg/min, 0 mls/hr Documented by: Vasopressin 20 units/ Sodium (Chloride) 25 mls @ 3 mls/hr IV .[id number] [facility] Last Admin: 11/19/19 21:19 Dose: Not Given Documented by: Pantoprazole Sodium 40 mg/ (Sodium Chloride) 110 mls @ 330 mls/hr IV Q12 [facility] Last Infusion: 11/20/19 09:24 Dose: Infused Documented by: Piperacillin Sod/Tazobactam (Sod 3.375 gm/ Sodium Chloride) 50 mls @ 12.5 mls/hr IV Q12 [facility] Last Infusion: 11/20/19 01:29 Dose: Infused Documented by: Levothyroxine Sodium (Synthroid) 25 mcg PO DAILY@0600 [facility] Last Admin: 11/20/19 04:58 Dose: 25 mcg Documented by: Multivitamins/Minerals (Multivitamin With Minerals (Bkc)) 2 tablet PO DAILYCM [facility] Last Admin: 11/20/19 08:49 Dose: 2 tablet Documented by: Sertraline HCl (Zoloft) 50 mg PO BID [facility] Last Admin: 11/20/19 08:50 Dose: 50 mg Documented by: Sodium Chloride () 10 - 40 ml IV UD PRN PRN Reason: Open End PICC Flush Last Admin: 11/20/19 09:04 Dose: 10 ml Documented by: Sodium Chloride (0.9% Nacl (Sterile) Posiflush) 10 - 40 ml IV UD PRN PRN Reason: Port access or dressing change Tolterodine Tartrate (Detrol La) 4 mg PO DAILY [facility] Last Admin: 11/20/19 08:49 Dose: 4 mg Documented by: Medical Necessity - Tobacco Use Smoking Status: Never smoker Assessment/Plan All Active Problems (Last Reviewed 07/19/19 @ 22:[address] Anthony Pisano MD) Morbid obesity (Acute) Metabolic acidosis (Acute) Shock (Acute) Acute renal failure (Acute) Hyperkalemia (Acute) Acute exacerbation of CHF (congestive heart failure) (Acute) 1. Anuric Acute renal failure due to ischemic ATN, hypotension. Now with increased urine output. Watch for renal recovery. Hold dialysis today o 2. Acute hyperkalemia resolved. 3. Chronic abdominal wound on iv antibx at [facility] with PICC line. WBC 12.9K today. renal dose iv antibx. Bld cx pending 4. Septic shock, hypotension on pressors. Await bld cx 5. Morbid obesity 6. TEX on BIPAP 7. Hx DVT on anticoagulation. 8. Anemia hgb 7.1g prbc ordered by primary
--- NOTE | 2019-11-20 10:15 | CASEMGMT ---
RN CM Note: participated in ICU interdisciplinary rounds. Patient remains on 2L NC, PT/OT is on hold. Vasopressors off currently. B/C improved today, no hemodialysis today per nephrology. PT/OT evaluations completed. DC Plan: [facility]. Villa CALDWELLN RN ACM
[2019-11-20 10:17] LABS: Hepatitis B Core Ab Total Negative (Negative)
--- NOTE | 2019-11-20 10:24 | CASEMGMT ---
Addendum entered by Lesly Sutton 11/20/19 10:34: SW also left a voice mail for [facility] to return 's call. Lesly NAIK Original Note: SW spoke with patient again to clarify if he is ok with going back to [facility]. He said he is fine with returning to [facility]. SW will send updates to [facility]. Lesly NAIK
[2019-11-20] MEDS: Carvedilol 6.25 MG Tablet PO (13:40)
--- NOTE | 2019-11-20 15:50 | PN_ITS ---
Patient Problems: Active and Suspected Problems (Last Reviewed 07/19/19 @ 22:[address] Anthony Pisano MD) Morbid obesity (Acute) Metabolic acidosis (Acute) Shock (Acute) Acute renal failure (Acute) Hyperkalemia (Acute) Subjective: Patient was seen and examined today, he complained of having right scapular pain last night, cardiac enzymes were done but they were intermediate, I do not think the patient has had a cardiac event I do not think he needs to see cardiology. I talked briefly with cardiology today and they stated that he had a cardiac catheterization in the past that showed no occlusive coronary disease. Patient's creatinine is improved today, he appears to be making urine and dialysis is being held off today. Blood culture shows no growth at 48 hours. Objective: General: Alert, Oriented x3, Cooperative, No apparent distress, Well developed, Well nourished HEENT: Atraumatic, PERRLA, EOMI, Normocephalic Oral: Moist Mucosa Neck: Supple, Trachea Midline, Thyroid Normal Size and Texture Lungs: Clear to auscultation, Normal air movement, No rhonchi, No wheeze, No rales Cardiovascular: Regular rate, Regular Rhythm, Normal S1, Normal S2, No murmurs, PMI Normal, No rub noted, No Gallop Abdomen: Bowel Sounds Present, Soft, Non-Distended, Obese, - - Bandage is noted over the lower abdomen Extremities: No clubbing, No cyanosis, No edema, Capillary Refill Less than 3 Seconds Skin: No rashes, No breakdown Musculoskeletal: No Tenderness to Palpation of Joints or Extremities Neurological: Cranial nerves II-XII grossly intact, Sensory exam intact to light touch and pain, Coordination normal Psych/Mental Status: Normal Affect, Appropriate - Physical Exam Vitals/I&O's: Vital Signs Temp Pulse Resp BP Pulse Ox 99.1 F 83 21 H 97/53 L 97 11/20/19 15:11/20/19 15:02 11/20/19 15:11/20/19 15:11/20/19 13:00 Oxygen Flow Rate (L/min) 2 Oxygen Delivery Method Nasal Cannula Weight: 180.1 kg Body Mass Index (BMI) 63.1 Intake and Output for Last 24 Hours 11/18/19 11/19/19 11/20/19 23:59 23:59 23:59 Intake Total 6776.47 / 6997.07 1697.75 / 1707.15 821.75 / 821.75 Output Total 575 / 775 1780 / 1830 1200 / 1200 Balance 6201.47 / 6222.07 -82.25 / -122.85 -378.25 / -378.25 Microbiology Past 72 Hours 11/17/19 20:32 Blood Culture (Wb) - Pic Blood Culture - Preliminary No growth in 48 hours. 11/17/19 20:46 Blood Culture (Wb) - Anticubital Right Blood Culture - Preliminary No growth in 48 hours. 11/17/19 20:28 Urine Catheter - Catheter Urine Culture - Preliminary Staphylococcus species 11/18/19 10:30 Stool Stool Occult Blood (SASHA) - Final Laboratory Results 11/18/19 06:45: Crossmatch See Detail 11/18/19 17:40: Hep B Core Total Ab Negative 11/19/19 22:05: Troponin I 0.094 H 11/20/19 01:30: Troponin I 0.082 H 11/20/19 04:30: Random Vancomycin 8.5 11/20/19 04:30: Troponin I Cancelled 11/20/19 04:30: WBC 7.5, RBC 2.03 L, Hgb 7.1 L, Hct 22.1 L, MCV 108.9 H, MCH 35.0 H, MCHC 32.1, RDW Std Deviation 58.9 H, RDW Coeff of Florina 15.5 H, Plt Count 184, MPV 9.2, Immature Gran % (Auto) 0.800, Neut % (Auto) 88.1 H, Lymph % (Auto) 3.2 L, [place] % (Auto) 7.5, Eos % (Auto) 0.1, Baso % (Auto) 0.3, Absolute Neuts (auto) 6.6, Absolute Lymphs (auto) 0.24 L, Nucleated RBC % 0, Differential Comment SCANNED, Hypochromasia 1+ 11/20/19 04:30: Sodium 141, Potassium 3.6, Chloride 104, Carbon Dioxide 28.0, Anion Gap 9, BUN 51 H, Creatinine 4.05 H, Estim Creat Clear Calc 17.72, Est GFR (MDRD) Af Amer 20 L, Est GFR (MDRD) Non-Af 16 L, BUN/Creatinine Ratio 12.6, Glucose 99, Calcium 8.3 L, Troponin I 0.056 H Current Medications Acetaminophen (Tylenol) 650 mg PO Q4H PRN PRN PRN Reason: fever, pain -01/02 Last Admin: 11/19/19 21:13 Dose: 650 mg Documented by: Amiodarone HCl (Cordarone) 400 mg PO DAILYCM [facility] Last Admin: 11/20/19 08:49 Dose: 400 mg Documented by: Bupropion HCl (Wellbutrin Tablets) 100 mg PO DAILY [facility] Last Admin: 11/20/19 08:50 Dose: 100 mg Documented by: Carvedilol (Coreg) 6.25 mg PO 0800,1200 [facility] Last Admin: 11/20/19 13:40 Dose: 6.25 mg Documented by: Cholecalciferol (Vitamin D (25mcg)) 3,000 unit PO DAILY [facility] Last Admin: 11/20/19 08:50 Dose: 3,000 unit Documented by: Cyanocobalamin (Vitamin B12) 1,000 mcg PO DAILY [facility] Last Admin: 11/20/19 08:50 Dose: 1,000 mcg Documented by: Diazepam (Valium) 5 mg PO 4X/DAY PRN PRN PRN Reason: SPASMS Last Admin: 11/19/19 05:26 Dose: 5 mg Documented by: Docusate Sodium (Colace) 100 mg PO BID [facility] Last Admin: 11/20/19 08:50 Dose: 100 mg Documented by: Heparin Sodium (Beef Lung) () 50 units IV UD PRN PRN Reason: PICC Line Heparin Flush Heparin Sodium (Porcine) (Heparin Na) 5,000 unit SC Q8 [facility] Last Admin: 11/20/19 13:40 Dose: 5,000 unit Documented by: Hydrocortisone Sodium Succinate (Solu-Cortef) 50 mg IV Q6 [facility] Last Admin: 11/20/19 13:40 Dose: 50 mg Documented by: Norepinephrine Bitartrate 8 mg (/ Sodium Chloride) 250 mls @ 9.375 mls/hr CONT INF .[id number] [facility]; Protocol Last Titration: 11/20/19 06:00 Dose: 0 mcg/min, 0 mls/hr Documented by: Vasopressin 20 units/ Sodium (Chloride) 25 mls @ 3 mls/hr IV .[id number] [facility] Last Admin: 08/26/20 21:19 Dose: Not Given Documented by: Pantoprazole Sodium 40 mg/ (Sodium Chloride) 110 mls @ 330 mls/hr IV Q12 [facility] Last Infusion: 11/20/19 09:24 Dose: Infused Documented by: Piperacillin Sod/Tazobactam (Sod 3.375 gm/ Sodium Chloride) 50 mls @ 12.5 mls/hr IV Q12 [facility] Last Admin: 11/20/19 13:36 Dose: 12.5 mls/hr Documented by: Levothyroxine Sodium (Synthroid) 25 mcg PO DAILY@0600 [facility] Last Admin: 11/20/19 04:58 Dose: 25 mcg Documented by: Multivitamins/Minerals (Multivitamin With Minerals (Bkc)) 2 tablet PO DAILYCM [facility] Last Admin: 11/20/19 08:49 Dose: 2 tablet Documented by: Sertraline HCl (Zoloft) 50 mg PO BID [facility] Last Admin: 11/20/19 08:50 Dose: 50 mg Documented by: Sodium Chloride () 10 - 40 ml IV UD PRN PRN Reason: Open End PICC Flush Last Admin: 11/20/19 09:04 Dose: 10 ml Documented by: Sodium Chloride (0.9% Nacl (Sterile) Posiflush) 10 - 40 ml IV UD PRN PRN Reason: Port access or dressing change Tolterodine Tartrate (Detrol La) 4 mg PO DAILY [facility] Last Admin: 11/20/19 08:49 Dose: 4 mg Documented by: Medical Necessity - Tobacco Use Smoking Status: Never smoker Assessment/Plan All Active Problems (Last Reviewed 07/19/19 @ 22:[address] Anthony Pisano MD) Morbid obesity (Acute) Metabolic acidosis (Acute) Shock (Acute) Acute renal failure (Acute) Hyperkalemia (Acute) Acute exacerbation of CHF (congestive heart failure) (Acute) #1 acute shock-etiology unclear at this point, it may be due to septic shock or secondary to hypovolemia-for now, patient remains on IV antibiotics, patient is off all pressors at this time #2 acute renal failure-etiology unclear, possibly ATN from hypotension, no dialysis today #3 metabolic encephalopathy-improved #4 morbid obesity #5 anemia-etiology unclear at this point, patient was transfused 1 unit of packed red blood cells #6 large abdominal wound status post panniculectomy-wound care is participating in his care #7 hyperkalemia-resolved #8 elevated troponins-I do not think these are significant at this time Inpatient E&M: 98599 Subs Hosp L2
[2019-11-20] MEDS: Acetaminophen 325 MG Tablet 650 MG PO (21:45)
[2019-11-21] VITALS (21 sets, daily range): BP systolic 102–136; BP diastolic 46–85; PULSE 63–86; RESP 14–23; TEMP 36.8–37.2; O2SAT 90–100
[2019-11-21] MEDS: Hydrocortisone Sod Succinate 100 MG/2 ML Vial 50 MG IV ×4 (01:04→21:20)
[2019-11-21] MEDS: 0.9% Saline Lock 10 ML Syringe IV ×3 (01:05→21:20)
[2019-11-21 04:03] LABS: Absolute Lymphocyte Count 0.24 X10^3/uL (0.83-4.51); Absolute Neutrophil Count 7.3 X10^3/uL (2.0-7.7); Basophil# 0.01 X10^3/uL; Basophil% 0.1 % (0-1); Hematocrit 25.7 % (40-54); Hemoglobin 8.3 g/dL (13.0-16.5); Lymphocyte # 0.24 X10^3/ul (4.0); Mean Corp Hgb Conc 32.3 g/dL (32-36); Mean Corpuscular Volume 105.3 fL (80-94); Monocyte# 0.53 X10^3/uL; Monocyte% 6.5 % (0-10); NRBC Flagged by Analyzer 0 % (0-5); Neutrophil % 89.8 % (47-70); POSITIVE DIFFERENTIAL YES; POSITIVE MORPHOLOGY YES; Platelet Count 185 K/mm3 (150-450); RBC Distribution Width CV 15.9 % (11.6-14.6); Red Blood Count 2.44 M/mm3 (4.6-6.2); White Blood Count 8.1 K/mm3 (4.4-11.0)
[2019-11-21 04:12] LABS: Differential Indicated SCAN CRITERIA MET
[2019-11-21 04:33] LABS: Differential Comment SCANNED
[2019-11-21 04:36] LABS: Albumin, Serum 2.4 g/dL (3.2-5.0); BUN 53 mg/dL (7-18); BUN/Creat Ratio 15.4 RATIO (10-20); Calcium,Total 8.5 mg/dL (8.5-10.1); Chloride 106 mmol/L (98-107); Creatinine, Serum 3.44 mg/dL (0.70-1.30); EST Glomerular Filtration Rate 20 mL/min (>60); Est Glom Filt Rate - Afr Amer 24 mL/min (>60); Estimated Creatinine Clearance 20.86 ml/min; Glucose 110 mg/dL (74-106); Phosphorus 4.4 mg/dL (2.5-4.9); Potassium 3.2 mmol/L (3.5-5.1); Sodium Level 144 mmol/L (136-145)
[2019-11-21] MEDS: Heparin Injection (Vial) 5,000 UNIT/ML VIAL 5000 UNIT SC ×3 (06:10→21:18)
[2019-11-21] MEDS: Levothyroxine 25 MCG TABLET PO (06:10)
--- NOTE | 2019-11-21 06:12 | PCM.PN.INT ---
Subjective: The patient was seen and examined at the bedside this morning. Events from the last 24 hours have been reviewed. The patient is currently afebrile, hemodynamically stable and maintaining appropriate oxygen saturations on 2 L/min via nasal cannula. The patient did have a bit of a stomachache overnight, but this has improved this morning. He is currently documented to be overall net +6.5 L for the hospital admission. Urine output has been increasing. The patient did receive 1 unit of packed red blood cells yesterday with improvement in his hemoglobin this morning to 8.3 g/dL. Potassium is low at 3.2. Objective: The patient's most recent lab work, culture data and imaging studies have all been personally reviewed. Renal ultrasound was unremarkable. Coronavirus PCR was negative. MRSA screen was negative. Blood and urine cultures have shown no growth to date. General: Alert, Cooperative, No apparent distress HEENT: Atraumatic, PERRLA, Normocephalic Oral: Moist Mucosa, No Gingival or Mucosal Lesions/ Ulcerations Neck: Supple, No Nodes, Trachea Midline, - - Stable left-sided temporary hemodialysis line Lungs: No rhonchi, No wheeze, No rales, Diminished Cardiovascular: Normal S1, Normal S2, Irregular Rate Abdomen: Bowel Sounds Present, Soft, Non Tender, Obese Extremities: No clubbing, No cyanosis Skin: - - No significant change from previous Musculoskeletal: No Tenderness to Palpation of Joints or Extremities, No Muscle Wasting Lymphatic: No Cervical, Supraclavicular, or Inguinal Adenopathy Neurological: Cranial nerves II-XII grossly intact, Neuro grossly intact Psych/Mental Status: Alert and oriented to time, place, person, mood and affect Vital Signs Temp Pulse Resp BP Pulse Ox 98.3 F 73 21 H 127/85 H 96 11/21/19 06:00 11/21/19 06:00 11/21/19 06:00 11/21/19 06:00 11/21/19 06:00 Oxygen Flow Rate (L/min) 2 Oxygen Delivery Method Nasal Cannula Weight: 390 lb 10.546 oz Body Mass Index (BMI) 63.1 Intake and Output for Last 24 Hours 11/19/19 11/20/19 11/21/19 23:59 23:59 23:59 Intake Total 1697.75 / 1707.15 1151.75 / 1151.75 150 / 150 Output Total 1780 / 1830 1600 / 1600 235 / 235 Balance -82.25 / -122.85 -448.25 / -448.25 -85 / -85 Labs (Last 48 Hours) 11/18/19 11/18/19 11/18/19 06:45 17:40 17:40 WBC RBC Hgb Hct MCV MCH MCHC RDW Std Deviation RDW Coeff of Florina Plt Count MPV Immature Gran % (Auto) Neut % (Auto) Lymph % (Auto) [place] % (Auto) Eos % (Auto) Baso % (Auto) Absolute Neuts (auto) Absolute Lymphs (auto) Nucleated RBC % Differential Comment Hypochromasia Sodium Potassium Chloride Carbon Dioxide Anion Gap BUN Creatinine Estim Creat Clear Calc Est GFR (MDRD) Af Amer Est GFR (MDRD) Non-Af BUN/Creatinine Ratio Glucose Calcium Phosphorus Troponin I Albumin Random Vancomycin Hep Bs Antigen Non-Reactive Hep Bs Antibody Non-Reactive Hep B Core Total Ab Negative Crossmatch See Detail 11/19/19 11/19/19 11/19/19 05:20 05:20 22:05 WBC 12.9 H RBC 2.30 L Hgb 8.0 L Hct 24.2 L MCV 105.2 H MCH 34.8 H MCHC 33.1 RDW Std Deviation 54.9 H RDW Coeff of Florina 15.1 H Plt Count 281 MPV 9.7 Immature Gran % (Auto) 0.800 Neut % (Auto) 90.5 H Lymph % (Auto) 2.8 L [place] % (Auto) 5.7 Eos % (Auto) 0.0 Baso % (Auto) 0.2 Absolute Neuts (auto) 11.7 H Absolute Lymphs (auto) 0.36 L Nucleated RBC % 0.2 Differential Comment SCANNED Hypochromasia Sodium 137 Potassium 4.1 Chloride 103 Carbon Dioxide 17.0 L Anion Gap 17 H BUN 82 H Creatinine 6.92 H Estim Creat Clear Calc 10.37 Est GFR (MDRD) Af Amer 11 L Est GFR (MDRD) Non-Af 9 L BUN/Creatinine Ratio 11.8 Glucose 101 Calcium 8.2 L Phosphorus Troponin I 0.094 H Albumin Random Vancomycin Hep Bs Antigen Hep Bs Antibody Hep B Core Total Ab Crossmatch 11/20/19 11/20/19 11/20/19 01:30 04:30 04:30 WBC RBC Hgb Hct MCV MCH MCHC RDW Std Deviation RDW Coeff of Florina Plt Count MPV Immature Gran % (Auto) Neut % (Auto) Lymph % (Auto) [place] % (Auto) Eos % (Auto) Baso % (Auto) Absolute Neuts (auto) Absolute Lymphs (auto) Nucleated RBC % Differential Comment Hypochromasia Sodium Potassium Chloride Carbon Dioxide Anion Gap BUN Creatinine Estim Creat Clear Calc Est GFR (MDRD) Af Amer Est GFR (MDRD) Non-Af BUN/Creatinine Ratio Glucose Calcium Phosphorus Troponin I 0.082 H Cancelled Albumin Random Vancomycin 8.5 Hep Bs Antigen Hep Bs Antibody Hep B Core Total Ab Crossmatch 11/20/19 11/20/19 11/21/19 04:30 04:30 04:00 WBC 7.5 RBC 2.03 L Hgb 7.1 L Hct 22.1 L MCV 108.9 H MCH 35.0 H MCHC 32.1 RDW Std Deviation 58.9 H RDW Coeff of Florina 15.5 H Plt Count 184 MPV 9.2 Immature Gran % (Auto) 0.800 Neut % (Auto) 88.1 H Lymph % (Auto) 3.2 L [place] % (Auto) 7.5 Eos % (Auto) 0.1 Baso % (Auto) 0.3 Absolute Neuts (auto) 6.6 Absolute Lymphs (auto) 0.24 L Nucleated RBC % 0 Differential Comment SCANNED Hypochromasia 1+ Sodium 141 144 Potassium 3.6 3.2 L Chloride 104 106 Carbon Dioxide 28.0 28.0 Anion Gap 9 BUN 51 H 53 H Creatinine 4.05 H 3.44 H Estim Creat Clear Calc 17.72 20.86 Est GFR (MDRD) Af Amer 20 L 24 L Est GFR (MDRD) Non-Af 16 L 20 L BUN/Creatinine Ratio 12.6 15.4 Glucose 99 110 H Calcium 8.3 L 8.5 Phosphorus 4.4 Troponin I 0.056 H Albumin 2.4 L Random Vancomycin Hep Bs Antigen Hep Bs Antibody Hep B Core Total Ab Crossmatch 11/21/19 04:00 WBC 8.1 RBC 2.44 L Hgb 8.3 L Hct 25.7 L MCV 105.3 H MCH 34.0 H MCHC 32.3 RDW Std Deviation 60.0 H RDW Coeff of Florina 15.9 H Plt Count 185 MPV 9.0 Immature Gran % (Auto) 0.600 Neut % (Auto) 89.8 H Lymph % (Auto) 3.0 L [place] % (Auto) 6.5 Eos % (Auto) 0.0 Baso % (Auto) 0.1 Absolute Neuts (auto) 7.3 Absolute Lymphs (auto) 0.24 L Nucleated RBC % 0 Differential Comment SCANNED Hypochromasia Sodium Potassium Chloride Carbon Dioxide Anion Gap BUN Creatinine Estim Creat Clear Calc Est GFR (MDRD) Af Amer Est GFR (MDRD) Non-Af BUN/Creatinine Ratio Glucose Calcium Phosphorus Troponin I Albumin Random Vancomycin Hep Bs Antigen Hep Bs Antibody Hep B Core Total Ab Crossmatch Microbiology 11/17/19 20:32 Blood Culture (Wb) - Pic Blood Culture - Preliminary No growth in 48 hours. 11/17/19 20:46 Blood Culture (Wb) - Anticubital Right Blood Culture - Preliminary No growth in 48 hours. 11/17/19 20:28 Urine Catheter - Catheter Urine Culture - Preliminary Staphylococcus species Clinical Impression(s) from Imaging Studies Brain CT 11/17/19 20:04 IMPRESSION: Chronic involutional changes of the brain. Electronically Signed: Giuseppe Hernandez MD at 21:27 EDT , Service support , Chest X-Ray 11/17/19 21:10 IMPRESSION: Chronic CHF Electronically Signed: Giuseppe Hernandez MD at 21:47 EDT , Service support , Renal Ultrasound 11/18/19 06:41 IMPRESSION: Normal ultrasound of the kidneys . Electronically Signed: Chino Crowder, at 10:30 EDT , Service support , Chest X-Ray 11/18/19 07:17 IMPRESSION: Cardiomegaly. Mild vascular congestion. Stable examination Electronically Signed: Chino Crowder, at 12:28 EDT , Service support , Chest X-Ray 11/18/19 15:13 IMPRESSION: The tip of the left internal jugular venous catheter is at the junction of the superior vena cava and left brachiocephalic vein. The remainder of the examination is unchanged. Electronically Signed: Chino Crowder, at 15:52 EDT , Service support , Medical Necessity - Tobacco Use Smoking Status: Never smoker Assessment/Plan All Active Problems (Last Reviewed 07/19/19 @ 22:[address] Anthony Pisano MD) Morbid obesity (Acute) Metabolic acidosis (Acute) Shock (Acute) Acute renal failure (Acute) Hyperkalemia (Acute) Acute exacerbation of CHF (congestive heart failure) (Acute) RECOMMENDATIONS: 1. Okay to discontinue antibiotics, as no source of infection has ever been identified. 2. Will begin to wean stress dose steroids today. 3. Wean supplemental oxygen to maintain saturations at or above 90%. 4. Encourage incentive spirometer use and mobilize patient as tolerated. 5. Continue PPI therapy. 6. Additional hemodialysis support per nephrology recommendations. 7. The patient is medically stable for transfer out of the intensive care unit. IMPRESSIONS: 1. Undifferentiated shock Although the exact etiology for the patient's hypotension is unclear, the patient did meet 2 sirs criteria on admission with a respiratory rate greater than 20 and a temperature less than 96.8 ?F. In addition, he has evidence of end-organ dysfunction and significant hemodynamic instability requiring vasopressor support. Nevertheless, the patient's hemodynamic instability may also come as a consequence of intravascular volume depletion coupled with acute kidney injury and concurrent use of multiple antihypertensives and outpatient diuretics. Although he was initially maintained on antimicrobials for several days, no identifiable source of infection was ever identified. Therefore, antimicrobials will be discontinued. The patient's hemodynamics have subsequently stabilized. Stress dose steroids will be weaned accordingly. 2. Acute on chronic kidney disease/hyperkalemia Improving. Likely prerenal in etiology with a component of ischemic ATN in the setting of #1. Nephrology is currently following. Will continue current supportive measures with plans for ongoing hemodialysis support per nephrology recommendations. 3. Metabolic encephalopathy Resolved. Likely related to metabolic derangements in the setting of numbers 1 and 2. Avoid sedating medications. 4. Anemia The patient has had a slow downward decline in hemoglobin, without any overt signs of blood loss. We will continue to monitor H&H daily. Plan to transfuse if hemoglobin drops below 7 g/dL. Continue PPI therapy. 5. Stable abdominal wound/super morbid obesity/cardiomyopathy status post ICD/paroxysmal atrial fibrillation/questionable TEX and COPD Complicates care, management, recovery and prognosis. Continue to hold antihypertensives and baseline diuretics. Physical therapy to work with the patient. This note was generated with [employer] dictation software. It may contain incorrect words, spelling, and punctuation that were not noted in checking the note before signing. Inpatient E&M: 39249 Subs Hosp L2
[2019-11-21] MEDS: Tolterodine Tartrate 4 MG CAP.SA PO (08:11)
[2019-11-21] MEDS: Multivitamins,Ther W-Minerals Tablet 2 TABLET PO (08:11)
[2019-11-21] MEDS: Docusate Sodium 100 MG Capsule PO ×2 (08:11→21:18)
[2019-11-21] MEDS: Cyanocobalamin 500 MCG Tablet 1000 MCG PO (08:11)
[2019-11-21] MEDS: Carvedilol 6.25 MG Tablet PO ×2 (08:12→12:31)
[2019-11-21] MEDS: Amiodarone 200 MG Tablet 400 MG PO (08:12)
[2019-11-21] MEDS: Juven (unflavored) Packet 1 PACKET PO ×2 (08:12→16:40)
[2019-11-21] MEDS: Sertraline 50 MG Tablet PO ×2 (08:12→21:18)
[2019-11-21] MEDS: buPROPion 100 MG Tablet PO (08:12)
--- NOTE | 2019-11-21 08:28 | PN.RENAL_ITS ---
Patient Problems: Active and Suspected Problems (Last Reviewed 07/19/19 @ 22:[address] Anthony Pisano MD) Acute renal failure (Acute) Hyperkalemia (Acute) Subjective: denies shortness of breath with aflutter on monitor. Admits to palpitations. No nausea, vomiting. Urine output good with improved creatinine today. Will hold on dialysis. - Physical Exam Vitals/I&O's: Vital Signs Temp Pulse Resp BP Pulse Ox 98.2 F 76 20 H 111/56 L 100 11/21/19 08:00 11/21/19 08:00 11/21/19 08:00 11/21/19 08:00 11/21/19 08:00 Oxygen Flow Rate (L/min) 2 Oxygen Delivery Method Nasal Cannula Weight: 177.2 kg Body Mass Index (BMI) 63.1 Intake and Output for Last 24 Hours 11/19/19 11/20/19 11/21/19 23:59 23:59 23:59 Intake Total 1697.75 / 1707.15 1151.75 / 1151.75 200 / 200 Output Total 1780 / 1830 1600 / 1600 480 / 480 Balance -82.25 / -122.85 -448.25 / -448.25 -280 / -280 General: Alert, Oriented x3, Cooperative, No apparent distress Lungs: Clear to auscultation Cardiovascular: - - aflutter on monitor Abdomen: Bowel Sounds Present, Soft, Non Tender, Non-Distended, Obese Skin: Ulcer/ Wound - abdomen Psych/Mental Status: Normal Affect, Appropriate, Alert and oriented to time, place, person, mood and affect Microbiology Past 72 Hours 11/17/19 20:28 Urine Catheter - Catheter Urine Culture - Final Staphylococcus haemolyticus 11/17/19 20:32 Blood Culture (Wb) - Pic Blood Culture - Preliminary No growth in 48 hours. 11/17/19 20:46 Blood Culture (Wb) - Anticubital Right Blood Culture - Preliminary No growth in 48 hours. 11/18/19 10:30 Stool Stool Occult Blood (SASHA) - Final Laboratory Results 11/18/19 06:45: Crossmatch See Detail 11/18/19 17:40: Hep B Core Total Ab Negative 11/21/19 04:00: Sodium 144, Potassium 3.2 L, Chloride 106, Carbon Dioxide 28.0, BUN 53 H, Creatinine 3.44 H, Estim Creat Clear Calc 20.86, Est GFR (MDRD) Af Amer 24 L, Est GFR (MDRD) Non-Af 20 L, BUN/Creatinine Ratio 15.4, Glucose 110 H, Calcium 8.5, Phosphorus 4.4, Albumin 2.4 L 11/21/19 04:00: WBC 8.1, RBC 2.44 L, Hgb 8.3 L, Hct 25.7 L, MCV 105.3 H, MCH 34.0 H, MCHC 32.3, RDW Std Deviation 60.0 H, RDW Coeff of Florina 15.9 H, Plt Count 185, MPV 9.0, Immature Gran % (Auto) 0.600, Neut % (Auto) 89.8 H, Lymph % (Auto) 3.0 L, [place] % (Auto) 6.5, Eos % (Auto) 0.0, Baso % (Auto) 0.1, Absolute Neuts (auto) 7.3, Absolute Lymphs (auto) 0.24 L, Nucleated RBC % 0, Differential Comment SCANNED Current Medications Acetaminophen (Tylenol) 650 mg PO Q4H PRN PRN PRN Reason: fever, pain -01/02 Last Admin: 11/20/19 21:45 Dose: 650 mg Documented by: [facility]) [facility] Last Admin: 11/21/19 08:12 Dose: 400 mg Documented by: Bupropion HCl (Wellbutrin Tablets) 100 mg PO DAILY [facility] Last Admin: 11/21/19 08:12 Dose: 100 mg Documented by: Carvedilol (Coreg) 6.25 mg PO 0800,1200 [facility] Last Admin: 11/21/19 08:12 Dose: 6.25 mg Documented by: Cholecalciferol (Vitamin D (25mcg)) 3,000 unit PO DAILY [facility] Last Admin: 11/21/19 08:11 Dose: 3,000 unit Documented by: Cyanocobalamin (Vitamin B12) 1,000 mcg PO DAILY [facility] Last Admin: 11/21/19 08:11 Dose: 1,000 mcg Documented by: Diazepam (Valium) 5 mg PO 4X/DAY PRN PRN PRN Reason: SPASMS Last Admin: 11/19/19 05:26 Dose: 5 mg Documented by: Docusate Sodium (Colace) 100 mg PO BID [facility] Last Admin: 11/21/19 08:11 Dose: 100 mg Documented by: Heparin Sodium (Beef Lung) () 50 units IV UD PRN PRN Reason: PICC Line Heparin Flush Heparin Sodium (Porcine) (Heparin Na) 5,000 unit SC Q8 [facility] Last Admin: 11/21/19 06:10 Dose: 5,000 unit Documented by: Hydrocortisone Sodium Succinate (Solu-Cortef) 50 mg IV Q12 [facility] Last Admin: 11/21/19 08:13 Dose: 50 mg Documented by: Pantoprazole Sodium 40 mg/ (Sodium Chloride) 110 mls @ 330 mls/hr IV Q12 [facility] Last Admin: 11/21/19 08:12 Dose: 330 mls/hr Documented by: Levothyroxine Sodium (Synthroid) 25 mcg PO DAILY@0600 [facility] Last Admin: 11/21/19 06:10 Dose: 25 mcg Documented by: Multivitamins/Minerals (Multivitamin With Minerals (Bkc)) 2 tablet PO DAILYCM [facility] Last Admin: 11/21/19 08:11 Dose: 2 tablet Documented by: Sertraline HCl (Zoloft) 50 mg PO BID [facility] Last Admin: 11/21/19 08:12 Dose: 50 mg Documented by: Sodium Chloride () 10 - 40 ml IV UD PRN PRN Reason: Open End PICC Flush Last Admin: 11/21/19 01:05 Dose: 10 ml Documented by: Sodium Chloride (0.9% Nacl (Sterile) Posiflush) 10 - 40 ml IV UD PRN PRN Reason: Port access or dressing change Tolterodine Tartrate (Detrol La) 4 mg PO DAILY [facility] Last Admin: 11/21/19 08:11 Dose: 4 mg Documented by: Medical Necessity - Tobacco Use Smoking Status: Never smoker Assessment/Plan All Active Problems (Last Reviewed 07/19/19 @ 22:[address] Anthony Pisano MD) Morbid obesity (Acute) Metabolic acidosis (Acute) Shock (Acute) Acute renal failure (Acute) Hyperkalemia (Acute) Acute exacerbation of CHF (congestive heart failure) (Acute) 1. Acute renal failure due to ischemic ATN, hypotension from profound dehydration on diuretics at F. Creatinine improved today, renal fxn recovering. No further dialysis. May remove temp dialysis catheter if renal continues to improve tomorrow. 2. Acute hyperkalemia resolved. 3. Chronic abdominal wound on iv antibx at [facility] with PICC line. WBC 12.9K today. renal dose iv antibx. Bld cx pending 4. shock, hypotension off pressors. bld cx no growth so far 5. Morbid obesity 6. Anemia s/p prbc DW CCM, hospitalist
--- NOTE | 2019-11-21 12:40 | PN_ITS ---
Patient Problems: Active and Suspected Problems (Last Reviewed 07/19/19 @ 22:[address] Anthony Pisano MD) Acute renal failure (Acute) Hyperkalemia (Acute) Subjective: Patient was seen and examined today, his antibiotics were stopped by critical care, his creatinine today was 3.4, BUN was 53. Patient appears stable for transfer to PCU for further care, I talked with critical care concerning his medical condition and plan of care today. Nephrology wants the patient's dialysis catheter to stay in place until tomorrow when his labs are rechecked. Patient's hemoglobin today was 8.3. Patient voices no complaints of shortness of breath or chest discomfort to this examiner today. Objective: Objective: General: Alert, Oriented x3, Cooperative, No apparent distress, Well developed, Well nourished HEENT: Atraumatic, PERRLA, EOMI, Normocephalic Oral: Moist Mucosa Neck: Supple, Trachea Midline, Thyroid Normal Size and Texture Lungs: Clear to auscultation, Normal air movement, No rhonchi, No wheeze, No rales Cardiovascular: Regular rate, Regular Rhythm, Normal S1, Normal S2, No murmurs, PMI Normal, No rub noted, No Gallop Abdomen: Bowel Sounds Present, Soft, Non-Distended, Obese, - - Bandage is noted over the lower abdomen Extremities: No clubbing, No cyanosis, No edema, Capillary Refill Less than 3 Seconds Skin: No rashes, No breakdown Musculoskeletal: No Tenderness to Palpation of Joints or Extremities Neurological: Cranial nerves II-XII grossly intact, Sensory exam intact to light touch and pain, Coordination normal Psych/Mental Status: Normal Affect, Appropriate - Physical Exam Vitals/I&O's: Vital Signs Temp Pulse Resp BP Pulse Ox 99.0 F 77 16 125/79 H 94 11/21/19 12:11/21/19 12:00 11/21/19 12:11/21/19 12:11/21/19 12:00 Oxygen Flow Rate (L/min) 2 Oxygen Delivery Method Nasal Cannula Weight: 177.2 kg Body Mass Index (BMI) 63.1 Intake and Output for Last 24 Hours 11/19/19 11/20/19 11/21/19 23:59 23:59 23:59 Intake Total 1697.75 / 1707.15 1151.75 / 1151.75 440 / 440 Output Total 1780 / 1830 1600 / 1600 705 / 705 Balance -82.25 / -122.85 -448.25 / -448.25 -265 / -265 Microbiology Past 72 Hours 11/17/19 20:28 Urine Catheter - Catheter Urine Culture - Final Staphylococcus haemolyticus 11/17/19 20:32 Blood Culture (Wb) - Pic Blood Culture - Preliminary No growth in 48 hours. 11/17/19 20:46 Blood Culture (Wb) - Anticubital Right Blood Culture - Preliminary No growth in 48 hours. 11/18/19 10:30 Stool Stool Occult Blood (SASHA) - Final Laboratory Results 11/18/19 06:45: Crossmatch See Detail 11/21/19 04:00: Sodium 144, Potassium 3.2 L, Chloride 106, Carbon Dioxide 28.0, BUN 53 H, Creatinine 3.44 H, Estim Creat Clear Calc 20.86, Est GFR (MDRD) Af Amer 24 L, Est GFR (MDRD) Non-Af 20 L, BUN/Creatinine Ratio 15.4, Glucose 110 H, Calcium 8.5, Phosphorus 4.4, Albumin 2.4 L 11/21/19 04:00: WBC 8.1, RBC 2.44 L, Hgb 8.3 L, Hct 25.7 L, MCV 105.3 H, MCH 34.0 H, MCHC 32.3, RDW Std Deviation 60.0 H, RDW Coeff of Florina 15.9 H, Plt Count 185, MPV 9.0, Immature Gran % (Auto) 0.600, Neut % (Auto) 89.8 H, Lymph % (Auto) 3.0 L, [place] % (Auto) 6.5, Eos % (Auto) 0.0, Baso % (Auto) 0.1, Absolute Neuts (auto) 7.3, Absolute Lymphs (auto) 0.24 L, Nucleated RBC % 0, Differential Comment SCANNED Current Medications Acetaminophen (Tylenol) 650 mg PO Q4H PRN PRN PRN Reason: fever, pain 1-01/02 Last Admin: 11/20/19 21:45 Dose: 650 mg Documented by: [facility]iodarone [facility] ([facility]) [facility] Last Admin: 08/28/20 08:12 Dose: 400 mg Documented by: Bupropion HCl (Wellbutrin Tablets) 100 mg PO DAILY [facility] Last Admin: 11/21/19 08:12 Dose: 100 mg Documented by: Carvedilol (Coreg) 6.25 mg PO 0800,1200 [facility] Last Admin: 11/21/19 12:31 Dose: 6.25 mg Documented by: Cholecalciferol (Vitamin D (25mcg)) 3,000 unit PO DAILY [facility] Last Admin: 11/21/19 08:11 Dose: 3,000 unit Documented by: Cyanocobalamin (Vitamin B12) 1,000 mcg PO DAILY [facility] Last Admin: 11/21/19 08:11 Dose: 1,000 mcg Documented by: Diazepam (Valium) 5 mg PO 4X/DAY PRN PRN PRN Reason: SPASMS Last Admin: 11/19/19 05:26 Dose: 5 mg Documented by: Docusate Sodium (Colace) 100 mg PO BID [facility] Last Admin: 11/21/19 08:11 Dose: 100 mg Documented by: Heparin Sodium (Beef Lung) () 50 units IV UD PRN PRN Reason: PICC Line Heparin Flush Heparin Sodium (Porcine) (Heparin Na) 5,000 unit SC Q8 [facility] Last Admin: 11/21/19 06:10 Dose: 5,000 unit Documented by: Hydrocortisone Sodium Succinate (Solu-Cortef) 50 mg IV Q12 [facility] Last Admin: 11/21/19 08:13 Dose: 50 mg Documented by: Levothyroxine Sodium (Synthroid) 25 mcg PO DAILY@0600 [facility] Last Admin: 11/21/19 06:10 Dose: 25 mcg Documented by: Multivitamins/Minerals (Multivitamin With Minerals (Bkc)) 2 tablet PO DAILYCM S Last Admin: 11/21/19 08:11 Dose: 2 tablet Documented by: Pantoprazole Sodium (Protonix) 40 mg PO BID [facility] Sertraline HCl (Zoloft) 50 mg PO BID [facility] Last Admin: 11/21/19 08:12 Dose: 50 mg Documented by: Sodium Chloride () 10 - 40 ml IV UD PRN PRN Reason: Open End PICC Flush Last Admin: 11/21/19 08:57 Dose: 20 ml Documented by: Sodium Chloride (0.9% Nacl (Sterile) Posiflush) 10 - 40 ml IV UD PRN PRN Reason: Port access or dressing change Tolterodine Tartrate (Detrol La) 2 mg PO DAILY [facility] Medical Necessity - Tobacco Use Smoking Status: Never smoker Assessment/Plan All Active Problems (Last Reviewed 07/19/19 @ 22:[address] Anthony Pisano MD) Morbid obesity (Acute) Metabolic acidosis (Acute) Shock (Acute) Acute renal failure (Acute) Hyperkalemia (Acute) Acute exacerbation of CHF (congestive heart failure) (Acute) #1 acute shock-etiology unclear at this point, patient again is off pressors and is stable for transfer to PCU for further care #2 acute renal failure-etiology unclear, possibly ATN from hypotension, retinae and is improving, it is likely the patient will not require further dialysis treatments #3 metabolic encephalopathy-resolved #4 morbid obesity #5 anemia-etiology unclear at this point, patient was transfused 1 unit of packed red blood cells yesterday, hemoglobin appears stable #6 large abdominal wound status post panniculectomy-wound care is participating in his care #7 hyperkalemia-resolved #8 elevated troponins-I do not think these are significant at this time #9 generalized debility-patient will need pre-CERT to return to an extended care facility for further care Inpatient E&M: 48156 Subs Hosp L2
--- NOTE | 2019-11-21 13:53 | CASEMGMT ---
Addendum entered by Lesly Sutton 11/21/19 14:43: BEATRICE spoke with Anette from [facility]. She started the pre-cert for patient. SW put a green sheet on chart in the event [facility] gets pre-cert. Lesly NAIK Original Note: BEATRICE called [facility] and left a voice mail letting them know patient will likely not need dialysis at d/c. BEATRICE faxed updates and asked them to please start pre-cert if they have not already. Plan: [facility] pending insurance approval. Lesly NAIK
--- NOTE | 2019-11-21 15:04 | NURSING ---
1420: Report given to CONCHA Ramirez. Patient transferred from [id number] to PCU [id number] in stable condition with patient belongings including cell phone and denture partial.
--- NOTE | 2019-11-21 15:41 | NURSING ---
Anette from [facility] called to say that precert is back and ok to send in am.
[2019-11-21] MEDS: Pantoprazole Sodium 40 MG Tablet PO (21:18)
[2019-11-22] VITALS (13 sets, daily range): BP systolic 91–119; BP diastolic 53–67; PULSE 59–95; RESP 17–20; TEMP 36.4–36.9; O2SAT 92–99
--- NOTE | 2019-11-22 04:09 | EKG12_ITS ---
Test Reason : RHYTHM CHG Blood Pressure : / mmHG Vent. Rate : 129 BPM Atrial Rate : 211 BPM P-R Int : 000 ms QRS Dur : 098 ms QT Int : 330 ms P-R-T Axes : 063 047 088 degrees QTc Int : 483 ms Atrial flutter with variable A-V block with premature ventricular or aberrantly conducted complexes Low voltage QRS Septal infarct , age undetermined Abnormal ECG When compared with ECG of 19-NOV-2019 21:42, MANUAL COMPARISON REQUIRED, DATA IS UNCONFIRMED Confirmed by HARRISON KINNEY, MODESTA ([id number]), purchasing expeditor EDVIN VAN ([id number]) on 11/27/2019 11:08:17 AM Referred By: DR MALHOTRA Confirmed By:MODESTA TERRY MD
--- NOTE | 2019-11-22 06:08 | PN_ITS ---
Patient Problems: Active and Suspected Problems (Last Reviewed 07/19/19 @ 22:[address] Anthony Pisano MD) Acute renal failure (Acute) Hyperkalemia (Acute) Subjective: The patient was seen and examined at the bedside this morning. Events from the last 24 hours have been reviewed. The patient is currently afebrile, hemodynamically stable and maintaining appropriate oxygen saturations on 2 L/min via nasal cannula. The patient has done well clinically following transfer out of the medical intensive care unit. The patient denies any resting shortness of breath or chest pain today. Objective: The patient's most recent lab work, culture data and imaging studies have all been personally reviewed. Renal ultrasound was unremarkable. Coronavirus PCR was negative. MRSA screen was negative. Blood and urine cultures have shown no growth to date. - Physical Exam Vitals/I&O's: Vital Signs Temp Pulse Resp BP Pulse Ox 97.6 F L 72 18 108/67 99 11/22/19 04:48 11/22/19 04:48 11/22/19 04:48 11/22/19 04:48 11/22/19 04:48 Oxygen Flow Rate (L/min) 2 Oxygen Delivery Method Nasal Cannula Weight: 390 lb 3.491 oz Body Mass Index (BMI) 63.1 Intake and Output for Last 24 Hours 11/20/19 11/21/19 11/22/19 23:59 23:59 23:59 Intake Total 1151.75 / 1151.75 1170 / 1170 Output Total 1600 / 1600 1330 / 1330 Balance -448.25 / -448.25 -160 / -160 General: Alert, Cooperative, No apparent distress HEENT: Atraumatic, PERRLA, Normocephalic Oral: Moist Mucosa, No Gingival or Mucosal Lesions/ Ulcerations Neck: Supple, No Nodes, Trachea Midline Lungs: Diminished Cardiovascular: Normal S1, Normal S2, Irregular Rate Abdomen: Bowel Sounds Present, Soft, Non Tender, Obese Extremities: No clubbing, No cyanosis, Edema Skin: - - No significant change from previous. Musculoskeletal: No Muscle Wasting Lymphatic: No Cervical, Supraclavicular, or Inguinal Adenopathy Neurological: Cranial nerves II-XII grossly intact, Neuro grossly intact Psych/Mental Status: Normal Affect, Appropriate Labs (Last 48 Hours) 11/18/19 11/18/19 11/20/19 06:45 17:40 04:30 WBC RBC Hgb Hct MCV MCH MCHC RDW Std Deviation RDW Coeff of Florina Plt Count MPV Immature Gran % (Auto) Neut % (Auto) Lymph % (Auto) Rooks % (Auto) Eos % (Auto) Baso % (Auto) Absolute Neuts (auto) Absolute Lymphs (auto) Nucleated RBC % Differential Comment SCANNED Hypochromasia 1+ Sodium Potassium Chloride Carbon Dioxide BUN Creatinine Estim Creat Clear Calc Est GFR (MDRD) Af Amer Est GFR (MDRD) Non-Af BUN/Creatinine Ratio Glucose Calcium Phosphorus Albumin Hep B Core Total Ab Negative Crossmatch See Detail 11/21/19 11/21/19 04:00 04:00 WBC 8.1 RBC 2.44 L Hgb 8.3 L Hct 25.7 L MCV 105.3 H MCH 34.0 H MCHC 32.3 RDW Std Deviation 60.0 H RDW Coeff of Florina 15.9 H Plt Count 185 MPV 9.0 Immature Gran % (Auto) 0.600 Neut % (Auto) 89.8 H Lymph % (Auto) 3.0 L Rooks % (Auto) 6.5 Eos % (Auto) 0.0 Baso % (Auto) 0.1 Absolute Neuts (auto) 7.3 Absolute Lymphs (auto) 0.24 L Nucleated RBC % 0 Differential Comment SCANNED Hypochromasia Sodium 144 Potassium 3.2 L Chloride 106 Carbon Dioxide 28.0 BUN 53 H Creatinine 3.44 H Estim Creat Clear Calc 20.86 Est GFR (MDRD) Af Amer 24 L Est GFR (MDRD) Non-Af 20 L BUN/Creatinine Ratio 15.4 Glucose 110 H Calcium 8.5 Phosphorus 4.4 Albumin 2.4 L Hep B Core Total Ab Crossmatch Microbiology 11/17/19 20:28 Urine Catheter - Catheter Urine Culture - Final Staphylococcus haemolyticus 11/17/19 20:32 Blood Culture (Wb) - Pic Blood Culture - Preliminary No growth in 48 hours. 11/17/19 20:46 Blood Culture (Wb) - Anticubital Right Blood Culture - Preliminary No growth in 48 hours. Clinical Impression(s) from Imaging Studies Brain CT 11/17/19 20:04 IMPRESSION: Chronic involutional changes of the brain. Electronically Signed: Giuseppe Hernandez MD at 21:27 EDT , Service support , Chest X-Ray 11/17/19 21:10 IMPRESSION: Chronic CHF Electronically Signed: Giuseppe Hernandez MD at 21:47 EDT , Service support , Renal Ultrasound 11/18/19 06:41 IMPRESSION: Normal ultrasound of the kidneys . Electronically Signed: Chino Crowder, at 10:30 EDT , Service support , Chest X-Ray 11/18/19 07:17 IMPRESSION: Cardiomegaly. Mild vascular congestion. Stable examination Electronically Signed: Chino Crowder, at 12:28 EDT , Service support , Chest X-Ray 11/18/19 15:13 IMPRESSION: The tip of the left internal jugular venous catheter is at the junction of the superior vena cava and left brachiocephalic vein. The remainder of the examination is unchanged. Electronically Signed: Chino Crowder, at 15:52 EDT , Service support , Current Medications Acetaminophen (Tylenol) 650 mg PO Q4H PRN PRN PRN Reason: fever, pain -01/02 Last Admin: 11/20/19 21:45 Dose: 650 mg Documented by: Amiodarone [facility] ([facility]) [facility] Last Admin: 11/21/19 08:12 Dose: 400 mg Documented by: Bupropion HCl (Wellbutrin Tablets) 100 mg PO DAILY [facility] Last Admin: 11/21/19 08:12 Dose: 100 mg Documented by: Carvedilol (Coreg) 6.25 mg PO 0800,1200 [facility] Last Admin: 11/21/19 12:31 Dose: 6.25 mg Documented by: Cholecalciferol (Vitamin D (25mcg)) 3,000 unit PO DAILY [facility] Last Admin: 11/21/19 08:11 Dose: 3,000 unit Documented by: Cyanocobalamin (Vitamin B12) 1,000 mcg PO DAILY [facility] Last Admin: 11/21/19 08:11 Dose: 1,000 mcg Documented by: Diazepam (Valium) 5 mg PO 4X/DAY PRN PRN PRN Reason: SPASMS Last Admin: 11/19/19 05:26 Dose: 5 mg Documented by: Docusate Sodium (Colace) 100 mg PO BID [facility] Last Admin: 11/21/19 21:18 Dose: 100 mg Documented by: Heparin Sodium (Beef Lung) () 50 units IV UD PRN PRN Reason: PICC Line Heparin Flush Heparin Sodium (Porcine) (Heparin Na) 5,000 unit SC Q8 [facility] Last Admin: 11/21/19 21:18 Dose: 5,000 unit Documented by: Hydrocortisone Sodium Succinate (Solu-Cortef) 50 mg IV Q12 [facility] Last Admin: 11/21/19 21:20 Dose: 50 mg Documented by: Levothyroxine Sodium (Synthroid) 25 mcg PO DAILY@0600 [facility] Last Admin: 11/21/19 06:10 Dose: 25 mcg Documented by: Multivitamins/Minerals (Multivitamin With Minerals (Bkc)) 2 tablet PO DAILYCM [facility] Last Admin: 11/21/19 08:11 Dose: 2 tablet Documented by: Pantoprazole Sodium (Protonix) 40 mg PO BID [facility] Last Admin: 11/21/19 21:18 Dose: 40 mg Documented by: Sertraline HCl (Zoloft) 50 mg PO BID [facility] Last Admin: 11/21/19 21:18 Dose: 50 mg Documented by: Sodium Chloride () 10 - 40 ml IV UD PRN PRN Reason: Open End PICC Flush Last Admin: 11/21/19 21:20 Dose: 10 ml Documented by: Sodium Chloride (0.9% Nacl (Sterile) Posiflush) 10 - 40 ml IV UD PRN PRN Reason: Port access or dressing change Tolterodine Tartrate (Detrol La) 2 mg PO DAILY [facility] Medical Necessity - Tobacco Use Smoking Status: Never smoker Assessment/Plan All Active Problems (Last Reviewed 07/19/19 @ 22:[address] Anthony Pisano MD) Morbid obesity (Acute) Metabolic acidosis (Acute) Shock (Acute) Acute renal failure (Acute) Hyperkalemia (Acute) Acute exacerbation of CHF (congestive heart failure) (Acute) RECOMMENDATIONS: 1. Okay to discontinue stress dose steroids today. 2. Continue to wean supplemental oxygen to maintain saturations at or above 90%. 3. Encourage incentive spirometer use and mobilize patient as tolerated. 4. Continue PPI therapy. 5. Additional hemodialysis support per nephrology recommendations. 6. Will sign off from a critical care perspective. Please call with any additional questions. IMPRESSIONS: 1. Undifferentiated shock Although the exact etiology for the patient's hypotension is unclear, the patient did meet 2 sirs criteria on admission with a respiratory rate greater than 20 and a temperature less than 96.8 ?F. In addition, he has evidence of end-organ dysfunction and significant hemodynamic instability requiring vasopressor support. Nevertheless, the patient's hemodynamic instability may also come as a consequence of intravascular volume depletion coupled with acute kidney injury and concurrent use of multiple antihypertensives and outpatient diuretics. Although he was initially maintained on antimicrobials for several days, no identifiable source of infection was ever identified. Therefore, antimicrobials were discontinued. The patient's hemodynamics have subsequently stabilized. Stress dose steroids have been weaned and will be discontinued today. 2. Acute on chronic kidney disease/hyperkalemia Improving. Likely prerenal in etiology with a component of ischemic ATN in the setting of #1. Nephrology is currently following. Will continue current supportive measures with plans for ongoing hemodialysis support per nephrology recommendations. 3. Metabolic encephalopathy Resolved. Likely related to metabolic derangements in the setting of numbers 1 and 2. Avoid sedating medications. 4. Anemia The patient has had a slow downward decline in hemoglobin, without any overt signs of blood loss. We will continue to monitor H&H daily. Plan to transfuse if hemoglobin drops below 7 g/dL. Continue PPI therapy. 5. Stable abdominal wound/super morbid obesity/cardiomyopathy status post ICD/paroxysmal atrial fibrillation/questionable TEX and COPD Complicates care, management, recovery and prognosis. Physical therapy to continue to work with the patient. This note was generated with MobileTagation software. It may contain incorrect words, spelling, and punctuation that were not noted in checking the note before signing. Inpatient E&M: 77157 Subs Hosp L2
[2019-11-22] MEDS: Levothyroxine 25 MCG TABLET PO (06:09)
[2019-11-22] MEDS: Heparin Injection (Vial) 5,000 UNIT/ML VIAL 5000 UNIT SC ×3 (06:11→22:04)
[2019-11-22 06:17] LABS: Absolute Neutrophil Count 7.7 X10^3/uL (2.0-7.7); Basophil# 0.01 X10^3/uL; Basophil% 0.1 % (0-1); Eosinophil# 0.07 X10^3/uL; Eosinophils% 0.8 % (0-5); Hematocrit 27.7 % (40-54); Hemoglobin 8.8 g/dL (13.0-16.5); Lymphocyte % 5.5 % (19-41); Mean Corp Hgb Conc 31.8 g/dL (32-36); Mean Corpuscular Hgb 34.6 pg (27.0-32.0); Mean Corpuscular Volume 109.1 fL (80-94); Mean Platelet Vol. 9.2 fl (6.2-12.0); Monocyte% 8.7 % (0-10); NRBC Flagged by Analyzer 0.3 % (0-5); Neutrophil # 7.71 X10^3/uL (2.7-7.7); Neutrophil % 84.2 % (47-70); POSITIVE DIFFERENTIAL YES; Platelet Count 202 K/mm3 (150-450); RBC Distribution Width SD 63.6 fl (35.1-43.9); Red Blood Count 2.54 M/mm3 (4.6-6.2); White Blood Count 9.2 K/mm3 (4.4-11.0)
[2019-11-22 06:23] LABS: Differential Indicated SCAN CRITERIA MET
[2019-11-22 06:34] LABS: Albumin, Serum 2.5 g/dL (3.2-5.0); BUN 60 mg/dL (7-18); Calcium,Total 8.7 mg/dL (8.5-10.1); Chloride 108 mmol/L (98-107); EST Glomerular Filtration Rate 23 mL/min (>60); Est Glom Filt Rate - Afr Amer 28 mL/min (>60); Estimated Creatinine Clearance 23.93 ml/min; Glucose 101 mg/dL (74-106); Phosphorus 3.3 mg/dL (2.5-4.9); Potassium 3.5 mmol/L (3.5-5.1); Sodium Level 145 mmol/L (136-145)
[2019-11-22 06:40] LABS: Differential Comment SCANNED
--- NOTE | 2019-11-22 08:26 | PCM.PN.REN ---
Patient Problems: Active and Suspected Problems (Last Reviewed 07/19/19 @ 22:[address] Anthony Pisano MD) Acute renal failure (Acute) Hyperkalemia (Acute) Subjective: chart reviewed vitals reviewed Oxygenation stable. Urine output good. Creatiinine improving. Cr 3.0 with baseline 1.2. OK to remove temp dialysis catheter. No further dialysis needed. - Physical Exam Vitals/I&O's: Vital Signs Temp Pulse Resp BP Pulse Ox 97.6 F L 72 18 108/67 96 11/22/19 04:48 11/22/19 04:48 11/22/19 04:48 11/22/19 04:48 11/22/19 07:30 Oxygen Flow Rate (L/min) 2 Oxygen Delivery Method Nasal Cannula Weight: 177 kg Body Mass Index (BMI) 63.1 Intake and Output for Last 24 Hours 11/20/19 11/21/19 11/22/19 23:59 23:59 23:59 Intake Total 1151.75 / 1151.75 1170 / 1170 150 / 150 Output Total 1600 / 1600 1330 / 1330 400 / 400 Balance -448.25 / -448.25 -160 / -160 -250 / -250 Microbiology Past 72 Hours 11/17/19 20:28 Urine Catheter - Catheter Urine Culture - Final Staphylococcus haemolyticus 11/17/19 20:32 Blood Culture (Wb) - Pic Blood Culture - Preliminary No growth in 48 hours. 11/17/19 20:46 Blood Culture (Wb) - Anticubital Right Blood Culture - Preliminary No growth in 48 hours. Laboratory Results 11/22/19 05:52: Sodium 145, Potassium 3.5, Chloride 108 H, Carbon Dioxide 32.0, BUN 60 H, Creatinine 3.00 H, Estim Creat Clear Calc 23.93, Est GFR (MDRD) Af Amer 28 L, Est GFR (MDRD) Non-Af 23 L, BUN/Creatinine Ratio 20.0, Glucose 101, Calcium 8.7, Phosphorus 3.3, Albumin 2.5 L 11/22/19 05:52: WBC 9.2, RBC 2.54 L, Hgb 8.8 L, Hct 27.7 L, MCV 109.1 H, MCH 34.6 H, MCHC 31.8 L, RDW Std Deviation 63.6 H, RDW Coeff of Florina 16.0 H, Plt Count 202, MPV 9.2, Immature Gran % (Auto) 0.700, Neut % (Auto) 84.2 H, Lymph % (Auto) 5.5 L, [place] % (Auto) 8.7, Eos % (Auto) 0.8, Baso % (Auto) 0.1, Absolute Neuts (auto) 7.7, Absolute Lymphs (auto) 0.50 L, Nucleated RBC % 0.3, Differential Comment SCANNED 11/22/19 05:52: Sodium Cancelled, Potassium Cancelled, Chloride Cancelled, Carbon Dioxide Cancelled, Anion Gap Cancelled, BUN Cancelled, Creatinine Cancelled, Estim Creat Clear Calc Cancelled, Est GFR (MDRD) Af Amer Cancelled, Est GFR (MDRD) Non-Af Cancelled, BUN/Creatinine Ratio Cancelled, Glucose Cancelled, Calcium Cancelled Current Medications Acetaminophen (Tylenol) 650 mg PO Q4H PRN PRN PRN Reason: fever, pain -01/02 Last Admin: 11/20/19 21:45 Dose: 650 mg Documented by: [facility]) [facility] Last Admin: 11/21/19 08:12 Dose: 400 mg Documented by: Bupropion HCl (Wellbutrin Tablets) 100 mg PO DAILY [facility] Last Admin: 11/21/19 08:12 Dose: 100 mg Documented by: Carvedilol (Coreg) 6.25 mg PO 0800,1200 [facility] Last Admin: 11/21/19 12:31 Dose: 6.25 mg Documented by: Cholecalciferol (Vitamin D (25mcg)) 3,000 unit PO DAILY [facility] Last Admin: 11/21/19 08:11 Dose: 3,000 unit Documented by: Cyanocobalamin (Vitamin B12) 1,000 mcg PO DAILY [facility] Last Admin: 11/21/19 08:11 Dose: 1,000 mcg Documented by: Diazepam (Valium) 5 mg PO 4X/DAY PRN PRN PRN Reason: SPASMS Last Admin: 11/19/19 05:26 Dose: 5 mg Documented by: Docusate Sodium (Colace) 100 mg PO BID [facility] Last Admin: 11/21/19 21:18 Dose: 100 mg Documented by: Heparin Sodium (Beef Lung) () 50 units IV UD PRN PRN Reason: PICC Line Heparin Flush Heparin Sodium (Porcine) (Heparin Na) 5,000 unit SC Q8 [facility] Last Admin: 11/22/19 06:11 Dose: 5,000 unit Documented by: Levothyroxine Sodium (Synthroid) 25 mcg PO DAILY@0600 [facility] Last Admin: 11/22/19 06:09 Dose: 25 mcg Documented by: Multivitamins/Minerals (Multivitamin With Minerals (Bkc)) 2 tablet PO DAILYCM [facility] Last Admin: 11/21/19 08:11 Dose: 2 tablet Documented by: Pantoprazole Sodium (Protonix) 40 mg PO BID [facility] Last Admin: 11/21/19 21:18 Dose: 40 mg Documented by: Sertraline HCl (Zoloft) 50 mg PO BID [facility] Last Admin: 11/21/19 21:18 Dose: 50 mg Documented by: Sodium Chloride () 10 - 40 ml IV UD PRN PRN Reason: Open End PICC Flush Last Admin: 11/21/19 21:20 Dose: 10 ml Documented by: Sodium Chloride (0.9% Nacl (Sterile) Posiflush) 10 - 40 ml IV UD PRN PRN Reason: Port access or dressing change Tolterodine Tartrate (Detrol La) 2 mg PO DAILY [facility] Medical Necessity - Tobacco Use Smoking Status: Never smoker Assessment/Plan All Active Problems (Last Reviewed 07/19/19 @ 22:[address] Anthony Pisano MD) Morbid obesity (Acute) Metabolic acidosis (Acute) Shock (Acute) Acute renal failure (Acute) Hyperkalemia (Acute) Acute exacerbation of CHF (congestive heart failure) (Acute)
[2019-11-22] MEDS: Cyanocobalamin 500 MCG Tablet 1000 MCG PO (09:27)
[2019-11-22] MEDS: Docusate Sodium 100 MG Capsule PO (09:27)
[2019-11-22] MEDS: Multivitamins,Ther W-Minerals Tablet 2 TABLET PO (09:27)
[2019-11-22] MEDS: Pantoprazole Sodium 40 MG Tablet PO ×2 (09:28→22:04)
[2019-11-22] MEDS: Amiodarone 200 MG Tablet 400 MG PO (09:28)
[2019-11-22] MEDS: buPROPion 100 MG Tablet PO (09:28)
[2019-11-22] MEDS: Sertraline 50 MG Tablet PO ×2 (09:29→22:04)
[2019-11-22] MEDS: Juven (unflavored) Packet 1 PACKET PO ×2 (09:29→17:20)
[2019-11-22] MEDS: Tolterodine Tartrate 2 MG CAP.SA PO (09:30)
[2019-11-22] MEDS: Carvedilol 6.25 MG Tablet PO (11:52)
--- NOTE | 2019-11-22 12:47 | PCM.PROGNOTE ---
<Joyce Mattson - Last Filed: 11/22/19 13:05> Patient Problems: Active and Suspected Problems (Last Reviewed 07/19/19 @ 22:[address] Anthony Pisano MD) Acute renal failure (Acute) Hyperkalemia (Acute) Subjective: Patient seen and examined. No acute events overnight. Denies current complaints. Discussed plan of care. SNF pending approval. - Physical Exam Vitals/I&O's: Vital Signs Temp Pulse Resp BP Pulse Ox 97.8 F 95 18 94/55 L 99 11/22/19 09:17 11/22/19 12:00 11/22/19 09:17 11/22/19 11:49 11/22/19 09:17 Oxygen Flow Rate (L/min) 2 Oxygen Delivery Method Nasal Cannula Weight: 390 lb 3.491 oz Body Mass Index (BMI) 63.1 Intake and Output for Last 24 Hours 11/20/19 11/21/19 11/22/19 23:59 23:59 23:59 Intake Total 1151.75 / 1151.75 1170 / 1170 150 / 150 Output Total 1600 / 1600 1330 / 1330 400 / 400 Balance -448.25 / -448.25 -160 / -160 -250 / -250 General: Alert, Oriented x3, Cooperative HEENT: Atraumatic, PERRLA, EOMI, Normocephalic Neck: Supple, No JVD, Negative Carotid Bruits Lungs: Clear to auscultation, Normal air movement Cardiovascular: Regular rate, No murmurs Abdomen: Bowel Sounds Present, Soft, Non Tender, Non-Distended, Obese Extremities: No clubbing, No cyanosis, No edema, Capillary Refill Less than 3 Seconds Skin: No rashes, No breakdown, - - Panniculus wound, dressing intact. Musculoskeletal: No Tenderness to Palpation of Joints or Extremities Neurological: Cranial nerves II-XII grossly intact, Neuro grossly intact Psych/Mental Status: Normal Affect, Appropriate Microbiology Past 72 Hours 11/17/19 20:28 Urine Catheter - Catheter Urine Culture - Final Staphylococcus haemolyticus 11/17/19 20:32 Blood Culture (Wb) - Pic Blood Culture - Preliminary No growth in 48 hours. 11/17/19 20:46 Blood Culture (Wb) - Anticubital Right Blood Culture - Preliminary No growth in 48 hours. Laboratory Results 11/22/19 05:52: Sodium 145, Potassium 3.5, Chloride 108 H, Carbon Dioxide 32.0, BUN 60 H, Creatinine 3.00 H, Estim Creat Clear Calc 23.93, Est GFR (MDRD) Af Amer 28 L, Est GFR (MDRD) Non-Af 23 L, BUN/Creatinine Ratio 20.0, Glucose 101, Calcium 8.7, Phosphorus 3.3, Albumin 2.5 L 11/22/19 05:52: WBC 9.2, RBC 2.54 L, Hgb 8.8 L, Hct 27.7 L, MCV 109.1 H, MCH 34.6 H, MCHC 31.8 L, RDW Std Deviation 63.6 H, RDW Coeff of Florina 16.0 H, Plt Count 202, MPV 9.2, Immature Gran % (Auto) 0.700, Neut % (Auto) 84.2 H, Lymph % (Auto) 5.5 L, [place] % (Auto) 8.7, Eos % (Auto) 0.8, Baso % (Auto) 0.1, Absolute Neuts (auto) 7.7, Absolute Lymphs (auto) 0.50 L, Nucleated RBC % 0.3, Differential Comment SCANNED 11/22/19 05:52: Sodium Cancelled, Potassium Cancelled, Chloride Cancelled, Carbon Dioxide Cancelled, Anion Gap Cancelled, BUN Cancelled, Creatinine Cancelled, Estim Creat Clear Calc Cancelled, Est GFR (MDRD) Af Amer Cancelled, Est GFR (MDRD) Non-Af Cancelled, BUN/Creatinine Ratio Cancelled, Glucose Cancelled, Calcium Cancelled Current Medications Acetaminophen (Tylenol) 650 mg PO Q4H PRN PRN PRN Reason: fever, pain 1-01/02 Last Admin: 11/20/19 21:45 Dose: 650 mg Documented by: [facility] Last Admin: 11/22/19 09:28 Dose: 400 mg Documented by: Bupropion HCl (Wellbutrin Tablets) 100 mg PO DAILY [facility] Last Admin: 11/22/19 09:28 Dose: 100 mg Documented by: Carvedilol (Coreg) 6.25 mg PO 0800,1200 [facility] Last Admin: 11/22/19 11:52 Dose: 6.25 mg Documented by: Cholecalciferol (Vitamin D (25mcg)) 3,000 unit PO DAILY [facility] Last Admin: 11/22/19 09:28 Dose: 3,000 unit Documented by: Cyanocobalamin (Vitamin B12) 1,000 mcg PO DAILY [facility] Last Admin: 11/22/19 09:27 Dose: 1,000 mcg Documented by: Diazepam (Valium) 5 mg PO 4X/DAY PRN PRN PRN Reason: SPASMS Last Admin: 11/19/19 05:26 Dose: 5 mg Documented by: Docusate Sodium (Colace) 100 mg PO BID [facility] Last Admin: 11/22/19 09:27 Dose: 100 mg Documented by: Heparin Sodium (Beef Lung) () 50 units IV UD PRN PRN Reason: PICC Line Heparin Flush Heparin Sodium (Porcine) (Heparin Na) 5,000 unit SC Q8 [facility] Last Admin: 11/22/19 06:11 Dose: 5,000 unit Documented by: Levothyroxine Sodium (Synthroid) 25 mcg PO DAILY@0600 [facility] Last Admin: 11/22/19 06:09 Dose: 25 mcg Documented by: Multivitamins/Minerals (Multivitamin With Minerals (Bkc)) [facility] Last Admin: 11/22/19 09:27 Dose: 2 tablet Documented by: Pantoprazole Sodium (Protonix) 40 mg PO BID [facility] Last Admin: 11/22/19 09:28 Dose: 40 mg Documented by: Sertraline HCl (Zoloft) 50 mg PO BID [facility] Last Admin: 11/22/19 09:29 Dose: 50 mg Documented by: Sodium Chloride () 10 - 40 ml IV UD PRN PRN Reason: Open End PICC Flush Last Admin: 11/21/19 21:20 Dose: 10 ml Documented by: Sodium Chloride (0.9% Nacl (Sterile) Posiflush) 10 - 40 ml IV UD PRN PRN Reason: Port access or dressing change Tolterodine Tartrate (Detrol La) 2 mg PO DAILY [facility] Last Admin: 11/22/19 09:30 Dose: 2 mg Documented by: Medical Necessity - Tobacco Use Smoking Status: Never smoker Assessment/Plan All Active Problems (Last Reviewed 07/19/19 @ 22:[address] Anthony Pisano MD) Morbid obesity (Acute) Metabolic acidosis (Acute) Shock (Acute) Acute renal failure (Acute) Hyperkalemia (Acute) Acute exacerbation of CHF (congestive heart failure) (Acute) 1. Undifferentiated shock-no evidence of infectious etiology. Previously requiring vasopressors. Now hemodynamically stable. Possibly secondary to intravascular volume depletion, hypotension and renal failure. 2. Acute kidney injury on chronic kidney disease-acute renal failure due to ischemic ATN, hypotension and dehydration/diuretic regimen. Nephrology following. Plan to remove temporary dialysis catheter given improvement in renal function. Trend BMP. 3. Metabolic encephalopathy-secondary to above. Resolved. 4. History of cardiomyopathy status post ICD-echocardiogram October 2018 demonstrated an EF of 35%. 5. Paroxysmal atrial fibrillation-continue amiodarone, carvedilol. Not on anticoagulation. 6. Recent panniculectomy-wound RN consult. Continue follow up with plastics. 7. Hypothyroidism-continue Synthroid regimen. 8. Depression-continue sertraline. 9. Super morbid obesity- encouraged diet and lifestyle modifications. Nutrition consult. 10. Acute on chronic macrocytic anemia-requiring 1 unit PRBC. Now stable. Stool negative for occult blood. DVT prophylaxis-Heparin subcu. Discharge planning: SNF pending approval. This patient was seen by SILVANO Leslie under the supervision of Dr. Moura. <Julianna Moura - Last Filed: 11/22/19 13:23> - Physical Exam Vitals/I&O's: Vital Signs Temp Pulse Resp BP Pulse Ox 97.8 F 95 18 94/55 L 99 11/22/19 09:17 11/22/19 12:00 11/22/19 09:17 11/22/19 11:49 11/22/19 09:17 Oxygen Flow Rate (L/min) 2 Oxygen Delivery Method Nasal Cannula Weight: 177 kg Body Mass Index (BMI) 63.1 Intake and Output for Last 24 Hours 11/20/19 11/21/19 11/22/19 23:59 23:59 23:59 Intake Total 1151.75 / 1151.75 1170 / 1170 150 / 150 Output Total 1600 / 1600 1330 / 1330 400 / 400 Balance -448.25 / -448.25 -160 / -160 -250 / -250 Microbiology Past 72 Hours 11/17/19 20:28 Urine Catheter - Catheter Urine Culture - Final Staphylococcus haemolyticus 11/17/19 20:32 Blood Culture (Wb) - Pic Blood Culture - Preliminary No growth in 48 hours. 11/17/19 20:46 Blood Culture (Wb) - Anticubital Right Blood Culture - Preliminary No growth in 48 hours. Laboratory Results 11/22/19 05:52: Sodium 145, Potassium 3.5, Chloride 108 H, Carbon Dioxide 32.0, BUN 60 H, Creatinine 3.00 H, Estim Creat Clear Calc 23.93, Est GFR (MDRD) Af Amer 28 L, Est GFR (MDRD) Non-Af 23 L, BUN/Creatinine Ratio 20.0, Glucose 101, Calcium 8.7, Phosphorus 3.3, Albumin 2.5 L 11/22/19 05:52: WBC 9.2, RBC 2.54 L, Hgb 8.8 L, Hct 27.7 L, MCV 109.1 H, MCH 34.6 H, MCHC 31.8 L, RDW Std Deviation 63.6 H, RDW Coeff of Florina 16.0 H, Plt Count 202, MPV 9.2, Immature Gran % (Auto) 0.700, Neut % (Auto) 84.2 H, Lymph % (Auto) 5.5 L, [place] % (Auto) 8.7, Eos % (Auto) 0.8, Baso % (Auto) 0.1, Absolute Neuts (auto) 7.7, Absolute Lymphs (auto) 0.50 L, Nucleated RBC % 0.3, Differential Comment SCANNED 11/22/19 05:52: Sodium Cancelled, Potassium Cancelled, Chloride Cancelled, Carbon Dioxide Cancelled, Anion Gap Cancelled, BUN Cancelled, Creatinine Cancelled, Estim Creat Clear Calc Cancelled, Est GFR (MDRD) Af Amer Cancelled, Est GFR (MDRD) Non-Af Cancelled, BUN/Creatinine Ratio Cancelled, Glucose Cancelled, Calcium Cancelled Current Medications Acetaminophen (Tylenol) 650 mg PO Q4H PRN PRN PRN Reason: fever, pain 1-01/02 Last Admin: 11/20/19 21:45 Dose: 650 mg Documented by: [facility]iod[facility] ([facility]one) [facility] Last Admin: 11/22/19 09:28 Dose: 400 mg Documented by: Bupropion HCl (Wellbutrin Tablets) 100 mg PO DAILY [facility] Last Admin: 11/22/19 09:28 Dose: 100 mg Documented by: Carvedilol (Coreg) 6.25 mg PO 0800,1200 [facility] Last Admin: 11/22/19 11:52 Dose: 6.25 mg Documented by: Cholecalciferol (Vitamin D (25mcg)) 3,000 unit PO DAILY [facility] Last Admin: 11/22/19 09:28 Dose: 3,000 unit Documented by: Cyanocobalamin (Vitamin B12) 1,000 mcg PO DAILY [facility] Last Admin: 11/22/19 09:27 Dose: 1,000 mcg Documented by: Diazepam (Valium) 5 mg PO 4X/DAY PRN PRN PRN Reason: SPASMS Last Admin: 11/19/19 05:26 Dose: 5 mg Documented by: Docusate Sodium (Colace) 100 mg PO BID [facility] Last Admin: 11/22/19 09:27 Dose: 100 mg Documented by: Heparin Sodium (Beef Lung) () 50 units IV UD PRN PRN Reason: PICC Line Heparin Flush Heparin Sodium (Porcine) (Heparin Na) 5,000 unit SC Q8 [facility] Last Admin: 11/22/19 06:11 Dose: 5,000 unit Documented by: Levothyroxine Sodium (Synthroid) 25 mcg PO DAILY@0600 [facility] Last Admin: 11/22/19 06:09 Dose: 25 mcg Documented by: Multivitamins/Minerals (Multivitamin With Minerals (Bkc)) 2 tablet PO DAILYCM [facility] Last Admin: 11/22/19 09:27 Dose: 2 tablet Documented by: Pantoprazole Sodium (Protonix) 40 mg PO BID [facility] Last Admin: 11/22/19 09:28 Dose: 40 mg Documented by: Sertraline HCl (Zoloft) 50 mg PO BID [facility] Last Admin: 11/22/19 09:29 Dose: 50 mg Documented by: Sodium Chloride () 10 - 40 ml IV UD PRN PRN Reason: Open End PICC Flush Last Admin: 11/21/19 21:20 Dose: 10 ml Documented by: Sodium Chloride (0.9% Nacl (Sterile) Posiflush) 10 - 40 ml IV UD PRN PRN Reason: Port access or dressing change Tolterodine Tartrate (Detrol La) 2 mg PO DAILY [facility] Last Admin: 11/22/19 09:30 Dose: 2 mg Documented by: Assessment/Plan This patient was seen in conjunction with Joyce Mattson NP. I have independently interviewed and examined the patient and reviewed pertinent historical, laboratory, and other data. Please refer to her note for patient's presentation, findings, and recommendations. Patient was seen and examined. He feels improved. Denies any dizziness or chest pain. Wound VAC in situ. No acute events overnight. Vitals were reviewed -stable Physical Exam: Gen: Morbidly obese, not pale, not jaundiced, alert oriented x3 CVS:HS I +II, regular, no murmurs RESP: Color clear to auscultation GI: Wound VAC/suction present, BS present and normal, nontender, no palpable organs EXT:No edema Labs reviewed: ASSESSMENT: 1. Acute undifferentiated shock 2. LARRY, resolving, on dialysis 3. Acute metabolic encephalopathy, resolved 4. Status post panniculectomy 5. Hypothyroidism 6. Depression 7. Super morbid obesity Meds reviewed Plan: We will repeat blood work in a.m. to make sure that patient is really stable Possible discharge in a.m. if stable Inpatient E&M: 14909 Subs Hosp L2
[2019-11-22] MEDS: Acetaminophen 325 MG Tablet 650 MG PO (22:04)
[2019-11-23] VITALS (8 sets, daily range): BP systolic 108–127; BP diastolic 51–70; PULSE 55–76; RESP 17–18; TEMP 36.3–36.9; O2SAT 95–99
[2019-11-23] MEDS: Levothyroxine 25 MCG TABLET PO (05:07)
[2019-11-23] MEDS: Heparin Injection (Vial) 5,000 UNIT/ML VIAL 5000 UNIT SC ×2 (05:07→13:18)
[2019-11-23 05:38] LABS: Hematocrit 27.2 % (40-54); Hemoglobin 8.5 g/dL (13.0-16.5); Mean Corp Hgb Conc 31.3 g/dL (32-36); Mean Corpuscular Volume 108.8 fL (80-94); Mean Platelet Vol. 9.5 fl (6.2-12.0); Platelet Count 199 K/mm3 (150-450); RBC Distribution Width CV 16.1 % (11.6-14.6); RBC Distribution Width SD 63.4 fl (35.1-43.9); White Blood Count 7.9 K/mm3 (4.4-11.0)
[2019-11-23 06:03] LABS: Anion Gap 4 (5-15); BUN 57 mg/dL (7-18); BUN/Creat Ratio 24.9 RATIO (10-20); Calcium,Total 8.6 mg/dL (8.5-10.1); Chloride 110 mmol/L (98-107); Creatinine, Serum 2.29 mg/dL (0.70-1.30); EST Glomerular Filtration Rate 31 mL/min (>60); Est Glom Filt Rate - Afr Amer 38 mL/min (>60); Estimated Creatinine Clearance 31.34 ml/min; Glucose 85 mg/dL (74-106); Potassium 3.3 mmol/L (3.5-5.1); Sodium Level 144 mmol/L (136-145)
[2019-11-23] MEDS: Carvedilol 6.25 MG Tablet PO ×2 (08:32→11:48)
[2019-11-23] MEDS: Multivitamins,Ther W-Minerals Tablet 2 TABLET PO (08:32)
[2019-11-23] MEDS: Juven (unflavored) Packet 1 PACKET PO (08:32)
[2019-11-23] MEDS: Amiodarone 200 MG Tablet 400 MG PO (08:32)
[2019-11-23] MEDS: Pantoprazole Sodium 40 MG Tablet PO (08:33)
[2019-11-23] MEDS: Tolterodine Tartrate 2 MG CAP.SA PO (08:33)
[2019-11-23] MEDS: Cyanocobalamin 500 MCG Tablet 1000 MCG PO (08:34)
[2019-11-23] MEDS: Sertraline 50 MG Tablet PO (08:35)
[2019-11-23] MEDS: buPROPion 100 MG Tablet PO (08:35)
--- NOTE | 2019-11-23 09:04 | PCM.EXTCARCO ---
- Diet 11/20/19 10:25 Diet: Cardiac - Heart Healthy Dietary Modifications:: Sodium Restricted Type of Dietary Supplement:: Ensure Enlive Is pt able to select menu?: No Diet Comments: 120mL at lunch only-prefers chocolate - Routine Orders/Code Status Enema Type: Fleetz Enema Frequency: Daily PRN Suppository Type: Dulcolax 10mg Suppository Frequency: Daily PRN O2 Liters per Minute: 2 O2 Frequency: Continuous Keep PO Greater than or Equal to (%): 90 Routine Lab Work: CBC, BMP - In 3 days then Q Week. - Wound(s) lower abdomen Wound Type: Open Surgical Wound Dressing Change: KCI wound VAC - Suggestions for Active Care Change Position every (hours): 2 Times a day to sit in chair: 3 - Therapies Physical Therapy: Eval and Treat Occupational Therapy: Eval and Treat - Problem/Diagnosis (1) Morbid obesity Status: Chronic Current Visit: No (2) Shock Status: Acute Current Visit: Yes (3) Open wound, abdominal wall, lateral Status: Chronic Current Visit: No (4) Acute renal failure Status: Acute Current Visit: Yes (5) Intertrigo Status: Chronic Comment: abdominal wall skin crease intertrigo Current Visit: No (6) Presence of implantable cardioverter-defibrillator (ICD) Status: Chronic Current Visit: No (7) DDD (degenerative disc disease), lumbosacral Status: Chronic Current Visit: No (8) COPD (chronic obstructive pulmonary disease) Status: Chronic Current Visit: No (9) Anxiety and depression Status: Chronic Current Visit: No (10) History of DVT (deep vein thrombosis) Status: Chronic Current Visit: No (11) TEX (obstructive sleep apnea) Status: Chronic Current Visit: No (12) Hyperlipidemia Status: Chronic Current Visit: No (13) Benign essential hypertension Status: Chronic Current Visit: No (14) Cardiomyopathy Status: Chronic Current Visit: No (15) Atrial fibrillation Status: Chronic Current Visit: No - Allergies/Procedures Done in Hospital Allergies/Adverse Reactions: Allergies latex Allergy (Verified 11/17/19 19:31) Rash warfarin sodium [From Coumadin] Adverse Reaction (Verified 11/17/19 19:31) Other caused 2 holes in lungs and chest, advised to never take again Procedures: None - Type of Care/Length of Stay Estimated LOS: Convalescent Care Less Than 30 days Type of Care Needed: Skilled Rehab Potential: Fair Prognosis: Fair - Additional Orders/Day of Discharge Additional Orders: Wound VAC to abdominal wound at 150 mmHg low continuous suction with change Sunday, Sunday, Sunday. Will need follow-up at wound center. H&P will serve as current which was dated: 11/17/19 Day of Discharge: 11/23/19 - Dietary and Speech Recommendations Dietitian Recommendations/Changes: Will continue w/ cardiac, sodium restricted diet. Continue Danish BID for wound healing. Will provide 120mL Ensure Enlive w/ lunch for additional protein if consumed. - Follow Up Care Primary Care Physician: Mk Chicas MD [Primary Care Provider] - Please follow up with your Primary Care Physician in: 1 Week Please Follow Up With: Reyna Rodriges [employer]-C When: 3-5 Days Please Follow Up With: Tiffany Collado DO When: 2 Weeks Please Follow Up With: Lawrence Avery NP-C When: 12/16/2019 as scheduled
--- NOTE | 2019-11-23 09:12 | DS.PCM_ITS ---
<Joyce Mattson - Last Filed: 11/23/19 09:23> Discharge Date and Diagnosis Date of Admission: 11/17/19 Date of Discharge: 11/23/19 - Primary Discharge Diagnosis Acute Problems: Active Problems (Last Reviewed 07/19/19 @ 22:[address] Anthony Pisano MD) 1. Undifferentiated shock 2. Acute kidney injury on chronic kidney disease stage III 3. Metabolic encephalopathy-secondary to above 4. History of cardiomyopathy status post ICD 5. Paroxysmal atrial fibrillation 6. Recent panniculectomy 7. Hypothyroidism 8. Depression 9. Super morbid obesity 10. Acute on chronic macrocytic anemia - Secondary Discharge Diagnosis Chronic Problems: Chronic Problems (Last Reviewed 07/19/19 @ 22:[address] Anthony Pisano MD) Morbid obesity (Chronic) Open wound, abdominal wall, lateral (Chronic) History of ventral hernia repair (Chronic) with mesh in last 2 years at [facility] Lumbar back pain (Chronic) from weight of massive abdominal panniculus Ventral hernia (Chronic) laparoscopic repair 2 years ago with mesh Lymphedema (Chronic) painful lymphedema lower abdominal wall Intertrigo (Chronic) abdominal wall skin crease intertrigo Recent weight loss (Chronic) about 100 lbs Panniculitis (Chronic) Abdominal panniculus, symptomatic (Chronic) Presence of implantable cardioverter-defibrillator (ICD) (Chronic) History of radiofrequency ablation (RFA) procedure for cardiac arrhythmia (Chronic) 2007 @ [facility] per Dr. Lange, 2009 @ [facility] for WPW with success. 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) Rotator cuff tear (Chronic) COPD (chronic obstructive pulmonary disease) (Chronic) Anxiety and depression (Chronic) History of DVT (deep vein thrombosis) (Chronic) Diastolic heart failure (Chronic) TEX (obstructive sleep apnea) (Chronic) Hyperlipidemia (Chronic) Benign essential hypertension (Chronic) Rheumatoid arthritis (Chronic) dilated right ventricle (Chronic) Cardiomyopathy (Chronic) Super obesity (Chronic) WPW (Dyjsu-Lfqggjuqh-Qcoro syndrome) (Chronic) Atrial fibrillation (Chronic) Hospital Course and Treatment Imaging Results: Diagnostic Data Brain CT 11/17/19 20:04 IMPRESSION: Chronic involutional changes of the brain. Electronically Signed: Giuseppe Hernandez MD at 21:27 EDT , Service support , Renal Ultrasound 11/18/19 06:41 IMPRESSION: Normal ultrasound of the kidneys . Electronically Signed: Chino Cadetdulce, at 10:30 EDT , Service support , Chest X-Ray 11/18/19 15:13 IMPRESSION: The tip of the left internal jugular venous catheter is at the junction of the superior vena cava and left brachiocephalic vein. The remainder of the examination is unchanged. Electronically Signed: Chino Lakesha, at 15:52 EDT , Service support , Consultations 11/18/19 06:26 Consult: Onc/Wound/setter automatic spinning lathe Routine Comment: Dr. Collado- Nephrology Dr. Mcclelland- [employer] Developer Dr. Blunt- general surgery Operations: None Procedures: None Summary of Care Provided: The patient is a 59 year old M admitted 11/17/2019 due to confusion at alf. 1. Undifferentiated shock-no evidence of infectious etiology. Previously requiring vasopressors. Now hemodynamically stable. Possibly secondary to intravascular volume depletion, hypotension and renal failure. Home Spironolactone, Entresto and Lasix held at discharge due to borderline low blood pressure. This will need to be reevaluated as an outpatient. Follow-up with PCP in 1 week. 2. Acute kidney injury on chronic kidney disease-acute renal failure due to ischemic ATN, hypotension and dehydration/diuretic regimen. Nephrology consulted during admission. Patient underwent dialysis during admission. Temporary dialysis catheter removed prior to discharge. Entresto, Spironolactone and Lasix regimen held at discharge pending further outpatient follow-up and repeat BMP. 3. Metabolic encephalopathy-secondary to above. Resolved. 4. History of cardiomyopathy status post ICD-echocardiogram October 2018 demonstrated an EF of 35%. Follow-up with cardiology as scheduled. Will need to discuss reinitiating Entresto, Lasix as noted above. 5. Paroxysmal atrial fibrillation-continue amiodarone, carvedilol. Not on anticoagulation. 6. Recent panniculectomy-wound RN consult. Continue follow up with plastics. Wound VAC in place. Continue wound VAC change as ordered. 7. Hypothyroidism-continue Synthroid regimen. 8. Depression-continue sertraline. 9. Super morbid obesity- encouraged diet and lifestyle modifications. Nutrition consult. 10. Acute on chronic macrocytic anemia-requiring 1 unit PRBC. Now stable. Stool negative for occult blood. Continue twice daily PPI. General: Alert, Oriented x3, Cooperative HEENT: Atraumatic, PERRLA, EOMI, Normocephalic Neck: Supple, No JVD, Negative Carotid Bruits Lungs: Clear to auscultation, Normal air movement Cardiovascular: Regular rate, No murmurs Abdomen: Bowel Sounds Present, Soft, Non Tender, Non-Distended, Obese Extremities: No clubbing, No cyanosis, No edema, Capillary Refill Less than 3 Seconds Skin: No rashes, No breakdown, - - Panniculus wound, dressing intact. Musculoskeletal: No Tenderness to Palpation of Joints or Extremities Neurological: Cranial nerves II-XII grossly intact, Neuro grossly intact Psych/Mental Status: Normal Affect, Appropriate Patient seen and examined prior to discharge. Physical assessment as noted above. Patient is stable for discharge with follow up recommendations as noted above. This patient was seen by SILVANO Leslie under the supervision of Dr. Moura. - Physical Exam Vitals/I&O's: Vital Signs Temp Pulse Resp BP Pulse Ox 97.7 F L 63 18 117/68 97 11/23/19 08:40 11/23/19 08:40 11/23/19 08:40 11/23/19 08:40 11/23/19 08:40 Oxygen Flow Rate (L/min) 2 Oxygen Delivery Method Nasal Cannula Weight: 396 lb 13.313 oz Body Mass Index (BMI) 63.1 Intake and Output for Last 24 Hours 11/21/19 11/22/19 11/23/19 23:59 23:59 23:59 Intake Total 1170 / 1170 225 / 225 100 / 100 Output Total 1330 / 1330 1750 / 1750 400 / 400 Balance -160 / -160 -1525 / -1525 -300 / -300 Microbiology Past 72 Hours 11/17/19 20:32 Blood Culture (Wb) - Pic Blood Culture - Final No growth in 5 days. 11/17/19 20:46 Blood Culture (Wb) - Anticubital Right Blood Culture - Final No growth in 5 days. 11/17/19 20:28 Urine Catheter - Catheter Urine Culture - Final Staphylococcus haemolyticus Laboratory Results 11/18/19 06:45: Crossmatch See Detail 11/23/19 04:45: WBC 7.9, RBC 2.50 L, Hgb 8.5 L, Hct 27.2 L, MCV 108.8 H, MCH 34.0 H, MCHC 31.3 L, RDW Std Deviation 63.4 H, RDW Coeff of Florina 16.1 H, Plt Count 199, MPV 9.5 11/23/19 04:45: Sodium 144, Potassium 3.3 L, Chloride 110 H, Carbon Dioxide 30.0, Anion Gap 4 L, BUN 57 H, Creatinine 2.29 H, Estim Creat Clear Calc 31.34, Est GFR (MDRD) Af Amer 38 L, Est GFR (MDRD) Non-Af 31 L, BUN/Creatinine Ratio 24.9 H, Glucose 85, Calcium 8.6 Current Medications Acetaminophen (Tylenol) 650 mg PO Q4H PRN PRN PRN Reason: fever, pain -01/02 Last Admin: 11/22/19 22:04 Dose: 650 mg Documented by: [facility]) [facility] Last Admin: 11/23/19 08:32 Dose: 400 mg Documented by: Bupropion HCl (Wellbutrin Tablets) 100 mg PO DAILY [facility] Last Admin: 11/23/19 08:35 Dose: 100 mg Documented by: Carvedilol (Coreg) 6.25 mg PO 0800,1200 [facility] Last Admin: 11/23/19 08:32 Dose: 6.25 mg Documented by: Cholecalciferol (Vitamin D (25mcg)) 3,000 unit PO DAILY [facility] Last Admin: 11/23/19 08:33 Dose: 3,000 unit Documented by: Cyanocobalamin (Vitamin B12) 1,000 mcg PO DAILY [facility] Last Admin: 11/23/19 08:34 Dose: 1,000 mcg Documented by: Diazepam (Valium) 5 mg PO 4X/DAY PRN PRN PRN Reason: SPASMS Last Admin: 11/19/19 05:26 Dose: 5 mg Documented by: Docusate Sodium (Colace) 100 mg PO BID [facility] Last Admin: 11/23/19 08:33 Dose: Not Given Documented by: Heparin Sodium (Beef Lung) () 50 units IV UD PRN PRN Reason: PICC Line Heparin Flush Heparin Sodium (Porcine) (Heparin Na) 5,000 unit SC Q8 [facility] Last Admin: 11/23/19 05:07 Dose: 5,000 unit Documented by: Levothyroxine Sodium (Synthroid) 25 mcg PO DAILY@0600 [facility] Last Admin: 11/23/19 05:07 Dose: 25 mcg Documented by: Multivitamins/Minerals (Multivitamin With Minerals (Bkc)) 2 tablet PO DAILYCM [facility] Last Admin: 11/23/19 08:32 Dose: 2 tablet Documented by: Pantoprazole Sodium (Protonix) 40 mg PO BID [facility] Last Admin: 11/23/19 08:33 Dose: 40 mg Documented by: Potassium Chloride (K-Dur) 60 meq PO X1 ONE Stop: 11/23/19 09:16 Sertraline HCl (Zoloft) 50 mg PO BID [facility] Last Admin: 11/23/19 08:35 Dose: 50 mg Documented by: Sodium Chloride () 10 - 40 ml IV UD PRN PRN Reason: Open End PICC Flush Last Admin: 11/21/19 21:20 Dose: 10 ml Documented by: Sodium Chloride (0.9% Nacl (Sterile) Posiflush) 10 - 40 ml IV UD PRN PRN Reason: Port access or dressing change Tolterodine Tartrate (Detrol La) 2 mg PO DAILY [facility] Last Admin: 11/23/19 08:33 Dose: 2 mg Documented by: Home Medications: Medications to take at Discharge Bupropion HCl 100 mg PO DAILY 05/02/14 Nitroglycerin (INPATIENT USE) [Nitrostat] 0.4 mg SUBLINGUAL Q5M PRN 07/17/14 Cholecalciferol (Vitamin D3) [Vitamin D3] 3,000 unit PO DAILY 05/08/18 Cyanocobalamin (Vitamin B-12) [Vitamin B-12] 1,000 mcg PO DAILY 05/08/18 Multivitamin with Minerals [Multiple Vitamin] 2 ea PO DAILY 05/08/18 Amiodarone HCl 400 mg PO DAILY 11/05/18 Sertraline HCl [Zoloft] 50 mg PO BID 11/05/18 carvedilol 12.5 mg tablet 6.25 mg PO BID tab 05/22/19 levothyroxine 25 mcg tablet 25 mcg PO DAILY 05/22/19 Docusate Sodium [Colace] 100 mg PO BID #0 cap 10/23/19 Acetaminophen [Tylenol Tablet] 650 mg PO Q4H PRN PRN tab 11/05/19 Diazepam [Valium] 5 mg PO 4X/DAY PRN PRN #30 tab 11/05/19 Ipratropium/Albuterol Sulfate [Duoneb] 3 ml INHALATION Q4H PRN ampul.neb 11/05/19 Nystatin Powder [Mycostatin Powder] 1 applic TOPICAL TID bottle 11/05/19 Multivit,Stress Formula/Zinc [Stress Formula with Zinc Tab] 1 ea PO DAILY 11/18/19 Ondansetron HCl [Zofran] 4 mg PO Q6H PRN 11/18/19 Pantoprazole Sodium [Protonix] 40 mg PO BID tab 11/23/19 Primary Care Physician: Mk Chicas MD [Primary Care Provider] - Please follow up with your Primary Care Physician in: 1 Week Please Follow Up With: Reyna Rodriges NP-C When: 3-5 Days Please Follow Up With: Tiffany Collado DO When: 2 Weeks Please Follow Up With: Lawrence Avery NP-C When: 12/16/2019 as scheduled Disposition: Shelter facility Minutes spent on discharge:: 35 Patient Condition:: Stable Medical Necessity - Tobacco Use Smoking Status: Never smoker Meaningful Use Info Meaningful Use Diagnoses (Choose all that apply): None applicable <Paintsil,Gridley - Last Filed: 11/23/19 12:09> Discharge Date and Diagnosis - Secondary Discharge Diagnosis Chronic Problems: Chronic Problems (Last Reviewed 07/19/19 @ 22:[address] Anthony Pisano MD) Morbid obesity (Chronic) Open wound, abdominal wall, lateral (Chronic) History of ventral hernia repair (Chronic) with mesh in last 2 years at [facility] Lumbar back pain (Chronic) from weight of massive abdominal panniculus Ventral hernia (Chronic) laparoscopic repair 2 years ago with mesh Lymphedema (Chronic) painful lymphedema lower abdominal wall Intertrigo (Chronic) abdominal wall skin crease intertrigo Recent weight loss (Chronic) about 100 lbs Panniculitis (Chronic) Abdominal panniculus, symptomatic (Chronic) Presence of implantable cardioverter-defibrillator (ICD) (Chronic) History of radiofrequency ablation (RFA) procedure for cardiac arrhythmia (Chronic) 2007 @ [facility] per Dr. Lange, 2009 @ [facility] for WPW with success. 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) Rotator cuff tear (Chronic) COPD (chronic obstructive pulmonary disease) (Chronic) Anxiety and depression (Chronic) History of DVT (deep vein thrombosis) (Chronic) Diastolic heart failure (Chronic) TEX (obstructive sleep apnea) (Chronic) Hyperlipidemia (Chronic) Benign essential hypertension (Chronic) Rheumatoid arthritis (Chronic) dilated right ventricle (Chronic) Cardiomyopathy (Chronic) Super obesity (Chronic) WPW (Nvcpo-Klluzvbgl-Snvyw syndrome) (Chronic) Atrial fibrillation (Chronic) Hospital Course and Treatment Consultations 11/18/19 06:26 Consult: Onc/Wound/setter automatic spinning lathe Routine Comment: Summary of Care Provided: This patient was seen in conjunction with Joyce Mattson NP. I have independently interviewed and examined the patient and reviewed pertinent historical, laboratory, and other data. Please refer to her note for patient's presentation, findings, and recommendations. 59-year-old male, resident in a long-term facility, recent history of abdominal wound status post wound VAC, on IV antibiotics comes in with altered mental status. He was found to be in acute kidney injury with hyperkalemia. He was admitted to ICU, and hyperkalemia treated. He was found to be hypotensive, and was aggressively resuscitated with IV fluids. Started on IV pressors. Work-up was negative for sepsis or cardiac etiology. Nephrology consulted. Patient was started on hemodialysis through temporary dialysis catheter. He was transfused with 1 unit of packed RBC when hemoglobin dropped to 7.1 on 11/20/19. His hemoglobin at discharge was 8.5. He also had elevated troponins which were felt to be related to demand ischemia/LARRY. Patient continued to improve and was transferred out of the ICU. His kidney function improved. His dialysis catheter was removed at discharge. His creatinine at discharge was 2.29. He was admitted with creatinine of 12.40. His previous creatinine was 2.62 on 11/05/19. On the day of discharge, patient was seen and examined. He denied any new complaint. He felt improved. Physical Exam: Gen: Morbidly obese, not pale, not jaundiced, alert oriented x3 CVS:HS I +II, regular, no murmurs RESP: Color clear to auscultation GI: Wound VAC/suction present, BS present and normal, nontender, no palpable organs EXT:No edema - Physical Exam Vitals/I&O's: Vital Signs Temp Pulse Resp BP Pulse Ox 98.3 F 70 18 127/70 H 97 11/23/19 11:45 11/23/19 11:45 11/23/19 11:45 11/23/19 11:45 11/23/19 11:45 Oxygen Flow Rate (L/min) 2 Oxygen Delivery Method Nasal Cannula Weight: 180 kg Body Mass Index (BMI) 63.1 Intake and Output for Last 24 Hours 11/21/19 11/22/19 11/23/19 23:59 23:59 23:59 Intake Total 1170 / 1170 225 / 225 460 / 460 Output Total 1330 / 1330 1750 / 1750 725 / 725 Balance -160 / -160 -1525 / -1525 -265 / -265 Microbiology Past 72 Hours 11/17/19 20:32 Blood Culture (Wb) - Pic Blood Culture - Final No growth in 5 days. 11/17/19 20:46 Blood Culture (Wb) - Anticubital Right Blood Culture - Final No growth in 5 days. 11/17/19 20:28 Urine Catheter - Catheter Urine Culture - Final Staphylococcus haemolyticus Laboratory Results 11/18/19 06:45: Crossmatch See Detail 11/23/19 04:45: WBC 7.9, RBC 2.50 L, Hgb 8.5 L, Hct 27.2 L, MCV 108.8 H, MCH 34.0 H, MCHC 31.3 L, RDW Std Deviation 63.4 H, RDW Coeff of Florina 16.1 H, Plt Count 199, MPV 9.5 11/23/19 04:45: Sodium 144, Potassium 3.3 L, Chloride 110 H, Carbon Dioxide 30.0, Anion Gap 4 L, BUN 57 H, Creatinine 2.29 H, Estim Creat Clear Calc 31.34, Est GFR (MDRD) Af Amer 38 L, Est GFR (MDRD) Non-Af 31 L, BUN/Creatinine Ratio 24.9 H, Glucose 85, Calcium 8.6 Current Medications Acetaminophen (Tylenol) 650 mg PO Q4H PRN PRN PRN Reason: fever, pain 1-01/02 Last Admin: 11/22/19 22:04 Dose: 650 mg Documented by: [facility]) [facility] Last Admin: 11/23/19 08:32 Dose: 400 mg Documented by: Bupropion HCl (Wellbutrin Tablets) 100 mg PO DAILY [facility] Last Admin: 11/23/19 08:35 Dose: 100 mg Documented by: Carvedilol (Coreg) 6.25 mg PO 0800,1200 [facility] Last Admin: 11/23/19 11:48 Dose: 6.25 mg Documented by: Cholecalciferol (Vitamin D (25mcg)) 3,000 unit PO DAILY [facility] Last Admin: 11/23/19 08:33 Dose: 3,000 unit Documented by: Cyanocobalamin (Vitamin B12) 1,000 mcg PO DAILY [facility] Last Admin: 11/23/19 08:34 Dose: 1,000 mcg Documented by: Diazepam (Valium) 5 mg PO 4X/DAY PRN PRN PRN Reason: SPASMS Last Admin: 11/19/19 05:26 Dose: 5 mg Documented by: Docusate Sodium (Colace) 100 mg PO BID [facility] Last Admin: 11/23/19 08:33 Dose: Not Given Documented by: Heparin Sodium (Beef Lung) () 50 units IV UD PRN PRN Reason: PICC Line Heparin Flush Heparin Sodium (Porcine) (Heparin Na) 5,000 unit SC Q8 [facility] Last Admin: 11/23/19 05:07 Dose: 5,000 unit Documented by: Levothyroxine Sodium (Synthroid) 25 mcg PO DAILY@0600 [facility] Last Admin: 11/23/19 05:07 Dose: 25 mcg Documented by: Multivitamins/Minerals (Multivitamin With Minerals (Bkc)) [facility] Last Admin: 11/23/19 08:32 Dose: 2 tablet Documented by: Pantoprazole Sodium (Protonix) 40 mg PO BID [facility] Last Admin: 11/23/19 08:33 Dose: 40 mg Documented by: Sertraline HCl (Zoloft) 50 mg PO BID [facility] Last Admin: 11/23/19 08:35 Dose: 50 mg Documented by: Sodium Chloride () 10 - 40 ml IV UD PRN PRN Reason: Open End PICC Flush Last Admin: 11/21/19 21:20 Dose: 10 ml Documented by: Sodium Chloride (0.9% Nacl (Sterile) Posiflush) 10 - 40 ml IV UD PRN PRN Reason: Port access or dressing change Tolterodine Tartrate (Detrol La) 2 mg PO DAILY [facility] Last Admin: 11/23/19 08:33 Dose: 2 mg Documented by: Inpatient E&M: [id number] Disch Hosp
--- NOTE | 2019-11-23 13:00 | PCA ---
Addendum entered by Rosa Sellers 11/23/19 14:17: Refaxed paperwork to [phone] per their request Addendum entered by Rosa Sellers 11/23/19 14:12: With permission from the pt notified ex- Brittni,[phone], of discharge and ETA of pickup Original Note: D/C paperwork faxed to [facility], .
== END 2019-11-23 17:27 | disposition skilled nursing facility (03) | DRG 862 ==
LOC: ED 20:13 → ICU 23:36 → PCU 11-21 14:26
PROVIDERS: Internal Medicine; Internal Medicine Critical Care Medicine; Internal Medicine Nephrology; Nurse Practitioner Family; Admitting Provider Family Medicine; Emergency Provider Emergency Medicine; PCP Family Medicine; Visit Provider Internal Medicine
DX: T81.41XA Infection following a procedure, superficial incisional surgical site, initial encounter (principal); A41.9 Sepsis, unspecified organism; G93.41 Metabolic encephalopathy; N17.0 Acute kidney failure with tubular necrosis; R65.21 Severe sepsis with septic shock; I50.32 Chronic diastolic (congestive) heart failure; I42.9 Cardiomyopathy, unspecified; I13.0 Hypertensive heart and chronic kidney disease with heart failure and stage 1 through stage 4 chronic kidney disease, or unspecified chronic kidney disease; E87.2 Acidosis; Z68.44 Body mass index [BMI] 60.0-69.9, adult; R63.0 Anorexia; I48.0 Paroxysmal atrial fibrillation; E03.9 Hypothyroidism, unspecified; D53.9 Nutritional anemia, unspecified; E87.5 Hyperkalemia; M79.3 Panniculitis, unspecified; I89.0 Lymphedema, not elsewhere classified; S31.109A Unspecified open wound of abdominal wall, unspecified quadrant without penetration into peritoneal cavity, initial encounter; J44.9 Chronic obstructive pulmonary disease, unspecified; F32.9 Major depressive disorder, single episode, unspecified; F41.9 Anxiety disorder, unspecified; M51.17 Intervertebral disc disorders with radiculopathy, lumbosacral region; E78.5 Hyperlipidemia, unspecified; I11.0 Hypertensive heart disease with heart failure; G47.33 Obstructive sleep apnea (adult) (pediatric); N18.3 Chronic kidney disease, stage 3 (moderate); Y83.9 Surgical procedure, unspecified as the cause of abnormal reaction of the patient, or of later complication, without mention of misadventure at the time of the procedure; Y82.9 Unspecified medical devices associated with adverse incidents; Z86.718 Personal history of other venous thrombosis and embolism; Z95.810 Presence of automatic (implantable) cardiac defibrillator; Z79.890 Hormone replacement therapy; Z74.01 Bed confinement status; M06.9 Rheumatoid arthritis, unspecified; L30.4 Erythema intertrigo; I45.6 Pre-excitation syndrome; E66.01 Morbid (severe) obesity due to excess calories; Z99.2 Dependence on renal dialysis; Z90.49 Acquired absence of other specified parts of digestive tract; Z82.49 Family history of ischemic heart disease and other diseases of the circulatory system; K43.9 Ventral hernia without obstruction or gangrene; M19.011 Primary osteoarthritis, right shoulder; M47.27 Other spondylosis with radiculopathy, lumbosacral region
CPT/HCPCS: 11042; 11045; 36415; 36592; 36600; 36620; 70450; 71045; 76770; 80048; 80053; 80069; 80202; 81001; 82274; 82570; 82803; 83605; 83880; 84300; 84443; 84484; 85025; 85027; 85610; 85730; 86704; 86706; 86850; 86900; 86901; 86920; 87040; 87077; 87086; 87088; 87186; 87340; 87635; 87641; 90937; 93005; 94799; 97110; 97116; 97162; 97166; 97530; 97535; 99285; J7030; J7040; J7050; J7120; P9016; P9612; A4216; C1752; G0257; J0610; J3490; U0003

== ENCOUNTER → 2019-12-18 11:55 | Outpatient (CLI) | payer MEDICARE, MEDICAID, SELFPAY ==
[2019-12-08 10:30] VITALS: BMI 63.1
[2019-12-18 12:47] LABS: Absolute Lymphocyte Count 0.81 X10^3/uL (0.83-4.51); Absolute Neutrophil Count 7.4 X10^3/uL (2.0-7.7); Basophil# 0.06 X10^3/uL; Basophil% 0.6 % (0-1); Eosinophil# 0.22 X10^3/uL; Eosinophils% 2.3 % (0-5); Hematocrit 37.6 % (40-54); Hemoglobin 11.5 g/dL (13.0-16.5); Lymphocyte # 0.81 X10^3/ul (4.0); Lymphocyte % 8.6 % (19-41); Mean Corp Hgb Conc 30.6 g/dL (32-36); Mean Corpuscular Hgb 34.1 pg (27.0-32.0); Mean Corpuscular Volume 111.6 fL (80-94); Mean Platelet Vol. 10.2 fl (6.2-12.0); Monocyte# 0.89 X10^3/uL; Monocyte% 9.4 % (0-10); NRBC Flagged by Analyzer 0 % (0-5); Neutrophil % 78.7 % (47-70); POSITIVE MORPHOLOGY YES; Platelet Count 320 K/mm3 (150-450); RBC Distribution Width CV 16.5 % (11.6-14.6); RBC Distribution Width SD 67.7 fl (35.1-43.9); Red Blood Count 3.37 M/mm3 (4.6-6.2); White Blood Count 9.4 K/mm3 (4.4-11.0)
[2019-12-18 13:09] LABS: Differential Comment SCANNED; Differential Indicated SCAN CRITERIA MET
[2019-12-18 13:10] LABS: Anisocytosis 1+; Macrocytosis 2+; Ovalocyte 2+; Polychromasia 1+
[2019-12-18 13:46] LABS: ALB/GLOB Ratio 0.7 RATIO (0.9-2.4); AST(SGOT) 16 U/L (15-37); Alanine Aminotransfer ALT/SGPT 19 U/L (16-61); Albumin, Serum 3.1 g/dL (3.2-5.0); Alkaline Phosphatase 200 U/L (45-117); Anion Gap 11 (5-15); BUN 17 mg/dL (7-18); BUN/Creat Ratio 14.5 RATIO (10-20); Calcium,Total 9.4 mg/dL (8.5-10.1); Chloride 108 mmol/L (98-107); Creatinine, Serum 1.17 mg/dL (0.70-1.30); EST Glomerular Filtration Rate 68 mL/min (>60); Est Glom Filt Rate - Afr Amer 82 mL/min (>60); Globulin 4.4 g/dL (2.2-4.2); Glucose 94 mg/dL (74-106); Potassium 3.8 mmol/L (3.5-5.1); Protein, Total 7.5 g/dL (6.4-8.2); Sodium Level 141 mmol/L (136-145); Thyroid Stim Hormone (TSH) 2.43 uIU/mL (0.358-3.74)
== END ==
PROVIDERS: PCP Family Medicine Geriatric Medicine; Visit Provider Family Medicine Geriatric Medicine
DX: I10 Essential (primary) hypertension (principal); E23.6 Other disorders of pituitary gland
CPT/HCPCS: 36415; 80053; 84403; 84443; 85025

== ENCOUNTER 2019-12-22 11:30 | Outpatient (RCR) | payer MEDICARE, MEDICAID, SELFPAY ==
[2019-11-17 23:54] VITALS: BMI 63.1
[2019-11-25 00:19] VITALS: BP 93/62; PULSE 110; RESP 20; TEMP 36.9
[2019-12-08 10:30] VITALS: BP 91/50; PULSE 60; RESP 16; TEMP 35.8; BMI 63.1
--- NOTE | 2019-12-08 13:06 | PCM.WC.PN ---
Type of Wound Date of Service: 12/08/19 Chief Complaint: Nonhealing ulcer right abdominal wall. History of Wound: Surgery 10/21/19 - 1. Surgical preparation right abdominal wall with excisional debridement skin, subcutaneous tissue, and fascia necrotizing soft tissue infection (731 cm2). 2. Abdominal panniculectomy. Wound care - VAC. Operative cultures - negative. He was discharged on Cefadroxil and finished them. Patient was having with issues with copious amounts of drainage and difficulty dealing with the wound at home. He was admitted on 11/03/19. Wound cultures from 11/03/19 were positive for Enterobacter cloacae, Enterococcus falcalis and Proteus mirabilis. He was placed on IV Zosyn and Vancomycin. He was discharged on 11/05/19 to [facility] and continued Zosyn through a PICC line and has finished them. The PICC line was pulled. The wound care was continued with the VAC. Prealbumin from 11/03/19 was 14.9. Encourage nutritional supplementation with protein to help the healing process. Today he denies fevers and states his appetite is ok. Progress of Wound: Improved. - Physical Exam Vital Signs Temp Pulse Resp BP 96.5 F L 60 16 91/50 L 12/08/19 10:30 12/08/19 10:30 12/08/19 10:30 12/08/19 10:30 Wound Measurements and Assessment WC - Nurse 1 - General Ulcer Measurement Start: 12/08/19 10:30 Freq: Status: Active Protocol: Activity Type Activity Date Activity User E-Sign Co-Sign Detail Recorded Client Recorded Date Recorded By Document 12/08/19 10:30 [facility] [id number] 12/08/19 10:40 [facility] 12/08/19 10:30 Wound Center Nurse 1 [Ulcer Assessment] #1 lower abd post op -Combined with other wound No -Current Size (cm) - Length 42.2 -Current Size (cm) - Width 3.3 -Current Size (cm) - Depth 3.2 -Total Square Cm 139.26 -Photo Taken No -Epithelialization Small 1-33% -Tunneling No -Undermining/Tunneling No -Circular Undermining No -Exudate Amt Large -Exudate Type Yellow/Green -Wound Margin Distinct, Outline Attached -Granulation Amt Large (67-100%) -Granulation Quality Red -Slough/Fibrin Yes -Necrosis Amt Small (1-33%) -Necrotic Tissue Type Adherent Slough -Texture (Julia-wound Skin Appearance) Assessed, Scarring -Moisture (Julia-wound Skin Appearance Assessed ) -Color (Julia-wound Skin Appearance) Assessed -Temperature (Julia-wound Skin No Abnormality Appearance) (Pt Warm) -Tenderness on Palpation (Julia-wound No Skin Appearance) -Ulcer Cleansing soapy water -Foul Odor after Cleansing No -Anesthetic Used 4% Lidocaine Solution SHALINI - Nurse 2 - General Ulcer CM Notes Start: 12/08/19 10:30 Freq: Status: Active Protocol: Activity Type Activity Date Activity User E-Sign Co-Sign Detail Recorded Client Recorded Date Recorded By Document 12/08/19 10:59 [id number] 12/08/19 11:11 12/08/19 10:59 Wound Center Nurse 2 [Procedure/Treatment] -Time 11:02 -Correct Patient Yes -Correct Side, Site, Position Yes -Correct Procedure Yes -Procedure Performed Yes -Type of Procedure Debridement -Clinical Debridement Subcutaneous -Tissue Removed Subcutaneous -Post Debridement (cm) - Length 6.5 -Post Debridement (cm) - Width 46.0 -Post Debridement (cm) - Depth 6.2 -Total Square (Post) (cm) 299.00 -Area of Debridement (cm) - Length 6.5 -Area of Debridement (cm) - Width 46.0 -Total Square (Area) (cm) 299.00 -Tunneling No -Undermining/Tunneling No -Circular Undermining No -Wound/Ulcer Outcome Not Healed -Ulcer Cleansing Rinsed/ Irrigated with Saline -Foul Odor after Cleansing No -Bioengineered Tissue No -Bleeding Controlled with Pressure,Silver Nitrate -Offloading No -Treatment Response Procedure Tolerated Well -Debridement - Subq, 1st 20sq cm Yes -Debridement, SubQ, ea addt'l 20sq cm 11 or part thereof [See Physician Procedure note for Specifics] Pain Scale: 0-10 Numeric [Pain] -Is Patient Pain Free? Yes SHALINI - Nurse 3 - General Ulcer D/C NN Start: 12/08/19 10:30 Freq: Status: Active Protocol: Activity Type Activity Date Activity User E-Sign Co-Sign Detail Recorded Client Recorded Date Recorded By Document 12/08/19 11:27 [facility] [id number] 12/08/19 11:27 [facility] 12/08/19 11:27 Wound Care Nurse 3 [Wound Dressing] #1 lower abd post op -Ulcer Cleansing Rinsed/ Irrigated with Saline -Foul Odor after Cleansing No -Primary Dressing Applied Other -Other Dressing MOIST TO DRY GAUZE DRSG -Primary Dressing Covered/Secured Secured with with Tape -Other Covering PT DID NOT BRING VAC SUPPLIES. ECF TO REAPPLY [Post Procedure Tolerated] -Treatment Response Procedure Tolerated Well Pain Scale: 0-10 Numeric [Pain] -Is Patient Pain Free? Yes - Visit Discharge [Visit Discharge Information] -Discharge Condition Stable -Ambulatory Status Stretcher -Transportation Ambulance [Facility Notification] -[facility]ility [facility] Debridement Note Post-Debridement Measurements/Treatment - Nurse 2 - General Ulcer CM Notes Start: 12/08/19 10:30 Freq: Status: Active Protocol: Activity Type Activity Date Activity User E-Sign Co-Sign Detail Recorded Client Recorded Date Recorded By Document 12/08/19 10:59 [id number] 12/08/19 11:11 12/08/19 10:59 Wound Center Nurse 2 #1 right abdominal wall postop -Time 11:02 -Correct Patient Yes -Correct Side, Site, Position Yes -Correct Procedure Yes -Procedure Performed Yes -Type of Procedure Debridement -Clinical Debridement Subcutaneous -Tissue Removed Subcutaneous -Post Debridement (cm) - Length 6.5 -Post Debridement (cm) - Width 46.0 -Post Debridement (cm) - Depth 6.2 -Total Square (Post) (cm) 299.00 -Area of Debridement (cm) - Length 6.5 -Area of Debridement (cm) - Width 46.0 -Total Square (Area) (cm) 299.00 -Tunneling No -Undermining/Tunneling No -Circular Undermining No -Wound/Ulcer Outcome Not Healed -Ulcer Cleansing Rinsed/ Irrigated with Saline -Foul Odor after Cleansing No -Bioengineered Tissue No -Bleeding Controlled with Pressure,Silver Nitrate -Offloading No -Treatment Response Procedure Tolerated Well -Debridement - Subq, 1st 20sq cm Yes -Debridement, SubQ, ea addt'l 20sq cm 11 or part thereof Pain Scale: 0-10 Numeric Is Patient Pain Free? Yes - Nurse 3 - General Ulcer D/C NN Start: 12/08/19 10:30 Freq: Status: Active Protocol: Activity Type Activity Date Activity User E-Sign Co-Sign Detail Recorded Client Recorded Date Recorded By Document 12/08/19 11:27 [facility] [id number] 12/08/19 11:27 [facility] 12/08/19 11:27 Wound Care Nurse 3 #1 lower abd post op -Ulcer Cleansing Rinsed/ Irrigated with Saline -Foul Odor after Cleansing No -Primary Dressing Applied Other -Other Dressing MOIST TO DRY GAUZE DRSG -Primary Dressing Covered/Secured with Secured with Tape -Other Covering PT DID NOT BRING VAC SUPPLIES. ECF TO REAPPLY Treatment Response Procedure Tolerated Well Pain Scale: 0-10 Numeric Is Patient Pain Free? Yes WC - Visit Discharge Discharge Condition Stable Ambulatory Status Stretcher Transportation Ambulance Facility Type [facility] Wound debrided: #1 Right abdominal wall. Laterality: Right Wound Grade/Stage: 2. Type of Debridement: Excisional debridement Anesthesia Used: 4% Lidocaine Solution Depth: Down to and including healthy tissue, in the subcutaneous layer Percentage of wound debrided: 100 Instrument Used: 7mm curette Tissue Removed: subcutaneous tissue. Severity: Fat Layer Exposed Amount of bleeding with debridement: Mild Bleeding Controlled with: Pressure, Silver Nitrate Patient tolerated procedure well Assessment/Plan Assessment: 1. Massive abdominal panniculus with panniculitis. 2. Necrotizing soft tissue infection. 3. Nonhealing ulcer right abdominal wall. 4. Recent weight loss. 5. Abdominal wall skin crease intertrigo. 6. Painful lymphedema lower abdominal wall. 7. Lumbar back pain. 8. History of laparoscopic ventral hernia repair with mesh. 9. History of DVT. 10. s/p surgical preparation right abdominal wall with excisional debridement skin, subcutaneous tissue, and fascia necrotizing soft tissue infection (731 cm2) and abdominal panniculectomy. Plan: Continue the VAC at 150 mmHg continuous suction to be changed three times per week. He has finished the Zosyn for cultures on 11/03/19 that showed Enterobacter cloacae, Enterococcus faecalis, and Proteus mirabilis. His Prealbumin from 11/03/19 was 14.9. Encourage nutritional supplementation with protein to help the healing process. Followup 2 weeks. [id number]: [id number] Global Visit - ICD-10 - Z48.89, E65, M79.3, M79.89, L98.492, R63.4, L30.4, I89.0, M54.5, Z98.890, Z86.718
[2019-12-22 11:15] VITALS: BP 90/53; PULSE 69; RESP 20; TEMP 35.9; BMI 63.1
[2019-12-22 12:13] VITALS: BP 92/69; PULSE 79; RESP 18
--- NOTE | 2019-12-22 17:25 | PCM.WC.PN ---
Type of Wound Date of Service: 12/22/19 Chief Complaint: Nonhealing ulcer right abdominal wall. History of Wound: Surgery 10/21/19 - 1. Surgical preparation right abdominal wall with excisional debridement skin, subcutaneous tissue, and fascia necrotizing soft tissue infection (731 cm2). 2. Abdominal panniculectomy. Wound care - VAC. Operative cultures - negative. He was discharged on Cefadroxil and finished them. Patient was having with issues with copious amounts of drainage and difficulty dealing with the wound at home. He was admitted on 11/03/19. Wound cultures from 11/03/19 were positive for Enterobacter cloacae, Enterococcus falcalis and Proteus mirabilis. He was placed on IV Zosyn and Vancomycin. He was discharged on 11/05/19 to [facility] and continued Zosyn through a PICC line and has finished them. The PICC line was pulled. The wound care was continued with the VAC. Prealbumin from 11/03/19 was 14.9. Encourage nutritional supplementation with protein to help the healing process. Today he denies fevers and states his appetite is ok. Progress of Wound: Improved. - Physical Exam Vital Signs Temp Pulse Resp BP 96.6 F L 79 18 92/69 12/22/19 11:15 12/22/19 12:13 12/22/19 12:13 12/22/19 12:13 Wound Measurements and Assessment WC - Nurse 1 - General Ulcer Measurement Start: 12/08/19 10:30 Freq: Status: Active Protocol: Activity Type Activity Date Activity User E-Sign Co-Sign Detail Recorded Client Recorded Date Recorded By Document 12/22/19 11:15 [facility] [id number] 12/22/19 11:18 [facility] 12/22/19 11:15 Wound Center Nurse 1 [Ulcer Assessment] #1 lower abd post op -Combined with other wound No -Current Size (cm) - Length 2.6 -Current Size (cm) - Width 31 -Current Size (cm) - Depth 2.7 -Total Square Cm 80.6 -Photo Taken No -Epithelialization Medium 34-66% -Tunneling No -Undermining/Tunneling No -Exudate Amt Large -Exudate Type Serosanguineous -Wound Margin Distinct, Outline Attached -Granulation Amt Large (67-100%) -Granulation Quality Red -Slough/Fibrin Yes -Necrosis Amt Small (1-33%) -Necrotic Tissue Type Adherent Slough -Texture (Julia-wound Skin Appearance) Assessed, Scarring -Moisture (Julia-wound Skin Appearance Assessed ) -Color (Julia-wound Skin Appearance) Assessed -Temperature (Julia-wound Skin No Abnormality Appearance) (Pt Warm) -Tenderness on Palpation (Julia-wound No Skin Appearance) -Ulcer Cleansing SOAPY -Foul Odor after Cleansing No -Anesthetic Used 4% Lidocaine Solution SHALINI - Nurse 2 - General Ulcer CM Notes Start: 12/08/19 10:30 Freq: Status: Active Protocol: Activity Type Activity Date Activity User E-Sign Co-Sign Detail Recorded Client Recorded Date Recorded By Document 12/22/19 11:57 [id number] 12/22/19 12:05 12/22/19 11:57 Wound Center Nurse 2 [Procedure/Treatment] -Time 11:58 -Correct Patient Yes -Correct Side, Site, Position Yes -Correct Procedure Yes -Procedure Performed Yes -Type of Procedure Debridement -Clinical Debridement Subcutaneous -Tissue Removed Subcutaneous -Post Debridement (cm) - Length 2.6 -Post Debridement (cm) - Width 31.1 -Post Debridement (cm) - Depth 0.2 -Total Square (Post) (cm) 80.86 -Area of Debridement (cm) - Length 2.6 -Area of Debridement (cm) - Width 31.1 -Total Square (Area) (cm) 80.86 -Tunneling No -Undermining/Tunneling No -Circular Undermining No -Wound/Ulcer Outcome Not Healed -Ulcer Cleansing Rinsed/ Irrigated with Saline -Foul Odor after Cleansing No -Bioengineered Tissue No -Bleeding Controlled with Pressure -Offloading No -Treatment Response Procedure Tolerated Well -Debridement - Subq, 1st 20sq cm Yes -Debridement, SubQ, ea addt'l 20sq cm 4 or part thereof [See Physician Procedure note for Specifics] Pain Scale: 0-10 Numeric [Pain] -Is Patient Pain Free? Yes SHALINI - Nurse 3 - General Ulcer D/C NN Start: 12/08/19 10:30 Freq: Status: Active Protocol: Activity Type Activity Date Activity User E-Sign Co-Sign Detail Recorded Client Recorded Date Recorded By Document 12/22/19 12:13 [facility] [id number] 12/22/19 12:14 [facility] 12/22/19 12:13 Wound Care Nurse 3 [Wound Dressing] #1 lower abd post op -Ulcer Cleansing Rinsed/ Irrigated with Saline -Foul Odor after Cleansing No -Primary Dressing Applied Other -Other Dressing moist to dry drsg per d maribel milking machine technician -Primary Dressing Covered/Secured Secured with with Tape,Other -Other Covering abd [Post Procedure Tolerated] -Treatment Response Procedure Tolerated Well Vital Signs [Pulse] -Pulse Rate (60-100) 79 -Pulse Location Monitor [Respirations] -Respiratory Rate (12-18) 18 -Respiratory rate source Observation -Oxygen Delivery Method Room Air [Blood Pressure] -Blood Pressure (90/60-120/80) 92/69 -Blood Pressure Mean (mm Hg) 76 -Source Monitor -Position Sitting -Blood Pressure Location Right Forearm Pain Scale: 0-10 Numeric [Pain] -Is Patient Pain Free? Yes WC - Visit Discharge [Visit Discharge Information] -Discharge Condition Stable -Ambulatory Status Ambulatory, Walker, Wheelchair -Transportation [place] [Facility Notification] -Facility Type Home Health Debridement Note Post-Debridement Measurements/Treatment WC - Nurse 2 - General Ulcer CM Notes Start: 12/08/19 10:30 Freq: Status: Active Protocol: Activity Type Activity Date Activity User E-Sign Co-Sign Detail Recorded Client Recorded Date Recorded By Document 12/08/19 10:59 [id number] 12/08/19 11:11 Document 12/22/19 11:57 [id number] 12/22/19 12:05 12/08/19 12/22/19 10:59 11:57 Wound Center Nurse 2 #1 lower abd post op -Time 11:02 11:58 -Correct Patient Yes Yes -Correct Side, Site, Position Yes Yes -Correct Procedure Yes Yes -Procedure Performed Yes Yes -Type of Procedure Debridement Debridement -Clinical Debridement Subcutaneous Subcutaneous -Tissue Removed Subcutaneous Subcutaneous -Post Debridement (cm) - Length 6.5 2.6 -Post Debridement (cm) - Width 46.0 31.1 -Post Debridement (cm) - Depth 6.2 0.2 -Total Square (Post) (cm) 299.00 80.86 -Area of Debridement (cm) - Length 6.5 2.6 -Area of Debridement (cm) - Width 46.0 31.1 -Total Square (Area) (cm) 299.00 80.86 -Tunneling No No -Undermining/Tunneling No No -Circular Undermining No No -Wound/Ulcer Outcome Not Healed Not Healed -Ulcer Cleansing Rinsed/ Rinsed/ Irrigated with Irrigated with Saline Saline -Foul Odor after Cleansing No No -Bioengineered Tissue No No -Bleeding Controlled with Pressure,Silver Pressure Nitrate -Offloading No No -Treatment Response Procedure Procedure Tolerated Well Tolerated Well -Debridement - Subq, 1st 20sq cm Yes Yes -Debridement, SubQ, ea addt'l 20sq cm 11 4 or part thereof Pain Scale: 0-10 Numeric Is Patient Pain Free? Yes Yes - Nurse 3 - General Ulcer D/C NN Start: 12/08/19 10:30 Freq: Status: Active Protocol: Activity Type Activity Date Activity User E-Sign Co-Sign Detail Recorded Client Recorded Date Recorded By Document 12/08/19 11:27 [facility] [id number] 12/08/19 11:27 [facility] Document 12/22/19 12:13 [facility] [id number] 12/22/19 12:14 [facility] 12/08/19 12/22/19 11:27 12:13 Wound Care Nurse 3 #1 lower abd post op -Ulcer Cleansing Rinsed/ Rinsed/ Irrigated with Irrigated with Saline Saline -Foul Odor after Cleansing No No -Primary Dressing Applied Other Other -Other Dressing MOIST TO DRY moist to dry GAUZE DRSG drsg per piotr lópez milking machine technician -Primary Dressing Covered/Secured with Secured with Secured with Tape Tape,Other -Other Covering PT DID NOT abd BRING VAC SUPPLIES. ECF TO REAPPLY Treatment Response Procedure Procedure Tolerated Well Tolerated Well Pain Scale: 0-10 Numeric Is Patient Pain Free? Yes Yes Vital Signs Pulse Rate (60-100) 79 Pulse Location Monitor Respiratory Rate (12-18) 18 Respiratory rate source Observation Oxygen Delivery Method Room Air Blood Pressure (90/60-120/80) 92/69 Blood Pressure Mean (mm Hg) 76 Source Monitor Position Sitting Blood Pressure Location Right Forearm - Visit Discharge Discharge Condition Stable Stable Ambulatory Status Stretcher Ambulatory, Walker, Wheelchair Transportation Ambulance [facility] Wound debrided: #1 Right abdominal wall. Laterality: Right Wound Grade/Stage: 2. Type of Debridement: Excisional debridement Anesthesia Used: 4% Lidocaine Solution Depth: Down to and including healthy tissue, in the subcutaneous layer Percentage of wound debrided: 100 Instrument Used: 5mm curette Tissue Removed: subcutaneous tissue. Severity: Fat Layer Exposed Amount of bleeding with debridement: Mild Bleeding Controlled with: Pressure Patient tolerated procedure well Assessment/Plan Assessment: 1. Massive abdominal panniculus with panniculitis. 2. Necrotizing soft tissue infection. 3. Nonhealing ulcer right abdominal wall. 4. Recent weight loss. 5. Abdominal wall skin crease intertrigo. 6. Painful lymphedema lower abdominal wall. 7. Lumbar back pain. 8. History of laparoscopic ventral hernia repair with mesh. 9. History of DVT. 10. s/p surgical preparation right abdominal wall with excisional debridement skin, subcutaneous tissue, and fascia necrotizing soft tissue infection (731 cm2) and abdominal panniculectomy. Plan: Stop the VAC. Begin Dakin's dressing changes daily. He has finished the Zosyn for cultures on 11/03/19 that showed Enterobacter cloacae, Enterococcus faecalis, and Proteus mirabilis. His Prealbumin from 11/03/19 was 14.9. Encourage nutritional supplementation with protein to help the healing process. Will consider more abdominal wall surgery for his massive abdominal panniculus in 3 months, after the first of the year. Followup 2 weeks. 111xxx-113xx: [id number] Global Visit - ICD-10 - Z48.89, E65, M79.3, M79.89, L98.492, R63.4, L30.4, I89.0, M54.5, Z98.890, Z86.718
== END 2019-12-24 23:59 ==
LOC: WC 11:30
PROVIDERS: PCP Family Medicine; Visit Provider Surgery
DX: M79.3 Panniculitis, unspecified (principal); R63.4 Abnormal weight loss; L30.4 Erythema intertrigo; I89.0 Lymphedema, not elsewhere classified; M54.5 Low back pain; L98.492 Non-pressure chronic ulcer of skin of other sites with fat layer exposed; Z86.718 Personal history of other venous thrombosis and embolism
CPT/HCPCS: 11042; 11045

== ENCOUNTER 2020-01-19 10:00 | Outpatient (RCR) | payer MEDICARE, MEDICAID, SELFPAY ==
[2019-12-25 00:22] VITALS: BP 92/69; PULSE 79; RESP 18; TEMP 35.9
[2020-01-05 09:20] VITALS: BP 104/63; PULSE 101; RESP 16; TEMP 36.3; BMI 63.1
--- NOTE | 2020-01-05 12:55 | PN.PCM_ITS ---
(1) Ulcer of abdomen wall with fat layer exposed Status: Chronic Current Visit: Yes Code(s): L98.492 - Non-pressure chronic ulcer of skin of other sites with fat layer exposed (2) Encounter for other specified surgical aftercare Status: Chronic Current Visit: Yes Code(s): Z48.89 - Encounter for other specified surgical aftercare (3) Intertrigo Status: Chronic Current Visit: Yes Code(s): L30.4 - Erythema intertrigo Comment: abdominal wall skin crease intertrigo (4) Panniculitis Status: Chronic Current Visit: Yes Code(s): M79.3 - Panniculitis, unspecified (5) Abdominal panniculus, symptomatic Status: Chronic Current Visit: Yes Code(s): E65 - Localized adiposity (6) History of DVT (deep vein thrombosis) Status: Chronic Current Visit: No Code(s): Z86.718 - Personal history of other venous thrombosis and embolism Type of Wound Date of Service: 01/05/20 Chief Complaint: Nonhealing ulcer right abdominal wall. History of Wound: Surgery 10/21/19 - 1. Surgical preparation right abdominal wall with excisional debridement skin, subcutaneous tissue, and fascia necrotizing soft tissue infection (731 cm2). 2. Abdominal panniculectomy. Wound care was initially wound VAC. He is now using Dakin's dressing changes daily. Operative cultures - negative. He was discharged on Cefadroxil and finished them. Patient was having with issues with copious amounts of drainage and difficulty dealing with the wound at home. He was admitted on 11/03/19. Wound cultures from 11/03/19 were positive for Enterobacter cloacae, Enterococcus falcalis and Proteus mirabilis. He was placed on IV Zosyn and Vancomycin. He was discharged on 11/05/19 to [facility] and continued Zosyn through a PICC line and has finished them. The PICC line was pulled. The wound care was continued with the VAC. Prealbumin from 11/03/19 was 14.9. Encourage nutritional supplementation with protein to help the healing process. Today he denies fevers and states his appetite is ok. Progress of Wound: The abdominal ulcer is improved in size and appearance. The patient denies any fever, chills, nausea, vomiting, or diarrhea. Denies any increasing pain, swelling, or purulent drainage from affected area. He does note worsening redness surrounding his abdominal ulcer, accompanied by severe itching. A similar rash is also present under his left axilla and left sided pannicular folds. He reports using nystatin powder daily to his skin folds, but does note copious amounts of sweating and difficulty with wicking away moisture from his skin folds. He has been using a pillowcase between his skin folds. - Physical Exam Vital Signs Temp Pulse Resp BP 97.4 F L 101 H 16 104/63 01/05/20 09:20 01/05/20 09:20 01/05/20 09:20 01/05/20 09:20 General: Alert, Cooperative, No apparent distress HEENT: Atraumatic, Normocephalic Oral: Moist Mucosa Neck: Supple Lungs: Normal air movement Abdomen: Soft, Obese Extremities: Capillary Refill Less than 3 Seconds Skin: Ulcer/ Wound - Abdominal ulcer with subcutaneous layer exposed. Good g ranulation tissue is present. There is no tunneling, undermining, or probing to bone. There is aravind-ulcer warmth and erythema, which I suspect is due to intertrigo. There is no purulent/malodorous drainage., Rash Present - Erythematous rash with scattered, tiny pustules along the pannicular folds and left axilla. The rash is warm to palpation. Wound Measurements and Assessment WC - Nurse 1 - General Ulcer Measurement Start: 01/05/20 09:20 Freq: Status: Active Protocol: Activity Type Activity Date Activity User E-Sign Co-Sign Detail Recorded Client Recorded Date Recorded By Document 01/05/20 09:20 [id number] 01/05/20 09:21 NED 01/05/20 09:20 Wound Center Nurse 1 [Ulcer Assessment] #1 lower abd post op -Combined with other wound No -Current Size (cm) - Length 2.2 -Current Size (cm) - Width 32.0 -Current Size (cm) - Depth 0.2 -Total Square Cm 70.40 -Photo Taken No -Epithelialization Medium 34-66% -Tunneling No -Undermining/Tunneling No -Circular Undermining No -Exudate Amt Large -Exudate Type Serosanguineous -Wound Margin Flat & Intact -Granulation Amt Large (67-100%) -Granulation Quality Red -Slough/Fibrin Yes -Necrosis Amt Small (1-33%) -Necrotic Tissue Type Adherent Slough -Structure Exposed N/A -Texture (Aravind-wound Skin Appearance) Assessed, Excoriation, Friable -Moisture (Aravind-wound Skin Appearance Assessed, ) Maceration, Weeping -Color (Aravind-wound Skin Appearance) Assessed -Temperature (Aravind-wound Skin No Abnormality Appearance) (Pt Warm) -Tenderness on Palpation (Aravind-wound No Skin Appearance) -Ulcer Cleansing Wound Cleanser -Foul Odor after Cleansing No -Anesthetic Used 4% Lidocaine Solution [Edema Assessment] -Lower Limb Edema Present NA WC - Nurse 2 - General Ulcer CM Notes Start: 01/05/20 09:20 Freq: Status: Active Protocol: Activity Type Activity Date Activity User E-Sign Co-Sign Detail Recorded Client Recorded Date Recorded By Document 01/05/20 09:54 NED [id number] 01/05/20 09:57 NED 01/05/20 09:54 Wound Center Nurse 2 [Procedure/Treatment] #1 lower abd post op -Correct Patient Yes -Correct Side, Site, Position Yes -Correct Procedure Yes -Procedure Performed Yes -Type of Procedure Debridement -Clinical Debridement Subcutaneous -Tissue Removed Subcutaneous -Post Debridement (cm) - Length 2.3 -Post Debridement (cm) - Width 32.1 -Post Debridement (cm) - Depth 0.2 -Total Square (Post) (cm) 73.83 -Area of Debridement (cm) - Length 2.3 -Area of Debridement (cm) - Width 32.1 -Total Square (Area) (cm) 73.83 -Tunneling No -Undermining/Tunneling No -Circular Undermining No -Wound/Ulcer Outcome Not Healed -Ulcer Cleansing Rinsed/ Irrigated with Saline -Foul Odor after Cleansing No -Bioengineered Tissue No -Bleeding Controlled with Pressure -Offloading No -Debridement - Subq, 1st 20sq cm Yes -Debridement, SubQ, ea addt'l 20sq cm 3 or part thereof [See Physician Procedure note for Specifics] Pain Scale: 0-10 Numeric [Pain] -Is Patient Pain Free? Yes Psych/Mental Status: Normal Affect, Appropriate Debridement Note Post-Debridement Measurements/Treatment - Nurse 2 - General Ulcer CM Notes Start: 01/05/20 09:20 Freq: Status: Active Protocol: Activity Type Activity Date Activity User E-Sign Co-Sign Detail Recorded Client Recorded Date Recorded By Document 01/05/20 09:54 NED [id number] 01/05/20 09:57 NED 01/05/20 09:54 Wound Center Nurse 2 #1 lower abd post op -Correct Patient Yes -Correct Side, Site, Position Yes -Correct Procedure Yes -Procedure Performed Yes -Type of Procedure Debridement -Clinical Debridement Subcutaneous -Tissue Removed Subcutaneous -Post Debridement (cm) - Length 2.3 -Post Debridement (cm) - Width 32.1 -Post Debridement (cm) - Depth 0.2 -Total Square (Post) (cm) 73.83 -Area of Debridement (cm) - Length 2.3 -Area of Debridement (cm) - Width 32.1 -Total Square (Area) (cm) 73.83 -Tunneling No -Undermining/Tunneling No -Circular Undermining No -Wound/Ulcer Outcome Not Healed -Ulcer Cleansing Rinsed/ Irrigated with Saline -Foul Odor after Cleansing No -Bioengineered Tissue No -Bleeding Controlled with Pressure -Offloading No -Debridement - Subq, 1st 20sq cm Yes -Debridement, SubQ, ea addt'l 20sq cm 3 or part thereof Pain Scale: 0-10 Numeric Is Patient Pain Free? Yes Wound debrided: Abdominal wall Laterality: Right Type of Debridement: Excisional debridement Anesthesia Used: 4% Lidocaine Solution Depth: in the subcutaneous layer Percentage of wound debrided: 100 Instrument Used: 5mm curette Tissue Removed: Slough and devitalized tissue Severity: Fat Layer Exposed Amount of bleeding with debridement: Mild Bleeding Controlled with: Pressure Patient tolerated procedure well Assessment/Plan Active Problems (Last Reviewed 07/19/19 @ 22:[address] Anthony Pisano MD) Encounter for other specified surgical aftercare (Chronic) Ulcer of abdomen wall with fat layer exposed (Chronic) Intertrigo (Chronic) abdominal wall skin crease intertrigo Panniculitis (Chronic) Abdominal panniculus, symptomatic (Chronic) Assessment: 1. Massive abdominal panniculus with panniculitis. 2. Necrotizing soft tissue infection. 3. Nonhealing ulcer right abdominal wall. 4. Recent weight loss. 5. Abdominal wall skin crease intertrigo. 6. Painful lymphedema lower abdominal wall. 7. Lumbar back pain. 8. History of laparoscopic ventral hernia repair with mesh. 9. History of DVT. 10. s/p surgical preparation right abdominal wall with excisional debridement skin, subcutaneous tissue, and fascia necrotizing soft tissue infection (731 cm2) and abdominal panniculectomy. Plan: Continue with Dakin's dressing changes daily. We will look into ordering inter-dry for moisture management between skin folds. In the meantime, the patient was advised to keep skin folds clean and dry using a clean towel or pillowcase. Due to his worsening intertrigo, I will have him start terbinafine HCl 1% topical cream twice daily to the affected areas of his pannicular folds and left axilla. This will be continued for up to 4 weeks. He was advised not to use this in his ulcer. Wound cultures were collected today to rule out infection as a cause of the worsening aravind-ulcer warmth and erythema. [facility] that showed Enterobacter cloacae, Enterococcus faecalis, and Proteus mirabilis. His Prealbumin from 11/03/19 was 14.9. Encourage nutritional supplementation with protein to help the healing process. Will consider more abdominal wall surgery for his massive abdominal panniculus in 3 months, after the first of the year. Follow-up in 2 weeks for reevaluation. Follow-up sooner should new or concerning symptoms arise, or present symptoms worsen. Note: [employer] speech recognition sidehand software was used to create portions of this document. Sound-alike and misspelled words, as well as other sidehand errors may be contained in the documentation. [id number]: [id number] Global Visit
[2020-01-19 09:54] VITALS: RESP 18; TEMP 36.1; BMI 63.1
--- NOTE | 2020-01-21 14:05 | PN.PCM_ITS ---
(1) Ulcer of abdomen wall with fat layer exposed Status: Chronic Code(s): L98.492 - Non-pressure chronic ulcer of skin of other sites with fat layer exposed (2) Encounter for other specified surgical aftercare Status: Chronic Code(s): Z48.89 - Encounter for other specified surgical aftercare (3) Intertrigo Status: Chronic Code(s): L30.4 - Erythema intertrigo Comment: abdominal wall skin crease intertrigo (4) Panniculitis Status: Chronic Code(s): M79.3 - Panniculitis, unspecified (5) Abdominal panniculus, symptomatic Status: Chronic Code(s): E65 - Localized adiposity (6) History of DVT (deep vein thrombosis) Status: Chronic Code(s): Z86.718 - Personal history of other venous thrombosis and embolism Type of Wound Date of Service: 01/21/20 Chief Complaint: Nonhealing ulcer right abdominal wall. History of Wound: Surgery 10/21/19 - 1. Surgical preparation right abdominal wall with excisional debridement skin, subcutaneous tissue, and fascia necrotizing soft tissue infection (731 cm2). 2. Abdominal panniculectomy. Wound care was initially wound VAC. He is now using Dakin's dressing changes daily. Operative cultures - negative. He was discharged on Cefadroxil and finished them. Patient was having with issues with copious amounts of drainage and difficulty dealing with the wound at home. He was admitted on 11/03/19. Wound cultures from 11/03/19 were positive for Enterobacter cloacae, Enterococcus falcalis and Proteus mirabilis. He was placed on IV Zosyn and Vancomycin. He was discharged on 11/05/19 to [facility] and continued Zosyn through a PICC line and has finished them. The PICC line was pulled. The wound care was con tinued with the VAC. Prealbumin from 11/03/19 was 14.9. Encourage nutritional supplementation with protein to help the healing process. Today he denies fevers and states his appetite is ok. Progress of Wound: The abdominal ulcer is improved in size and appearance. The patient denies any fever, chills, nausea, vomiting, or diarrhea. Denies any increasing pain, swelling, or purulent drainage from affected area. His intertrigo has improved with the use of terbinafine cream. Per patient, he was also started on Diflucan. He notes improvement in redness and itching surr ounding his abdominal ulcer and under his left axilla and left sided pannicular folds. He was able to obtain Interdry and this was used to help reduce moisture within skin folds. - Physical Exam Vital Signs Temp Pulse Resp BP 96.9 F L 101 H 18 104/63 01/19/20 09:54 01/05/20 09:20 01/19/20 09:54 01/05/20 09:20 General: Alert, Cooperative, No apparent distress HEENT: Atraumatic, Normocephalic Oral: Moist Mucosa Neck: Supple, Trachea Midline Lungs: Normal air movement Abdomen: Obese Extremities: Capillary Refill Less than 3 Seconds Skin: Ulcer/ Wound - Abdominal ulcer with subcutaneous layer exposed. Good granulation tissue is present. No tunneling, undermining, or probing to bone. Periulcer warmth and erythema have improved. No purulent/malodorous drainage., Rash Present - Intertrigo improved Wound Measurements and Assessment WC - Nurse 1 - General Ulcer Measurement Start: 01/05/20 09:20 Freq: Status: Active Protocol: Activity Type Activity Date Activity User E-Sign Co-Sign Detail Recorded Client Recorded Date Recorded By Document 01/19/20 09:54 [facility] [id number] 01/19/20 10:06 [facility] 01/19/20 09:54 Wound Center Nurse 1 [Ulcer Assessment] #1 lower abd post op -Combined with other wound No -Current Size (cm) - Length 1.6 -Current Size (cm) - Width 15.4 -Current Size (cm) - Depth 0.1 -Total Square Cm 24.64 -Photo Taken No -Epithelialization Large 67-100% -Tunneling No -Undermining/Tunneling No -Circular Undermining No -Exudate Amt Medium -Exudate Type Serosanguineous -Wound Margin Distinct, Outline Attached -Granulation Amt Large (67-100%) -Granulation Quality Red -Slough/Fibrin Yes -Necrosis Amt Small (1-33%) -Necrotic Tissue Type Adherent Slough -Texture (Julia-wound Skin Appearance) Assessed, Scarring -Moisture (Julia-wound Skin Appearance Assessed ) -Color (Julia-wound Skin Appearance) Assessed -Temperature (Julia-wound Skin No Abnormality Appearance) (Pt Warm) -Tenderness on Palpation (Julia-wound No Skin Appearance) -Ulcer Cleansing soapy water -Foul Odor after Cleansing No -Anesthetic Used 4% Lidocaine Solution SHALINI - Nurse 2 - General Ulcer CM Notes Start: 01/05/20 09:20 Freq: Status: Active Protocol: Activity Type Activity Date Activity User E-Sign Co-Sign Detail Recorded Client Recorded Date Recorded By Document 01/19/20 10:29 NED [id number] 01/19/20 10:32 NED 01/19/20 10:29 Wound Center Nurse 2 [Procedure/Treatment] -Time 10:30 -Correct Patient Yes -Correct Side, Site, Position Yes -Correct Procedure Yes -Procedure Performed Yes -Type of Procedure Debridement -Clinical Debridement Subcutaneous -Tissue Removed Subcutaneous -Post Debridement (cm) - Length 1.8 -Post Debridement (cm) - Width 15.0 -Post Debridement (cm) - Depth 0.1 -Total Square (Post) (cm) 27.00 -Area of Debridement (cm) - Length 1.8 -Area of Debridement (cm) - Width 15.0 -Total Square (Area) (cm) 27.00 -Tunneling No -Undermining/Tunneling No -Circular Undermining No -Wound/Ulcer Outcome Not Healed -Ulcer Cleansing Rinsed/ Irrigated with Saline -Foul Odor after Cleansing No -Bioengineered Tissue No -Bleeding Controlled with Pressure -Offloading No -Treatment Response Procedure Tolerated Well -Debridement - Subq, 1st 20sq cm Yes -Debridement, SubQ, ea addt'l 20sq cm 1 or part thereof [See Physician Procedure note for Specifics] Pain Scale: 0-10 Numeric [Pain] -Is Patient Pain Free? Yes SHALINI - Nurse 3 - General Ulcer D/C NN Start: 01/05/20 09:20 Freq: Status: Active Protocol: Activity Type Activity Date Activity User E-Sign Co-Sign Detail Recorded Client Recorded Date Recorded By Document 01/19/20 10:57 DL [id number] 01/19/20 10:58 DL 01/19/20 10:57 Wound Care Nurse 3 [Wound Dressing] #1 lower abd post op -Ulcer Cleansing Rinsed/ Irrigated with Saline -Foul Odor after Cleansing No -Other Dressing wet to dry today [Post Procedure Tolerated] -Treatment Response Procedure Tolerated Well Pain Scale: 0-10 Numeric [Pain] -Is Patient Pain Free? Yes - Visit Discharge [Visit Discharge Information] -Discharge Condition Stable -Ambulatory Status Ambulatory, Wheelchair -Notes: to resume dakins at home [Facility Notification] -Facility Type Home Health -Orders Sent Yes Psych/Mental Status: Normal Affect, Appropriate Debridement Note Post-Debridement Measurements/Treatment - Nurse 2 - General Ulcer CM Notes Start: 01/05/20 09:20 Freq: Status: Active Protocol: Activity Type Activity Date Activity User E-Sign Co-Sign Detail Recorded Client Recorded Date Recorded By Document 01/05/20 09:54 [id number] 01/05/20 09:57 Document 01/19/20 10:29 [id number] 01/19/20 10:32 01/05/20 01/19/20 09:54 10:29 Wound Center Nurse 2 #1 lower abd post op -Time 10:30 -Correct Patient Yes Yes -Correct Side, Site, Position Yes Yes -Correct Procedure Yes Yes -Procedure Performed Yes Yes -Type of Procedure Debridement Debridement -Clinical Debridement Subcutaneous Subcutaneous -Tissue Removed Subcutaneous Subcutaneous -Post Debridement (cm) - Length 2.3 1.8 -Post Debridement (cm) - Width 32.1 15.0 -Post Debridement (cm) - Depth 0.2 0.1 -Total Square (Post) (cm) 73.83 27.00 -Area of Debridement (cm) - Length 2.3 1.8 -Area of Debridement (cm) - Width 32.1 15.0 -Total Square (Area) (cm) 73.83 27.00 -Tunneling No No -Undermining/Tunneling No No -Circular Undermining No No -Wound/Ulcer Outcome Not Healed Not Healed -Ulcer Cleansing Rinsed/ Rinsed/ Irrigated with Irrigated with Saline Saline -Foul Odor after Cleansing No No -Bioengineered Tissue No No -Bleeding Controlled with Pressure Pressure -Offloading No No -Treatment Response Procedure Tolerated Well -Debridement - Subq, 1st 20sq cm Yes Yes -Debridement, SubQ, ea addt'l 20sq cm 3 1 or part thereof Pain Scale: 0-10 Numeric Is Patient Pain Free? Yes Yes - Nurse 3 - General Ulcer D/C NN Start: 01/05/20 09:20 Freq: Status: Active Protocol: Activity Type Activity Date Activity User E-Sign Co-Sign Detail Recorded Client Recorded Date Recorded By Document 01/19/20 10:57 DL [id number] 01/19/20 10:58 DL 01/19/20 10:57 Wound Care Nurse 3 #1 lower abd post op -Ulcer Cleansing Rinsed/ Irrigated with Saline -Foul Odor after Cleansing No -Other Dressing wet to dry today Treatment Response Procedure Tolerated Well Pain Scale: 0-10 Numeric Is Patient Pain Free? Yes WC - Visit Discharge Discharge Condition Stable Ambulatory Status Ambulatory, Wheelchair Notes: to resume dakins at home Facility Type Home Health Orders Sent Yes Wound debrided: Abdominal wall Laterality: Left Type of Debridement: Excisional debridement Anesthesia Used: 4% Lidocaine Solution Depth: in the subcutaneous layer Percentage of wound debrided: 100 Instrument Used: 5mm curette Tissue Removed: Slough and devitalized tissue Severity: Fat Layer Exposed Amount of bleeding with debridement: Mild Bleeding Controlled with: Pressure Patient tolerated procedure well Assessment/Plan Active Problems (Last Reviewed 07/19/19 @ 22:[address] Anthony Pisano MD) Encounter for other specified surgical aftercare (Chronic) Ulcer of abdomen wall with fat layer exposed (Chronic) Intertrigo (Chronic) abdominal wall skin crease intertrigo Panniculitis (Chronic) Abdominal panniculus, symptomatic (Chronic) History of DVT (deep vein thrombosis) (Chronic) Assessment: 1. Massive abdominal panniculus with panniculitis. 2. Necrotizing soft tissue infection. 3. Nonhealing ulcer right abdominal wall. 4. Recent weight loss. 5. Abdominal wall skin crease intertrigo. 6. Painful lymphedema lower abdominal wall. 7. Lumbar back pain. 8. History of laparoscopic ventral hernia repair with mesh. 9. History of DVT. 10. s/p surgical preparation right abdominal wall with excisional debridement skin, subcutaneous tissue, and fascia necrotizing soft tissue infection (731 cm2) and abdominal panniculectomy. Plan: Continue with Dakin's dressing changes daily. Continue inter-dry for moisture management between skin folds. Continue terbinafine HCl 1% topical cream twice daily to the affected areas of his pannicular folds and left axilla. This may be continued for up to 4 weeks. He was advised not to use this in his ulcer. Patient's wound cultures collected on 01/05/2020 were positive for 2+ bacillus species, not anthracis. This is likely a contaminant and we will not initiate treatment at this time due to good response with antifungal treatment. He finished Zosyn for cultures on 11/03/19 that showed Enterobacter cloacae, Enterococcus faecalis, and Proteus mirabilis. His Prealbumin from 11/03/19 was 14.9. Encourage nutritional supplementation with protein to help the healing process. Will consider more abdominal wall surgery for his massive abdominal panniculus in 3 months, after the first of the year. Follow-up in 2 weeks for reevaluation. Follow-up sooner should new or concerning symptoms arise, or present symptoms worsen. Note: [employer] speech recognition database management specialist software was used to create portions of this document. Sound-alike and misspelled words, as well as other database management specialist errors may be contained in the documentation. [id number]: [id number] Global Visit
== END 2020-01-24 23:59 ==
LOC: WC 10:00
PROVIDERS: PCP Family Medicine Geriatric Medicine; Referring Provider Surgery; Visit Provider Surgery
DX: M79.3 Panniculitis, unspecified (principal); L30.4 Erythema intertrigo; L98.492 Non-pressure chronic ulcer of skin of other sites with fat layer exposed; E65 Localized adiposity; Z86.718 Personal history of other venous thrombosis and embolism; I89.0 Lymphedema, not elsewhere classified; M54.5 Low back pain
CPT/HCPCS: 11042; 11045; 87070; 87075; 87205

== ENCOUNTER 2020-02-23 09:45 | Outpatient (RCR) | payer MEDICARE, MEDICAID, SELFPAY ==
[2020-01-21 14:15] VITALS: BMI 62.3
[2020-01-25 00:13] VITALS: BP 104/63; PULSE 101; RESP 18; TEMP 36.1
[2020-02-02 10:07] VITALS: BP 106/62; PULSE 118; RESP 18; TEMP 35.8; BMI 62.3
--- NOTE | 2020-02-02 14:23 | PN.PCM_ITS ---
(1) Ulcer of abdomen wall with fat layer exposed Status: Chronic Code(s): L98.492 - Non-pressure chronic ulcer of skin of other sites with fat layer exposed (2) Intertrigo Status: Chronic Code(s): L30.4 - Erythema intertrigo Comment: abdominal wall skin crease intertrigo (3) Abdominal panniculus, symptomatic Status: Chronic Code(s): E65 - Localized adiposity (4) Morbid obesity Status: Chronic Code(s): E66.01 - Morbid (severe) obesity due to excess calories Type of Wound Date of Service: 02/02/20 Chief Complaint: Nonhealing ulcer right abdominal wall. History of Wound: Surgery 10/21/19 - 1. Surgical preparation right abdominal wall with excisional debridement skin, subcutaneous tissue, and fascia necrotizing soft tissue infection (731 cm2). 2. Abdominal panniculectomy. Wound care was initially wound VAC. He is now using Dakin's dressing changes daily. He has been using Interdry which has helped with his Intertrigo. Operative cultures - negative. He was discharged on Cefadroxil and finished them. Patient was having with issues with copious amounts of drainage and difficulty dealing with the wound at home. He was admitted on 11/03/19. Wound cultures from 11/03/19 were positive for Enterobacter cloacae, Enterococcus falcalis and Proteus mirabilis. He was placed on IV Zosyn and Vancomycin. He was discharged on 11/05/19 to [facility] and continued Zosyn through a PICC line and has finished them. The PICC line was pulled. The wound care was continued with the VAC. Prealbumin from 11/03/19 was 14.9. Encourage nutritional supplementation with protein to help the healing process. Today he denies fevers and states his appetite is ok. Progress of Wound: Improved. - Physical Exam Vital Signs Temp Pulse Resp BP 96.5 F L 118 H 18 106/62 02/02/20 10:07 02/02/20 10:07 02/02/20 10:07 02/02/20 10:07 General: Alert, Oriented x3, Cooperative HEENT: Atraumatic Oral: Moist Mucosa Lungs: Normal air movement Cardiovascular: Regular rate Abdomen: Obese Extremities: Capillary Refill Less than 3 Seconds Skin: Ulcer/ Wound - Right lower abdomen ulcer beefy pink. Wound Measurements and Assessment WC - Nurse 1 - General Ulcer Measurement Start: 02/02/20 10:05 Freq: Status: Active Protocol: Activity Type Activity Date Activity User E-Sign Co-Sign Detail Recorded Client Recorded Date Recorded By Document 02/02/20 10:07 [facility] [id number] 02/02/20 10:19 [facility] 02/02/20 10:07 Wound Center Nurse 1 [Ulcer Assessment] #1 lower abd post op -Combined with other wound No -Current Size (cm) - Length 0.3 -Current Size (cm) - Width 9.6 -Current Size (cm) - Depth 0.2 -Total Square Cm 2.88 -Photo Taken No -Epithelialization Medium 34-66% -Tunneling No -Undermining/Tunneling No -Circular Undermining No -Exudate Amt Small -Exudate Type Serosanguineous -Wound Margin Distinct, Outline Attached -Granulation Amt Large (67-100%) -Granulation Quality Red -Slough/Fibrin Yes -Necrosis Amt Small (1-33%) -Necrotic Tissue Type Adherent Slough -Texture (Julia-wound Skin Appearance) Assessed, Scarring -Moisture (Julia-wound Skin Appearance Assessed,Dry/ ) Scaly -Color (Julia-wound Skin Appearance) Assessed -Temperature (Julia-wound Skin No Abnormality Appearance) (Pt Warm) -Tenderness on Palpation (Julia-wound No Skin Appearance) -Ulcer Cleansing soapy water -Foul Odor after Cleansing No -Anesthetic Used 4% Lidocaine Solution - Nurse 2 - General Ulcer CM Notes Start: 02/02/20 10:05 Freq: Status: Active Protocol: Activity Type Activity Date Activity User E-Sign Co-Sign Detail Recorded Client Recorded Date Recorded By Document 02/02/20 10:48 [id number] 02/02/20 10:50 02/02/20 10:48 Wound Center Nurse 2 [Procedure/Treatment] -Time 10:49 -Correct Patient Yes -Correct Side, Site, Position Yes -Correct Procedure Yes -Procedure Performed Yes -Type of Procedure Debridement -Clinical Debridement Subcutaneous -Tissue Removed Subcutaneous -Post Debridement (cm) - Length 0.5 -Post Debridement (cm) - Width 9.5 -Post Debridement (cm) - Depth 0.2 -Total Square (Post) (cm) 4.75 -Area of Debridement (cm) - Length 0.5 -Area of Debridement (cm) - Width 9.5 -Total Square (Area) (cm) 4.75 -Tunneling No -Undermining/Tunneling No -Circular Undermining No -Wound/Ulcer Outcome Not Healed -Ulcer Cleansing Rinsed/ Irrigated with Saline -Foul Odor after Cleansing No -Bioengineered Tissue No -Bleeding Controlled with Pressure -Offloading No -Treatment Response Procedure Tolerated Well -Debridement - Subq, 1st 20sq cm Yes [See Physician Procedure note for Specifics] Pain Scale: 0-10 Numeric [Pain] -Is Patient Pain Free? Yes Musculoskeletal: Tenderness Neurological: Cranial nerves II-XII grossly intact Psych/Mental Status: Normal Affect, Appropriate Debridement Note Post-Debridement Measurements/Treatment WC - Nurse 2 - General Ulcer CM Notes Start: 02/02/20 10:05 Freq: Status: Active Protocol: Activity Type Activity Date Activity User E-Sign Co-Sign Detail Recorded Client Recorded Date Recorded By Document 02/02/20 10:48 NED [id number] 02/02/20 10:50 NED 02/02/20 10:48 Wound Center Nurse 2 #1 lower abd post op -Time 10:49 -Correct Patient Yes -Correct Side, Site, Position Yes -Correct Procedure Yes -Procedure Performed Yes -Type of Procedure Debridement -Clinical Debridement Subcutaneous -Tissue Removed Subcutaneous -Post Debridement (cm) - Length 0.5 -Post Debridement (cm) - Width 9.5 -Post Debridement (cm) - Depth 0.2 -Total Square (Post) (cm) 4.75 -Area of Debridement (cm) - Length 0.5 -Area of Debridement (cm) - Width 9.5 -Total Square (Area) (cm) 4.75 -Tunneling No -Undermining/Tunneling No -Circular Undermining No -Wound/Ulcer Outcome Not Healed -Ulcer Cleansing Rinsed/ Irrigated with Saline -Foul Odor after Cleansing No -Bioengineered Tissue No -Bleeding Controlled with Pressure -Offloading No -Treatment Response Procedure Tolerated Well -Debridement - Subq, 1st 20sq cm Yes Pain Scale: 0-10 Numeric Is Patient Pain Free? Yes Wound debrided: lower abdominal ulcer Laterality: Right Type of Debridement: Excisional debridement Anesthesia Used: 5% Lidocaine Gel Depth: Down to and including healthy tissue, in the subcutaneous layer Instrument Used: 3mm curette Tissue Removed: Subcutaneous tissue and slough Severity: Fat Layer Exposed Amount of bleeding with debridement: Mild Bleeding Controlled with: Pressure, Compression and gauze Patient tolerated procedure well Assessment/Plan Assessment: 1. Massive abdominal panniculus with panniculitis. 2. Necrotizing soft tissue infection. 3. Nonhealing ulcer right abdominal wall. 4. Recent weight loss. 5. Abdominal wall skin crease intertrigo. 6. Painful lymphedema lower abdominal wall. 7. Lumbar back pain. 8. History of laparoscopic ventral hernia repair with mesh. 9. History of DVT. 10. s/p surgical preparation right abdominal wall with excisional debridement skin, subcutaneous tissue, and fascia necrotizing soft tissue infection (731 cm2) and abdominal panniculectomy. Plan: Stop Dakin's dressing changes and start Collagen hydrogel covered by gauze daily. Continue inter-dry for moisture management between skin folds. Continue terbinafine HCl 1% topical cream twice daily to the affected areas of his pannicular folds and left axilla. This may be continued for up to 4 weeks. He was advised not to use this in his ulcer. Patient's wound cultures collected on 01/05/2020 were positive for 2+ bacillus species, not anthracis. This is likely a contaminant and we will not initiate treatment at this time due to good response with antifungal treatment. He finished Zosyn for cultures on 11/03/19 that showed Enterobacter cloacae, Enterococcus faecalis, and Proteus mirabilis. His Prealbumin from 11/03/19 was 14.9. Encourage nutritional supplementation with protein to help the healing process. Will consider more abdominal wall surgery for his massive abdominal panniculus in 3 months, after the first of the year. Follow-up in 2 weeks for reevaluation. Follow-up sooner should new or concerning symptoms arise, or present symptoms worsen. [id number]: [id number] Britni subq tissue 20 sq cm/<
[2020-02-23 10:01] VITALS: BP 120/66; PULSE 68; RESP 18; TEMP 35.9; BMI 62.3
--- NOTE | 2020-02-23 12:42 | PN.PCM_ITS ---
(1) Ulcer of abdomen wall with fat layer exposed Status: Chronic Code(s): L98.492 - Non-pressure chronic ulcer of skin of other sites with fat layer exposed (2) Intertrigo Status: Chronic Code(s): L30.4 - Erythema intertrigo Comment: abdominal wall skin crease intertrigo (3) Abdominal panniculus, symptomatic Status: Chronic Code(s): E65 - Localized adiposity (4) Morbid obesity Status: Chronic Code(s): E66.01 - Morbid (severe) obesity due to excess calories Type of Wound Date of Service: 02/23/20 Chief Complaint: Nonhealing ulcer right abdominal wall. History of Wound: Surgery 10/21/19 - 1. Surgical preparation right abdominal wall with excisional debridement skin, subcutaneous tissue, and fascia necrotizing soft tissue infection (731 cm2). 2. Abdominal panniculectomy. Wound care was initially wound VAC. He is now using Dakin's dressing changes daily, which we will stop at this time and start collagen hydrogel covered by gauze. He has been using Interdry which has helped with his Intertrigo. Operative cultures - negative. He was discharged on Cefadroxil and finished them. Patient was having with issues with copious amounts of drainage and difficulty dealing with the wound at home. He was admitted on 11/03/19. Wound cultures from 11/03/19 were positive for Enterobacter cloacae, Enterococcus falcalis and Proteus mirabilis. He was placed on IV Zosyn and Vancomycin. He was discharged on 11/05/19 to [facility] and continued Zosyn through a PICC line and has finished them. The PICC line was pulled. The wound care was continued with the VAC. Prealbumin from 11/03/19 was 14.9. Encourage nutritional supplementation with protein to help the healing process. Today he denies fevers and states his appetite is ok. Progress of Wound: Improved. - Physical Exam Vital Signs Temp Pulse Resp BP 96.7 F L 68 18 120/66 02/23/20 10:01 02/23/20 10:01 02/23/20 10:01 02/23/20 10:01 General: Alert, Oriented x3, Cooperative HEENT: Atraumatic Oral: Moist Mucosa Lungs: Normal air movement Cardiovascular: Regular rate Abdomen: Obese Extremities: Capillary Refill Less than 3 Seconds Skin: Ulcer/ Wound - Right lower abdomen ulcer is almost healed. Wound Measurements and Assessment - Nurse 1 - General Ulcer Measurement Start: 02/02/20 10:05 Freq: Status: Active Protocol: Activity Type Activity Date Activity User E-Sign Co-Sign Detail Recorded Client Recorded Date Recorded By Document 02/23/20 10:01 JIM [id number] 02/23/20 10:08 JIM 02/23/20 10:01 Wound Center Nurse 1 [Ulcer Assessment] #1 lower abd post op -Current Size (cm) - Length 0.2 -Current Size (cm) - Width 7 -Current Size (cm) - Depth 0.2 -Total Square Cm 1.4 -Photo Taken No -Exudate Amt Small -Exudate Type Serosanguineous -Wound Margin Thickened -Granulation Amt Large (67-100%) -Granulation Quality Red -Necrosis Amt None Present (0 %) -Structure Exposed N/A -Texture (Julia-wound Skin Appearance) Scarring -Moisture (Julia-wound Skin Appearance No Abnormality ) -Color (Julia-wound Skin Appearance) No Abnormality -Temperature (Julia-wound Skin No Abnormality Appearance) (Pt Warm) -Tenderness on Palpation (Julia-wound No Skin Appearance) -Anesthetic Used 4% Lidocaine Solution - Nurse 2 - General Ulcer CM Notes Start: 02/02/20 10:05 Freq: Status: Active Protocol: Activity Type Activity Date Activity User E-Sign Co-Sign Detail Recorded Client Recorded Date Recorded By Document 02/23/20 10:22 NED [id number] 02/23/20 10:24 NED 02/23/20 10:22 Wound Center Nurse 2 [Procedure/Treatment] -Correct Patient Yes -Correct Side, Site, Position Yes -Correct Procedure Yes -Procedure Performed Yes -Type of Procedure Debridement -Clinical Debridement Subcutaneous -Tissue Removed Subcutaneous -Post Debridement (cm) - Length 0.7 -Post Debridement (cm) - Width 7.7 -Post Debridement (cm) - Depth 0.2 -Total Square (Post) (cm) 5.39 -Area of Debridement (cm) - Length 0.7 -Area of Debridement (cm) - Width 7.7 -Total Square (Area) (cm) 5.39 -Tunneling No -Undermining/Tunneling No -Circular Undermining No -Wound/Ulcer Outcome Not Healed -Ulcer Cleansing Rinsed/ Irrigated with Saline -Foul Odor after Cleansing No -Bioengineered Tissue No -Bleeding Controlled with Pressure -Offloading No -Debridement - Subq, 1st 20sq cm Yes [See Physician Procedure note for Specifics] Pain Scale: 0-10 Numeric [Pain] -Is Patient Pain Free? Yes Musculoskeletal: No Tenderness to Palpation of Joints or Extremities Neurological: Cranial nerves II-XII grossly intact Psych/Mental Status: Normal Affect, Appropriate Debridement Note Post-Debridement Measurements/Treatment WC - Nurse 2 - General Ulcer CM Notes Start: 02/02/20 10:05 Freq: Status: Active Protocol: Activity Type Activity Date Activity User E-Sign Co-Sign Detail Recorded Client Recorded Date Recorded By Document 02/02/20 10:48 [id number] 02/02/20 10:50 Document 02/23/20 10:22 [id number] 02/23/20 10:24 02/02/20 02/23/20 10:48 10:22 Wound Center Nurse 2 #1 lower abd post op -Time 10:49 -Correct Patient Yes Yes -Correct Side, Site, Position Yes Yes -Correct Procedure Yes Yes -Procedure Performed Yes Yes -Type of Procedure Debridement Debridement -Clinical Debridement Subcutaneous Subcutaneous -Tissue Removed Subcutaneous Subcutaneous -Post Debridement (cm) - Length 0.5 0.7 -Post Debridement (cm) - Width 9.5 7.7 -Post Debridement (cm) - Depth 0.2 0.2 -Total Square (Post) (cm) 4.75 5.39 -Area of Debridement (cm) - Length 0.5 0.7 -Area of Debridement (cm) - Width 9.5 7.7 -Total Square (Area) (cm) 4.75 5.39 -Tunneling No No -Undermining/Tunneling No No -Circular Undermining No No -Wound/Ulcer Outcome Not Healed Not Healed -Ulcer Cleansing Rinsed/ Rinsed/ Irrigated with Irrigated with Saline Saline -Foul Odor after Cleansing No No -Bioengineered Tissue No No -Bleeding Controlled with Pressure Pressure -Offloading No No -Treatment Response Procedure Tolerated Well -Debridement - Subq, 1st 20sq cm Yes Yes Pain Scale: 0-10 Numeric Is Patient Pain Free? Yes Yes Wound debrided: Lower abdomen ulcer Laterality: Right Type of Debridement: Excisional debridement Anesthesia Used: 5% Lidocaine Gel Depth: Down to and including healthy tissue, in the subcutaneous layer Percentage of wound debrided: 100 Instrument Used: 3mm curette Tissue Removed: Subcutaneous tissue and slough Severity: Limited To Skin Breakdown Amount of bleeding with debridement: None Bleeding Controlled with: Pressure Assessment/Plan Active Problems (Last Reviewed 07/19/19 @ 22:[address] Anthony Pisano MD) Ulcer of abdomen wall with fat layer exposed (Chronic) Morbid obesity (Chronic) Intertrigo (Chronic) abdominal wall skin crease intertrigo Abdominal panniculus, symptomatic (Chronic) Assessment: 1. Massive abdominal panniculus with panniculitis. 2. Necrotizing soft tissue infection. 3. Nonhealing ulcer right abdominal wall. 4. Recent weight loss. 5. Abdominal wall skin crease intertrigo. 6. Painful lymphedema lower abdominal wall. 7. Lumbar back pain. 8. History of laparoscopic ventral hernia repair with mesh. 9. History of DVT. 10. s/p surgical preparation right abdominal wall with excisional debridement skin, subcutaneous tissue, and fascia necrotizing soft tissue infection (731 cm2) and abdominal panniculectomy. Plan: Stop Dakin's dressing changes and start Collagen hydrogel covered by gauze daily. Continue inter-dry for moisture management between skin folds. Continue terbinafine HCl 1% topical cream twice daily to the affected areas of his pannicular folds and left axilla. This may be continued for up to 4 weeks. He was advised not to use this in his ulcer. Patient's wound cultures collected on 01/05/2020 were positive for 2+ bacillus species, not anthracis. This is likely a contaminant and we will not initiate treatment at this time due to good response with antifungal treatment. He finished Zosyn for cultures on 11/03/19 that showed Enterobacter cloacae, Enterococcus faecalis, and Proteus mirabilis. His Prealbumin from 11/03/19 was 14.9. Encourage nutritional supplementation with protein to help the healing process. Will consider more abdominal wall surgery for his massive abdominal panniculus in 3 months, after the first of the year. Follow-up in 2 weeks for reevaluation. Follow-up sooner should new or concerning symptoms arise, or present symptoms worsen. [id number]: [id number] Britni subq tissue 20 sq cm/<
== END 2020-02-23 23:59 ==
LOC: WC 09:45
PROVIDERS: PCP Family Medicine Geriatric Medicine; Referring Provider Surgery; Visit Provider Surgery
DX: L98.492 Non-pressure chronic ulcer of skin of other sites with fat layer exposed (principal); L30.4 Erythema intertrigo; E65 Localized adiposity; E66.01 Morbid (severe) obesity due to excess calories; M79.3 Panniculitis, unspecified; Z86.718 Personal history of other venous thrombosis and embolism; M54.5 Low back pain; I89.0 Lymphedema, not elsewhere classified
CPT/HCPCS: 11042

== ENCOUNTER 2020-03-08 09:30 | Outpatient (RCR) | payer MEDICARE, SELFPAY ==
[2020-02-24 00:15] VITALS: BP 120/66; PULSE 68; RESP 18; TEMP 35.9
[2020-03-08 09:50] VITALS: BP 140/87; PULSE 86; RESP 20; TEMP 36.1; BMI 62.3
--- NOTE | 2020-03-08 12:50 | PCM.WC.PN ---
Type of Wound Date of Service: 03/08/20 Chief Complaint: Nonhealing ulcer right abdominal wall. History of Wound: Surgery 10/21/19 - 1. Surgical preparation right abdominal wall with excisional debridement skin, subcutaneous tissue, and fascia necrotizing soft tissue infection (731 cm2). 2. Abdominal panniculectomy. Wound care - Collagen Hydrogel. Operative cultures - negative. He was discharged on Cefadroxil and finished them. Patient was having with issues with copious amounts of drainage and difficulty dealing with the wound at home. He was admitted on 11/03/19. Wound cultures from 11/03/19 were positive for Enterobacter cloacae, Enterococcus falcalis and Proteus mirabilis. He was placed on IV Zosyn and Vancomycin. He was discharged on 11/05/19 to [facility] [place] and continued Zosyn through a PICC line and has finished them. The PICC line was pulled. Prealbumin from 11/03/19 was 14.9. Encourage nutritional supplementation with protein to help the healing process. Today he denies fevers and states his appetite is ok. He has persistent dependent edema in the left side of his massive abedominal panniculus. Progress of Wound: Improved. - Physical Exam Vital Signs Temp Pulse Resp BP 96.9 F L 86 20 H 140/87 H 03/08/20 09:50 03/08/20 09:50 03/08/20 09:50 03/08/20 09:50 Wound Measurements and Assessment WC - Nurse 1 - General Ulcer Measurement Start: 03/08/20 09:48 Freq: Status: Active Protocol: Activity Type Activity Date Activity User E-Sign Co-Sign Detail Recorded Client Recorded Date Recorded By Document 03/08/20 09:50 [facility] [id number] 03/08/20 09:58 [facility] 03/08/20 09:50 Wound Center Nurse 1 [Ulcer Assessment] #1 lower abd post op -Combined with other wound No -Current Size (cm) - Length 0.5 -Current Size (cm) - Width 1.5 -Current Size (cm) - Depth 0.2 -Total Square Cm 0.75 -Photo Taken No -Epithelialization Small 1-33% -Tunneling No -Undermining/Tunneling No -Circular Undermining No -Exudate Amt Small -Exudate Type Serosanguineous -Wound Margin Distinct, Outline Attached -Granulation Amt Large (67-100%) -Granulation Quality Red -Slough/Fibrin Yes -Necrosis Amt Small (1-33%) -Necrotic Tissue Type Adherent Slough -Texture (Julia-wound Skin Appearance) Assessed, Scarring -Moisture (Julia-wound Skin Appearance Assessed, ) Maceration -Color (Julia-wound Skin Appearance) Assessed,Palor -Temperature (Julia-wound Skin No Abnormality Appearance) (Pt Warm) -Tenderness on Palpation (Julia-wound No Skin Appearance) -Ulcer Cleansing Rinsed/ Irrigated with Saline -Foul Odor after Cleansing No -Anesthetic Used 4% Lidocaine Solution SHALINI - Nurse 2 - General Ulcer CM Notes Start: 03/08/20 09:48 Freq: Status: Active Protocol: Activity Type Activity Date Activity User E-Sign Co-Sign Detail Recorded Client Recorded Date Recorded By Document 03/08/20 10:28 NED [id number] 03/08/20 10:31 NED 03/08/20 10:28 Wound Center Nurse 2 [Procedure/Treatment] -Time 10:29 -Correct Patient Yes -Correct Side, Site, Position Yes -Correct Procedure Yes -Procedure Performed Yes -Type of Procedure Debridement -Clinical Debridement Subcutaneous -Tissue Removed Subcutaneous -Post Debridement (cm) - Length 0.5 -Post Debridement (cm) - Width 1.8 -Post Debridement (cm) - Depth 0.1 -Total Square (Post) (cm) 0.90 -Area of Debridement (cm) - Length 0.5 -Area of Debridement (cm) - Width 1.8 -Total Square (Area) (cm) 0.90 -Tunneling No -Undermining/Tunneling No -Circular Undermining No -Wound/Ulcer Outcome Not Healed -Ulcer Cleansing Rinsed/ Irrigated with Saline -Foul Odor after Cleansing No -Bioengineered Tissue No -Bleeding Controlled with Pressure -Offloading No -Debridement - Open, 1st 20sq cm No -Debridement - Subq, 1st 20sq cm Yes [See Physician Procedure note for Specifics] Pain Scale: 0-10 Numeric [Pain] -Is Patient Pain Free? Yes SHALINI - Nurse 3 - General Ulcer D/C NN Start: 03/08/20 09:48 Freq: Status: Active Protocol: Activity Type Activity Date Activity User E-Sign Co-Sign Detail Recorded Client Recorded Date Recorded By Document 03/08/20 10:44 [facility] [id number] 03/08/20 10:44 [facility] 03/08/20 10:44 Wound Care Nurse 3 [Wound Dressing] #1 lower abd post op -Ulcer Cleansing Rinsed/ Irrigated with Saline -Foul Odor after Cleansing No -Primary Dressing Applied C Hydrogel ($) -Primary Dressing Covered/Secured Dry Gauze, with Secured with Tape [Post Procedure Tolerated] -Treatment Response Procedure Tolerated Well - Visit Discharge [Visit Discharge Information] -Discharge Condition Stable -Ambulatory Status Wheelchair [Facility Notification] -Facility Type Home Health Debridement Note Post-Debridement Measurements/Treatment - Nurse 2 - General Ulcer CM Notes Start: 03/08/20 09:48 Freq: Status: Active Protocol: Activity Type Activity Date Activity User E-Sign Co-Sign Detail Recorded Client Recorded Date Recorded By Document 03/08/20 10:28 [id number] 03/08/20 10:31 NED 03/08/20 10:28 Wound Center Nurse 2 #1 lower abd post op -Time 10:29 -Correct Patient Yes -Correct Side, Site, Position Yes -Correct Procedure Yes -Procedure Performed Yes -Type of Procedure Debridement -Clinical Debridement Subcutaneous -Tissue Removed Subcutaneous -Post Debridement (cm) - Length 0.5 -Post Debridement (cm) - Width 1.8 -Post Debridement (cm) - Depth 0.1 -Total Square (Post) (cm) 0.90 -Area of Debridement (cm) - Length 0.5 -Area of Debridement (cm) - Width 1.8 -Total Square (Area) (cm) 0.90 -Tunneling No -Undermining/Tunneling No -Circular Undermining No -Wound/Ulcer Outcome Not Healed -Ulcer Cleansing Rinsed/ Irrigated with Saline -Foul Odor after Cleansing No -Bioengineered Tissue No -Bleeding Controlled with Pressure -Offloading No -Debridement - Open, 1st 20sq cm No -Debridement - Subq, 1st 20sq cm Yes Pain Scale: 0-10 Numeric Is Patient Pain Free? Yes - Nurse 3 - General Ulcer D/C NN Start: 03/08/20 09:48 Freq: Status: Active Protocol: Activity Type Activity Date Activity User E-Sign Co-Sign Detail Recorded Client Recorded Date Recorded By Document 03/08/20 10:44 [facility] [id number] 03/08/20 10:44 [facility] 03/08/20 10:44 Wound Care Nurse 3 #1 lower abd post op -Ulcer Cleansing Rinsed/ Irrigated with Saline -Foul Odor after Cleansing No -Primary Dressing Applied C Hydrogel ($) -Primary Dressing Covered/Secured with Dry Gauze, Secured with Tape Treatment Response Procedure Tolerated Well WC - Visit Discharge Discharge Condition Stable Ambulatory Status Wheelchair Facility Type Home Health Wound debrided: #1 Right abdominal wall. Laterality: Right Wound Grade/Stage: 2. Type of Debridement: Excisional debridement Anesthesia Used: 4% Lidocaine Solution Depth: Down to and including healthy tissue, in the subcutaneous layer Percentage of wound debrided: 100 Instrument Used: 3mm curette Tissue Removed: subcutaneous tissue. Severity: Fat Layer Exposed Amount of bleeding with debridement: Mild Bleeding Controlled with: Pressure Patient tolerated procedure well Assessment/Plan Assessment: 1. Massive abdominal panniculus with panniculitis. 2. Necrotizing soft tissue infection. 3. Nonhealing ulcer right abdominal wall. 4. Recent weight loss. 5. Abdominal wall skin crease intertrigo. 6. Painful lymphedema lower abdominal wall. 7. Lumbar back pain. 8. History of laparoscopic ventral hernia repair with mesh. 9. History of DVT. 10. s/p surgical preparation right abdominal wall with excisional debridement skin, subcutaneous tissue, and fascia necrotizing soft tissue infection (731 cm2) and abdominal panniculectomy. Plan: Continue Collagen hydrogel covered by gauze daily. Continue terbinafine HCl 1% topical cream twice daily to the affected areas of his pannicular folds and left axilla. This may be continued for up to 4 weeks. He was advised not to use this in his ulcer. Patient's wound cultures collected on 01/05/2020 were positive for 2+ bacillus species, not anthracis. This is likely a contaminant and we will not initiate treatment at this time due to good response with antifungal treatment. He finished Zosyn for cultures on 11/03/19 that showed Enterobacter cloacae, Enterococcus faecalis, and Proteus mirabilis. His Prealbumin from 11/03/19 was 14.9. Encourage nutritional supplementation with protein to help the healing process. He has persistent dependent edema left abdominal wall aspect of his panniculus. Will schedule further excisional debridement and abdominal panniculuectomy next month. Patient was informed of the risks and complications of the procedure including alternatives to surgery. These were discussed with him personally. He voices understanding and wishes to proceed. Followup 2 weeks. [id number]: [id number] Britni subq tissue 20 sq cm/< - ICD-10 - E65, M79.3, M79.89, L98.492, R63.4, L30.4, I89.0, M54.5, Z98.890, Z86.718
--- NOTE | 2020-03-15 09:51 | WC ---
PTS HH NURSE CALLED AND LEFT MSG. HAD NURSE VISIT TODAY W/ PATIENT. REPORTED ^ REDNESS SURROUNDING WOUND, AND WARM TO TOUCH. PT REPORTS FEVER, BUT TEMP FOR HER WAS 98 AFTER HE HAD TAKEN TYLENOL. PT REPORTS THAT THE WOUND LOOKS LIKE IT DID THE LAST TIME HE HAD CELLULITIS. SADIQ GLASS UPDATED. N.O. FOR CEFADROXIL CALLED TO PTS PREFERRED PHARMACY [facility]. ALLERGIES VERIFIED. PT CALLED AND UPDATED. ATTEMPTED TO NOTIFY HIS HH NURSE, VOICE MAIL IS FULL.
== END 2020-03-25 23:59 ==
LOC: WC 09:30
PROVIDERS: PCP Family Medicine Geriatric Medicine; Referring Provider Surgery; Visit Provider Surgery
DX: M79.3 Panniculitis, unspecified (principal); L98.492 Non-pressure chronic ulcer of skin of other sites with fat layer exposed; I89.0 Lymphedema, not elsewhere classified; L30.4 Erythema intertrigo; Z86.718 Personal history of other venous thrombosis and embolism; M54.5 Low back pain
CPT/HCPCS: 11042

== ENCOUNTER 2020-03-15 19:27 | Inpatient (IN) | payer MEDICARE, MEDICAID, SELFPAY ==
[2020-03-15] VITALS (10 sets, daily range): BP systolic 60–98; BP diastolic 33–77; PULSE 54–90; RESP 20–34; TEMP 36.4–37.2; O2SAT 93–99; BMI 73.4
--- NOTE | 2020-03-15 19:49 | ED.DCSUM_ITS ---
History of Present Illness Chief Complaint: Cellulitis Narrative: This patient is a 60-year-old male who has not felt well for a couple of days. He had a panniculectomy back in October. He still has a small open wound. Yesterday he noticed some redness of his abdomen. He had an antibiotic called in which she has taken 2 doses of. However he continued to worsen so was brought into the ER here today. He had not had any fevers that he was aware of but EMS did report a fever. He denies nausea or vomiting. No diarrhea. He denies any pain. No cough. He is not diabetic. Past Medical History - Allergies and Home Meds Allergies/Adverse Reactions: Allergies latex Allergy (Verified 03/15/20 19:34) Rash warfarin sodium [From Coumadin] Adverse Reaction (Verified 03/15/20 19:34) Other caused 2 holes in lungs and chest, advised to never take again Primary Care Physician: Esteban Tim Chi, MD [Primary Care Provider] - Past Medical History: - - Hypertension, hypothyroidism, morbid obesity Surgical History: cholecystectomy, herniorrhaphy, - - Cardiac ablation x 2, Defib placement, Cholecystectomy, LLE surgery s/p trauma w/ hardware removal later, gastric sleeve surgery Smoking Status: Never smoker - Family History Maternal Family History: Family History (Last Reviewed 07/19/19 @ 22:[address] Anthony Pisano MD) Sister Arthritis Brother Psychiatric care Family History: Reports: Heart Disease, Hypertension Paternal Family History: Family History (Last Reviewed 07/19/19 @ 22:[address] Anthony Pisano MD) Sister Arthritis Brother Psychiatric care Family History: Reports: Heart Disease, Hypertension Review of Systems All systems negative except as indicated General: Reports: Fever Eyes: Denies: Visual changes - bilaterally ENT: Denies: Bilateral ear pain Cardiovascular: Denies: Chest pain Respiratory: Denies: Dyspnea Gastrointestinal: Denies: Abdominal pain, Nausea, Vomiting, Diarrhea Musculoskeletal: Denies: Myalgias, Arthralgias Skin: Reports: Rash Allergy: Denies: Uticaria Physical Exam Vital Signs/Narrative: Vital Signs Temp Pulse Resp BP Pulse Ox 03/15/20 19:38 79 20 H 91/50 L 96 03/15/20 19:28 98.3 F 94 Inital Vital Signs reviewed: Yes General: Well nourished, Obese Head: Atraumatic Eyes: EOMI ENT: Moist mucous membranes Neck: Supple Cardiovascular: Regular rate, Regular rhythm Respiratory: No distress, CTA bilaterally Abdomen: - - Abdominal wall erythematous and hot to the touch he has a small open wound under the pannus no active drainage/discharge Extremities: Nontender Skin: Negative for: Diaphoresis, Pallor Neurological: Alert Psychological: Normal affect Diagnostic/Tx/Re-eval Laboratory Results 03/15/20 03/15/20 03/15/20 20:00 20:00 20:00 WBC 11.3 H RBC 3.24 L Hgb 9.6 L Hct 31.7 L MCV 97.8 H MCH 29.6 MCHC 30.3 L RDW Std Deviation 57.2 H RDW Coeff of Florina 15.9 H Plt Count 140 L MPV 10.9 Immature Gran % (Auto) 1.200 H Neut % (Auto) 93.9 H Lymph % (Auto) 0.9 L Labette % (Auto) 3.6 Eos % (Auto) 0.1 Baso % (Auto) 0.3 Absolute Neuts (auto) 10.6 H Absolute Lymphs (auto) 0.10 L Nucleated RBC % 0 Differential Comment Sodium 136 Potassium 4.8 Chloride 108 H Carbon Dioxide 23.0 Anion Gap 5 BUN 46 H Creatinine 2.11 H Estim Creat Clear Calc 33.60 Est GFR (MDRD) Af Amer 41 L Est GFR (MDRD) Non-Af 34 L BUN/Creatinine Ratio 21.8 H Glucose 131 H Lactic Acid 2.3 H* Calcium 8.3 L Total Bilirubin 0.90 AST 11 L ALT 17 Alkaline Phosphatase 105 Total Protein 7.0 Albumin 3.1 L Globulin 3.9 Albumin/Globulin Ratio 0.8 L - Medical Decision Making Labs are notable for lactic acid of 2.3. He has a mild leukocytosis of 11.3. Patient was given IV Zosyn and vancomycin. Patient was having blood pressure readings of 60s over 30s. Patient notes that he does run a low blood pressure and often his systolic blood pressures in the 90s. Patient underwent IV fluid resuscitation. Given his morbid obesity adjusted body weight was used rather than actual body weight. His adjusted body weight is 121 kg. He received 4 L of IV fluid which is greater than 30 cc/kg IV fluid bolus. His blood pressure has been borderline. He has had some readings as high as 98/77 but his most recent blood pressure reading was 88 systolic. Therefore we did plan to start pressors, Levophed. After discussion of risks and benefits with informed consent a right internal jugular central venous catheterization was attempted. The vessel was visualized with ultrasound prior to attempt. Under sterile conditions patient's skin was anesthetized with local 1% lidocaine. Dark red nonpulsatile blood was obtained on the second stick. Blood was easily withdrawn into the syringe. Guidewire was threaded but unable to pass this farther than about 10 cm. The guidewire was removed syringe reattached and dark red nonpulsatile blood was easily aspirated again. I attempted to rethread the guidewire and again met resistance. At this time the attempt was terminated. Patient's obesity would preclude him from subclavian or femoral catheterization I do not believe these would be good candidate sites. Patient does have good peripheral IVs. Given that his blood pressure is borderline he will likely only need low-dose pressor therapy and I feel the best option at this time is starting peripheral Levophed. Patient was discussed with the hospitalist who agrees to admit to the ICU. Although patient's blood pressure is borderline he is mentating well and in fact is joking in the room and having conversations with myself and nursing staff. ED Disposition - Plan for ED Patient: Disposition: Acute Care Hospital [facility] Diagnosis: Septic shock, Abdominal wall cellulitis Referrals: Esteban Tim Chi, MD [Primary Care Provider] -
[2020-03-15 20:11] LABS: Absolute Neutrophil Count 10.6 X10^3/uL (2.0-7.7); Basophil# 0.03 X10^3/uL; Basophil% 0.3 % (0-1); Eosinophil# 0.01 X10^3/uL; Eosinophils% 0.1 % (0-5); Hematocrit 31.7 % (40-54); Hemoglobin 9.6 g/dL (13.0-16.5); Lymphocyte % 0.9 % (19-41); Mean Corp Hgb Conc 30.3 g/dL (32-36); Mean Corpuscular Hgb 29.6 pg (27.0-32.0); Mean Corpuscular Volume 97.8 fL (80-94); Mean Platelet Vol. 10.9 fl (6.2-12.0); Monocyte# 0.41 X10^3/uL; Monocyte% 3.6 % (0-10); NRBC Flagged by Analyzer 0 % (0-5); Neutrophil # 10.61 X10^3/uL (2.7-7.7); Neutrophil % 93.9 % (47-70); POSITIVE DIFFERENTIAL YES; Platelet Count 140 K/mm3 (150-450); RBC Distribution Width CV 15.9 % (11.6-14.6); RBC Distribution Width SD 57.2 fl (35.1-43.9); Red Blood Count 3.24 M/mm3 (4.6-6.2); White Blood Count 11.3 K/mm3 (4.4-11.0)
[2020-03-15] MEDS: 0.9% Normal Saline 1,000 ML 999 ML IV ×4 (20:15→23:04)
[2020-03-15 20:18] LABS: Differential Indicated SCAN CRITERIA MET
[2020-03-15 20:31] LABS: ALB/GLOB Ratio 0.8 RATIO (0.9-2.4); AST(SGOT) 11 U/L (15-37); Alanine Aminotransfer ALT/SGPT 17 U/L (16-61); Albumin, Serum 3.1 g/dL (3.2-5.0); Alkaline Phosphatase 105 U/L (45-117); Anion Gap 5 (5-15); BUN 46 mg/dL (7-18); BUN/Creat Ratio 21.8 RATIO (10-20); Calcium,Total 8.3 mg/dL (8.5-10.1); Chloride 108 mmol/L (98-107); Creatinine, Serum 2.11 mg/dL (0.70-1.30); EST Glomerular Filtration Rate 34 mL/min (>60); Est Glom Filt Rate - Afr Amer 41 mL/min (>60); Globulin 3.9 g/dL (2.2-4.2); Glucose 131 mg/dL (74-106); Potassium 4.8 mmol/L (3.5-5.1); Sodium Level 136 mmol/L (136-145)
--- NOTE | 2020-03-15 20:43 | EKG12_ITS ---
Test Reason : DYSRYTHMIA Blood Pressure : / mmHG Vent. Rate : 052 BPM Atrial Rate : 052 BPM P-R Int : 214 ms QRS Dur : 138 ms QT Int : 708 ms P-R-T Axes : 073 198 080 degrees QTc Int : 658 ms Sinus bradycardia with 1st degree A-V block Low voltage QRS Non-specific intra-ventricular conduction block Lateral infarct , age undetermined Abnormal ECG Confirmed by KATHERINE KINNEY, ABRIL ([id number]), city editor EDVIN VAN ([id number]) on 03/17/2020 10:54:00 AM Referred By: Nahun Ojeda Confirmed By:ABRIL MURPHY MD
[2020-03-15 20:46] LABS: Lactic Acid 2.3 mmol/L (0.4-1.9)
[2020-03-16] VITALS (57 sets, daily range): BP systolic 79–138; BP diastolic 41–98; PULSE 52–97; RESP 15–31; TEMP 36.3–37.2; O2SAT 91–100; BMI 73.4
--- NOTE | 2020-03-16 00:02 | RAD_ITS ---
STUDY: X-RAY CHEST REASON FOR EXAM: Male, 60 years old. failed central line attempt -- best image possible, due to patient''s very large body habitus TECHNIQUE: Single AP portable view of the chest. COMPARISON: None. FINDINGS: An AICD is seen on the left side. The lungs are clear and expanded. There is a small left pleural effusion. There is moderate cardiac enlargement. Normal mediastinum and oumou. There is prominence of the pulmonary hilar arteries and peripheral pulmonary arteries, consistent with congestive heart failure (CHF). There is atherosclerotic calcification of the aortic arch with tortuosity. Normal visualized thoracic spine. Normal visualized ribs, clavicles, and shoulders. There is no demonstrated abnormality of the visualized soft tissue structures of the upper abdomen. RAD/Chest 1 View (Portable) IMPRESSION: There is moderate cardiac enlargement There is prominence of the pulmonary hilar arteries and peripheral pulmonary arteries, consistent with congestive heart failure (CHF). There is no evidence of pneumothorax. Electronically Signed: Wolfgang Yu, at 2:21 EST Tel , Service support ,
[2020-03-16 00:05] LABS: Reflex Lactate? Y
--- NOTE | 2020-03-16 00:18 | HP.PCM_ITS ---
Problem List (1) Septic shock Status: Acute (2) Abdominal wall cellulitis Status: Acute (3) Morbid obesity Status: Chronic (4) Presence of implantable cardioverter-defibrillator (ICD) Status: Chronic (5) History of radiofrequency ablation (RFA) procedure for cardiac arrhythmia Status: Chronic Comment: 2007 @ [facility] per Dr. Lange, 2009 @ [facility] for WPW with success. (6) COPD (chronic obstructive pulmonary disease) Status: Chronic (7) Anxiety and depression Status: Chronic (8) History of DVT (deep vein thrombosis) Status: Chronic (9) Diastolic heart failure Status: Chronic (10) TEX (obstructive sleep apnea) Status: Chronic (11) Hyperlipidemia Status: Chronic Qualifiers: Hyperlipidemia type: unspecified Qualified Code(s): E78.5 - Hyperlipidemia, unspecified (12) Benign essential hypertension Status: Chronic (13) Atrial fibrillation Status: Chronic Qualifiers: Atrial fibrillation type: paroxysmal Qualified Code(s): I48.0 - Paroxysmal atrial fibrillation History of Present Illness Date of Admission: 03/16/20 Chief Complaint: Lower abdominal pain. The patient is a 60 year old M with past medical history as mentioned above presented to the emergency room because of not feeling well and lower abdominal pain as well as redness. Patient had a history of massive lower abdominal panniculus with panniculitis underwent excisional debridement and abdominal panniculectomy on September, by Dr. Pisano and he has been following up with the wound care center for this. The area of the surgical incision has been almost healed but he still have small opening just below and the right to the umbilicus. He mentioned that over the last couple of days, there has been increasing pain at the lower abdomen, dull aching pain, mild, not radiating, associated with increasing redness and swelling of the lower abdomen just below the umbilicus and without aggravating or relieving factors. He denies fever or chills. He was admitted on October, for shock and LARRY on CKD and he was discharged to long term facility. In the emergency department, patient was afebrile, he was hypotensive, pulse ox was 97% on 2 L. He received a total of 4 L of IV fluid bolus and his blood pressure remained around 80 systolic. He mentioned that his blood pressure usually runs low in the 90s. Patient was started on IV Levophed drip because his blood pressure did not improve with IV fluid bolus. On cardiac monitoring, it is not picking up the QRS complexes and is not showing asystole because of the body habitus of the patient. Patient is alert and oriented and currently on IV Levophed drip. Routine blood work was remarkable for mild leukocytosis, mild thrombocytopenia and chronic anemia. His BUN was 46 and creatinine was 2.11. Lactic acid was 2.3. LFT was unremarkable. He is being admitted for septic shock secondary to acute lower abdominal wall cellulitis/panniculitis in context of recent history of lower abdominal wall panniculectomy for panniculitis. Past Medical History Past Medical History (Chronic Problems): Chronic Problems (Last Updated 03/16/20 @ 00:[address] Nahun Ojeda MD) Ulcer of abdomen wall with fat layer exposed (Chronic) Morbid obesity (Chronic) Open wound, abdominal wall, lateral (Chronic) History of ventral hernia repair (Chronic) with mesh in last [address] [facility] Lumbar back pain (Chronic) from weight of massive abdominal panniculus Ventral hernia (Chronic) laparoscopic repair 2 years ago with mesh Lymphedema (Chronic) painful lymphedema lower abdominal wall Intertrigo (Chronic) abdominal wall skin crease intertrigo Recent weight loss (Chronic) about 100 lbs Panniculitis (Chronic) Abdominal panniculus, symptomatic (Chronic) Presence of implantable cardioverter-defibrillator (ICD) (Chronic) History of radiofrequency ablation (RFA) procedure for cardiac arrhythmia (Chronic) 2007 @ [facility] per Dr. Lange, 2009 @ [facility] for WPW with success. 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) Rotator cuff tear (Chronic) COPD (chronic obstructive pulmonary disease) (Chronic) Anxiety and depression (Chronic) History of DVT (deep vein thrombosis) (Chronic) Diastolic heart failure (Chronic) TEX (obstructive sleep apnea) (Chronic) Hyperlipidemia (Chronic) Benign essential hypertension (Chronic) Rheumatoid arthritis (Chronic) dilated right ventricle (Chronic) Cardiomyopathy (Chronic) Super obesity (Chronic) WPW (Yszmd-Hnfeknjby-Tfijn syndrome) (Chronic) Atrial fibrillation (Chronic) Medical History: Medical History (Last Updated 03/16/20 @ 00:[address] Nahun Ojeda MD) Lumbar back pain (Chronic) M54.5 from weight of massive abdominal panniculus Ventral hernia (Chronic) K43.9 laparoscopic repair 2 years ago with mesh Lymphedema (Chronic) I89.0 painful lymphedema lower abdominal wall Intertrigo (Chronic) L30.4 abdominal wall skin crease intertrigo Recent weight loss (Chronic) R63.4 about 100 lbs Abdominal panniculus, symptomatic (Chronic) E65 COPD (chronic obstructive pulmonary disease) (Chronic) J44.9 History of DVT (deep vein thrombosis) (Chronic) Z86.718 Diastolic heart failure (Chronic) I50.30 TEX (obstructive sleep apnea) (Chronic) G47.33 Hyperlipidemia (Chronic) E78.5 Benign essential hypertension (Chronic) I10 Rheumatoid arthritis (Chronic) M06.9 Cardiomyopathy (Chronic) I42.9 Super obesity (Chronic) E66.9 WPW (Rstrc-Rbezhdcmx-Tngem syndrome) (Chronic) I45.6 Atrial fibrillation (Chronic) I48.91 Arthritis M19.90 Cyst of breast N60.09 History of ulceration Z87.898 Osteoarthritis M19.90 Pancreatitis K85.90 Ncequ-Myfuacbsx-Nkgxh (WPW) syndrome I45.6 Allergies latex Allergy (Verified 03/15/20 19:34) Rash warfarin sodium [From Coumadin] Adverse Reaction (Verified 03/15/20 19:34) Other caused 2 holes in lungs and chest, advised to never take again Home Medications: Ambulatory Orders Medication Instructions Recorded Bupropion HCl 100 mg PO DAILY 05/02/14 Nitroglycerin (INPATIENT USE) 0.4 mg SUBLINGUAL Q5M PRN 07/17/14 [Nitrostat] Cholecalciferol (Vitamin D3) 3,000 unit PO DAILY 05/08/18 [Vitamin D3] Cyanocobalamin (Vitamin B-12) 1,000 mcg PO DAILY 05/08/18 [Vitamin B-12] Multivitamin with Minerals 2 ea PO DAILY 05/08/18 [Multiple Vitamin] Amiodarone HCl 400 mg PO DAILY 11/05/18 Sertraline HCl [Zoloft] 50 mg PO BID 11/05/18 levothyroxine 25 mcg tablet 25 mcg PO DAILY 05/22/19 Docusate Sodium [Colace] 100 mg PO BID #0 cap 10/23/19 Acetaminophen [Tylenol Tablet] 650 mg PO Q4H PRN PRN tab 11/05/19 Diazepam [Valium] 5 mg PO 4X/DAY PRN PRN #30 tab 11/05/19 Ipratropium/Albuterol Sulfate 3 ml INHALATION Q4H PRN ampul.neb 11/05/19 [Duoneb] Nystatin Powder [Mycostatin Powder] 1 applic TOPICAL TID bottle 11/05/19 Multivit,Stress Formula/Zinc 1 ea PO DAILY 11/18/19 [Stress Formula with Zinc Tab] Ondansetron HCl [Zofran] 4 mg PO Q6H PRN 11/18/19 Pantoprazole Sodium [Protonix] 40 mg PO BID tab 11/23/19 carvedilol 3.125 mg tablet 3.125 mg PO BID #60 tab 01/05/20 Surgical History: Surgical History (Last Reviewed 07/19/19 @ 22:[address] Anthony Pisano MD) History of ventral hernia repair (Chronic) Z98.890, Z87.19 with mesh in last [address] [facility] Presence of implantable cardioverter-defibrillator (ICD) (Chronic) Z95.810 History of radiofrequency ablation (RFA) procedure for cardiac arrhythmia (Chronic) Z98.890 2007 @ [facility] per Dr. Lange, 2009 @ [facility] for WPW with success. History of left heart catheterization (Chronic) Onset Date: 11/08/18 Z98.890 History of cardiac radiofrequency ablation Z98.890 1998, History of cholecystectomy Z90.49 History of gastric surgery Z98.890 Surgical History: cholecystectomy, herniorrhaphy, - - Cardiac ablation x 2, Defib placement, Cholecystectomy, LLE surgery s/p trauma w/ hardware removal later, gastric sleeve surgery Psychiatric History: Anxiety, Depression Smoking Status: Never smoker Alcohol: None Drugs: None - *Family History Maternal Family History: Family History (Last Reviewed 07/19/19 @ 22:[address] Anthony Pisano MD) Sister Arthritis Brother Psychiatric care History Items: Heart Disease, Hypertension Paternal Family History: Family History (Last Reviewed 07/19/19 @ 22:[address] Anthony Pisano MD) Sister Arthritis Brother Psychiatric care History Items: Heart Disease, Hypertension Review of Systems Constitutional: Reports: Malaise. Denies: Anorexia, Chills, Fever, Weakness Eyes: Denies: Blurred vision, Double vision, Drainage, Redness HEENT: Denies: Difficulty Hearing, Dysphasia, Ear Pain, Eye Pain, Nasal bleeding, Sore Throat Cardiovascular: Denies: Chest Pain, Chest Pressure, Edema, Heaviness, Palpitations, Syncope Respiratory: Denies: Cough, Pleuritic Pain, Shortness of Breath, Sputum production, Wheezing Gastrointestinal: Reports: Abdominal Pain. Denies: Constipation, Diarrhea, Nausea, Vomiting Genitourinary: Denies: Dysuria, Frequency, Hematuria Musculoskeletal: Denies: Arm Pain, Back Pain, Foot Pain Skin: Denies: Dryness, Rash Neurological: Denies: Balance problems, Blurred vision, Double vision, Slurred speech, Confusion, Headaches Psychiatric: Reports: Depression. Denies: Anxiety Endocrine: Denies: Change in Body Habitus, Polydipsia, Polyuria VTE Information - Inpt Only VTE Present on Admission: No VTE Mechan Device Prophylaxis: None VTE Pharm Prophylaxis ordered?: Yes Patient Problems: Active and Suspected Problems (Last Updated 03/16/20 @ 00:[address] Nahun Ojeda MD) Septic shock (Acute) Abdominal wall cellulitis (Acute) - Physical Exam Vitals/I&O's: Vital Signs Temp Pulse Resp BP Pulse Ox 97.5 F L 57 L 25 H 80/54 L 96 03/15/20 23:06 03/15/20 23:06 03/15/20 23:06 03/16/20 00:16 03/15/20 23:06 Oxygen Flow Rate (L/min) 2 Oxygen Delivery Method Nasal Cannula Weight: 454 lb 13.018 oz Body Mass Index (BMI) 73.4 Intake and Output for Last 24 Hours 03/14/20 03/15/20 03/16/20 23:59 23:59 23:59 Intake Total 3322.65 / 3322.65 Balance 3322.65 / 3322.65 General: Alert, Oriented x3, Cooperative, No apparent distress HEENT: Atraumatic, PERRLA, EOMI, Normocephalic Oral: Moist Mucosa, No Gingival or Mucosal Lesions/ Ulcerations Neck: Supple, No JVD, Negative Carotid Bruits, Trachea Midline, Thyroid Normal Size and Texture Lungs: Clear to auscultation, No rhonchi, No wheeze, No rales, Diminished, - Cardiovascular: Regular rate, Regular Rhythm, Normal S1, Normal S2, PMI Normal Abdomen: Bowel Sounds Present, Soft, Non Tender, Non-Distended, No Hepato- splenomegaly, Obese, - - Lower abdomen: Healing scar just below the umbilicus, very small wound with surrounding significant erythema and edema. Morbidly obese. Extremities: No clubbing, No cyanosis, Edema Skin: No rashes, Ulcer/ Wound Lymphatic: No Cervical, Supraclavicular, or Inguinal Adenopathy Neurological: Cranial nerves II-XII grossly intact, Motor Exam 5/5 strength throughout Psych/Mental Status: Normal Affect, Appropriate, Alert and oriented to time, place, person, mood and affect Laboratory Results 03/15/20 20:00: WBC 11.3 H, RBC 3.24 L, Hgb 9.6 L, Hct 31.7 L, MCV 97.8 H, MCH 29.6, MCHC 30.3 L, RDW Std Deviation 57.2 H, RDW Coeff of Florina 15.9 H, Plt Count 140 L, MPV 10.9, Immature Gran % (Auto) 1.200 H, Neut % (Auto) 93.9 H, Lymph % (Auto) 0.9 L, Perry % (Auto) 3.6, Eos % (Auto) 0.1, Baso % (Auto) 0.3, Absolute Neuts (auto) 10.6 H, Absolute Lymphs (auto) 0.10 L, Nucleated RBC % 0, Differential Comment 03/15/20 20:00: Sodium 136, Potassium 4.8, Chloride 108 H, Carbon Dioxide 23.0, Anion Gap 5, BUN 46 H, Creatinine 2.11 H, Estim Creat Clear Calc 33.60, Est GFR (MDRD) Af Amer 41 L, Est GFR (MDRD) Non-Af 34 L, BUN/Creatinine Ratio 21.8 H, Glucose 131 H, Calcium 8.3 L, Total Bilirubin 0.90, AST 11 L, ALT 17, Alkaline Phosphatase 105, Total Protein 7.0, Albumin 3.1 L, Globulin 3.9, Albumin/Globulin Ratio 0.8 L 03/15/20 20:00: Lactic Acid 2.3 H* Current Medications Norepinephrine Bitartrate 8 mg (/ Sodium Chloride) 250 mls @ 9.375 mls/hr CONT INF .[id number] [facility]; Protocol Last Admin: 03/16/20 00:16 Dose: 5 mcg/min, 9.4 mls/hr Documented by: Sodium Chloride () 1,000 mls @ 999 mls/hr IV .Q1H1M ONE Stop: 03/16/20 01:01 Assessment/Plan All Active Problems (Last Updated 03/16/20 @ 00:[address] Nahun Ojeda MD) Septic shock (Acute) Abdominal wall cellulitis (Acute) This is a 60 years old male patient presented to the emergency room because of not feeling well, lower abdominal pain and redness in context of recent history of lower abdominal panniculitis status post colectomy back on September, and he was found to have septic shock and he is being admitted to ICU. #1 septic shock: Secondary to #2. Patient received a total of 4 L of IV fluids, blood pressure remained in the 80s systolic. Patient's blood pressure does run low around 90 systolic. Lactic acid is elevated. Patient was started on IV Levophed drip. Plan: Admit to ICU, IV fluids, continue IV Levophed drip, blood culture, urinalysis, urine culture, start IV vancomycin and Zosyn, critical care consult, repeat CBC and BMP tomorrow morning, Tylenol as needed, Zofran as needed, PT OT evaluation and treatment. #2 acute lower abdominal wall cellulitis/panniculitis: In context of history of panniculitis status post panniculectomy and excisional debridement back on September, followed by admission for disruptive shock on October,. Wound culture on December, revealed bacillus species. Another wound culture on October, revealed Enterobacter cloacae, Enterobacter faecalis and Proteus mirabilis, sensitive to reviewed. Plan as above, IV vancomycin and Zosyn, consult Dr. Pisano. #3 stage III chronic kidney disease: Creatinine has been fluctuating since October, it has been up to 12 mg/dL, came down to 1.17 on November,. Admission creatinine is 2.21 which is up from the last blood work but it has been close to his baseline since October. Plan: IV fluids, IV vasopressors, avoid nephrotoxic drugs, input output chart, repeat BMP tomorrow morning. #4 paroxysmal atrial fibrillation: Rate is controlled, continue amiodarone for rate control as well as Coreg, patient is not on anticoagulation. #5 history of cardiomyopathy/status post ICD: Clinically stable, no acute CHF. Continue Coreg, hold Lasix for now because of low blood pressure. #6 chronic anemia: Hemoglobin and hematocrit are stable at baseline, plan to monitor. #7 hypothyroidism: Continue levothyroxine. #8 COPD: Plan for albuterol as needed, DuoNeb every 6 hours, incentive spirometer. #9 anxiety and depression: Continue bupropion, Valium and Zoloft. #10 DVT prophylaxis: Subcu heparin. This note was generated with [employer] dictation software. It may contain incorrect words, spelling, and punctuation that were not noted in checking the note before signing. Inpatient E&M: 26226 Init Hosp L3
--- NOTE | 2020-03-16 00:30 | NURSING ---
PER DR TRAN, ALLOW LEVOPHED TO INFUSE FOR 30M PRIOR TO TITRATION.
[2020-03-16 00:56] LABS: Lactic Acid 1.5 mmol/L (0.4-1.9)
[2020-03-16] MEDS: 0.9% Normal Saline 1,000 ML 100 ML IV ×2 (01:21→10:46)
[2020-03-16 04:20] LABS: Absolute Neutrophil Count 10.3 X10^3/uL (2.0-7.7); Basophil# 0.02 X10^3/uL; Basophil% 0.2 % (0-1); Eosinophil# 0.02 X10^3/uL; Eosinophils% 0.2 % (0-5); Hematocrit 33.1 % (40-54); Hemoglobin 10.2 g/dL (13.0-16.5); Lymphocyte % 1.8 % (19-41); Mean Corp Hgb Conc 30.8 g/dL (32-36); Mean Corpuscular Volume 97.4 fL (80-94); Mean Platelet Vol. 10.9 fl (6.2-12.0); Monocyte# 0.38 X10^3/uL; Monocyte% 3.4 % (0-10); NRBC Flagged by Analyzer 0 % (0-5); Neutrophil # 10.29 X10^3/uL (2.7-7.7); Neutrophil % 93.4 % (47-70); POSITIVE DIFFERENTIAL YES; Platelet Count 157 K/mm3 (150-450); RBC Distribution Width CV 16.1 % (11.6-14.6); RBC Distribution Width SD 56.9 fl (35.1-43.9)
[2020-03-16 04:22] LABS: Differential Indicated SCAN CRITERIA MET
[2020-03-16 04:32] LABS: Anion Gap 7 (5-15); BUN 47 mg/dL (7-18); BUN/Creat Ratio 23.4 RATIO (10-20); Chloride 107 mmol/L (98-107); Creatinine, Serum 2.01 mg/dL (0.70-1.30); EST Glomerular Filtration Rate 36 mL/min (>60); Est Glom Filt Rate - Afr Amer 44 mL/min (>60); Estimated Creatinine Clearance 35.27 ml/min; Glucose 103 mg/dL (74-106); Potassium 4.8 mmol/L (3.5-5.1); Sodium Level 135 mmol/L (136-145)
[2020-03-16 04:42] LABS: Differential Comment SCANNED; Polychromasia RARE
--- NOTE | 2020-03-16 05:00 | PCM.RX.CS ---
Consult Pharmacy has been consulted to manage selected antiobiotic: Vancomycin Type of Consult: New start Suspected Infection: Sepsis Labs: Sodium 135 mmol/L (136-145) L 03/16/20 04:10 Potassium 4.8 mmol/L (3.5-5.1) 03/16/20 04:10 Chloride 107 mmol/L (98-107) 03/16/20 04:10 Carbon Dioxide 21.0 mmol/L (21.0-32.0) 03/16/20 04:10 Anion Gap 7 (5-15) 03/16/20 04:10 BUN 47 mg/dL (7-18) H 03/16/20 04:10 Creatinine 2.01 mg/dL (0.70-1.30) H 03/16/20 04:10 Est GFR (MDRD) Af Amer 44 mL/min (>60) L 03/16/20 04:10 Est GFR (MDRD) Non-Af 36 mL/min (>60) L 03/16/20 04:10 BUN/Creatinine Ratio 23.4 RATIO (10-20) H 03/16/20 04:10 Glucose 103 mg/dL (74-106) 03/16/20 04:10 Weight used for dosin kg Estimated Creatinine Clearance: 66.7 Goal Trough: 15-20 mcg/mL Pharmacy Plan for Drug Dosing: Pharmacy Service will continue to monitor and adjust dosing as required. Medications Vancomycin HCl 1,500 mg/ (Sodium Chloride) 530 mls @ 250 mls/hr IV Q12H MATHEUS Discontinued Medications Vancomycin HCl 2,000 mg/ (Sodium Chloride) 540 mls @ 250 mls/hr IV X1 ONE Stop: 03/15/20 22:09 Last Admin: 03/15/20 22:41 Dose: Infused Documented by: Follow-Up Labs: Trough Vancomycin Labs to be done on [date and time ordered]: 03/17 @ 1030
[2020-03-16] MEDS: Levothyroxine 25 MCG TABLET PO (05:16)
[2020-03-16] MEDS: TITRATION PARAMETER CHANGE 1 EACH IV (06:34)
[2020-03-16] MEDS: Acetaminophen 325 MG Tablet 650 MG PO (07:08)
[2020-03-16] MEDS: Ipratropium/Albuterol Sulfate 3 ML AMPUL.NEB INHALATION ×3 (07:28→19:39)
--- NOTE | 2020-03-16 08:34 | CASEMGMT ---
Medical Power of Library Specialist form with Living Will provision initialed, has been scanned into summary tab of e-chart. Brittni Gold is listed as pt's Medical POA. DARION Garrett
--- NOTE | 2020-03-16 09:18 | PCM.CON.CC ---
Problem List (1) Septic shock Status: Acute (2) Abdominal wall cellulitis Status: Acute (3) Morbid obesity Status: Chronic (4) Open wound, abdominal wall, lateral Status: Chronic (5) History of ventral hernia repair Status: Chronic Comment: with mesh in last [address] [facility] (6) Lymphedema Status: Chronic Comment: painful lymphedema lower abdominal wall (7) Panniculitis Status: Chronic (8) Presence of implantable cardioverter-defibrillator (ICD) Status: Chronic (9) History of radiofrequency ablation (RFA) procedure for cardiac arrhythmia Status: Chronic Comment: [address] @ [facility] per Dr. Lange, 2009 @ [facility] for WPW with success. (10) History of left heart catheterization Status: Chronic (11) DDD (degenerative disc disease), lumbosacral Status: Chronic (12) Radiculopathy of lumbosacral region Status: Chronic (13) Spondylosis of lumbosacral region without myelopathy or radiculopathy Status: Chronic (14) COPD (chronic obstructive pulmonary disease) Status: Chronic (15) Anxiety and depression Status: Chronic (16) History of DVT (deep vein thrombosis) Status: Chronic (17) TEX (obstructive sleep apnea) Status: Chronic (18) Hyperlipidemia Status: Chronic Qualifiers: Hyperlipidemia type: unspecified Qualified Code(s): E78.5 - Hyperlipidemia, unspecified (19) Benign essential hypertension Status: Chronic (20) Rheumatoid arthritis Status: Chronic (21) dilated right ventricle Status: Chronic (22) Cardiomyopathy Status: Chronic Qualifiers: Cardiomyopathy type: dilated Qualified Code(s): I42.0 - Dilated cardiomyopathy (23) Super obesity Status: Chronic (24) WPW (Xwbjj-Okbafvzfo-Hycvl syndrome) Status: Chronic Reason for Consult Date of Consultation: 03/16/20 Reason for Consultation: Septic shock History of Present Illness: The patient is a 60 year old M, with past medical history listed below, who presented to [facility] on 03/15/2020 secondary to progressive fatigue and pain in his abdomen. Patient stated that he has had cellulitis previously and felt like this was similar. Patient reportedly had taken 2 doses of antibiotics at home, but the pain became more intense, so came to the ER for evaluation. Patient had reported no fevers, but EMS had reported a fever on presentation. Patient denied any associated nausea, vomiting, diarrhea or chest pain. No cough or respiratory distress is been reported. Patient did recently have a panniculectomy by Dr. Pisano and felt that it was healing well. On presentation to the ER, patient was noted to be 94% on room air. Patient did have significant abdominal wall erythema with warmness to the touch. Laboratory work-up showed a leukocytosis of 11.3 with a relative anemia of 9.6 and thrombocytopenia of 140. BUN and creatinine were elevated at 46/2.11 and lactate was elevated at 2.3. Liver enzymes were within normal limits. Patient received 30 cc/kg IV fluid bolus, but continued to have marginal blood pressure. Patient was started on Levophed and an attempt at a right IJ was unsuccessful. Patient was transferred to the intensive care unit for further evaluation. Since being in the intensive care unit, patient states he feels subjectively improved compared to previous. Patient still has significant tenderness of the abdomen, but feels this is improved. Patient is not reporting any respiratory distress. Patient does state that he ambulates at baseline with the assistance of a walker and has not noted any significant lower extremity edema. Patient reportedly is to have a repeat panniculectomy in early March and is hoping to proceed with the surgery. Patient does carry a diagnosis of COPD, but is unaware of the severity of his disease. Patient does have an extensive cardiac history, but feels that his cardiac function has been at its baseline recently. Review of systems otherwise negative from a constitutional, HEENT, respiratory, cardiovascular, GI, genitourinary, musculoskeletal, skin, neurologic, psychiatric and hematologic system unless stated above. Past Medical History Past Medical History (Chronic Problems): Chronic Problems (Last Updated 03/16/20 @ 00:[address] Nahun Ojeda MD) Ulcer of abdomen wall with fat layer exposed (Chronic) Morbid obesity (Chronic) Open wound, abdominal wall, lateral (Chronic) History of ventral hernia repair (Chronic) with mesh in last [address] [facility] Lumbar back pain (Chronic) from weight of massive abdominal panniculus Ventral hernia (Chronic) laparoscopic repair 2 years ago with mesh Lymphedema (Chronic) painful lymphedema lower abdominal wall Intertrigo (Chronic) abdominal wall skin crease intertrigo Recent weight loss (Chronic) about 100 lbs Panniculitis (Chronic) Abdominal panniculus, symptomatic (Chronic) Presence of implantable cardioverter-defibrillator (ICD) (Chronic) History of radiofrequency ablation (RFA) procedure for cardiac arrhythmia (Chronic) [address] [facility] per Dr. Lange, 2009 @ [facility] for WPW with success. 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) Rotator cuff tear (Chronic) COPD (chronic obstructive pulmonary disease) (Chronic) Anxiety and depression (Chronic) History of DVT (deep vein thrombosis) (Chronic) Diastolic heart failure (Chronic) TEX (obstructive sleep apnea) (Chronic) Hyperlipidemia (Chronic) Benign essential hypertension (Chronic) Rheumatoid arthritis (Chronic) dilated right ventricle (Chronic) Cardiomyopathy (Chronic) Super obesity (Chronic) WPW (Jswua-Nirwdkqpy-Nbexf syndrome) (Chronic) Atrial fibrillation (Chronic) Medical History: Medical History (Last Updated 03/16/20 @ 00:[address] Nahun Ojeda MD) Lumbar back pain (Chronic) M54.5 from weight of massive abdominal panniculus Ventral hernia (Chronic) K43.9 laparoscopic repair 2 years ago with mesh Lymphedema (Chronic) I89.0 painful lymphedema lower abdominal wall Intertrigo (Chronic) L30.4 abdominal wall skin crease intertrigo Recent weight loss (Chronic) R63.4 about 100 lbs Abdominal panniculus, symptomatic (Chronic) E65 COPD (chronic obstructive pulmonary disease) (Chronic) J44.9 History of DVT (deep vein thrombosis) (Chronic) Z86.718 Diastolic heart failure (Chronic) I50.30 TEX (obstructive sleep apnea) (Chronic) G47.33 Hyperlipidemia (Chronic) E78.5 Benign essential hypertension (Chronic) I10 Rheumatoid arthritis (Chronic) M06.9 Cardiomyopathy (Chronic) I42.9 Super obesity (Chronic) E66.9 WPW (Auvmz-Lbuugqxsp-Nqnmj syndrome) (Chronic) I45.6 Atrial fibrillation (Chronic) I48.91 Arthritis M19.90 Cyst of breast N60.09 History of ulceration Z87.898 Osteoarthritis M19.90 Pancreatitis K85.90 Gbvtm-Ieqfxzqdf-Wjcfw (WPW) syndrome I45.6 Allergies latex Allergy (Verified 03/15/20 19:34) Rash warfarin sodium [From Coumadin] Adverse Reaction (Verified 03/15/20 19:34) Other caused 2 holes in lungs and chest, advised to never take again Home Medications: Ambulatory Orders Medication Instructions Recorded Bupropion HCl 100 mg PO DAILY 05/02/14 Nitroglycerin (INPATIENT USE) 0.4 mg SUBLINGUAL Q5M PRN 07/17/14 [Nitrostat] Cholecalciferol (Vitamin D3) 3,000 unit PO DAILY 05/08/18 [Vitamin D3] Cyanocobalamin (Vitamin B-12) 1,000 mcg PO DAILY 05/08/18 [Vitamin B-12] Multivitamin with Minerals 2 ea PO DAILY 05/08/18 [Multiple Vitamin] Amiodarone HCl 400 mg PO DAILY 11/05/18 Sertraline HCl [Zoloft] 50 mg PO BID 11/05/18 levothyroxine 25 mcg tablet 25 mcg PO DAILY 05/22/19 Docusate Sodium [Colace] 100 mg PO BID #0 cap 10/23/19 Acetaminophen [Tylenol Tablet] 650 mg PO Q4H PRN PRN tab 11/05/19 Diazepam [Valium] 5 mg PO 4X/DAY PRN PRN #30 tab 11/05/19 Ipratropium/Albuterol Sulfate 3 ml INHALATION Q4H PRN ampul.neb 11/05/19 [Duoneb] Nystatin Powder [Mycostatin Powder] 1 applic TOPICAL TID bottle 11/05/19 Multivit,Stress Formula/Zinc 1 ea PO DAILY 11/18/19 [Stress Formula with Zinc Tab] Ondansetron HCl [Zofran] 4 mg PO Q6H PRN 11/18/19 Pantoprazole Sodium [Protonix] 40 mg PO BID tab 11/23/19 carvedilol 3.125 mg tablet 3.125 mg PO BID #60 tab 01/05/20 Surgical History: Surgical History (Last Reviewed 07/19/19 @ 22:[address] Anthony Pisano MD) History of ventral hernia repair (Chronic) Z98.890, Z87.19 with mesh in last [address] [facility] Presence of implantable cardioverter-defibrillator (ICD) (Chronic) Z95.810 History of radiofrequency ablation (RFA) procedure for cardiac arrhythmia (Chronic) Z98.890 [address] [facility] per Dr. Lange, 2009 @ [facility] for WPW with success. History of left heart catheterization (Chronic) Onset Date: 11/08/18 Z98.890 History of cardiac radiofrequency ablation Z98.890 1998, History of cholecystectomy Z90.49 History of gastric surgery Z98.890 Surgical History: cholecystectomy, herniorrhaphy, - - Cardiac ablation x 2, Defib placement, Cholecystectomy, LLE surgery s/p trauma w/ hardware removal later, gastric sleeve surgery Psychiatric History: Anxiety, Depression Smoking Status: Never smoker Alcohol: None Drugs: None - *Family History Maternal Family History: Family History (Last Reviewed 07/19/19 @ 22:[address] Anthony Pisano MD) Sister Arthritis Brother Psychiatric care History Items: Heart Disease, Hypertension Paternal Family History: Family History (Last Reviewed 07/19/19 @ 22:[address] Anthony Pisano MD) Sister Arthritis Brother Psychiatric care History Items: Heart Disease, Hypertension Review of Systems Comment: See HPI Patient Problems: Active and Suspected Problems (Last Updated 03/16/20 @ 00:[address] Nahun Ojeda MD) Septic shock (Acute) Abdominal wall cellulitis (Acute) Objective: All imaging was personally reviewed. Agree with formal interpretation. Chest x-ray shows blunting of the left lower lobe, but this may be a cardiac silhouette, not an effusion or infiltrate. Patient did have a heart catheterization completed in October 2018 showing an EF of 15%, but normal coronary arteries. LVEDP at that time was 17 mmHg and previous imaging has shown RV dilation. - Physical Exam Vitals/I&O's: Vital Signs Temp Pulse Resp BP Pulse Ox 36.6 C 66 15 117/60 97 03/16/20 04:00 03/16/20 07:00 03/16/20 07:00 03/16/20 07:00 03/16/20 07:00 Oxygen Flow Rate (L/min) 2 Oxygen Delivery Method Room Air Weight: 206.3 kg Body Mass Index (BMI) 73.4 Intake and Output for Last 24 Hours 03/14/20 03/15/20 03/16/20 23:59 23:59 23:59 Intake Total 3322.65 / 3322.65 1483.02 / 1483.02 Output Total 275 / 275 Balance 3322.65 / 3322.65 1208.02 / 1208.02 General: Alert, Oriented x3, Cooperative, No apparent distress, - - Morbidly obese. Speaking in full sentences. HEENT: Atraumatic, PERRLA, EOMI, Normocephalic, - - No scleral icterus or injection noted Oral: Moist Mucosa, No Gingival or Mucosal Lesions/ Ulcerations, - - Crowded posterior pharynx. Macroglossia appreciated. Neck: Supple, No Nodes, Trachea Midline, - - No hematoma noted at IV site attempt. Unable to assess JVD secondary to body habitus Lungs: No rhonchi, No wheeze, No rales, Diminished Cardiovascular: Regular rate, Regular Rhythm, Normal S1, Normal S2, No murmurs, No rub noted, No Gallop, - - ICD palpable Abdomen: Bowel Sounds Present, Soft, Tender - Palpation of the inferior pannus with some warmth tracking up the left abdomen Extremities: No clubbing, No cyanosis, Edema, - - Venous stasis changes bilateral lower extremities Skin: - - Significant erythema and warmth noted of the inferior pannus with tracking up the left side. Small 2.6 cm opening of previous surgical site also noted. Unable to palpate fluctuance or crepitus Musculoskeletal: No Tenderness to Palpation of Joints or Extremities Lymphatic: No Cervical, Supraclavicular, or Inguinal Adenopathy Neurological: Cranial nerves II-XII grossly intact, Neuro grossly intact, Motor Exam 5/5 strength throughout Psych/Mental Status: Alert and oriented to time, place, person, mood and affect Laboratory Results 03/15/20 20:00: WBC 11.3 H, RBC 3.24 L, Hgb 9.6 L, Hct 31.7 L, MCV 97.8 H, MCH 29.6, MCHC 30.3 L, RDW Std Deviation 57.2 H, RDW Coeff of Florina 15.9 H, Plt Count 140 L, MPV 10.9, Immature Gran % (Auto) 1.200 H, Neut % (Auto) 93.9 H, Lymph % (Auto) 0.9 L, [place] % (Auto) 3.6, Eos % (Auto) 0.1, Baso % (Auto) 0.3, Absolute Neuts (auto) 10.6 H, Absolute Lymphs (auto) 0.10 L, Nucleated RBC % 0, Differential Comment 03/15/20 20:00: Sodium 136, Potassium 4.8, Chloride 108 H, Carbon Dioxide 23.0, Anion Gap 5, BUN 46 H, Creatinine 2.11 H, Estim Creat Clear Calc 33.60, Est GFR (MDRD) Af Amer 41 L, Est GFR (MDRD) Non-Af 34 L, BUN/Creatinine Ratio 21.8 H, Glucose 131 H, Calcium 8.3 L, Total Bilirubin 0.90, AST 11 L, ALT 17, Alkaline Phosphatase 105, Total Protein 7.0, Albumin 3.1 L, Globulin 3.9, Albumin/Globulin Ratio 0.8 L 03/15/20 20:00: Lactic Acid 2.3 H* 03/16/20 00:20: Lactic Acid 1.5 03/16/20 04:10: WBC 11.0, RBC 3.40 L, Hgb 10.2 L, Hct 33.1 L, MCV 97.4 H, MCH 30.0, MCHC 30.8 L, RDW Std Deviation 56.9 H, RDW Coeff of Florina 16.1 H, Plt Count 157, MPV 10.9, Immature Gran % (Auto) 1.000 H, Neut % (Auto) 93.4 H, Lymph % (Auto) 1.8 L, [place] % (Auto) 3.4, Eos % (Auto) 0.2, Baso % (Auto) 0.2, Absolute Neuts (auto) 10.3 H, Absolute Lymphs (auto) 0.20 L, Nucleated RBC % 0, Differential Comment SCANNED, Polychromasia RARE 03/16/20 04:10: Sodium 135 L, Potassium 4.8, Chloride 107, Carbon Dioxide 21.0, Anion Gap 7, BUN 47 H, Creatinine 2.01 H, Estim Creat Clear Calc 35.27, Est GFR (MDRD) Af Amer 44 L, Est GFR (MDRD) Non-Af 36 L, BUN/Creatinine Ratio 23.4 H, Glucose 103, Calcium 8.0 L Clinical Impression(s) from Imaging Studies Chest X-Ray 03/16/20 00:02 IMPRESSION: There is moderate cardiac enlargement There is prominence of the pulmonary hilar arteries and peripheral pulmonary arteries, consistent with congestive heart failure (CHF). There is no evidence of pneumothorax. Electronically Signed: Wolfgang Yu, at 2:21 EST Tel , Service support , Current Medications Acetaminophen (Acetaminophen 325 Mg Tablet) 650 mg PO Q6H PRN PRN PRN Reason: Pain Score 1-10/Temp > 100.7 F Last Admin: 03/16/20 07:08 Dose: 650 mg Documented by: Albuterol Sulfate (Albuterol 2.5 Mg/3 Ml Vial.Neb.) 2.5 mg INHALATION Q4H PRN PRN PRN Reason: Shortness of breath, wheezing Albuterol/Ipratropium (Ipratropium/Albuterol Sulfate 3 Ml Ampul.Neb) 3 ml INHALATION Q6H.RT [facility] Last Admin: 03/16/20 07:28 Dose: 3 ml Documented by: Amiodarone HCl (Amiodarone 200 Mg Tablet) 400 mg PO DAILY MATHEUS Bupropion HCl (Bupropion 100 Mg Tablet) 100 mg PO DAILY [facility] Diazepam (Diazepam 5 Mg Tablet) 5 mg PO 4X/DAY PRN PRN PRN Reason: SPASMS Docusate Sodium (Docusate Sodium 100 Mg Capsule) 100 mg PO BID [facility] Heparin Sodium (Porcine) (Heparin Injection (Vial) 5,000 Unit/Ml Vial) 5,000 unit SC Q12 [facility] Norepinephrine Bitartrate 8 mg (/ Sodium Chloride) 250 mls @ 9.375 mls/hr CONT INF .[id number] MATHEUS; Protocol Last Titration: 03/16/20 07:00 Dose: 2 mcg/min, 3.8 mls/hr Documented by: Sodium Chloride () 1,000 mls @ 100 mls/hr IV .Q10H MAT[facility]US Last Admin: 03/16/20 01:21 Dose: 100 mls/hr Documented by: Piperacillin Sod/Tazobactam (Sod 3.375 gm/ Sodium Chloride) 50 mls @ 12.5 mls/hr IV Q8 [facility] Last Admin: 03/16/20 05:16 Dose: 12.5 mls/hr Documented by: Vancomycin HCl 750 mg/ Sodium (Chloride) 265 mls @ 250 mls/hr IV RX TO DOSE PRN; Protocol PRN Reason: RX TO DOSE Sodium Chloride () 250 mls @ 15 mls/hr IV .[id number] PRN PRN Reason: Saline Flush Last Admin: 03/16/20 05:16 Dose: 15 mls/hr Documented by: Sodium Chloride () 250 mls @ 15 mls/hr IV .[id number] PRN PRN Reason: Additional IVPB Infusion Vancomycin HCl 1,500 mg/ (Sodium Chloride) 530 mls @ 250 mls/hr IV Q12H [facility] Levothyroxine Sodium (Levothyroxine 25 Mcg Tablet) 25 mcg PO DAILY@0600 MAHTEUS Last Admin: 03/16/20 05:16 Dose: 25 mcg Documented by: Morphine Sulfate (Morphine 2 Mg/Ml Syringe) 2 mg IV Q3H PRN PRN PRN Reason: Pain Score 6-10 Nystatin (Nystatin Powder 15gm Bottle) 1 applic TOPICAL TID MATHEUS; Protocol Ondansetron HCl (Ondansetron 4 Mg/2 Ml Vial) 4 mg IV Q8H PRN PRN PRN Reason: NAUSEA/VOMITING Pantoprazole Sodium (Pantoprazole Sodium 40 Mg Tablet) 40 mg PO BID [facility]US Sertraline HCl (Sertraline 50 Mg Tablet) 50 mg PO BID [facility] Sodium Chloride (0.9% Saline Lock 10 Ml Syringe) 10 - 40 ml IV UD PRN PRN Reason: SALINE FLUSH Assessment/Plan Active and Suspected Problems (Last Updated 03/16/20 @ 00:[address] Nahun Ojeda MD) Septic shock (Acute) Abdominal wall cellulitis (Acute) RECOMMENDATIONS: 1. Continue empiric antibiotic therapy. Consult infectious disease 2. Await plastics evaluation 3. Hold on additional fluid resuscitation if possible 4. Wean oxygen to keep sats in the mid 90s 5. Wean Levophed as tolerated IMPRESSIONS: 1. Septic shock secondary to cellulitis/panniculitis Patient was significant warmth and erythema noted throughout the pannus. This does not appear to be venous stasis. Patient was initiated on Levophed and empiric antibiotics. Cultures are currently pending. Patient will be at risk for further complications as there does appear to be a possible concomitant fungal component. Topical antifungal will be added. Dr. Pisano to evaluate the patient. 2. Chronic kidney disease stage III Patient appears to be at his baseline at this time. Continue to monitor. Patient would be at risk for prerenal ATN, but did receive pressors and IV fluids. Avoid nephrotoxic medications if possible. Continue to monitor with BMP. 3. Chronic combined cardiomyopathy/paroxysmal A. fib Appears to be compensated at this time. We will have to watch patient closely as he does have diastolic and systolic dysfunction noted on previous interventions. Will attempt to keep saturations in the mid 90s so that fluid retention and pulmonary edema can be noted earlier. Patient currently on pressors. Would attempt to avoid maintenance fluids if possible. 4. Reported COPD/super morbid obesity/hypothyroidism/chronic anemia/anxiety/depression/decreased mobility Complicates care, management, recovery and prognosis TIME: 34 minutes critical care time spent addressing patient's septic shock, chronic kidney disease, CHF, review of all data and collaboration with care team (8 AM to 9 AM) [id number]: [id number] Critical care first hour
--- NOTE | 2020-03-16 09:45 | CASEMGMT ---
Addendum entered by Graham Esposito 03/16/20 14:13: VM received from [facility] Camryn REARDON. Audelia Sparks ([phone]) is waiver family services specialist @ [facility] and is the one to be called/notified when pt is discharged from [facility]. Original Note: RN CM TRACTOR TRAILER TRUCK DRIVER CM to room to meet with patient for initial transition planning/care coordination assessment. RN CM introduced self and role at [facility]. Pt voices understanding and consents to assessment at this time. Pt resting in bed in no distress at this time. Pt is A/O at this time and answers all questions appropriately. Care providers, pharmacy, and demographics verified/updated at this time. PCP: Dr Tim Specialists: Dr Pisano [facility], Dr Collado--nephrology, [facility]--was seeing Dr Fisher. States is considering switching to [facility], but has not done this yet. Dr Subramanian-pain mgmt, Dr Barcenas--laundry route driver. Preferred Pharmacy: [facility] Insurance: [employer] [facility], [facility] Community Plan Prescription Benefit: Yes Living Will/HPOA: Has both LW and Healthcare POA: Ex-: Brittni Gold. LNOK: Ex-, Brittni/POA Living Arrangements: Lives in one-story home w/no steps to enter. Pt able to toilet himself but has difficulty providing self-care afterwards. He manages his own appt's/medications. Has HH aides through [facility] Mon-Sat: 3 hrs/day. Does not have an aide on Sundays. Aides assist w/bathing/dressing, meal prep, home mgmt tasks, grocery shopping/errands, and picking table worker his prescriptions. Has CM through [facility]/[employer]. Used to have Camryn ([phone]) through Waiver program but since he turned 60, he now has Passport and has a new CM. He stated has not met her yet and does not know her name. Call placed to Camryn at this time. She was made aware of pt's admission to [facility]. She states Rosa Mariaport CM is now Candis Rios ([phone]), but Candis is off until 03/22. She will call this RN CM back with [employer] CM contact info of who to contact while Candis is off. Receives home-delivered meals from [employer]: 14 meals every other week. Transportation: [employer] DME: States has the following DME: shower chair, rails/grab bars, hand held shower, raised toilet seat, hospital bed, lift chair, Bipap, O2 bleed in through BIPAP @ [facility] @ 2-3 L/M through [employer], walker, medical alert. Pt states no need for further DME at this time. HHC/SNF: Hx: SNF's: [facility], [facility], and [facility]. (He states plan is to have 6 more abdominal surgeries in the future and plans to go to [facility] after each surgery) [facility] to [facility] and spoke w/Rebecca and she was made aware of pt's admission to [facility]. She confirms pt is currently active with them and is receiving SN, PT/OT. SN does daily wound care/dressing changes. She informed nursing staff of pt's admission to [facility] and they are able to take pt back when pt is discharged. She was made aware d/c plan/disposition is undetermined at this time and that CM would contact them once d/c plan is determined. Pt wishes to return home, if able, but he states, if needed, he would like to go to [facility]. CM to follow for discharge planning/needs. Pt voices no further concerns/needs at this time. Advised pt to ask for CM if any further questions/concerns/needs arise. Voices understanding. PLAN: TBD. Pt would like to return home if able, w/resumption of HHC: SN, PT/OT, and HH aides through [facility], but if SNF is needed, he would like to go to [facility]. Yo CALDWELLN RN CM
[2020-03-16] MEDS: Heparin Injection (Vial) 5,000 UNIT/ML VIAL 5000 UNIT SC (10:46)
[2020-03-16] MEDS: Pantoprazole Sodium 40 MG Tablet PO ×2 (10:47→21:23)
--- NOTE | 2020-03-16 10:56 | PCM.HP.ID ---
Problem List (1) Septic shock Status: Acute Reason for Consult: cellulitis Consulted by: Dr. Owens History of Present Illness: The patient is a 60 year old M with h/o recurrent panniculitis, presented with 2-3 days of fever, chills, spreading lower abd pain/redness. No drainage. No fever or chills, no dyspnea, no change in taste/smell. Came to ED, admitted to icu with septic shock and vanc/zosyn. Feeling better this Am. Full ROS performed and neg except as noted above. - Medical History Past Medical History (Chronic Problems): Chronic Problems (Last Updated 03/16/20 @ 00:[address] Nahun Ojeda MD) Ulcer of abdomen wall with fat layer exposed (Chronic) Morbid obesity (Chronic) Open wound, abdominal wall, lateral (Chronic) History of ventral hernia repair (Chronic) with mesh in last [address] [facility] Lumbar back pain (Chronic) from weight of massive abdominal panniculus Ventral hernia (Chronic) laparoscopic repair 2 years ago with mesh Lymphedema (Chronic) painful lymphedema lower abdominal wall Intertrigo (Chronic) abdominal wall skin crease intertrigo Recent weight loss (Chronic) about 100 lbs Panniculitis (Chronic) Abdominal panniculus, symptomatic (Chronic) Presence of implantable cardioverter-defibrillator (ICD) (Chronic) History of radiofrequency ablation (RFA) procedure for cardiac arrhythmia (Chronic) 2007 @ [facility] per Dr. Lange, 2009 @ [facility] for WPW with success. 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) Rotator cuff tear (Chronic) COPD (chronic obstructive pulmonary disease) (Chronic) Anxiety and depression (Chronic) History of DVT (deep vein thrombosis) (Chronic) Diastolic heart failure (Chronic) TEX (obstructive sleep apnea) (Chronic) Hyperlipidemia (Chronic) Benign essential hypertension (Chronic) Rheumatoid arthritis (Chronic) dilated right ventricle (Chronic) Cardiomyopathy (Chronic) Super obesity (Chronic) WPW (Crucs-Fldkvgjjt-Ipgpb syndrome) (Chronic) Atrial fibrillation (Chronic) Allergies/Adverse Reactions: Allergies latex Allergy (Verified 03/15/20 19:34) Rash warfarin sodium [From Coumadin] Adverse Reaction (Verified 03/15/20 19:34) Other caused 2 holes in lungs and chest, advised to never take again Home Medications: Ambulatory Orders Medication Instructions Recorded Bupropion HCl 100 mg PO DAILY 05/02/14 Nitroglycerin (INPATIENT USE) 0.4 mg SUBLINGUAL Q5M PRN 07/17/14 [Nitrostat] Cholecalciferol (Vitamin D3) 3,000 unit PO DAILY 05/08/18 [Vitamin D3] Cyanocobalamin (Vitamin B-12) 1,000 mcg PO DAILY 05/08/18 [Vitamin B-12] Multivitamin with Minerals 2 ea PO DAILY 05/08/18 [Multiple Vitamin] Amiodarone HCl 400 mg PO DAILY 11/05/18 Sertraline HCl [Zoloft] 50 mg PO BID 11/05/18 levothyroxine 25 mcg tablet 25 mcg PO DAILY 05/22/19 Docusate Sodium [Colace] 100 mg PO BID #0 cap 10/23/19 Acetaminophen [Tylenol Tablet] 650 mg PO Q4H PRN PRN tab 11/05/19 Diazepam [Valium] 5 mg PO 4X/DAY PRN PRN #30 tab 11/05/19 Ipratropium/Albuterol Sulfate 3 ml INHALATION Q4H PRN ampul.neb 11/05/19 [Duoneb] Nystatin Powder [Mycostatin Powder] 1 applic TOPICAL TID bottle 11/05/19 Multivit,Stress Formula/Zinc 1 ea PO DAILY 11/18/19 [Stress Formula with Zinc Tab] Ondansetron HCl [Zofran] 4 mg PO Q6H PRN 11/18/19 Pantoprazole Sodium [Protonix] 40 mg PO BID tab 11/23/19 carvedilol 3.125 mg tablet 3.125 mg PO BID #60 tab 01/05/20 - Social History Tobacco Use: non-smoker Vital Signs Temp Pulse Resp BP Pulse Ox 97.8 F 80 22 H 117/60 98 03/16/20 04:00 03/16/20 07:28 03/16/20 07:28 03/16/20 07:00 03/16/20 07:28 Oxygen Flow Rate (L/min) 2 Oxygen Delivery Method Room Air Weight: 206.3 kg Body Mass Index (BMI) 73.4 Laboratory Tests Past 24 Hrs 03/15/20 03/15/20 03/15/20 20:00 20:00 20:00 WBC 11.3 H RBC 3.24 L Hgb 9.6 L Hct 31.7 L MCV 97.8 H MCH 29.6 MCHC 30.3 L RDW Std Deviation 57.2 H RDW Coeff of Florina 15.9 H Plt Count 140 L MPV 10.9 Immature Gran % (Auto) 1.200 H Neut % (Auto) 93.9 H Lymph % (Auto) 0.9 L [place] % (Auto) 3.6 Eos % (Auto) 0.1 Baso % (Auto) 0.3 Absolute Neuts (auto) 10.6 H Absolute Lymphs (auto) 0.10 L Nucleated RBC % 0 Differential Comment Polychromasia Sodium 136 Potassium 4.8 Chloride 108 H Carbon Dioxide 23.0 Anion Gap 5 BUN 46 H Creatinine 2.11 H Estim Creat Clear Calc 33.60 Est GFR (MDRD) Af Amer 41 L Est GFR (MDRD) Non-Af 34 L BUN/Creatinine Ratio 21.8 H Glucose 131 H Lactic Acid 2.3 H* Calcium 8.3 L Total Bilirubin 0.90 AST 11 L ALT 17 Alkaline Phosphatase 105 Total Protein 7.0 Albumin 3.1 L Globulin 3.9 Albumin/Globulin Ratio 0.8 L 03/16/20 03/16/20 03/16/20 00:20 04:10 04:10 WBC 11.0 RBC 3.40 L Hgb 10.2 L Hct 33.1 L MCV 97.4 H MCH 30.0 MCHC 30.8 L RDW Std Deviation 56.9 H RDW Coeff of Florina 16.1 H Plt Count 157 MPV 10.9 Immature Gran % (Auto) 1.000 H Neut % (Auto) 93.4 H Lymph % (Auto) 1.8 L [place] % (Auto) 3.4 Eos % (Auto) 0.2 Baso % (Auto) 0.2 Absolute Neuts (auto) 10.3 H Absolute Lymphs (auto) 0.20 L Nucleated RBC % 0 Differential Comment SCANNED Polychromasia RARE Sodium 135 L Potassium 4.8 Chloride 107 Carbon Dioxide 21.0 Anion Gap 7 BUN 47 H Creatinine 2.01 H Estim Creat Clear Calc 35.27 Est GFR (MDRD) Af Amer 44 L Est GFR (MDRD) Non-Af 36 L BUN/Creatinine Ratio 23.4 H Glucose 103 Lactic Acid 1.5 Calcium 8.0 L Total Bilirubin AST ALT Alkaline Phosphatase Total Protein Albumin Globulin Albumin/Globulin Ratio - Other Studies Radiology: [] reviewed Other Studies: [] Route of nutrition/ use of supplements: [] Nutritional Intake: [] IV Site: [] Simon Catheter: [] - Physical Exam General: Alert, Oriented x3, Cooperative, No apparent distress HEENT: Atraumatic, PERRLA, EOMI Neck: Supple, No Nodes Lungs: Clear to auscultation, Normal air movement, Diminished Cardiovascular: Regular rate, Regular Rhythm Abdomen: Soft, Non Tender, Obese Extremities: Edema Skin: Rash Present - mild lower abd redness/pain IV Site: Peripheral, without redness Musculoskeletal: No Tenderness to Palpation of Joints or Extremities Neurological: Cranial nerves II-XII grossly intact - Assessment/Plan Antibiotics: [] Assessment/Plan: [] Active and Suspected Problems (Last Updated 03/16/20 @ 00:[address] Nahun Ojeda MD) Septic shock (Acute) Abdominal wall cellulitis (Acute) septic shock with panniculitis - Dr. Pisano to see, cont empiric vanc/zosyn. BP improved. Will follow, thank you
[2020-03-16] MEDS: Amiodarone 200 MG Tablet 400 MG PO (11:17)
[2020-03-16] MEDS: Sertraline 50 MG Tablet PO ×2 (11:17→21:24)
--- NOTE | 2020-03-16 14:54 | CHAPLAIN ---
Type of Pastoral Visit _x__ Initial Visit ___ Follow-up Visit ___ On-call Visit ___ General Patient Visit ___ Spiritual Assessment ___ Family Conference ___ Bereavement ___ Rapid Response ___ Code Blue ___ Other (describe below) Pastoral Care Referral From _x__ Patient ___ Family ___ Nurse ___ Physician ___ Website Programmer ___ Index Editor ___ Other (describe below) Sacrament/Intervention _x__ Active listening ___ Anointing ___ Buddhist ___ Bereavement ___ Communion _x__ Shahida exploration ___ _x__ Life review _x__ Prayer ___ Reconciliation ___ Sacrament of Sick _x__ Supportive presence ___ Wedding ___ Other (describe below) Pastoral Comments
[2020-03-16] MEDS: buPROPion 100 MG Tablet PO (15:29)
[2020-03-16] MEDS: Nystatin Powder 15gm Bottle 1 APPLIC TOPICAL ×2 (15:29→21:24)
--- NOTE | 2020-03-16 17:25 | PCM.PN.SRG ---
Patient Problems: Active and Suspected Problems (Last Updated 03/16/20 @ 00:[address] Nahun Ojeda MD) Septic shock (Acute) Abdominal wall cellulitis (Acute) Subjective: Patient known to me. [facility]. He has a residual ulcer right abdominal wall that is almost healed and is treated with Collagen Hydrogel dressing changes. This was the result of surgery on 10/21/19 where he underwent surgical preparation right abdominal wall with excisional debridement skin, subcutaneous tissue, and fascia necrotizing soft tissue infection (731 cm2) and abdominal panniculectomy. It was noted he was developing increasing edema to his left abdominal wall and further surgery was discussed with him to excise some of the left abdominal wall panniculus next month. However he was recently admitted to the ICU with sepsis and extensive cellulitis abdominal wall. He was started on Vancomycin and Zosyn. I was asked to evaluate this patient for surgical options for treatment. - Physical Exam Vitals/I&O's: Vital Signs Temp Pulse Resp BP Pulse Ox 99.0 F 82 18 105/70 95 03/16/20 16:00 03/16/20 17:00 03/16/20 17:00 03/16/20 17:00 03/16/20 17:00 Oxygen Flow Rate (L/min) 2 Oxygen Delivery Method Room Air Weight: 454 lb 13.018 oz Body Mass Index (BMI) 73.4 Intake and Output for Last 24 Hours 03/14/20 03/15/20 03/16/20 23:59 23:59 23:59 Intake Total 3322.65 / 3322.65 4048.47 / 4048.47 Output Total 775 / 775 Balance 3322.65 / 3322.65 3273.47 / 3273.47 General: Alert, Oriented x3 HEENT: PERRLA, EOMI Oral: Moist Mucosa Neck: Supple Abdomen: Soft, Non Tender, - - Extensive cellulitis noted on the abdominal wall. Extensive edema noted left abdominal wall. It has increased since I last saw him on 03/08/20. Skin: Ulcer/ Wound - Nonhealing ulcer right abdominal wall is stable and almost healed. Neurological: Cranial nerves II-XII grossly intact Psych/Mental Status: Normal Affect, Appropriate Laboratory Results 03/15/20 20:00: WBC 11.3 H, RBC 3.24 L, Hgb 9.6 L, Hct 31.7 L, MCV 97.8 H, MCH 29.6, MCHC 30.3 L, RDW Std Deviation 57.2 H, RDW Coeff of Florina 15.9 H, Plt Count 140 L, MPV 10.9, Immature Gran % (Auto) 1.200 H, Neut % (Auto) 93.9 H, Lymph % (Auto) 0.9 L, [place] % (Auto) 3.6, Eos % (Auto) 0.1, Baso % (Auto) 0.3, Absolute Neuts (auto) 10.6 H, Absolute Lymphs (auto) 0.10 L, Nucleated RBC % 0, Differential Comment 03/15/20 20:00: Sodium 136, Potassium 4.8, Chloride 108 H, Carbon Dioxide 23.0, Anion Gap 5, BUN 46 H, Creatinine 2.11 H, Estim Creat Clear Calc 33.60, Est GFR (MDRD) Af Amer 41 L, Est GFR (MDRD) Non-Af 34 L, BUN/Creatinine Ratio 21.8 H, Glucose 131 H, Calcium 8.3 L, Total Bilirubin 0.90, AST 11 L, ALT 17, Alkaline Phosphatase 105, Total Protein 7.0, Albumin 3.1 L, Globulin 3.9, Albumin/Globulin Ratio 0.8 L 03/15/20 20:00: Lactic Acid 2.3 H* 03/16/20 00:20: Lactic Acid 1.5 03/16/20 04:10: WBC 11.0, RBC 3.40 L, Hgb 10.2 L, Hct 33.1 L, MCV 97.4 H, MCH 30.0, MCHC 30.8 L, RDW Std Deviation 56.9 H, RDW Coeff of Florina 16.1 H, Plt Count 157, MPV 10.9, Immature Gran % (Auto) 1.000 H, Neut % (Auto) 93.4 H, Lymph % (Auto) 1.8 L, [place] % (Auto) 3.4, Eos % (Auto) 0.2, Baso % (Auto) 0.2, Absolute Neuts (auto) 10.3 H, Absolute Lymphs (auto) 0.20 L, Nucleated RBC % 0, Differential Comment SCANNED, Polychromasia RARE 03/16/20 04:10: Sodium 135 L, Potassium 4.8, Chloride 107, Carbon Dioxide 21.0, Anion Gap 7, BUN 47 H, Creatinine 2.01 H, Estim Creat Clear Calc 35.27, Est GFR (MDRD) Af Amer 44 L, Est GFR (MDRD) Non-Af 36 L, BUN/Creatinine Ratio 23.4 H, Glucose 103, Calcium 8.0 L Current Medications Acetaminophen (Acetaminophen 325 Mg Tablet) 650 mg PO Q6H PRN PRN PRN Reason: Pain Score 1-10/Temp > 100.7 F Last Admin: 03/16/20 07:08 Dose: 650 mg Documented by: Albuterol Sulfate (Albuterol 2.5 Mg/3 Ml Vial.Neb.) 2.5 mg INHALATION Q4H PRN PRN PRN Reason: Shortness of breath, wheezing Albuterol/Ipratropium (Ipratropium/Albuterol Sulfate 3 Ml Ampul.Neb) 3 ml INHALATION Q6H.RT [facility] Last Admin: 03/16/20 12:38 Dose: 3 ml Documented by: Amiodarone HCl (Amiodarone 200 Mg Tablet) 400 mg PO DAILY [facility] Last Admin: 03/16/20 11:17 Dose: 400 mg Documented by: Bupropion HCl (Bupropion 100 Mg Tablet) 100 mg PO DAILY [facility] Last Admin: 03/16/20 15:29 Dose: 100 mg Documented by: Diazepam (Diazepam 5 Mg Tablet) 5 mg PO 4X/DAY PRN PRN PRN Reason: SPASMS Docusate Sodium (Docusate Sodium 100 Mg Capsule) 100 mg PO BID [facility] Last Admin: 03/16/20 10:42 Dose: Not Given Documented by: Heparin Sodium (Porcine) (Heparin Injection (Vial) 5,000 Unit/Ml Vial) 5,000 unit SC Q12 [facility] Last Admin: 03/16/20 10:46 Dose: 5,000 unit Documented by: Norepinephrine Bitartrate 8 mg (/ Sodium Chloride) 250 mls @ 9.375 mls/hr CONT INF .[id number] [facility]; Protocol Last Titration: 03/16/20 17:00 Dose: 0 mcg/min, 0 mls/hr Documented by: Piperacillin Sod/Tazobactam (Sod 3.375 gm/ Sodium Chloride) 50 mls @ 12.5 mls/hr IV Q8 [facility] Last Admin: 03/16/20 15:29 Dose: 12.5 mls/hr Documented by: Vancomycin HCl 750 mg/ Sodium (Chloride) 265 mls @ 250 mls/hr IV RX TO DOSE PRN; Protocol PRN Reason: RX TO DOSE Sodium Chloride () 250 mls @ 15 mls/hr IV .[id number] PRN PRN Reason: Saline Flush Last Admin: 03/16/20 05:16 Dose: 15 mls/hr Documented by: Sodium Chloride () 250 mls @ 15 mls/hr IV .[id number] PRN PRN Reason: Additional IVPB Infusion Vancomycin HCl 1,500 mg/ (Sodium Chloride) 530 mls @ 250 mls/hr IV Q12H [facility] Last Infusion: 03/16/20 13:25 Dose: Infused Documented by: Levothyroxine Sodium (Levothyroxine 25 Mcg Tablet) 25 mcg PO DAILY@0600 [facility] Last Admin: 03/16/20 05:16 Dose: 25 mcg Documented by: Morphine Sulfate (Morphine 2 Mg/Ml Syringe) 2 mg IV Q3H PRN PRN PRN Reason: Pain Score 6-10 Nystatin (Nystatin Powder 15gm Bottle) 1 applic TOPICAL TID [facility]; Protocol Last Admin: 03/16/20 15:29 Dose: 1 applicatio Documented by: Ondansetron HCl (Ondansetron 4 Mg/2 Ml Vial) 4 mg IV Q8H PRN PRN PRN Reason: NAUSEA/VOMITING Pantoprazole Sodium (Pantoprazole Sodium 40 Mg Tablet) 40 mg PO BID [facility] Last Admin: 03/16/20 10:47 Dose: 40 mg Documented by: Sertraline HCl (Sertraline 50 Mg Tablet) 50 mg PO BID [facility] Last Admin: 03/16/20 11:17 Dose: 50 mg Documented by: Sodium Chloride (0.9% Saline Lock 10 Ml Syringe) 10 - 40 ml IV UD PRN PRN Reason: SALINE FLUSH Medical Necessity - Tobacco Use Smoking Status: Never smoker Assessment/Plan All Active Problems (Last Updated 03/16/20 @ 00:[address] Nahun Ojeda MD) Septic shock (Acute) Abdominal wall cellulitis (Acute) 1. Massive abdominal panniculus with panniculitis and extensive cellulitis. 2. Necrotizing soft tissue infection. 3. Recent weight loss. 4. Abdominal wall skin crease intertrigo. 5. Painful lymphedema left lower abdominal wall. 6. Lumbar back pain. 7. History of laparoscopic ventral hernia repair with mesh. 8. History of DVT. 9. Sepsis, resolving. Continue Vancomycin and Zosyn. Has panniculitis with extensive cellulitis. [facility] on [facility]20 with no evidence of infection. The amount of edema is much increased on the left when compared to his [facility] visit last week. He had surgery for necrotizing soft tissue infection in 10/12 for similar issues on the right. He is at risk for a similar scenario on the left side. When I saw him at the [facility], it was decided to proceed with excisional debridement left abdominal wall along with a panniculectomy. Tentatively was going to schedule the surgery next month in early March. There has been some improvement in the cellulitis, but with the strong antibiotics (Vancomycin and Zosyn) I was hoping for a greater response. With the increased amount of edema present, he is at risk for a necrotizing infection. Will observe closely. If further rapid improvement does not continue with the cellulitis, will proceed with operative intervention with surgical preparation left abdominal wall with excisional debridement skin, subcutaneous tissue, and fascia for necrotizing soft tissue infection along with a panniculectomy. Will dissect down to the rectus sheath fascia to evaluate the fascia for a necrotizing process. Tissue excised will be sent to Pathology for analysis to rule out carcinoma and to Microbiology for culture. A positive culture will necessitate antibiotic therapy. Will leave the wound open, and proceed with postop care with the [facility]. After discharge, he would need to go to an ECF. Will continue to monitor his progress at the [facility]. If there is a plateau in the healing process, will proceed with delayed closure with skin grafting. Anticipate increased metabolic demands from the infection. Will check a Prealbumin and encourage nutritional supplementation with protein to help the healing process. Patient was informed of the risks and complications of the procedure including alternatives to surgery. These were discussed with the patient personally. Patient voices understanding and wishes to proceed. Inpatient E&M: 07209 Subs Hosp L2 - M79.89, E65, M79.3, R63.4, L03.311, A41.9, L30.4, I89.0, M54.5, Z98.890, Z86.718
--- NOTE | 2020-03-16 19:35 | PCM.PN.HOSP ---
Patient Problems: Active and Suspected Problems (Last Updated 03/16/20 @ 00:[address] Nahun Ojeda MD) Septic shock (Acute) Abdominal wall cellulitis (Acute) Subjective: Pt states that he is feeling ok today. Better than admission. Would like Ambien for at night and some water. Vitals/I&O's: Vital Signs Temp Pulse Resp BP Pulse Ox 99.0 F 80 16 107/68 98 03/16/20 16:00 03/16/20 19:00 03/16/20 19:00 03/16/20 19:00 03/16/20 19:00 Oxygen Flow Rate (L/min) 2 Oxygen Delivery Method Room Air Weight: 206.3 kg Body Mass Index (BMI) 73.4 Intake and Output for Last 24 Hours 03/14/20 03/15/20 03/16/20 23:59 23:59 23:59 Intake Total 3322.65 / 3322.65 4048.47 / 4048.47 Output Total 900 / 900 Balance 3322.65 / 3322.65 3148.47 / 3148.47 General: Alert, Oriented x3, Cooperative, No apparent distress, Well developed, Well nourished, - - MO WM lying in bed appears comfortable HEENT: Atraumatic, Normocephalic Oral: Moist Mucosa Neck: Supple, Trachea Midline Lungs: No rhonchi, No wheeze, No rales, Diminished Cardiovascular: Regular rate, Regular Rhythm, Normal S1, Normal S2, - - distant 2/2 body habitus Abdomen: Bowel Sounds Present, Soft, Non-Distended, Obese, Tender - superficially Extremities: No clubbing, No cyanosis, Capillary Refill Less than 3 Seconds, Edema, Peripheral Pulses Normal Skin: No rashes, No breakdown, - - erythematous and edematous abdomen Musculoskeletal: No Tenderness to Palpation of Joints or Extremities, No Muscle Wasting, Arthritic Changes Neurological: Cranial nerves II-XII grossly intact, Neuro grossly intact Psych/Mental Status: Normal Affect, Appropriate Laboratory Results 03/15/20 20:00: WBC 11.3 H, RBC 3.24 L, Hgb 9.6 L, Hct 31.7 L, MCV 97.8 H, MCH 29.6, MCHC 30.3 L, RDW Std Deviation 57.2 H, RDW Coeff of Florina 15.9 H, Plt Count 140 L, MPV 10.9, Immature Gran % (Auto) 1.200 H, Neut % (Auto) 93.9 H, Lymph % (Auto) 0.9 L, Angelina % (Auto) 3.6, Eos % (Auto) 0.1, Baso % (Auto) 0.3, Absolute Neuts (auto) 10.6 H, Absolute Lymphs (auto) 0.10 L, Nucleated RBC % 0, Differential Comment 03/15/20 20:00: Sodium 136, Potassium 4.8, Chloride 108 H, Carbon Dioxide 23.0, Anion Gap 5, BUN 46 H, Creatinine 2.11 H, Estim Creat Clear Calc 33.60, Est GFR (MDRD) Af Amer 41 L, Est GFR (MDRD) Non-Af 34 L, BUN/Creatinine Ratio 21.8 H, Glucose 131 H, Calcium 8.3 L, Total Bilirubin 0.90, AST 11 L, ALT 17, Alkaline Phosphatase 105, Total Protein 7.0, Albumin 3.1 L, Globulin 3.9, Albumin/Globulin Ratio 0.8 L 03/15/20 20:00: Lactic Acid 2.3 H* 03/16/20 00:20: Lactic Acid 1.5 03/16/20 04:10: WBC 11.0, RBC 3.40 L, Hgb 10.2 L, Hct 33.1 L, MCV 97.4 H, MCH 30.0, MCHC 30.8 L, RDW Std Deviation 56.9 H, RDW Coeff of Florina 16.1 H, Plt Count 157, MPV 10.9, Immature Gran % (Auto) 1.000 H, Neut % (Auto) 93.4 H, Lymph % (Auto) 1.8 L, Angel[place] % (Auto) 3.4, Eos % (Auto) 0.2, Baso % (Auto) 0.2, Absolute Neuts (auto) 10.3 H, Absolute Lymphs (auto) 0.20 L, Nucleated RBC % 0, Differential Comment SCANNED, Polychromasia RARE 03/16/20 04:10: Sodium 135 L, Potassium 4.8, Chloride 107, Carbon Dioxide 21.0, Anion Gap 7, BUN 47 H, Creatinine 2.01 H, Estim Creat Clear Calc 35.27, Est GFR (MDRD) Af Amer 44 L, Est GFR (MDRD) Non-Af 36 L, BUN/Creatinine Ratio 23.4 H, Glucose 103, Calcium 8.0 L Current Medications Acetaminophen (Acetaminophen 325 Mg Tablet) 650 mg PO Q6H PRN PRN PRN Reason: Pain Score 1-10/Temp > 100.7 F Last Admin: 03/16/20 07:08 Dose: 650 mg Documented by: Albuterol Sulfate (Albuterol 2.5 Mg/3 Ml Vial.Neb.) 2.5 mg INHALATION Q4H PRN PRN PRN Reason: Shortness of breath, wheezing Albuterol/Ipratropium (Ipratropium/Albuterol Sulfate 3 Ml Ampul.Neb) 3 ml INHALATION Q6H.RT [facility] Last Admin: 03/16/20 12:38 Dose: 3 ml Documented by: Amiodarone HCl (Amiodarone 200 Mg Tablet) 400 mg PO DAILY [facility] Last Admin: 03/16/20 11:17 Dose: 400 mg Documented by: Bupropion HCl (Bupropion 100 Mg Tablet) 100 mg PO DAILY [facility] Last Admin: 03/16/20 15:29 Dose: 100 mg Documented by: Diazepam (Diazepam 5 Mg Tablet) 5 mg PO 4X/DAY PRN PRN PRN Reason: SPASMS Docusate Sodium (Docusate Sodium 100 Mg Capsule) 100 mg PO BID [facility] Last Admin: 03/16/20 10:42 Dose: Not Given Documented by: Heparin Sodium (Porcine) (Heparin Injection (Vial) 5,000 Unit/Ml Vial) 5,000 unit SC Q12 [facility] Last Admin: 03/16/20 10:46 Dose: 5,000 unit Documented by: Norepinephrine Bitartrate 8 mg (/ Sodium Chloride) 250 mls @ 9.375 mls/hr CONT INF .[id number] [facility]; Protocol Last Titration: 03/16/20 17:00 Dose: 0 mcg/min, 0 mls/hr Documented by: Piperacillin Sod/Tazobactam (Sod 3.375 gm/ Sodium Chloride) 50 mls @ 12.5 mls/hr IV Q8 [facility] Last Admin: 03/16/20 15:29 Dose: 12.5 mls/hr Documented by: Vancomycin HCl 750 mg/ Sodium (Chloride) 265 mls @ 250 mls/hr IV RX TO DOSE PRN; Protocol PRN Reason: RX TO DOSE Sodium Chloride () 250 mls @ 15 mls/hr IV .[id number] PRN PRN Reason: Saline Flush Last Admin: 03/16/20 05:16 Dose: 15 mls/hr Documented by: Sodium Chloride () 250 mls @ 15 mls/hr IV .[id number] PRN PRN Reason: Additional IVPB Infusion Vancomycin HCl 1,500 mg/ (Sodium Chloride) 530 mls @ 250 mls/hr IV Q12H [facility] Last Infusion: 03/16/20 13:25 Dose: Infused Documented by: Levothyroxine Sodium (Levothyroxine 25 Mcg Tablet) 25 mcg PO DAILY@0600 [facility] Last Admin: 03/16/20 05:16 Dose: 25 mcg Documented by: Morphine Sulfate (Morphine 2 Mg/Ml Syringe) 2 mg IV Q3H PRN PRN PRN Reason: Pain Score 6-10 Nystatin (Nystatin Powder 15gm Bottle) 1 applic TOPICAL TID [facility]; Protocol Last Admin: 03/16/20 15:29 Dose: 1 applicatio Documented by: Ondansetron HCl (Ondansetron 4 Mg/2 Ml Vial) 4 mg IV Q8H PRN PRN PRN Reason: NAUSEA/VOMITING Pantoprazole Sodium (Pantoprazole Sodium 40 Mg Tablet) 40 mg PO BID [facility] Last Admin: 03/16/20 10:47 Dose: 40 mg Documented by: Sertraline HCl (Sertraline 50 Mg Tablet) 50 mg PO BID [facility] Last Admin: 03/16/20 11:17 Dose: 50 mg Documented by: Sodium Chloride (0.9% Saline Lock 10 Ml Syringe) 10 - 40 ml IV UD PRN PRN Reason: SALINE FLUSH Zolpidem Tartrate (Zolpidem Tartrate 5 Mg Tablet) 5 mg PO QHS [facility] STROKE Vital Signs/Narrative: Vital Signs Temp Pulse Resp BP BP Pulse Ox 03/16/20 19:00 80 16 107/68 98 03/16/20 18:00 70 18 106/54 L 94 03/16/20 17:00 82 18 105/70 95 03/16/20 16:00 99.0 F 81 20 H 110/71 94 Medical Necessity - Tobacco Use Smoking Status: Never smoker Assessment/Plan All Active Problems (Last Updated 03/16/20 @ 00:[address] Nahun Ojeda MD) Septic shock (Acute) Abdominal wall cellulitis (Acute) Septic Shock 2/2 abdominal wall cellulitis -history of panniculitis status post panniculectomy and excisional debridement back on September with plan for further surgery in Mar -now off pressors -continue Vanc and Zosyn -d/c IVF -Blood cx pending -no need for OR at this time -Dr. 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
[2020-03-16] MEDS: Morphine 2 MG/ML Syringe IV (21:24)
[2020-03-16] MEDS: Docusate Sodium 100 MG Capsule PO (21:24)
[2020-03-16] MEDS: 0.9% Saline Lock 10 ML Syringe IV (21:25)
[2020-03-16] MEDS: Zolpidem Tartrate 5 MG Tablet PO (22:34)
[2020-03-17] VITALS (33 sets, daily range): BP systolic 83–116; BP diastolic 40–78; PULSE 57–91; RESP 14–32; TEMP 36.3–37.2; O2SAT 92–100; BMI 72.1
--- NOTE | 2020-03-17 | DEB_PTH ---
PATIENT: ZAIN VILLARREAL LOC: MS3 U#:[id number] AGE/SX: 60/M ROOM: MS311 RE03/16/[address]: Dr. Elieser Correa MD : 1960 BED: 1 DIS: 03/23/2020 SPEC #: [id number] RECD: 03/17/20 12:58 STATUS: SUSANA REQ #: [id number] DONTAE: 03/17/20 00:[address]: Anthony Pisano DEPT: SURGICAL PATHOLOGY RECD BY: Nelson Hines ENTERED: 03/18/20 07:31 SP TYPE: DONNA TISS OTHR DR: MD Dr. Cabrera Pathak DO Dr. Ghasem E Ashelfah, MD Dr. James A Slaby, MD Dr. Robert Leininger, MD Dr. Tai Chi Kwok, MD Tissues: Soft tissues, NOS Procedures: Special Stain Group I Surgery Specimen Level IV GMS Stain (control) Comments: @ Ordering doctor for SUIII edited from to @ by RGOOD at 03/18/20 1115 @ Submitting doctor edited from to @ by RGOOD at 03/18/20 1115 HEADER OPERATION: Abdominal panniculectomy, excisional debridement abdominal wall PRE-OP DIAGNOSIS: Septic shock, abdominal wall cellulitis TISSUE SUBMITTED: Abdominal wall skin and subcutaneous tissue MICROSCOPIC DIAGNOSIS Skin and soft tissue of abdomen, excision: Consistent with acute and chronic panniculitis. Focal non-necrotizing granulomatous inflammation. Negative for fungal organisms. AM:nathan 03/22/20 COMMENT GMS stain with matched control was used in the evaluation of this case. MICROSCOPIC DESCRIPTION Slides are reviewed. GROSS DESCRIPTION Received in fixative is one container labeled with the patient's name and designated abdominal wall skin and subcutaneous tissue. The specimen consists of two large pieces of skin with underlying tissue measuring 30 x 23 x 7 cm and 15 x 8 x 6 cm. A piece of adipose tissue is also present measuring 10 x 10 x 4 cm. Sections do not reveal mass lesions. The skin surface does not show any cutaneous lesion. Engine Turner sections are submitted in four cassettes. / SJ:nathan 03/18/20 TC:2 CPT: 16461, 61162
[2020-03-17 04:56] LABS: Anion Gap 8 (5-15); BUN 37 mg/dL (7-18); BUN/Creat Ratio 23.4 RATIO (10-20); Calcium,Total 8.3 mg/dL (8.5-10.1); Chloride 109 mmol/L (98-107); Creatinine, Serum 1.58 mg/dL (0.70-1.30); EST Glomerular Filtration Rate 48 mL/min (>60); Est Glom Filt Rate - Afr Amer 58 mL/min (>60); Estimated Creatinine Clearance 44.87 ml/min; Glucose 86 mg/dL (74-106); Potassium 4.3 mmol/L (3.5-5.1); Sodium Level 137 mmol/L (136-145)
[2020-03-17 05:17] LABS: Absolute Lymphocyte Count 0.22 X10^3/uL (0.83-4.51); Absolute Neutrophil Count 8.2 X10^3/uL (2.0-7.7); Basophil# 0.02 X10^3/uL; Basophil% 0.2 % (0-1); Eosinophil# 0.07 X10^3/uL; Eosinophils% 0.8 % (0-5); Hematocrit 32.2 % (40-54); Hemoglobin 10.1 g/dL (13.0-16.5); Lymphocyte # 0.22 X10^3/ul (4.0); Lymphocyte % 2.4 % (19-41); Mean Corp Hgb Conc 31.4 g/dL (32-36); Mean Corpuscular Hgb 30.6 pg (27.0-32.0); Mean Corpuscular Volume 97.6 fL (80-94); Mean Platelet Vol. 11.1 fl (6.2-12.0); Monocyte# 0.44 X10^3/uL; Monocyte% 4.8 % (0-10); NRBC Flagged by Analyzer 0 % (0-5); Neutrophil # 8.17 X10^3/uL (2.7-7.7); Neutrophil % 88.1 % (47-70); POSITIVE DIFFERENTIAL YES; Platelet Count 130 K/mm3 (150-450); RBC Distribution Width CV 16.3 % (11.6-14.6); RBC Distribution Width SD 58.3 fl (35.1-43.9); White Blood Count 9.3 K/mm3 (4.4-11.0)
[2020-03-17 05:18] LABS: Differential Indicated SCAN CRITERIA MET
[2020-03-17 06:52] LABS: Differential Comment SCANNED; Hypochromasia RARE
[2020-03-17] MEDS: Ipratropium/Albuterol Sulfate 3 ML AMPUL.NEB INHALATION ×2 (07:33→19:01)
[2020-03-17] MEDS: 0.9% Normal Saline 1,000 ML 60 ML IV ×2 (07:37→20:29)
[2020-03-17] MEDS: Levothyroxine 25 MCG TABLET PO (07:38)
--- NOTE | 2020-03-17 08:07 | NURSING ---
skin photo: abdomen
--- NOTE | 2020-03-17 08:08 | NURSING ---
wound photo: mid lower abdomen
[2020-03-17] MEDS: Amiodarone 200 MG Tablet 400 MG PO (08:37)
--- NOTE | 2020-03-17 08:38 | PCM.PN.INT ---
Subjective: Patient did okay overnight from a hemodynamic standpoint. However, there was significant concern secondary to progression of erythema and the development of left axillary pain. Patient has not had to be reinitiated on pressors and blood pressure has remained stable. No fevers were noted overnight. Dr. Pisano was contacted and patient was prepped overnight for possible surgery. Patient reports discomfort, but no nausea, vomiting or diarrhea. No increasing shortness of breath has been reported. Patient did have IV fluids stopped yesterday after pressors were discontinued. General: Alert, Oriented x3, Cooperative, No apparent distress, - - Speaking in full sentences. HEENT: Atraumatic, PERRLA, EOMI, Normocephalic, - - No scleral icterus or injection noted Oral: Moist Mucosa, No Gingival or Mucosal Lesions/ Ulcerations, - - Carotid posterior pharynx Neck: Supple, No Nodes, Trachea Midline, - - Difficult to assess JVD secondary to body habitus Lungs: No rhonchi, No wheeze, No rales, Diminished Cardiovascular: Regular rate, Regular Rhythm, Normal S1, Normal S2, No murmurs, No rub noted, No Gallop Abdomen: Bowel Sounds Present, Soft, Non Tender, Non-Distended, Obese Extremities: No clubbing, No cyanosis, Edema Skin: Rash Present - There are some areas that have progressed beyond borders placed yesterday, primarily on the left flank and around the umbilicus. This is warm to the touch. No crepitus is appreciated. Musculoskeletal: No Tenderness to Palpation of Joints or Extremities Lymphatic: No Cervical, Supraclavicular, or Inguinal Adenopathy Neurological: Cranial nerves II-XII grossly intact, Neuro grossly intact, Motor Exam 5/5 strength throughout Psych/Mental Status: Alert and oriented to time, place, person, mood and affect Vital Signs Temp Pulse Resp BP Pulse Ox 36.9 C 83 32 H 108/63 95 03/17/20 05:00 03/17/20 07:33 03/17/20 07:33 03/17/20 07:00 03/17/20 07:33 Oxygen Flow Rate (L/min) 2 Oxygen Delivery Method Room Air Weight: 206.3 kg Body Mass Index (BMI) 73.4 Intake and Output for Last 24 Hours 03/15/20 03/16/20 03/17/20 23:59 23:59 23:59 Intake Total 3322.65 / 3322.65 4322.22 / 4322.22 920 / 920 Output Total 1100 / 1100 350 / 350 Balance 3322.65 / 3322.65 3222.22 / 3222.22 570 / 570 Labs (Last 48 Hours) 03/15/20 03/15/20 03/15/20 20:00 20:00 20:00 WBC 11.3 H RBC 3.24 L Hgb 9.6 L Hct 31.7 L MCV 97.8 H MCH 29.6 MCHC 30.3 L RDW Std Deviation 57.2 H RDW Coeff of Florina 15.9 H Plt Count 140 L MPV 10.9 Immature Gran % (Auto) 1.200 H Neut % (Auto) 93.9 H Lymph % (Auto) 0.9 L [place] % (Auto) 3.6 Eos % (Auto) 0.1 Baso % (Auto) 0.3 Absolute Neuts (auto) 10.6 H Absolute Lymphs (auto) 0.10 L Nucleated RBC % 0 Differential Comment Polychromasia Hypochromasia Sodium 136 Potassium 4.8 Chloride 108 H Carbon Dioxide 23.0 Anion Gap 5 BUN 46 H Creatinine 2.11 H Estim Creat Clear Calc 33.60 Est GFR (MDRD) Af Amer 41 L Est GFR (MDRD) Non-Af 34 L BUN/Creatinine Ratio 21.8 H Glucose 131 H Lactic Acid 2.3 H* Calcium 8.3 L Total Bilirubin 0.90 AST 11 L ALT 17 Alkaline Phosphatase 105 Total Protein 7.0 Albumin 3.1 L Globulin 3.9 Albumin/Globulin Ratio 0.8 L 03/16/20 03/16/20 03/16/20 00:20 04:10 04:10 WBC 11.0 RBC 3.40 L Hgb 10.2 L Hct 33.1 L MCV 97.4 H MCH 30.0 MCHC 30.8 L RDW Std Deviation 56.9 H RDW Coeff of Florina 16.1 H Plt Count 157 MPV 10.9 Immature Gran % (Auto) 1.000 H Neut % (Auto) 93.4 H Lymph % (Auto) 1.8 L [place] % (Auto) 3.4 Eos % (Auto) 0.2 Baso % (Auto) 0.2 Absolute Neuts (auto) 10.3 H Absolute Lymphs (auto) 0.20 L Nucleated RBC % 0 Differential Comment SCANNED Polychromasia RARE Hypochromasia Sodium 135 L Potassium 4.8 Chloride 107 Carbon Dioxide 21.0 Anion Gap 7 BUN 47 H Creatinine 2.01 H Estim Creat Clear Calc 35.27 Est GFR (MDRD) Af Amer 44 L Est GFR (MDRD) Non-Af 36 L BUN/Creatinine Ratio 23.4 H Glucose 103 Lactic Acid 1.5 Calcium 8.0 L Total Bilirubin AST ALT Alkaline Phosphatase Total Protein Albumin Globulin Albumin/Globulin Ratio 03/17/20 03/17/20 04:20 04:20 WBC 9.3 RBC 3.30 L Hgb 10.1 L Hct 32.2 L MCV 97.6 H MCH 30.6 MCHC 31.4 L RDW Std Deviation 58.3 H RDW Coeff of Florina 16.3 H Plt Count 130 L MPV 11.1 Immature Gran % (Auto) 3.700 H Neut % (Auto) 88.1 H Lymph % (Auto) 2.4 L [place] % (Auto) 4.8 Eos % (Auto) 0.8 Baso % (Auto) 0.2 Absolute Neuts (auto) 8.2 H Absolute Lymphs (auto) 0.22 L Nucleated RBC % 0 Differential Comment SCANNED Polychromasia Hypochromasia RARE Sodium 137 Potassium 4.3 Chloride 109 H Carbon Dioxide 20.0 L Anion Gap 8 BUN 37 H Creatinine 1.58 H Estim Creat Clear Calc 44.87 Est GFR (MDRD) Af Amer 58 L Est GFR (MDRD) Non-Af 48 L BUN/Creatinine Ratio 23.4 H Glucose 86 Lactic Acid Calcium 8.3 L Total Bilirubin AST ALT Alkaline Phosphatase Total Protein Albumin Globulin Albumin/Globulin Ratio Medical Necessity - Tobacco Use Smoking Status: Never smoker Assessment/Plan All Active Problems (Last Updated 03/16/20 @ 00:[address] Nahun Ojeda MD) Septic shock (Acute) Abdominal wall cellulitis (Acute) RECOMMENDATIONS: 1. Continue empiric antibiotic therapy. Await infectious disease recommendations 2. Await plastics evaluation 3. Hold on additional fluid resuscitation if possible 4. Wean oxygen to keep sats in the mid 90s 5. Await possible surgical recommendations IMPRESSIONS: 1. Septic shock secondary to cellulitis/panniculitis Patient was significant warmth and erythema noted throughout the pannus. This does not appear to be venous stasis. Patient has been able to stay off of pressor agents, but there has been some progression in rash. No fevers been noted, but patient did develop leukocytosis. Unable to obtain a CT scan secondary to body habitus to evaluate for necrotizing fasciitis. No crepitus is palpable. Left axillary pain may be secondary to lymphadenopathy. No palpable fluctuance to suggest an abscess, but may require surgical exploration by plastics. Await recommendations from infectious disease and plastics. 2. Chronic kidney disease stage III Patient appears to be at his baseline at this time. Continue to monitor. Patient would be at risk for prerenal ATN, but did receive pressors and IV fluids. Avoid nephrotoxic medications if possible. Continue to monitor with BMP. Fluids were stopped following pressor discontinuation. Renal function improving. 3. Chronic combined cardiomyopathy/paroxysmal A. fib Appears to be compensated at this time. We will have to watch patient closely as he does have diastolic and systolic dysfunction noted on previous interventions. Will attempt to keep saturations in the mid 90s so that fluid retention and pulmonary edema can be noted earlier. Patient currently off pressors. Would attempt to avoid maintenance fluids if possible. 4. Reported COPD/super morbid obesity/hypothyroidism/chronic anemia/anxiety/depression/decreased mobility Complicates care, management, recovery and prognosis Inpatient E&M: [id number] [facility] Hosp L3
--- NOTE | 2020-03-17 10:36 | CASEMGMT ---
As per RN, pt is going to OR today. SW met w/pt briefly, spoke w/him about discharge options. Pt will likely want to go to [facility] at discharge, is agreeable to SW sending initial referral. SW called [facility], message left, initial referral faxed. SW will continue to follow. DARION Garrett
--- NOTE | 2020-03-17 12:45 | PN_ITS ---
Patient Problems: Active and Suspected Problems (Last Updated 03/16/20 @ 00:[address] Nahun Ojeda MD) Septic shock (Acute) Abdominal wall cellulitis (Acute) Reason for Visit: septic shock Subjective: No new complaints. Still with redness over abdomen. Vitals/I&O's: Vital Signs Temp Pulse Resp BP Pulse Ox 37.1 C 78 20 H 114/50 L 94 03/17/20 09:00 03/17/20 10:00 03/17/20 10:00 03/17/20 10:00 03/17/20 10:00 Oxygen Flow Rate (L/min) 2 Oxygen Delivery Method Room Air Weight: 203.6 kg Body Mass Index (BMI) 72.1 Intake and Output for Last 24 Hours 03/15/20 03/16/20 03/17/20 23:59 23:59 23:59 Intake Total 3322.65 / 3322.65 4322.22 / 4322.22 1204.21 / 1204.21 Output Total 1100 / 1100 800 / 800 Balance 3322.65 / 3322.65 3222.22 / 3222.22 404.21 / 404.21 General: Alert, No apparent distress HEENT: Atraumatic, Normocephalic Oral: Moist Mucosa, No Gingival or Mucosal Lesions/ Ulcerations Neck: No Nodes, Thyroid Normal Size and Texture Lungs: Clear to auscultation, Normal air movement, No rhonchi, No wheeze, No rales Cardiovascular: Regular rate, Regular Rhythm, Normal S1, Normal S2 Abdomen: Bowel Sounds Present, Soft, Non Tender, Non-Distended, No Hepato- splenomegaly, Obese Extremities: No edema, No Calf Tenderness Skin: - - red erythema around abdomen on left lateral and lower abdomen. Psych/Mental Status: Normal Affect, Appropriate Microbiology Past 72 Hours 03/17/20 08:30 Mucosa - Nose SARS-CoV-2 Antigen (Rapid) - Final Laboratory Results 03/17/20 04:20: WBC 9.3, RBC 3.30 L, Hgb 10.1 L, Hct 32.2 L, MCV 97.6 H, MCH 30.6, MCHC 31.4 L, RDW Std Deviation 58.3 H, RDW Coeff of Florina 16.3 H, Plt Count 130 L, MPV 11.1, Immature Gran % (Auto) 3.700 H, Neut % (Auto) 88.1 H, Lymph % (Auto) 2.4 L, [place] % (Auto) 4.8, Eos % (Auto) 0.8, Baso % (Auto) 0.2, Absolute Neuts (auto) 8.2 H, Absolute Lymphs (auto) 0.22 L, Nucleated RBC % 0, Differential Comment SCANNED, Hypochromasia RARE 03/17/20 04:20: Sodium 137, Potassium 4.3, Chloride 109 H, Carbon Dioxide 20.0 L , Anion Gap 8, BUN 37 H, Creatinine 1.58 H, Estim Creat Clear Calc 44.87, Est GFR (MDRD) Af Amer 58 L, Est GFR (MDRD) Non-Af 48 L, BUN/Creatinine Ratio 23.4 H , Glucose 86, Calcium 8.3 L 03/17/20 10:00: Blood Type A POSITIVE, Antibody Screen NEGATIVE, Crossmatch See Detail Current Medications Acetaminophen (Acetaminophen 325 Mg Tablet) 650 mg PO Q6H PRN PRN PRN Reason: Pain Score 1-10/Temp > 100.7 F Last Admin: 03/16/20 07:08 Dose: 650 mg Documented by: Albuterol Sulfate (Albuterol 2.5 Mg/3 Ml Vial.Neb.) 2.5 mg INHALATION Q4H PRN PRN PRN Reason: Shortness of breath, wheezing Albuterol/Ipratropium (Ipratropium/Albuterol Sulfate 3 Ml Ampul.Neb) 3 ml INHALATION Q6H.RT [facility] Last Admin: 03/17/20 07:33 Dose: 3 ml Documented by: Amiodarone HCl (Amiodarone 200 Mg Tablet) 400 mg PO DAILY [facility] Last Admin: 03/17/20 08:37 Dose: 400 mg Documented by: Bupropion HCl (Bupropion 100 Mg Tablet) 100 mg PO DAILY [facility] Last Admin: 03/16/20 15:29 Dose: 100 mg Documented by: Diazepam (Diazepam 5 Mg Tablet) 5 mg PO 4X/DAY PRN PRN PRN Reason: SPASMS Docusate Sodium (Docusate Sodium 100 Mg Capsule) 100 mg PO BID [facility] Last Admin: 03/16/20 21:24 Dose: 100 mg Documented by: Heparin Sodium (Porcine) (Heparin Injection (Vial) 5,000 Unit/Ml Vial) 5,000 unit SC Q12 [facility] Last Admin: 03/17/20 10:50 Dose: Not Given Documented by: Norepinephrine Bitartrate 8 mg (/ Sodium Chloride) 250 mls @ 9.375 mls/hr CONT INF .[id number] [facility]; Protocol Last Admin: 03/17/20 02:22 Dose: Not Given Documented by: Piperacillin Sod/Tazobactam (Sod 3.375 gm/ Sodium Chloride) 50 mls @ 12.5 mls/hr IV Q8 [facility] Last Infusion: 03/17/20 10:51 Dose: Infused Documented by: Vancomycin HCl 750 mg/ Sodium (Chloride) 265 mls @ 250 mls/hr IV RX TO DOSE PRN; Protocol PRN Reason: RX TO DOSE Sodium Chloride () 250 mls @ 15 mls/hr IV .[id number] PRN PRN Reason: Saline Flush Last Infusion: 03/16/20 20:11 Dose: 0 mls/hr Documented by: Sodium Chloride () 250 mls @ 15 mls/hr IV .[id number] PRN PRN Reason: Additional IVPB Infusion Vancomycin HCl 1,500 mg/ (Sodium Chloride) 530 mls @ 250 mls/hr IV Q12H [facility] Last Infusion: 03/17/20 03:37 Dose: Infused Documented by: Sodium Chloride () 1,000 mls @ 60 mls/hr IV .[id number] [facility] Last Infusion: 03/17/20 10:51 Dose: 0 mls/hr Documented by: Levothyroxine Sodium (Levothyroxine 25 Mcg Tablet) 25 mcg PO DAILY@0600 [facility] Last Admin: 03/17/20 07:38 Dose: 25 mcg Documented by: Morphine Sulfate (Morphine 2 Mg/Ml Syringe) 2 mg IV Q3H PRN PRN PRN Reason: Pain Score 6-10 Last Admin: 03/16/20 21:24 Dose: 2 mg Documented by: Nystatin (Nystatin Powder 15gm Bottle) 1 applic TOPICAL TID [facility]; Protocol Last Admin: 03/17/20 07:38 Dose: Not Given Documented by: Ondansetron HCl (Ondansetron 4 Mg/2 Ml Vial) 4 mg IV Q8H PRN PRN PRN Reason: NAUSEA/VOMITING Pantoprazole Sodium (Pantoprazole Sodium 40 Mg Tablet) 40 mg PO BID [facility] Last Admin: 03/16/20 21:23 Dose: 40 mg Documented by: Sertraline HCl (Sertraline 50 Mg Tablet) 50 mg PO BID [facility] Last Admin: 03/16/20 21:24 Dose: 50 mg Documented by: Sodium Chloride (0.9% Saline Lock 10 Ml Syringe) 10 - 40 ml IV UD PRN PRN Reason: SALINE FLUSH Last Admin: 03/16/20 21:25 Dose: 40 ml Documented by: Zolpidem Tartrate (Zolpidem Tartrate 5 Mg Tablet) 5 mg PO QHS [facility] Last Admin: 03/16/20 22:34 Dose: 5 mg Documented by: STROKE Vital Signs/Narrative: Vital Signs Temp Pulse Resp BP BP Pulse Ox 03/17/20 10:00 78 20 H 114/50 L 94 03/17/20 09:00 37.1 C 81 24 H 108/40 L 108/40 L 97 Medical Necessity - Tobacco Use Smoking Status: Never smoker Assessment/Plan All Active Problems (Last Updated 03/16/20 @ 00:[address] Nahun Ojeda MD) Septic shock (Acute) Abdominal wall cellulitis (Acute) 1. Septic shock * resolved * 2/2 #2 * off pressors 2. abdominal wall cellulitis * on pip/tazo and vanc * PRS on consult 3. LARRY * improving * monitor * on IVF 4. Chronic condition: stable, but complicates care * COPD * morbid obesity * pAfib * hypothyroid * anemia 5. VTE prophylaxis: SQ heparin Inpatient E&M: 34277 Subs Hosp L2
--- NOTE | 2020-03-17 13:04 | OP.PCM_ITS ---
Report of Operation Date of Procedure: 03/17/20 Pre-Operative Diagnosis: 1. Massive abdominal panniculus with panniculitis and extensive cellulitis. 2. Necrotizing soft tissue infection. 3. Recent weight loss. 4. Abdominal wall skin crease intertrigo. 5. Painful lymphedema left lower abdominal wall. 6. Lumbar back pain. 7. History of laparoscopic ventral hernia repair with mesh. 8. History of DVT. 9. Sepsis, resolving. Post-Operative Diagnosis: Same. Surgery/Procedure Performed:: 1. Surgical preparation left abdominal wall with excisional debridement skin, subcutaneous tissue, and fascia for necrotizing soft tissue infection (576 cm2). 2. Abdominal panniculectomy. Description of Surgical Findings:: Patient known to me. He was [facility] on [facility]. He has a residual ulcer right abdominal wall that is almost healed and is treated with Collagen Hydrogel dressing changes. This was the result of surgery on 10/21/19 where he underwent surgical preparation right abdominal wall with excisional debridement skin, subcutaneous tissue, and fascia necrotizing soft tissue infection (731 cm2) and abdominal panniculectomy. It was noted he was developing increasing edema to his left abdominal wall and further surgery was discussed with him to excise some of the left abdominal wall panniculus next month. However he was recently admitted to the ICU with sepsis and extensive cellulitis abdominal wall. He was started on Vancomycin and Zosyn. I was asked to evaluate this patient for surgical options for treatment. Patient was informed of the risks and complications of the procedure including alternatives to surgery. These were discussed with the patient personally. Patient voices understanding and wishes to proceed. He understands the wound will be left open and postop wound care started with the VAC. Edema fluid in the wound - 950 ml. Size of defect left abdominal wall - 36 x 16 x 16 cm. passenger service representative: Christopher Patton. Specimen's removed: 1. Left abdominal panniculus with panniculitis to Pathology and Microbiology. 2. MRSA Wound DNA by PCR. Drains: None. Estimated Blood Loss (mL): 450 ml. Description of Procedure: Patient was taken to OR in supine position and was placed under general anesthesia. The left abdominal wall was prepped and draped in the usual fashion. SCD's were placed for DVT prophylaxis. A jordan catheter was placed. For the procedure, I wore an N95 mask and wore proper eyewear protection. I proceeded with excisional debridement of the panniculitis with extensive cellulitis on the left abdominal wall in the areas of palpable firmness from increased edema and redness and tenderness. I excised down into the subcu taneous tissue. A lot of extensive fat necrosis was present. Some isolated pus was seen. The fat necrosis extended past Mk's fascia down to the abdominal wall fascia. This extensive firm fat necrosis was excised and debrided. Large amount of edema was present that was suctioned out. He also has extensive abdominal wall skin crease intertrigo, and his large abdominal panniculus is at risk for further worsening infection. Therefore an abdominal panniculectomy was also performed on the left side from the pubic area superiorly and laterally toward the umbilicus. I had discussed with the patient preoperatively that I will excise what I can safely as long as there are no cardiorespiratory issues during surgery and the intra-operative blood loss is less than 500 ml. Tissue excised was sent to Pathology for analysis to rule out carcinoma. Tissue was also sent to Microbiology for culture. A MRSA Wound DNA by PCR was done. A positive culture will necessitate antibiotic therapy. The wound was irrigated with saline. Hemostasis was obtained with electrocautery. Dimensions of the abdominal wall wound after surgical preparation abdominal wall with excisional debridement skin and subcutaneous tissue and fascia necrotizing soft tissue infection and abdominal panniculectomy were 36 x 16 x 16 cm or 576 cm2. The skin edges were soft after the surgery. With these types of necrotizing soft tissue infections, sometimes, additional surgery is needed over the next few days. Will monitor. The wound was then dressed with Mepitel nonadherent dressing followed by Kerlix gauze and Betadine followed by dry Kerlix gauze and ABD compression dressing. Patient tolerated the procedure well and was sent to PACU in satisfactory condition. Patient will be sent upstairs to the ICU for continued postop care. He will continue IV antibiotics. The VAC will be placed in the next 1-2 days depending on oozing in the wound. Will also check a Prealbumin and encourage nutritional supplementation with protein to help the healing process. After discharge he will followup at the [facility]. If there is a plateau in the healing process, can proceed in a delayed fashion with further operative debridement and skin grafting. Grafts/Implants Used: None. - Complications None. - Admit VTE Documentation VTE Present on Admission: No VTE Mechan Device Prophylaxis: SCD's VTE Pharm Prophylaxis ordered?: Yes Surgery Charges CPT 58026 ICD-10 - M79.89, E65, M79.3, L03.311, A41.9, R63.4, L30.4, I89.0, M54.5, Z98.890, Z86.718 71403 E65, M79.3, M79.89, L03.311, A41.9, R63.4, L30.4, I89.0, M54.5, Z98.890, Z86.718
[2020-03-17] MEDS: Lidocaine 1%/Epi 1:200 (30ml) 30 ML AMPUL (14:29)
[2020-03-17 14:40] LABS: Pathologist Review Reviewed
[2020-03-17] MEDS: Nystatin Powder 15gm Bottle 1 APPLIC TOPICAL ×2 (15:08→21:26)
[2020-03-17 15:38] LABS: Vancomycin, Trough Level 16.2 ug/mL (5.0-15.0)
[2020-03-17 16:02] LABS: M R Staph aureus DNA By PCR Negative (Negative); Probe Check PASS; Specimen Processing Control PASS; Staph aureus DNA By PCR NEGATIVE (Negative)
[2020-03-17] MEDS: Acetaminophen 325 MG Tablet 650 MG PO (17:50)
[2020-03-17] MEDS: oxyCODONE 5 MG Tablet 10 MG PO (17:50)
[2020-03-17] MEDS: 0.9% Saline Lock 10 ML Syringe IV (18:27)
--- NOTE | 2020-03-17 19:30 | PCM.RX.CS ---
Consult Pharmacy has been consulted to manage selected antiobiotic: Vancomycin Type of Consult: Follow-up Suspected Infection: Skin/Soft tissue Prior Doses of Antibiotics Received/Current Regimen: current regimen is 1500mg IV q12h Labs: Sodium 137 mmol/L (136-145) 03/17/20 04:20 Potassium 4.3 mmol/L (3.5-5.1) 03/17/20 04:20 Chloride 109 mmol/L (98-107) H 03/17/20 04:20 Carbon Dioxide 20.0 mmol/L (21.0-32.0) L 03/17/20 04:20 Anion Gap 8 (5-15) 03/17/20 04:20 BUN 37 mg/dL (7-18) H 03/17/20 04:20 Creatinine 1.58 mg/dL (0.70-1.30) H 03/17/20 04:20 Est GFR (MDRD) Af Amer 58 mL/min (>60) L 03/17/20 04:20 Est GFR (MDRD) Non-Af 48 mL/min (>60) L 03/17/20 04:20 BUN/Creatinine Ratio 23.4 RATIO (10-20) H 03/17/20 04:20 Glucose 86 mg/dL (74-106) 03/17/20 04:20 Vancomycin Trough 16.2 ug/mL (5.0-15.0) H 03/17/20 14:52 Microbiology: Microbiology 03/17/20 Unknown Tissue - Abdominal Gram Stain - Final 03/17/20 08:30 Mucosa - Nose SARS-CoV-2 Antigen (Rapid) - Final Weight used for dosin.6 kg Estimated Creatinine Clearance: 84ml/min Goal Trough: 15-20 mcg/mL Pharmacy Plan for Drug Dosing: The trough drawn today at 14:52 (drawn about 13.5 hours after the previous dose) was 16.2. However, it was delayed a few hours due to the patient going to surgery. This morning's dose was also then delayed until 15:08 this afternoon and IV access was lost so only about half of the dose infused per nursing estimation. Therefore, dosing will be resumed at the previously scheduled time tonight at 23:00 and we will recheck the trough before tomorrow morning's dose to try to get a more accurate result. The patient's CrCl of 84ml/min was calculated using an adjusted body weight of 119.7kg. Pharmacy Service will continue to monitor and adjust dosing as required. Follow-Up Labs: Trough Vancomycin Labs to be done on [date and time ordered]: 03/18/20 10:30
--- NOTE | 2020-03-17 20:00 | RAD_ITS ---
STUDY: X-RAY CHEST REASON FOR EXAM: Male, 60 years old. PICC LINE PLACEMENT TECHNIQUE: Single frontal view of the chest. COMPARISON: 03/16/2020 FINDINGS: Unique polar AICD unchanged. New PICC line in the right. Tip is not well identified. The lungs are clear and expanded. There is no demonstrated pleural abnormality. Normal size heart. Normal mediastinum and oumou. Normal visualized pulmonary arteries. Normal visualized aortic arch and descending thoracic aorta. Normal visualized thoracic spine. Normal visualized ribs, clavicles, and shoulders. There is no demonstrated abnormality of the visualized soft tissue structures of the upper abdomen. RAD/CXR for Line Placement IMPRESSION: The PICC line in the right. Distal tip is not well identified due to underpenetration. Electronically Signed: Vincent Dawson MD at 22:29 EST , Service support ,
[2020-03-17] MEDS: Heparin Injection (Vial) 5,000 UNIT/ML VIAL 5000 UNIT SC (21:25)
[2020-03-17] MEDS: Docusate Sodium 100 MG Capsule PO (21:25)
[2020-03-17] MEDS: Zolpidem Tartrate 5 MG Tablet PO (21:25)
[2020-03-17] MEDS: Pantoprazole Sodium 40 MG Tablet PO (21:26)
[2020-03-17] MEDS: Sertraline 50 MG Tablet PO (21:27)
--- NOTE | 2020-03-17 23:10 | RAD_ITS ---
STUDY: X-RAY CHEST REASON FOR EXAM: Male, 60 years old. line placement TECHNIQUE: Single frontal view of the chest. COMPARISON: 03/17/2020 FINDINGS: Left unipolar pacer and right-sided PICC line again noted. PICC line appears to terminate is seen at the atriocaval junction and possibly more inferiorly. The lungs are clear and expanded. There is no demonstrated pleural abnormality. Normal size heart. Normal mediastinum and oumou. Normal visualized pulmonary arteries. Normal visualized aortic arch and descending thoracic aorta. Normal visualized thoracic spine. Normal visualized ribs, clavicles, and shoulders. There is no demonstrated abnormality of the visualized soft tissue structures of the upper abdomen. RAD/Chest 1 View (Portable) IMPRESSION: PICC line tip may be inferior to the atrial caval junction. Follow-up is needed and lateral KUB may be helpful. Otherwise no acute disease. Electronically Signed: Vincent Dawson MD at 23:44 EST , Service support ,
[2020-03-18] VITALS (18 sets, daily range): BP systolic 85–107; BP diastolic 38–86; PULSE 61–108; RESP 16–20; TEMP 36.4–36.9; O2SAT 90–100
[2020-03-18] MEDS: oxyCODONE 5 MG Tablet 10 MG PO ×2 (00:42→20:07)
[2020-03-18 04:22] LABS: Absolute Lymphocyte Count 0.47 X10^3/uL (0.83-4.51); Absolute Neutrophil Count 8.4 X10^3/uL (2.0-7.7); Basophil# 0.02 X10^3/uL; Basophil% 0.2 % (0-1); Eosinophil# 0.16 X10^3/uL; Eosinophils% 1.6 % (0-5); Hematocrit 30.7 % (40-54); Hemoglobin 9.3 g/dL (13.0-16.5); Lymphocyte # 0.47 X10^3/ul (4.0); Lymphocyte % 4.8 % (19-41); Mean Corp Hgb Conc 30.3 g/dL (32-36); Mean Corpuscular Hgb 30.1 pg (27.0-32.0); Mean Corpuscular Volume 99.4 fL (80-94); Mean Platelet Vol. 10.8 fl (6.2-12.0); Monocyte# 0.64 X10^3/uL; Monocyte% 6.6 % (0-10); NRBC Flagged by Analyzer 0 % (0-5); Neutrophil # 8.39 X10^3/uL (2.7-7.7); Neutrophil % 85.9 % (47-70); POSITIVE DIFFERENTIAL YES; Platelet Count 122 K/mm3 (150-450); RBC Distribution Width CV 16.2 % (11.6-14.6); RBC Distribution Width SD 58.2 fl (35.1-43.9); Red Blood Count 3.09 M/mm3 (4.6-6.2); White Blood Count 9.8 K/mm3 (4.4-11.0)
[2020-03-18 04:38] LABS: Differential Indicated SCAN CRITERIA MET
[2020-03-18 04:53] LABS: Differential Comment SCANNED
[2020-03-18 04:54] LABS: Hypochromasia RARE; Macrocytosis RARE
[2020-03-18 04:55] LABS: Platelet Estimate SLT DEC (ADEQ)
[2020-03-18 05:01] LABS: Anion Gap 4 (5-15); BUN 32 mg/dL (7-18); BUN/Creat Ratio 23.9 RATIO (10-20); Calcium,Total 8.1 mg/dL (8.5-10.1); Chloride 113 mmol/L (98-107); Creatinine, Serum 1.34 mg/dL (0.70-1.30); EST Glomerular Filtration Rate 58 mL/min (>60); Est Glom Filt Rate - Afr Amer 70 mL/min (>60); Glucose 74 mg/dL (74-106); Potassium 4.2 mmol/L (3.5-5.1); Prealbumin 8.2 mg/dL (20.0-40.0); Sodium Level 140 mmol/L (136-145)
[2020-03-18] MEDS: Nystatin Powder 15gm Bottle 1 APPLIC TOPICAL ×3 (06:08→22:15)
[2020-03-18] MEDS: Levothyroxine 25 MCG TABLET PO (06:08)
[2020-03-18] MEDS: 0.9% Saline Lock 10 ML Syringe IV ×5 (06:15→19:18)
--- NOTE | 2020-03-18 06:31 | PN_ITS ---
Subjective: The patient was seen and examined at the bedside this morning. Events from the last 24 hours have been reviewed. The patient is currently afebrile, hemodynamically stable and maintaining appropriate oxygen saturations on room air. The patient did have a PICC line placed yesterday. Levophed was never required to maintain hemodynamic stability. Creatinine is improved this morning to 1.34. The patient remains on broad-spectrum antimicrobials. Objective: The patient's most recent lab work, culture data and imaging studies have all been personally reviewed. Surface echocardiogram from October 2018 revealed an ejection fraction of 35%. Right ventricular systolic pressure was estimated to be 33 mmHg. Wound cultures are pending. Coronavirus rapid antigen testing was negative. Blood cultures are pending. General: Alert, Oriented x3, Cooperative, No apparent distress, - - Super morbi dly obese HEENT: Atraumatic, PERRLA, Normocephalic Oral: No Gingival or Mucosal Lesions/ Ulcerations Neck: Supple, No Nodes, Trachea Midline Lungs: No rhonchi, No wheeze, No rales, Diminished Cardiovascular: Regular rate, Regular Rhythm Abdomen: Bowel Sounds Present, Soft, Obese Extremities: No clubbing, No cyanosis, Edema Skin: - - Surgical wound with packing/dressing in place. Musculoskeletal: No Tenderness to Palpation of Joints or Extremities Lymphatic: No Cervical, Supraclavicular, or Inguinal Adenopathy Neurological: Cranial nerves II-XII grossly intact, Neuro grossly intact Psych/Mental Status: Alert and oriented to time, place, person, mood and affect Vital Signs Temp Pulse Resp BP Pulse Ox 97.9 F 108 H 16 102/61 90 03/18/20 04:00 03/18/20 06:00 03/18/20 06:00 03/18/20 06:00 03/18/20 06:00 Oxygen Flow Rate (L/min) 2 Oxygen Delivery Method Room Air Weight: 448 lb 13.778 oz Body Mass Index (BMI) 72.1 Intake and Output for Last 24 Hours 03/16/20 03/17/20 03/18/20 23:59 23:59 23:59 Intake Total 4322.22 / 4322.22 2155.54 / 2555.54 980 / 980 Output Total 1100 / 1100 2150 / 2500 650 / 650 Balance 3222.22 / 3222.22 5.54 / 55.54 330 / 330 Labs (Last 48 Hours) 03/17/20 03/17/20 03/17/20 04:20 04:20 10:00 WBC 9.3 RBC 3.30 L Hgb 10.1 L Hct 32.2 L MCV 97.6 H MCH 30.6 MCHC 31.4 L RDW Std Deviation 58.3 H RDW Coeff of Florina 16.3 H Plt Count 130 L MPV 11.1 Immature Gran % (Auto) 3.700 H Neut % (Auto) 88.1 H Lymph % (Auto) 2.4 L Hopkins % (Auto) 4.8 Eos % (Auto) 0.8 Baso % (Auto) 0.2 Absolute Neuts (auto) 8.2 H Absolute Lymphs (auto) 0.22 L Nucleated RBC % 0 Differential Comment SCANNED Diff Path Review Reviewed Platelet Estimate Hypochromasia RARE Macrocytosis Sodium 137 Potassium 4.3 Chloride 109 H Carbon Dioxide 20.0 L Anion Gap 8 BUN 37 H Creatinine 1.58 H Estim Creat Clear Calc 44.87 Est GFR (MDRD) Af Amer 58 L Est GFR (MDRD) Non-Af 48 L BUN/Creatinine Ratio 23.4 H Glucose 86 Calcium 8.3 L Prealbumin Vancomycin Trough S.aureus Protein A PCR MRSA (PCR) Blood Type A POSITIVE Antibody Screen NEGATIVE Crossmatch See Detail 03/17/20 03/17/20 03/18/20 12:15 14:52 04:05 WBC 9.8 RBC 3.09 L Hgb 9.3 L Hct 30.7 L MCV 99.4 H MCH 30.1 MCHC 30.3 L RDW Std Deviation 58.2 H RDW Coeff of Florina 16.2 H Plt Count 122 L MPV 10.8 Immature Gran % (Auto) 0.900 Neut % (Auto) 85.9 H Lymph % (Auto) 4.8 L Hopkins % (Auto) 6.6 Eos % (Auto) 1.6 Baso % (Auto) 0.2 Absolute Neuts (auto) 8.4 H Absolute Lymphs (auto) 0.47 L Nucleated RBC % 0 Differential Comment SCANNED Diff Path Review Platelet Estimate SLT DEC Hypochromasia RARE Macrocytosis RARE Sodium Potassium Chloride Carbon Dioxide Anion Gap BUN Creatinine Estim Creat Clear Calc Est GFR (MDRD) Af Amer Est GFR (MDRD) Non-Af BUN/Creatinine Ratio Glucose Calcium Prealbumin Vancomycin Trough 16.2 H S.aureus Protein A PCR NEGATIVE MRSA (PCR) Negative Blood Type Antibody Screen Crossmatch 03/18/20 04:05 WBC RBC Hgb Hct MCV MCH MCHC RDW Std Deviation RDW Coeff of Florina Plt Count MPV Immature Gran % (Auto) Neut % (Auto) Lymph % (Auto) Hopkins % (Auto) Eos % (Auto) Baso % (Auto) Absolute Neuts (auto) Absolute Lymphs (auto) Nucleated RBC % Differential Comment Diff Path Review Platelet Estimate Hypochromasia Macrocytosis Sodium 140 Potassium 4.2 Chloride 113 H Carbon Dioxide 23.0 Anion Gap 4 L BUN 32 H Creatinine 1.34 H Estim Creat Clear Calc 52.90 Est GFR (MDRD) Af Amer 70 Est GFR (MDRD) Non-Af 58 L BUN/Creatinine Ratio 23.9 H Glucose 74 Calcium 8.1 L Prealbumin 8.2 L Vancomycin Trough S.aureus Protein A PCR MRSA (PCR) Blood Type Antibody Screen Crossmatch Microbiology 03/17/20 Unknown Tissue - Abdominal Gram Stain - Final 03/17/20 08:30 Mucosa - Nose SARS-CoV-2 Antigen (Rapid) - Final Clinical Impression(s) from Imaging Studies Chest X-Ray 03/16/20 00:02 IMPRESSION: There is moderate cardiac enlargement There is prominence of the pulmonary hilar arteries and peripheral pulmonary arteries, consistent with congestive heart failure (CHF). There is no evidence of pneumothorax. Electronically Signed: Wolfgang Yu at 2:21 EST Tel , Service support , Chest X-Ray 03/17/20 20:00 IMPRESSION: The PICC line in the right. Distal tip is not well identified due to underpenetration. Electronically Signed: Vincent Dawson MD at 22:29 EST , Service support , Chest X-Ray 03/17/20 23:10 IMPRESSION: PICC line tip may be inferior to the atrial caval junction. Follow-up is needed and lateral KUB may be helpful. Otherwise no acute disease. Electronically Signed: Vincent Dawson MD at 23:44 EST , Service support , Medical Necessity - Tobacco Use Smoking Status: Never smoker Assessment/Plan All Active Problems (Last Updated 03/16/20 @ 00:[address] Nahun Ojeda MD) Septic shock (Acute) Abdominal wall cellulitis (Acute) RECOMMENDATIONS: 1. Continue local wound care per general surgery recommendations. 2. Continue broad-spectrum antimicrobials as ordered. 3. Encourage incentive spirometer use and mobilize patient as tolerated. 4. Continue nocturnal BiPAP therapy per home regimen. IMPRESSIONS: 1. Septic shock secondary to cellulitis/panniculitis, now POD#1 status post excisional debridement abdominal panniculectomy Plan to continue current supportive measures. The patient has been adequately volume resuscitated and remains hemodynamically stable. No vasopressor support was ever required. Continue local wound care and broad-spectrum antimicrobials, pending finalized infectious work-up. 2. Acute on chronic kidney disease stage III Likely prerenal in etiology. The patient has responded favorably to volume resuscitation. Continue to monitor urine output. No current indication for renal replacement therapy. 3. Chronic combined cardiomyopathy/paroxysmal A. fib Continue home medications including amiodarone. Coreg remains on hold due to tenuous hemodynamics. 4. Reported COPD/super morbid obesity/hypothyroidism/chronic anemia/anxiety/depression/decreased mobility/obstructive sleep apnea Complicates care, management, recovery and prognosis. Continue home medications as indicated. Continue nocturnal BiPAP therapy per home regimen. CODE status: Discussed CODE status at length including difference between FULL code, DNR-CCA and DNR-CC status. Following discussions about the differences in these status, patient requested FULL CODE STATUS. Advanced Care Planning Face to Face Time: 12 minutes This note was generated with [employer] dictation software. It may contain incorrect words, spelling, and punctuation that were not noted in checking the note before signing. Inpatient E&M: 20895 Subs Hosp L3 Procedures: 18951 Advncd Care Plan 30 Min
[2020-03-18] MEDS: Ipratropium/Albuterol Sulfate 3 ML AMPUL.NEB INHALATION ×3 (07:46→19:18)
--- NOTE | 2020-03-18 10:14 | CASEMGMT ---
BEATRICE spoke w/Anette at [facility], she anticipates they will have a bed for pt on Sunday. BEATRICE explained will send updates and then touch base on Sunday about starting precert. BEATRICE faxed updates, will continue to follow. DARION Garrett
[2020-03-18] MEDS: Heparin Injection (Vial) 5,000 UNIT/ML VIAL 5000 UNIT SC ×2 (10:33→22:15)
[2020-03-18] MEDS: buPROPion 100 MG Tablet PO (10:33)
[2020-03-18] MEDS: Sertraline 50 MG Tablet PO ×2 (10:34→22:15)
[2020-03-18] MEDS: Pantoprazole Sodium 40 MG Tablet PO ×2 (10:34→22:15)
[2020-03-18] MEDS: Amiodarone 200 MG Tablet 400 MG PO (10:34)
--- NOTE | 2020-03-18 12:49 | PN.ID_ITS ---
Patient Problems: Active and Suspected Problems (Last Updated 03/16/20 @ 00:[address] Nahun Ojeda MD) Septic shock (Acute) Abdominal wall cellulitis (Acute) Subjective: Feeling better, no fever - Physical Exam Vitals/I&O's: Vital Signs Temp Pulse Resp BP Pulse Ox 97.9 F 78 18 102/61 95 03/18/20 04:00 03/18/20 07:49 03/18/20 07:49 03/18/20 06:00 03/18/20 07:49 Oxygen Flow Rate (L/min) 2 Oxygen Delivery Method Room Air Weight: 203.6 kg Body Mass Index (BMI) 72.1 Intake and Output for Last 24 Hours 03/16/20 03/17/20 03/18/20 23:59 23:59 23:59 Intake Total 4322.22 / 4322.22 2155.54 / 2555.54 1818 / 1818 Output Total 1100 / 1100 2150 / 2500 650 / 650 Balance 3222.22 / 3222.22 5.54 / 55.54 1168 / 1168 General: Alert, Cooperative, No apparent distress Lungs: Clear to auscultation, Normal air movement Cardiovascular: Regular rate, Regular Rhythm Abdomen: Soft, Non Tender, Obese Skin: Rash Present Microbiology Past 72 Hours 03/17/20 Unknown Tissue - Abdominal Gram Stain - Final 03/17/20 Unknown Tissue - Abdominal Wound Culture - Preliminary No growth-Final to follow 03/17/20 09:45 Swab (Method) Nasal Screen MRSA/MSSA - Final 03/15/20 20:10 Blood Culture (Wb) - Right Hand Blood Culture - Preliminary No growth in 48 hours. 03/15/20 20:00 Blood Culture (Wb) - Right Forearm Blood Culture - Preliminary No growth in 48 hours. 03/17/20 08:30 Mucosa - Nose SARS-CoV-2 Antigen (Rapid) - Final Laboratory Results 03/17/20 04:20: Diff Path Review Reviewed 03/17/20 12:15: S.aureus Protein A PCR NEGATIVE, MRSA (PCR) Negative 03/17/20 14:52: Vancomycin Trough 16.2 H 03/18/20 04:05: WBC 9.8, RBC 3.09 L, Hgb 9.3 L, Hct 30.7 L, MCV 99.4 H, MCH 30.1, MCHC 30.3 L, RDW Std Deviation 58.2 H, RDW Coeff of Florina 16.2 H, Plt Count 122 L, MPV 10.8, Immature Gran % (Auto) 0.900, Neut % (Auto) 85.9 H, Lymph % (Auto) 4.8 L, Geary % (Auto) 6.6, Eos % (Auto) 1.6, Baso % (Auto) 0.2, Absolute Neuts (auto) 8.4 H, Absolute Lymphs (auto) 0.47 L, Nucleated RBC % 0, Differential Comment SCANNED, Platelet Estimate SLT DEC, Hypochromasia RARE, Macrocytosis RARE 03/18/20 04:05: Sodium 140, Potassium 4.2, Chloride 113 H, Carbon Dioxide 23.0, Anion Gap 4 L, BUN 32 H, Creatinine 1.34 H, Estim Creat Clear Calc 52.90, Est GFR (MDRD) Af Amer 70, Est GFR (MDRD) Non-Af 58 L, BUN/Creatinine Ratio 23.9 H, Glucose 74, Calcium 8.1 L, Prealbumin 8.2 L Current Medications Acetaminophen (Acetaminophen 325 Mg Tablet) 650 mg PO Q6H PRN PRN PRN Reason: Pain Score 1-10/Temp > 100.7 F Last Admin: 03/17/20 17:50 Dose: 650 mg Documented by: Albuterol Sulfate (Albuterol 2.5 Mg/3 Ml Vial.Neb.) 2.5 mg INHALATION Q4H PRN PRN PRN Reason: Shortness of breath, wheezing Albuterol/Ipratropium (Ipratropium/Albuterol Sulfate 3 Ml Ampul.Neb) 3 ml INHALATION Q6H.RT [facility] Last Admin: 03/18/20 07:46 Dose: 3 ml Documented by: Amiodarone HCl (Amiodarone 200 Mg Tablet) 400 mg PO DAILY [facility] Last Admin: 03/18/20 10:34 Dose: 400 mg Documented by: Bupropion HCl (Bupropion 100 Mg Tablet) 100 mg PO DAILY [facility] Last Admin: 03/18/20 10:33 Dose: 100 mg Documented by: Diazepam (Diazepam 5 Mg Tablet) 5 mg PO 4X/DAY PRN PRN PRN Reason: SPASMS Docusate Sodium (Docusate Sodium 100 Mg Capsule) 100 mg PO BID [facility] Last Admin: 03/18/20 10:34 Dose: Not Given Documented by: Heparin Sodium (Porcine) (Heparin Injection (Vial) 5,000 Unit/Ml Vial) 5,000 unit SC Q12 [facility] Last Admin: 03/18/20 10:33 Dose: 5,000 unit Documented by: Piperacillin Sod/Tazobactam (Sod 3.375 gm/ Sodium Chloride) 50 mls @ 12.5 mls/hr IV Q8 [facility] Last Infusion: 03/18/20 10:08 Dose: Infused Documented by: Vancomycin HCl 750 mg/ Sodium (Chloride) 265 mls @ 250 mls/hr IV RX TO DOSE PRN; Protocol PRN Reason: RX TO DOSE Sodium Chloride () 250 mls @ 15 mls/hr IV .[id number] PRN PRN Reason: Saline Flush Last Infusion: 03/16/20 20:11 Dose: 0 mls/hr Documented by: Sodium Chloride () 250 mls @ 15 mls/hr IV .[id number] PRN PRN Reason: Additional IVPB Infusion Vancomycin HCl 1,500 mg/ (Sodium Chloride) 530 mls @ 250 mls/hr IV Q12H [facility] Last Admin: 03/18/20 11:08 Dose: 250 mls/hr Documented by: Levothyroxine Sodium (Levothyroxine 25 Mcg Tablet) 25 mcg PO DAILY@0600 [facility] Last Admin: 03/18/20 06:08 Dose: 25 mcg Documented by: Morphine Sulfate (Morphine 2 Mg/Ml Syringe) 2 mg IV Q3H PRN PRN PRN Reason: Pain Score 6-10 Last Admin: 03/16/20 21:24 Dose: 2 mg Documented by: Nutritional Formula (Nutritional Supplement (Danish) Packet) 1 packet PO BIDCM [facility] Last Admin: 03/18/20 10:33 Dose: 1 packet Documented by: Nystatin (Nystatin Powder 15gm Bottle) 1 applic TOPICAL TID [facility]; Protocol Last Admin: 03/18/20 06:08 Dose: 1 applicatio Documented by: Ondansetron HCl (Ondansetron 4 Mg/2 Ml Vial) 4 mg IV Q8H PRN PRN PRN Reason: NAUSEA/VOMITING Oxycodone HCl (Oxycodone 5 Mg Tablet) 10 mg PO Q4H PRN PRN PRN Reason: Pain Score 6-10 Last Admin: 03/18/20 00:42 Dose: 10 mg Documented by: Pantoprazole Sodium (Pantoprazole Sodium 40 Mg Tablet) 40 mg PO BID MATHEUS Last Admin: 03/18/20 10:34 Dose: 40 mg Documented by: Sertraline HCl (Sertraline 50 Mg Tablet) 50 mg PO BID MATHEUS Last Admin: 03/18/20 10:34 Dose: 50 mg Documented by: Sodium Chloride (0.9% Saline Lock 10 Ml Syringe) 10 - 40 ml IV UD PRN PRN Reason: SALINE FLUSH Last Admin: 03/18/20 10:56 Dose: 10 ml Documented by: Medical Necessity - Tobacco Use Smoking Status: Never smoker Route of nutrition/ use of supplements: [] Nutritional Intake: [] IV Site: [] Simon Catheter: [] - Assessment/Plan Antibiotics: [] Assessment/Plan: [] Active and Suspected Problems (Last Updated 03/16/20 @ 00:[address] Nahun Ojeda MD) Septic shock (Acute) Abdominal wall cellulitis (Acute) septic shock with panniculitis - taken to OR 03/[address] Pisano. Surg cx neg so far, cont empiric vanc/zosyn. BP improved. Will follow
--- NOTE | 2020-03-18 12:52 | PCM.PN.HOSP ---
Patient Problems: Active and Suspected Problems (Last Updated 03/16/20 @ 00:[address] Nahun Ojeda MD) Septic shock (Acute) Abdominal wall cellulitis (Acute) Reason for Visit: shock Subjective: Feeling well. Vitals/I&O's: Vital Signs Temp Pulse Resp BP Pulse Ox 36.6 C 78 18 102/61 95 03/18/20 04:00 03/18/20 07:49 03/18/20 07:49 03/18/20 06:00 03/18/20 07:49 Oxygen Flow Rate (L/min) 2 Oxygen Delivery Method Room Air Weight: 203.6 kg Body Mass Index (BMI) 72.1 Intake and Output for Last 24 Hours 03/16/20 03/17/20 03/18/20 23:59 23:59 23:59 Intake Total 4322.22 / 4322.22 2155.54 / 2555.54 1818 / 1818 Output Total 1100 / 1100 2150 / 2500 650 / 650 Balance 3222.22 / 3222.22 5.54 / 55.54 1168 / 1168 General: Alert, Cooperative, No apparent distress HEENT: Atraumatic, Normocephalic Oral: Moist Mucosa, No Gingival or Mucosal Lesions/ Ulcerations Neck: No Nodes, Thyroid Normal Size and Texture Lungs: Clear to auscultation, Normal air movement, No rhonchi, No wheeze, No rales Cardiovascular: Regular rate, Regular Rhythm, Normal S1, Normal S2, No murmurs Abdomen: Non Tender, Non-Distended, Obese Extremities: - - left sided and suprapubic abdominal wall erythema. Psych/Mental Status: Normal Affect, Appropriate Microbiology Past 72 Hours 03/17/20 Unknown Tissue - Abdominal Gram Stain - Final 03/17/20 Unknown Tissue - Abdominal Wound Culture - Preliminary No growth-Final to follow 03/17/20 09:45 Swab (Method) Nasal Screen MRSA/MSSA - Final 03/15/20 20:10 Blood Culture (Wb) - Right Hand Blood Culture - Preliminary No growth in 48 hours. 03/15/20 20:00 Blood Culture (Wb) - Right Forearm Blood Culture - Preliminary No growth in 48 hours. 03/17/20 08:30 Mucosa - Nose SARS-CoV-2 Antigen (Rapid) - Final Laboratory Results 03/17/20 04:20: Diff Path Review Reviewed 03/17/20 12:15: S.aureus Protein A PCR NEGATIVE, MRSA (PCR) Negative 03/17/20 14:52: Vancomycin Trough 16.2 H 03/18/20 04:05: WBC 9.8, RBC 3.09 L, Hgb 9.3 L, Hct 30.7 L, MCV 99.4 H, MCH 30.1, MCHC 30.3 L, RDW Std Deviation 58.2 H, RDW Coeff of Florina 16.2 H, Plt Count 122 L, MPV 10.8, Immature Gran % (Auto) 0.900, Neut % (Auto) 85.9 H, Lymph % (Auto) 4.8 L, [place] % (Auto) 6.6, Eos % (Auto) 1.6, Baso % (Auto) 0.2, Absolute Neuts (auto) 8.4 H, Absolute Lymphs (auto) 0.47 L, Nucleated RBC % 0, Differential Comment SCANNED, Platelet Estimate SLT DEC, Hypochromasia RARE, Macrocytosis RARE 03/18/20 04:05: Sodium 140, Potassium 4.2, Chloride 113 H, Carbon Dioxide 23.0, Anion Gap 4 L, BUN 32 H, Creatinine 1.34 H, Estim Creat Clear Calc 52.90, Est GFR (MDRD) Af Amer 70, Est GFR (MDRD) Non-Af 58 L, BUN/Creatinine Ratio 23.9 H, Glucose 74, Calcium 8.1 L, Prealbumin 8.2 L Current Medications Acetaminophen (Acetaminophen 325 Mg Tablet) 650 mg PO Q6H PRN PRN PRN Reason: Pain Score 1-10/Temp > 100.7 F Last Admin: 03/17/20 17:50 Dose: 650 mg Documented by: Albuterol Sulfate (Albuterol 2.5 Mg/3 Ml Vial.Neb.) 2.5 mg INHALATION Q4H PRN PRN PRN Reason: Shortness of breath, wheezing Albuterol/Ipratropium (Ipratropium/Albuterol Sulfate 3 Ml Ampul.Neb) 3 ml INHALATION Q6H.RT MATHEUS Last Admin: 03/18/20 07:46 Dose: 3 ml Documented by: Amiodarone HCl (Amiodarone 200 Mg Tablet) 400 mg PO DAILY [facility] Last Admin: 03/18/20 10:34 Dose: 400 mg Documented by: Bupropion HCl (Bupropion 100 Mg Tablet) 100 mg PO DAILY [facility] Last Admin: 03/18/20 10:33 Dose: 100 mg Documented by: Diazepam (Diazepam 5 Mg Tablet) 5 mg PO 4X/DAY PRN PRN PRN Reason: SPASMS Docusate Sodium (Docusate Sodium 100 Mg Capsule) 100 mg PO BID [facility] Last Admin: 03/18/20 10:34 Dose: Not Given Documented by: Heparin Sodium (Porcine) (Heparin Injection (Vial) 5,000 Unit/Ml Vial) 5,000 unit SC Q12 [facility] Last Admin: 03/18/20 10:33 Dose: 5,000 unit Documented by: Piperacillin Sod/Tazobactam (Sod 3.375 gm/ Sodium Chloride) 50 mls @ 12.5 mls/hr IV Q8 [facility] Last Infusion: 03/18/20 10:08 Dose: Infused Documented by: Vancomycin HCl 750 mg/ Sodium (Chloride) 265 mls @ 250 mls/hr IV RX TO DOSE PRN; Protocol PRN Reason: RX TO DOSE Sodium Chloride () 250 mls @ 15 mls/hr IV .[id number] PRN PRN Reason: Saline Flush Last Infusion: 03/16/20 20:11 Dose: 0 mls/hr Documented by: Sodium Chloride () 250 mls @ 15 mls/hr IV .[id number] PRN PRN Reason: Additional IVPB Infusion Vancomycin HCl 1,500 mg/ (Sodium Chloride) 530 mls @ 250 mls/hr IV Q12H [facility] Last Admin: 03/18/20 11:08 Dose: 250 mls/hr Documented by: Levothyroxine Sodium (Levothyroxine 25 Mcg Tablet) 25 mcg PO DAILY@0600 [facility] Last Admin: 03/18/20 06:08 Dose: 25 mcg Documented by: Morphine Sulfate (Morphine 2 Mg/Ml Syringe) 2 mg IV Q3H PRN PRN PRN Reason: Pain Score 6-10 Last Admin: 03/16/20 21:24 Dose: 2 mg Documented by: Nutritional Formula (Nutritional Supplement (Danish) Packet) 1 packet PO BIDCM [facility] Last Admin: 03/18/20 10:33 Dose: 1 packet Documented by: Nystatin (Nystatin Powder 15gm Bottle) 1 applic TOPICAL TID [facility]; Protocol Last Admin: 03/18/20 06:08 Dose: 1 applicatio Documented by: Ondansetron HCl (Ondansetron 4 Mg/2 Ml Vial) 4 mg IV Q8H PRN PRN PRN Reason: NAUSEA/VOMITING Oxycodone HCl (Oxycodone 5 Mg Tablet) 10 mg PO Q4H PRN PRN PRN Reason: Pain Score 6-10 Last Admin: 03/18/20 00:42 Dose: 10 mg Documented by: Pantoprazole Sodium (Pantoprazole Sodium 40 Mg Tablet) 40 mg PO BID [facility] Last Admin: 03/18/20 10:34 Dose: 40 mg Documented by: Sertraline HCl (Sertraline 50 Mg Tablet) 50 mg PO BID [facility] Last Admin: 03/18/20 10:34 Dose: 50 mg Documented by: Sodium Chloride (0.9% Saline Lock 10 Ml Syringe) 10 - 40 ml IV UD PRN PRN Reason: SALINE FLUSH Last Admin: 03/18/20 10:56 Dose: 10 ml Documented by: Medical Necessity - Tobacco Use Smoking Status: Never smoker Assessment/Plan All Active Problems (Last Updated 03/16/20 @ 00:[address] Nahun Ojeda MD) Septic shock (Acute) Abdominal wall cellulitis (Acute) 1. Septic shock resolved 2/2 #2 off pressors 2. abdominal wall cellulitis and necrotizing fasciitis on pip/tazo and vanc 03/17: abdominal panniculectomy. necrotizing fascia noted. continue wound care, likely will need wound vac. follow up wound cultures 3. LARRY improving monitor on IVF 4. Chronic condition: stable, but complicates care COPD morbid obesity pAfib hypothyroid anemia 5. VTE prophylaxis: SQ heparin Transfer out of MICU. Note: due to patient's body habitus, tele lead do not fiber picker any rhythm. Inpatient E&M: 91168 Subs Hosp L2
--- NOTE | 2020-03-18 13:09 | PCM.PN.SRG ---
Patient Problems: Active and Suspected Problems (Last Updated 03/16/20 @ 00:[address] Nahun Ojeda MD) Septic shock (Acute) Abdominal wall cellulitis (Acute) Subjective: Post op day #1 Patient resting in bed. He states his pain is well controlled. He is in good spirits. - Physical Exam Vitals/I&O's: Vital Signs Temp Pulse Resp BP Pulse Ox 97.9 F 78 18 102/61 95 03/18/20 04:00 03/18/20 07:49 03/18/20 07:49 03/18/20 06:00 03/18/20 07:49 Oxygen Flow Rate (L/min) 2 Oxygen Delivery Method Room Air Weight: 448 lb 13.778 oz Body Mass Index (BMI) 72.1 Intake and Output for Last 24 Hours 03/16/20 03/17/20 03/18/20 23:59 23:59 23:59 Intake Total 4322.22 / 4322.22 2155.54 / 2555.54 1818 / 1818 Output Total 1100 / 1100 2150 / 2500 650 / 650 Balance 3222.22 / 3222.22 5.54 / 55.54 1168 / 1168 General: Alert, Oriented x3, Cooperative HEENT: Atraumatic Oral: Moist Mucosa Lungs: Normal air movement Cardiovascular: Regular rate Abdomen: Obese Extremities: Capillary Refill Less than 3 Seconds, Edema Skin: Ulcer/ Wound - Left abdominal wound operative dressing removed. Wound is stable. No active bleeding noted. Draining copious amounts of serous drainage. Wound packed with Kerlix and topped with ABDs. Musculoskeletal: No Tenderness to Palpation of Joints or Extremities Neurological: Cranial nerves II-XII grossly intact Psych/Mental Status: Normal Affect, Appropriate Microbiology Past 72 Hours 03/17/20 Unknown Tissue - Abdominal Gram Stain - Final 03/17/20 Unknown Tissue - Abdominal Wound Culture - Preliminary No growth-Final to follow 03/17/20 09:45 Swab (Method) Nasal Screen MRSA/MSSA - Final 03/15/20 20:10 Blood Culture (Wb) - Right Hand Blood Culture - Preliminary No growth in 48 hours. 03/15/20 20:00 Blood Culture (Wb) - Right Forearm Blood Culture - Preliminary No growth in 48 hours. 03/17/20 08:30 Mucosa - Nose SARS-CoV-2 Antigen (Rapid) - Final Laboratory Results 03/17/20 04:20: Diff Path Review Reviewed 03/17/20 12:15: S.aureus Protein A PCR NEGATIVE, MRSA (PCR) Negative 03/17/20 14:52: Vancomycin Trough 16.2 H 03/18/20 04:05: WBC 9.8, RBC 3.09 L, Hgb 9.3 L, Hct 30.7 L, MCV 99.4 H, MCH 30.1, MCHC 30.3 L, RDW Std Deviation 58.2 H, RDW Coeff of Florina 16.2 H, Plt Count 122 L, MPV 10.8, Immature Gran % (Auto) 0.900, Neut % (Auto) 85.9 H, Lymph % (Auto) 4.8 L, [place] % (Auto) 6.6, Eos % (Auto) 1.6, Baso % (Auto) 0.2, Absolute Neuts (auto) 8.4 H, Absolute Lymphs (auto) 0.47 L, Nucleated RBC % 0, Differential Comment SCANNED, Platelet Estimate SLT DEC, Hypochromasia RARE, Macrocytosis RARE 03/18/20 04:05: Sodium 140, Potassium 4.2, Chloride 113 H, Carbon Dioxide 23.0, Anion Gap 4 L, BUN 32 H, Creatinine 1.34 H, Estim Creat Clear Calc 52.90, Est GFR (MDRD) Af Amer 70, Est GFR (MDRD) Non-Af 58 L, BUN/Creatinine Ratio 23.9 H, Glucose 74, Calcium 8.1 L, Prealbumin 8.2 L Current Medications Acetaminophen (Acetaminophen 325 Mg Tablet) 650 mg PO Q6H PRN PRN PRN Reason: Pain Score 1-10/Temp > 100.7 F Last Admin: 03/17/20 17:50 Dose: 650 mg Documented by: Albuterol Sulfate (Albuterol 2.5 Mg/3 Ml Vial.Neb.) 2.5 mg INHALATION Q4H PRN PRN PRN Reason: Shortness of breath, wheezing Albuterol/Ipratropium (Ipratropium/Albuterol Sulfate 3 Ml Ampul.Neb) 3 ml INHALATION Q6H.RT MATHEUS Last Admin: 03/18/20 07:46 Dose: 3 ml Documented by: Amiodarone HCl (Amiodarone 200 Mg Tablet) 400 mg PO DAILY [facility] Last Admin: 03/18/20 10:34 Dose: 400 mg Documented by: Bupropion HCl (Bupropion 100 Mg Tablet) 100 mg PO DAILY [facility] Last Admin: 03/18/20 10:33 Dose: 100 mg Documented by: Carvedilol (Carvedilol 3.125 Mg Tablet) 3.125 mg PO BID [facility] Diazepam (Diazepam 5 Mg Tablet) 5 mg PO 4X/DAY PRN PRN PRN Reason: SPASMS Docusate Sodium (Docusate Sodium 100 Mg Capsule) 100 mg PO BID [facility] Last Admin: 03/18/20 10:34 Dose: Not Given Documented by: Heparin Sodium (Porcine) (Heparin Injection (Vial) 5,000 Unit/Ml Vial) 5,000 unit SC Q12 [facility] Last Admin: 03/18/20 10:33 Dose: 5,000 unit Documented by: Piperacillin Sod/Tazobactam (Sod 3.375 gm/ Sodium Chloride) 50 mls @ 12.5 mls/hr IV Q8 [facility] Last Infusion: 03/18/20 10:08 Dose: Infused Documented by: Vancomycin HCl 750 mg/ Sodium (Chloride) 265 mls @ 250 mls/hr IV RX TO DOSE PRN; Protocol PRN Reason: RX TO DOSE Sodium Chloride () 250 mls @ 15 mls/hr IV .[id number] PRN PRN Reason: Saline Flush Last Infusion: 03/16/20 20:11 Dose: 0 mls/hr Documented by: Sodium Chloride () 250 mls @ 15 mls/hr IV .[id number] PRN PRN Reason: Additional IVPB Infusion Vancomycin HCl 1,500 mg/ (Sodium Chloride) 530 mls @ 250 mls/hr IV Q12H [facility] Last Admin: 03/18/20 11:08 Dose: 250 mls/hr Documented by: Levothyroxine Sodium (Levothyroxine 25 Mcg Tablet) 25 mcg PO DAILY@0600 [facility] Last Admin: 03/18/20 06:08 Dose: 25 mcg Documented by: Morphine Sulfate (Morphine 2 Mg/Ml Syringe) 2 mg IV Q3H PRN PRN PRN Reason: Pain Score 6-10 Last Admin: 03/16/20 21:24 Dose: 2 mg Documented by: Nutritional Formula (Nutritional Supplement (Danish) Packet) 1 packet PO BIDCM [facility] Last Admin: 03/18/20 10:33 Dose: 1 packet Documented by: Nystatin (Nystatin Powder 15gm Bottle) 1 applic TOPICAL TID [facility]; Protocol Last Admin: 03/18/20 06:08 Dose: 1 applicatio Documented by: Ondansetron HCl (Ondansetron 4 Mg/2 Ml Vial) 4 mg IV Q8H PRN PRN PRN Reason: NAUSEA/VOMITING Oxycodone HCl (Oxycodone 5 Mg Tablet) 10 mg PO Q4H PRN PRN PRN Reason: Pain Score 6-10 Last Admin: 03/18/20 00:42 Dose: 10 mg Documented by: Pantoprazole Sodium (Pantoprazole Sodium 40 Mg Tablet) 40 mg PO BID [facility] Last Admin: 03/18/20 10:34 Dose: 40 mg Documented by: Sertraline HCl (Sertraline 50 Mg Tablet) 50 mg PO BID [facility] Last Admin: 03/18/20 10:34 Dose: 50 mg Documented by: Sodium Chloride (0.9% Saline Lock 10 Ml Syringe) 10 - 40 ml IV UD PRN PRN Reason: SALINE FLUSH Last Admin: 03/18/20 10:56 Dose: 10 ml Documented by: Medical Necessity - Tobacco Use Smoking Status: Never smoker Assessment/Plan All Active Problems (Last Updated 03/16/20 @ 00:[address] Nahun Ojeda MD) Septic shock (Acute) Abdominal wall cellulitis (Acute) 1. Massive abdominal panniculus with panniculitis and extensive cellulitis. 2. Necrotizing soft tissue infection. 3. Recent weight loss. 4. Abdominal wall skin crease intertrigo. 5. Painful lymphedema left lower abdominal wall. 6. Lumbar back pain. 7. History of laparoscopic ventral hernia repair with mesh. 8. History of DVT. 9. Sepsis, resolving. Left abdominal operative dressing removed. Wound is stable. No active bleeding. Draining copious amounts of serous fluid. Redressed wound with Kerlix and topped with ABD. The plan is to have one of the nurses who feels comfortable applying a wound VAC to do that over the next day or so. Until the wound VAC is place, may do daily and prn dressing changes due to the amount of drainage occurring. Operative culture is pending. He is currently receiving Zosyn and Vancomycin. ID is consulted.
[2020-03-18] MEDS: Morphine 2 MG/ML Syringe IV (19:17)
[2020-03-18] MEDS: diazePAM 5 MG Tablet PO (22:47)
[2020-03-18 23:01] LABS: Vancomycin, Trough Level 21.4 ug/mL (5.0-15.0)
[2020-03-19] VITALS (10 sets, daily range): BP systolic 84–104; BP diastolic 40–54; PULSE 60–81; RESP 18–20; TEMP 36.6–37.2; O2SAT 93–98
--- NOTE | 2020-03-19 00:16 | PHA.PHARE_ITS ---
Consult Pharmacy has been consulted to manage selected antiobiotic: Vancomycin Type of Consult: Follow-up Suspected Infection: Sepsis Prior Doses of Antibiotics Received/Current Regimen: Medications Vancomycin HCl 1,500 mg/ (Sodium Chloride) 530 mls @ 250 mls/hr IV Q12H [facility] Stop: 03/19/20 01:09 Last Admin: 03/18/20 23:00 Dose: 250 mls/hr Vancomycin HCl 1,250 mg/ (Sodium Chloride) 275 mls @ 167 mls/hr IV Q12H [facility] Labs: Sodium 140 mmol/L (136-145) 03/18/20 04:05 Potassium 4.2 mmol/L (3.5-5.1) 03/18/20 04:05 Chloride 113 mmol/L (98-107) H 03/18/20 04:05 Carbon Dioxide 23.0 mmol/L (21.0-32.0) 03/18/20 04:05 Anion Gap 4 (5-15) L 03/18/20 04:05 BUN 32 mg/dL (7-18) H 03/18/20 04:05 Creatinine 1.34 mg/dL (0.70-1.30) H 03/18/20 04:05 Est GFR (MDRD) Af Amer 70 mL/min (>60) 03/18/20 04:05 Est GFR (MDRD) Non-Af 58 mL/min (>60) L 03/18/20 04:05 BUN/Creatinine Ratio 23.9 RATIO (10-20) H 03/18/20 04:05 Glucose 74 mg/dL (74-106) 03/18/20 04:05 Vancomycin Trough 21.4 ug/mL (5.0-15.0) H 03/18/20 22:25 Microbiology: Microbiology 03/17/20 Unknown Tissue - Abdominal Gram Stain - Final 03/17/20 Unknown Tissue - Abdominal Wound Culture - Preliminary No growth-Final to follow 03/17/20 Unknown Tissue - Abdominal Anaerobic Culture - Preliminary No growth in 48 hours. 03/17/20 09:45 Swab (Method) Nasal Screen MRSA/MSSA - Final 03/15/20 20:10 Blood Culture (Wb) - Right Hand Blood Culture - Preliminary No growth in 48 hours. 03/15/20 20:00 Blood Culture (Wb) - Right Forearm Blood Culture - Preliminary No growth in 48 hours. 03/17/20 08:30 Mucosa - Nose SARS-CoV-2 Antigen (Rapid) - Final Weight used for dosin.6 kg Estimated Creatinine Clearance: 53 Goal Trough: 15-20 mcg/mL Pharmacy Plan for Drug Dosing: Vancomycin trough level of 21.4 was above target range of 15-20. Will adjust dose to 1250mg q12h and re-draw trough prior to 4th dose of new regimen. Pharmacy Service will continue to monitor and adjust dosing as required. Follow-Up Labs: Trough Vancomycin Labs to be done on [date and time ordered]: 03/20/20 @1958
--- NOTE | 2020-03-19 01:57 | NURSING ---
Covid 19 emergency charting in effect.
[2020-03-19] MEDS: Acetaminophen 325 MG Tablet 650 MG PO ×2 (03:15→23:11)
[2020-03-19] MEDS: Nystatin Powder 15gm Bottle 1 APPLIC TOPICAL ×3 (06:20→21:46)
[2020-03-19] MEDS: Levothyroxine 25 MCG TABLET PO (06:21)
[2020-03-19 06:34] LABS: Absolute Lymphocyte Count 0.43 X10^3/uL (0.83-4.51); Basophil# 0.03 X10^3/uL; Basophil% 0.3 % (0-1); Eosinophil# 0.25 X10^3/uL; Eosinophils% 2.6 % (0-5); Hematocrit 27.6 % (40-54); Hemoglobin 8.2 g/dL (13.0-16.5); Lymphocyte # 0.43 X10^3/ul (4.0); Lymphocyte % 4.5 % (19-41); Mean Corp Hgb Conc 29.7 g/dL (32-36); Mean Corpuscular Hgb 29.3 pg (27.0-32.0); Mean Corpuscular Volume 98.6 fL (80-94); Mean Platelet Vol. 10.8 fl (6.2-12.0); Monocyte# 0.82 X10^3/uL; Monocyte% 8.6 % (0-10); NRBC Flagged by Analyzer 0 % (0-5); Neutrophil # 7.96 X10^3/uL (2.7-7.7); Neutrophil % 83.7 % (47-70); POSITIVE DIFFERENTIAL YES; Platelet Count 122 K/mm3 (150-450); RBC Distribution Width CV 16.2 % (11.6-14.6); RBC Distribution Width SD 58.6 fl (35.1-43.9); White Blood Count 9.5 K/mm3 (4.4-11.0)
[2020-03-19 06:35] LABS: Differential Indicated SCAN CRITERIA MET
[2020-03-19 06:40] LABS: Anion Gap 5 (5-15); BUN 35 mg/dL (7-18); BUN/Creat Ratio 29.9 RATIO (10-20); Chloride 112 mmol/L (98-107); Creatinine, Serum 1.17 mg/dL (0.70-1.30); EST Glomerular Filtration Rate 68 mL/min (>60); Est Glom Filt Rate - Afr Amer 82 mL/min (>60); Estimated Creatinine Clearance 60.59 ml/min; Glucose 85 mg/dL (74-106); Potassium 4.4 mmol/L (3.5-5.1); Sodium Level 138 mmol/L (136-145)
[2020-03-19 06:57] LABS: Differential Comment SCANNED; Target Cells 2+
--- NOTE | 2020-03-19 09:16 | PN_ITS ---
Patient Problems: Active and Suspected Problems (Last Updated 03/16/20 @ 00:[address] Nahun Ojeda MD) Septic shock (Acute) Abdominal wall cellulitis (Acute) Reason for Visit: Follow-up for necrotizing fasciitis/deep tissue infection with panniculitis. Objective: Patient blood pressure is a 98/40, map 67. Patient blood pressure is well is on the lower side. As per nursing staff, patient's urine output was also dark yellow, 850 mill since midnight today. Patient also had about 500 mL drainage, serous in wound VAC 1 L of normal saline bolus ordered over 2 hours. Physical exam General: Alert, Oriented x3, Cooperative. BMI 72.1 kg/m? HEENT: Atraumatic, PERRLA, EOMI, Normocephalic Oral: No Gingival or Mucosal Lesions/ Ulcerations Neck: Supple, No JVD, Negative Carotid Bruits Lungs: Air entry diminished in bilateral lung bases. No crepitation/rhonchi Cardiovascular: Regular rate, Regular Rhythm, Normal S1, Normal S2, No murmurs Abdomen: Bowel Sounds Present, Soft, Non Tender, Non-Distended : Fully catheter. Yellow urine. No renal angle tenderness. No suprapubic tenderness. Extremities: No edema, Capillary Refill Less than 3 Seconds Skin: Wound VAC on the left quadrant of lower abdominal pannus. Musculoskeletal: Patient ambulates with the aid, walker. At the best, he walks 20 feet on baseline. Bilateral lower extremity arthritis. Left shoulder rotator cuff injury Neurological: Cranial nerves II-XII grossly intact, Deep Tendon Reflexes 2+/4 and Symmetrical, Neuro grossly intact Psych/Mental Status: Normal Affect, Appropriate. Vitals/I&O's: Vital Signs Temp Pulse Resp BP Pulse Ox 98.9 F 69 18 97/53 L 93 03/19/20 08:44 03/19/20 08:44 03/19/20 08:44 03/19/20 08:44 03/19/20 08:44 Oxygen Flow Rate (L/min) 2 Oxygen Delivery Method CPAP Weight: 448 lb 13.778 oz Body Mass Index (BMI) 72.1 Intake and Output for Last 24 Hours 03/17/20 03/18/20 03/19/20 23:59 23:59 23:59 Intake Total 2155.54 / 2555.54 3102.5 / 3102.5 680 / 680 Output Total 2150 / 2500 1775 / 1775 1400 / 1400 Balance 5.54 / 55.54 1327.5 / 1327.5 -720 / -720 Microbiology Past 72 Hours 03/17/20 Unknown Tissue - Abdominal Gram Stain - Final 03/17/20 Unknown Tissue - Abdominal Wound Culture - Preliminary No growth-Final to follow 03/17/20 Unknown Tissue - Abdominal Anaerobic Culture - Preliminary No growth in 48 hours. 03/17/20 09:45 Swab (Method) Nasal Screen MRSA/MSSA - Final 03/15/20 20:10 Blood Culture (Wb) - Right Hand Blood Culture - Preliminary No growth in 48 hours. 03/15/20 20:00 Blood Culture (Wb) - Right Forearm Blood Culture - Preliminary No growth in 48 hours. 03/17/20 08:30 Mucosa - Nose SARS-CoV-2 Antigen (Rapid) - Final Laboratory Results 03/18/20 22:25: Vancomycin Trough 21.4 H 03/19/20 06:00: WBC 9.5, RBC 2.80 L, Hgb 8.2 L, Hct 27.6 L, MCV 98.6 H, MCH 29.3, MCHC 29.7 L, RDW Std Deviation 58.6 H, RDW Coeff of Florina 16.2 H, Plt Count 122 L, MPV 10.8, Immature Gran % (Auto) 0.300, Neut % (Auto) 83.7 H, Lymph % (Auto) 4.5 L, [place] % (Auto) 8.6, Eos % (Auto) 2.6, Baso % (Auto) 0.3, Absolute Neuts (auto) 8.0 H, Absolute Lymphs (auto) 0.43 L, Nucleated RBC % 0, Differential Comment SCANNED, Target Cells 2+ 03/19/20 06:00: Sodium 138, Potassium 4.4, Chloride 112 H, Carbon Dioxide 21.0, Anion Gap 5, BUN 35 H, Creatinine 1.17, Estim Creat Clear Calc 60.59, Est GFR (MDRD) Af Amer 82, Est GFR (MDRD) Non-Af 68, BUN/Creatinine Ratio 29.9 H, Glucose 85, Calcium 8.0 L Current Medications Acetaminophen (Acetaminophen 325 Mg Tablet) 650 mg PO Q6H PRN PRN PRN Reason: Pain Score 1-10/Temp > 100.7 F Last Admin: 03/19/20 03:15 Dose: 650 mg Documented by: Albuterol Sulfate (Albuterol 2.5 Mg/3 Ml Vial.Neb.) 2.5 mg INHALATION Q4H PRN PRN PRN Reason: Shortness of breath, wheezing Albuterol/Ipratropium (Ipratropium/Albuterol Sulfate 3 Ml Ampul.Neb) 3 ml INHALATION Q6H.RT [facility] Last Admin: 03/18/20 19:18 Dose: 3 ml Documented by: Amiodarone HCl (Amiodarone 200 Mg Tablet) 400 mg PO DAILY [facility] Last Admin: 03/18/20 10:34 Dose: 400 mg Documented by: Bupropion HCl (Bupropion 100 Mg Tablet) 100 mg PO DAILY [facility] Last Admin: 03/18/20 10:33 Dose: 100 mg Documented by: Carvedilol (Carvedilol 3.125 Mg Tablet) 3.125 mg PO BIDCM [facility] Last Admin: 03/19/20 08:40 Dose: Not Given Documented by: Diazepam (Diazepam 5 Mg Tablet) 5 mg PO 4X/DAY PRN PRN PRN Reason: SPASMS Last Admin: 03/18/20 22:47 Dose: 5 mg Documented by: Docusate Sodium (Docusate Sodium 100 Mg Capsule) 100 mg PO BID [facility] Last Admin: 03/18/20 22:12 Dose: Not Given Documented by: Heparin Sodium (Porcine) (Heparin Injection (Vial) 5,000 Unit/Ml Vial) 5,000 unit SC Q12 [facility] Last Admin: 03/18/20 22:15 Dose: 5,000 unit Documented by: Piperacillin Sod/Tazobactam (Sod 3.375 gm/ Sodium Chloride) 50 mls @ 12.5 mls/hr IV Q8 [facility] Last Admin: 03/19/20 06:19 Dose: 12.5 mls/hr Documented by: Vancomycin HCl 750 mg/ Sodium (Chloride) 265 mls @ 250 mls/hr IV RX TO DOSE PRN; Protocol PRN Reason: RX TO DOSE Sodium Chloride () 250 mls @ 15 mls/hr IV .[id number] PRN PRN Reason: Saline Flush Last Infusion: 03/18/20 23:21 Dose: 0 mls/hr Documented by: Sodium Chloride () 250 mls @ 15 mls/hr IV .[id number] PRN PRN Reason: Additional IVPB Infusion Vancomycin HCl 1,250 mg/ (Sodium Chloride) 275 mls @ 167 mls/hr IV Q12H [facility] Levothyroxine Sodium (Levothyroxine 25 Mcg Tablet) 25 mcg PO DAILY@0600 [facility] Last Admin: 03/19/20 06:21 Dose: 25 mcg Documented by: Morphine Sulfate (Morphine 2 Mg/Ml Syringe) 2 mg IV Q3H PRN PRN PRN Reason: Pain Score 6-10 Last Admin: 03/18/20 19:17 Dose: 2 mg Documented by: Nutritional Formula ([facility]utritional Supp[facility] (Danish) Packet) [facility] Last Admin: 03/19/20 08:41 Dose: 1 packet Documented by: Nystatin (Nystatin Powder 15gm Bottle) 1 applic TOPICAL TID [facility]; Protocol Last Admin: 03/19/20 06:20 Dose: 1 applicatio Documented by: Ondansetron HCl (Ondansetron 4 Mg/2 Ml Vial) 4 mg IV Q8H PRN PRN PRN Reason: NAUSEA/VOMITING Oxycodone HCl (Oxycodone 5 Mg Tablet) 10 mg PO Q4H PRN PRN PRN Reason: Pain Score 6-10 Last Admin: 03/18/20 20:07 Dose: 10 mg Documented by: Pantoprazole Sodium (Pantoprazole Sodium 40 Mg Tablet) 40 mg PO BID [facility] Last Admin: 03/18/20 22:15 Dose: 40 mg Documented by: Sertraline HCl (Sertraline 50 Mg Tablet) 50 mg PO BID [facility] Last Admin: 03/18/20 22:15 Dose: 50 mg Documented by: Sodium Chloride (0.9% Saline Lock 10 Ml Syringe) 10 - 40 ml IV UD PRN PRN Reason: SALINE FLUSH Last Admin: 03/18/20 19:18 Dose: 10 ml Documented by: STROKE Vital Signs/Narrative: Vital Signs Temp Pulse Resp BP Pulse Ox 03/19/20 08:44 98.9 F 69 18 97/53 L 93 03/19/20 07:25 94 03/19/20 06:14 98 F 70 18 98/40 L 93 Medical Necessity - Tobacco Use Smoking Status: Never smoker Assessment/Plan All Active Problems (Last Updated 03/16/20 @ 00:[address] Nahun Ojeda MD) Septic shock (Acute) Abdominal wall cellulitis (Acute) 1. Septic shock secondary to abdominal wall cellulitis and necrotizing fasciitis: Has resolved. Patient off vasopressor and transferred from ICU to [facility] floor. Patient is still has low blood pressure, systolic blood pressure in 90s versus probably his baseline. With large drain output and concentrated urine, 1 L of normal saline bolus over 2 hours ordered. 2. abdominal wall cellulitis and necrotizing fasciitis: Patient had abdominal panniculectomy on 03/17. Necrotizing fasciitis noted. On Vanco and Zosyn. Operative tissue culture from 03/17 shows no growth. Blood culture negative for more than 48 hours. Patient had wound VAC. 3. LARRY: Improving. 4. Chronic condition: Multiple comorbidities complicates the present care and expect difficult and delay recovery * COPD: No exacerbation * morbid obesity * pAfib: On amiodarone, carvedilol * hypothyroid * anemia: Normocytic normochromic. Hemoglobin dropped from 10.2 on 03/16-8.2 on 03/19. No obvious active bleeding. Monitor CBC. 5. VTE prophylaxis: SQ heparin Inpatient E&M: 76411 Subs Hosp L2
[2020-03-19] MEDS: Heparin Injection (Vial) 5,000 UNIT/ML VIAL 5000 UNIT SC ×2 (11:06→21:39)
[2020-03-19] MEDS: buPROPion 100 MG Tablet PO (11:07)
[2020-03-19] MEDS: Docusate Sodium 100 MG Capsule PO ×2 (11:07→21:39)
[2020-03-19] MEDS: Sertraline 50 MG Tablet PO ×2 (11:08→21:39)
[2020-03-19] MEDS: Amiodarone 200 MG Tablet 400 MG PO (11:08)
[2020-03-19] MEDS: Pantoprazole Sodium 40 MG Tablet PO ×2 (11:08→21:46)
[2020-03-19] MEDS: 0.9% Normal Saline 1,000 ML 500 ML IV (15:25)
[2020-03-19] MEDS: Ipratropium/Albuterol Sulfate 3 ML AMPUL.NEB INHALATION (19:08)
[2020-03-20] VITALS (14 sets, daily range): BP systolic 82–132; BP diastolic 43–97; PULSE 56–150; RESP 16–24; TEMP 36.4–36.9; O2SAT 94–98
[2020-03-20] MEDS: diazePAM 5 MG Tablet PO (01:47)
[2020-03-20 05:45] LABS: Absolute Lymphocyte Count 0.72 X10^3/uL (0.83-4.51); Absolute Neutrophil Count 5.5 X10^3/uL (2.0-7.7); Basophil# 0.02 X10^3/uL; Basophil% 0.3 % (0-1); Eosinophil# 0.28 X10^3/uL; Eosinophils% 3.8 % (0-5); Hematocrit 29.4 % (40-54); Hemoglobin 8.8 g/dL (13.0-16.5); Lymphocyte # 0.72 X10^3/ul (4.0); Lymphocyte % 9.8 % (19-41); Mean Corp Hgb Conc 29.9 g/dL (32-36); Mean Corpuscular Hgb 29.4 pg (27.0-32.0); Mean Corpuscular Volume 98.3 fL (80-94); Mean Platelet Vol. 11.2 fl (6.2-12.0); Monocyte# 0.76 X10^3/uL; Monocyte% 10.4 % (0-10); NRBC Flagged by Analyzer 0 % (0-5); Neutrophil # 5.52 X10^3/uL (2.7-7.7); Neutrophil % 75.2 % (47-70); Platelet Count 124 K/mm3 (150-450); RBC Distribution Width SD 57.1 fl (35.1-43.9); RET-HE 23.6 pg (30-35); Red Blood Count 2.99 M/mm3 (4.6-6.2); Reticulocyte Count 1.45 % (0.5-1.5); White Blood Count 7.3 K/mm3 (4.4-11.0)
[2020-03-20] MEDS: Nystatin Powder 15gm Bottle 1 APPLIC TOPICAL ×3 (05:50→22:32)
[2020-03-20] MEDS: Levothyroxine 25 MCG TABLET PO (05:51)
[2020-03-20 06:05] LABS: ALB/GLOB Ratio 0.6 RATIO (0.9-2.4); Albumin, Serum 2.3 g/dL (3.2-5.0); BUN 34 mg/dL (7-18); BUN/Creat Ratio 30.1 RATIO (10-20); Calcium,Total 8.4 mg/dL (8.5-10.1); Creatinine, Serum 1.13 mg/dL (0.70-1.30); EST Glomerular Filtration Rate 70 mL/min (>60); Est Glom Filt Rate - Afr Amer 85 mL/min (>60); Estimated Creatinine Clearance 62.73 ml/min; Globulin 3.6 g/dL (2.2-4.2); Glucose 83 mg/dL (74-106); Protein, Total 5.9 g/dL (6.4-8.2)
[2020-03-20 06:06] LABS: AST(SGOT) 8 U/L (15-37); Alanine Aminotransfer ALT/SGPT 15 U/L (16-61); Alkaline Phosphatase 99 U/L (45-117); Anion Gap 5 (5-15); Chloride 114 mmol/L (98-107); Ferritin 54 ng/mL (26-388); Iron 49 ug/dL (65-175); Iron Binding Capacity,Total 313 ug/dL (250-450); PERCENT IRON SATURATION 15.7 % (15.0-55.0); Potassium 4.8 mmol/L (3.5-5.1); Sodium Level 142 mmol/L (136-145)
[2020-03-20] MEDS: Ipratropium/Albuterol Sulfate 3 ML AMPUL.NEB INHALATION ×3 (07:05→19:54)
[2020-03-20] MEDS: Pantoprazole Sodium 40 MG Tablet PO ×2 (09:01→22:33)
[2020-03-20] MEDS: oxyCODONE 5 MG Tablet 10 MG PO ×3 (09:01→22:39)
[2020-03-20] MEDS: Sertraline 50 MG Tablet PO ×2 (09:01→22:33)
[2020-03-20] MEDS: Amiodarone 200 MG Tablet 400 MG PO (09:01)
[2020-03-20] MEDS: Heparin Injection (Vial) 5,000 UNIT/ML VIAL 5000 UNIT SC ×2 (09:02→22:31)
[2020-03-20] MEDS: buPROPion 100 MG Tablet PO (09:06)
[2020-03-20] MEDS: Metoprolol Tartrate 25 MG Tablet PO (11:21)
[2020-03-20] MEDS: Carvedilol 3.125 MG TABLET PO (11:29)
--- NOTE | 2020-03-20 13:20 | PCM.PN.HOSP ---
Patient Problems: Active and Suspected Problems (Last Updated 03/16/20 @ 00:[address] Nahun Ojeda MD) Septic shock (Acute) Abdominal wall cellulitis (Acute) Reason for Visit: Follow-up for cellulitis of abdominal wall and mild hypotension with tachycardia Objective: Patient does not have dizziness, chest pain, shortness of breath or mental status. His heart rate was 75 AND 132/61 and in the afternoon heart rate 150 and blood pressure 93/69. Patient did not had Coreg last night. Physical exam General: Alert, Oriented x3, Cooperative. BMI 72.1 kg/m? HEENT: Atraumatic, PERRLA, EOMI, Normocephalic Oral: No Gingival or Mucosal Lesions/ Ulcerations Neck: Supple, No JVD, Negative Carotid Bruits Lungs: Air entry diminished in bilateral lung bases. No crepitation/rhonchi Cardiovascular: Regular rate, Regular Rhythm, Normal S1, Normal S2, No murmurs Abdomen: Bowel Sounds Present, Soft, Non Tender, Non-Distended : Fully catheter. Yellow urine. No renal angle tenderness. No suprapubic tenderness. Extremities: No edema, Capillary Refill Less than 3 Seconds Skin: Wound VAC on the left quadrant of lower abdominal pannus. Drainage amount 2000 ML ON 03/19. Musculoskeletal: Patient ambulates with the aid, walker. he walks 20 feet on baseline. Bilateral lower extremity arthritis. Left shoulder rotator cuff injury Neurological: Cranial nerves II-XII grossly intact, Deep Tendon Reflexes 2+/4 and Symmetrical, Neuro grossly intact Psych/Mental Status: Normal Affect, Appropriate. Vitals/I&O's: Vital Signs Temp Pulse Resp BP Pulse Ox 98.4 F 150 H 16 93/69 96 03/20/20 08:54 03/20/20 11:21 03/20/20 08:54 03/20/20 11:07 03/20/20 08:54 Oxygen Flow Rate (L/min) 2 Oxygen Delivery Method Room Air Weight: 448 lb 13.778 oz Body Mass Index (BMI) 72.1 Intake and Output for Last 24 Hours 03/18/20 03/19/20 03/20/20 23:59 23:59 23:59 Intake Total 3102.5 / 3102.5 4155 / 4155 1041.25 / 1041.25 Output Total 1775 / 1775 3725 / 3725 450 / 450 Balance 1327.5 / 1327.5 430 / 430 591.25 / 591.25 Microbiology Past 72 Hours 03/17/20 Unknown Tissue - Abdominal Gram Stain - Final 03/17/20 Unknown Tissue - Abdominal Wound Culture - Final No growth aerobically. 03/17/20 Unknown Tissue - Abdominal Anaerobic Culture - Preliminary No growth in 48 hours. 03/17/20 09:45 Swab (Method) Nasal Screen MRSA/MSSA - Final 03/15/20 20:10 Blood Culture (Wb) - Right Hand Blood Culture - Preliminary No growth in 48 hours. 03/15/20 20:00 Blood Culture (Wb) - Right Forearm Blood Culture - Preliminary No growth in 48 hours. 03/17/20 08:30 Mucosa - Nose SARS-CoV-2 Antigen (Rapid) - Final Laboratory Results 03/17/20 10:00: Crossmatch See Detail 03/20/20 05:20: WBC 7.3, RBC 2.99 L, Hgb 8.8 L, Hct 29.4 L, MCV 98.3 H, MCH 29.4, MCHC 29.9 L, RDW Std Deviation 57.1 H, RDW Coeff of Florina 16.0 H, Plt Count 124 L, MPV 11.2, Immature Gran % (Auto) 0.500, Neut % (Auto) 75.2 H, Lymph % (Auto) 9.8 L, [place] % (Auto) 10.4 H, Eos % (Auto) 3.8, Baso % (Auto) 0.3, Absolute Neuts (auto) 5.5, Absolute Lymphs (auto) 0.72 L, Nucleated RBC % 0, Retic Count 1.45, Immature Retic Fraction 22.00 H, Retic Hgb Equivalent 23.6 L 03/20/20 05:20: Sodium 142, Potassium 4.8, Chloride 114 H, Carbon Dioxide 23.0, Anion Gap 5, BUN 34 H, Creatinine 1.13, Estim Creat Clear Calc 62.73, Est GFR (MDRD) Af Amer 85, Est GFR (MDRD) Non-Af 70, BUN/Creatinine Ratio 30.1 H, Glucose 83, Calcium 8.4 L, Iron 49 L, TIBC 313, Iron Saturation 15.7, Ferritin 54, Total Bilirubin 0.70, AST 8 L, ALT 15 L, Alkaline Phosphatase 99, Total Protein 5.9 L, Albumin 2.3 L, Globulin 3.6, Albumin/Globulin Ratio 0.6 L Current Medications Acetaminophen (Acetaminophen 325 Mg Tablet) 650 mg PO Q6H PRN PRN PRN Reason: Pain Score 1-10/Temp > 100.7 F Last Admin: 03/19/20 23:11 Dose: 650 mg Documented by: Albuterol Sulfate (Albuterol 2.5 Mg/3 Ml Vial.Neb.) 2.5 mg INHALATION Q4H PRN PRN PRN Reason: Shortness of breath, wheezing Albuterol/Ipratropium (Ipratropium/Albuterol Sulfate 3 Ml Ampul.Neb) 3 ml INHALATION Q6H.RT [facility] Last Admin: 03/20/20 07:05 Dose: 3 ml Documented by: Amiodarone HCl (Amiodarone 200 Mg Tablet) 400 mg PO DAILY [facility] Last Admin: 03/20/20 09:01 Dose: 400 mg Documented by: Bupropion HCl (Bupropion 100 Mg Tablet) 100 mg PO DAILY [facility] Last Admin: 03/20/20 09:06 Dose: 100 mg Documented by: Carvedilol (Carvedilol 3.125 Mg Tablet) 3.125 mg PO BIDCM [facility] Last Admin: 03/20/20 11:29 Dose: 3.125 mg Documented by: Diazepam (Diazepam 5 Mg Tablet) 5 mg PO 4X/DAY PRN PRN PRN Reason: SPASMS Last Admin: 03/20/20 01:47 Dose: 5 mg Documented by: Docusate Sodium (Docusate Sodium 100 Mg Capsule) 100 mg PO BID [facility] Last Admin: 03/20/20 09:02 Dose: Not Given Documented by: Heparin Sodium (Porcine) (Heparin Injection (Vial) 5,000 Unit/Ml Vial) 5,000 unit SC Q12 [facility] Last Admin: 03/20/20 09:02 Dose: 5,000 unit Documented by: Piperacillin Sod/Tazobactam (Sod 3.375 gm/ Sodium Chloride) 50 mls @ 12.5 mls/hr IV Q8 [facility] Last Infusion: 03/20/20 10:12 Dose: Infused Documented by: Vancomycin HCl 750 mg/ Sodium (Chloride) 265 mls @ 250 mls/hr IV RX TO DOSE PRN; Protocol PRN Reason: RX TO DOSE Sodium Chloride () 250 mls @ 15 mls/hr IV .[id number] PRN PRN Reason: Saline Flush Last Infusion: 03/20/20 06:40 Dose: 0 mls/hr Documented by: Sodium Chloride () 250 mls @ 15 mls/hr IV .[id number] PRN PRN Reason: Additional IVPB Infusion Vancomycin HCl 1,250 mg/ (Sodium Chloride) 275 mls @ 167 mls/hr IV Q12H [facility] Last Admin: 03/20/20 11:26 Dose: 167 mls/hr Documented by: Levothyroxine Sodium (Levothyroxine 25 Mcg Tablet) 25 mcg PO DAILY@0600 [facility] Last Admin: 03/20/20 05:51 Dose: 25 mcg Documented by: Morphine Sulfate (Morphine 2 Mg/Ml Syringe) 2 mg IV Q3H PRN PRN PRN Reason: Pain Score 6-10 Last Admin: 03/18/20 19:17 Dose: 2 mg Documented by: Nutritional Formula ([facility] (Danish) [facility] Admin: 03/20/20 09:02 Dose: 1 packet Documented by: Nystatin (Nystatin Powder 15gm Bottle) 1 applic TOPICAL TID [facility]; Protocol Last Admin: 03/20/20 05:50 Dose: 1 applicatio Documented by: Ondansetron HCl (Ondansetron 4 Mg/2 Ml Vial) 4 mg IV Q8H PRN PRN PRN Reason: NAUSEA/VOMITING Oxycodone HCl (Oxycodone 5 Mg Tablet) 10 mg PO Q4H PRN PRN PRN Reason: Pain Score 6-10 Last Admin: 03/20/20 09:01 Dose: 10 mg Documented by: Pantoprazole Sodium (Pantoprazole Sodium 40 Mg Tablet) 40 mg PO BID [facility] Last Admin: 03/20/20 09:01 Dose: 40 mg Documented by: Sertraline HCl (Sertraline 50 Mg Tablet) 50 mg PO BID [facility] Last Admin: 03/20/20 09:01 Dose: 50 mg Documented by: Sodium Chloride (0.9% Saline Lock 10 Ml Syringe) 10 - 40 ml IV UD PRN PRN Reason: SALINE FLUSH Last Admin: 03/18/20 19:18 Dose: 10 ml Documented by: STROKE Vital Signs/Narrative: Vital Signs Pulse BP 03/20/20 11:21 150 H 03/20/20 11:07 150 H 93/69 Medical Necessity - Tobacco Use Smoking Status: Never smoker Assessment/Plan All Active Problems (Last Updated 03/16/20 @ 00:[address] Nahun Ojeda MD) Septic shock (Acute) Abdominal wall cellulitis (Acute) 1. Septic shock secondary to abdominal wall cellulitis and necrotizing fasciitis: Has resolved. Patient off vasopressor and transferred from ICU to [facility] floor. Patient is still has low blood pressure, systolic blood pressure in 90s versus probably his baseline. With large drain output and concentrated urine, 1 L of normal saline bolus over 2 hours ordered. 03/20: Patient has sinus tachycardia with mild hypotension blood pressure systolic 96. I think hypotension related to tachycardia. Coreg and 1 dose of metoprolol 25 mg given. Monitor heart rate and blood pressure. 2. abdominal wall cellulitis and necrotizing fasciitis: Patient had abdominal panniculectomy on 03/17. Necrotizing fasciitis noted. On Vanco and Zosyn. Operative tissue culture from 03/17 shows no growth. Blood culture negative for more than 48 hours. Patient had wound VAC. 03/20 patient has 2000 ML wound drainage 3. LARRY: Improving. 4. Chronic condition: Multiple comorbidities complicates the present care and expect difficult and delay recovery COPD: No exacerbation morbid obesity pAfib: On amiodarone, carvedilol hypothyroid anemia: Normocytic normochromic. Hemoglobin dropped from 10.2 on 03/16-8.2 on 03/19. No obvious active bleeding. Monitor CBC. 5. VTE prophylaxis: SQ heparin Microbiology Past 72 Hours 03/17/20 Unknown Tissue - Abdominal Gram Stain - Final 03/17/20 Unknown Tissue - Abdominal Wound Culture - Final No growth aerobically. 03/17/20 Unknown Tissue - Abdominal Anaerobic Culture - Preliminary No growth in 48 hours. 03/17/20 09:45 Swab (Method) Nasal Screen MRSA/MSSA - Final 03/15/20 20:10 Blood Culture (Wb) - Right Hand Blood Culture - Preliminary No growth in 48 hours. 03/15/20 20:00 Blood Culture (Wb) - Right Forearm Blood Culture - Preliminary No growth in 48 hours. 03/17/20 08:30 Mucosa - Nose SARS-CoV-2 Antigen (Rapid) - Final Laboratory Results 03/17/20 10:00: Crossmatch See Detail 03/20/20 05:20: WBC 7.3, RBC 2.99 L, Hgb 8.8 L, Hct 29.4 L, MCV 98.3 H, MCH 29.4, MCHC 29.9 L, RDW Std Deviation 57.1 H, RDW Coeff of [place] 16.0 H, Plt Count 124 L, MPV 11.2, Immature Gran % (Auto) 0.500, Neut % (Auto) 75.2 H, Lymph % (Auto) 9.8 L, [place] % (Auto) 10.4 H, Eos % (Auto) 3.8, Baso % (Auto) 0.3, Absolute Neuts (auto) 5.5, Absolute Lymphs (auto) 0.72 L, Nucleated RBC % 0, Retic Count 1.45, Immature Retic Fraction 22.00 H, Retic Hgb Equivalent 23.6 L 03/20/20 05:20: Sodium 142, Potassium 4.8, Chloride 114 H, Carbon Dioxide 23.0, Anion Gap 5, BUN 34 H, Creatinine 1.13, Estim Creat Clear Calc 62.73, Est GFR (MDRD) Af Amer 85, Est GFR (MDRD) Non-Af 70, BUN/Creatinine Ratio 30.1 H, Glucose 83, Calcium 8.4 L, Iron 49 L, TIBC 313, Iron Saturation 15.7, Ferritin 54, Total Bilirubin 0.70, AST 8 L, ALT 15 L, Alkaline Phosphatase 99, Total Protein 5.9 L, Albumin 2.3 L, Globulin 3.6, Albumin/Globulin Ratio 0.6 L Inpatient E&M: 32015 Subs Hosp L2
[2020-03-20] MEDS: Lactated Ringers 1,000 ML 500 ML IV (15:28)
[2020-03-20] MEDS: 0.9 % NaCl (Sterile) Posiflush 10 mL IV (16:05)
[2020-03-20] MEDS: Acetaminophen 325 MG Tablet 650 MG PO (17:27)
[2020-03-20] MEDS: Docusate Sodium 100 MG Capsule PO (22:32)
[2020-03-21] VITALS (9 sets, daily range): BP systolic 107–137; BP diastolic 35–89; PULSE 57–80; RESP 18–24; TEMP 36.5–36.8; O2SAT 95–99
[2020-03-21 00:04] LABS: Vancomycin, Trough Level 25.7 ug/mL (5.0-15.0)
--- NOTE | 2020-03-21 01:07 | PCM.RX.CS ---
Consult Pharmacy has been consulted to manage selected antiobiotic: Vancomycin Type of Consult: Follow-up Suspected Infection: Sepsis, Skin/Soft tissue Prior Doses of Antibiotics Received/Current Regimen: Medications Vancomycin HCl 750 mg/ Sodium (Chloride) 265 mls @ 250 mls/hr IV Q12H [facility] Discontinued Medications Vancomycin HCl 1,250 mg/ (Sodium Chloride) 275 mls @ 167 mls/hr IV Q12H [facility] Last Admin: 03/20/20 23:15 Dose: 167 mls/hr Labs: Sodium 142 mmol/L (136-145) 03/20/20 05:20 Potassium 4.8 mmol/L (3.5-5.1) 03/20/20 05:20 Chloride 114 mmol/L (98-107) H 03/20/20 05:20 Carbon Dioxide 23.0 mmol/L (21.0-32.0) 03/20/20 05:20 Anion Gap 5 (5-15) 03/20/20 05:20 BUN 34 mg/dL (7-18) H 03/20/20 05:20 Creatinine 1.13 mg/dL (0.70-1.30) 03/20/20 05:20 Est GFR (MDRD) Af Amer 85 mL/min (>60) 03/20/20 05:20 Est GFR (MDRD) Non-Af 70 mL/min (>60) 03/20/20 05:20 BUN/Creatinine Ratio 30.1 RATIO (10-20) H 03/20/20 05:20 Glucose 83 mg/dL (74-106) 03/20/20 05:20 Vancomycin Trough 25.7 ug/mL (5.0-15.0) H 03/20/20 23:05 Microbiology: Microbiology 03/17/20 Unknown Tissue - Abdominal Gram Stain - Final 03/17/20 Unknown Tissue - Abdominal Wound Culture - Final No growth aerobically. 03/17/20 Unknown Tissue - Abdominal Anaerobic Culture - Preliminary No growth in 48 hours. 03/17/20 09:45 Swab (Method) Nasal Screen MRSA/MSSA - Final 03/15/20 20:10 Blood Culture (Wb) - Right Hand Blood Culture - Preliminary No growth in 48 hours. 03/15/20 20:00 Blood Culture (Wb) - Right Forearm Blood Culture - Preliminary No growth in 48 hours. 03/17/20 08:30 Mucosa - Nose SARS-CoV-2 Antigen (Rapid) - Final Weight used for dosin.6 kg Estimated Creatinine Clearance: 117.5 Goal Trough: 15-20 mcg/mL Pharmacy Plan for Drug Dosing: Vancomycin trough was still high at 25.7. Using this level, dosing calculator determined dose change to 750mg q12h. Will re-draw trough prior to 4th dose of this new regimen. Pharmacy Service will continue to monitor and adjust dosing as required. Follow-Up Labs: Trough Vancomycin Labs to be done on [date and time ordered]: 03/22/20 @[id number]
[2020-03-21] MEDS: Levothyroxine 25 MCG TABLET PO (05:07)
[2020-03-21] MEDS: Nystatin Powder 15gm Bottle 1 APPLIC TOPICAL ×3 (05:08→20:48)
[2020-03-21] MEDS: oxyCODONE 5 MG Tablet 10 MG PO ×4 (05:08→22:01)
[2020-03-21 05:12] LABS: Absolute Lymphocyte Count 0.86 X10^3/uL (0.83-4.51); Absolute Neutrophil Count 4.6 X10^3/uL (2.0-7.7); Basophil# 0.03 X10^3/uL; Basophil% 0.5 % (0-1); Eosinophils% 4.7 % (0-5); Hematocrit 29.1 % (40-54); Hemoglobin 8.7 g/dL (13.0-16.5); Lymphocyte # 0.86 X10^3/ul (4.0); Lymphocyte % 13.4 % (19-41); Mean Corp Hgb Conc 29.9 g/dL (32-36); Mean Corpuscular Hgb 29.2 pg (27.0-32.0); Mean Corpuscular Volume 97.7 fL (80-94); Mean Platelet Vol. 10.6 fl (6.2-12.0); Monocyte# 0.61 X10^3/uL; Monocyte% 9.5 % (0-10); NRBC Flagged by Analyzer 0 % (0-5); Neutrophil # 4.57 X10^3/uL (2.7-7.7); Platelet Count 147 K/mm3 (150-450); RBC Distribution Width CV 16.2 % (11.6-14.6); RBC Distribution Width SD 58.2 fl (35.1-43.9); Red Blood Count 2.98 M/mm3 (4.6-6.2); White Blood Count 6.4 K/mm3 (4.4-11.0)
[2020-03-21 06:24] LABS: ALB/GLOB Ratio 0.6 RATIO (0.9-2.4); AST(SGOT) 12 U/L (15-37); Alanine Aminotransfer ALT/SGPT 15 U/L (16-61); Albumin, Serum 2.4 g/dL (3.2-5.0); Alkaline Phosphatase 109 U/L (45-117); Anion Gap 5 (5-15); BUN 36 mg/dL (7-18); BUN/Creat Ratio 33.3 RATIO (10-20); Calcium,Total 8.2 mg/dL (8.5-10.1); Chloride 113 mmol/L (98-107); Creatinine, Serum 1.08 mg/dL (0.70-1.30); EST Glomerular Filtration Rate 74 mL/min (>60); Est Glom Filt Rate - Afr Amer 90 mL/min (>60); Estimated Creatinine Clearance 65.64 ml/min; Globulin 3.7 g/dL (2.2-4.2); Glucose 79 mg/dL (74-106); Potassium 4.5 mmol/L (3.5-5.1); Protein, Total 6.1 g/dL (6.4-8.2); Sodium Level 139 mmol/L (136-145)
--- NOTE | 2020-03-21 07:27 | PCM.PN.HOSP ---
Patient Problems: Active and Suspected Problems (Last Updated 03/16/20 @ 00:[address] Nahun Ojeda MD) Septic shock (Acute) Abdominal wall cellulitis (Acute) Reason for Visit: Follow-up for abdominal wall cellulitis after panniculectomy and surgery. Hypertension. Objective: Patient blood pressure yesterday evening dropped in systolic 86 millimeters of Hg. Was given 1 L of IV fluid LR bolus. Blood pressure responded to the fluid. Patient has large open wound after panniculectomy. Had total drainage about 2 L on 03/19 and 500 mL since morning probably more. The drain is removed. Last blood pressure 137/89. No fever. No dizziness or lightheadedness. Urine output 1330 mL. Physical exam General: Alert, Oriented x3, Cooperative. BMI 72.1 kg/m? HEENT: Atraumatic, PERRLA, EOMI, Normocephalic Oral: No Gingival or Mucosal Lesions/ Ulcerations Neck: Supple, No JVD, Negative Carotid Bruits Lungs: Air entry diminished in bilateral lung bases. No crepitation/rhonchi Cardiovascular: Regular rate, Regular Rhythm, Normal S1, Normal S2, No murmurs Abdomen: Bowel Sounds Present, Soft, Non Tender, Non-Distended : Simon catheter. Right yellow urine. No renal angle tenderness. No suprapubic tenderness. Extremities: No edema, Capillary Refill Less than 3 Seconds Skin: large left lower quadrant wound. No purulent discharge. Granulation tissue with adipose tissue present. No active bleeding. Musculoskeletal: Patient ambulates with the aid, walker. he walks 20 feet on baseline. Bilateral lower extremity arthritis. Left shoulder rotator cuff injury Neurological: Cranial nerves II-XII grossly intact, Deep Tendon Reflexes 2+/4 and Symmetrical, Neuro grossly intact Psych/Mental Status: Normal Affect, Appropriate. Vitals/I&O's: Vital Signs Temp Pulse Resp BP Pulse Ox 97.8 F 57 L 18 107/35 L 99 03/21/20 04:58 03/21/20 04:58 03/21/20 04:58 03/21/20 04:58 03/21/20 04:58 Oxygen Flow Rate (L/min) 2 Oxygen Delivery Method Bi-pap Weight: 448 lb 13.778 oz Body Mass Index (BMI) 72.1 Intake and Output for Last 24 Hours 03/19/20 03/20/20 03/21/20 23:59 23:59 23:59 Intake Total 4155 / 4155 2966.25 / 2966.25 1125 / 1125 Output Total 3725 / 3725 1330 / 1330 775 / 775 Balance 430 / 430 1636.25 / 1636.25 350 / 350 Microbiology Past 72 Hours 03/15/20 20:10 Blood Culture (Wb) - Right Hand Blood Culture - Final No growth in 5 days. 03/15/20 20:00 Blood Culture (Wb) - Right Forearm Blood Culture - Final No growth in 5 days. 03/17/20 Unknown Tissue - Abdominal Gram Stain - Final 03/17/20 Unknown Tissue - Abdominal Wound Culture - Final No growth aerobically. 03/17/20 Unknown Tissue - Abdominal Anaerobic Culture - Preliminary No growth in 48 hours. 03/17/20 09:45 Swab (Method) Nasal Screen MRSA/MSSA - Final Laboratory Results 03/17/20 10:00: Crossmatch See Detail 03/20/20 23:05: Vancomycin Trough 25.7 H 03/21/20 04:50: WBC 6.4, RBC 2.98 L, Hgb 8.7 L, Hct 29.1 L, MCV 97.7 H, MCH 29.2, MCHC 29.9 L, RDW Std Deviation 58.2 H, RDW Coeff of Florina 16.2 H, Plt Count 147 L, MPV 10.6, Immature Gran % (Auto) 0.900, Neut % (Auto) 71.0 H, Lymph % (Auto) 13.4 L, Bacon % (Auto) 9.5, Eos % (Auto) 4.7, Baso % (Auto) 0.5, Absolute Neuts (auto) 4.6, Absolute Lymphs (auto) 0.86, Nucleated RBC % 0 03/21/20 04:50: Sodium 139, Potassium 4.5, Chloride 113 H, Carbon Dioxide 21.0, Anion Gap 5, BUN 36 H, Creatinine 1.08, Estim Creat Clear Calc 65.64, Est GFR (MDRD) Af Amer 90, Est GFR (MDRD) Non-Af 74, BUN/Creatinine Ratio 33.3 H, Glucose 79, Calcium 8.2 L, Total Bilirubin 0.70, AST 12 L, ALT 15 L, Alkaline Phosphatase 109, Total Protein 6.1 L, Albumin 2.4 L, Globulin 3.7, Albumin/Globulin Ratio 0.6 L Current Medications Acetaminophen (Acetaminophen 325 Mg Tablet) 650 mg PO Q6H PRN PRN PRN Reason: Pain Score 1-10/Temp > 100.7 F Last Admin: 03/20/20 17:27 Dose: 650 mg Documented by: Albuterol Sulfate (Albuterol 2.5 Mg/3 Ml Vial.Neb.) 2.5 mg INHALATION Q4H PRN PRN PRN Reason: Shortness of breath, wheezing Albuterol/Ipratropium (Ipratropium/Albuterol Sulfate 3 Ml Ampul.Neb) 3 ml INHALATION Q6H.RT [facility] Last Admin: 03/20/20 19:54 Dose: 3 ml Documented by: Amiodarone HCl (Amiodarone 200 Mg Tablet) 400 mg PO DAILY [facility] Last Admin: 03/20/20 09:01 Dose: 400 mg Documented by: Bupropion HCl (Bupropion 100 Mg Tablet) 100 mg PO DAILY [facility] Last Admin: 03/20/20 09:06 Dose: 100 mg Documented by: Carvedilol (Carvedilol 3.125 Mg Tablet) 3.125 mg PO BIDCM [facility] Last Admin: 03/20/20 17:21 Dose: Not Given Documented by: Diazepam (Diazepam 5 Mg Tablet) 5 mg PO 4X/DAY PRN PRN PRN Reason: SPASMS Last Admin: 03/20/20 01:47 Dose: 5 mg Documented by: Docusate Sodium (Docusate Sodium 100 Mg Capsule) 100 mg PO BID [facility] Last Admin: 03/20/20 22:32 Dose: 100 mg Documented by: Heparin Sodium (Beef Lung) (Heparin Pf Lock 10 Units/Ml 50 Units/5 Ml Syringe) 50 units IV UD PRN PRN Reason: PICC Line Heparin Flush Heparin Sodium (Porcine) (Heparin Injection (Vial) 5,000 Unit/Ml Vial) 5,000 unit SC Q12 [facility] Last Admin: 03/20/20 22:31 Dose: 5,000 unit Documented by: Piperacillin Sod/Tazobactam (Sod 3.375 gm/ Sodium Chloride) 50 mls @ 12.5 mls/hr IV Q8 [facility] Last Admin: 03/21/20 05:07 Dose: 12.5 mls/hr Documented by: Vancomycin HCl 750 mg/ Sodium (Chloride) 265 mls @ 250 mls/hr IV RX TO DOSE PRN; Protocol PRN Reason: RX TO DOSE Sodium Chloride () 250 mls @ 15 mls/hr IV .[id number] PRN PRN Reason: Saline Flush Last Infusion: 03/20/20 18:01 Dose: Infused Documented by: Sodium Chloride () 250 mls @ 15 mls/hr IV .[id number] PRN PRN Reason: Additional IVPB Infusion Last Admin: 03/20/20 18:02 Dose: 15 mls/hr Documented by: Vancomycin HCl 750 mg/ Sodium (Chloride) 265 mls @ 250 mls/hr IV Q12H [facility] Levothyroxine Sodium (Levothyroxine 25 Mcg Tablet) 25 mcg PO DAILY@0600 [facility] Last Admin: 03/21/20 05:07 Dose: 25 mcg Documented by: Morphine Sulfate (Morphine 2 Mg/Ml Syringe) 2 mg IV Q3H PRN PRN PRN Reason: Pain Score 6-10 Last Admin: 03/18/20 19:17 Dose: 2 mg Documented by: Nutritional Formula ([facility] (Danish) [facility]) [facility] Last Admin: 03/20/20 17:25 Dose: 1 packet Documented by: Nystatin (Nystatin Powder 15gm Bottle) 1 applic TOPICAL TID [facility]; Protocol Last Admin: 03/21/20 05:08 Dose: 1 applicatio Documented by: Ondansetron HCl (Ondansetron 4 Mg/2 Ml Vial) 4 mg IV Q8H PRN PRN PRN Reason: NAUSEA/VOMITING Oxycodone HCl (Oxycodone 5 Mg Tablet) 10 mg PO Q4H PRN PRN PRN Reason: Pain Score 6-10 Last Admin: 03/21/20 05:08 Dose: 10 mg Documented by: Pantoprazole Sodium (Pantoprazole Sodium 40 Mg Tablet) 40 mg PO BID [facility] Last Admin: 03/20/20 22:33 Dose: 40 mg Documented by: Sertraline HCl (Sertraline 50 Mg Tablet) 50 mg PO BID [facility] Last Admin: 03/20/20 22:33 Dose: 50 mg Documented by: Sodium Chloride (0.9% Saline Lock 10 Ml Syringe) 10 - 40 ml IV UD PRN PRN Reason: SALINE FLUSH Last Admin: 03/18/20 19:18 Dose: 10 ml Documented by: Sodium Chloride (0.9% Saline Lock 10 Ml Syringe) 10 - 40 ml IV UD PRN PRN Reason: Open End PICC Flush Sodium Chloride (0.9 % Nacl (Sterile) Posiflush 10 Ml) 10 - 40 ml IV UD PRN PRN Reason: Port access or dressing change Last Admin: 03/20/20 16:05 Dose: 30 ml Documented by: STROKE Vital Signs/Narrative: Vital Signs Temp Pulse Resp BP Pulse Ox 03/21/20 04:58 97.8 F 57 L 18 107/35 L 99 Medical Necessity - Tobacco Use Smoking Status: Never smoker Assessment/Plan All Active Problems (Last Updated 03/16/20 @ 00:[address] Nahun Ojeda MD) Septic shock (Acute) Abdominal wall cellulitis (Acute) 1. Septic shock secondary to abdominal wall cellulitis and necrotizing fasciitis: Has resolved. Patient off vasopressor and transferred from ICU to [facility] floor. Patient is still has low blood pressure, systolic blood pressure in 90s versus probably his baseline. With large drain output and concentrated urine, 1 L of normal saline bolus over 2 hours ordered. 03/20: Patient has sinus tachycardia with mild hypotension blood pressure systolic 96. I think hypotension related to tachycardia. Coreg and 1 dose of metoprolol 25 mg given. Monitor heart rate and blood pressure. 2. abdominal wall cellulitis and necrotizing fasciitis: Patient had abdominal panniculectomy on 03/17. Necrotizing fasciitis noted. On Vanco and Zosyn. Operative tissue culture from 03/17 shows no growth. Blood culture negative for more than 48 hours. Patient had wound VAC. 03/20 patient has 2000 ML wound drainage 03/21: Surgical tissue culture shows no growth in 48 hours. Blood culture negative for 5 days. MRSA nasal screen is negative. Vancomycin discontinued. Patient on Zosyn since 03/15, may be stop after total 7 days of antibiotic as cultures are negative but patient was in septic shock. ID follow-up tomorrow a.m. 3. LARRY: Improving. 4. Chronic condition: Multiple comorbidities complicates the present care and expect difficult and delay recovery COPD: No exacerbation morbid obesity pAfib: On amiodarone, carvedilol hypothyroid anemia: Normocytic normochromic. Hemoglobin dropped from 10.2 on 03/16-8.2 on 03/19. No obvious active bleeding. Monitor CBC. 5. VTE prophylaxis: SQ heparin Microbiology Past 72 Hours 03/15/20 20:10 Blood Culture (Wb) - Right Hand Blood Culture - Final No growth in 5 days. 03/15/20 20:00 Blood Culture (Wb) - Right Forearm Blood Culture - Final No growth in 5 days. 03/17/20 Unknown Tissue - Abdominal Gram Stain - Final 03/17/20 Unknown Tissue - Abdominal Wound Culture - Final No growth aerobically. 03/17/20 Unknown Tissue - Abdominal Anaerobic Culture - Preliminary No growth in 48 hours. 03/17/20 09:45 Swab (Method) Nasal Screen MRSA/MSSA - Final Laboratory Results 03/20/20 23:05: Vancomycin Trough 25.7 H 03/21/20 04:50: WBC 6.4, RBC 2.98 L, Hgb 8.7 L, Hct 29.1 L, MCV 97.7 H, MCH 29.2, MCHC 29.9 L, RDW Std Deviation 58.2 H, RDW Coeff of Florina 16.2 H, Plt Count 147 L, MPV 10.6, Immature Gran % (Auto) 0.900, Neut % (Auto) 71.0 H, Lymph % (Auto) 13.4 L, Bacon % (Auto) 9.5, Eos % (Auto) 4.7, Baso % (Auto) 0.5, Absolute Neuts (auto) 4.6, Absolute Lymphs (auto) 0.86, Nucleated RBC % 0 03/21/20 04:50: Sodium 139, Potassium 4.5, Chloride 113 H, Carbon Dioxide 21.0, Anion Gap 5, BUN 36 H, Creatinine 1.08, Estim Creat Clear Calc 65.64, Est GFR (MDRD) Af Amer 90, Est GFR (MDRD) Non-Af 74, BUN/Creatinine Ratio 33.3 H, Glucose 79, Calcium 8.2 L, Total Bilirubin 0.70, AST 12 L, ALT 15 L, Alkaline Phosphatase 109, Total Protein 6.1 L, Albumin 2.4 L, Globulin 3.7, Albumin/Globulin Ratio 0.6 L Inpatient E&M: 37485 Subs Hosp L2
[2020-03-21] MEDS: Carvedilol 3.125 MG TABLET PO ×2 (08:28→17:51)
[2020-03-21] MEDS: Docusate Sodium 100 MG Capsule PO ×2 (08:29→21:57)
[2020-03-21] MEDS: Sertraline 50 MG Tablet PO ×2 (08:29→21:57)
[2020-03-21] MEDS: Heparin Injection (Vial) 5,000 UNIT/ML VIAL 5000 UNIT SC ×2 (08:29→22:02)
[2020-03-21] MEDS: Pantoprazole Sodium 40 MG Tablet PO ×2 (08:29→21:57)
[2020-03-21] MEDS: buPROPion 100 MG Tablet PO (08:31)
[2020-03-21] MEDS: Ipratropium/Albuterol Sulfate 3 ML AMPUL.NEB INHALATION ×2 (13:20→19:17)
[2020-03-21] MEDS: Amiodarone 200 MG Tablet PO (15:33)
[2020-03-21] MEDS: Menthol/Lanolin/Calamine/Znox 113 GM Tube 1 APPLIC TOPICAL (20:50)
[2020-03-22 02:33] VITALS: BP 101/56; PULSE 66; RESP 18; TEMP 36.9; O2SAT 98
[2020-03-22] MEDS: Nystatin Powder 15gm Bottle 1 APPLIC TOPICAL ×3 (05:43→21:21)
[2020-03-22] MEDS: Levothyroxine 25 MCG TABLET PO (05:47)
[2020-03-22 05:52] LABS: Prealbumin 9.8 mg/dL (20.0-40.0)
[2020-03-22 07:02] VITALS: O2SAT 95
[2020-03-22 08:06] VITALS: BP 130/88; PULSE 61; RESP 20; TEMP 37.1; O2SAT 95
[2020-03-22] MEDS: Pantoprazole Sodium 40 MG Tablet PO ×2 (08:10→21:20)
[2020-03-22] MEDS: Docusate Sodium 100 MG Capsule PO ×2 (08:10→21:19)
[2020-03-22] MEDS: buPROPion 100 MG Tablet PO (08:10)
[2020-03-22] MEDS: Amiodarone 200 MG Tablet PO (08:10)
[2020-03-22] MEDS: Carvedilol 3.125 MG TABLET PO ×2 (08:10→16:35)
[2020-03-22] MEDS: Menthol/Lanolin/Calamine/Znox 113 GM Tube 1 APPLIC TOPICAL ×2 (08:10→21:18)
[2020-03-22] MEDS: Sertraline 50 MG Tablet PO ×2 (08:10→21:20)
[2020-03-22] MEDS: Heparin Injection (Vial) 5,000 UNIT/ML VIAL 5000 UNIT SC ×2 (08:11→21:20)
[2020-03-22] MEDS: oxyCODONE 5 MG Tablet 10 MG PO ×2 (08:13→14:19)
--- NOTE | 2020-03-22 09:12 | CASEMGMT ---
BEATRICE called [facility], message left. SW faxed updates, will follow up w/[facility] once pt's medications and wound care has been clarified, as well as when pt is ready for discharge. DARION Garrett
--- NOTE | 2020-03-22 09:16 | NURSING ---
wound photo: left lower abdomen
--- NOTE | 2020-03-22 10:21 | CASEMGMT ---
Addendum entered by Selin Stover 03/22/20 11:52: [facility] is not taking any pts at present. Plan will continue to be for pt to go to [facility]. DARION Garrett Original Note: Pt informed the SCHEDULING REPRESENTATIVE he would rather go to [facility], not [facility]. SW spoke w/pt, confirmed this. [facility] is pt's second choice. SW explained will call and find out bed availability and let him know. SW called [facility], message left inquiring about bed availability prior to sending referral. SW will continue to follow. DARION Garrett
--- NOTE | 2020-03-22 11:57 | PCM.PN.HOSP ---
Patient Problems: Active and Suspected Problems (Last Updated 03/16/20 @ 00:[address] Nahun Ojeda MD) Septic shock (Acute) Abdominal wall cellulitis (Acute) Reason for Visit: Follow-up for sepsis secondary to abdominal wall cellulitis. Objective: Patient did not had drop in blood pressure last evening or night. Patient continues to have significant amount of secretion/drainage from the wound bed after panniculectomy. It is serous nonpurulent. Physical exam General: Alert, Oriented x3, Cooperative. BMI 72.1 kg/m? HEENT: Atraumatic, PERRLA, EOMI, Normocephalic Oral: No Gingival or Mucosal Lesions/ Ulcerations Neck: Supple, No JVD, Negative Carotid Bruits Lungs: Air entry diminished in bilateral lung bases. No crepitation/rhonchi Cardiovascular: Regular rate, Regular Rhythm, Normal S1, Normal S2, No murmurs Abdomen: Bowel Sounds Present, Soft, Non Tender, Non-Distended : Simon catheter, clear urine No renal angle tenderness. No suprapubic tenderness. Extremities: Moderate bilateral lower extremity lymphedema, Capillary Refill Less than 3 Seconds Skin: Wound bed has healthy granulation tissue. Currently does not have wound VAC. Significant drainage as per the nursing staff. Musculoskeletal: Patient ambulates with the aid, walker. he walks 20 feet on baseline. Bilateral lower extremity arthritis. Left shoulder rotator cuff injury Neurological: Cranial nerves II-XII grossly intact, Deep Tendon Reflexes 2+/4 and Symmetrical, Neuro grossly intact Psych/Mental Status: Normal Affect, Appropriate. Vitals/I&O's: Vital Signs Temp Pulse Resp BP Pulse Ox 98.7 F 61 20 H 130/88 H 95 03/22/20 08:06 03/22/20 08:06 03/22/20 08:06 03/22/20 08:06 03/22/20 08:06 Oxygen Flow Rate (L/min) 2 Oxygen Delivery Method Room Air Weight: 431 lb 7.114 oz Body Mass Index (BMI) 72.1 Intake and Output for Last 24 Hours 03/20/20 03/21/20 03/22/20 23:59 23:59 23:59 Intake Total 2966.25 / 2966.25 2040 / 2040 1010 / 1010 Output Total 1330 / 1330 1500 / 1500 925 / 925 Balance 1636.25 / 1636.25 540 / 540 85 / 85 Microbiology Past 72 Hours 03/17/20 Unknown Tissue - Abdominal Gram Stain - Final 03/17/20 Unknown Tissue - Abdominal Wound Culture - Final No growth aerobically. 03/17/20 Unknown Tissue - Abdominal Anaerobic Culture - Final No growth in 5 days. 03/15/20 20:10 Blood Culture (Wb) - Right Hand Blood Culture - Final No growth in 5 days. 03/15/20 20:00 Blood Culture (Wb) - Right Forearm Blood Culture - Final No growth in 5 days. Laboratory Results 03/22/20 04:43: Prealbumin 9.8 L Current Medications Acetaminophen (Acetaminophen 325 Mg Tablet) 650 mg PO Q6H PRN PRN PRN Reason: Pain Score 1-10/Temp > 100.7 F Last Admin: 03/20/20 17:27 Dose: 650 mg Documented by: Albuterol Sulfate (Albuterol 2.5 Mg/3 Ml Vial.Neb.) 2.5 mg INHALATION Q4H PRN PRN PRN Reason: Shortness of breath, wheezing Albuterol/Ipratropium (Ipratropium/Albuterol Sulfate 3 Ml Ampul.Neb) 3 ml INHALATION Q6H.RT [facility] Last Admin: 03/21/20 19:17 Dose: 3 ml Documented by: Amiodarone HCl (Amiodarone 200 Mg Tablet) 200 mg PO DAILY [facility] Last Admin: 03/22/20 08:10 Dose: 200 mg Documented by: Bupropion HCl (Bupropion 100 Mg Tablet) 100 mg PO DAILY [facility] Last Admin: 03/22/20 08:10 Dose: 100 mg Documented by: Calamine/Phenol (Menthol/Lanolin/Calamine/Znox 113 Gm Tube) 1 applic TOPICAL BID [facility]; Protocol Last Admin: 03/22/20 08:10 Dose: 1 applicatio Documented by: Carvedilol ([facility]ilol 3.125 Mg Tablet) [facility] Last Admin: 03/22/20 08:10 Dose: 3.125 mg Documented by: Diazepam (Diazepam 5 Mg Tablet) 5 mg PO 4X/DAY PRN PRN PRN Reason: SPASMS Last Admin: 03/20/20 01:47 Dose: 5 mg Documented by: Docusate Sodium (Docusate Sodium 100 Mg Capsule) 100 mg PO BID [facility] Last Admin: 03/22/20 08:10 Dose: 100 mg Documented by: Heparin Sodium (Beef Lung) (Heparin Pf Lock 10 Units/Ml 50 Units/5 Ml Syringe) 50 units IV UD PRN PRN Reason: PICC Line Heparin Flush Heparin Sodium (Porcine) (Heparin Injection (Vial) 5,000 Unit/Ml Vial) 5,000 unit SC Q12 [facility] Last Admin: 03/22/20 08:11 Dose: 5,000 unit Documented by: Sodium Chloride () 250 mls @ 15 mls/hr IV .[id number] PRN PRN Reason: Saline Flush Last Infusion: 03/22/20 06:26 Dose: Infused Documented by: Sodium Chloride () 250 mls @ 15 mls/hr IV .[id number] PRN PRN Reason: Additional IVPB Infusion Last Infusion: 03/21/20 10:57 Dose: Infused Documented by: Levothyroxine Sodium (Levothyroxine 25 Mcg Tablet) 25 mcg PO DAILY@0600 [facility] Last Admin: 03/22/20 05:47 Dose: 25 mcg Documented by: Morphine Sulfate (Morphine 2 Mg/Ml Syringe) 2 mg IV Q3H PRN PRN PRN Reason: Pain Score 6-10 Last Admin: 03/18/20 19:17 Dose: 2 mg Documented by: Nutritional Formula (Nutritional Supplement (Danish) Packet) [facility] Last Admin: 03/22/20 08:10 Dose: 1 packet Documented by: Nystatin (Nystatin Powder 15gm Bottle) 1 applic TOPICAL TID [facility]; Protocol Last Admin: 03/22/20 05:43 Dose: 1 applicatio Documented by: Ondansetron HCl (Ondansetron 4 Mg/2 Ml Vial) 4 mg IV Q8H PRN PRN PRN Reason: NAUSEA/VOMITING Oxycodone HCl (Oxycodone 5 Mg Tablet) 10 mg PO Q4H PRN PRN PRN Reason: Pain Score 6-10 Last Admin: 03/22/20 08:13 Dose: 10 mg Documented by: Pantoprazole Sodium (Pantoprazole Sodium 40 Mg Tablet) 40 mg PO BID [facility] Last Admin: 03/22/20 08:10 Dose: 40 mg Documented by: Sertraline HCl (Sertraline 50 Mg Tablet) 50 mg PO BID [facility] Last Admin: 03/22/20 08:10 Dose: 50 mg Documented by: Sodium Chloride (0.9% Saline Lock 10 Ml Syringe) 10 - 40 ml IV UD PRN PRN Reason: SALINE FLUSH Last Admin: 03/18/20 19:18 Dose: 10 ml Documented by: Sodium Chloride (0.9% Saline Lock 10 Ml Syringe) 10 - 40 ml IV UD PRN PRN Reason: Open End PICC Flush Sodium Chloride (0.9 % Nacl (Sterile) Posiflush 10 Ml) 10 - 40 ml IV UD PRN PRN Reason: Port access or dressing change Last Admin: 03/20/20 16:05 Dose: 30 ml Documented by: STROKE Vital Signs/Narrative: Vital Signs Temp Pulse Resp BP Pulse Ox 03/22/20 08:06 98.7 F 61 20 H 130/88 H 95 Medical Necessity - Tobacco Use Smoking Status: Never smoker Assessment/Plan All Active Problems (Last Updated 03/16/20 @ 00:[address] Nahun Ojeda MD) Septic shock (Acute) Abdominal wall cellulitis (Acute) 1. Septic shock secondary to abdominal wall cellulitis and necrotizing fasciitis: Has resolved. [facility] Patient is still has low blood pressure, systolic blood pressure in 90s versus probably his baseline. With large drain output and concentrated urine, 1 L of normal saline bolus over 2 hours ordered. 03/20: Patient has sinus tachycardia with mild hypotension blood pressure systolic 96. I think hypotension related to tachycardia. Coreg and 1 dose of metoprolol 25 mg given. Monitor heart rate and blood pressure. 03/22: Blood patient's blood pressure remained stable in the last 24 hours and did not require fluid bolus. I feel his hypotension was mainly due to increased drainage from the left abdominal panniculectomy wound. 2. abdominal wall cellulitis and necrotizing fasciitis: Patient had abdominal panniculectomy on 03/17. Necrotizing fasciitis noted. On Vanco and Zosyn. Operative tissue culture from 03/17 shows no growth. Blood culture negative for more than 48 hours. Patient had wound VAC. 03/20 patient has 2000 ML wound drainage 03/21: Surgical tissue culture shows no growth in 48 hours. Blood culture negative for 5 days. MRSA nasal screen is negative. Vancomycin discontinued. Patient on Zosyn since 03/15, may be stop after total 7 days of antibiotic as cultures are negative but patient was in septic shock. ID follow-up tomorrow a.m. 03/22: Discussed with ID. Zosyn is discontinued as tissue culture did not show any growth. 3. LARRY: Improving. 4. Chronic condition: Multiple comorbidities complicates the present care and expect difficult and delay recovery COPD: No exacerbation morbid obesity pAfib: On amiodarone, carvedilol hypothyroid anemia: Normocytic normochromic. Hemoglobin dropped from 10.2 on 03/16-8.2 on 03/19. No obvious active bleeding. Monitor CBC. 5. VTE prophylaxis: SQ heparin Microbiology Past 72 Hours 03/17/20 Unknown Tissue - Abdominal Gram Stain - Final 03/17/20 Unknown Tissue - Abdominal Wound Culture - Final No growth aerobically. 03/17/20 Unknown Tissue - Abdominal Anaerobic Culture - Final No growth in 5 days. 03/15/20 20:10 Blood Culture (Wb) - Right Hand Blood Culture - Final No growth in 5 days. 03/15/20 20:00 Blood Culture (Wb) - Right Forearm Blood Culture - Final No growth in 5 days. Laboratory Results 03/22/20 04:43: Prealbumin 9.8 L Inpatient E&M: 20084 Subs Hosp L2
--- NOTE | 2020-03-22 12:00 | CASEMGMT ---
Addendum entered by Selin Stover 03/22/20 14:35: SW spoke w/Anette at [facility], they can take pt whenever he is ready. SW explained does not anticipate today. SW spoke w/pt, let him know [facility] does not have any availability at this time, but that [facility] can take him. Pt states understanding. SW will continue to follow. DARION Garrett Original Note: SW faxed updated information to [facility] in regard to pt's wound care. SOREN GarrettS
[2020-03-22 14:02] VITALS: BP 99/55; PULSE 67; RESP 18; TEMP 37; O2SAT 97
--- NOTE | 2020-03-22 14:09 | PCM.PN.SRG ---
Patient Problems: Active and Suspected Problems (Last Updated 03/16/20 @ 00:[address] Nahun Ojeda MD) Septic shock (Acute) Abdominal wall cellulitis (Acute) Subjective: Post op day #5 Resting in bed. - Physical Exam Vitals/I&O's: Vital Signs Temp Pulse Resp BP Pulse Ox 98.6 F 67 18 99/55 L 97 03/22/20 14:02 03/22/20 14:02 03/22/20 14:02 03/22/20 14:02 03/22/20 14:02 Oxygen Flow Rate (L/min) 2 Oxygen Delivery Method Room Air Weight: 431 lb 7.114 oz Body Mass Index (BMI) 72.1 Intake and Output for Last 24 Hours 03/20/20 03/21/20 03/22/20 23:59 23:59 23:59 Intake Total 2966.25 / 2966.25 2040 / 2040 1010 / 1010 Output Total 1330 / 1330 1500 / 1500 925 / 925 Balance 1636.25 / 1636.25 540 / 540 85 / 85 General: Alert, Oriented x3, Cooperative HEENT: Atraumatic Oral: Moist Mucosa Lungs: Normal air movement Cardiovascular: Regular rate Abdomen: Obese Extremities: Capillary Refill Less than 3 Seconds, Diminished Peripheral Pulses, Edema Skin: Ulcer/ Wound - Left lower abdominal ulcer dressing intact. Draining large amount of serosanguineous drainage. Musculoskeletal: Tenderness Neurological: Cranial nerves II-XII grossly intact Psych/Mental Status: Normal Affect, Appropriate Microbiology Past 72 Hours 03/17/20 Unknown Tissue - Abdominal Gram Stain - Final 03/17/20 Unknown Tissue - Abdominal Wound Culture - Final No growth aerobically. 03/17/20 Unknown Tissue - Abdominal Anaerobic Culture - Final No growth in 5 days. 03/15/20 20:10 Blood Culture (Wb) - Right Hand Blood Culture - Final No growth in 5 days. 03/15/20 20:00 Blood Culture (Wb) - Right Forearm Blood Culture - Final No growth in 5 days. Laboratory Results 03/22/20 04:43: Prealbumin 9.8 L Current Medications Acetaminophen (Acetaminophen 325 Mg Tablet) 650 mg PO Q6H PRN PRN PRN Reason: Pain Score 1-10/Temp > 100.7 F Last Admin: 03/20/20 17:27 Dose: 650 mg Documented by: Albuterol Sulfate (Albuterol 2.5 Mg/3 Ml Vial.Neb.) 2.5 mg INHALATION Q4H PRN PRN PRN Reason: Shortness of breath, wheezing Albuterol/Ipratropium (Ipratropium/Albuterol Sulfate 3 Ml Ampul.Neb) 3 ml INHALATION Q6H.RT [facility] Last Admin: 03/21/20 19:17 Dose: 3 ml Documented by: Amiodarone HCl (Amiodarone 200 Mg Tablet) 200 mg PO DAILY [facility] Last Admin: 03/22/20 08:10 Dose: 200 mg Documented by: Bupropion HCl (Bupropion 100 Mg Tablet) 100 mg PO DAILY [facility] Last Admin: 03/22/20 08:10 Dose: 100 mg Documented by: Calamine/Phenol (Menthol/Lanolin/Calamine/Znox 113 Gm Tube) 1 applic TOPICAL BID [facility]; Protocol Last Admin: 03/22/20 08:10 Dose: 1 applicatio Documented by: Carvedilol (Carvedilol 3.125 Mg Tablet) [facility] Last Admin: 03/22/20 08:10 Dose: 3.125 mg Documented by: Diazepam (Diazepam 5 Mg Tablet) 5 mg PO 4X/DAY PRN PRN PRN Reason: SPASMS Last Admin: 03/20/20 01:47 Dose: 5 mg Documented by: Docusate Sodium (Docusate Sodium 100 Mg Capsule) 100 mg PO BID [facility] Last Admin: 03/22/20 08:10 Dose: 100 mg Documented by: Heparin Sodium (Beef Lung) (Heparin Pf Lock 10 Units/Ml 50 Units/5 Ml Syringe) 50 units IV UD PRN PRN Reason: PICC Line Heparin Flush Heparin Sodium (Porcine) (Heparin Injection (Vial) 5,000 Unit/Ml Vial) 5,000 unit SC Q12 [facility] Last Admin: 03/22/20 08:11 Dose: 5,000 unit Documented by: Sodium Chloride () 250 mls @ 15 mls/hr IV .[id number] PRN PRN Reason: Saline Flush Last Infusion: 03/22/20 06:26 Dose: Infused Documented by: Sodium Chloride () 250 mls @ 15 mls/hr IV .[id number] PRN PRN Reason: Additional IVPB Infusion Last Infusion: 03/21/20 10:57 Dose: Infused Documented by: Levothyroxine Sodium (Levothyroxine 25 Mcg Tablet) 25 mcg PO DAILY@0600 [facility] Last Admin: 03/22/20 05:47 Dose: 25 mcg Documented by: Morphine Sulfate (Morphine 2 Mg/Ml Syringe) 2 mg IV Q3H PRN PRN PRN Reason: Pain Score 6-10 Last Admin: 03/18/20 19:17 Dose: 2 mg Documented by: Nutritional Formula (Nutritional Supplement (Danish) Packet) [facility] Last Admin: 03/22/20 08:10 Dose: 1 packet Documented by: Nystatin (Nystatin Powder 15gm Bottle) 1 applic TOPICAL TID [facility]; Protocol Last Admin: 03/22/20 13:58 Dose: 1 applicatio Documented by: Ondansetron HCl (Ondansetron 4 Mg/2 Ml Vial) 4 mg IV Q8H PRN PRN PRN Reason: NAUSEA/VOMITING Oxycodone HCl (Oxycodone 5 Mg Tablet) 10 mg PO Q4H PRN PRN PRN Reason: Pain Score 6-10 Last Admin: 03/22/20 08:13 Dose: 10 mg Documented by: Pantoprazole Sodium (Pantoprazole Sodium 40 Mg Tablet) 40 mg PO BID [facility] Last Admin: 03/22/20 08:10 Dose: 40 mg Documented by: Sertraline HCl (Sertraline 50 Mg Tablet) 50 mg PO BID [facility] Last Admin: 03/22/20 08:10 Dose: 50 mg Documented by: Sodium Chloride (0.9% Saline Lock 10 Ml Syringe) 10 - 40 ml IV UD PRN PRN Reason: SALINE FLUSH Last Admin: 03/18/20 19:18 Dose: 10 ml Documented by: Sodium Chloride (0.9% Saline Lock 10 Ml Syringe) 10 - 40 ml IV UD PRN PRN Reason: Open End PICC Flush Sodium Chloride (0.9 % Nacl (Sterile) Posiflush 10 Ml) 10 - 40 ml IV UD PRN PRN Reason: Port access or dressing change Last Admin: 03/20/20 16:05 Dose: 30 ml Documented by: Medical Necessity - Tobacco Use Smoking Status: Never smoker Assessment/Plan All Active Problems (Last Updated 03/16/20 @ 00:[address] Nahun Ojeda MD) Septic shock (Acute) Abdominal wall cellulitis (Acute) 1. Massive abdominal panniculus with panniculitis and extensive cellulitis. 2. Necrotizing soft tissue infection. 3. Recent weight loss. 4. Abdominal wall skin crease intertrigo. 5. Painful lymphedema left lower abdominal wall. 6. Lumbar back pain. 7. History of laparoscopic ventral hernia repair with mesh. 8. History of DVT. 9. Sepsis, resolving. Left abdominal operative dressing intact. He continues to have a large amount of serosanguineous drainage from this wound. Wound is stable. No active bleeding. Continue to do daily and PRN moistened gauze dressing changes until wound VAC supplies are available. Operative culture is negative for bacterial growth. ID is consulted and managing antibiotics. Prealbumin from today is 9.8. Encourage protein intake and supplementation. Plan he will go to [facility] upon discharge.
--- NOTE | 2020-03-22 15:03 | PN.ID_ITS ---
Patient Problems: Active and Suspected Problems (Last Updated 03/16/20 @ 00:[address] Nahun Ojeda MD) Septic shock (Acute) Abdominal wall cellulitis (Acute) Subjective: Feeling much better, no fever - Physical Exam Vitals/I&O's: Vital Signs Temp Pulse Resp BP Pulse Ox 98.6 F 67 18 99/55 L 97 03/22/20 14:02 03/22/20 14:02 03/22/20 14:02 03/22/20 14:02 03/22/20 14:02 Oxygen Flow Rate (L/min) 2 Oxygen Delivery Method Room Air Weight: 195.7 kg Body Mass Index (BMI) 72.1 Intake and Output for Last 24 Hours 03/20/20 03/21/20 03/22/20 23:59 23:59 23:59 Intake Total 2966.25 / 2966.25 2040 / 2040 1010 / 1010 Output Total 1330 / 1330 1500 / 1500 925 / 925 Balance 1636.25 / 1636.25 540 / 540 85 / 85 General: Alert, Cooperative, No apparent distress Lungs: Clear to auscultation, Normal air movement Cardiovascular: Regular rate, Regular Rhythm Abdomen: Soft, Non Tender, Non-Distended Skin: Incision Microbiology Past 72 Hours 03/17/20 Unknown Tissue - Abdominal Gram Stain - Final 03/17/20 Unknown Tissue - Abdominal Wound Culture - Final No growth aerobically. 03/17/20 Unknown Tissue - Abdominal Anaerobic Culture - Final No growth in 5 days. 03/15/20 20:10 Blood Culture (Wb) - Right Hand Blood Culture - Final No growth in 5 days. 03/15/20 20:00 Blood Culture (Wb) - Right Forearm Blood Culture - Final No growth in 5 days. Laboratory Results 03/22/20 04:43: Prealbumin 9.8 L Current Medications Acetaminophen (Acetaminophen 325 Mg Tablet) 650 mg PO Q6H PRN PRN PRN Reason: Pain Score 1-10/Temp > 100.7 F Last Admin: 03/20/20 17:27 Dose: 650 mg Documented by: Albuterol Sulfate (Albuterol 2.5 Mg/3 Ml Vial.Neb.) 2.5 mg INHALATION Q4H PRN PRN PRN Reason: Shortness of breath, wheezing Albuterol/Ipratropium (Ipratropium/Albuterol Sulfate 3 Ml Ampul.Neb) 3 ml INHALATION Q6H.RT [facility] Last Admin: 03/21/20 19:17 Dose: 3 ml Documented by: Amiodarone HCl (Amiodarone 200 Mg Tablet) 200 mg PO DAILY [facility] Last Admin: 03/22/20 08:10 Dose: 200 mg Documented by: Bupropion HCl (Bupropion 100 Mg Tablet) 100 mg PO DAILY [facility] Last Admin: 03/22/20 08:10 Dose: 100 mg Documented by: Calamine/Phenol (Menthol/Lanolin/Calamine/Znox 113 Gm Tube) 1 applic TOPICAL BID [facility]; Protocol Last Admin: 03/22/20 08:10 Dose: 1 applicatio Documented by: Carvedilol (Carvedilol 3.125 Mg Tablet) [facility] Last Admin: 03/22/20 08:10 Dose: 3.125 mg Documented by: Diazepam (Diazepam 5 Mg Tablet) 5 mg PO 4X/DAY PRN PRN PRN Reason: SPASMS Last Admin: 03/20/20 01:47 Dose: 5 mg Documented by: Docusate Sodium (Docusate Sodium 100 Mg Capsule) 100 mg PO BID [facility] Last Admin: 03/22/20 08:10 Dose: 100 mg Documented by: Heparin Sodium (Beef Lung) (Heparin Pf Lock 10 Units/Ml 50 Units/5 Ml Syringe) 50 units IV UD PRN PRN Reason: PICC Line Heparin Flush Heparin Sodium (Porcine) (Heparin Injection (Vial) 5,000 Unit/Ml Vial) 5,000 unit SC Q12 [facility] Last Admin: 03/22/20 08:11 Dose: 5,000 unit Documented by: Sodium Chloride () 250 mls @ 15 mls/hr IV .[id number] PRN PRN Reason: Saline Flush Last Infusion: 03/22/20 06:26 Dose: Infused Documented by: Sodium Chloride () 250 mls @ 15 mls/hr IV .[id number] PRN PRN Reason: Additional IVPB Infusion Last Infusion: 03/21/20 10:57 Dose: Infused Documented by: Levothyroxine Sodium (Levothyroxine 25 Mcg Tablet) 25 mcg PO DAILY@0600 [facility] Last Admin: 03/22/20 05:47 Dose: 25 mcg Documented by: Morphine Sulfate (Morphine 2 Mg/Ml Syringe) 2 mg IV Q3H PRN PRN PRN Reason: Pain Score 6-10 Last Admin: 03/18/20 19:17 Dose: 2 mg Documented by: Nutritional Formula (Nutritional Supplement (Danish) Packet) [facility] Last Admin: 03/22/20 08:10 Dose: 1 packet Documented by: Nystatin (Nystatin Powder 15gm Bottle) 1 applic TOPICAL TID [facility]; Protocol Last Admin: 03/22/20 13:58 Dose: 1 applicatio Documented by: Ondansetron HCl (Ondansetron 4 Mg/2 Ml Vial) 4 mg IV Q8H PRN PRN PRN Reason: NAUSEA/VOMITING Oxycodone HCl (Oxycodone 5 Mg Tablet) 10 mg PO Q4H PRN PRN PRN Reason: Pain Score 6-10 Last Admin: 03/22/20 14:19 Dose: 10 mg Documented by: Pantoprazole Sodium (Pantoprazole Sodium 40 Mg Tablet) 40 mg PO BID [facility] Last Admin: 03/22/20 08:10 Dose: 40 mg Documented by: Sertraline HCl (Sertraline 50 Mg Tablet) 50 mg PO BID [facility] Last Admin: 03/22/20 08:10 Dose: 50 mg Documented by: Sodium Chloride (0.9% Saline Lock 10 Ml Syringe) 10 - 40 ml IV UD PRN PRN Reason: SALINE FLUSH Last Admin: 03/18/20 19:18 Dose: 10 ml Documented by: Sodium Chloride (0.9% Saline Lock 10 Ml Syringe) 10 - 40 ml IV UD PRN PRN Reason: Open End PICC Flush Sodium Chloride (0.9 % Nacl (Sterile) Posiflush 10 Ml) 10 - 40 ml IV UD PRN PRN Reason: Port access or dressing change Last Admin: 03/20/20 16:05 Dose: 30 ml Documented by: Medical Necessity - Tobacco Use Smoking Status: Never smoker Route of nutrition/ use of supplements: [] Nutritional Intake: [] IV Site: [] Simon Catheter: [] - Assessment/Plan Antibiotics: [] Assessment/Plan: [] Active and Suspected Problems (Last Updated 03/16/20 @ 00:[address] Nahun Ojeda MD) Septic shock (Acute) Abdominal wall cellulitis (Acute) septic shock with panniculitis - taken to OR 03/[address] Pisano. Surg cx neg so far, much improved. Redness much better. Stop abx today. Will follow as needed, d/w Dr. Correa
[2020-03-22] MEDS: 0.9% Saline Lock 10 ML Syringe IV (16:39)
[2020-03-22 20:00] VITALS: BP 87/49; PULSE 58; RESP 19; TEMP 36.9; O2SAT 97
[2020-03-22] MEDS: Ipratropium/Albuterol Sulfate 3 ML AMPUL.NEB INHALATION (20:03)
[2020-03-22 20:05] VITALS: PULSE 67; RESP 18
[2020-03-23] VITALS: BP 98/57; PULSE 57; RESP 18; TEMP 35.8; O2SAT 97
[2020-03-23] MEDS: Levothyroxine 25 MCG TABLET PO (06:15)
[2020-03-23] MEDS: Nystatin Powder 15gm Bottle 1 APPLIC TOPICAL ×2 (06:15→14:03)
[2020-03-23 06:29] LABS: Absolute Lymphocyte Count 0.85 X10^3/uL (0.83-4.51); Absolute Neutrophil Count 5.3 X10^3/uL (2.0-7.7); Basophil# 0.03 X10^3/uL; Basophil% 0.4 % (0-1); Eosinophil# 0.28 X10^3/uL; Hemoglobin 9.9 g/dL (13.0-16.5); Lymphocyte # 0.85 X10^3/ul (4.0); Lymphocyte % 12.1 % (19-41); Mean Corpuscular Hgb 29.5 pg (27.0-32.0); Mean Corpuscular Volume 98.2 fL (80-94); Mean Platelet Vol. 10.4 fl (6.2-12.0); Monocyte# 0.56 X10^3/uL; Monocyte% 7.9 % (0-10); NRBC Flagged by Analyzer 0 % (0-5); Neutrophil # 5.27 X10^3/uL (2.7-7.7); Neutrophil % 74.7 % (47-70); Platelet Count 187 K/mm3 (150-450); RBC Distribution Width CV 16.5 % (11.6-14.6); RBC Distribution Width SD 57.3 fl (35.1-43.9); Red Blood Count 3.36 M/mm3 (4.6-6.2); White Blood Count 7.1 K/mm3 (4.4-11.0)
[2020-03-23 06:42] VITALS: PULSE 65; RESP 16; O2SAT 98
[2020-03-23] MEDS: Ipratropium/Albuterol Sulfate 3 ML AMPUL.NEB INHALATION ×2 (06:42→13:00)
[2020-03-23 06:57] LABS: Anion Gap 3 (5-15); BUN 27 mg/dL (7-18); BUN/Creat Ratio 28.1 RATIO (10-20); Calcium,Total 8.6 mg/dL (8.5-10.1); Chloride 115 mmol/L (98-107); Creatinine, Serum 0.96 mg/dL (0.70-1.30); EST Glomerular Filtration Rate 85 mL/min (>60); Est Glom Filt Rate - Afr Amer 103 mL/min (>60); Estimated Creatinine Clearance 73.84 ml/min; Glucose 81 mg/dL (74-106); Potassium 4.7 mmol/L (3.5-5.1); Sodium Level 139 mmol/L (136-145)
[2020-03-23 08:26] VITALS: BP 96/51; PULSE 97; RESP 18; TEMP 36.7; O2SAT 98
[2020-03-23] MEDS: oxyCODONE 5 MG Tablet 10 MG PO ×2 (08:30→14:09)
[2020-03-23] MEDS: Carvedilol 3.125 MG TABLET PO (08:32)
--- NOTE | 2020-03-23 09:18 | PCM.TXEXTCAR ---
- Diet 03/18/20 09:24 Diet: Regular - General Dietary Modifications:: Sodium Restricted Is pt able to select menu?: Yes - Routine Orders/Code Status Suppository Type: Dulcolax 10mg Suppository Frequency: Daily PRN - Wound(s) lower abd Wound Type: small nonhealing wound Dressing Change: hydrogel with dry dressing left lower/lateral abd Wound Type: Open Surgical Wound Dressing Change: Wet to Dry Dressing lt scrotal area Wound Type: Surgical Incision Dressing Change: Wet to Dry Dressing - Therapies Weight Bearing: Weight bearing as tolerated Extremity Affected:: Bilateral Lower Physical Therapy: Eval and Treat Occupational Therapy: Eval and Treat Speech Therapy: Eval and Treat - Allergies/Procedures Done in Hospital Allergies/Adverse Reactions: Allergies latex Allergy (Verified 03/15/20 19:34) Rash warfarin sodium [From Coumadin] Adverse Reaction (Verified 03/15/20 19:34) Other caused 2 holes in lungs and chest, advised to never take again - Type of Care/Length of Stay Estimated LOS: Convalescent Care Less Than 30 days Type of Care Needed: Skilled Rehab Potential: Good Prognosis: Good - Additional Orders/Day of Discharge Additional Orders: Dressing with saline irrigation, packing with gauze roll/wrap and apply abdominal pads and secured with Medipore tape. Change dressing daily until wound VAC is applied. Wound VAC need to be applied in SNF Day of Discharge: 03/23/20 - Dietary and Speech Recommendations Dietitian Recommendations/Changes: Continue Regular diet w/ sodium restriction and Danish BID to help w/ postop healing. - Follow Up Care Primary Care Physician: Esteban Tim Chi, MD [Primary Care Provider] -
--- NOTE | 2020-03-23 09:18 | PCM.DC.SUM ---
Discharge Date and Diagnosis - Problem List Patient Problems: Active and Suspected Problems (Last Updated 03/16/20 @ 00:[address] Nahun Ojeda MD) Septic shock (Acute) Abdominal wall cellulitis (Acute) Date of Admission: 03/16/20 Date of Discharge: 03/23/20 - Primary Discharge Diagnosis Acute Problems: Active Problems (Last Updated 03/16/20 @ 00:[address] Nahun Ojeda MD) Septic shock (Acute) Abdominal wall cellulitis (Acute) - Secondary Discharge Diagnosis Chronic Problems: Chronic Problems (Last Updated 03/16/20 @ 00:[address] Nahun Ojeda MD) Ulcer of abdomen wall with fat layer exposed (Chronic) Morbid obesity (Chronic) Open wound, abdominal wall, lateral (Chronic) History of ventral hernia repair (Chronic) with mesh in last 2 years at [facility] Lumbar back pain (Chronic) from weight of massive abdominal panniculus Ventral hernia (Chronic) laparoscopic repair 2 years ago with mesh Lymphedema (Chronic) painful lymphedema lower abdominal wall Intertrigo (Chronic) abdominal wall skin crease intertrigo Recent weight loss (Chronic) about 100 lbs Panniculitis (Chronic) Abdominal panniculus, symptomatic (Chronic) Presence of implantable cardioverter-defibrillator (ICD) (Chronic) History of radiofrequency ablation (RFA) procedure for cardiac arrhythmia (Chronic) 2007 @ [facility] per Dr. Lange, 2009 @ [facility] for WPW with success. 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) Rotator cuff tear (Chronic) COPD (chronic obstructive pulmonary disease) (Chronic) Anxiety and depression (Chronic) History of DVT (deep vein thrombosis) (Chronic) Diastolic heart failure (Chronic) TEX (obstructive sleep apnea) (Chronic) Hyperlipidemia (Chronic) Benign essential hypertension (Chronic) Rheumatoid arthritis (Chronic) dilated right ventricle (Chronic) Cardiomyopathy (Chronic) Super obesity (Chronic) WPW (Lfloa-Psparougc-Ymnbe syndrome) (Chronic) Atrial fibrillation (Chronic) Hospital Course and Treatment Consultations 03/17/20 06:53 Consult: Onc/Wound/administrative and program specialist Routine Comment: Operations: None Summary of Care Provided: This is a 60 years old male patient who was admitted to ICU through emergency room because of not feeling well, lower abdominal pain and redness in context of recent history of lower abdominal panniculitis status post colectomy back on September, and he was found to have septic shock . [] 1. Septic shock secondary to abdominal wall cellulitis and necrotizing fasciitis: Patient was on vasopressor and subsequently he improved. Patient off vasopressor and transferred from ICU to [facility] floor. On the floor, patient had hypotension mainly secondary to increased drainage from the wound, serous with a dark urine. Patient was given IV fluid for hypotension. The wound bed has healthy granulation tissue. No purulent discharge. Patient had wound VAC but it required to change 4canister daily therefore wound was packed with gauze after saline irrigation by wound nurse. Please see wound nurse note. Patient blood pressure is stabilized. Urine is clear. 2. abdominal wall cellulitis and necrotizing fasciitis: Patient had abdominal panniculectomy on 03/17. Necrotizing fasciitis noted. On Vanco and Zosyn. Operative tissue culture from 03/17 shows no growth. Blood culture negative for more than 48 hours. Patient had wound VAC. Blood culture was negative for 5 days. MRSA nasal screen is negative. Patient completed about 7 days of IV vancomycin and Zosyn and then discontinued on ID recommendation. Abdominal tissue culture did not grow any bacteria. 3. LARRY: Resolved. 4. Chronic condition: Multiple comorbidities complicates the present care and expect difficult and delay recovery COPD: No exacerbation morbid obesity pAfib: On amiodarone, carvedilol. Amiodarone dose decreased to 200 mg daily because of bradycardia and hypotension. Patient on minimal dose of carvedilol 3.125 mg twice daily. hypothyroid anemia: Normocytic normochromic probably mainly from fluid shift/hemoconcentration. Hemoglobin fluctuated from 10.2 on 03/16-8.2 on 03/19 and then is stabilized. Last H&H 10.. No obvious active bleeding. 5. VTE prophylaxis: SQ heparin Discharge medication reconciliation done. Discharge follow-up instructions completed. Discharge process discussed with the patient and all questions were answered to patient's satisfaction. Patient is discharged to SNF. Total time spent, exact 35 minutes on discharge meds reconciliation, examination, coordination of care with nurses and ancillary staff, review of imaging and blood test and discussion with the patient on follow-up instructions Patient Problems: Active and Suspected Problems (Last Updated 03/16/20 @ 00:[address] Nahun Ojeda MD) Septic shock (Acute) Abdominal wall cellulitis (Acute) Objective: Seen and examined today. No dizziness or shortness of breath. Patient blood pressure systolic is above 90s. Physical exam General: Alert, Oriented x3, Cooperative. BMI 72.1 kg/m? HEENT: Atraumatic, PERRLA, EOMI, Normocephalic Oral: No Gingival or Mucosal Lesions/ Ulcerations Neck: Supple, No JVD, Negative Carotid Bruits Lungs: Air entry diminished in bilateral lung bases. No crepitation/rhonchi Cardiovascular: Regular rate, Regular Rhythm, Normal S1, Normal S2, No murmurs Abdomen: Bowel Sounds Present, Soft, Non Tender, Non-Distended : Simon catheter, clear urine No renal angle tenderness. No suprapubic tenderness. Extremities: Moderate bilateral lower extremity lymphedema, Capillary Refill Less than 3 Seconds Skin: Wound bed has healthy granulation tissue. Dressing changed today. Musculoskeletal: Patient ambulates with the aid, walker. Baseline functional capacity, walks 20 feet. Bilateral lower extremity arthritis. Left shoulder rotator cuff injury Neurological: Cranial nerves II-XII grossly intact, Deep Tendon Reflexes 2+/4 and Symmetrical, Neuro grossly intact Psych/Mental Status: Normal Affect, Appropriate. - Physical Exam Vitals/I&O's: Vital Signs Temp Pulse Resp BP Pulse Ox 98.0 F 97 18 96/51 L 98 03/23/20 08:26 03/23/20 08:26 03/23/20 08:26 03/23/20 08:26 03/23/20 08:26 Oxygen Flow Rate (L/min) 2 Oxygen Delivery Method Room Air Weight: 423 lb 4.6 oz Body Mass Index (BMI) 72.1 Intake and Output for Last 24 Hours 03/21/20 03/22/20 03/23/20 23:59 23:59 23:59 Intake Total 2040 / 2040 1370 / 1670 550 / 550 Output Total 1500 / 1500 1425 / 1825 850 / 850 Balance 540 / 540 -55 / -155 -300 / -300 Microbiology Past 72 Hours 03/17/20 Unknown Tissue - Abdominal Gram Stain - Final 03/17/20 Unknown Tissue - Abdominal Wound Culture - Final No growth aerobically. 03/17/20 Unknown Tissue - Abdominal Anaerobic Culture - Final No growth in 5 days. 03/15/20 20:10 Blood Culture (Wb) - Right Hand Blood Culture - Final No growth in 5 days. 03/15/20 20:00 Blood Culture (Wb) - Right Forearm Blood Culture - Final No growth in 5 days. Laboratory Results 03/23/20 06:01: WBC 7.1, RBC 3.36 L, Hgb 9.9 L, Hct 33.0 L, MCV 98.2 H, MCH 29.5, MCHC 30.0 L, RDW Std Deviation 57.3 H, RDW Coeff of Florina 16.5 H, Plt Count 187, MPV 10.4, Immature Gran % (Auto) 0.900, Neut % (Auto) 74.7 H, Lymph % (Auto) 12.1 L, [place] % (Auto) 7.9, Eos % (Auto) 4.0, Baso % (Auto) 0.4, Absolute Neuts (auto) 5.3, Absolute Lymphs (auto) 0.85, Nucleated RBC % 0 03/23/20 06:01: Sodium 139, Potassium 4.7, Chloride 115 H, Carbon Dioxide 21.0, Anion Gap 3 L, BUN 27 H, Creatinine 0.96, Estim Creat Clear Calc 73.84, Est GFR (MDRD) Af Amer 103, Est GFR (MDRD) Non-Af 85, BUN/Creatinine Ratio 28.1 H, Glucose 81, Calcium 8.6 Current Medications Acetaminophen (Acetaminophen 325 Mg Tablet) 650 mg PO Q6H PRN PRN PRN Reason: Pain Score 1-10/Temp > 100.7 F Last Admin: 03/20/20 17:27 Dose: 650 mg Documented by: Albuterol Sulfate (Albuterol 2.5 Mg/3 Ml Vial.Neb.) 2.5 mg INHALATION Q4H PRN PRN PRN Reason: Shortness of breath, wheezing Albuterol/Ipratropium (Ipratropium/Albuterol Sulfate 3 Ml Ampul.Neb) 3 ml INHALATION Q6H.RT MATHEUS Last Admin: 03/23/20 06:42 Dose: 3 ml Documented by: Amiodarone HCl (Amiodarone 200 Mg Tablet) 200 mg PO DAILY [facility] Last Admin: 03/22/20 08:10 Dose: 200 mg Documented by: Bupropion HCl (Bupropion 100 Mg Tablet) 100 mg PO DAILY [facility] Last Admin: 03/22/20 08:10 Dose: 100 mg Documented by: Calamine/Phenol (Menthol/Lanolin/Calamine/Znox 113 Gm Tube) 1 applic TOPICAL BID [facility]; Protocol Last Admin: 03/22/20 21:18 Dose: 1 applicatio Documented by: Carvedilol (Carvedilol 3.125 Mg Tablet) 3.125 mg PO BIDCM [facility] Last Admin: 03/23/20 08:32 Dose: 3.125 mg Documented by: Diazepam (Diazepam 5 Mg Tablet) 5 mg PO 4X/DAY PRN PRN PRN Reason: SPASMS Last Admin: 03/20/20 01:47 Dose: 5 mg Documented by: Docusate Sodium (Docusate Sodium 100 Mg Capsule) 100 mg PO BID [facility] Last Admin: 03/22/20 21:19 Dose: 100 mg Documented by: Heparin Sodium (Beef Lung) (Heparin Pf Lock 10 Units/Ml 50 Units/5 Ml Syringe) 50 units IV UD PRN PRN Reason: PICC Line Heparin Flush Heparin Sodium (Porcine) (Heparin Injection (Vial) 5,000 Unit/Ml Vial) 5,000 unit SC Q12 [facility] Last Admin: 03/22/20 21:20 Dose: 5,000 unit Documented by: Sodium Chloride () 250 mls @ 15 mls/hr IV .[id number] PRN PRN Reason: Saline Flush Last Infusion: 03/22/20 06:26 Dose: Infused Documented by: Sodium Chloride () 250 mls @ 15 mls/hr IV .[id number] PRN PRN Reason: Additional IVPB Infusion Last Infusion: 03/21/20 10:57 Dose: Infused Documented by: Levothyroxine Sodium (Levothyroxine 25 Mcg Tablet) 25 mcg PO DAILY@0600 [facility] Last Admin: 03/23/20 06:15 Dose: 25 mcg Documented by: Morphine Sulfate (Morphine 2 Mg/Ml Syringe) 2 mg IV Q3H PRN PRN PRN Reason: Pain Score 6-10 Last Admin: 03/18/20 19:17 Dose: 2 mg Documented by: Nutritional Formula (Nutritional Supplement (Danish) Packet) [facility] Last Admin: 03/23/20 08:32 Dose: 1 packet Documented by: Nystatin (Nystatin Powder 15gm Bottle) 1 applic TOPICAL TID [facility]; Protocol Last Admin: 03/23/20 06:15 Dose: 1 applicatio Documented by: Ondansetron HCl (Ondansetron 4 Mg/2 Ml Vial) 4 mg IV Q8H PRN PRN PRN Reason: NAUSEA/VOMITING Oxycodone HCl (Oxycodone 5 Mg Tablet) 10 mg PO Q4H PRN PRN PRN Reason: Pain Score 6-10 Last Admin: 03/23/20 08:30 Dose: 10 mg Documented by: Pantoprazole Sodium (Pantoprazole Sodium 40 Mg Tablet) 40 mg PO BID [facility] Last Admin: 03/22/20 21:20 Dose: 40 mg Documented by: Sertraline HCl (Sertraline 50 Mg Tablet) 50 mg PO BID [facility] Last Admin: 03/22/20 21:20 Dose: 50 mg Documented by: Sodium Chloride (0.9% Saline Lock 10 Ml Syringe) 10 - 40 ml IV UD PRN PRN Reason: SALINE FLUSH Last Admin: 03/22/20 16:39 Dose: 10 ml Documented by: Sodium Chloride (0.9% Saline Lock 10 Ml Syringe) 10 - 40 ml IV UD PRN PRN Reason: Open End PICC Flush Sodium Chloride (0.9 % Nacl (Sterile) Posiflush 10 Ml) 10 - 40 ml IV UD PRN PRN Reason: Port access or dressing change Last Admin: 03/20/20 16:05 Dose: 30 ml Documented by: Home Medications: Medications to take at Discharge Bupropion HCl 100 mg PO DAILY 05/02/14 Nitroglycerin (INPATIENT USE) [Nitrostat] 0.4 mg SUBLINGUAL Q5M PRN 07/17/14 Cholecalciferol (Vitamin D3) [Vitamin D3] 3,000 unit PO DAILY 05/08/18 Cyanocobalamin (Vitamin B-12) [Vitamin B-12] 1,000 mcg PO DAILY 05/08/18 Multivitamin with Minerals [Multiple Vitamin] 2 ea PO DAILY 05/08/18 Sertraline HCl [Zoloft] 50 mg PO BID 11/05/18 levothyroxine 25 mcg tablet 25 mcg PO DAILY 05/22/19 Docusate Sodium [Colace] 100 mg PO BID #0 cap 10/23/19 Acetaminophen [Tylenol Tablet] 650 mg PO Q4H PRN PRN tab 11/05/19 Diazepam [Valium] 5 mg PO 4X/DAY PRN PRN #30 tab 11/05/19 Ipratropium/Albuterol Sulfate [Duoneb] 3 ml INHALATION Q4H PRN ampul.neb 11/05/19 Nystatin Powder [Mycostatin Powder] 1 applic TOPICAL TID bottle 11/05/19 Multivit,Stress Formula/Zinc [Stress Formula with Zinc Tab] 1 ea PO DAILY 11/18/19 Ondansetron HCl [Zofran] 4 mg PO Q6H PRN 11/18/19 Pantoprazole Sodium [Protonix] 40 mg PO BID tab 11/23/19 carvedilol 3.125 mg tablet 3.125 mg PO BID #60 tab 01/05/20 Zolpidem Tartrate [Ambien] 10 mg PO QHS 03/16/20 Amiodarone HCl [Cordarone] 200 mg PO DAILY tablet 03/23/20 Primary Care Physician: Esteban Tim Chi, MD [Primary Care Provider] - Medical Necessity - Tobacco Use Smoking Status: Never smoker Meaningful Use Info Meaningful Use Diagnoses (Choose all that apply): None applicable Inpatient E&M: [id number] [facility]
[2020-03-23] MEDS: Heparin Injection (Vial) 5,000 UNIT/ML VIAL 5000 UNIT SC (09:35)
[2020-03-23] MEDS: buPROPion 100 MG Tablet PO (09:35)
[2020-03-23] MEDS: Sertraline 50 MG Tablet PO (09:35)
[2020-03-23] MEDS: Docusate Sodium 100 MG Capsule PO (09:35)
[2020-03-23] MEDS: Amiodarone 200 MG Tablet PO (09:35)
[2020-03-23] MEDS: Pantoprazole Sodium 40 MG Tablet PO (09:35)
[2020-03-23] MEDS: Menthol/Lanolin/Calamine/Znox 113 GM Tube 1 APPLIC TOPICAL (09:36)
[2020-03-23 09:45] VITALS: PULSE 72
--- NOTE | 2020-03-23 11:01 | CASEMGMT ---
SW spoke w/[facility], they are ready for pt today. COVID test ordered, is negative. SW faxed it along w/orders for wound vac to [facility]. SW completed hospital exemption in the [facility] system. As per physician, pt is ready for discharge today. SW completed a green sheet for the staff to follow to send pt to [facility] today, let floor staff know SW available on the other floors should assistance be needed. DARION Garrett
[2020-03-23 13:01] VITALS: PULSE 60; RESP 16
[2020-03-23 14:14] VITALS: BP 92/69; PULSE 90; RESP 18; TEMP 36.8; O2SAT 93
--- NOTE | 2020-03-23 14:43 | CHAPLAIN ---
Type of Pastoral Visit ___ Initial Visit _x__ Follow-up Visit ___ On-call Visit ___ General Patient Visit ___ Spiritual Assessment ___ Family Conference ___ Bereavement ___ Rapid Response ___ Code Blue ___ Other (describe below) Pastoral Care Referral From _x__ Patient ___ Family ___ Nurse ___ Physician ___ Materials Management Supervisor ___ Internal Controls Manager ___ Other (describe below) Sacrament/Intervention _x__ Active listening ___ Anointing ___ Hindu ___ Bereavement ___ Communion ___ Shahida exploration ___ ___ Life review _x__ Prayer ___ Reconciliation ___ Sacrament of Sick _x__ Supportive presence ___ Wedding ___ Other (describe below) Pastoral Comments
== END 2020-03-23 17:30 | disposition skilled nursing facility (03) | DRG 853 ==
LOC: ED 03-16 00:05 → ICU 03-16 00:24 → MS3 03-18 16:41
PROVIDERS: Internal Medicine; Surgery; Admitting Provider Hospitalist; Emergency Provider Emergency Medicine; PCP Family Medicine Geriatric Medicine; Referring Provider Hospitalist; Visit Provider Internal Medicine
PROC: 0JB80ZZ Excision of Abdomen Subcutaneous Tissue and Fascia, Open Approach (ICD-10-PCS; CPT 15830; principal; 2020-03-17 10:35)
DX: A41.9 Sepsis, unspecified organism (principal); R65.21 Severe sepsis with septic shock; M72.6 Necrotizing fasciitis; L03.311 Cellulitis of abdominal wall; I13.0 Hypertensive heart and chronic kidney disease with heart failure and stage 1 through stage 4 chronic kidney disease, or unspecified chronic kidney disease; I50.42 Chronic combined systolic (congestive) and diastolic (congestive) heart failure; I42.9 Cardiomyopathy, unspecified; Z68.45 Body mass index [BMI] 70 or greater, adult; E87.2 Acidosis; E87.1 Hypo-osmolality and hyponatremia; N17.9 Acute kidney failure, unspecified; L30.4 Erythema intertrigo; E66.01 Morbid (severe) obesity due to excess calories; J44.9 Chronic obstructive pulmonary disease, unspecified; F32.9 Major depressive disorder, single episode, unspecified; I89.0 Lymphedema, not elsewhere classified; L98.492 Non-pressure chronic ulcer of skin of other sites with fat layer exposed; F41.9 Anxiety disorder, unspecified; G47.33 Obstructive sleep apnea (adult) (pediatric); E78.5 Hyperlipidemia, unspecified; I48.0 Paroxysmal atrial fibrillation; M79.3 Panniculitis, unspecified; N18.30 Chronic kidney disease, stage 3 unspecified; E03.9 Hypothyroidism, unspecified; D64.9 Anemia, unspecified; Z95.810 Presence of automatic (implantable) cardiac defibrillator; M54.5 Low back pain; Z86.718 Personal history of other venous thrombosis and embolism; Z79.890 Hormone replacement therapy; Z82.49 Family history of ischemic heart disease and other diseases of the circulatory system; Z90.49 Acquired absence of other specified parts of digestive tract; M06.9 Rheumatoid arthritis, unspecified; D69.6 Thrombocytopenia, unspecified; I45.6 Pre-excitation syndrome; K43.9 Ventral hernia without obstruction or gangrene
CPT/HCPCS: 36415; 36569; 71045; 80048; 80053; 80202; 82728; 83540; 83550; 83605; 84134; 85025; 85045; 86850; 86900; 86901; 86920; 86922; 87040; 87070; 87075; 87081; 87102; 87176; 87205; 87206; 87426; 87640; 88304; 88305; 88312; 93005; 94640; 97110; 97116; 97129; 97130; 97162; 97166; 97530; 97535; 99251; 99285; J7030; J7040; J7050; J7120; A4216; G0463; J2405

== ENCOUNTER 2020-03-31 10:59 | Emergency (ER) | payer MEDICARE, MEDICAID, SELFPAY ==
[2020-03-17 09:00] VITALS: BMI 72.1
[2020-03-31 11:00] VITALS: BP 108/76; PULSE 72; RESP 20; TEMP 36.7; O2SAT 95; BMI 67.1
[2020-03-31 11:09] VITALS: BP 108/76; PULSE 72; RESP 16; TEMP 36.7; O2SAT 95
[2020-03-31 11:10] VITALS: BP 108/76; PULSE 72
--- NOTE | 2020-03-31 11:14 | ED.VIS.GEN ---
History of Present Illness Chief Complaint: Wound Check Informant: Patient Narrative: Patient is a 60-year-old male with a past medical history of hyperlipidemia, COPD, lymphedema, TEX, CHF, A. fib, hypothyroidism who presents to the emergency department for suspected wound infection. He had cellulitis of his pannus which required I&D in the OR on 03/17/2020 after he developed septic shock. Patient did previously have cellulitis of the right side of his pannus in November which required drainage. He states he has been off antibiotics but is not sure for how long. He does have a wound VAC present which was last changed yesterday. Today they noticed that the discharge coming from the wound VAC has changed to purulent material. He does have some pain around the site. He denies any fevers or chills. No nausea or vomiting. No pain elsewhere besides around the previous incision. Denies any chest pain or shortness of breath. No rashes elsewhere. Past Medical History - Allergies and Home Meds Allergies/Adverse Reactions: Allergies latex Allergy (Verified 03/31/20 10:59) Rash warfarin sodium [From Coumadin] Adverse Reaction (Verified 03/31/20 10:59) Other caused 2 holes in lungs and chest, advised to never take again Primary Care Physician: Esteban Tim Chi, MD [Primary Care Provider] - 2 Days for wound check Prior records reviewed: Yes Past Medical History: - - Per HPI Surgical History: cholecystectomy, herniorrhaphy, - - Cardiac ablation x 2, Defib placement, Cholecystectomy, LLE surgery s/p trauma w/ hardware removal later, gastric sleeve surgery Smoking Status: Never smoker - Family History Maternal Family History: Family History (Last Reviewed 07/19/19 @ 22:[address] Anthony Pisano MD) Sister Arthritis Brother Psychiatric care Family History: Reports: Heart Disease, Hypertension Paternal Family History: Family History (Last Reviewed 07/19/19 @ 22:[address] Anthony Pisano MD) Sister Arthritis Brother Psychiatric care Family History: Reports: Heart Disease, Hypertension Review of Systems All systems negative except as indicated General: Denies: Chills, Fever, Sweats Eyes: Denies: Visual changes - bilaterally, Diplopia ENT: Denies: Rhinorrhea, Sore throat Cardiovascular: Denies: Chest pain, Palpitations Respiratory: Denies: Dyspnea, Cough, Dyspnea on exertion Gastrointestinal: Reports: Abdominal pain. Denies: Nausea, Vomiting, Diarrhea Genitourinary: Denies: Dysuria, Hematuria, Frequency Musculoskeletal: Denies: Back pain, Extremity Pain Skin: Reports: Wounds. Denies: Rash Neurological: Denies: Headache, Weakness, Numbness Physical Exam Vital Signs/Narrative: Vital Signs Temp Pulse Resp BP Pulse Ox 03/31/20 11:10 72 108/76 03/31/20 11:09 98.0 F 72 16 108/76 95 03/31/20 11:00 98.0 F 72 20 H 108/76 95 Inital Vital Signs reviewed: Yes General: Obese, No Acute Distress Head: Normocephalic, Atraumatic Eyes: Perrl, EOMI ENT: Moist mucous membranes, No rhinorrhea Neck: Supple, Nontender Cardiovascular: Regular rate, Regular rhythm, No murmurs Respiratory: No distress, CTA bilaterally, Chest nontender Abdomen: Soft, Nontender, Nondistended, Normal bowel sounds, - - Large incision with wound VAC present over the left lower pannus. There is a white purulent discharge present in the vacuum tube. Foul smell present. No crepitus appreciable, no surrounding cellulitis. Back: Nontender, Normal Inspection Extremities: Nontender, No edema Skin: Normal color, No rash Neurological: Alert, Oriented x3, Cranial nerves II-XII grossly intact, Normal Strength, Normal Sensation Psychological: Normal affect, Normal Mood Diagnostic/Tx/Re-eval - Medical Decision Making Patient presents to the ED for suspected wound infection. He had septic shock and had this I&D did in February. Upon arrival to the emergency department he is in no acute distress. Vital signs within normal limits. There is a foul smell present and does appear to have purulent discharge present. Will check basic lab work at this time. Patient's lab work did not reveal any significant acute abnormality. No elevation of his white count lactic acid within normal limits. I did contact patient's general surgeon, Dr. Pisano. Since patient has normal vital signs, no significant lab work-up abnormality and is well-appearing we will put him on oral antibiotics. He did request a wound culture and to do wet-to-dry dressings every 6 hours until he follows up with wound care this coming Sunday. Strict return precautions were discussed with him including any worsening abdominal pain, streaking from the area, developing any fever/chills. He understands and is agreeable this plan. Discharged home in stable condition. He is given a prescription for Bactrim and Keflex and is given first dose here in the ED. ED Disposition - Plan for ED Patient: Disposition: Home or Assisted Living Diagnosis: Wound infection, Open wound, abdominal wall, lateral Instructions: ED Wound Check (Infection) Prescriptions: Smz/Tmp Ds [Bactrim Ds] 2 tab PO BID #7 tab Transmission Status: Received by LIANA SCHWARTZ RD Cephalexin [Keflex] 500 mg PO Q6 7 Days #28 cap Transmission Status: Received by LIANA SCHWARTZ RD Referrals: Esteban Tim Chi, MD [Primary Care Provider] - 2 Days for wound check Additional Instructions: Please do wet-to-dry dressings every 6 hours with Dakin's solution until seen by wound care.
[2020-03-31 11:48] LABS: Absolute Lymphocyte Count 0.66 X10^3/uL (0.83-4.51); Absolute Neutrophil Count 4.6 X10^3/uL (2.0-7.7); Basophil# 0.06 X10^3/uL; Basophil% 0.9 % (0-1); Eosinophil# 0.15 X10^3/uL; Eosinophils% 2.4 % (0-5); Hematocrit 30.1 % (40-54); Hemoglobin 9.2 g/dL (13.0-16.5); Lymphocyte # 0.66 X10^3/ul (4.0); Lymphocyte % 10.4 % (19-41); Mean Corp Hgb Conc 30.6 g/dL (32-36); Mean Corpuscular Hgb 29.7 pg (27.0-32.0); Mean Corpuscular Volume 97.1 fL (80-94); Mean Platelet Vol. 10.6 fl (6.2-12.0); Monocyte% 12.7 % (0-10); NRBC Flagged by Analyzer 0 % (0-5); Neutrophil # 4.63 X10^3/uL (2.7-7.7); Neutrophil % 73.3 % (47-70); Platelet Count 385 K/mm3 (150-450); RBC Distribution Width CV 18.3 % (11.6-14.6); RBC Distribution Width SD 63.4 fl (35.1-43.9); White Blood Count 6.3 K/mm3 (4.4-11.0)
[2020-03-31 11:59] LABS: Anion Gap 4 (5-15); BUN 17 mg/dL (7-18); BUN/Creat Ratio 19.5 RATIO (10-20); Calcium,Total 8.8 mg/dL (8.5-10.1); Chloride 108 mmol/L (98-107); Creatinine, Serum 0.87 mg/dL (0.70-1.30); EST Glomerular Filtration Rate 95 mL/min (>60); Est Glom Filt Rate - Afr Amer 115 mL/min (>60); Estimated Creatinine Clearance 81.48 ml/min; Glucose 88 mg/dL (74-106); Potassium 4.1 mmol/L (3.5-5.1); Sodium Level 139 mmol/L (136-145)
[2020-03-31 12:04] LABS: Lactic Acid 0.9 mmol/L (0.4-1.9)
[2020-03-31 13:41] VITALS: BP 112/76; PULSE 73; RESP 20; TEMP 35.8; O2SAT 95; O2SAT 97
[2020-03-31] MEDS: Smz/Tmp Ds Tablet 2 TABLET PO (15:16)
[2020-03-31] MEDS: Cephalexin 250 MG Capsule 500 MG PO (15:16)
[2020-03-31 15:56] VITALS: BP 101/62; PULSE 84; RESP 17; O2SAT 98
== END 2020-03-31 15:59 | disposition home or self-care (01) ==
PROVIDERS: Emergency Provider Emergency Medicine; PCP Family Medicine Geriatric Medicine
DX: S31.109A Unspecified open wound of abdominal wall, unspecified quadrant without penetration into peritoneal cavity, initial encounter (principal); Y83.8 Other surgical procedures as the cause of abnormal reaction of the patient, or of later complication, without mention of misadventure at the time of the procedure; E03.9 Hypothyroidism, unspecified; E78.5 Hyperlipidemia, unspecified; G47.33 Obstructive sleep apnea (adult) (pediatric); I48.91 Unspecified atrial fibrillation; J44.9 Chronic obstructive pulmonary disease, unspecified; Z82.49 Family history of ischemic heart disease and other diseases of the circulatory system; Z82.61 Family history of arthritis; Z90.49 Acquired absence of other specified parts of digestive tract; Z91.040 Latex allergy status
CPT/HCPCS: 80048; 83605; 85025; 87040; 87070; 87077; 87149; 87186; 87205; 99285; A4216

== ENCOUNTER 2020-04-05 09:30 | Outpatient (RCR) | payer MEDICARE, MEDICAID, SELFPAY ==
[2020-03-17 09:00] VITALS: BMI 72.1
[2020-03-26 00:15] VITALS: BP 140/87; PULSE 86; RESP 20; TEMP 36.1
[2020-04-05 09:19] VITALS: BP 118/62; PULSE 87; TEMP 36.1; BMI 67.1
--- NOTE | 2020-04-05 13:13 | PCM.WC.PN ---
(1) Ulcer of abdomen wall with fat layer exposed Status: Chronic Code(s): L98.492 - Non-pressure chronic ulcer of skin of other sites with fat layer exposed (2) Morbid obesity Status: Chronic Code(s): E66.01 - Morbid (severe) obesity due to excess calories (3) Lymphedema Status: Chronic Code(s): I89.0 - Lymphedema, not elsewhere classified Comment: painful lymphedema lower abdominal wall (4) Intertrigo Status: Chronic Code(s): L30.4 - Erythema intertrigo Comment: abdominal wall skin crease intertrigo (5) Abdominal panniculus, symptomatic Status: Chronic Code(s): E65 - Localized adiposity Type of Wound Date of Service: 04/05/20 Chief Complaint: Nonhealing ulcer right abdominal wall. History of Wound: Surgery 03/17/20 - 1. Surgical preparation left abdominal wall with excisional debridement skin, subcutaneous tissue, and fascia for necrotizing soft tissue infection (576 cm2). 2. Abdominal panniculectomy. Surgical cultures were negative for growth. He was admitted on 03/16/20 for sepsis and cellulitis of the left abdominal wall. He was discharged on 03/23/20 to [facility]. He was not discharged with any antibiotics. He was seen in the ED on 03/31/20 for wound infection, issues with his wound VAC. Wound cultures were drawn and he was sent back to [facility] on Batrim DS and Keflex. Wound culture from 03/31/20 was positive for Klebsiella pneumoniae, Proteus mirabilis, and MRSA. Will start him on Doxycycline, Levaquin and Augmentin and a a probiotic. Surgery 10/21/19 - 1. Surgical preparation right abdominal wall with excisional debridement skin, subcutaneous tissue, and fascia necrotizing soft tissue infection (731 cm2). 2. Abdominal panniculectomy. Wound care - Collagen Hydrogel. Operative cultures - negative. He was discharged on Cefadroxil and finished them. Patient was having with issues with copious amounts of drainage and difficulty dealing with the wound at home. He was admitted on 11/03/19. Wound cultures from 11/03/19 were positive for Enterobacter cloacae, Enterococcus falcalis and Proteus mirabilis. He was placed on IV Zosyn and Vancomycin. He was discharged on 11/05/19 to [facility] [place] and continued Zosyn through a PICC line and has finished them. The PICC line was pulled. Prealbumin from 11/03/19 was 14.9. Encourage nutritional supplementation with protein to help the healing process. Today he denies fevers and states his appetite is ok. Progress of Wound: Left abdominal wound stable. Right lower abdominal ulcer is almost healed. - Physical Exam Vital Signs Temp Pulse Resp BP 97.0 F L 87 20 H 118/62 04/05/20 09:19 04/05/20 09:19 03/26/20 00:15 04/05/20 09:19 General: Alert, Oriented x3, Cooperative HEENT: Atraumatic Oral: Moist Mucosa Lungs: Normal air movement Cardiovascular: Regular rate Abdomen: Obese Extremities: Capillary Refill Less than 3 Seconds, Edema Skin: Ulcer/ Wound - Left abdominal wound is pink and stable. Right lower abdominal ulcer is improved and almost healed. Wound Measurements and Assessment WC - Nurse 1 - General Ulcer Measurement Start: 04/05/20 09:18 Freq: Status: Active Protocol: Activity Type Activity Date Activity User E-Sign Co-Sign Detail Recorded Client Recorded Date Recorded By Document 04/05/20 09:19 KR [id number] 04/05/20 09:31 KR 04/05/20 09:19 Wound Center Nurse 1 [Ulcer Assessment] #1 lower abd post op -Current Size (cm) - Length 11 -Current Size (cm) - Width 35.9 -Current Size (cm) - Depth 8.5 -Total Square Cm 394.9 -Tunneling Position (O'clock) 9 -Tunneling Distance (cm) 5 -Tunneling Position #2 (O'clock) 3 -Tunneling Distance #2 (cm) 13.3 -Exudate Amt Medium -Exudate Type Serosanguineous -Wound Margin Thickened & Rolled Under -Granulation Amt Large (67-100%) -Granulation Quality [place],Red -Necrosis Amt Small (1-33%) -Necrotic Tissue Type Adherent Slough -Structure Exposed Fat Layer Exposed -Texture (Julia-wound Skin Appearance) Assessed, Scarring -Moisture (Julia-wound Skin Appearance Assessed, ) Maceration -Color (Julia-wound Skin Appearance) Assessed, Erythema -Temperature (Julia-wound Skin No Abnormality Appearance) (Pt Warm) -Ulcer Cleansing soap and water -Anesthetic Used 4% Lidocaine Solution WC - Nurse 2 - General Ulcer CM Notes Start: 04/05/20 09:18 Freq: Status: Active Protocol: Activity Type Activity Date Activity User E-Sign Co-Sign Detail Recorded Client Recorded Date Recorded By Document 04/05/20 09:54 [id number] 04/05/20 10:01 NED 04/05/20 09:54 Wound Center Nurse 2 [Procedure/Treatment] -Time 09:56 -Correct Patient Yes -Correct Side, Site, Position Yes -Correct Procedure Yes -Procedure Performed Yes -Type of Procedure Debridement -Clinical Debridement Subcutaneous -Tissue Removed Subcutaneous -Post Debridement (cm) - Length 14 -Post Debridement (cm) - Width 37 -Post Debridement (cm) - Depth 18 -Total Square (Post) (cm) 518 -Area of Debridement (cm) - Length 14 -Area of Debridement (cm) - Width 37 -Total Square (Area) (cm) 518 -Tunneling No -Undermining/Tunneling No -Circular Undermining No -Wound/Ulcer Outcome Not Healed -Ulcer Cleansing Rinsed/ Irrigated with Saline -Foul Odor after Cleansing No -Bioengineered Tissue No -Bleeding Controlled with Pressure -Offloading No -Treatment Response Procedure Tolerated Well -Debridement - Subq, 1st 20sq cm Yes -Debridement, SubQ, ea addt'l 20sq cm 11 or part thereof [See Physician Procedure note for Specifics] Pain Scale: 0-10 Numeric [Pain] -Is Patient Pain Free? Yes - Nurse 3 - General Ulcer D/C NN Start: 04/05/20 09:18 Freq: Status: Active Protocol: Activity Type Activity Date Activity User E-Sign Co-Sign Detail Recorded Client Recorded Date Recorded By Document 04/05/20 10:16 [facility] [id number] 04/05/20 10:17 [facility] 04/05/20 10:16 Wound Care Nurse 3 [Wound Dressing] #1 lower abd post op -Ulcer Cleansing Rinsed/ Irrigated with Saline -Foul Odor after Cleansing No -Primary Dressing Applied Other -Other Dressing MOIST TO DRY -Primary Dressing Covered/Secured Secured with with Tape,Other -Other Covering ABD [Post Procedure Tolerated] -Treatment Response Procedure Tolerated Well Pain Scale: 0-10 Numeric [Pain] -Is Patient Pain Free? Yes - Visit Discharge [Visit Discharge Information] -Discharge Condition Stable -Ambulatory Status Stretcher -Transportation Ambulance [Facility Notification] -Facility Type [facility] Musculoskeletal: No Tenderness to Palpation of Joints or Extremities Neurological: Cranial nerves II-XII grossly intact Psych/Mental Status: Normal Affect, Appropriate Debridement Note Post-Debridement Measurements/Treatment SHALINI - Nurse 2 - General Ulcer CM Notes Start: 04/05/20 09:18 Freq: Status: Active Protocol: Activity Type Activity Date Activity User E-Sign Co-Sign Detail Recorded Client Recorded Date Recorded By Document 04/05/20 09:54 [id number] 04/05/20 10:01 NED 04/05/20 09:54 Wound Center Nurse 2 #1 lower abd post op -Time 09:56 -Correct Patient Yes -Correct Side, Site, Position Yes -Correct Procedure Yes -Procedure Performed Yes -Type of Procedure Debridement -Clinical Debridement Subcutaneous -Tissue Removed Subcutaneous -Post Debridement (cm) - Length 14 -Post Debridement (cm) - Width 37 -Post Debridement (cm) - Depth 18 -Total Square (Post) (cm) 518 -Area of Debridement (cm) - Length 14 -Area of Debridement (cm) - Width 37 -Total Square (Area) (cm) 518 -Tunneling No -Undermining/Tunneling No -Circular Undermining No -Wound/Ulcer Outcome Not Healed -Ulcer Cleansing Rinsed/ Irrigated with Saline -Foul Odor after Cleansing No -Bioengineered Tissue No -Bleeding Controlled with Pressure -Offloading No -Treatment Response Procedure Tolerated Well -Debridement - Subq, 1st 20sq cm Yes -Debridement, SubQ, ea addt'l 20sq cm 11 or part thereof Pain Scale: 0-10 Numeric Is Patient Pain Free? Yes SHALINI Chapa Nurse 3 - General Ulcer D/C NN Start: 04/05/20 09:18 Freq: Status: Active Protocol: Activity Type Activity Date Activity User E-Sign Co-Sign Detail Recorded Client Recorded Date Recorded By Document 04/05/20 10:16 [facility] [id number] 04/05/20 10:17 [facility] 04/05/20 10:16 Wound Care Nurse 3 #1 lower abd post op -Ulcer Cleansing Rinsed/ Irrigated with Saline -Foul Odor after Cleansing No -Primary Dressing Applied Other -Other Dressing MOIST TO DRY -Primary Dressing Covered/Secured with Secured with Tape,Other -Other Covering ABD Treatment Response Procedure Tolerated Well Pain Scale: 0-10 Numeric Is Patient Pain Free? Yes WC - Visit Discharge Discharge Condition Stable Ambulatory Status Stretcher Transportation Ambulance Facility Type [facility] Wound debrided: abdominal wound Laterality: Left Type of Debridement: Excisional debridement Anesthesia Used: 5% Lidocaine Gel Depth: Down to and including healthy tissue, in the subcutaneous layer, to muscle Percentage of wound debrided: 100 Instrument Used: 7mm curette Tissue Removed: Subcutaneous tissue and slough Severity: Fat Layer Exposed Amount of bleeding with debridement: Moderate Bleeding Controlled with: Pressure, Compression and gauze Patient tolerated procedure well - Additional Wound Wound debrided: lower abdominal ulcer is stable Laterality: Right Assessment/Plan Active Problems (Last Updated 03/16/20 @ 00:[address] Nahun Ojeda MD) Ulcer of abdomen wall with fat layer exposed (Chronic) Morbid obesity (Chronic) Lymphedema (Chronic) painful lymphedema lower abdominal wall Intertrigo (Chronic) abdominal wall skin crease intertrigo Abdominal panniculus, symptomatic (Chronic) Assessment: 1. Massive abdominal panniculus with panniculitis. 2. Necrotizing soft tissue infection. 3. Nonhealing ulcer right abdominal wall. 4. Recent weight loss. 5. Abdominal wall skin crease intertrigo. 6. Painful lymphedema lower abdominal wall. 7. Lumbar back pain. 8. History of laparoscopic ventral hernia repair with mesh. 9. History of DVT. 10. s/p surgical preparation right abdominal wall with excisional debridement skin, subcutaneous tissue, and fascia necrotizing soft tissue infection (731 cm2) and abdominal panniculectomy. Plan: Surgery 03/17/20 - 1. Surgical preparation left abdominal wall with excisional debridement skin, subcutaneous tissue, and fascia for necrotizing soft tissue infection (576 cm2). 2. Abdominal panniculectomy. Surgical cultures were negative for growth. He was admitted on 03/16/20 for sepsis and cellulitis of the left abdominal wall. He was discharged on 03/23/20 to [facility]. He was not discharged with any antibiotics. His Prealbumin 8.2 on 03/18/20. Will consult a dietitian at [facility] [place] to increased protein. He was seen in the ED on 03/31/20 for wound infection, issues with his wound VAC. Wound cultures were drawn and he was sent back to [facility] on Batrim DS and Keflex. Wound culture from 03/31/20 was positive for Klebsiella pneumoniae, Proteus mirabilis, and MRSA. Will start him on Doxycycline, Levaquin and Augmentin and a a probiotic. Wound care - Dakin's moistened gauze to the left abdominal wound daily. Continue Collagen hydrogel covered by gauze daily to right lower abdomen. Patient's wound cultures collected on 01/05/2020 were positive for 2+ bacillus species, not anthracis. This is likely a contaminant and we will not initiate treatment at this time due to good response with antifungal treatment. He finished Zosyn for cultures on 11/03/19 that showed Enterobacter cloacae, Enterococcus faecalis, and Proteus mirabilis. His Prealbumin from 11/03/19 was 14.9. Encourage nutritional supplementation with protein to help the healing process. He has persistent dependent edema left abdominal wall aspect of his panniculus. Will schedule further excisional debridement and abdominal panniculuectomy next month. Patient was informed of the risks and complications of the procedure including alternatives to surgery. These were discussed with him personally. He voices understanding and wishes to proceed. Followup 2 weeks. [id number]: [id number] Global Visit
== END 2020-04-25 23:59 ==
LOC: WC 09:30
PROVIDERS: PCP Family Medicine Geriatric Medicine; Referring Provider Surgery; Visit Provider Surgery
DX: M79.3 Panniculitis, unspecified (principal); I96 Gangrene, not elsewhere classified; L98.492 Non-pressure chronic ulcer of skin of other sites with fat layer exposed; E66.01 Morbid (severe) obesity due to excess calories; I89.0 Lymphedema, not elsewhere classified; L30.4 Erythema intertrigo; E65 Localized adiposity; Z86.718 Personal history of other venous thrombosis and embolism; M54.5 Low back pain
CPT/HCPCS: 11042; 11045

== ENCOUNTER 2020-05-17 10:30 | Outpatient (RCR) | payer MEDICARE, MEDICAID, SELFPAY ==
[2020-04-26 00:17] VITALS: BP 118/62; PULSE 87; RESP 20; TEMP 36.1
[2020-05-03 09:34] VITALS: BP 122/72; PULSE 82; TEMP 36.6; BMI 67.1
--- NOTE | 2020-05-03 12:20 | PCM.WC.PN ---
Type of Wound Date of Service: 05/03/20 Chief Complaint: Nonhealing ulcer right abdominal wall. History of Wound: Surgery 03/17/20 - 1. Surgical preparation left abdominal wall with excisional debridement skin, subcutaneous tissue, and fascia for necrotizing soft tissue infection (576 cm2). 2. Abdominal panniculectomy. Surgical cultures were negative for growth. He was admitted on 03/16/20 for sepsis and cellulitis of the left abdominal wall. He was discharged on 03/23/20 to [facility]. He was not discharged with any antibiotics. He was seen in the ED on 03/31/20 for wound infection, issues with his wound VAC. Wound cultures were drawn and he was sent back to [facility] on Batrim DS and Keflex. Wound culture from 03/31/20 was positive for Klebsiella pneumoniae, Proteus mirabilis, and MRSA. Will start him on Doxycycline, Levaquin and Augmentin and a a probiotic. Surgery 10/21/19 - 1. Surgical preparation right abdominal wall with excisional debridement skin, subcutaneous tissue, and fascia necrotizing soft tissue infection (731 cm2). 2. Abdominal panniculectomy. Wound care - Collagen Hydrogel. Operative cultures - negative. He was discharged on Cefadroxil and finished them. Patient was having with issues with copious amounts of drainage and difficulty dealing with the wound at home. He was admitted on 11/03/19. Wound cultures from 11/03/19 were positive for Enterobacter cloacae, Enterococcus falcalis and Proteus mirabilis. He was placed on IV Zosyn and Vancomycin. He was discharged on 11/05/19 to [facility] and continued Zosyn through a PICC line and has finished them. The PICC line was pulled. Prealbumin from 11/03/19 was 14.9. Encourage nutritional supplementation with protein to help the healing process. Today he denies fevers and states his appetite is ok. Progress of Wound: Left abdominal wound stable. Right lower abdominal ulcer is almost healed. - Physical Exam Vital Signs Temp Pulse Resp BP 97.8 F 82 20 H 122/72 H 05/03/20 09:34 05/03/20 09:34 04/26/20 00:17 05/03/20 09:34 Wound Measurements and Assessment WC - Nurse 1 - General Ulcer Measurement Start: 02/08/21 09:34 Freq: Status: Active Protocol: Activity Type Activity Date Activity User E-Sign Co-Sign Detail Recorded Client Recorded Date Recorded By Document 05/03/20 09:34 SIENA [id number] 05/03/20 09:43 KR 05/03/20 09:34 Wound Center Nurse 1 [Ulcer Assessment] #1 lower abd post op -Current Size (cm) - Length 8.5 -Current Size (cm) - Width 31.2 -Current Size (cm) - Depth 14.5 -Total Square Cm 265.20 -Exudate Amt Large -Exudate Type Serosanguineous -Wound Margin Distinct, Outline Attached -Granulation Amt Medium (34-66%) -Granulation Quality Red -Necrosis Amt Medium (34-66%) -Necrotic Tissue Type Adherent Slough -Texture (Julia-wound Skin Appearance) Assessed, Scarring -Color (Julia-wound Skin Appearance) No Abnormality, Assessed -Temperature (Julia-wound Skin No Abnormality Appearance) (Pt Warm) -Tenderness on Palpation (Julia-wound No Skin Appearance) -Ulcer Cleansing soap and water -Foul Odor after Cleansing No -Anesthetic Used 4% Lidocaine Solution WC - Nurse 2 - General Ulcer CM Notes Start: 05/03/20 09:34 Freq: Status: Active Protocol: Activity Type Activity Date Activity User E-Sign Co-Sign Detail Recorded Client Recorded Date Recorded By Document 05/03/20 10:18 NED [id number] 05/03/20 10:19 NED 05/03/20 10:18 Wound Center Nurse 2 [Procedure/Treatment] -Time 10:18 -Correct Patient Yes -Correct Side, Site, Position Yes -Correct Procedure Yes -Procedure Performed Yes -Type of Procedure Debridement -Clinical Debridement Subcutaneous -Tissue Removed Subcutaneous -Post Debridement (cm) - Length 7.8 -Post Debridement (cm) - Width 30 -Post Debridement (cm) - Depth 14 -Total Square (Post) (cm) 234.0 -Area of Debridement (cm) - Length 7.8 -Area of Debridement (cm) - Width 30 -Total Square (Area) (cm) 234.0 -Tunneling No -Undermining/Tunneling No -Circular Undermining No -Wound/Ulcer Outcome Not Healed -Ulcer Cleansing Rinsed/ Irrigated with Saline -Foul Odor after Cleansing No -Bioengineered Tissue No -Bleeding Controlled with Pressure -Offloading No -Treatment Response Procedure Tolerated Well -Debridement - Subq, 1st 20sq cm Yes -Debridement, SubQ, ea addt'l 20sq cm 11 or part thereof [See Physician Procedure note for Specifics] Pain Scale: 0-10 Numeric [Pain] -Is Patient Pain Free? Yes - Nurse 3 - General Ulcer D/C NN Start: 05/03/20 09:34 Freq: Status: Active Protocol: Activity Type Activity Date Activity User E-Sign Co-Sign Detail Recorded Client Recorded Date Recorded By Document 05/03/20 10:39 [facility] [id number] 05/03/20 10:40 [facility] 05/03/20 10:39 Wound Care Nurse 3 [Wound Dressing] #1 lower abd post op -Ulcer Cleansing Rinsed/ Irrigated with Saline -Foul Odor after Cleansing No -Primary Dressing Applied Other -Other Dressing moist to dry -Primary Dressing Covered/Secured Secured with with Tape,Other -Other Covering abd [Post Procedure Tolerated] -Treatment Response Procedure Tolerated Well Pain Scale: 0-10 Numeric [Pain] -Is Patient Pain Free? Yes - Visit Discharge [Visit Discharge Information] -Discharge Condition Stable -Ambulatory Status Wheelchair -Transportation [place] [Facility Notification] -Facility Type Home Health Debridement Note Post-Debridement Measurements/Treatment - Nurse 2 - General Ulcer CM Notes Start: 05/03/20 09:34 Freq: Status: Active Protocol: Activity Type Activity Date Activity User E-Sign Co-Sign Detail Recorded Client Recorded Date Recorded By Document 05/03/20 10:18 [id number] 05/03/20 10:19 NED 05/03/20 10:18 Wound Center Nurse 2 #1 lower abd post op -Time 10:18 -Correct Patient Yes -Correct Side, Site, Position Yes -Correct Procedure Yes -Procedure Performed Yes -Type of Procedure Debridement -Clinical Debridement Subcutaneous -Tissue Removed Subcutaneous -Post Debridement (cm) - Length 7.8 -Post Debridement (cm) - Width 30 -Post Debridement (cm) - Depth 14 -Total Square (Post) (cm) 234.0 -Area of Debridement (cm) - Length 7.8 -Area of Debridement (cm) - Width 30 -Total Square (Area) (cm) 234.0 -Tunneling No -Undermining/Tunneling No -Circular Undermining No -Wound/Ulcer Outcome Not Healed -Ulcer Cleansing Rinsed/ Irrigated with Saline -Foul Odor after Cleansing No -Bioengineered Tissue No -Bleeding Controlled with Pressure -Offloading No -Treatment Response Procedure Tolerated Well -Debridement - Subq, 1st 20sq cm Yes -Debridement, SubQ, ea addt'l 20sq cm 11 or part thereof Pain Scale: 0-10 Numeric Is Patient Pain Free? Yes - Nurse 3 - General Ulcer D/C NN Start: 05/03/20 09:34 Freq: Status: Active Protocol: Activity Type Activity Date Activity User E-Sign Co-Sign Detail Recorded Client Recorded Date Recorded By Document 05/03/20 10:39 [facility] [id number] 05/03/20 10:40 [facility] 05/03/20 10:39 Wound Care Nurse 3 #1 lower abd post op -Ulcer Cleansing Rinsed/ Irrigated with Saline -Foul Odor after Cleansing No -Primary Dressing Applied Other -Other Dressing moist to dry -Primary Dressing Covered/Secured with Secured with Tape,Other -Other Covering abd Treatment Response Procedure Tolerated Well Pain Scale: 0-10 Numeric Is Patient Pain Free? Yes - Visit Discharge Discharge Condition Stable Ambulatory Status Wheelchair Transportation [facility] Type Home Health Assessment/Plan Assessment: 1. Massive abdominal panniculus with panniculitis. 2. Necrotizing soft tissue infection. 3. Nonhealing ulcer right abdominal wall. 4. Recent weight loss. 5. Abdominal wall skin crease intertrigo. 6. Painful lymphedema lower abdominal wall. 7. Lumbar back pain. 8. History of laparoscopic ventral hernia repair with mesh. 9. History of DVT. 10. s/p surgical preparation right abdominal wall with excisional debridement skin, subcutaneous tissue, and fascia necrotizing soft tissue infection (731 cm2) and abdominal panniculectomy. Plan: Surgery 03/17/20 - 1. Surgical preparation left abdominal wall with excisional debridement skin, subcutaneous tissue, and fascia for necrotizing soft tissue infection (576 cm2). 2. Abdominal panniculectomy. Surgical cultures were negative for growth. He was admitted on 03/16/20 for sepsis and cellulitis of the left abdominal wall. He was discharged on 03/23/20 to [facility]. He was not discharged with any antibiotics. His Prealbumin 8.2 on 03/18/20. Will consult a dietitian at [facility] to increased protein. He was seen in the ED on 03/31/20 for wound infection, issues with his wound VAC. Wound cultures were drawn and he was sent back to [facility] on Batrim DS and Keflex. Wound culture from 03/31/20 was positive for Klebsiella pneumoniae, Proteus mirabilis, and MRSA. Will start him on Doxycycline, Levaquin and Augmentin and a a probiotic. Wound care - Dakin's moistened gauze to the left abdominal wound daily. Continue Collagen hydrogel covered by gauze daily to right lower abdomen. Patient's wound cultures collected on 01/05/2020 were positive for 2+ bacillus species, not anthracis. This is likely a contaminant and we will not initiate treatment at this time due to good response with antifungal treatment. He finished Zosyn for cultures on 11/03/19 that showed Enterobacter cloacae, Enterococcus faecalis, and Proteus mirabilis. His Prealbumin from 11/03/19 was 14.9. Encourage nutritional supplementation with protein to help the healing process. He has persistent dependent edema left abdominal wall aspect of his panniculus. Will schedule further excisional debridement and abdominal panniculuectomy next month. Patient was informed of the risks and complications of the procedure including alternatives to surgery. These were discussed with him personally. He voices understanding and wishes to proceed. Followup 2 weeks.
--- NOTE | 2020-05-03 21:25 | PN.PCM_ITS ---
(1) Ulcer of abdomen wall with fat layer exposed Status: Chronic Code(s): L98.492 - Non-pressure chronic ulcer of skin of other sites with fat layer exposed (2) Morbid obesity Status: Chronic Code(s): E66.01 - Morbid (severe) obesity due to excess calor ies (3) Lymphedema Status: Chronic Code(s): I89.0 - Lymphedema, not elsewhere classified Comment: painful lymphedema lower abdominal wall (4) Intertrigo Status: Chronic Code(s): L30.4 - Erythema intertrigo Comment: abdominal wall skin crease intertrigo (5) Abdominal panniculus, symptomatic Status: Chronic Code(s): E65 - Localized adiposity Type of Wound Date of Service: 05/03/20 Chief Complaint: Nonhealing ulcer right abdominal wall. History of Wound: Surgery 03/17/20 - 1. Surgical preparation left abdominal wall with excisional debridement skin, subcutaneous tissue, and fascia for necrotizing soft tissue infection (576 cm2). 2. Abdominal panniculectomy. Surgical cultures were negative for growth. He was admitted on 03/16/20 for sepsis and cellulitis of the left abdominal wall. He was discharged on 03/23/20 to [facility]. He was not discharged with any antibiotics. He was seen in the ED on 03/31/20 for wound infection, issues with his wound VAC. Wound cultures were drawn and he was sent back to [facility] on Batrim DS and Keflex. Wound culture from 03/31/20 was positive for Klebsiella pneumoniae, Proteus mirabilis, and MRSA. Will start him on Doxycycline, Levaquin and Augmentin and a a probiotic. Wound care- he was doing Dakin's after his issues with the wound VAC. He has been back on the wound VAC and doing well with it. Surgery 10/21/19 - 1. Surgical preparation right abdominal wall with excisional debridement skin, subcutaneous tissue, and fascia necrotizing soft tissue infection (731 cm2). 2. Abdominal panniculectomy. Operative cultures - negative. He was discharged on Cefadroxil and finished them. Patient was having with issues with copious amounts of drainage and difficulty dealing with the wound at home. He was admitted on 11/03/19. Wound cultures from 11/03/19 were positive for Enterobacter cloacae, Enterococcus falcalis and Proteus mirabilis. He was placed on IV Zosyn and Vancomycin. He was discharged on 11/05/19 to [facility] and continued Zosyn through a PICC line and has finished them. The PICC line was pulled. Prealbumin from 11/03/19 was 14.9. Encourage nutritional supplementation with protein to help the healing process. Today he denies fevers and states his appetite is ok. He states he is going home today with home health and home health aids to assist him. Progress of Wound: Left abdominal ulcer is improved. - Physical Exam Vital Signs Temp Pulse Resp BP 97.8 F 82 20 H 122/72 H 05/03/20 09:34 05/03/20 09:34 04/26/20 00:17 05/03/20 09:34 General: Alert, Oriented x3, Cooperative HEENT: Atraumatic Oral: Moist Mucosa Lungs: Normal air movement Cardiovascular: Regular rate Abdomen: Obese Extremities: Capillary Refill Less than 3 Seconds, Edema Skin: Ulcer/ Wound - Lower left abdominal ulcer is beefy pink. Good granulation tissue present. Musculoskeletal: Tenderness Neurological: Cranial nerves II-XII grossly intact Psych/Mental Status: Normal Affect, Appropriate Debridement Note Post-Debridement Measurements/Treatment WC - Nurse 2 - General Ulcer CM Notes Start: 05/03/20 09:34 Freq: Status: Active Protocol: Activity Type Activity Date Activity User E-Sign Co-Sign Detail Recorded Client Recorded Date Recorded By Document 05/03/20 10:18 NED [id number] 05/03/20 10:19 NED 05/03/20 10:18 Wound Center Nurse 2 #1 lower abd post op -Time 10:18 -Correct Patient Yes -Correct Side, Site, Position Yes -Correct Procedure Yes -Procedure Performed Yes -Type of Procedure Debridement -Clinical Debridement Subcutaneous -Tissue Removed Subcutaneous -Post Debridement (cm) - Length 7.8 -Post Debridement (cm) - Width 30 -Post Debridement (cm) - Depth 14 -Total Square (Post) (cm) 234.0 -Area of Debridement (cm) - Length 7.8 -Area of Debridement (cm) - Width 30 -Total Square (Area) (cm) 234.0 -Tunneling No -Undermining/Tunneling No -Circular Undermining No -Wound/Ulcer Outcome Not Healed -Ulcer Cleansing Rinsed/ Irrigated with Saline -Foul Odor after Cleansing No -Bioengineered Tissue No -Bleeding Controlled with Pressure -Offloading No -Treatment Response Procedure Tolerated Well -Debridement - Subq, 1st 20sq cm Yes -Debridement, SubQ, ea addt'l 20sq cm 11 or part thereof Pain Scale: 0-10 Numeric Is Patient Pain Free? Yes - Nurse 3 - General Ulcer D/C NN Start: 05/03/20 09:34 Freq: Status: Active Protocol: Activity Type Activity Date Activity User E-Sign Co-Sign Detail Recorded Client Recorded Date Recorded By Document 05/03/20 10:[address] [facility] [id number] 05/03/20 10:[address] [facility] 05/03/20 10:39 Wound Care Nurse 3 #1 lower abd post op -Ulcer Cleansing Rinsed/ Irrigated with Saline -Foul Odor after Cleansing No -Primary Dressing Applied Other -Other Dressing moist to dry -Primary Dressing Covered/Secured with Secured with Tape,Other -Other Covering abd Treatment Response Procedure Tolerated Well Pain Scale: 0-10 Numeric Is Patient Pain Free? Yes - Visit Discharge Discharge Condition Stable Ambulatory Status Wheelchair Transportation [facility] Type Home Health Wound debrided: Lower left abdominal ulcer Laterality: Left Type of Debridement: Excisional debridement Depth: Down to and including healthy tissue, in the subcutaneous layer, to muscle Percentage of wound debrided: 100 Instrument Used: 7mm curette Tissue Removed: Subcutaneous tissue and slough Severity: Fat Layer Exposed Amount of bleeding with debridement: Mild Bleeding Controlled with: Pressure Patient tolerated procedure well Assessment/Plan Active Problems (Last Updated 03/16/20 @ 00:[address] Nahun Ojeda MD) Ulcer of abdomen wall with fat layer exposed (Chronic) Morbid obesity (Chronic) Lymphedema (Chronic) painful lymphedema lower abdominal wall Intertrigo (Chronic) abdominal wall skin crease intertrigo Abdominal panniculus, symptomatic (Chronic) Assessment: 1. Massive abdominal panniculus with panniculitis. 2. Necrotizing soft tissue infection. 3. Nonhealing ulcer right abdominal wall. 4. Recent weight loss. 5. Abdominal wall skin crease intertrigo. 6. Painful lymphedema lower abdominal wall. 7. Lumbar back pain. 8. History of laparoscopic ventral hernia repair with mesh. 9. History of DVT. 10. s/p surgical preparation right abdominal wall with excisional debridement skin, subcutaneous tissue, and fascia necrotizing soft tissue infection (731 cm2) and abdominal panniculectomy. Plan: Surgery 03/17/20 - 1. Surgical preparation left abdominal wall with excisional debridement skin, subcutaneous tissue, and fascia for necrotizing soft tissue infection (576 cm2). 2. Abdominal panniculectomy. Surgical cultures were negative for growth. He was admitted on 03/16/20 for sepsis and cellulitis of the left abdominal wall. He was discharged on 03/23/20 to [facility]. He was not discharged with any antibiotics. His Prealbumin 8.2 on 03/18/20. Will consult a dietitian at [facility] to increased protein. Encourage nutritional supplementation with protein to help the healing process. He was seen in the ED on 03/31/20 for wound infection, issues with his wound VAC. Wound cultures were drawn and he was sent back to [facility] on Batrim DS and Keflex. Wound culture from 03/31/20 was positive for Klebsiella pneumoniae, Proteus mirabilis, and MRSA. Will start him on Doxycycline, Lev aquin and Augmentin and a a probiotic. Wound care - Wound VAC- We will place Dakin's today because the fpc did not send the wound VAC with him. He states he is going home today, due to issues with his insurance. He states he will have home health to help with his wound VAC dressings and a home health aid daily to help with personal hygeine. We will have him come back in one week if he is able to arrange transportation, to make sure he is doing well with the transition to home. Followup 1 week. [id number]: [id number] Global Visit
[2020-05-17 10:23] VITALS: BP 105/52; PULSE 82; RESP 18; TEMP 36.2; BMI 67.1
--- NOTE | 2020-05-17 13:03 | PN.PCM_ITS ---
(1) Ulcer of abdomen wall with fat layer exposed Status: Chronic Code(s): L98.492 - Non-pressure chronic ulcer of skin of other sites with fat layer exposed (2) Morbid obesity Status: Chronic Code(s): E66.01 - Morbid (severe) obesity due to excess calor ies (3) Lymphedema Status: Chronic Code(s): I89.0 - Lymphedema, not elsewhere classified Comment: painful lymphedema lower abdominal wall (4) Intertrigo Status: Chronic Code(s): L30.4 - Erythema intertrigo Comment: abdominal wall skin crease intertrigo (5) Abdominal panniculus, symptomatic Status: Chronic Code(s): E65 - Localized adiposity Type of Wound Date of Service: 05/17/20 Chief Complaint: Nonhealing ulcer right abdominal wall. History of Wound: Surgery 03/17/20 - 1. Surgical preparation left abdominal wall with excisional debridement skin, subcutaneous tissue, and fascia for necrotizing soft tissue infection (576 cm2). 2. Abdominal panniculectomy. Surgical cultures were negative for growth. He was admitted on 03/16/20 for sepsis and cellulitis of the left abdominal wall. He was discharged on 03/23/20 to [facility]. He was not discharged with any antibiotics. He was seen in the ED on 03/31/20 for wound infection, issues with his wound VAC. Wound cultures were drawn and he was sent back to [facility] on Batrim DS and Keflex. Wound culture from 03/31/20 was positive for Klebsiella pneumoniae, Proteus mirabilis, and MRSA. Will start him on Doxycycline, Levaquin and Augmentin and a a probiotic. Wound care- he was doing Dakin's after his issues with the wound VAC. He has been back on the wound VAC and doing well with it. Surgery 10/21/19 - 1. Surgical preparation right abdominal wall with excisional debridement skin, subcutaneous tissue, and fascia necrotizing soft tissue infection (731 cm2). 2. Abdominal panniculectomy. Operative cultures - negative. He was discharged on Cefadroxil and finished them. Patient was having with issues with copious amounts of drainage and difficulty dealing with the wound at home. He was admitted on 11/03/19. Wound cultures from 11/03/19 were positive for Enterobacter cloacae, Enterococcus falcalis and Proteus mirabilis. He was placed on IV Zosyn and Vancomycin. He was discharged on 11/05/19 to [facility] [place] and continued Zosyn through a PICC line and has finished them. The PICC line was pulled. Prealbumin from 11/03/19 was 14.9. Encourage nutritional supplementation with protein to help the healing process. Today he denies fevers and states his appetite is ok. He is back at [facility] [place] because he was not able to have the assistance that he needed at home. Progress of Wound: Left abdominal ulcer is improved. - Physical Exam Vital Signs Temp Pulse Resp BP 97.1 F L 82 18 105/52 L 05/17/20 10:23 05/17/20 10:23 05/17/20 10:23 05/17/20 10:23 General: Alert, Oriented x3, Cooperative HEENT: Atraumatic Oral: Moist Mucosa Lungs: Normal air movement Cardiovascular: Regular rate Abdomen: Obese Extremities: Capillary Refill Less than 3 Seconds Skin: Ulcer/ Wound - Left lower abdominal ulcer is beefy pink. Julia wound looks good. Wound Measurements and Assessment WC - Nurse 1 - General Ulcer Measurement Start: 05/03/20 09:34 Freq: Status: Active Protocol: Activity Type Activity Date Activity User E-Sign Co-Sign Detail Recorded Client Recorded Date Recorded By Document 05/17/20 10:23 [facility] [id number] 05/17/20 10:34 [facility] 05/17/20 10:23 Wound Center Nurse 1 [Ulcer Assessment] #1 lower abd post op -Combined with other wound No -Current Size (cm) - Length 5 -Current Size (cm) - Width 27.5 -Current Size (cm) - Depth 11.6 -Total Square Cm 137.5 -Photo Taken No -Epithelialization Small 1-33% -Tunneling No -Undermining/Tunneling No -Circular Undermining No -Exudate Amt Large -Exudate Type Serosanguineous -Wound Margin Distinct, Outline Attached -Granulation Amt Large (67-100%) -Granulation Quality Red -Slough/Fibrin Yes -Necrosis Amt Small (1-33%) -Necrotic Tissue Type Adherent Slough -Texture (Julia-wound Skin Appearance) Assessed, Scarring -Moisture (Julia-wound Skin Appearance Assessed ) -Color (Julia-wound Skin Appearance) Assessed -Temperature (Julia-wound Skin No Abnormality Appearance) (Pt Warm) -Tenderness on Palpation (Julia-wound No Skin Appearance) -Ulcer Cleansing SOAPY WATER -Foul Odor after Cleansing No -Anesthetic Used 4% Lidocaine Solution SHALINI - Nurse 2 - General Ulcer CM Notes Start: 05/03/20 09:34 Freq: Status: Active Protocol: Activity Type Activity Date Activity User E-Sign Co-Sign Detail Recorded Client Recorded Date Recorded By Document 05/17/20 10:42 NED [id number] 05/17/20 10:48 NED 05/17/20 10:42 Wound Center Nurse 2 [Procedure/Treatment] -Time 10:43 -Correct Patient Yes -Correct Side, Site, Position Yes -Correct Procedure Yes -Procedure Performed Yes -Type of Procedure Debridement -Clinical Debridement Subcutaneous -Tissue Removed Subcutaneous -Post Debridement (cm) - Length 6 -Post Debridement (cm) - Width 27 -Post Debridement (cm) - Depth 12.9 -Total Square (Post) (cm) 162 -Area of Debridement (cm) - Length 6 -Area of Debridement (cm) - Width 27 -Total Square (Area) (cm) 162 -Tunneling No -Undermining/Tunneling No -Circular Undermining No -Wound/Ulcer Outcome Not Healed -Ulcer Cleansing Rinsed/ Irrigated with Saline -Foul Odor after Cleansing No -Bioengineered Tissue No -Bleeding Controlled with Pressure -Offloading No -Treatment Response Procedure Tolerated Well -Debridement - Subq, 1st 20sq cm Yes -Debridement, SubQ, ea addt'l 20sq cm 8 or part thereof [See Physician Procedure note for Specifics] Pain Scale: 0-10 Numeric [Pain] -Is Patient Pain Free? Yes SHALINI - Nurse 3 - General Ulcer D/C NN Start: 05/03/20 09:34 Freq: Status: Active Protocol: Activity Type Activity Date Activity User E-Sign Co-Sign Detail Recorded Client Recorded Date Recorded By Document 05/17/20 10:56 DL [id number] 05/17/20 10:58 DL 05/17/20 10:56 Wound Care Nurse 3 [Wound Dressing] #1 lower abd post op -Ulcer Cleansing Wound Cleanser -Foul Odor after Cleansing No -Negative Pressure Wound Therapy Continue -Setting (mmHg) 150 -Negative Pressure is Continuous -Other Dressing wet to dry today in clinic -Primary Dressing Covered/Secured Dry Gauze with -NPWT Application Charge ($) NPWT </= 50 sq cm [Post Procedure Tolerated] -Treatment Response Procedure Tolerated Well Pain Scale: 0-10 Numeric [Pain] -Is Patient Pain Free? Yes - Visit Discharge [Visit Discharge Information] -Discharge Condition Stable -Ambulatory Status Stretcher -Transportation Ambulance -Notes: Resume Vac at [facility] Musculoskeletal: No Tenderness to Palpation of Joints or Extremities Neurological: Cranial nerves II-XII grossly intact Psych/Mental Status: Normal Affect, Appropriate Debridement Note Post-Debridement Measurements/Treatment - Nurse 2 - General Ulcer CM Notes Start: 05/03/20 09:34 Freq: Status: Active Protocol: Activity Type Activity Date Activity User E-Sign Co-Sign Detail Recorded Client Recorded Date Recorded By Document 05/03/20 10:18 [id number] 05/03/20 10:19 Document 05/17/20 10:42 [id number] 05/17/20 10:48 05/03/20 05/17/20 10:18 10:42 Wound Center Nurse 2 #1 lower abd post op -Time 10:18 10:43 -Correct Patient Yes Yes -Correct Side, Site, Position Yes Yes -Correct Procedure Yes Yes -Procedure Performed Yes Yes -Type of Procedure Debridement Debridement -Clinical Debridement Subcutaneous Subcutaneous -Tissue Removed Subcutaneous Subcutaneous -Post Debridement (cm) - Length 7.8 6 -Post Debridement (cm) - Width 30 27 -Post Debridement (cm) - Depth 14 12.9 -Total Square (Post) (cm) 234.0 162 -Area of Debridement (cm) - Length 7.8 6 -Area of Debridement (cm) - Width 30 27 -Total Square (Area) (cm) 234.0 162 -Tunneling No No -Undermining/Tunneling No No -Circular Undermining No No -Wound/Ulcer Outcome Not Healed Not Healed -Ulcer Cleansing Rinsed/ Rinsed/ Irrigated with Irrigated with Saline Saline -Foul Odor after Cleansing No No -Bioengineered Tissue No No -Bleeding Controlled with Pressure Pressure -Offloading No No -Treatment Response Procedure Procedure Tolerated Well Tolerated Well -Debridement - Subq, 1st 20sq cm Yes Yes -Debridement, SubQ, ea addt'l 20sq cm 11 8 or part thereof Pain Scale: 0-10 Numeric Is Patient Pain Free? Yes Yes - Nurse 3 - General Ulcer D/C NN Start: 05/03/20 09:34 Freq: Status: Active Protocol: Activity Type Activity Date Activity User E-Sign Co-Sign Detail Recorded Client Recorded Date Recorded By Document 05/03/20 10:39 [facility] [id number] 05/03/20 10:40 BM Document 05/17/20 10:56 DL [id number] 05/17/20 10:58 DL 05/03/20 05/17/20 10:39 10:56 Wound Care Nurse 3 #1 lower abd post op -Ulcer Cleansing Rinsed/ Wound Cleanser Irrigated with Saline -Foul Odor after Cleansing No No -Negative Pressure Wound Therapy Continue -Setting (mmHg) 150 -Negative Pressure is Continuous -Primary Dressing Applied Other -Other Dressing moist to dry wet to dry today in clinic -Primary Dressing Covered/Secured with Secured with Dry Gauze Tape,Other -Other Covering abd -NPWT Application Charge ($) NPWT </= 50 sq cm Treatment Response Procedure Procedure Tolerated Well Tolerated Well Pain Scale: 0-10 Numeric Is Patient Pain Free? Yes Yes WC - Visit Discharge Discharge Condition Stable Stable Ambulatory Status Wheelchair Stretcher Transportation [facility] Notes: Resume Vac at [facility] Facility Type Home Health Wound debrided: Lower abdominal ulcer Laterality: Left Type of Debridement: Excisional debridement Anesthesia Used: 5% Lidocaine Gel Depth: Down to and including healthy tissue, in the subcutaneous layer, to muscle Percentage of wound debrided: 100 Instrument Used: 7mm curette Tissue Removed: Subcutaneous tissue and slough Severity: Fat Layer Exposed Amount of bleeding with debridement: Moderate Bleeding Controlled with: Pressure, Compression and gauze Patient tolerated procedure well Assessment/Plan Active Problems (Last Updated 03/16/20 @ 00:[address] Nahun Ojeda MD) Ulcer of abdomen wall with fat layer exposed (Chronic) Morbid obesity (Chronic) Lymphedema (Chronic) painful lymphedema lower abdominal wall Intertrigo (Chronic) abdominal wall skin crease intertrigo Abdominal panniculus, symptomatic (Chronic) Assessment: 1. Massive abdominal panniculus with panniculitis. 2. Necrotizing soft tissue infection. 3. Nonhealing ulcer right abdominal wall. 4. Recent weight loss. 5. Abdominal wall skin crease intertrigo. 6. Painful lymphedema lower abdominal wall. 7. Lumbar back pain. 8. History of laparoscopic ventral hernia repair with mesh. 9. History of DVT. 10. s/p surgical preparation right abdominal wall with excisional debridement skin, subcutaneous tissue, and fascia necrotizing soft tissue infection (731 cm2) and abdominal panniculectomy. Plan: Surgery 03/17/20 - 1. Surgical preparation left abdominal wall with excis ional debridement skin, subcutaneous tissue, and fascia for necrotizing soft tissue infection (576 cm2). 2. Abdominal panniculectomy. Surgical cultures were negative for growth. He was admitted on 03/16/20 for sepsis and cellulitis of the left abdominal wall. He was discharged on 03/23/20 to [facility]. He was not discharged with any antibiotics. His Prealbumin 8.2 on 03/18/20. Will consult a dietitian at [facility] [place] to increased protein. Encourage nutritional supplementation with protein to help the healing process. He was seen in the ED on 03/31/20 for wound infection, issues with his wound VAC. Wound cultures were drawn and he was sent back to [facility] on Batrim DS and Keflex. Wound culture from 03/31/20 was positive for Klebsiella pneumoniae, Proteus mirabilis, and MRSA. Will start him on Doxycycline, Levaquin and Augmentin and a a probiotic. Wound care - Wound VAC. The care home has a wound nurse who changes the VAC 3 times per week. He is back at [facility]. He states there was a big misunderstanding and he would not be able to have the help that he needed to be at home. Followup 2 weeks. [id number]: [id number] Global Visit
--- NOTE | 2020-05-19 16:33 | WC ---
Spoke to DAX about how the patient is to return his VAC from home now that he is in the [place]. I called Liliana and told him per DAX that his neighbor can open the big box and pull out the VAC case and inside the case take out the blue bag that has a return paid label on it. Pt 's neighbor needs to place the black VAC box inside the blue bag and return it to the local [employer] store. Patient verbalizes understanding.
== END 2020-05-23 23:59 ==
LOC: WC 10:30
PROVIDERS: PCP Family Medicine Geriatric Medicine; Referring Provider Surgery; Visit Provider Surgery
DX: L98.492 Non-pressure chronic ulcer of skin of other sites with fat layer exposed (principal); I89.0 Lymphedema, not elsewhere classified; L30.4 Erythema intertrigo; Z86.718 Personal history of other venous thrombosis and embolism; E66.01 Morbid (severe) obesity due to excess calories
CPT/HCPCS: 11042; 11045; 97605

== ENCOUNTER 2020-05-26 16:48 | Inpatient (IN) | payer MEDICARE, MEDICAID, SELFPAY ==
[2020-05-26 16:50] VITALS: BP 99/72; PULSE 83; RESP 22; TEMP 36.1; O2SAT 93; BMI 77.2
--- NOTE | 2020-05-26 16:59 | EKG12_ITS ---
Test Reason : SOB Blood Pressure : / mmHG Vent. Rate : 099 BPM Atrial Rate : 105 BPM P-R Int : 000 ms QRS Dur : 108 ms QT Int : 192 ms P-R-T Axes : 000 000 265 degrees QTc Int : 246 ms Low voltage, probably Atrial Flutter Indeterminate axis Pulmonary disease pattern Marked ST abnormality, possible inferior subendocardial injury Abnormal ECG Confirmed by HARRISON KINNEY, MODESTA ([id number]), state editor EDVIN VAN ([id number]) on 06/01/2020 12:19:41 PM Referred By: JOE Confirmed By:MODESTA TERRY MD
--- NOTE | 2020-05-26 17:00 | ED.DCSUM_ITS ---
History of Present Illness Chief Complaint: Abn Labs Narrative: This patient is a 60-year-old male who was sent in due to abnormal labs. He is at a nursing facility currently for an abdominal wall cellulitis, he does have a wound VAC. He has had progressive worsening shortness of breath for the past 3 days. Normally he would use BiPAP at night but he has been needing to use this some during the day. He is uncertain about increased leg swelling but is unable to see his legs really. No fevers that he is aware of although did feel hot earlier today. He denies vomiting or diarrhea. No chest pain. He did have outpatient lab work today which showed elevation of his BNP and he was sent in for acute exacerbation of congestive heart failure. Past Medical History - Allergies and Home Meds Allergies/Adverse Reactions: Allergies latex Allergy (Verified 05/26/20 16:49) Rash warfarin sodium [From Coumadin] Adverse Reaction (Verified 05/26/20 16:49) Other caused 2 holes in lungs and chest, advised to never take again Primary Care Physician: Esteban Tim Chi, MD [Primary Care Provider] - Past Medical History: - - COPD, congestive heart failure, hyperlipidemia, obstructive sleep apnea, hypothyroidism, morbid obesity, hypertension, [id number] Surgical History: cholecystectomy, herniorrhaphy, - - Cardiac ablation x 2, Defib placement, Cholecystectomy, LLE surgery s/p trauma w/ hardware removal later, gastric sleeve surgery Smoking Status: Never smoker - Family History Maternal Family History: Family History (Last Reviewed 07/19/19 @ 22:[address] Anthony Pisano MD) Sister Arthritis Brother Psychiatric care Family History: Reports: Heart Disease, Hypertension Paternal Family History: Family History (Last Reviewed 07/19/19 @ 22:[address] Anthony Pisano MD) Sister Arthritis Brother Psychiatric care Family History: Reports: Heart Disease, Hypertension Review of Systems All systems negative except as indicated General: Reports: Sweats. Denies: Fever Eyes: Denies: Visual changes - bilaterally ENT: Denies: Bilateral ear pain Cardiovascular: Denies: Chest pain Respiratory: Reports: Dyspnea, Cough. Denies: Sputum Gastrointestinal: Reports: Abdominal pain. Denies: Nausea, Vomiting, Diarrhea Musculoskeletal: Reports: Swelling. Denies: Myalgias, Arthralgias, Extremity Pain Skin: Reports: Rash Neurological: Denies: Headache Hematologic: Denies: Easy bruising Allergy: Denies: Uticaria Physical Exam Vital Signs/Narrative: Vital Signs Temp Pulse Resp BP Pulse Ox 05/26/20 16:50 97.0 F L 83 22 H 99/72 93 Inital Vital Signs reviewed: Yes General: Obese Head: Normocephalic Eyes: EOMI ENT: Moist mucous membranes Neck: Supple Cardiovascular: Regular rate, Regular rhythm Respiratory: No distress, - - I do not appreciate rales rhonchi or wheezing body habitus limits auscultation of the lungs Abdomen: Soft, - - Wound VAC noted to the left lower abdomen, there is some surrounding erythema Extremities: Nontender, Edema Skin: Normal color Neurological: Alert Psychological: Normal affect Diagnostic/Tx/Re-eval Impressions Chest X-Ray 05/26/20 17:08 IMPRESSION: Poor inspiration with some bibasilar atelectasis. Electronically Signed: Filipe Pizano MD at 17:35 EST Tel , Service support , 05/26/20 17:08 Chest 1 View (Portable) [RAD] Stat Laboratory Results 05/26/20 05/26/20 05/26/20 17:00 17:00 17:00 WBC 8.7 RBC 3.24 L Hgb 9.1 L Hct 31.4 L MCV 96.9 H MCH 28.1 MCHC 29.0 L RDW Std Deviation 66.6 H RDW Coeff of Florina 18.7 H Plt Count 292 MPV 10.9 Immature Gran % (Auto) 0.300 Neut % (Auto) 75.2 H Lymph % (Auto) 8.4 L Phelps % (Auto) 14.2 H Eos % (Auto) 1.4 Baso % (Auto) 0.5 Absolute Neuts (auto) 6.5 Absolute Lymphs (auto) 0.73 L Nucleated RBC % 0 Differential Comment SCANNED Anisocytosis 1+ Sodium 138 Potassium 4.3 Chloride 106 Carbon Dioxide 27.0 Anion Gap 5 BUN 31 H Creatinine 0.98 Estim Creat Clear Calc 72.34 Est GFR (MDRD) Af Amer 100 Est GFR (MDRD) Non-Af 83 BUN/Creatinine Ratio 31.7 H Glucose 104 Calcium 8.7 Troponin I < 0.015 B-Natriuretic Peptide 1080.0 H - Medical Decision Making Labs notable for BNP of 1080. EKG shows low voltages due to body habitus but appears to be sinus rhythm. No STEMI. Chest x-ray shows bibasilar atelectasis. Patient was given IV Lasix. Patient will be discussed with hospitalist and admitted. ED Disposition - Plan for ED Patient: Disposition: Acute Care Hospital [facility] Diagnosis: CHF exacerbation Referrals: Esteban Tim Chi, MD [Primary Care Provider] -
[2020-05-26 17:02] VITALS: BP 96/72; PULSE 80; RESP 22; O2SAT 100
[2020-05-26 17:08] LABS: Absolute Lymphocyte Count 0.73 X10^3/uL (0.83-4.51); Absolute Neutrophil Count 6.5 X10^3/uL (2.0-7.7); Basophil# 0.04 X10^3/uL; Basophil% 0.5 % (0-1); Eosinophil# 0.12 X10^3/uL; Eosinophils% 1.4 % (0-5); Hematocrit 31.4 % (40-54); Hemoglobin 9.1 g/dL (13.0-16.5); Lymphocyte # 0.73 X10^3/ul (4.0); Lymphocyte % 8.4 % (19-41); Mean Corpuscular Hgb 28.1 pg (27.0-32.0); Mean Corpuscular Volume 96.9 fL (80-94); Mean Platelet Vol. 10.9 fl (6.2-12.0); Monocyte# 1.23 X10^3/uL; Monocyte% 14.2 % (0-10); NRBC Flagged by Analyzer 0 % (0-5); Neutrophil # 6.52 X10^3/uL (2.7-7.7); Neutrophil % 75.2 % (47-70); POSITIVE MORPHOLOGY YES; Platelet Count 292 K/mm3 (150-450); RBC Distribution Width CV 18.7 % (11.6-14.6); RBC Distribution Width SD 66.6 fl (35.1-43.9); Red Blood Count 3.24 M/mm3 (4.6-6.2); White Blood Count 8.7 K/mm3 (4.4-11.0)
--- NOTE | 2020-05-26 17:08 | RAD_ITS ---
STUDY: X-RAY CHEST REASON FOR EXAM: Male, 60 years old. CHF TECHNIQUE: Single AP portable view of the chest. COMPARISON: 03/17/2020 FINDINGS: Left subclavian single lead AICD which is unchanged. Poor inspiration with some bibasilar atelectasis. There is no demonstrated pleural abnormality. There is moderate cardiac enlargement. Normal mediastinum and oumou. Normal visualized pulmonary arteries. Normal visualized aortic arch and descending thoracic aorta. Normal visualized thoracic spine. Normal visualized ribs, clavicles, and shoulders. There is no demonstrated abnormality of the visualized soft tissue structures of the upper abdomen. RAD/Chest 1 View (Portable) IMPRESSION: Poor inspiration with some bibasilar atelectasis. Electronically Signed: Filipe Pizano MD at 17:35 EST Tel , Service support ,
[2020-05-26 17:28] LABS: Anion Gap 5 (5-15); BUN 31 mg/dL (7-18); BUN/Creat Ratio 31.7 RATIO (10-20); Calcium,Total 8.7 mg/dL (8.5-10.1); Chloride 106 mmol/L (98-107); Creatinine, Serum 0.98 mg/dL (0.70-1.30); EST Glomerular Filtration Rate 83 mL/min (>60); Est Glom Filt Rate - Afr Amer 100 mL/min (>60); Estimated Creatinine Clearance 72.34 ml/min; Glucose 104 mg/dL (74-106); Potassium 4.3 mmol/L (3.5-5.1); Sodium Level 138 mmol/L (136-145)
[2020-05-26 17:33] LABS: Differential Comment SCANNED; Differential Indicated SCAN CRITERIA MET
[2020-05-26 17:34] LABS: Anisocytosis 1+
[2020-05-26 18:29] VITALS: BP 108/76; PULSE 78; RESP 16; TEMP 36.2; O2SAT 95
[2020-05-26] MEDS: Furosemide 40 MG/4 ML Vial IV (18:35)
--- NOTE | 2020-05-26 18:45 | HP.PCM_ITS ---
<Concepcion Callejas - Last Filed: 05/26/20 19:13> Problem List (1) CHF exacerbation Status: Acute (2) TEX (obstructive sleep apnea) Status: Chronic (3) Morbid obesity Status: Chronic (4) Open wound, abdominal wall, lateral Status: Chronic (5) DDD (degenerative disc disease), lumbosacral Status: Chronic (6) COPD (chronic obstructive pulmonary disease) Status: Chronic (7) Anxiety and depression Status: Chronic (8) Hyperlipidemia Status: Chronic Qualifiers: Hyperlipidemia type: unspecified Qualified Code(s): E78.5 - Hyperlipidemia, unspecified (9) Benign essential hypertension Status: Chronic (10) History of radiofrequency ablation (RFA) procedure for cardiac arrhythmia Status: Chronic Comment: 2007 @ [facility] per Dr. Lange, 2009 @ [facility] for WPW with success. (11) Presence of implantable cardioverter-defibrillator (ICD) Status: Chronic History of Present Illness Date of Admission: 05/26/20 Chief Complaint: Shortness of breath The patient is a 60 year old M that presents today with shortness of breath and increased use of BiPAP at residential. Patient reports he has been increasingly short of breath over the past 2 days and needing his BiPAP more frequently. Patient also reports a dry nonproductive cough that began at the same time of his increased shortness of breath. Patient denies fever chills, fatigue, chest pain, nausea, vomiting. Past Medical History Past Medical History (Chronic Problems): Chronic Problems (Last Reviewed 05/26/20 @ 18:52 by Concepcion Callejas, SOILS ANALYST-C) Ulcer of abdomen wall with fat layer exposed (Chronic) Morbid obesity (Chronic) Open wound, abdominal wall, lateral (Chronic) Lumbar back pain (Chronic) from weight of massive abdominal panniculus Ventral hernia (Chronic) laparoscopic repair 2 years ago with mesh Intertrigo (Chronic) abdominal wall skin crease intertrigo Recent weight loss (Chronic) about 100 lbs Panniculitis (Chronic) Abdominal panniculus, symptomatic (Chronic) Presence of implantable cardioverter-defibrillator (ICD) (Chronic) History of radiofrequency ablation (RFA) procedure for cardiac arrhythmia (Chronic) 2007 @ [facility] per Dr. Lange, 2009 @ [facility] for WPW with success. 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) Rotator cuff tear (Chronic) COPD (chronic obstructive pulmonary disease) (Chronic) Anxiety and depression (Chronic) Diastolic heart failure (Chronic) TEX (obstructive sleep apnea) (Chronic) Hyperlipidemia (Chronic) Benign essential hypertension (Chronic) Rheumatoid arthritis (Chronic) dilated right ventricle (Chronic) Cardiomyopathy (Chronic) Super obesity (Chronic) Atrial fibrillation (Chronic) Medical History: Medical History (Last Reviewed 05/26/20 @ 18:52 by Concepcion Callejas, SOILS ANALYST-C) Lumbar back pain (Chronic) M54.5 from weight of massive abdominal panniculus Ventral hernia (Chronic) K43.9 laparoscopic repair 2 years ago with mesh Intertrigo (Chronic) L30.4 abdominal wall skin crease intertrigo Recent weight loss (Chronic) R63.4 about 100 lbs Abdominal panniculus, symptomatic (Chronic) E65 COPD (chronic obstructive pulmonary disease) (Chronic) J44.9 Diastolic heart failure (Chronic) I50.30 TEX (obstructive sleep apnea) (Chronic) G47.33 Hyperlipidemia (Chronic) E78.5 Benign essential hypertension (Chronic) I10 Rheumatoid arthritis (Chronic) M06.9 Cardiomyopathy (Chronic) I42.9 Super obesity (Chronic) E66.9 Atrial fibrillation (Chronic) I48.91 Arthritis M19.90 Cyst of breast N60.09 History of ulceration Z87.898 Osteoarthritis M19.90 Pancreatitis K85.90 Usnpe-Oznxwrbic-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 History of DVT (deep vein thrombosis) (Inactive) Z86.718 Allergies latex Allergy (Verified 05/26/20 16:49) Rash warfarin sodium [From Coumadin] Adverse Reaction (Verified 05/26/20 16:49) Other caused 2 holes in lungs and chest, advised to never take again Home Medications: Ambulatory Orders Medication Instructions Recorded Bupropion HCl 100 mg PO DAILY 05/02/14 Nitroglycerin (INPATIENT USE) 0.4 mg SUBLINGUAL Q5M PRN 07/17/14 [Nitrostat] Cyanocobalamin (Vitamin B-12) 1,000 mcg PO DAILY 05/08/18 [Vitamin B-12] Multivitamin with Minerals 2 tab PO DAILY 05/08/18 [Multiple Vitamin] levothyroxine 25 mcg tablet 25 mcg PO DAILY 05/22/19 Pantoprazole Sodium [Protonix] 40 mg PO BID tab 11/23/19 Zolpidem Tartrate [Ambien] 10 mg PO QHS 03/16/20 Oxycodone HCl 5 mg PO Q6H PRN 03/31/20 Amiodarone HCl [Cordarone] 200 mg PO DAILY 05/26/20 Carvedilol 3.125 mg PO BID 05/26/20 Cholecalciferol (Vitamin D3) 3,000 unit PO DAILY 05/26/20 [Vitamin D3] Docusate Sodium [Colace] 100 mg PO BID 05/26/20 Furosemide [Lasix] 40 mg PO DAILY 05/26/20 Lactobacillus Rhamnosus GG 1 cap PO BID 05/26/20 [Culturelle] Sertraline HCl [Zoloft] 50 mg PO DAILY 05/26/20 Surgical History: Surgical History (Last Reviewed 05/26/20 @ 18:52 by SILVANO Noble) Presence of implantable cardioverter-defibrillator (ICD) (Chronic) Z95.810 History of radiofrequency ablation (RFA) procedure for cardiac arrhythmia (Chronic) Z98.890 2007 @ [facility] per Dr. Lange, 2009 @ [facility] for WPW with success. History of cardiac radiofrequency ablation Z98.890 [id number] History of cholecystectomy Z90.49 History of gastric surgery Z98.890 Surgical History: cholecystectomy, herniorrhaphy, - - Cardiac ablation x 2, Defib placement, Cholecystectomy, LLE surgery s/p trauma w/ hardware removal later, gastric sleeve surgery Psychiatric History: Anxiety, Depression Lives: [facility] Smoking Status: Never smoker Tobacco Use: Secondhand Alcohol: None Drugs: None - *Family History Maternal Family History: Family History (Last Reviewed 05/26/20 @ 18:52 by SILVANO Noble) Sister Arthritis Brother Psychiatric care History Items: Heart Disease, Hypertension Paternal Family History: Family History (Last Reviewed 05/26/20 @ 18:52 by SILVANO Noble) Sister Arthritis Brother Psychiatric care History Items: Heart Disease, Hypertension Review of Systems Constitutional: Reports: Weakness, Fatigue. Denies: Chills, Fever, Weight Change HEENT: Denies: Head Aches, Sinus Congestion, Sinus Drainage Cardiovascular: Denies: Chest Pain, Palpitations Respiratory: Reports: Cough - Dry nonproductive, Shortness of breath at rest, Shortness of breath upon exertion. Denies: Sputum production Gastrointestinal: Reports: Abdominal Pain - Abdominal wound with wound VAC present. Denies: Nausea, Vomiting Genitourinary: Denies: Dysuria Musculoskeletal: Denies: Joint Pain, Joint Tenderness Skin: Reports: Dryness - Lateral feet and legs, Wounds - Abdominal wound wound VAC present. Denies: Rash Neurological: Denies: Numbness, Tingling, Focal weakness Psychiatric: Reports: Anxiety, Depression. Denies: Homicidal Ideations, Suicidal Ideations Hematologic/ Lymphatic: Reports: Hx of blood clot. Denies: Easy Bruising, Easy Bleeding VTE Information - Inpt Only VTE Present on Admission: No VTE Mechan Device Prophylaxis: None VTE Pharm Prophylaxis ordered?: Yes Patient Problems: Active and Suspected Problems (Last Reviewed 05/26/20 @ 18:52 by Concepcion Callejas SOILS ANALYST-C) CHF exacerbation (Acute) - Physical Exam Vitals/I&O's: Vital Signs Temp Pulse Resp BP Pulse Ox 97.2 F L 78 16 108/76 95 05/26/20 18:29 05/26/20 18:29 05/26/20 18:29 05/26/20 18:29 05/26/20 18:29 Oxygen Flow Rate (L/min) 2 Oxygen Delivery Method Nasal Cannula Weight: 478 lb 9.977 oz Body Mass Index (BMI) 77.2 General: Alert, Oriented x3, Cooperative HEENT: Atraumatic, PERRLA, EOMI, Normocephalic Neck: Supple, No JVD, Negative Carotid Bruits Lungs: Clear to auscultation, Normal air movement, Diminished, Short of Breath Cardiovascular: Regular rate, Regular Rhythm, Normal S1, Normal S2, No murmurs Abdomen: Bowel Sounds Present, Soft, Non Tender, Obese Extremities: Capillary Refill Less than 3 Seconds, Diminished Peripheral Pulses, Edema - 2-3+ pitting bilateral lower extremities Skin: Ulcer/ Wound - Abdominal wound with wound VAC present, Excoriated - Groin Musculoskeletal: No Tenderness to Palpation of Joints or Extremities Neurological: Cranial nerves II-XII grossly intact Psych/Mental Status: Normal Affect, Appropriate Laboratory Results 05/26/20 17:00: WBC 8.7, RBC 3.24 L, Hgb 9.1 L, Hct 31.4 L, MCV 96.9 H, MCH 28.1, MCHC 29.0 L, RDW Std Deviation 66.6 H, RDW Coeff of Florina 18.7 H, Plt Count 292, MPV 10.9, Immature Gran % (Auto) 0.300, Neut % (Auto) 75.2 H, Lymph % (Auto) 8.4 L, [place] % (Auto) 14.2 H, Eos % (Auto) 1.4, Baso % (Auto) 0.5, Absolute Neuts (auto) 6.5, Absolute Lymphs (auto) 0.73 L, Nucleated RBC % 0, Differential Comment SCANNED, Anisocytosis 1+ 05/26/20 17:00: Sodium 138, Potassium 4.3, Chloride 106, Carbon Dioxide 27.0, Anion Gap 5, BUN 31 H, Creatinine 0.98, Estim Creat Clear Calc 72.34, Est GFR (MDRD) Af Amer 100, Est GFR (MDRD) Non-Af 83, BUN/Creatinine Ratio 31.7 H, Glucose 104, Calcium 8.7, Troponin I < 0.015 05/26/20 17:00: B-Natriuretic Peptide 1080.0 H Assessment/Plan All Active Problems (Last Reviewed 05/26/20 @ 18:52 by Concepcion Callejas, SOILS ANALYST-C) CHF exacerbation (Acute) Septic shock (Acute) Abdominal wall cellulitis (Acute) 1. Acute on chronic CHF exacerbation?BNP 1080, Chest x-ray report states poor inspiration with some bibasilar atelectasis. EKG performed in ER showed low voltage due to body habitus but appears to be in sinus rhythm. Will start 1500 mL fluid restriction and Lasix 40 mg IV twice daily. BiPAP at at bedtime and as needed. Will defer echo at this time due to body habitus. CBC and BMP in the morning. Trend cardiac enzymes. 2. Obstructive sleep apnea-BiPAP at at bedtime and as needed. 3. Morbid obesity?1800-calorie cardiac diet ordered. Consult dietitian. 4. Open wound to the lateral abdominal wall-wound VAC in place. Will consult wound nurse. 5. Anxiety and depression-continue home regimen of bupropion sertraline and Am melissa. 6. Benign hypertension-stable. We will continue home regimen of amiodarone, carvedilol. 7. Hyperlipidemia-we will obtain lipid panel in the morning. 8. COPD-stable. 9. Degenerative disc disease of the lumbar spine?continue meant of as needed oxycodone. DVT prophylaxis?subcutaneous Lovenox. This patient was seen by SILVANO Noble under the supervision of Dr. Arzola. <Cabrera Arzola - Last Filed: 05/26/20 19:30> History of Present Illness The patient is a 60 year old M presents with worsening shortness of breath. Is been ongoing for 3 days progressively getting worse. Patient requiring his BiPAP more frequently than at night. BNP was elevated. Chest x-ray was of low quality given patient's body habitus. Patient did receive IV furosemide in the emergency room. Currently stable on 2 L nasal cannula. [] Past Medical History Medical History: Medical History (Last Reviewed 05/26/20 @ 19:[address] Cabrera Arzola, DO) Lumbar back pain (Chronic) M54.5 from weight of massive abdominal panniculus Ventral hernia (Chronic) K43.9 laparoscopic repair 2 years ago with mesh Intertrigo (Chronic) L30.4 abdominal wall skin crease intertrigo Recent weight loss (Chronic) R63.4 about 100 lbs Abdominal panniculus, symptomatic (Chronic) E65 COPD (chronic obstructive pulmonary disease) (Chronic) J44.9 Diastolic heart failure (Chronic) I50.30 TEX (obstructive sleep apnea) (Chronic) G47.33 Hyperlipidemia (Chronic) E78.5 Benign essential hypertension (Chronic) I10 Rheumatoid arthritis (Chronic) M06.9 Cardiomyopathy (Chronic) I42.9 Super obesity (Chronic) E66.9 Atrial fibrillation (Chronic) I48.91 History of DVT (deep vein thrombosis) (Inactive) Z86.718 Arthritis M19.90 Cyst of breast N60.09 History of ulceration Z87.898 Osteoarthritis M19.90 Pancreatitis K85.90 Mnaqs-Jcaegosdm-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 Cabrera Arzola DO) Presence of implantable cardioverter-defibrillator (ICD) (Chronic) Z95.810 History of radiofrequency ablation (RFA) procedure for cardiac arrhythmia (Chronic) Z98.890 2007 @ [facility] per Dr. 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 History of cardiac radiofrequency ablation Z98.890 [id number] History of cholecystectomy Z90.49 History of gastric surgery Z98.890 Surgical History: cholecystectomy, herniorrhaphy, - Psychiatric History: Anxiety, Depression Lives: [facility] Smoking Status: Never smoker Tobacco Use: Secondhand Alcohol: None Drugs: None - *Family History Maternal Family History: Family History (Last Reviewed 05/26/20 @ 19:[address] Cabrera Arzola DO) Sister Arthritis Brother Psychiatric care Paternal Family History: Family History (Last Reviewed 05/26/20 @ 19:[address] Cabrera Arzola DO) Sister Arthritis Brother Psychiatric care Review of Systems Constitutional: Reports: Weakness, Fatigue. Denies: Chills, Fever, Weight Change HEENT: Denies: Head Aches, Sinus Congestion, Sinus Drainage Cardiovascular: Denies: Chest Pain, Palpitations Respiratory: Reports: Cough, Shortness of breath at rest, Shortness of breath upon exertion. Denies: Sputum production Gastrointestinal: Reports: Abdominal Pain. Denies: Nausea, Vomiting Genitourinary: Denies: Dysuria Musculoskeletal: Denies: Joint Pain, Joint Tenderness Skin: Reports: Dryness, Wounds. Denies: Rash Neurological: Denies: Focal weakness, Numbness, Tingling Psychiatric: Reports: Anxiety, Depression. Denies: Homicidal Ideations, Suicidal Ideations Hematologic/ Lymphatic: Reports: Hx of blood clot. Denies: Easy Bruising, Easy Bleeding VTE Information - Inpt Only VTE Present on Admission: No VTE Mechan Device Prophylaxis: None VTE Pharm Prophylaxis ordered?: Yes - Physical Exam Vitals/I&O's: Vital Signs Temp Pulse Resp BP Pulse Ox 36.2 C L 76 18 108/76 99 05/26/20 18:29 05/26/20 19:10 05/26/20 19:10 05/26/20 18:29 05/26/20 19:10 Oxygen Flow Rate (L/min) 2 Oxygen Delivery Method Nasal Cannula Weight: 217.1 kg Body Mass Index (BMI) 77.2 General: Alert, Cooperative HEENT: Atraumatic, Normocephalic Lungs: Clear to auscultation, Diminished, Short of Breath Cardiovascular: Regular rate, Regular Rhythm, Normal S1, Normal S2, No murmurs Abdomen: Bowel Sounds Present, Soft, Non Tender, Obese Extremities: Capillary Refill Less than 3 Seconds, Diminished Peripheral Pulses, Edema Skin: Ulcer/ Wound, Excoriated Neurological: Deep Tendon Reflexes 2+/4 and Symmetrical, - - No clonus Psych/Mental Status: Normal Affect, Appropriate Laboratory Results 05/26/20 17:00: WBC 8.7, RBC 3.24 L, Hgb 9.1 L, Hct 31.4 L, MCV 96.9 H, MCH 28.1, MCHC 29.0 L, RDW Std Deviation 66.6 H, RDW Coeff of Florina 18.7 H, Plt Count 292, MPV 10.9, Immature Gran % (Auto) 0.300, Neut % (Auto) 75.2 H, Lymph % (Auto) 8.4 L, [place] % (Auto) 14.2 H, Eos % (Auto) 1.4, Baso % (Auto) 0.5, Absolute Neuts (auto) 6.5, Absolute Lymphs (auto) 0.73 L, Nucleated RBC % 0, Differential Comment SCANNED, Anisocytosis 1+ 05/26/20 17:00: Sodium 138, Potassium 4.3, Chloride 106, Carbon Dioxide 27.0, Anion Gap 5, BUN 31 H, Creatinine 0.98, Estim Creat Clear Calc 72.34, Est GFR (MDRD) Af Amer 100, Est GFR (MDRD) Non-Af 83, BUN/Creatinine Ratio 31.7 H, Glucose 104, Calcium 8.7, Troponin I < 0.015 05/26/20 17:00: B-Natriuretic Peptide 1080.0 H Assessment/Plan All review of systems were negative except as mentioned above in the history of present illness and the other review of systems. 1. Acute heart failure with reduced ejection fraction: EF of 35% from echocardiogram on 11/06/2018 Plan: * IV furosemide 40 mg twice daily * Fluid restrict 1500 cc/day * Strict I's and O's and daily weights * Continue with carvedilol * Not currently on any RHYS inhibitor nor angiotensin receptor mayelin. Patient does have low normal blood pressures. May consider low-dose if pressures remain stable. 2. TEX Continue with BiPAP and as needed 3. Abdominal wound Continue with wound care and wound VAC. 4. Morbid obesity Complicates overall care and recovery. Consider bariatric evaluation as outpatient. 5. A. fib Continue with amiodarone and carvedilol EKG was of low voltage so unable to determine if patient is in sinus or in A. fib but appears to be rate controlled. Per previous documentation, patient is not a candidate for anticoagulation due to high fall risk and history of bleeding. Consider 10 a inhibitor if hemoglobin remained stable no evidence of any bleeding. 6.VTE prophylaxis with subcu enoxaparin. Inpatient E&M: [id number] Init Hosp L3
[2020-05-26 19:10] VITALS: PULSE 76; RESP 18; O2SAT 99
[2020-05-26 19:45] VITALS: BP 106/64; PULSE 83; RESP 18; TEMP 36.2; O2SAT 99
[2020-05-26 19:58] VITALS: BMI 77.3
[2020-05-26 20:02] VITALS: BMI 73.5
--- NOTE | 2020-05-26 20:57 | PN_ITS ---
Progress Note Received report from PCU charge nurse that telemetry for patient will not oyster picker. Both nursing and respiratory therapy have attempted to place telemetry leads but due to patient body habitus telemetry is unable to transmit. Telemetry DC'd at this time. EKG ordered for a.m. STROKE Vital Signs/Narrative: Vital Signs Temp Pulse Resp BP Pulse Ox 05/26/20 19:45 97.2 F L 83 18 106/64 99 05/26/20 19:10 76 18 99 05/26/20 18:29 97.2 F L 78 16 108/76 95 05/26/20 17:02 80 22 H 96/72 100
--- NOTE | 2020-05-26 21:04 | PN_ITS ---
Patient Problems: Active and Suspected Problems (Last Reviewed 05/26/20 @ 19:[address] Cabrera Arzola, DO) CHF exacerbation (Acute) - Physical Exam Vitals/I&O's: Vital Signs Temp Pulse Resp BP Pulse Ox 97.2 F L 83 18 106/64 99 05/26/20 19:45 05/26/20 19:45 05/26/20 19:45 05/26/20 19:45 05/26/20 19:45 Oxygen Flow Rate (L/min) 2 Oxygen Delivery Method Nasal Cannula Weight: 455 lb 4.073 oz Body Mass Index (BMI) 73.5 Laboratory Results 05/26/20 17:00: WBC 8.7, RBC 3.24 L, Hgb 9.1 L, Hct 31.4 L, MCV 96.9 H, MCH 28.1, MCHC 29.0 L, RDW Std Deviation 66.6 H, RDW Coeff of Florina 18.7 H, Plt Count 292, MPV 10.9, Immature Gran % (Auto) 0.300, Neut % (Auto) 75.2 H, Lymph % (Auto) 8.4 L, [place] % (Auto) 14.2 H, Eos % (Auto) 1.4, Baso % (Auto) 0.5, Absolute Neuts (auto) 6.5, Absolute Lymphs (auto) 0.73 L, Nucleated RBC % 0, Differential Comment SCANNED, Anisocytosis 1+ 05/26/20 17:00: Sodium 138, Potassium 4.3, Chloride 106, Carbon Dioxide 27.0, Anion Gap 5, BUN 31 H, Creatinine 0.98, Estim Creat Clear Calc 72.34, Est GFR (MDRD) Af Amer 100, Est GFR (MDRD) Non-Af 83, BUN/Creatinine Ratio 31.7 H, Glucose 104, Calcium 8.7, Troponin I < 0.015 05/26/20 17:00: B-Natriuretic Peptide 1080.0 H 05/26/20 20:40: Troponin I Pending Current Medications Acetaminophen (Acetaminophen 325 Mg Tablet) 650 mg PO Q6H PRN PRN PRN Reason: Pain Score 1-10/Temp > 100.7 F Amiodarone HCl (Amiodarone 200 Mg Tablet) 200 mg PO DAILY [facility] Bupropion HCl (Bupropion 100 Mg Tablet) 100 mg PO DAILY [facility]CLUD[facility] Carvedilol (Carvedilol 3.125 Mg Tablet) 3.125 mg PO BID COUNT [facility]CLUDES [facility] Cholecalciferol (Cholecalciferol (Vit D3) 1,000 Unit (25mcg)) 3,000 unit PO DAILY COUNT [facility]CLUDES [facility] Cyanocobalamin (Cyanocobalamin 500 Mcg Tablet) 1,000 mcg PO DAILY COUNT [facility]CLUDES [facility] Docusate Sodium (Docusate Sodium 100 Mg Capsule) 100 mg PO BID COUNT INCLUDES [facility] Enoxaparin Sodium (Enoxaparin 40 Mg/0.4 Ml Syringe) 40 mg SC BID COUNT INCLUDES [facility] Furosemide (Furosemide 40 Mg/4 Ml Vial) 40 mg IV BID@1000,1800 [facility]CLUDES [facility] Levothyroxine Sodium (Levothyroxine 25 Mcg Tablet) 25 mcg PO DAILY@0600 COUNT [facility]CLUD[facility] Multivitamins/Minerals (Multivitamins,Ther W-Minerals Tablet) 2 tablet PO DAILY@0800 [facility] Ondansetron HCl (Ondansetron 4 Mg/2 Ml Vial) 4 mg IV Q8H PRN PRN PRN Reason: NAUSEA/VOMITING Oxycodone HCl (Oxycodone 5 Mg Tablet) 5 mg PO Q6H PRN PRN Reason: Pain Score 1-10 Pantoprazole Sodium (Pantoprazole Sodium 40 Mg Tablet) 40 mg PO BID COUNT [facility]CLUDES [facility] Sertraline HCl (Sertraline 50 Mg Tablet) 50 mg PO DAILY COUNT [facility]CLUDES [facility] Sodium Chloride (0.9% Saline Lock 10 Ml Syringe) 10 - 40 ml IV UD PRN PRN Reason: SALINE FLUSH Zolpidem Tartrate (Zolpidem Tartrate 5 Mg Tablet) 10 mg PO QHS COUNT INCLUDES [facility] Medical Necessity - Tobacco Use Smoking Status: Never smoker Tobacco Use: Secondhand Assessment/Plan All Active Problems (Last Reviewed 05/26/20 @ 19:[address] Cabrera Arzola, DO) CHF exacerbation (Acute) Septic shock (Acute) Abdominal wall cellulitis (Acute) Contacted by PCU charge nurse regarding inability to capture telemetry for patient. Both nursing and respiratory therapy have attempted placement multiple times in an attempt to capture telemetry but have been unsuccessful. Okay to DC telemetry. EKG ordered for a.m.
[2020-05-26 21:54] VITALS: RESP 12
[2020-05-26] MEDS: oxyCODONE 5 MG Tablet PO (22:55)
[2020-05-26] MEDS: Docusate Sodium 100 MG Capsule PO (22:55)
[2020-05-26] MEDS: Carvedilol 3.125 MG TABLET PO (22:55)
[2020-05-26] MEDS: Zolpidem Tartrate 5 MG Tablet 10 MG PO (22:55)
[2020-05-26] MEDS: Pantoprazole Sodium 40 MG Tablet PO (22:55)
[2020-05-26] MEDS: Enoxaparin 40 MG/0.4 ML Syringe SC (22:56)
[2020-05-27] VITALS (10 sets, daily range): BP systolic 98–105; BP diastolic 49–61; PULSE 63–87; RESP 12–24; TEMP 36.2–36.8; O2SAT 95–99
--- NOTE | 2020-05-27 05:55 | EKG12_ITS ---
Test Reason : AM EKG Blood Pressure : / mmHG Vent. Rate : 069 BPM Atrial Rate : 074 BPM P-R Int : 144 ms QRS Dur : 004 ms QT Int : 490 ms P-R-T Axes : 189 000 056 degrees QTc Int : 525 ms Unusual P axis, possible ectopic atrial rhythm with Premature ventricular complexes or Fusion complex es Indeterminate axis Nonspecific ST and T wave abnormality Prolonged QT Abnormal ECG No previous ECGs available Confirmed by HARRISON KINNEY, MODESTA ([id number]), editor in chief EDVIN VAN ([id number]) on 06/01/2020 12:27:39 PM Referred By: Confirmed By:MODESTA TERRY MD
[2020-05-27] MEDS: Levothyroxine 25 MCG TABLET PO (06:11)
[2020-05-27 06:40] LABS: Anion Gap 4 (5-15); BUN 30 mg/dL (7-18); BUN/Creat Ratio 32.3 RATIO (10-20); Calcium,Total 8.4 mg/dL (8.5-10.1); Chloride 108 mmol/L (98-107); Cholesterol 58 mg/dL (200); Creatinine, Serum 0.93 mg/dL (0.70-1.30); EST Glomerular Filtration Rate 88 mL/min (>60); Est Glom Filt Rate - Afr Amer 107 mL/min (>60); Estimated Creatinine Clearance 76.22 ml/min; Glucose 87 mg/dL (74-106); High Density Lipoprotein 23 mg/dL; Potassium 4.4 mmol/L (3.5-5.1); Sodium Level 135 mmol/L (136-145); Triglycerides 50 mg/dL; Very Low Density Lipoprotein 10 mg/dL (5-40)
[2020-05-27 07:04] LABS: Absolute Lymphocyte Count 0.63 X10^3/uL (0.83-4.51); Absolute Neutrophil Count 5.2 X10^3/uL (2.0-7.7); Basophil# 0.04 X10^3/uL; Basophil% 0.6 % (0-1); Eosinophil# 0.11 X10^3/uL; Eosinophils% 1.5 % (0-5); Hematocrit 30.1 % (40-54); Hemoglobin 8.9 g/dL (13.0-16.5); Lymphocyte # 0.63 X10^3/ul (4.0); Lymphocyte % 8.7 % (19-41); Mean Corp Hgb Conc 29.6 g/dL (32-36); Mean Corpuscular Hgb 28.3 pg (27.0-32.0); Mean Corpuscular Volume 95.6 fL (80-94); Mean Platelet Vol. 10.7 fl (6.2-12.0); Monocyte% 16.6 % (0-10); NRBC Flagged by Analyzer 0 % (0-5); Neutrophil % 72.2 % (47-70); Platelet Count 236 K/mm3 (150-450); Red Blood Count 3.15 M/mm3 (4.6-6.2); White Blood Count 7.2 K/mm3 (4.4-11.0)
[2020-05-27] MEDS: Docusate Sodium 100 MG Capsule PO ×2 (09:18→21:20)
[2020-05-27] MEDS: buPROPion 100 MG Tablet PO (09:18)
[2020-05-27] MEDS: Enoxaparin 40 MG/0.4 ML Syringe SC ×2 (09:18→21:20)
[2020-05-27] MEDS: Amiodarone 200 MG Tablet PO (09:18)
[2020-05-27] MEDS: Carvedilol 3.125 MG TABLET PO ×2 (09:18→21:20)
[2020-05-27] MEDS: Pantoprazole Sodium 40 MG Tablet PO ×2 (09:18→21:20)
[2020-05-27] MEDS: Multivitamins,Ther W-Minerals Tablet 2 TABLET PO (09:18)
[2020-05-27] MEDS: Sertraline 50 MG Tablet PO (09:18)
[2020-05-27] MEDS: Cyanocobalamin 500 MCG Tablet 1000 MCG PO (09:18)
[2020-05-27] MEDS: Furosemide 40 MG/4 ML Vial IV ×2 (09:19→18:15)
[2020-05-27] MEDS: 0.9% Saline Lock 10 ML Syringe IV ×3 (09:19→21:15)
--- NOTE | 2020-05-27 09:33 | NURSING ---
wound photo: left lower abdomen
--- NOTE | 2020-05-27 10:09 | CASEMGMT ---
SW faxed updates to [facility] as this is where patient is from care home. Lesly [employer]
--- NOTE | 2020-05-27 14:36 | PCM.PN.HOSP ---
<Lawrence Engel - Last Filed: 05/27/20 16:06> Patient Problems: Active and Suspected Problems (Last Reviewed 05/26/20 @ 19:[address] Cabrera Arzola DO) CHF exacerbation (Acute) Reason for Visit: CHF exacerbation. Subjective: This is a 60 y/o male who was admitted to the hospital for CHF exacerbation. Prior to admission, patient had been increasing the use of his BiPAP machine due to SOB, and a non productive dry cough. Vitals/I&O's: Vital Signs Temp Pulse Resp BP Pulse Ox 97.7 F L 72 18 103/61 97 05/27/20 09:16 05/27/20 09:16 05/27/20 09:16 05/27/20 09:16 05/27/20 10:30 Oxygen Flow Rate (L/min) 2 Oxygen Delivery Method Nasal Cannula Weight: 461 lb 13.895 oz Body Mass Index (BMI) 73.5 Intake and Output for Last 24 Hours 05/25/20 05/26/20 05/27/20 23:59 23:59 23:59 Intake Total 480 / 480 Output Total 650 / 650 Balance -170 / -170 General: Alert, Oriented x3, Cooperative HEENT: Atraumatic, PERRLA, EOMI, Normocephalic Neck: - - Enlarged neck consitent with patients body habitus Lungs: Diminished, Rales, Rhonchi, Short of Breath - SOB with movement. None at rest. Cardiovascular: Regular rate, No murmurs Abdomen: Distended, Obese, Rigid, - - Large wound of the lower left abdomen. Extremities: Diminished Peripheral Pulses, Edema Skin: Ulcer/ Wound - Large wound of the left lower abdomen Musculoskeletal: Muscle Wasting Neurological: Cranial nerves II-XII grossly intact Psych/Mental Status: Normal Affect Laboratory Results 05/26/20 17:00: WBC 8.7, RBC 3.24 L, Hgb 9.1 L, Hct 31.4 L, MCV 96.9 H, MCH 28.1, MCHC 29.0 L, RDW Std Deviation 66.6 H, RDW Coeff of Florina 18.7 H, Plt Count 292, MPV 10.9, Immature Gran % (Auto) 0.300, Neut % (Auto) 75.2 H, Lymph % (Auto) 8.4 L, [place] % (Auto) 14.2 H, Eos % (Auto) 1.4, Baso % (Auto) 0.5, Absolute Neuts (auto) 6.5, Absolute Lymphs (auto) 0.73 L, Nucleated RBC % 0, Differential Comment SCANNED, Anisocytosis 1+ 05/26/20 17:00: Sodium 138, Potassium 4.3, Chloride 106, Carbon Dioxide 27.0, Anion Gap 5, BUN 31 H, Creatinine 0.98, Estim Creat Clear Calc 72.34, Est GFR (MDRD) Af Amer 100, Est GFR (MDRD) Non-Af 83, BUN/Creatinine Ratio 31.7 H, Glucose 104, Calcium 8.7, Troponin I < 0.015 05/26/20 17:00: B-Natriuretic Peptide 1080.0 H 05/26/20 20:40: Troponin I < 0.015 05/26/20 23:35: Troponin I < 0.015 05/27/20 06:00: WBC Cancelled, Corrected WBC Cancelled, RBC Cancelled, Hgb Cancelled, Hct Cancelled, MCV Cancelled, MCH Cancelled, MCHC Cancelled, RDW Std Deviation Cancelled, RDW Coeff of Florina Cancelled, Plt Count Cancelled, MPV Cancelled, Immature Gran % (Auto) Cancelled, Neut % (Auto) Cancelled, Lymph % (Auto) Cancelled, [place] % (Auto) Cancelled, Eos % (Auto) Cancelled, Baso % (Auto) Cancelled, Absolute Neuts (auto) Cancelled, Absolute Lymphs (auto) Cancelled, Total Counted Cancelled, Neutrophils % (Manual) Cancelled, Band Neutrophils % Cancelled, Lymphocytes % (Manual) Cancelled, Monocytes % (Manual) Cancelled, Eosinophils % (Manual) Cancelled, Basophils % (Manual) Cancelled, Metamyelocytes % Cancelled, Myelocytes % Cancelled, Promyelocytes % Cancelled, Blast Cells % Cancelled, Plasma Cell % (Manual) Cancelled, Other Cells % Cancelled, Nucleated RBC % Cancelled, Nucleated RBCs/100 WBC Cancelled, Differential Comment Cancelled, Diff Path Review Cancelled, Hypersegmented Neuts Cancelled, Atypical Lymphocytes Cancelled, Reactive Lymphocytes Cancelled, Smudge Cells Cancelled, Toxic Granulation Cancelled, Toxic Vacuolation Cancelled, Dohle Bodies Cancelled, Tresa Rods Cancelled, Platelet Estimate Cancelled, Plt Morphology Comment Cancelled, RBC Morphology Cancelled, Polychromasia Cancelled, Hypochromasia Cancelled, Poikilocytosis Cancelled, Basophilic Stippling Cancelled, Anisocytosis Cancelled, Microcytosis Cancelled, Macrocytosis Cancelled, Spherocytes Cancelled, Sickle Cells Cancelled, Target Cells Cancelled, Tear Drop Cells Cancelled, Ovalocytes Cancelled, Stomatocytes Cancelled, Manzano-Flowood Bodies Cancelled, [place] Cells Cancelled, Bite Cells Cancelled, Crenated Cell Cancelled, Acanthocytes (Spur) Cancelled, Rouleaux Cancelled, Schistocytes Cancelled 05/27/20 06:00: Sodium 135 L, Potassium 4.4, Chloride 108 H, Carbon Dioxide 23.0, Anion Gap 4 L, BUN 30 H, Creatinine 0.93, Estim Creat Clear Calc 76.22, Est GFR (MDRD) Af Amer 107, Est GFR (MDRD) Non-Af 88, BUN/Creatinine Ratio 32.3 H, Glucose 87, Calcium 8.4 L, Triglycerides 50, Cholesterol 58, LDL Cholesterol 25, VLDL Cholesterol 10, HDL Cholesterol 23 L 05/27/20 06:52: WBC 7.2, RBC 3.15 L, Hgb 8.9 L, Hct 30.1 L, MCV 95.6 H, MCH 28.3, MCHC 29.6 L, RDW Std Deviation 65.0 H, RDW Coeff of Florina 19.0 H, Plt Count 236, MPV 10.7, Immature Gran % (Auto) 0.400, Neut % (Auto) 72.2 H, Lymph % (Auto) 8.7 L, [place] % (Auto) 16.6 H, Eos % (Auto) 1.5, Baso % (Auto) 0.6, Absolute Neuts (auto) 5.2, Absolute Lymphs (auto) 0.63 L, Nucleated RBC % 0 Current Medications Acetaminophen (Acetaminophen 325 Mg Tablet) 650 mg PO Q6H PRN PRN PRN Reason: Pain Score 1-10/Temp > 100.7 F Amiodarone HCl (Amiodarone 200 Mg Tablet) 200 mg PO DAILY [facility] Last Admin: 05/27/20 09:18 Dose: 200 mg Documented by: Bupropion HCl (Bupropion 100 Mg Tablet) 100 mg PO DAILY [facility] Last Admin: 05/27/20 09:18 Dose: 100 mg Documented by: Carvedilol (Carvedilol 3.125 Mg Tablet) 3.125 mg PO BID [facility] Last Admin: 05/27/20 09:18 Dose: 3.125 mg Documented by: Cholecalciferol (Cholecalciferol (Vit D3) 1,000 Unit (25mcg)) 3,000 unit PO DAILY [facility] Last Admin: 05/27/20 09:18 Dose: 3,000 unit Documented by: Cyanocobalamin (Cyanocobalamin 500 Mcg Tablet) 1,000 mcg PO DAILY [facility] Last Admin: 05/27/20 09:18 Dose: 1,000 mcg Documented by: Docusate Sodium (Docusate Sodium 100 Mg Capsule) 100 mg PO BID [facility] Last Admin: 05/27/20 09:18 Dose: 100 mg Documented by: Enoxaparin Sodium (Enoxaparin 40 Mg/0.4 Ml Syringe) 40 mg SC BID [facility] Last Admin: 05/27/20 09:18 Dose: 40 mg Documented by: Furosemide (Furosemide 40 Mg/4 Ml Vial) 40 mg IV BID@1000,1800 [facility] Last Admin: 05/27/20 09:19 Dose: 40 mg Documented by: Levothyroxine Sodium (Levothyroxine 25 Mcg Tablet) 25 mcg PO DAILY@0600 [facility] Last Admin: 05/27/20 06:11 Dose: 25 mcg Documented by: Multivitamins/Minerals (Multivitamins,Ther W-Minerals Tablet) 2 tablet PO DAILY@0800 [facility] Last Admin: 05/27/20 09:18 Dose: 2 tablet Documented by: Ondansetron HCl (Ondansetron 4 Mg/2 Ml Vial) 4 mg IV Q8H PRN PRN PRN Reason: NAUSEA/VOMITING Oxycodone HCl (Oxycodone 5 Mg Tablet) 5 mg PO Q6H PRN PRN Reason: Pain Score 1-10 Last Admin: 05/26/20 22:55 Dose: 5 mg Documented by: Pantoprazole Sodium (Pantoprazole Sodium 40 Mg Tablet) 40 mg PO BID [facility] Last Admin: 05/27/20 09:18 Dose: 40 mg Documented by: Sertraline HCl (Sertraline 50 Mg Tablet) 50 mg PO DAILY [facility] Last Admin: 05/27/20 09:18 Dose: 50 mg Documented by: Sodium Chloride (0.9% Saline Lock 10 Ml Syringe) 10 - 40 ml IV UD PRN PRN Reason: SALINE FLUSH Last Admin: 05/27/20 09:19 Dose: 10 ml Documented by: Zolpidem Tartrate (Zolpidem Tartrate 5 Mg Tablet) 10 mg PO QHS [facility] Last Admin: 05/26/20 22:55 Dose: 10 mg Documented by: Capacity - Capacity Assessment Tool Can the patient make a choice & communicate that choice?: Yes Can the patient understand benefits, risks and alternatives?: Yes Can the patient make a logical, rational choice?: Yes Is the choice the patient makes consistent w/ their values?: Yes Is there an impending, emergent risk to the patient?: No Does the patient have an Advance Directive?: Unable to Determine Is there a Surrogate Available?: No i.e. HCPOA: Unable to Determine i.e. close relative (spouse, child, parent, sibling)?: Unable to Determine Medical Necessity - Tobacco Use Smoking Status: Never smoker Tobacco Use: Secondhand Assessment/Plan All Active Problems (Last Reviewed 05/26/20 @ 19:[address] Cabrera Arzola, DO) CHF exacerbation (Acute) Septic shock (Acute) Abdominal wall cellulitis (Acute) Mr. Gold is a 60 y/o male who was admitted due to an acute CHF exacerbation which is causing SOB, a non-productive dry cough, and more frequent use of his BiPAP machine. BNP was 1080 on admission. Patient reports that his SOB has improved since admission and was able to communicate in complete sentences on exam. Patient still reports feeling like he is fluid overloaded. Patient has not responded to 40mg Bolus of Lasix as his wait continues to increase. Another bolus of Lasix will be administered and patient will remain on fluid restriction. 1) Acute on chronic CHF exacerbation; Asessment - Remains fluid overloaded per daily weights and physical exam. - I/O 480ml/650ml - Weight 461lbs, increase of 6 lbs since admission. - V/S stable Plan - Administer second bolus of 40mg IV Lasix. - Remain admitted overnight. 2) Open would, abdominal wall, lateral Assessment - Wound VAC in place Plan - Wound nurse monitoring. 3) Morbid obesity Assessment - Current weight is 461 lbs - BMI 77.2 Plan - 1800 calorie diet ordered while admitted. - Dietitian consulted. 4) TEX Assessment - Managed outpatient on BiPAP machine Plan - Use BiPAP at night, as needed. 5) Anxiety and Depression Assessment - Monitored outpatient Plan - Continue outpatient management of Bupropion, Sertraline, and Ambien 6) Hyperlipidemia Assessment - Triglycerides, Cholesterol, LDL, VLDL are within normal limits - HDL cholesterol low Plan - Follow up with Primary care provider. 7) DDD of the Lumbar spine Assessment - Managed outpatient Plan - Continue with PRN oxycodone, per outpatient management. 8) Benign essential hypertension - Stable 9) COPD - Stable VTE prophylaxis with Lovenox SC. <Paintsil,Stella - Last Filed: 05/28/20 07:15> Vitals/I&O's: Vital Signs Temp Pulse Resp BP Pulse Ox 98.0 F 71 18 99/56 L 99 05/27/20 15:20 05/27/20 15:20 05/27/20 15:20 05/27/20 15:20 05/27/20 15:25 Oxygen Flow Rate (L/min) 2 Oxygen Delivery Method Nasal Cannula Weight: 209.5 kg Body Mass Index (BMI) 73.5 Intake and Output for Last 24 Hours 05/25/20 05/26/20 05/27/20 23:59 23:59 23:59 Intake Total 480 / 480 Output Total 650 / 650 Balance -170 / -170 Laboratory Results 05/26/20 17:00: WBC 8.7, RBC 3.24 L, Hgb 9.1 L, Hct 31.4 L, MCV 96.9 H, MCH 28.1, MCHC 29.0 L, RDW Std Deviation 66.6 H, RDW Coeff of Florina 18.7 H, Plt Count 292, MPV 10.9, Immature Gran % (Auto) 0.300, Neut % (Auto) 75.2 H, Lymph % (Auto) 8.4 L, [place] % (Auto) 14.2 H, Eos % (Auto) 1.4, Baso % (Auto) 0.5, Absolute Neuts (auto) 6.5, Absolute Lymphs (auto) 0.73 L, Nucleated RBC % 0, Differential Comment SCANNED, Anisocytosis 1+ 05/26/20 17:00: Sodium 138, Potassium 4.3, Chloride 106, Carbon Dioxide 27.0, Anion Gap 5, BUN 31 H, Creatinine 0.98, Estim Creat Clear Calc 72.34, Est GFR (MDRD) Af Amer 100, Est GFR (MDRD) Non-Af 83, BUN/Creatinine Ratio 31.7 H, Glucose 104, Calcium 8.7, Troponin I < 0.015 05/26/20 17:00: B-Natriuretic Peptide 1080.0 H 05/26/20 20:40: Troponin I < 0.015 05/26/20 23:35: Troponin I < 0.015 05/27/20 06:00: WBC Cancelled, Corrected WBC Cancelled, RBC Cancelled, Hgb Cancelled, Hct Cancelled, MCV Cancelled, MCH Cancelled, MCHC Cancelled, RDW Std Deviation Cancelled, RDW Coeff of Florina Cancelled, Plt Count Cancelled, MPV Cancelled, Immature Gran % (Auto) Cancelled, Neut % (Auto) Cancelled, Lymph % (Auto) Cancelled, [place] % (Auto) Cancelled, Eos % (Auto) Cancelled, Baso % (Auto) Cancelled, Absolute Neuts (auto) Cancelled, Absolute Lymphs (auto) Cancelled, Total Counted Cancelled, Neutrophils % (Manual) Cancelled, Band Neutrophils % Cancelled, Lymphocytes % (Manual) Cancelled, Monocytes % (Manual) Cancelled, Eosinophils % (Manual) Cancelled, Basophils % (Manual) Cancelled, Metamyelocytes % Cancelled, Myelocytes % Cancelled, Promyelocytes % Cancelled, Blast Cells % Cancelled, Plasma Cell % (Manual) Cancelled, Other Cells % Cancelled, Nucleated RBC % Cancelled, Nucleated RBCs/100 WBC Cancelled, Differential Comment Cancelled, Diff Path Review Cancelled, Hypersegmented Neuts Cancelled, Atypical Lymphocytes Cancelled, Reactive Lymphocytes Cancelled, Smudge Cells Cancelled, Toxic Granulation Cancelled, Toxic Vacuolation Cancelled, Dohle Bodies Cancelled, Tresa Rods Cancelled, Platelet Estimate Cancelled, Plt Morphology Comment Cancelled, RBC Morphology Cancelled, Polychromasia Cancelled, Hypochromasia Cancelled, Poikilocytosis Cancelled, Basophilic Stippling Cancelled, Anisocytosis Cancelled, Microcytosis Cancelled, Macrocytosis Cancelled, Spherocytes Cancelled, Sickle Cells Cancelled, Target Cells Cancelled, Tear Drop Cells Cancelled, Ovalocytes Cancelled, Stomatocytes Cancelled, Manzano-Flowood Bodies Cancelled, [place] Cells Cancelled, Bite Cells Cancelled, Crenated Cell Cancelled, Acanthocytes (Spur) Cancelled, Rouleaux Cancelled, Schistocytes Cancelled 05/27/20 06:00: Sodium 135 L, Potassium 4.4, Chloride 108 H, Carbon Dioxide 23.0, Anion Gap 4 L, BUN 30 H, Creatinine 0.93, Estim Creat Clear Calc 76.22, Est GFR (MDRD) Af Amer 107, Est GFR (MDRD) Non-Af 88, BUN/Creatinine Ratio 32.3 H, Glucose 87, Calcium 8.4 L, Triglycerides 50, Cholesterol 58, LDL Cholesterol 25, VLDL Cholesterol 10, HDL Cholesterol 23 L 05/27/20 06:52: WBC 7.2, RBC 3.15 L, Hgb 8.9 L, Hct 30.1 L, MCV 95.6 H, MCH 28.3, MCHC 29.6 L, RDW Std Deviation 65.0 H, RDW Coeff of Florina 19.0 H, Plt Count 236, MPV 10.7, Immature Gran % (Auto) 0.400, Neut % (Auto) 72.2 H, Lymph % (Auto) 8.7 L, [place] % (Auto) 16.6 H, Eos % (Auto) 1.5, Baso % (Auto) 0.6, Absolute Neuts (auto) 5.2, Absolute Lymphs (auto) 0.63 L, Nucleated RBC % 0 Current Medications Acetaminophen (Acetaminophen 325 Mg Tablet) 650 mg PO Q6H PRN PRN PRN Reason: Pain Score 1-10/Temp > 100.7 F Amiodarone HCl (Amiodarone 200 Mg Tablet) 200 mg PO DAILY [facility] Last Admin: 05/27/20 09:18 Dose: 200 mg Documented by: Bupropion HCl (Bupropion 100 Mg Tablet) 100 mg PO DAILY [facility] Last Admin: 05/27/20 09:18 Dose: 100 mg Documented by: Carvedilol (Carvedilol 3.125 Mg Tablet) 3.125 mg PO BID [facility] Last Admin: 05/27/20 09:18 Dose: 3.125 mg Documented by: Cholecalciferol (Cholecalciferol (Vit D3) 1,000 Unit (25mcg)) 3,000 unit PO DAILY [facility] Last Admin: 05/27/20 09:18 Dose: 3,000 unit Documented by: Cyanocobalamin (Cyanocobalamin 500 Mcg Tablet) 1,000 mcg PO DAILY [facility] Last Admin: 05/27/20 09:18 Dose: 1,000 mcg Documented by: Docusate Sodium (Docusate Sodium 100 Mg Capsule) 100 mg PO BID [facility] Last Admin: 05/27/20 09:18 Dose: 100 mg Documented by: Enoxaparin Sodium (Enoxaparin 40 Mg/0.4 Ml Syringe) 40 mg SC BID [facility] Last Admin: 05/27/20 09:18 Dose: 40 mg Documented by: Furosemide (Furosemide 40 Mg/4 Ml Vial) 40 mg IV BID@1000,1800 [facility] Last Admin: 05/27/20 09:19 Dose: 40 mg Documented by: Levothyroxine Sodium (Levothyroxine 25 Mcg Tablet) 25 mcg PO DAILY@0600 [facility] Last Admin: 05/27/20 06:11 Dose: 25 mcg Documented by: Multivitamins/Minerals (Multivitamins,Ther W-Minerals Tablet) 2 tablet PO DAILY@0800 [facility] Last Admin: 05/27/20 09:18 Dose: 2 tablet Documented by: Ondansetron HCl (Ondansetron 4 Mg/2 Ml Vial) 4 mg IV Q8H PRN PRN PRN Reason: NAUSEA/VOMITING Oxycodone HCl (Oxycodone 5 Mg Tablet) 5 mg PO Q6H PRN PRN Reason: Pain Score 1-10 Last Admin: 05/26/20 22:55 Dose: 5 mg Documented by: Pantoprazole Sodium (Pantoprazole Sodium 40 Mg Tablet) 40 mg PO BID [facility] Last Admin: 05/27/20 09:18 Dose: 40 mg Documented by: Sertraline HCl (Sertraline 50 Mg Tablet) 50 mg PO DAILY [facility] Last Admin: 05/27/20 09:18 Dose: 50 mg Documented by: Sodium Chloride (0.9% Saline Lock 10 Ml Syringe) 10 - 40 ml IV UD PRN PRN Reason: SALINE FLUSH Last Admin: 05/27/20 09:19 Dose: 10 ml Documented by: Zolpidem Tartrate (Zolpidem Tartrate 5 Mg Tablet) 10 mg PO QHS [facility] Last Admin: 05/26/20 22:55 Dose: 10 mg Documented by: STROKE Vital Signs/Narrative: Vital Signs Temp Pulse Resp BP Pulse Ox 05/27/20 15:25 99 05/27/20 15:20 98.0 F 71 18 99/56 L 99 Assessment/Plan This patient was seen in conjunction with MEJIA Najera. I have independently interviewed and examined the patient and reviewed pertinent historical, laboratory, and other data. Please refer to MEJIA Najera's note for his patient's presentation, findings, and recommendations. I have reviewed and his note and concur with his documentation Patient was seen and examined. He feels much improved. Has been using his BiPAP overnight. No other acute events overnight. Physical Exam: Gen: Super morbidly obese, not pale, not jaundiced CVS:HS I +II, regular, no murmurs RESP: Diminished at lung bases GI: BS present and normal, soft, nontender, no palpable organs, wound vac to abdomen EXT: Bilateral leg edema, +1-2 ASSESSMENT: 1. Acute on chronic systolic CHF, previous EF of 35% 2. TEX on BiPAP 3. Super morbid obesity 4. Open wound to the lateral abdominal wall, status post wound vac 5. Hypertension 6. Hyperlipidemia 7. Anxiety/depression Plan: Continue on CHF protocol with Lasix Continue to encourage use of BiPAP Will reevaluate in a.m. possible discharge back to half-way facility Inpatient E&M: [id number] [facility] L2
--- NOTE | 2020-05-27 15:32 | CASEMGMT ---
Pt qualifies for a Palliative referral per the [facility] palliative screening tool. Dr. Moura aware and states ok for Palliative c/s at this time. Palliative updated at this time.
[2020-05-27] MEDS: Zolpidem Tartrate 5 MG Tablet 10 MG PO (21:20)
--- NOTE | 2020-05-27 22:37 | CPS ---
Pt on his own bipap machine.
[2020-05-28] VITALS (11 sets, daily range): BP systolic 87–99; BP diastolic 50–70; PULSE 72–80; RESP 16–18; TEMP 36.4–37.1; O2SAT 94–99
[2020-05-28] MEDS: Levothyroxine 25 MCG TABLET PO (05:18)
[2020-05-28] MEDS: Nystatin Powder 15gm Bottle 1 APPLIC TOPICAL ×3 (05:19→22:40)
--- NOTE | 2020-05-28 07:10 | CPS ---
patient on home cpap unit at time of visit.
--- NOTE | 2020-05-28 09:29 | PCM.CONS.P ---
Problem List (1) CHF exacerbation Status: Acute (2) Diastolic heart failure Status: Chronic (3) Septic shock Status: Acute (4) Abdominal wall cellulitis Status: Acute (5) Ulcer of abdomen wall with fat layer exposed Status: Chronic (6) Morbid obesity Status: Chronic (7) Open wound, abdominal wall, lateral Status: Chronic (8) Lumbar back pain Status: Chronic Comment: from weight of massive abdominal panniculus (9) Ventral hernia Status: Chronic Comment: laparoscopic repair 2 years ago with mesh (10) Intertrigo Status: Chronic Comment: abdominal wall skin crease intertrigo (11) Recent weight loss Status: Chronic Comment: about 100 lbs (12) Panniculitis Status: Chronic (13) Abdominal panniculus, symptomatic Status: Chronic (14) Presence of implantable cardioverter-defibrillator (ICD) Status: Chronic (15) History of radiofrequency ablation (RFA) procedure for cardiac arrhythmia Status: Chronic Comment: 2007 @ [facility] per Dr. Lange, 2009 @ [facility] for WPW with success. (16) Primary osteoarthritis of right shoulder Status: Chronic (17) DDD (degenerative disc disease), lumbosacral Status: Chronic (18) Spondylosis of lumbosacral region without myelopathy or radiculopathy Status: Chronic (19) Rotator cuff tear Status: Chronic (20) COPD (chronic obstructive pulmonary disease) Status: Chronic (21) Anxiety and depression Status: Chronic (22) TXE (obstructive sleep apnea) Status: Chronic (23) Hyperlipidemia Status: Chronic Qualifiers: Hyperlipidemia type: unspecified Qualified Code(s): E78.5 - Hyperlipidemia, unspecified (24) Benign essential hypertension Status: Chronic (25) Rheumatoid arthritis Status: Chronic (26) dilated right ventricle Status: Chronic (27) Cardiomyopathy Status: Chronic Qualifiers: Cardiomyopathy type: dilated Qualified Code(s): I42.0 - Dilated cardiomyopathy (28) Super obesity Status: Chronic (29) Atrial fibrillation Status: Chronic Qualifiers: Atrial fibrillation type: paroxysmal Qualified Code(s): I48.0 - Paroxysmal atrial fibrillation History of Present Illness Date of Consult: 05/28/20 Reason for Consult: Exacerbation of COPD, chronic pain Requesting physician: [] Primary care physician: Dr. Esteban Tim MD - History of Present Illness The patient is a 60 year old morbidly obese M [] who was referred to [facility] for management of dyspnea related to exacerbation of COPD and CHF and chronic pain. He presented to the ER on 05/26/20 from [facility] facility for worsening shortness of breath the last 3 days, where he was inpatient for treatment of abdominal wall cellulitis. See below for extensive past medical history. Typically patient would use his BiPAP only at night but was finding he was using it during the day. Patient had denied any complaints symptoms of fever, chills, fatigue, chest pain, nausea, or vomiting. Had BNP drawn that was 1080, and Chest x-ray that showed bibasilar atelectasis. EKG voltage poor due to body habitus but appeared to be in sinus rhythm. Echo was put on hold. Patient was placed on 1500 mL fluid restriction and diuresed with extra Lasix. Currently has a wound VAC in place to left abdominal wall. Seen today lying in bed eating breakfast. Alert and oriented x3 pleasant, noted conversational dyspnea with 3-4 words spoken with O2 Per NC at 2 liters. Palliative program explained with management of dyspnea and chronic pain and symptom management. Reports that he hopes to return to his apartment. Previous help with [facility] for 16 hours/day but unsure if he still qualifies for that assistance due to insurance. Currently receives shoulder injections with Dr. Rios's office but has not been helpful. Understanding that only narcotics could be ordered through Palliative Care. Currently takes Oxycodone 5 mg every 6 hours PRN for pain and reports effective. PT has been working with patient to assist with standing, but states that minimal effort is exhausting at this point. Continent of bowel and bladder and is extensive assist X 2 with walker. Patient discouraged with current weight and health status. How did I get here to this? Denies any fever, chest pain, dizziness, mental status changes Patient Problems: Chronic Problems (Last Reviewed 05/26/20 @ 19:[address] Cabrera Arzola, DO) Ulcer of abdomen wall with fat layer exposed (Chronic) Morbid obesity (Chronic) Open wound, abdominal wall, lateral (Chronic) Lumbar back pain (Chronic) from weight of massive abdominal panniculus Ventral hernia (Chronic) laparoscopic repair 2 years ago with mesh Intertrigo (Chronic) abdominal wall skin crease intertrigo Recent weight loss (Chronic) about 100 lbs Panniculitis (Chronic) Abdominal panniculus, symptomatic (Chronic) Presence of implantable cardioverter-defibrillator (ICD) (Chronic) History of radiofrequency ablation (RFA) procedure for cardiac arrhythmia (Chronic) 2007 @ [facility] per Dr. Lange, 2009 @ [facility] for WPW with success. 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) Rotator cuff tear (Chronic) COPD (chronic obstructive pulmonary disease) (Chronic) Anxiety and depression (Chronic) Diastolic heart failure (Chronic) TEX (obstructive sleep apnea) (Chronic) Hyperlipidemia (Chronic) Benign essential hypertension (Chronic) Rheumatoid arthritis (Chronic) dilated right ventricle (Chronic) Cardiomyopathy (Chronic) Super obesity (Chronic) Atrial fibrillation (Chronic) Surgical History: cholecystectomy, herniorrhaphy, - Psychiatric History: Anxiety, Depression Home Medications: Ambulatory Orders Medication Instructions Recorded Bupropion HCl 100 mg PO DAILY 05/02/14 Nitroglycerin (INPATIENT USE) 0.4 mg SUBLINGUAL Q5M PRN 07/17/14 [Nitrostat] Cyanocobalamin (Vitamin B-12) 1,000 mcg PO DAILY 05/08/18 [Vitamin B-12] Multivitamin with Minerals 2 tab PO DAILY 05/08/18 [Multiple Vitamin] levothyroxine 25 mcg tablet 25 mcg PO DAILY 05/22/19 Pantoprazole Sodium [Protonix] 40 mg PO BID tab 11/23/19 Zolpidem Tartrate [Ambien] 10 mg PO QHS 03/16/20 Oxycodone HCl 5 mg PO Q6H PRN 03/31/20 Amiodarone HCl [Cordarone] 200 mg PO DAILY 05/26/20 Carvedilol 3.125 mg PO BID 05/26/20 Cholecalciferol (Vitamin D3) 3,000 unit PO DAILY 05/26/20 [Vitamin D3] Docusate Sodium [Colace] 100 mg PO BID 05/26/20 Furosemide [Lasix] 40 mg PO DAILY 05/26/20 Lactobacillus Rhamnosus GG 1 cap PO BID 05/26/20 [Culturelle] Sertraline HCl [Zoloft] 50 mg PO DAILY 05/26/20 Allergies latex Allergy (Verified 05/26/20 16:49) Rash warfarin sodium [From Coumadin] Adverse Reaction (Verified 05/26/20 16:49) Other caused 2 holes in lungs and chest, advised to never take again Maternal Family History: Family History (Last Reviewed 05/26/20 @ 19:[address] Cabrera Arzola DO) Sister Arthritis Brother Psychiatric care History Items: Heart Disease, Hypertension Paternal Family History: Family History (Last Reviewed 05/26/20 @ 19:[address] Cabrera Arzola DO) Sister Arthritis Brother Psychiatric care History Items: Heart Disease, Hypertension - Social History Lives: [place] Smoking Status: Never smoker Tobacco Use: Secondhand Alcohol: None Drugs: None Review of Systems Constitutional: Reports: Weakness, Weight Change. Denies: Anorexia, Chills, Fever, Malaise HEENT: Denies: Dysphasia, Head Aches, Nasal Congestion, Sore Throat Cardiovascular: Reports: Edema, Orthopnea. Denies: Chest Pain, Chest Pressure Respiratory: Reports: Shortness of Breath, Shortness of breath at rest Gastrointestinal: Reports: Abdominal Pain - wound pain. Denies: Nausea, Vomiting Genitourinary: Denies: Dysuria, Incontinence Musculoskeletal: Reports: Back Pain, Shoulder Pain Skin: Reports: Dryness, Wounds - Left abdominal wound with wound vac in place Neurological: Denies: Balance problems, Slurred speech, Difficulty swallowing Psychiatric: Reports: Anxiety Physical Exam General: Alert, Oriented x3, - - morbidly obese HEENT: Atraumatic, EOMI, Normocephalic Oral: Moist Mucosa Neck: Supple Lungs: Diminished Cardiovascular: Regular rate, Regular Rhythm, Normal S1, Normal S2 - Distant heart tones due to body habitus Abdomen: Bowel Sounds Present, Obese, Tender Extremities: No cyanosis, Edema - 1-2+ edema BLE Skin: Ulcer/ Wound - large wound left lower abdomen Neurological: Cranial nerves II-XII grossly intact Psych/Mental Status: Normal Affect, Appropriate, Alert and oriented to time, place, person, mood and affect Objective: Vital Signs Temp Pulse Resp BP Pulse Ox 97.6 F L 78 18 99/50 L 94 05/28/20 03:11 05/28/20 03:11 05/28/20 03:11 05/28/20 03:11 05/28/20 07:09 Oxygen Flow Rate (L/min) 2 Oxygen Delivery Method CPAP Weight: 208.2 kg Body Mass Index (BMI) 73.5 Intake and Output for Last 24 Hours 05/26/20 05/27/20 05/28/20 23:59 23:59 23:59 Intake Total 830 / 830 140 / 140 Output Total 1800 / 1800 Balance -970 / -970 140 / 140 Assessment/Plan All Active Problems (Last Reviewed 05/26/20 @ 19:[address] Cabrera Arzola, DO) CHF exacerbation (Acute) Septic shock (Acute) Abdominal wall cellulitis (Acute) Liliana Gold is a 60-year-old male who resides at [facility] for management of extensive left abdominal wound. He presented to ER with exacerbation of COPD and heart failure and has been referred to [facility] for symptom management for dyspnea and chronic pain. Patient is agreeable to Palliative services following discharge to [facility]. Plan is as follows: 1) Dyspnea: Encourage compliance with Pulmonary visits and current medications and inhalers for better management of COPD and CHF. Encourage 1800 christal diet and weight loss to encourage mobility, better management of chronic conditions and increased quality of life. 2) Chronic pain related to DDD lumbar of the spine and OA: Currently gets shoulder injections with Dr. Rios's office but states minimal effect. Currently takes Oxycodone 5mg every 6 hours PRN. Has not had any in the last 24 hours. Palliative will follow and titrate for effective pain relief. Patient is understanding that only Palliative can prescribe Opioids if brought on services. 3) Wound care and chronic conditions: follow up with PCP and wound care Thank you for the opportunity to serve your patients! [facility] Team [phone] TIME IN: 9:05 AM TIME OUT:10:32AM This note was generated with [employer] dictation software. It may contain incorrect words, spelling, and punctuation that were not noted in checking the note before signing.
[2020-05-28] MEDS: Pantoprazole Sodium 40 MG Tablet PO ×2 (09:33→22:04)
[2020-05-28] MEDS: Cyanocobalamin 500 MCG Tablet 1000 MCG PO (09:33)
[2020-05-28] MEDS: Multivitamins,Ther W-Minerals Tablet 2 TABLET PO (09:33)
[2020-05-28] MEDS: buPROPion 100 MG Tablet PO (09:33)
[2020-05-28] MEDS: Enoxaparin 40 MG/0.4 ML Syringe SC ×2 (09:33→22:04)
[2020-05-28] MEDS: Sertraline 50 MG Tablet PO (09:33)
[2020-05-28] MEDS: Amiodarone 200 MG Tablet PO (09:35)
[2020-05-28] MEDS: Carvedilol 3.125 MG TABLET PO (09:35)
[2020-05-28] MEDS: Docusate Sodium 100 MG Capsule PO ×2 (09:35→22:04)
[2020-05-28] MEDS: Furosemide 40 MG/4 ML Vial IV ×3 (09:36→22:15)
--- NOTE | 2020-05-28 09:53 | NURSING ---
wound VAC dressing in place to the left lower abdomen. Good seal noted at 150mmHg low continuous suction. Dressing will need changed again 05/29/20 unless patient is discharged back to the [facility]. When patient is discharged, the wound VAC dressing will need to be removed and a wet to dry dressing placed. [facility] will reapply the VAC.
--- NOTE | 2020-05-28 10:47 | CASEMGMT ---
Patient is not ready for discharge today. BEATRICE spoke with Cheyenne at [facility] and let her know patient is not ready today, but maybe tomorrow. BEATRICE put a green sheet on patient's chart with instructions on discharge back to [facility]. Plan: d/c back to [facility] under skilled level of care. [facility] will transport via cot. Lesly NAIK
--- NOTE | 2020-05-28 12:10 | PCM.PN.HOSP ---
<Lawrence Engel - Last Filed: 05/28/20 12:44> Patient Problems: Active and Suspected Problems (Last Reviewed 05/26/20 @ 19:[address] Cabrera Arzola DO) CHF exacerbation (Acute) Septic shock (Acute) Abdominal wall cellulitis (Acute) Reason for Visit: Acute on chronic CHF exacerbation. Subjective: This is a 60 y/o male who was admitted to the hospital for CHF exacerbation. Prior to admission, patient had been increasing the use of his BiPAP machine due to SOB, and a non productive dry cough. Patient's shortness of breath has resumed with activity. Shortness of breath resolves when activity ceases and supplemental oxygen is supplied. Patient still reports feeling like he is fluid overloaded. Vitals/I&O's: Vital Signs Temp Pulse Resp BP Pulse Ox 98.3 F 79 18 99/65 98 05/28/20 09:10 05/28/20 09:10 05/28/20 09:10 05/28/20 09:10 05/28/20 09:10 Oxygen Flow Rate (L/min) 2 Oxygen Delivery Method Nasal Cannula Weight: 459 lb 0.038 oz Body Mass Index (BMI) 73.5 Intake and Output for Last 24 Hours 05/26/20 05/27/20 05/28/20 23:59 23:59 23:59 Intake Total 830 / 830 140 / 140 Output Total 1800 / 1800 Balance -970 / -970 140 / 140 General: Alert, Oriented x3, Cooperative HEENT: Atraumatic, PERRLA, EOMI, Normocephalic Neck: - - Neck difficult to examine due to patient's large body habitus. Lungs: Diminished, Short of Breath - Shortness of breath with activity. Cardiovascular: Regular rate, No murmurs Abdomen: Obese, - - Difficult to perform abdominal examination due to patient's large body habitus. Large wound on the lower left abdomen. Extremities: Diminished Peripheral Pulses, Edema, - - Dark pigmentation to ankles bilaterally Skin: Ulcer/ Wound - Large wound on the lower left abdomen. No redness heat or pain around wound. Musculoskeletal: No Tenderness to Palpation of Joints or Extremities, - - Musculature not evident due to patient's large body habitus. Neurological: Cranial nerves II-XII grossly intact Current Medications Acetaminophen (Acetaminophen 325 Mg Tablet) 650 mg PO Q6H PRN PRN PRN Reason: Pain Score 1-10/Temp > 100.7 F Amiodarone HCl (Amiodarone 200 Mg Tablet) 200 mg PO DAILY [facility] Last Admin: 05/28/20 09:35 Dose: 200 mg Documented by: Bupropion HCl (Bupropion 100 Mg Tablet) 100 mg PO DAILY [facility] Last Admin: 05/28/20 09:33 Dose: 100 mg Documented by: Carvedilol (Carvedilol 3.125 Mg Tablet) 3.125 mg PO BID [facility] Last Admin: 05/28/20 09:35 Dose: 3.125 mg Documented by: Cholecalciferol (Cholecalciferol (Vit D3) 1,000 Unit (25mcg)) 3,000 unit PO DAILY [facility] Last Admin: 05/28/20 09:34 Dose: 3,000 unit Documented by: Cyanocobalamin (Cyanocobalamin 500 Mcg Tablet) 1,000 mcg PO DAILY [facility] Last Admin: 05/28/20 09:33 Dose: 1,000 mcg Documented by: Docusate Sodium (Docusate Sodium 100 Mg Capsule) 100 mg PO BID [facility] Last Admin: 05/28/20 09:35 Dose: 100 mg Documented by: Enoxaparin Sodium (Enoxaparin 40 Mg/0.4 Ml Syringe) 40 mg SC BID [facility] Last Admin: 05/28/20 09:33 Dose: 40 mg Documented by: Furosemide (Furosemide 40 Mg/4 Ml Vial) 40 mg IV Q8 [facility] Levothyroxine Sodium (Levothyroxine 25 Mcg Tablet) 25 mcg PO DAILY@0600 [facility] Last Admin: 05/28/20 05:18 Dose: 25 mcg Documented by: Multivitamins/Minerals (Multivitamins,Ther W-Minerals Tablet) 2 tablet PO DAILY@0800 [facility] Last Admin: 05/28/20 09:33 Dose: 2 tablet Documented by: Nystatin (Nystatin Powder 15gm Bottle) 1 applic TOPICAL TID [facility]; Protocol Last Admin: 05/28/20 05:19 Dose: 1 applicatio Documented by: Ondansetron HCl (Ondansetron 4 Mg/2 Ml Vial) 4 mg IV Q8H PRN PRN PRN Reason: NAUSEA/VOMITING Oxycodone HCl (Oxycodone 5 Mg Tablet) 5 mg PO Q6H PRN PRN Reason: Pain Score 1-10 Last Admin: 05/26/20 22:55 Dose: 5 mg Documented by: Pantoprazole Sodium (Pantoprazole Sodium 40 Mg Tablet) 40 mg PO BID [facility] Last Admin: 05/28/20 09:33 Dose: 40 mg Documented by: Sertraline HCl (Sertraline 50 Mg Tablet) 50 mg PO DAILY [facility] Last Admin: 05/28/20 09:33 Dose: 50 mg Documented by: Sodium Chloride (0.9% Saline Lock 10 Ml Syringe) 10 - 40 ml IV UD PRN PRN Reason: SALINE FLUSH Last Admin: 05/27/20 21:15 Dose: 10 ml Documented by: Zolpidem Tartrate (Zolpidem Tartrate 5 Mg Tablet) 10 mg PO QHS [facility] Last Admin: 05/27/20 21:20 Dose: 10 mg Documented by: STROKE Vital Signs/Narrative: Vital Signs Temp Pulse Resp BP Pulse Ox 05/28/20 09:10 98.3 F 79 18 99/65 98 Medical Necessity - Tobacco Use Smoking Status: Never smoker Tobacco Use: Secondhand Assessment/Plan All Active Problems (Last Reviewed 05/26/20 @ 19:[address] Cabrera Arzola, DO) CHF exacerbation (Acute) Septic shock (Acute) Abdominal wall cellulitis (Acute) Mr. Gold is a 60 y/o male who was admitted due to an acute CHF exacerbation which is causing SOB, a non-productive dry cough, and more frequent use of his BiPAP machine. Patient reported yesterday that his shortness of breath had improved, however, patient notes that shortness of breath has returned with activity. Patient's weight dropped from 461 pounds to 459 pounds today. Despite small weight change, patient is still fluid overloaded. Patient did not respond to second bolus of Lasix. Lasix will be increased to every 8 hours. 1) Acute on chronic CHF exacerbation; Asessment - Remains fluid overloaded per daily weights and physical exam. - I/O 830 ml/1800ml - Weight 459lbs, decreased 2 lbs since yesterday. - Blood pressure 99/65mmHg as of 0910 05/28/20. Plan - Increase bolus of Lasix to Q8 hours. - Remain admitted overnight. - Blood pressure parameters ordered - -Anticipate discharge tomorrow. 2) Open would, abdominal wall, lateral Assessment - Wound VAC in place -No erythema, tenderness, or heat around wound Plan - Wound nurse monitoring. 3) Morbid obesity Assessment - Current weight is 461 lbs - BMI 77.2 Plan - 1800 calorie diet ordered while admitted. - Dietitian consulted. 4) TEX Assessment - Managed outpatient on BiPAP machine Plan - Use BiPAP at night, as needed. 5) Anxiety and Depression Assessment - Monitored outpatient Plan - Continue outpatient management of Bupropion, Sertraline, and Ambien 6) Hyperlipidemia Assessment - Triglycerides, Cholesterol, LDL, VLDL are within normal limits - HDL cholesterol low Plan - Follow up with Primary care provider. 7) DDD of the Lumbar spine Assessment - Managed outpatient Plan - Continue with PRN oxycodone, per outpatient management. 8) Benign essential hypertension - Stable 9) COPD - Stable VTE prophylaxis with Lovenox SC. <PainmarkPepin - Last Filed: 05/28/20 15:24> Vitals/I&O's: Vital Signs Temp Pulse Resp BP Pulse Ox 98.8 F 80 18 98/70 98 05/28/20 13:52 05/28/20 13:52 05/28/20 13:52 05/28/20 13:52 05/28/20 13:52 Oxygen Flow Rate (L/min) 2 Oxygen Delivery Method Nasal Cannula Weight: 208.2 kg Body Mass Index (BMI) 73.5 Intake and Output for Last 24 Hours 05/26/20 05/27/20 05/28/20 23:59 23:59 23:59 Intake Total 830 / 830 340 / 340 Output Total 1800 / 1800 Balance -970 / -970 340 / 340 Current Medications Acetaminophen (Acetaminophen 325 Mg Tablet) 650 mg PO Q6H PRN PRN PRN Reason: Pain Score 1-10/Temp > 100.7 F Amiodarone HCl (Amiodarone 200 Mg Tablet) 200 mg PO DAILY [facility] Last Admin: 05/28/20 09:35 Dose: 200 mg Documented by: Bupropion HCl (Bupropion 100 Mg Tablet) 100 mg PO DAILY [facility] Last Admin: 05/28/20 09:33 Dose: 100 mg Documented by: Carvedilol (Carvedilol 3.125 Mg Tablet) 3.125 mg PO BID [facility] Last Admin: 05/28/20 09:35 Dose: 3.125 mg Documented by: Cholecalciferol (Cholecalciferol (Vit D3) 1,000 Unit (25mcg)) 3,000 unit PO DAILY [facility] Last Admin: 05/28/20 09:34 Dose: 3,000 unit Documented by: Cyanocobalamin (Cyanocobalamin 500 Mcg Tablet) 1,000 mcg PO DAILY [facility] Last Admin: 05/28/20 09:33 Dose: 1,000 mcg Documented by: Docusate Sodium (Docusate Sodium 100 Mg Capsule) 100 mg PO BID [facility] Last Admin: 05/28/20 09:35 Dose: 100 mg Documented by: Enoxaparin Sodium (Enoxaparin 40 Mg/0.4 Ml Syringe) 40 mg SC BID [facility] Last Admin: 05/28/20 09:33 Dose: 40 mg Documented by: Furosemide (Furosemide 40 Mg/4 Ml Vial) 40 mg IV Q8 [facility] Last Admin: 05/28/20 14:47 Dose: 40 mg Documented by: Levothyroxine Sodium (Levothyroxine 25 Mcg Tablet) 25 mcg PO DAILY@0600 [facility] Last Admin: 05/28/20 05:18 Dose: 25 mcg Documented by: Multivitamins/Minerals (Multivitamins,Ther W-Minerals Tablet) 2 tablet PO DAILY@0800 [facility] Last Admin: 05/28/20 09:33 Dose: 2 tablet Documented by: Nystatin (Nystatin Powder 15gm Bottle) 1 applic TOPICAL TID [facility]; Protocol Last Admin: 05/28/20 14:44 Dose: 1 applicatio Documented by: Ondansetron HCl (Ondansetron 4 Mg/2 Ml Vial) 4 mg IV Q8H PRN PRN PRN Reason: NAUSEA/VOMITING Oxycodone HCl (Oxycodone 5 Mg Tablet) 5 mg PO Q6H PRN PRN Reason: Pain Score 1-10 Last Admin: 05/26/20 22:55 Dose: 5 mg Documented by: Pantoprazole Sodium (Pantoprazole Sodium 40 Mg Tablet) 40 mg PO BID [facility] Last Admin: 05/28/20 09:33 Dose: 40 mg Documented by: Sertraline HCl (Sertraline 50 Mg Tablet) 50 mg PO DAILY [facility] Last Admin: 05/28/20 09:33 Dose: 50 mg Documented by: Sodium Chloride (0.9% Saline Lock 10 Ml Syringe) 10 - 40 ml IV UD PRN PRN Reason: SALINE FLUSH Last Admin: 05/27/20 21:15 Dose: 10 ml Documented by: Zolpidem Tartrate (Zolpidem Tartrate 5 Mg Tablet) 10 mg PO QHS [facility] Last Admin: 05/27/20 21:20 Dose: 10 mg Documented by: STROKE Vital Signs/Narrative: Vital Signs Temp Pulse Resp BP Pulse Ox 05/28/20 13:52 98.8 F 80 18 98/70 98 Assessment/Plan This patient was seen in conjunction with MEJIA Najera. I have independently interviewed and examined the patient and reviewed pertinent historical, laboratory, and other data. Please refer to MEJIA Najera's note for his patient's presentation, findings, and recommendations. I have reviewed and his note and concur with his documentation Patient was seen and examined. He feels about the same. No other acute events overnight. His weights have not changed much Physical Exam: Gen: Super morbidly obese, not pale, not jaundiced CVS:HS I +II, regular, no murmurs RESP: Diminished at lung bases GI: BS present and normal, soft, nontender, no palpable organs, wound vac to abdomen EXT: Bilateral leg edema, +1-2 ASSESSMENT: 1. Acute on chronic systolic CHF, previous EF of 35% 2. TEX on BiPAP 3. Super morbid obesity 4. Open wound to the lateral abdominal wall, status post wound vac 5. Hypertension 6. Hyperlipidemia 7. Anxiety/depression Plan: Continue on CHF protocol with Lasix Continue to encourage use of BiPAP Repeat renal function in am Inpatient E&M: [id number] [facility] L2
--- NOTE | 2020-05-28 19:51 | CPS ---
Patient reported that he wears 2L bled into home BiPAP machine. This will therefore be continued at night while in hospital. 2L O2 bled into home BiPAP machine.
[2020-05-28] MEDS: Zolpidem Tartrate 5 MG Tablet 10 MG PO (22:03)
[2020-05-29 02:20] VITALS: BP 109/72; PULSE 75; RESP 16; TEMP 36.2; O2SAT 94
[2020-05-29] MEDS: Nystatin Powder 15gm Bottle 1 APPLIC TOPICAL ×2 (06:29→14:36)
[2020-05-29] MEDS: Levothyroxine 25 MCG TABLET PO (06:29)
[2020-05-29] MEDS: Furosemide 40 MG/4 ML Vial IV ×2 (06:30→14:36)
[2020-05-29 08:00] VITALS: BP 100/58; PULSE 62; RESP 18; TEMP 36.4; O2SAT 94
[2020-05-29 08:04] LABS: Absolute Lymphocyte Count 0.56 X10^3/uL (0.83-4.51); Absolute Neutrophil Count 4.4 X10^3/uL (2.0-7.7); Basophil# 0.03 X10^3/uL; Basophil% 0.5 % (0-1); Eosinophil# 0.11 X10^3/uL; Eosinophils% 1.8 % (0-5); Hematocrit 31.6 % (40-54); Hemoglobin 9.2 g/dL (13.0-16.5); Lymphocyte # 0.56 X10^3/ul (4.0); Lymphocyte % 9.1 % (19-41); Mean Corp Hgb Conc 29.1 g/dL (32-36); Mean Corpuscular Hgb 27.9 pg (27.0-32.0); Mean Corpuscular Volume 95.8 fL (80-94); Mean Platelet Vol. 10.8 fl (6.2-12.0); Monocyte# 1.02 X10^3/uL; Monocyte% 16.6 % (0-10); NRBC Flagged by Analyzer 1.5 % (0-5); Neutrophil % 71.5 % (47-70); POSITIVE DIFFERENTIAL YES; POSITIVE MORPHOLOGY YES; Platelet Count 290 K/mm3 (150-450); RBC Distribution Width CV 19.2 % (11.6-14.6); RBC Distribution Width SD 66.6 fl (35.1-43.9); White Blood Count 6.2 K/mm3 (4.4-11.0)
[2020-05-29 08:06] LABS: Differential Indicated SCAN CRITERIA MET
[2020-05-29 08:13] LABS: Anion Gap 5 (5-15); BUN 32 mg/dL (7-18); BUN/Creat Ratio 29.4 RATIO (10-20); Calcium,Total 8.4 mg/dL (8.5-10.1); Chloride 107 mmol/L (98-107); Creatinine, Serum 1.09 mg/dL (0.70-1.30); EST Glomerular Filtration Rate 73 mL/min (>60); Est Glom Filt Rate - Afr Amer 89 mL/min (>60); Estimated Creatinine Clearance 65.04 ml/min; Glucose 67 mg/dL (74-106); Potassium 3.7 mmol/L (3.5-5.1); Sodium Level 130 mmol/L (136-145)
[2020-05-29 08:58] LABS: Anisocytosis 2+; Differential Comment SCANNED; Macrocytosis 1+; Microcytosis 1+
[2020-05-29] MEDS: 0.9% Saline Lock 10 ML Syringe IV (09:48)
[2020-05-29] MEDS: Docusate Sodium 100 MG Capsule PO (09:49)
[2020-05-29] MEDS: Multivitamins,Ther W-Minerals Tablet 2 TABLET PO (09:49)
[2020-05-29] MEDS: Carvedilol 3.125 MG TABLET PO (09:50)
[2020-05-29] MEDS: Amiodarone 200 MG Tablet PO (09:50)
[2020-05-29] MEDS: Enoxaparin 40 MG/0.4 ML Syringe SC (09:50)
[2020-05-29] MEDS: Cyanocobalamin 500 MCG Tablet 1000 MCG PO (09:51)
[2020-05-29] MEDS: Pantoprazole Sodium 40 MG Tablet PO (09:51)
[2020-05-29] MEDS: Sertraline 50 MG Tablet PO (09:52)
[2020-05-29] MEDS: buPROPion 100 MG Tablet PO (09:52)
[2020-05-29 10:00] VITALS: RESP 18
--- NOTE | 2020-05-29 10:12 | DCINST_ITS ---
- Discharge Diagnoses Current Active Problems: Current Active and Chronic Problems (Last Reviewed 05/26/20 @ 19:[address] Cabrera Arzola, DO) CHF exacerbation (Acute) Septic shock (Acute) Abdominal wall cellulitis (Acute) Ulcer of abdomen wall with fat layer exposed (Chronic) Morbid obesity (Chronic) Open wound, abdominal wall, lateral (Chronic) Lumbar back pain (Chronic) from weight of massive abdominal panniculus Ventral hernia (Chronic) laparoscopic repair 2 years ago with mesh Intertrigo (Chronic) abdominal wall skin crease intertrigo Recent weight loss (Chronic) about 100 lbs Panniculitis (Chronic) Abdominal panniculus, symptomatic (Chronic) Presence of implantable cardioverter-defibrillator (ICD) (Chronic) History of radiofrequency ablation (RFA) procedure for cardiac arrhythmia (Chronic) 2007 @ [facility] per Dr. Lange, 2009 @ [facility] for WPW with success. 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) Rotator cuff tear (Chronic) COPD (chronic obstructive pulmonary disease) (Chronic) Anxiety and depression (Chronic) Diastolic heart failure (Chronic) TEX (obstructive sleep apnea) (Chronic) Hyperlipidemia (Chronic) Benign essential hypertension (Chronic) Rheumatoid arthritis (Chronic) dilated right ventricle (Chronic) Cardiomyopathy (Chronic) Super obesity (Chronic) Atrial fibrillation (Chronic) Reason(s) for Visit for Discharge Instructions: CHF exacerbation You will use the following diet at home:: Fluid restricted (specify 2000 mls, 1500 mls) - 1250 mls Your food should be the consistency of: Regular Your liquids should be the consistency of: Regular/Thin Discharge Activity: Return to Normal Activity Call your doctor if your incision/area has: Continuous Slow Oozing, Sudden Increased Bleeding, Increased Pain/ Swelling, Increased Redness, Foul Smelling Discharge Call your doctor if you observe: Fever of 101 or Higher, Shortness of breath, Dizziness, Fainting spells, Chest pain, Increased palpitations (irregular heartbeat), Calf discomfort Allergies/Adverse Reactions: Allergies latex Allergy (Verified 05/26/20 16:49) Rash warfarin sodium [From Coumadin] Adverse Reaction (Verified 05/26/20 16:49) Other caused 2 holes in lungs and chest, advised to never take again Medications to take at Discharge Bupropion HCl 100 mg PO DAILY 05/02/14 Nitroglycerin (INPATIENT USE) [Nitrostat] 0.4 mg SUBLINGUAL Q5M PRN 07/17/14 Cyanocobalamin (Vitamin B-12) [Vitamin B-12] 1,000 mcg PO DAILY 05/08/18 Multivitamin with Minerals [Multiple Vitamin] 2 tab PO DAILY 05/08/18 levothyroxine 25 mcg tablet 25 mcg PO DAILY 05/22/19 Pantoprazole Sodium [Protonix] 40 mg PO BID tab 11/23/19 Zolpidem Tartrate [Ambien] 10 mg PO QHS 03/16/20 Oxycodone HCl 5 mg PO Q6H PRN 03/31/20 Amiodarone HCl [Cordarone] 200 mg PO DAILY 05/26/20 Carvedilol 3.125 mg PO BID 05/26/20 Cholecalciferol (Vitamin D3) [Vitamin D3] 3,000 unit PO DAILY 05/26/20 Docusate Sodium [Colace] 100 mg PO BID 05/26/20 Furosemide [Lasix] 40 mg PO DAILY 05/26/20 Lactobacillus Rhamnosus GG [Culturelle] 1 cap PO BID 05/26/20 Sertraline HCl [Zoloft] 50 mg PO DAILY 05/26/20 Primary Care Physician: Esteban Tim Chi, MD [Primary Care Provider] - Please follow up with your Primary Care Physician in: Within the next week Test Results: Test results from this visit will be discussed in further detail at your follow- up appointment, if applicable.
--- NOTE | 2020-05-29 10:54 | PCM.TXEXTCAR ---
<Lawrence Engel - Last Filed: 05/29/20 10:54> - Diet 05/26/20 20:14 Diet: Cardiac: Calorie-Controlled Food consistency:: Regular Liquid Consistency:: Regular/Thin Type of Dietary Supplement:: Danish Diet Comments: breakfast and dinner How many daily calories?: 1600 calorie - Wound(s) Left Abdominal wall Wound Type: Surgical Incision Dressing Change: applied KCI wound VAC - Allergies/Procedures Done in Hospital Allergies/Adverse Reactions: Allergies latex Allergy (Verified 05/26/20 16:49) Rash warfarin sodium [From Coumadin] Adverse Reaction (Verified 05/26/20 16:49) Other caused 2 holes in lungs and chest, advised to never take again - Type of Care/Length of Stay Estimated LOS: More Than 30 Days Type of Care Needed: Skilled Rehab Potential: Fair Prognosis: Fair - Additional Orders/Day of Discharge Day of Discharge: 05/29/20 - Dietary and Speech Recommendations Dietitian Recommendations/Changes: will decrease to 1600 calories/day; continue cardiac diet w/ fluid restriction (to 1000 - 1500mls per clinician judgement); will add Danish BID for wound healing. - Follow Up Care Primary Care Physician: Esteban Tim Chi, MD [Primary Care Provider] - Please follow up with your Primary Care Physician in: Within the next week <Julianna Moura - Last Filed: 05/29/20 11:02> - Diet 05/26/20 20:14 Diet: Cardiac: Calorie-Controlled Food consistency:: Regular Liquid Consistency:: Regular/Thin Type of Dietary Supplement:: Danish Diet Comments: breakfast and dinner How many daily calories?: 1600 calorie - Additional Orders/Day of Discharge Additional Orders: Continue to weigh patient everyday. Follow on CHF protocol with fluid restriction. Continue to use Bipap for sleep and naps. May adjust Lasix according to weight. Continue with wound vac
--- NOTE | 2020-05-29 10:59 | PCM.DC.SUM ---
<Lawrence Engel - Last Filed: 05/29/20 10:59> Discharge Date and Diagnosis - Problem List Patient Problems: Active and Suspected Problems (Last Reviewed 05/26/20 @ 19:[address] Cabrera Arzola DO) CHF exacerbation (Acute) Septic shock (Acute) Abdominal wall cellulitis (Acute) Date of Admission: 05/28/20 Date of Discharge: 05/29/20 - Primary Discharge Diagnosis Acute Problems: Active Problems (Last Reviewed 05/26/20 @ 19:[address] Cabrera Arzola DO) CHF exacerbation (Acute) Septic shock (Acute) Abdominal wall cellulitis (Acute) - Secondary Discharge Diagnosis Chronic Problems: Chronic Problems (Last Reviewed 05/26/20 @ 19:[address] Cabrera Arzola DO) Ulcer of abdomen wall with fat layer exposed (Chronic) Morbid obesity (Chronic) Open wound, abdominal wall, lateral (Chronic) Lumbar back pain (Chronic) from weight of massive abdominal panniculus Ventral hernia (Chronic) laparoscopic repair 2 years ago with mesh Intertrigo (Chronic) abdominal wall skin crease intertrigo Recent weight loss (Chronic) about 100 lbs Panniculitis (Chronic) Abdominal panniculus, symptomatic (Chronic) Presence of implantable cardioverter-defibrillator (ICD) (Chronic) History of radiofrequency ablation (RFA) procedure for cardiac arrhythmia (Chronic) 2007 @ [facility] per Dr. Lange, 2009 @ [facility] for WPW with success. 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 Electronically Signed: Filipe Pizano MD at 17:35 EST Tel , Service support , Laboratory Results 05/29/20 05/29/20 06:40 06:40 WBC 6.2 RBC 3.30 L Hgb 9.2 L Hct 31.6 L MCV 95.8 H MCH 27.9 MCHC 29.1 L RDW Std Deviation 66.6 H RDW Coeff of Florina 19.2 H Plt Count 290 MPV 10.8 Immature Gran % (Auto) 0.500 Neut % (Auto) 71.5 H Lymph % (Auto) 9.1 L [place] % (Auto) 16.6 H Eos % (Auto) 1.8 Baso % (Auto) 0.5 Absolute Neuts (auto) 4.4 Absolute Lymphs (auto) 0.56 L Nucleated RBC % 1.5 Differential Comment SCANNED Anisocytosis 2+ Microcytosis 1+ Macrocytosis 1+ Sodium 130 L Potassium 3.7 Chloride 107 Carbon Dioxide 18.0 L Anion Gap 5 BUN 32 H Creatinine 1.09 Estim Creat Clear Calc 65.04 Est GFR (MDRD) Af Amer 89 Est GFR (MDRD) Non-Af 73 BUN/Creatinine Ratio 29.4 H Glucose 67 L Calcium 8.4 L Consultations 05/26/20 20:14 Consult: Onc/Wound/panelboard tank pumper Routine Comment: Reason for Consult:: wound vac in place Operations: None Procedures: Wound vac placement - Placed on 05/27/2020 Summary of Care Provided: Mr. Gold is a 60 y/o male who was admitted due to an acute CHF exacerbation which is causing SOB, a non-productive dry cough, and more frequent use of his BiPAP machine. BNP was 1080 on admission. Patient reports that his SOB has improved since admission and was able to communicate in complete sentences on exam. Patient still reports feeling like he is fluid overloaded. Patient weight has improved from a high of 461 pounds taken on 05/27/2020 and is now 456 pounds today. Recommended continued use of 40 mg of Lasix PO BID until patient is at baseline. No evidence of kidney damage per creatinine over course of hospital stay. Blood pressure parameters placed; hold Coreg if systolic blood BP less than 100. 1) Acute on chronic CHF exacerbation; Asessment - Remains fluid overloaded per daily weights and physical exam. - I/O 300ml/375ml - Weight 456 lbs, decrease of 5 pounds from yesterday. - V/S stable - No elevations in Creatinine over course of hospital stay. Plan - Prescribed 40mg of Lasix PO BID x 30 days. - Discharged today. 2) Open wound, abdominal wall, lateral Assessment - Wound VAC in place Plan - Continue with Wound VAC management at . 3) Morbid obesity Assessment - Current weight is 456 lbs - BMI 73.6 Plan - 1800 calorie diet ordered while admitted. - Dietitian consulted. 4) TEX Assessment - Managed outpatient on BiPAP machine Plan - Use BiPAP at while sleeping or napping 5) Anxiety and Depression Assessment - Monitored outpatient Plan - Continue outpatient management of Bupropion, Sertraline, and Ambien 6) Hyperlipidemia Assessment - Triglycerides, Cholesterol, LDL, VLDL are within normal limits - HDL cholesterol low Plan - Follow up with Primary care provider. 7) DDD of the Lumbar spine Assessment - Managed outpatient Plan - Continue with PRN oxycodone, per outpatient management. 8) Benign essential hypertension - Stable 9) COPD - Stable VTE prophylaxis with Lovenox SC. Patient Problems: Active and Suspected Problems (Last Reviewed 05/26/20 @ 19:[address] Cabrera Arzola, DO) CHF exacerbation (Acute) Septic shock (Acute) Abdominal wall cellulitis (Acute) - Physical Exam Vitals/I&O's: Vital Signs Temp Pulse Resp BP Pulse Ox 97.6 F L 62 18 100/58 L 94 05/29/20 08:00 05/29/20 08:00 05/29/20 08:00 05/29/20 08:00 05/29/20 08:00 Oxygen Flow Rate (L/min) 2 Oxygen Delivery Method CPAP Weight: 456 lb 5.71 oz Body Mass Index (BMI) 73.5 Intake and Output for Last 24 Hours 05/27/20 05/28/20 05/29/20 23:59 23:59 23:59 Intake Total 830 / 830 690 / 840 300 / 300 Output Total 1800 / 1800 150 / 150 375 / 375 Balance -970 / -970 540 / 690 -75 / -75 General: Alert, Oriented x3, Cooperative HEENT: Atraumatic, PERRLA, EOMI, Normocephalic Neck: - - Unable to evaluate due to patient body habitus Lungs: Diminished Cardiovascular: Regular rate Abdomen: Obese, - - Fluid overloaded. Wound lower left abdominal wall. Extremities: Diminished Peripheral Pulses, Edema, - - Dark pigmentation to ankles bilaterally Skin: Ulcer/ Wound - Wound VAC in place. No erythema, tenderness, or discharge observed around wound VAC Musculoskeletal: - - Unable to evaluate due to patient's large body habitus. Neurological: Cranial nerves II-XII grossly intact Psych/Mental Status: Normal Affect, Appropriate Laboratory Results 05/29/20 06:40: WBC 6.2, RBC 3.30 L, Hgb 9.2 L, Hct 31.6 L, MCV 95.8 H, MCH 27.9, MCHC 29.1 L, RDW Std Deviation 66.6 H, RDW Coeff of Florina 19.2 H, Plt Count 290, MPV 10.8, Immature Gran % (Auto) 0.500, Neut % (Auto) 71.5 H, Lymph % (Auto) 9.1 L, [place] % (Auto) 16.6 H, Eos % (Auto) 1.8, Baso % (Auto) 0.5, Absolute Neuts (auto) 4.4, Absolute Lymphs (auto) 0.56 L, Nucleated RBC % 1.5, Differential Comment SCANNED, Anisocytosis 2+, Microcytosis 1+, Macrocytosis 1+ 05/29/20 06:40: Sodium 130 L, Potassium 3.7, Chloride 107, Carbon Dioxide 18.0 L, Anion Gap 5, BUN 32 H, Creatinine 1.09, Estim Creat Clear Calc 65.04, Est GFR (MDRD) Af Amer 89, Est GFR (MDRD) Non-Af 73, BUN/Creatinine Ratio 29.4 H, Glucose 67 L, Calcium 8.4 L Current Medications Acetaminophen (Acetaminophen 325 Mg Tablet) 650 mg PO Q6H PRN PRN PRN Reason: Pain Score 1-10/Temp > 100.7 F Amiodarone HCl (Amiodarone 200 Mg Tablet) 200 mg PO DAILY [facility] Last Admin: 05/29/20 09:50 Dose: 200 mg Documented by: Bupropion HCl (Bupropion 100 Mg Tablet) 100 mg PO DAILY [facility] Last Admin: 05/29/20 09:52 Dose: 100 mg Documented by: Carvedilol (Carvedilol 3.125 Mg Tablet) 3.125 mg PO BID [facility] Last Admin: 05/29/20 09:50 Dose: 3.125 mg Documented by: Cholecalciferol (Cholecalciferol (Vit D3) 1,000 Unit (25mcg)) 3,000 unit PO DAILY [facility] Last Admin: 05/29/20 09:51 Dose: 3,000 unit Documented by: Cyanocobalamin (Cyanocobalamin 500 Mcg Tablet) 1,000 mcg PO DAILY [facility] Last Admin: 05/29/20 09:51 Dose: 1,000 mcg Documented by: Docusate Sodium (Docusate Sodium 100 Mg Capsule) 100 mg PO BID [facility] Last Admin: 05/29/20 09:49 Dose: 100 mg Documented by: Enoxaparin Sodium (Enoxaparin 40 Mg/0.4 Ml Syringe) 40 mg SC BID [facility] Last Admin: 05/29/20 09:50 Dose: 40 mg Documented by: Furosemide (Furosemide 40 Mg/4 Ml Vial) 40 mg IV Q8 [facility] Last Admin: 05/29/20 06:30 Dose: 40 mg Documented by: Levothyroxine Sodium (Levothyroxine 25 Mcg Tablet) 25 mcg PO DAILY@0600 [facility] Last Admin: 05/29/20 06:29 Dose: 25 mcg Documented by: Multivitamins/Minerals (Multivitamins,Ther W-Minerals Tablet) 2 tablet PO DAILY@0800 [facility] Last Admin: 05/29/20 09:49 Dose: 2 tablet Documented by: Nystatin (Nystatin Powder 15gm Bottle) 1 applic TOPICAL TID [facility]; Protocol Last Admin: 05/29/20 06:29 Dose: 1 applicatio Documented by: Ondansetron HCl (Ondansetron 4 Mg/2 Ml Vial) 4 mg IV Q8H PRN PRN PRN Reason: NAUSEA/VOMITING Oxycodone HCl (Oxycodone 5 Mg Tablet) 5 mg PO Q6H PRN PRN Reason: Pain Score 1-10 Last Admin: 05/26/20 22:55 Dose: 5 mg Documented by: Pantoprazole Sodium (Pantoprazole Sodium 40 Mg Tablet) 40 mg PO BID [facility] Last Admin: 05/29/20 09:51 Dose: 40 mg Documented by: Sertraline HCl (Sertraline 50 Mg Tablet) 50 mg PO DAILY [facility] Last Admin: 05/29/20 09:52 Dose: 50 mg Documented by: Sodium Chloride (0.9% Saline Lock 10 Ml Syringe) 10 - 40 ml IV UD PRN PRN Reason: SALINE FLUSH Last Admin: 05/29/20 09:48 Dose: 10 ml Documented by: Zolpidem Tartrate (Zolpidem Tartrate 5 Mg Tablet) 10 mg PO QHS [facility] Last Admin: 05/28/20 22:03 Dose: 10 mg Documented by: Discharge Activity: Return to Normal Activity Call your doctor if your incision/area has: Continuous Slow Oozing, Sudden Increased Bleeding, Increased Pain/ Swelling, Increased Redness, Foul Smelling Discharge Call your doctor if you observe: Fever of 101 or Higher, Shortness of breath, Dizziness, Fainting spells, Chest pain, Increased palpitations (irregular heartbeat), Calf discomfort Home Medications: Medications to take at Discharge Bupropion HCl 100 mg PO DAILY 05/02/14 Nitroglycerin (INPATIENT USE) [Nitrostat] 0.4 mg SUBLINGUAL Q5M PRN 07/17/14 Cyanocobalamin (Vitamin B-12) [Vitamin B-12] 1,000 mcg PO DAILY 05/08/18 Multivitamin with Minerals [Multiple Vitamin] 2 tab PO DAILY 05/08/18 levothyroxine 25 mcg tablet 25 mcg PO DAILY 05/22/19 Pantoprazole Sodium [Protonix] 40 mg PO BID tab 11/23/19 Zolpidem Tartrate [Ambien] 10 mg PO QHS 03/16/20 Oxycodone HCl 5 mg PO Q6H PRN 03/31/20 Amiodarone HCl [Cordarone] 200 mg PO DAILY 05/26/20 Carvedilol 3.125 mg PO BID 05/26/20 Cholecalciferol (Vitamin D3) [Vitamin D3] 3,000 unit PO DAILY 05/26/20 Docusate Sodium [Colace] 100 mg PO BID 05/26/20 Lactobacillus Rhamnosus GG [Culturelle] 1 cap PO BID 05/26/20 Sertraline HCl [Zoloft] 50 mg PO DAILY 05/26/20 Furosemide [Lasix] 40 mg PO BID 30 Days #60 tab 05/29/20 Following Prescriptions Were Given to Patient: Furosemide [Lasix] 40 mg PO BID 30 Days #60 tab Primary Care Physician: Esteban Tim Chi, MD [Primary Care Provider] - Please follow up with your Primary Care Physician in: Within the next week Medical Necessity - Tobacco Use Smoking Status: Never smoker Tobacco Use: Secondhand Meaningful Use Info Meaningful Use Diagnoses (Choose all that apply): None applicable - CHF RHYS/ARB ordered at discharge?: No Reason RHYS/ARB not ordered?: Worsening renal disease - Patient on dialysis within the past year. Nephrology following outpatient. Documented LVEF (%): 35 - Evaluated on 11/06/2018 <Julianna Moura - Last Filed: 05/29/20 13:28> Discharge Date and Diagnosis - Primary Discharge Diagnosis Acute Problems: Active Problems (Last Reviewed 05/26/20 @ 19:[address] Cabrera Arzola DO) CHF exacerbation (Acute) Septic shock (Acute) Abdominal wall cellulitis (Acute) - Secondary Discharge Diagnosis Chronic Problems: Chronic Problems (Last Reviewed 05/26/20 @ 19:[address] Cabrera Arzola DO) Ulcer of abdomen wall with fat layer exposed (Chronic) Morbid obesity (Chronic) Open wound, abdominal wall, lateral (Chronic) Lumbar back pain (Chronic) from weight of massive abdominal panniculus Ventral hernia (Chronic) laparoscopic repair 2 years ago with mesh Intertrigo (Chronic) abdominal wall skin crease intertrigo Recent weight loss (Chronic) about 100 lbs Panniculitis (Chronic) Abdominal panniculus, symptomatic (Chronic) Presence of implantable cardioverter-defibrillator (ICD) (Chronic) History of radiofrequency ablation (RFA) procedure for cardiac arrhythmia (Chronic) 2007 @ [facility] per Dr. Lange, 2009 @ [facility] for WPW with success. 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) Rotator cuff tear (Chronic) COPD (chronic obstructive pulmonary disease) (Chronic) Anxiety and depression (Chronic) Diastolic heart failure (Chronic) TEX (obstructive sleep apnea) (Chronic) Hyperlipidemia (Chronic) Benign essential hypertension (Chronic) Rheumatoid arthritis (Chronic) dilated right ventricle (Chronic) Cardiomyopathy (Chronic) Super obesity (Chronic) Atrial fibrillation (Chronic) Hospital Course and Treatment Consultations 05/26/20 20:14 Consult: Onc/Wound/panelboard tank pumper Routine Comment: Reason for Consult:: wound vac in place Summary of Care Provided: This patient was seen in conjunction with MEJIA Najera. I have independently interviewed and examined the patient and reviewed pertinent historical, laboratory, and other data. Please refer to MEJIA Najera's note for his patient's presentation, findings, and recommendations. I have reviewed and his note and concur with his documentation 60-year-old male with multiple comorbidities including chronic systolic CHF with EF of 5%, super morbid obesity, resident of longterm, TEX on BiPAP comes in with complaints of days of breath and increased use of BiPAP at the longterm. This has been ongoing for about 2 days, associated with weight gain. He denied any nausea or diaphoresis or chest pain stations. Patient work-up was suggestive of acute on chronic CHF exacerbation. His BNP was 1080. Chest x-ray showed poor inspiration with bibasilar atelectasis. Patient was started on Lasix IV twice daily with some improvement. He was continued on his BiPAP. Patient's Lasix was increased to 40 mg every 8. Patient appears to have lost weight in the hospital. He will be discharged back to a [facility] facility to continue CHF management with Lasix 40 mg p.o. twice daily His hospital stay, he was followed up by the wound RN and his wound VAC to the left lateral abdominal wall was continued. There is no evidence of infection. On the day of discharge, patient was seen and examined. Denied any new complaints. Physical Exam: Gen: Super morbidly obese, not pale, not jaundiced CVS:HS I +II, regular, no murmurs RESP: Diminished at lung bases GI: BS present and normal, soft, nontender, no palpable organs, wound vac to abdomen EXT: Bilateral leg edema, +1-2 - Physical Exam Vitals/I&O's: Vital Signs Temp Pulse Resp BP Pulse Ox 98.6 F 61 16 98/55 L 97 05/29/20 11:45 05/29/20 11:45 05/29/20 11:45 05/29/20 11:45 05/29/20 11:45 Oxygen Flow Rate (L/min) 2 Oxygen Delivery Method Nasal Cannula Weight: 207 kg Body Mass Index (BMI) 73.5 Intake and Output for Last 24 Hours 05/27/20 05/28/20 05/29/20 23:59 23:59 23:59 Intake Total 830 / 830 690 / 840 450 / 450 Output Total 1800 / 1800 150 / 150 375 / 375 Balance -970 / -970 540 / 690 75 / 75 Laboratory Results 05/29/20 06:40: WBC 6.2, RBC 3.30 L, Hgb 9.2 L, Hct 31.6 L, MCV 95.8 H, MCH 27.9, MCHC 29.1 L, RDW Std Deviation 66.6 H, RDW Coeff of Florina 19.2 H, Plt Count 290, MPV 10.8, Immature Gran % (Auto) 0.500, Neut % (Auto) 71.5 H, Lymph % (Auto) 9.1 L, [place] % (Auto) 16.6 H, Eos % (Auto) 1.8, Baso % (Auto) 0.5, Absolute Neuts (auto) 4.4, Absolute Lymphs (auto) 0.56 L, Nucleated RBC % 1.5, Differential Comment SCANNED, Anisocytosis 2+, Microcytosis 1+, Macrocytosis 1+ 05/29/20 06:40: Sodium 130 L, Potassium 3.7, Chloride 107, Carbon Dioxide 18.0 L, Anion Gap 5, BUN 32 H, Creatinine 1.09, Estim Creat Clear Calc 65.04, Est GFR (MDRD) Af Amer 89, Est GFR (MDRD) Non-Af 73, BUN/Creatinine Ratio 29.4 H, Glucose 67 L, Calcium 8.4 L Current Medications Acetaminophen (Acetaminophen 325 Mg Tablet) 650 mg PO Q6H PRN PRN PRN Reason: Pain Score 1-10/Temp > 100.7 F Amiodarone HCl (Amiodarone 200 Mg Tablet) 200 mg PO DAILY [facility] Last Admin: 05/29/20 09:50 Dose: 200 mg Documented by: Bupropion HCl (Bupropion 100 Mg Tablet) 100 mg PO DAILY [facility] Last Admin: 05/29/20 09:52 Dose: 100 mg Documented by: Carvedilol (Carvedilol 3.125 Mg Tablet) 3.125 mg PO BID [facility] Last Admin: 05/29/20 09:50 Dose: 3.125 mg Documented by: Cholecalciferol (Cholecalciferol (Vit D3) 1,000 Unit (25mcg)) 3,000 unit PO DAILY [facility] Last Admin: 05/29/20 09:51 Dose: 3,000 unit Documented by: Cyanocobalamin (Cyanocobalamin 500 Mcg Tablet) 1,000 mcg PO DAILY [facility] Last Admin: 05/29/20 09:51 Dose: 1,000 mcg Documented by: Docusate Sodium (Docusate Sodium 100 Mg Capsule) 100 mg PO BID [facility] Last Admin: 05/29/20 09:49 Dose: 100 mg Documented by: Enoxaparin Sodium (Enoxaparin 40 Mg/0.4 Ml Syringe) 40 mg SC BID [facility] Last Admin: 05/29/20 09:50 Dose: 40 mg Documented by: Furosemide (Furosemide 40 Mg/4 Ml Vial) 40 mg IV Q8 [facility] Last Admin: 05/29/20 06:30 Dose: 40 mg Documented by: Levothyroxine Sodium (Levothyroxine 25 Mcg Tablet) 25 mcg PO DAILY@0600 [facility] Last Admin: 05/29/20 06:29 Dose: 25 mcg Documented by: Multivitamins/Minerals (Multivitamins,Ther W-Minerals Tablet) 2 tablet PO DAILY@0800 [facility] Last Admin: 05/29/20 09:49 Dose: 2 tablet Documented by: Nystatin (Nystatin Powder 15gm Bottle) 1 applic TOPICAL TID [facility]; Protocol Last Admin: 05/29/20 06:29 Dose: 1 applicatio Documented by: Ondansetron HCl (Ondansetron 4 Mg/2 Ml Vial) 4 mg IV Q8H PRN PRN PRN Reason: NAUSEA/VOMITING Oxycodone HCl (Oxycodone 5 Mg Tablet) 5 mg PO Q6H PRN PRN Reason: Pain Score 1-10 Last Admin: 05/26/20 22:55 Dose: 5 mg Documented by: Pantoprazole Sodium (Pantoprazole Sodium 40 Mg Tablet) 40 mg PO BID [facility] Last Admin: 05/29/20 09:51 Dose: 40 mg Documented by: Sertraline HCl (Sertraline 50 Mg Tablet) 50 mg PO DAILY [facility] Last Admin: 05/29/20 09:52 Dose: 50 mg Documented by: Sodium Chloride (0.9% Saline Lock 10 Ml Syringe) 10 - 40 ml IV UD PRN PRN Reason: SALINE FLUSH Last Admin: 05/29/20 09:48 Dose: 10 ml Documented by: Zolpidem Tartrate (Zolpidem Tartrate 5 Mg Tablet) 10 mg PO QHS [facility] Last Admin: 05/28/20 22:03 Dose: 10 mg Documented by: Inpatient E&M: [id number] Disch Hosp
[2020-05-29 11:45] VITALS: BP 98/55; PULSE 61; RESP 16; TEMP 37; O2SAT 97
--- NOTE | 2020-05-29 13:03 | NURSING ---
Called transfer report to [facility]. Gave nursing report to nurse Tanner. His questions were answered. Reviewed current orders. Patient to discharge back to [facility] at 1600 via [facility].
[2020-05-29 14:00] VITALS: PULSE 61; RESP 16
== END 2020-05-29 16:55 | disposition skilled nursing facility (03) | DRG 292 ==
LOC: ED 18:02 → PCU 19:46
PROVIDERS: Nurse Practitioner Family; Physician Assistant; Emergency Provider Emergency Medicine; PCP Family Medicine Geriatric Medicine; Visit Provider Internal Medicine
DX: I11.0 Hypertensive heart disease with heart failure (principal); J98.11 Atelectasis; I48.20 Chronic atrial fibrillation, unspecified; Z68.45 Body mass index [BMI] 70 or greater, adult; E66.01 Morbid (severe) obesity due to excess calories; G47.33 Obstructive sleep apnea (adult) (pediatric); F32.9 Major depressive disorder, single episode, unspecified; F41.9 Anxiety disorder, unspecified; E78.5 Hyperlipidemia, unspecified; I50.23 Acute on chronic systolic (congestive) heart failure; M51.36 Other intervertebral disc degeneration, lumbar region; J44.9 Chronic obstructive pulmonary disease, unspecified; M51.37 Other intervertebral disc degeneration, lumbosacral region; L98.492 Non-pressure chronic ulcer of skin of other sites with fat layer exposed; E03.9 Hypothyroidism, unspecified; M06.9 Rheumatoid arthritis, unspecified; I42.9 Cardiomyopathy, unspecified; Z79.890 Hormone replacement therapy; Z82.49 Family history of ischemic heart disease and other diseases of the circulatory system; Z90.49 Acquired absence of other specified parts of digestive tract; Z79.899 Other long term (current) drug therapy
CPT/HCPCS: 36415; 71045; 80048; 80061; 83880; 84484; 85025; 93005; 94002; 94660; 97110; 97162; 97166; 97530; 97535; 97802; 99285; A4216; J1940